=== PATIENT | female | born 1965 | race Caucasian/White ===

== ENCOUNTER 2022-03-29 17:57 | Emergency (ER) | payer OTHER, SELFPAY ==
[2022-03-29 18:10] VITALS: BP 112/76; PULSE 66; RESP 20; TEMP 35.8; O2SAT 100; BMI 22.4
--- NOTE | 2022-03-29 18:15 | ED.UPPEXIN ---
HPI - Extremity Injury (Upper) General Time Seen by Provider: 18:15 Date Seen: 03/29/22 Chief Complaint: Extremity Pain/Injury, Upper Stated Complaint: Broken L wrist Time Seen by Provider: 03/29/22 18:01 Source: patient, RN notes reviewed and old records reviewed Mode of arrival: ambulatory Limitations: no limitations History of Present Illness HPI narrative: Patient is a very pleasant 57-year-old female otherwise healthy who comes to the emergency room with injury to her left wrist. Patient was ice skating when she fell onto her wrist. Since that time she has had pain. She also sustained of laceration to the medial aspect of the wrist. Distally she states she can move her fingers. She denies any other injury. Movement increases her discomfort. She is currently in stabbed to with ice. Related Data Home Medications Medication Instructions Recorded Confirmed cetirizine 10 mg tablet 10 mg PO DAILY PRN 01/27/22 03/29/22 melatonin 3 mg capsule 6 mg PO .Bedtime as needed PRN 01/27/22 03/29/22 venlafaxine 37.5 mg 37.5 mg PO DAILY 01/27/22 03/29/22 capsule,extended release 24 hr Previous Rx's Medication Instructions Recorded levothyroxine 50 mcg tablet 50 mcg PO DAILY #90 tabs 03/16/22 Allergies Allergy/AdvReac Type Severity Reaction Status Date / Time penicillin V Allergy Mild Rash Verified 01/27/22 11:07 Review of Systems Status of ROS: Reports: 6 or more systems reviewed and unremarkable except as noted in History and below Const: Denies: fever Cardio: Denies: chest pain or shortness of breath with exertion Resp: Denies: shortness of breath GI: Denies: abdominal pain PFSH PFSH Surgical History History of hysterectomy with bilateral oophorectomy History of rotator cuff surgery History of shoulder surgery Family History Other Abdominal aortic aneurysm (AAA) Colonic polyp Coronary artery disease Thyroid disease Social History Smoking Status: Never smoker Do you use any of these nicotine containing products: None Second hand tobacco smoke exposure: No How often do you have a drink containing alcohol: 4 or more times a week How many standard drinks containing alcohol do you have on a typical day: 1 or 2 How often do you have six or more drinks on one occasion: Never AUDIT-C Alcohol total score: 4 Non-prescribed substance use: denies use Exam Narrative: Exam Narrative: Patient is alert and oriented. Eyes are clear. No acute distress. Left wrist shows deformity. Distally sensation and motor is intact. Patient still has her wedding rings on which we are attempting to remove. I suspect that the swelling is going to increase. Puncture wound jagged about 3.5 mm noted on the volar medial surface of the wrist. There is some subcutaneous fat extruding from this wound. I do not note a foreign body. There is no erythema. No other wounds in this area. Further exam shows no evidence of head trauma. Oral cavity with moist mucous membranes. Posterior oropharynx is clearly visualized. Heart is with regular rate and rhythm and lungs are clear in all lung bailey. Const: Vital Signs, click to edit/add: Vital Signs - 24 hr 03/29/22 18:10 03/29/22 19:30 Temperature 96.5 F L Pulse Rate [Pulse Oximeter] 66 71 Respiratory Rate 20 16 Blood Pressure [Ri ght Upper Arm] 112/76 143/87 H Pulse Oximetry 100 100 Oxygen Delivery Me thod Room Air Room Air Documenting provider has reviewed patient's vital signs: yes Course Vital Signs Vital signs: Initial Vital Signs Temperature 96.5 F L 03/29/22 18:10 Temperature Source Temporal Artery Scan 03/29/22 18:10 Pulse Rate 66 03/29/22 18:10 Respiratory Rate 20 03/29/22 18:10 Blood Pressure 112/76 03/29/22 18:10 Blood Pressure Mean 88 03/29/22 18:10 Blood Pressure Position Sitting 03/29/22 18:10 Pulse Oximetry 100 03/29/22 18:10 Oxygen Delivery Method 03/29/22 18:10 Vital Signs Temperature 96.5 F L 03/29/22 18:10 Pulse Rate 66 03/29/22 18:10 Respiratory Rate 20 03/29/22 18:10 Blood Pressure 112/76 03/29/22 18:10 Pulse Oximetry 100 03/29/22 18:10 Oxygen Delivery Method 03/29/22 18:10 Temperature 96.5 F L 12/26/22 18:10 Pulse Rate 71 03/29/22 19:30 Respiratory Rate 16 03/29/22 19:30 Blood Pressure 143/87 H 03/29/22 19:30 Pulse Oximetry 100 03/29/22 19:30 Oxygen Delivery Method 03/29/22 19:30 MDM - Extremity Injury (Upper) MDM Narrative Medical decision making narrative: 1. Left wrist fracture-comminuted left wrist fracture. Will be repaired tomorrow. I had the pleasure of speaking with CHASE Guzman from Orthopedics. He has asked me to do H&P on patient so that she may go to the OR tomorrow under the care of Dr. Juarez. COVID test is pending. Patient is placed in a splint. Distally sensation and motor continues to be intact. In the ED patient received Vicodin 08/3250 tablet and Zofran 4 mg p.o.. She appears to be feeling better at this time. Because of the small puncture wound we will be starting patient on Keflex 500 mg p.o. b.i.d. x7 days. Will also give her pain medication through [facility], [place] 5/325, 1-2 tabs p.o. q.4-6 hours p.r.n. pain, 20. With no refills. She may utilize ibuprofen 800 mg every 8 hours if she likes and then use [place] for breakthrough pain. Zofran 4 mg ODT 1 tab p.o. Q 8 hours p.r.n. nausea. 2. Planned surgical intervention-patient will remain NPO tonight but may take pain medications with small sips of water as needed. She is to await phone call from Orthopedics at approximately 0800 hours for further guidance. 3. Clearance for surgery-patient represents low risk for surgery. Exam is negative for any abnormalities. Diet has no personal or family history of DVT, problems with anesthesia with the exception of some nausea and vomiting post anesthesia. No history of malignant hyperthermia in the family. 2. Disposition-home at this time. Patient represents low risk for surgery. Medical Records Attestation: I reviewed the patient's medical records. Imaging Data Left wrist x-ray: Attestation: I have reviewed the pertinent imaging results. My impression: Comminuted fracture of the distal radius. Radiologist's impression: There is an impacted fracture of the distal radius with apex dorsal angulation. The joint spaces are grossly preserved. There is mild carpal soft tissue swelling. Impression: Impacted fracture of the distal radius with apex dorsal angulation and associated soft tissue swelling. Discharge Plan Discharge Clinical Impression: Fracture of left wrist Patient Disposition: Home, Self-Care Condition: Improved Additional Instructions: Start Keflex tonight as prophylaxis for infection. Expect phone call shortly after 0800 hours for surgical time. Please do not eat or drink after midnight.. You may take your pain medications with small sips of water if necessary however. If you do not hear from Orthopedics by 1000 hours call them at [phone]. For pain you may use ibuprofen as needed. For pain not relieved by ibuprofen you may use Vicodin which is a combination of hydrocodone and Tylenol. 1-2 tabs every 4-6 hours as needed. Zofran may be used if you have nausea. Return to the emergency room for worsening symptoms and as needed. Prescriptions: No Action venlafaxine 37.5 mg capsule,extended release 24hr 37.5 mg PO DAILY cetirizine 10 mg tablet 10 mg PO DAILY PRN melatonin 3 mg capsule 6 mg PO .Bedtime as needed PRN levothyroxine 50 mcg tablet 50 mcg PO DAILY Qty: 90 0RF Follow Up/Referrals: Jl Fields PA-C [Primary Care Provider] - Stand Alone Forms: [employer] Info Instructions
--- NOTE | 2022-03-29 18:20 | CRLHL7_ITS ---
For Patients: As a result of the Century Cures Act, medical imaging exams and procedure reports are released immediately into your electronic medical record. You may view this report before your referring provider. If you have questions, please contact your health care provider. Indication: Fall with deformity Comparison: None available. Technique: AP, lateral, and oblique views left wrist were obtained. Findings: There is an impacted fracture of the distal radius with apex dorsal angulation. The joint spaces are grossly preserved. There is mild carpal soft tissue swelling. Impression: Impacted fracture of the distal radius with apex dorsal angulation and associated soft tissue swelling. Dictated by Rosendo Solorio MD @ 03/29/2022 7:26:00 PM (Electronically Signed)
--- NOTE | 2022-03-29 18:36 | ED.NURSE ---
Rings removed and given to spouse.
[2022-03-29] MEDS: HYDROCODONE-ACETAMIN 5-325 MG 1 TAB PO (19:28)
[2022-03-29] MEDS: ONDANSETRON ODT 4 MG TAB PO (19:28)
[2022-03-29 19:30] VITALS: BP 143/87; PULSE 71; RESP 16; O2SAT 100
--- NOTE | 2022-03-29 19:35 | ED.NURSE ---
Puncture wound irrigated with 50ml NS.
[2022-03-29 20:27] LABS: SARS PCR* Negative SARS-CoV-2 (Negative)
== END 2022-03-29 20:21 | disposition home or self-care (01) ==
PROVIDERS: Emergency Provider Family Medicine; PCP Physician Assistant Medical
DX: S52.502A Unspecified fracture of the lower end of left radius, initial encounter for closed fracture (principal); V00.211A Fall from ice-skates, initial encounter
CPT/HCPCS: 29125; 73110; 87635; 99284; A9270

== ENCOUNTER 2022-03-30 06:00 | Day surgery (SDC) | payer OTHER, SELFPAY ==
[2022-03-30] VITALS (8 sets, daily range): BP systolic 96–120; BP diastolic 48–75; PULSE 60–72; RESP 16; TEMP 36.3–36.6; O2SAT 91–100; BMI 22.1
[2022-03-30] MEDS: LACTATED RINGERS 1000 ML 1,000 ML 100 ML IV (07:00)
[2022-03-30] MEDS: SODIUM CHLORIDE 0.9 % (FLUSH) 10 ML SYRINGE IVF (07:07)
[2022-03-30] MEDS: fentaNYL 100 MCG/2 ML inj IVP (07:10)
[2022-03-30] MEDS: MIDAZOLAM HCL 1 MG/ML inj IVP (07:10)
--- NOTE | 2022-03-30 07:15 | CRLHL7_ITS ---
For Patients: As a result of the Cures Act, medical imaging exams and procedure reports are released immediately into your electronic medical record. You may view this report before your referring provider. If you have questions, please contact your health care provider. Indication: LEFT WRIST ORIF Technique: Three fluoroscopic images of the left wrist. Fluoroscopic time 30.6 seconds. IMPRESSION: Fluoroscopic guidance for open reduction internal fixation of distal radial fracture. Dictated by Yemi Waggoner MD @ 03/30/2022 8:31:35 AM (Electronically Signed)
--- NOTE | 2022-03-30 07:20 | SUR.PREOP ---
TIME?OUT:?0708 PT/RN/MDA?VERIFICATION?OF?SURGICAL?SITE Left Wrist,?PROCEDURE Ax block,?AND?CONSENT OBTAINED?PRIOR?TO?INVASIVE?PROCEDURE.
[2022-03-30] MEDS: CEFAZOLIN 1 GM inj IVP (07:35)
--- NOTE | 2022-03-30 08:19 | PM.ORPRC ---
Procedure Note Date of procedure: 03/30/22 Procedure: SURGEON: Charles Juarez MD SCRAP PREPARATION SUPERVISOR: JORDIN Boss PREOPERATIVE DIAGNOSIS: Angulated 3+ part extra-articular left upper extremity distal radius fracture POSTOPERATIVE DIAGNOSIS: Angulated 3+ part extra-articular left upper extremity distal radius fracture NAME OF OPERATION: Open reduction internal fixation ANESTHESIA: Axillary block plus monitored anesthesia care ESTIMATED BLOOD LOSS: 0 mL COMPLICATIONS: None SPECIMENS: None DRAINS: None PREOPERATIVE ANTIBIOTICS: Ancef 1 grams INDICATIONS: The patient is a 57-year-old who fell landing on their upper extremity sustaining the above injury. Given the amount of angulation, reduction and plate fixation were recommended. The risks, benefits and expected outcomes were discussed in detail. These included but were not limited to: Infection, bleeding, injury to blood vessel or nerve, venous thromboembolism. All questions were answered to their satisfaction. Use of an press assistant and feeder was necessary throughout the case for patient positioning and safety, maintenance of the reduction, surgical site dressing and splint application. PROCEDURE: A supraclavicular block was placed by Anesthesia. The patient was placed supine on the operating room table. IV sedation was administered. The reduction was obtained with longitudinal traction and volar force on the distal fragment, held by the press assistant and feeder. The image intensifier was used to confirm an excellent reduction. The extremity was prepped and draped in the usual sterile fashion. The limb was exsanguinated with the Jeanmarie bandage. The pneumatic tourniquet was inflated to 250 mm of mercury. A longitudinal incision was made over the flexor carpi radialis. Subcutaneous dissection was taken sharply through the FCR sheath. The FCR was retracted radially. Sharp dissection was carried through the floor of the FCR sheath. The flexor pollicis longus was retracted ulnarly. Sharp dissection was carried through the radial border of the pronator quadratus which was elevated ulnarly, exposing the fracture site. The press assistant and feeder held retractors to expose the fracture. The volar cortex of the fracture is anatomically aligned. We placed a Synthes standard locking plate over the volar cortex. It was provisionally held with 2 K-wires, while the press assistant and feeder held the reduction. Its placement was confirmed with the image intensifier. We placed a cortical screw in the slot. We placed a locking screw in the shaft. We then filled the distal screw holes with smooth locking pegs using the image intensifier to confirm their extra-articular placement. Finally, a 2nd locking screw was placed in the shaft fragment. This construct was imaged in multiple views and was felt to be well placed with an anatomic reduction and well placed implants. The ulnar wound was explored and was felt to be an outside in puncture wound. This wound and the surgical wound were irrigated normal saline. Subcutaneous tissues were reapproximated a 2-0 Vicryl, skin with a running 3-0 Monocryl in a subcuticular fashion. Glue was used to seal the skin. A dry dressing and short-arm dorsal volar splint was applied. These steps were all completed by the press assistant and feeder. The tourniquet was released, sponge and needle counts were correct x2. The patient tolerated the procedure well, there were no apparent complications. They were taken to the postanesthesia care unit in satisfactory condition. PLAN: The patient will be discharged home. They will work on elevation of the hand and active range of motion of the fingers. They will follow up next week in the office for a wound check with a PA, oblique, lateral and fossa lateral view of the wrist out of the splint prior to being seen in preparation for early active motion with Orthoplast splint protection.
--- NOTE | 2022-03-30 08:24 | P.ORCN_ITS ---
History of Present Illness HPI Date Seen: 03/30/22 Requesting physician: Eva Lindsey Chief complaint: Surgery Narrative: Patient is a 57-year-old, [id number] woman who fell ice skating last evening. She landed on her outstretched left upper extremity. She was diagnosed with a distal radius fracture. Reduction and fixation were recommended. She has never injured this wrist or had surgery previously. She does not have diabetes, does not smoke cigarettes and is not on blood thinners. Review of Systems Narrative: The patient denies: Fever, night sweats, shaking chills, nausea, vomiting, diarrhea, chest pain, chest pressure, shortness of breath, no rash, no change in hearing or vision, no issues with bleeding or clotting PFSH PFSH Surgical History (Updated 03/30/22 @ 11:31 by Sandra Rodriguez) History of hysterectomy with bilateral oophorectomy S/P ORIF (open reduction internal fixation) fracture (03/30/22) Status post right rotator cuff repair (01/24/09) Family History Other Abdominal aortic aneurysm (AAA) Colonic polyp Coronary artery disease Thyroid disease Social History Smoking Status: Never smoker Do you use any of these nicotine containing products: None Second hand tobacco smoke exposure: No How often do you have a drink containing alcohol: 4 or more times a week Alc ohol type: beer, wine and hard liquor How many standard drinks containing alcohol do you have on a typical day: 1 or 2 How often do you have six or more drinks on one occasion: Never AUDIT-C Alcohol total score: 4 Non-prescribed substance use: denies use Caffeine: Yes (2 cups daily) Are you using contraception or practicing any form of control: No Meds Home Medications and Allergies Home Medications Medication Instructions Recorded Confirmed Type cetirizine 10 mg tablet 10 mg PO DAILY PRN 01/27/22 03/29/22 History melatonin 3 mg capsule 6 mg PO .Bedtime as needed PRN 01/27/22 03/29/22 History venlafaxine 37.5 mg 37.5 mg PO DAILY 01/27/22 03/29/22 History capsule,extended release 24 hr Allergies Allergy/AdvReac Type Severity Reaction Status Date / Time penicillin V Allergy Mild Rash Verified 01/27/22 11:07 Ortho Exam Narrative Exam Narrative: The patient is examined supine on the hospital cart in same-day surgery. The left upper extremity is in a short-arm dorsal volar splint. CMS to the fingers appears normal. Const Vital Signs, click to edit/add: Vital Signs - 24 hr 03/30/22 06:21 03/30/22 07:05 03/30/22 07:15 Temperature 97.7 F Pulse Rate 66 72 60 Respiratory Rate 16 16 16 Blood Pressure 104/48 L 120/75 98/70 Pulse Oximetry 97 100 100 Oxygen Delivery Method Room Air Nasal Cannula Nasal Cannula Oxygen Flow Rate 2 2 Results Diagnostic results Additional Comments: Three views of the left wrist show an extra-articular distal radius fracture with apex volar angulation. There is a significant amount of dorsal cortex c omminution. There is no gas in the soft tissues. Assessment and Plan Assessment and plan (1) Fracture of left wrist: Status: Resolved Assessment and Plan: per extremity distal radius fracture I told the patient and her that her injury is best treated with ORIF. We will plan to take her to the operating room now. Plan Angulated, comminuted left upper extremity distal radius fracture I told the patient and her that her injury is best treated with ORIF. We will plan to take her to the operating room now.
--- NOTE | 2022-03-30 08:45 | W.ANESCHARGE ---
Anesthesia Charges Start Date/Time Anesthesia Start Date: 03/30/22 Anesthesia Start Time: 07:27 Stop Date/Time Anesthesia Stop Date: 03/30/22 Anesthesia Stop Time: 08:45 Summary Emergency: No
--- NOTE | 2022-03-30 09:11 | SUR.PHASEII ---
Pt tolerated coffee, water, and pudding.
--- NOTE | 2022-03-30 09:15 | W.PM.NB ---
Nerve Block Nerve Block Time Seen by Provider: 07:00 Date Seen: 03/30/22 Type of block requested by surgeon for post-operative analgesia: axillary Side: left Time out performed: Yes Verification of patient name: Yes Verification of date of : Yes Site marking: site marked Name of person performing procedure: Jeramy Dupont Continuous monitoring Was continuous monitoring of O2 sat, B/P, satellite project site monitor, recorded every 15 minutes?: Yes Procedure Checklist: sterile prep, needles and gloves Ultrasound guided. Images saved: Yes Medications given in 5ml increments after negative aspiration: Ropivicaine %: 0.5 mL: 20 Needle gauge: 20 Decadron (mg): 10 Precedex (mcg): 25 Patient tolerated procedure well: Yes Additional comments: Injected in 5ml increments after negative aspiration Block Charges Block Charge (with Pro Fee): Axillary Nerve Use of Ultrasound Machine for Block: Yes- US Guidance/pain block
--- NOTE | 2022-03-30 09:48 | SUR.PHASEII ---
Pt verbalized readiness to be discharged. Pt and verbalized understanding of discharge instructions.
== END 2022-03-30 09:48 | disposition home or self-care (01) ==
PROVIDERS: PCP Physician Assistant Medical; Visit Provider Orthopaedic Surgery
PROC: (CPT 25575; principal; 2022-03-30 07:15)
DX: S52.552A Other extraarticular fracture of lower end of left radius, initial encounter for closed fracture (principal); W00.0XXA Fall on same level due to ice and snow, initial encounter; Y93.21 Activity, ice skating; Y92.330 Ice skating rink (indoor) (outdoor) as the place of occurrence of the external cause; Y99.8 Other external cause status
CPT/HCPCS: 25607; 01830; 64417; 73110; 76000; 76942; A4580; C1713; J0690; J1100; J2250; J2370; J2405; J2704; J2795; J3010; J7120

== ENCOUNTER 2022-04-07 13:48 | Outpatient (RCR) | payer OTHER, SELFPAY | END 2022-10-21 23:59 | disposition home or self-care (01) | PROVIDERS: PCP Physician Assistant Medical; Visit Provider Orthopaedic Surgery | DX: M25.532 Pain in left wrist (principal); Z51.89 Encounter for other specified aftercare | CPT/HCPCS: 97165; L3906 ==

== ENCOUNTER 2022-06-23 07:11 | Outpatient (CLI) | payer OTHER, SELFPAY | END 2022-06-23 07:12 | disposition home or self-care (01) | PROVIDERS: PCP Physician Assistant Medical; Visit Provider Physician Assistant Medical | DX: Z00.00 Encounter for general adult medical examination without abnormal findings (principal); E03.9 Hypothyroidism, unspecified; N95.9 Unspecified menopausal and perimenopausal disorder | CPT/HCPCS: 80053; 80061; 84443 ==

== ENCOUNTER 2022-10-13 08:52 | Day surgery (SDC) | payer OTHER, SELFPAY ==
[2022-10-13] MEDS: KETOROLAC OPHTH 0.5% 1 DROP EYE-RIGHT ×2 (09:15→09:20)
[2022-10-13] MEDS: TETRACAINE 0.5% OPHTH 1 DROP EYE-RIGHT ×2 (09:15→09:20)
[2022-10-13 09:17] VITALS: BMI 22.2
[2022-10-13] MEDS: SODIUM CHLORIDE 0.9 % (FLUSH) 10 ML SYRINGE IVF (09:20)
[2022-10-13 09:25] VITALS: BP 125/81; PULSE 72; RESP 16; TEMP 36.7; O2SAT 100
--- NOTE | 2022-10-13 09:38 | W.ANESCHARGE ---
Anesthesia Charges Start Date/Time Anesthesia Start Date: 10/13/22 Anesthesia Start Time: 09:58 Stop Date/Time Anesthesia Stop Date: 10/13/22 Anesthesia Stop Time: 10:33
--- NOTE | 2022-10-13 09:48 | SUR.PREOP ---
The eye drops brought by the patient (Ketorolac and Prednisolone) are examined and I have determined they are labeled by the patient's pharmacy for this patient as prescribed by the surgeon. The bottles are intact, recently obtained and appear to be correct.
[2022-10-13] MEDS: TETRACAINE 0.5% OPHTH 2 DROP EYE-RIGHT (10:02)
[2022-10-13] MEDS: BALANCED SALT IRRIG SOLN 15 ML EYE-RIGHT (10:08)
--- NOTE | 2022-10-13 10:08 | W.ANESCHARGE ---
Anesthesia Charges Start Date/Time Anesthesia Start Date: 10/13/22 Anesthesia Start Time: 09:58 Stop Date/Time Anesthesia Stop Date: 10/13/22 Anesthesia Stop Time: 10:33
--- NOTE | 2022-10-13 10:39 | W.PM.OPTPROC ---
Procedure Note Date of procedure: 10/13/22 Will [facility] bill your pro fee for this procedure?: Yes Procedure Description: SURGEON: Amy Juarez MD PREOPERATIVE DIAGNOSIS: Nuclear sclerotic cataract, right eye. POSTOPERATIVE DIAGNOSIS: Nuclear sclerotic cataract, right eye. NAME OF OPERATION: Phacoemulsification of cataract with posterior chamber intraocular lens implantation in the right eye. ANESTHESIA: Topical. ESTIMATED BLOOD LOSS: Less than 2 cc. COMPLICATIONS: None. PATHOLOGY SPECIMEN: None. INDICATIONS: See consult note for details. The risks, benefits and alternatives of the procedure were explained to the patient, who elected to proceed and signed informed consent to do so. PROCEDURE: The patient was brought to the pre-holding area where the right eye was identified as the operative eye. I placed my initials above this eye. The patient received eye drops consisting of 0.5% tetracaine, 1% tropicamide, 10% phenylephrine, and 0.5% ketorolac. The patient was then brought to the operating room where the right eye was again identified as the operative eye. The eye was prepped with Betadine and draped in the usual sterile ophthalmic fashion. A #15 super-sharp blade was used to create a paracentesis site. 1% non-preserved intracameral lidocaine was injected into the anterior chamber. Endocoat was injected into the anterior chamber. A 2.4 mm keratome was used to create a three-plane self-sealing incision 1 mm anterior to the temporal limbus. A cystotome was used to create an anterior capsular leaflet. The Utrata forceps were used to extend this to form a continuous curvilinear capsulorrhexis. Hydrodissection was performed. The cataract was removed with phacoemulsification using the [id number] technique. The irrigation and aspiration tip was used to remove the remaining cortex. Healon was injected into the capsular bag. An BENNIE ZCB00 intraocular lens of 22.0 diopters was injected into the capsular bag. The irrigation and aspiration tip was used to remove the remaining viscoelastic. Balanced salt solution on a cannula was used to hydrate the wound, and the wound was found to be watertight. The pupil was noted to be round. DISPOSITION: The patient was taken to the recovery room and discharged to home in stable condition. The patient was instructed to call me or go to the emergency department with any sudden change, including dramatic loss of vision, severe pain in the eye or eyebrow region, nausea, or vomiting. The patient will follow up in the clinic tomorrow morning.
[2022-10-13 10:43] VITALS: BP 124/78; PULSE 69; RESP 16; TEMP 36.6; O2SAT 96
== END 2022-10-13 10:50 | disposition home or self-care (01) ==
LOC: OR 08:52
PROVIDERS: PCP Physician Assistant Medical; Visit Provider Ophthalmology
PROC: (CPT 66984; principal; 2022-10-13 09:00)
DX: H25.11 Age-related nuclear cataract, right eye (principal)
CPT/HCPCS: 66984; 00142; A9270; J2250; J3010; V2632

== ENCOUNTER 2023-01-03 14:33 | Outpatient (CLI) | payer OTHER, SELFPAY ==
--- NOTE | 2023-01-03 15:00 | CRLHL7_ITS ---
For Patients: As a result of the Century Cures Act, medical imaging exams and procedure reports are released immediately into your electronic medical record. You may view this report before your referring provider. If you have questions, please contact your health care provider. BILATERAL SCREENING MAMMOGRAM WITH COMPUTER-AIDED DETECTION AND TOMOSYNTHESIS TECHNIQUE: CC and MLO views were obtained. These mammographic images have been obtained using full-field digital technique. These mammographic images were interpreted with the benefit of computer-aided detection. Breast Tomosynthesis was used in this interpretation. COMPARISON FILM: 10/27/20, 10/22/19, 09/06/18. FINDINGS: There are scattered areas of fibroglandular density IMPRESSION: There is no radiographic evidence for malignancy. ASSESSMENT: BI-RADS Category 1: Negative RECOMMENDATION: Routine screening mammogram in 1 year. A lay language report of this examination will be provided to the patient. Yemi Waggoner M.D. Diagnostic Radiologist [email or web address] WILLIE/Dictated by: Yemi Waggoner MD @ 01/04/2023 12:22:00 PM (Electronically Signed)
== END 2023-01-03 14:34 | disposition home or self-care (01) ==
LOC: MAMMO 14:34
PROVIDERS: PCP Physician Assistant Medical; Visit Provider Physician Assistant Medical
DX: Z12.31 Encounter for screening mammogram for malignant neoplasm of breast (principal)
CPT/HCPCS: 77063; 77067

== ENCOUNTER 2023-01-17 17:02 | Outpatient (CLI) | payer OTHER, SELFPAY ==
--- NOTE | 2023-01-17 16:30 | CRLHL7_ITS ---
For Patients: As a result of the Century Cures Act, medical imaging exams and procedure reports are released immediately into your electronic medical record. You may view this report before your referring provider. If you have questions, please contact your health care provider. INDICATION: Tremors. COMPARISON: None. TECHNIQUE: Multiplanar T1, T2, FLAIR and diffusion-weighted imaging. FINDINGS: Normal brain parenchymal morphology and signal intensity. No intracranial hemorrhage. No abnormal ventricular dilatation. Intracranial vascular flow voids preserved. No mass effect. No midline shift. No restricted diffusion to suggest acute ischemia. No susceptibility artifact of remote hemorrhage. Small developmental venous anomaly left basal ganglia Bilateral orbits are unremarkable. Normal appearing sella. Mild mucosal thickening of left maxillary sinus. Remaining visualized paranasal sinuses mastoid air cells are unremarkable. IMPRESSION: 1. No acute intracranial abnormality. 2. Normal brain parenchymal morphology and signal intensity. 3. No acute or chronic intracranial hemorrhage. Dictated by Audi Mendoza MD @ 01/17/2023 7:59:57 PM (Electronically Signed)
== END 2023-01-17 17:03 | disposition home or self-care (01) ==
LOC: MRI 17:02
PROVIDERS: PCP Physician Assistant Medical; Visit Provider Physician Assistant Medical
DX: R25.1 Tremor, unspecified (principal)
CPT/HCPCS: 70551

== ENCOUNTER 2023-01-19 07:48 | Outpatient (CLI) | payer OTHER, SELFPAY ==
--- NOTE | 2023-01-19 08:15 | CRLHL7_ITS ---
For Patients: As a result of the Century Cures Act, medical imaging exams and procedure reports are released immediately into your electronic medical record. You may view this report before your referring provider. If you have questions, please contact your health care provider. INDICATION: Vocal changes. Dysphagia. TECHNIQUE: Recorded video swallow performed in conjunction with speech therapy. FINDINGS: The patient tolerated all preparations of barium very well. No aspiration. No penetration. No significant holdup of barium. With a chin-tuck maneuver it was much easier for the patient to ingest barium. Please see detailed notes from speech therapy. 2 minutes 27 seconds fluoroscopy time utilized. IMPRESSION: Essentially normal recorded video swallow. A chin-tuck maneuver did aide in the passage of barium. Please see detail notes from speech therapy. Dictated by Magno Walker MD @ 01/19/2023 11:25:39 AM (Electronically Signed)
--- NOTE | 2023-01-19 16:47 | SLP.EVAL ---
Dr. Ivey Please review, sign and return. Dr. Donnie Mckenzie asked that I also send this to you for review. Thank you Crystal Zavala, JOB SPECIFICATION WRITER JOB SPECIFICATION WRITER Chet Rosenberg Start: 01/19/23 09:51 Freq: Status: Active Protocol: Document 01/19/23 09:52 HJS (Rec: 01/19/23 10:16 HJS [id number]) E-signed By Crystal Zavala, NAZ, JOB SPECIFICATION WRITER JOB SPECIFICATION WRITER System Review History & Reason For Referral Type of Speech Evaluation Modified Barium Swallow Evaluation Rehabilitation Order Evaluation Date of Order 01/11/23 Reason for Referral coughing/choking with liquids Medical Diagnosis vocal fold dysfunction Treatment Diagnosis dysphagia Hearing Information Hearing Status Within normal Vision Information Vision Status within normal Patient Orientation Orientation & Mental Status within normal JOB SPECIFICATION WRITER Initial Assessment/POC Subjective Information Subjective/Pain Comment Patient independently ambulated to the xray suite. Assessment & Impression Assessment/Impression Patient is a 57 year old female referred for a modified barium swallow study due to choking/coughing with thin liquid. She started to notice this after having pertussis a year and a half ago and bronchitis a few months ago both times with significant, hard coughing. She has noticed a change in her voice too - it is lower. Dr. Ivey diagnosed vocal fold dysfunction, specifically the folds are not fully adducting. She reports she was just recently evaluated by a neurologist for possible neurological disease such as ALS but this was negative. ORAL MOTOR FUNCTION AND DENTITION Adequate tongue and lip movement and adequate natural dentition. THIN LIQUID Patient took sips of thin liquid by cup. She swallowed and reported the swallow was a little effortful and needed to swallow a couple of times to clear. No penetration or aspiration occurred. MILDLY THICK LIQUID (NECTAR) Patient took sips of mildly thick liquid. No significant change to ease of swallow. No penetration or aspiration. THIN LIQUID WITH CHIN TUCKS Patient took sips of thin liquid and was viewed with a central chin tuck as well as a chin tuck and turn to the right and left. She reported that the central chin tuck was much easier going down. The turns to the right and left made no difference. Again, no penetration or aspiration occurred. PUREE Patient given a teaspoon of puree. She was able to manipulate and swallow without penetration or aspiration. Slightly more residual after the swallow but not significant. MUFFIN AND COOKIE WITH BARIUM PUREE Patient given separate trials of muffin and cookie each mixed with barium puree. She was able to chew and swallow without penetration or aspiration and no significant pharyngeal residue. IMPRESSIONS AND RECOMMENDATIONS Patient did not exhibit any penetration or aspiration however swallowing especially thin liquids did require a little effort. Trialed a central chin tuck and a chin tuck with head turn to the right and left. The central chin tuck patient reported was the easiest and most helpful. Recommended to patient that she use a chin tuck with thin liquids. Will give patient information for an JOB SPECIFICATION WRITER with vocal fold dysfunction experience for therapy if appropriate. The images were reviewed with the patient and questions answered. Therapist Signature & License # I Certify That Therapy Services Provided Therapist Signature & License Number Crystal Zavala, [facility]JOB SPECIFICATION WRITER, # [id number] Physician Signature Signature of Physician Indicates Medically Needed Services Physician Signature & Date Required Please Sign/Date Here Speech/Language Pathology Billing Units Billing Units Eval Swallow Motion Fluoro 1
== END 2023-01-19 07:49 | disposition home or self-care (01) ==
LOC: RAD 07:49
PROVIDERS: PCP Physician Assistant Medical; Visit Provider Otolaryngology
DX: R13.10 Dysphagia, unspecified (principal); T17.908A Unspecified foreign body in respiratory tract, part unspecified causing other injury, initial encounter
CPT/HCPCS: 74230; 92611

== ENCOUNTER 2023-01-26 09:46 | Outpatient (CLI) | payer OTHER, SELFPAY | END 2023-01-26 09:47 | disposition home or self-care (01) | PROVIDERS: PCP Physician Assistant Medical; Visit Provider Physician Assistant Medical | DX: R13.10 Dysphagia, unspecified (principal); R49.0 Dysphonia; R25.1 Tremor, unspecified; E03.9 Hypothyroidism, unspecified; N95.9 Unspecified menopausal and perimenopausal disorder; C54.1 Malignant neoplasm of endometrium; Z85.42 Personal history of malignant neoplasm of other parts of uterus | CPT/HCPCS: 82550 ==

== ENCOUNTER 2023-07-27 07:45 | Outpatient (CLI) | payer OTHER, MEDICARE, SELFPAY ==
--- OUTSIDE RECORDS SUMMARY | 2023-07-28 06:09 | XMS_ITS | Referral Summary ---
Author Name Unknown Organization [facility] Address [address] [place] [id number] Care Team Providers Care Exhibition Specialist Name Role Phone Unavailable Primary Care Provider Unavailabl e Source Comments Patient records contain information from all sites at [facility]. For routine questions regarding patient records, call [phone] during business hours, M-F 8:00 AM - 5:00 PM Central Time. Record requests for emergency care only can be directed to [phone] at any time.[facility] Allergies Active Allergy Reactions Criticality Noted Date Comments Penicillin V Rash Low 01/27/2022 Penicillins Rash High 06/18/2013 Medications Medication Sig Dispensed Refills Start Date End Date Status levothyroxine (SYNTHROID, LEVOTHROID) 50 mcg tablet Take 1 tablet by mouth daily. Active venlafaxine XR (EFFEXOR-XR) 37.5 mg 24 hr capsule Take 1 capsule by mouth daily. Active Active Problems No known active problems Social History Tobacco Use Types Packs/Day Years Used Date Smoking Tobacco: Never Smokeless Tobacco: Never Tobacco Cessation:Counseling Given: Not Answered Alcohol Use Standard Drinks/Week Comments Yes 6 (1 standard drink = 0.6 oz pur e alcohol) Nutrition Answer Date Recorded Nutrition: EVOO Fat Source Unknown 01/12 Nutrition: Servings of Fruits/Vegetables per Day Not on file 01/12/2023 Dental Answer Date Recorded Dental: Regular Dentist Unknown 01/13/20 Sex and Gender Information Value Date Recorded Sex Assigned at Not on file Gender Identity Not on file Sexual Orientation Not on file Last Filed Vital Signs Vital Sign Reading Time Taken Comments Blood Pressure 99/72 01/18/2023 12:54 PM CDT Pulse 80 01/18/2023 12:54 PM CDT Temperature 36.7 ??C (98.1 ??F) 01/18/2023 1 2:54 PM CDT Respiratory Rate 06/21/2013 5:27 PM CDT Value from [facility]. Oxygen Saturation 99% 01/18/2023 12: 54 PM CDT Inhaled Oxygen Concentration - - Weight 63.9 kg (140 lb 14 oz) 01/18/2023 12:54 PM CDT Height 168.1 cm (5' 6.18) 01/18/2023 1 2:54 PM CDT Body Mass Index 22.61 01/18/2023 12:54 PM CDT Plan of Treatment Not on file
--- OUTSIDE RECORDS SUMMARY | 2023-07-28 06:09 | XMS_ITS | Clinical Summary ---
Author Name Unknown Organization [facility] Address [address] [place] [id number] Care Team Providers Care Frickertron Checker Name Role Phone Unavailable Primary Care Provider Unavailabl e Source Comments Patient records contain information from all sites at [facility]. For routine questions regarding patient records, call [phone] during business hours, M-F 8:00 AM - 5:00 PM Central Time. Record requests for emergency care only can be directed to [phone] at any time.[facility] Allergies Active Allergy Reactions Criticality Noted Date [...] 01/18/2023 1 2:54 PM CDT Respiratory Rate 12 06/21/2013 5:27 PM CDT Value from [facility]. Oxygen Saturation 99% 01/18/2023 12: 54 PM CDT Inhaled Oxygen Concentration - - Weight 63.9 kg (140 lb 14 oz) 01/18/2023 12:54 PM CDT Height 168.1 cm (5' 6.18) 01/18/2023 1 2:54 PM CDT Body Mass Index 22.61 01/18/2023 12:54 PM CDT Plan of Treatment Health Maintenance Due Date Last Done Comments CT Colonography 1964 Cologuard 1964 Colonoscopy 1964 Colorectal Cancer Screening 1964 FIT 1964 Fasting Glucose for Diabetes Screening 1964 HIV Screening 1964 Hepatitis C Screening 1964 Lipid (Cholesterol) Screening 1964 Mammogram 1964 Thyroid Stimulating Hormone (TSH) test for thyroid function 1964 Hepatitis B Vaccines (1 of 3 - 19+ 3-dose series) 1983 Influenza Vaccine (#1) 2023 , 01/22/2020, 01/11/2019, Additional history exists Zoster Vaccines (2 of 2) 03/03/2023 01/06/2023 Depression Screening (Annual PHQ-2) 04/04/2023 DTaP,Tdap,and Td Vaccines (2 - Td or Tdap) 12/21/2027 12/20/2017 COVID-19 Vaccine Completed 03/03/2023, 01/2023, 02/08/2021, Additional history exists Pneumococcal vaccine (0-64 years) Aged Out No longer eligible based on patient's age to complete this topic
--- OUTSIDE RECORDS SUMMARY | 2023-07-28 06:09 | XMS_ITS ---
Author Name Unknown Organization [facility] Address [address] [place] [address] Care Team Providers Care Corner Cutter Machine Operator Name Role Phone Unavailable Unavailable Unavailable Surgery Details Not on file Complications Check Surgery Details section. Procedure Estimated Blood Loss Check Surgery Details section. Procedure Findings Check Surgery Details section. Procedure Specimens Taken Check Surgery Details section.
== END 2023-07-27 07:46 | disposition home or self-care (01) ==
LOC: NFLDREF 07-28 06:07
PROVIDERS: PCP Physician Assistant Medical; Referring Provider Physician Assistant Medical; Visit Provider Physician Assistant Medical
DX: E03.9 Hypothyroidism, unspecified (principal); Z12.11 Encounter for screening for malignant neoplasm of colon; Z00.00 Encounter for general adult medical examination without abnormal findings; N95.9 Unspecified menopausal and perimenopausal disorder; Z13.220 Encounter for screening for lipoid disorders
CPT/HCPCS: 80053; 80061; 84443

== ENCOUNTER 2023-10-19 15:01 | Outpatient (CLI) | payer MEDICARE, BC, SELFPAY ==
--- OUTSIDE RECORDS SUMMARY | 2023-10-19 15:05 | XMS_ITS ---
Author Organization [facility] Address [address] [place] [address] Care Team Providers Care Manager Delivery Name Role Phone Unavailable Unavailable Unavailable Surgery Details Not on file Complications Check Surgery Details section. Procedure Estimated Blood Loss Check Surgery Details section. Procedure Findings Check Surgery Details section. Procedure Specimens Taken Check Surgery Details section.
--- OUTSIDE RECORDS SUMMARY | 2023-10-19 15:05 | XMS_ITS | Encounter Summary ---
Author Organization [facility] Address [address] [place] [address] Care Team Providers Care Music Library Assistant Name Role Phone Unavailable Primary Care Provider Unavailabl e Reason for Referral * Outpatient (Routine) - Closed Specialty Diagnoses / Procedures Referred By Paolo llanos Referred To Contact Diagnoses Other Motor Neuron Disease (HCC) Procedures [facility] Tyson Carreon M.D. [address] [place] [address] [facility] Referral ID Status Reason Start Date Expiration Date Visits Re quested Visits Authorized [id number] Closed 10/17/2023 10/16/2024 1 1 Reason for Visit * Outpatient (Routine) - Closed Specialty Diagnoses / Procedures Referred By Paolo llanos Referred To Contact Diagnoses Other Motor Neuron Disease (HCC) Procedures [facility] Tyson Carreon M.D. [address] [place] [address] [facility] Referral ID Status Reason Start Date Expiration Date Visits Re quested Visits Authorized [id number] Closed 10/17/2023 10/16/2024 1 1 Encounter Details Date Type Department Care Team (Latest Contact Info) Description 10/19/2023 7:11 AM CDT Hospital Encounter Department of Neurology in [place], [place] [address] [place] [phone] Tyson Carreon M.D. [address] [place] [phone] Other Motor Neuron Disease (HCC) Social History Tobacco Use Types Packs/Day Years Used Date Smoking Tobacco: Never Smokeless Tobacco: Never Alcohol Use Standard Drinks/Week Comments Yes 5 (1 standard drink = 0.6 oz pur e alcohol) Dental Answer Date Recorded Dental: Regular Dentist Unknown 01/13/20 Sex and Gender Information Value Date Recorded Sex Assigned at Not on file Gender Identity Not on file Sexual Orientation Not on file documented as of this encounter Plan of Treatment Upcoming Encounters Date Type Department Care Team (Late st Contact Info) Description 10/25/2023 3:30 PM CDT Office Visit Department of Neurology in [address] [phone] Tyson Carreon M.D. [address] [place] [phone] Discharge Disposition: Home or Self Care 12/01/2023 8:15 PM CDT Appointment Department of Radiology, [facility] in [place], [place] [address] [place] [phone] Tyson Carreon M.D. [address] [place] [phone] 01/09/2024 1:00 PM CDT Appointment Department of Pulmonary Medicine in [address] [phone] Tyson Carreon M.D. [address] [place] [phone] Discharge Disposition: Home or Self Care Pending Results Name Type Priority Associated Diagnoses Date /Time EM[facility] Neurology Routine Other Motor Neuron Disease (HCC) 10/19/2023 7:11 AM CDT documented as of this encounter Procedures Procedure Name Priority Date/Time Associated Diagnosis Comments EMG Routine 10/19/2023 7:11 AM CDT Other Motor Neuron Disease (HCC) Procedure Note - Kylie Alcocer M.D. - 10/19/2023 7:11 AM CDTThis note is in progress. 19-Oct-2023 Electromyography Final Report Study Number: 1 EM[facility] Clinical Biostatistics Director: Kylie Alcocer. 127 or [phone] Referred by: TYSON CARREON (127 or [phone]) Referred for: Query bulbar onset ALS Referral Code: 057 RX: [id number] SUMMARY: Prior to starting the procedure, the patient's identity wasverified, pertinent available records were reviewed, the nature of theprocedure was explained, the appropriate sites of the exam were confirmeddirectly with the patient, and a pre-procedure pause was performed forfinal verification of all of the above. Nerve conduction studies of the right upper and lower limb were normal.Needle evaluation revealed fasciculation potentials in the cervical,thoracic, lumbosacral and cranial myotomes with rare fibrillationpotentials noted at the FDI and T6 paraspinals. There was reducedrecruitment of mildly long duration high amplitude motor unit potentialsnoted at the tibialis anterior, first dorsal interosseous and in thecranial myotome. There were occasional varying motor unit potentialsnoted in the cranial myotome. CLINICAL INTERPRETATION: Abnormal study. The electrodiagnostic findingsare in keeping with a mild/early chronic neurogenic process affectingmotor neurons or their axons primarily in the cranial myotome with milddistal changes in the lumbosacral and cervical myotomes. Alberto Alcocer (127 or [phone]) NERVE CONDUCTIONS Record Rep Normal Normal Distal Normal F-Wave F-Wave Temp Nerve Type Site Stim Side Amp Amp CV CV Lat Lat Lat Est (??C) Fibular Motor EDB R 3.8 (> 2.0) 48 (> 41) 4.6 (< 6.6) 50.6 50.4 29.6 Sural Sensory Ankle R 10 (> 6.0) 43 (> 40) 3.8 (< 4.5) 29.7 Ulnar Motor ADM R 7.5 (> 6.0) 64 (> 51) 2.9 (< 3.6) 24.2 22.6 31.6 Median Sensory Dig II R 32 (> 15.0) 58 (> 56) 3.4 (< 3.6) 31.3 NEEDLE EMG Ins Spont MUP Recruitment Duration Amplitude Phases Muscle Side Act Fib Fasc Normal Activ Reduced Rapid Long Short High Low %Turns First dorsal interosseous R INC +/- ++ ----- + + Deltoid R INC 0 + NL Triceps brachii R NL 0 0 NL T10 paraspinal R INC 0 +/- NL T6 paraspinal R INC + + ----- + Vastus medialis R NL 0 + NL Gastrocnemius (medial head) R INC 0 + NL Tibialis anterior R INC 0 + ----- + + Genioglossus R ----- + + 25% ++ Comment: varying Orbicularis marciano R NL 0 0 NL Comment: occ varying Sternocleidomastoid R INC 0 + ----- + ++ + 50% ++ Comment: varying This interpretation has been electronically signed: Kylie Alcocer M.D. at 10/19/2023 12:20:24 PM CDT documented in this encounter Visit Diagnoses Diagnosis Other Motor Neuron Disease (HCC) documented in this encounter
--- OUTSIDE RECORDS SUMMARY | 2023-10-19 15:05 | XMS_ITS | Clinical Summary ---
Author Organization [facility] Address [address] [place] [address] Care Team Providers Care Salesperson Handbags Name Role Phone Unavailable Primary Care Provider Unavailabl e Source Comments Patient records contain information from all sites at [facility]. For routine questions regarding patient records, call [phone] during business hours, M-F 8:00 AM - 5:00 PM Central Time. Record requests for emergency care only can be directed to [phone] at any time[address] Allergies Active Allergy Reactions Criticality Noted Date Comments Penicillin V Rash Low 01/27/2022 Penicillins Rash High 06/18/2013 Medications Medication Sig Dispensed Refills Start Date End Date Status levothyroxine (SYNTHROID, LEVOTHROID) 50 mcg tablet Take 1 tablet by mouth daily. Active venlafaxine XR (EFFEXOR-XR) 37.5 mg 24 hr capsule Take 1 capsule by mouth every other day. Active Active Problems No known active problems Encounters Date Type Department Care Team Description 10/19/2023 7:11 AM CDT Hospital Encounter Department of Neurology in [place], [place] [address] [place] [address] Tyson Carreon M.D. Other Motor Neuron Disease (HCC) 10/18/2023 Clinical Communication Department of Neurology in [address] [phone] Tyson Carreon M.D. Follow-up Orders (MRI in [place] ) 10/17/2023 2:11 PM CDT - 10/17/2023 11:59 PM CDT Hospital Encounter Department of Laboratory Medicine in [address] [phone] Tyson Carreon M.D. Other Motor Neuron Disease (HCC) Discharge Disposition: Home or Self Care 10/17/2023 1:00 PM CDT Office Visit Department of Neurology in [address] [phone] Tyson Carreon M.D. Other Motor Neuron Disease (HCC) (Primary Dx); Anterior Horn Cell Disease (HCC) Discharge Disposition: Home or Self Care 10/12/2023 Clinical Communication Department of Neurology in [address] [phone] Tyson Carreon M.D. Order Request (F/u clinical visit ) from Last 3 Months Social History Tobacco Use Types Packs/Day Years Used Date Smoking Tobacco: Never Smokeless Tobacco: Never Tobacco Cessation:Counseling Given: Not Answered Alcohol Use Standard Drinks/Week Comments Yes 5 (1 standard drink = 0.6 oz pur e alcohol) Dental Answer Date Recorded Dental: Regular Dentist Unknown 01/13/20 Sex and Gender Information Value Date Recorded Sex Assigned at Not on file Gender Identity Not on file Sexual Orientation Not on file Last Filed Vital Signs Vital Sign Reading Time Taken Comments Blood Pressure 118/83 10/17/2023 1:02 PM CDT Pulse 77 10/17/2023 1:02 PM CDT Temperature 36.7 ??C (98.1 ??F) 10/17/2023 1 :02 PM CDT Respiratory Rate 12 06/21/2013 5:27 PM CDT Value from [employer]. Oxygen Saturation 98% 10/17/2023 1:0 2 PM CDT Inhaled Oxygen Concentration - - Weight 61.3 kg (135 lb 2.3 oz) 10/17/2023 1:02 PM CDT Height 168.1 cm (5' 6.18) 10/17/2023 1 :02 PM CDT Body Mass Index 21.69 10/17/2023 1:02 PM CDT Plan of Treatment Upcoming Encounters Date Type Department Care Team (Late st Contact Info) Description 10/25/2023 3:30 PM CDT Office Visit Department of Neurology in [address] [phone] Tyson Carreon M.D. [address] [place] [phone] Discharge Disposition: Home or Self Care 12/01/2023 8:15 PM CDT Appointment Department of Radiology, [facility] [place] in [place], [place] [address] [place] [phone] Tyson Carreon M.D. [address] [place] [phone] 01/09/2024 1:00 PM CDT Appointment Department of Pulmonary Medicine in [address] [phone] Tyson Carreon M.D. [address] [place] [phone] Discharge Disposition: Home or Self Care Health Maintenance Due Date Last Done Comments CT Colonography 1964 Cologuard 1964 Colonoscopy 1965 Colorectal Cancer Screening 1964 FIT 1964 Fasting Glucose for Diabetes Screening 1964 HIV Screening 1964 Hepatitis C Screening 1964 Lipid (Cholesterol) Screening 1964 Mammogram 1964 Hepatitis B Vaccines (1 of 3 - 19+ 3-dose series) 1983 Depression Screening (Annual PHQ-2) 04/04/2023 Influenza Vaccine (#1) 2024 2, 01/22/2020, 01/11/2019, Additional history exists Thyroid Stimulating Hormone (TSH) test for thyroid function 10/16/2024 10/17/2023 DTaP,Tdap,and Td Vaccines (2 - Td or Tdap) 12/21/2027 12/20/2017 COVID-19 Vaccine Completed 03/03/2023, 01/2023, 02/08/2021, Additional history exists Zoster Vaccines Completed 08/01/2023, 01/06/2023 Pneumococcal vaccine (0-64 years) Aged Out No longer eligible based on patient's age to complete this topic Procedures Procedure Name Priority Date/Time Associated Diagnosis Comments EMG Routine 10/19/2023 7:11 AM CDT Other Motor Neuron Disease (HCC) Procedure Note - Kylie Alcocer M.D. - 10/19/2023 7:11 AM CDTThis note is in progress. 19-Oct-2023 Electromyography Final Report Study Number: 1 EMG Ballistic Technician: Kylie Alcocer. 127 or [phone] Referred by: TYSON CARREON (127 or [phone]) Referred for: Query bulbar onset ALS Referral [...] and cervical myotomes. Alberto Alcocer (127 or [phone]) NERVE CONDUCTIONS Record Rep Normal Normal Distal [...] Alcocer M.D. at 10/19/2023 12:20:24 PM CDT LYME AB MODIFIED 2-TIER W/REFLEX, S Routine 10/17/2023 11:00 PM CDT Other Motor Neuron Disease (HCC) MYELOPATHY, AUTOIMM/PARANEO, SERUM Routine 10/17/2023 2:46 PM CDT Other Motor Neuron Disease (HCC) NV T4 FREE Routine 10/17/2023 2:43 PM CDT THYROPEROXIDASE (TPO) ABS, S Routine 10/17/2023 2:43 PM CDT CRYOPRESERVATION FOR MOLEC STUDIES Routine 10/17/2023 2:43 PM CDT Other Motor Neuron Disease (HCC) THYROID FUNCTION CASCADE, S Routine 10/17/2023 2:43 PM CDT Other Motor Neuron Disease (HCC) PERNICIOUS ANEMIA CASCADE, S Routine 10/17/2023 2:43 PM CDT Other Motor Neuron Disease (HCC) CREATININE WITH EGFR, S/P Routine 10/17/2023 2:43 PM CDT Other Motor Neuron Disease (HCC) PHOSPHORUS (INORGANIC), S Routine 10/17/2023 2:43 PM CDT Other Motor Neuron Disease (HCC) CALCIUM, TOT, S/P Routine 10/17/2023 2:43 PM CDT Other Motor Neuron Disease (HCC) PARATHYROID HORMONE (PTH), S Routine 10/17/2023 2:43 PM CDT Other Motor Neuron Disease (HCC) QUANTITATIVE M-PROTEIN STUDY, S Routine 10/17/2023 2:43 PM CDT Other Motor Neuron Disease (HCC) ANTINUCLEAR AB CASCADE, S Routine 10/17/2023 2:43 PM CDT Other Motor Neuron Disease (HCC) COPPER, S Routine 10/17/2023 2:43 PM CDT Other Motor Neuron Disease (HCC) CREATINE KINASE (CK), S Routine 10/17/2023 2:43 PM CDT Other Motor Neuron Disease (HCC) VITAMIN E, S Routine 10/17/2023 2:39 PM CDT Other Motor Neuron Disease (HCC) from Last 3 Months Results * Lyme Ab Modified 2-Tier w/Reflex, Serum (10/17/2023 11:00 PM CDT) Lyme Ab Modified 2-Tier w/Reflex, S Negative Negative 10/18/2023 2:33 PM CDT [facility] Comment: Negative for antibodies to the Borrelia (Borreliella) species causing Lyme disease. ??Negative results may occur in recently infected (<=14 days) patients. If recent infection is suspected, repeat testing on a new sample collected in 7-14 days is recommended. Blood (Blood, Venous) 10/17/2023 11:00 PM CDT 10/17/2023 9:04 PM CDT Tyson Carreon M.D. LAB MICROBIOLOGY - B LOOD ORDERABLES [facility] [address] [place] [address], [facility] ECLR [facility] in [address] [address] * Quantitative M-protein Study (10/17/2023 2:43 PM CDT) Pathologist [facility] Immunoglobulin A (IgA), S 87 61 - 356 mg/dL 10/18/2023 8:16 AM CDT [facility] Immunoglobulin M (IgM), S 187 37 - 286 mg/dL 10/18/2023 8:15 AM CDT [facility] Immunoglobulin G (IgG), S 1220 767 - 1590 mg/dL 10/18/2023 8:15 AM CDT [facility] Therapeutic Antibody Administered? Unspecified 10/18/2023 7:09 AM CDT [facility] Flag, M-protein Isotype Negative Negative 10/19/2023 8:50 AM CDT [facility] QMPTS Interpretation No monoclonal protein detected. 10/19/2023 8:50 AM CDT [facility] Comment: ----ADDITIONAL INFORMATION---- The submitted sample was assayed by five separate immunopurifications for IgG, IgA, IgM, kappa and lambda. ??The result reflects the findings of either no monoclonal protein detected or those monoclonal immunoglobulins that were detected. This test was developed and its performance characteristics determined by [facility] in a manner consistent with CLIA requirements. This test has not been cleared or approved by the U.S. Food and Drug Administration. Blood (Blood, Venous) 10/17/2023 2:43 PM CDT 10/18/2023 6:28 AM CDT Narrative [facility] - 10/19/2023 8:50 AM CDT Specimen Information: Specimen ID: [id number] Specimen Type: Blood Specimen Collection Start Date: 10/17/2023 11:00 PM Specimen Received Date: 10/18/2023 ??6:28 AM Specimen ID: [id number] Specimen Type: Blood Specimen Collection Start Date: 10/17/2023 ??2:43 PM Specimen Received Date: 10/18/2023 ??7:09 AM Tyson Carreon M.D. LAB BLOOD ADD-ON [facility] [address] [place] [address] [facility] [address] [place] [address] [facility] [address] [place] [address] * T4 (Thyroxine), Free, Serum (10/17/2023 2:43 PM CDT) T4 (Thyroxine), Free, S 0.9 0.9 - 1.7 ng/dL 10/17/2023 3:57 PM CDT [facility] Blood 10/17/2023 2:43 PM CDT 10/17/2023 2:49 PM CDT Tyson Carreon M.D. LAB BLOOD ADD-ON [facility] [address] [facility] [place] [address], [facility] in [place] [address] [place] [address] [place] [phone] * Antinuclear Ab [place], S (10/17/2023 2:43 PM CDT) Antinuclear Ab Screen by IFA, S Negative Negative 10/19/2023 8:45 AM CDT [facility] Comment:No titer performed, COURT screen is negative. Blood (Blood, Venous) 10/17/2023 2:43 PM CDT 10/17/2023 9:02 PM CDT Tyson Carreon M.D. LAB BLOOD NON ADD-ON [facility] [address] [place] [address], [facility] ECLR [address] [phone] * (ABNORMAL) Thyroid Function [place] (10/17/2023 2:43 PM CDT) Pathologist [facility] TSH, Sensitive 10.3(H) 0.3 - 4.2 mIU/L 10/17/2023 3:35 PM CDT [facility] Blood (Blood, Venous) 10/17/2023 2:43 PM CDT 10/17/2023 2:49 PM CDT Tyson Carreon M.D. LAB BLOOD ADD-ON Performing Organization Address City/[facility]/ZIP Co de Phone Number [facility] [address] [place] [address], [facility] RDWG [facility] [place] [address] [place] [phone] * Pernicious Anemia [place] (10/17/2023 2:43 PM CDT) Pathologist [facility] Vitamin B12 Assay, S 248 180 - 914 ng/L 10/18/2023 11:55 AM CDT [facility] Comment:B-12 <400; MMA test was performed. Blood (Blood, Venous) 10/17/2023 2:43 PM CDT 10/18/2023 8:35 AM CDT Narrative [facility] - 10/18/2023 11:55 AM CDT Specimen Information: Specimen ID: [id number] Specimen Type: Blood Specimen Collection Start Date: 10/17/2023 ??2:43 PM Specimen Received Date: 10/18/2023 ??8:35 AM Specimen ID: [id number] Specimen Type: Blood Specimen Collection Start Date: 10/17/2023 ??2:43 PM Specimen Received Date: 10/18/2023 ??8:52 AM Tyson Carreon M.D. LAB BLOOD NON ADD-ON [facility] [address] [place] [address] [facility] [address] [place] [address] * Cryopreservation for Molecular Genetic Studies (10/17/2023 2:43 PM CDT) Comment A DNA specimen has been stored for future genomic studies. This specimen has been stored at the request of the ordering physician for anticipated future testing. In some instances, a portion of the specimen may remain available (by consent) for use by the individual and/or family. This is not a DNA banking service. If fci, guaranteed specimen storage is required, DNA banking should be considered. The Genomic Extraction Core extracted DNA. DNA Volume (microliters): ??500 Please review the following table to determine the possible number of tests that can be added for send out testing. DNA (ul) ? Possible Send Outs (~120 ul) <100 ? Recommend Redraw 100 ?1 250 ?2 500 ?4 10/19/2023 1:50 PM CDT DTL Specimen WB Whole Blood 10/19/2023 1:50 PM CDT DTL Released By REBEKA FROST 10/19/2023 1:50 PM CDT DTL Blood (Blood, Peripheral Draw) 10/17/2023 2:43 PM CDT 10/18/2023 8:06 AM CDT Tyson Carreon M.D. LAB GENETIC TESTING Performing Organization Address City/[facility]/ZIP Co de Phone Number [facility] [address] [place] [address], [facility] DTL [address] [place] [address] * (ABNORMAL) Thyroperoxidase (TPO) Antibodies (10/17/2023 2:43 PM CDT) Thyroperoxidase Ab, S 125.9(H) <34.0 IU/mL 10/18/2023 3:45 AM CDT [facility] Blood 10/17/2023 2:43 PM CDT 10/17/2023 9:04 PM CDT Tyson Carreon M.D. LAB BLOOD ADD-ON Performing Organization Address [facility] [place]/[facility] Co de Phone Number [facility] [address] [place] [address], [facility] ECLR [facility] in [address] [address] * Copper (10/17/2023 2:43 PM CDT) Pathologist [facility] Copper, S 115 77 - 206 mcg/dL 10/18/2023 10:42 AM CDT [facility] Comment: ----ADDITIONAL INFORMATION---- This test was developed and its performance characteristics determined by [facility] in a manner consistent with CLIA requirements. This test has not been cleared or approved by the U.S. Food and Drug Administration. Blood (Blood, Venous) 10/17/2023 2:43 PM CDT 10/17/2023 9:48 PM CDT Tyson Carreon M.D. LAB BLOOD NON ADD-ON [facility] [address] [place] [address] [facility] [address] [place] [address] * Phosphorus Inorganic (10/17/2023 2:43 PM CDT) Pathologist [facility] Phosphorus (Inorganic), P 3.0 2.5 - 4.5 mg/dL 10/17/2023 3:17 PM CDT [facility] Blood (Blood, Venous) 10/17/2023 2:43 PM CDT 10/17/2023 2:49 PM CDT Tyson Carreon M.D. LAB BLOOD ADD-ON Performing Organization Address City/[facility] Co de Phone Number [facility] [address] [place] [address], [facility] RDWG [facility] [place] [address] * (ABNORMAL) Parathyroid Hormone (PTH) (10/17/2023 2:43 PM CDT) Parathyroid Hormone (PTH), S 74(H) 15 - 65 pg/mL 10/17/2023 3:27 PM CDT [facility] Comment: Biotin has been identified by the metal sprayer machined parts as a potential interfering substance. Higher concentrations of biotin may be found in multivitamins, hair/nail supplements, and workout supplements. If the result does not match clinical observations, repeat testing after patient refrains from the use of supplements for at least 12 hours. Blood (Blood, Venous) 10/17/2023 2:43 PM CDT 10/17/2023 2:49 PM CDT Tyson Carreon M.D. LAB BLOOD ADD-ON Performing Organization Address [facility] [place]/[facility] Co de Phone Number [facility] [place] [address], [facility] RDWG [facility] [address] [place] [address] * Creatinine with Estimated GFR (10/17/2023 2:43 PM CDT) Creatinine 0.78 0.59 - 1.04 mg/dL 10/17/2023 3:17 PM CDT [facility] Estimated GFR (eGFR) 87 >=60 mL/min/BSA 10/17/2023 3:17 PM CDT [facility] Comment: Estimated GFR calculated using the 2020 CKD_EPI creatinine equation. Blood (Blood, Venous) 10/17/2023 2:43 PM CDT 10/17/2023 2:49 PM CDT Tyson Carreon M.D. LAB BLOOD ADD-ON [facility] [address] [place] [address], [facility] RDWG [facility] [place] [address] [address] * CK (Creatine Kinase) (10/17/2023 2:43 PM CDT) Creatine Kinase, P 163 26 - 192 U/L 10/17/2023 3:17 PM CDT [facility] Blood (Blood, Venous) 10/17/2023 2:43 PM CDT 10/17/2023 2:49 PM CDT Tyson Carreon M.D. LAB BLOOD ADD-ON Performing Organization Address City/[facility]/ZIP Co de Phone Number [facility] [address] [place] [address], [facility] RDWG [facility] [place] [address] [address] * Calcium, Total (10/17/2023 2:43 PM CDT) Calcium, Total, P 9.3 8.6 - 10.0 mg/dL 10/17/2023 3:17 PM CDT [facility] Blood (Blood, Venous) 10/17/2023 2:43 PM CDT 10/17/2023 2:49 PM CDT Tyson Carreon M.D. LAB BLOOD ADD-ON [facility] [address] [place] [address], [facility] [place] [address] * Vitamin E Level (10/17/2023 2:39 PM CDT) A-Tocopherol, Vitamin E 13.6 5.5 - 17.0 mg/L 10/19/2023 8:25 AM CDT [facility] Comment: ----ADDITIONAL INFORMATION---- This test was developed and its performance characteristics determined by [facility] in a manner consistent with CLIA requirements. This test has not been cleared or approved by the U.S. Food and Drug Administration. Blood (Blood, Venous) 10/17/2023 2:39 PM CDT 10/18/2023 11:23 AM CDT Tyson Carreon M.D. LAB BLOOD NON ADD-ON [facility] [address] [place] [address] [facility] [address] [place] [place] [address] from Last 3 Months
--- OUTSIDE RECORDS SUMMARY | 2023-10-19 15:05 | XMS_ITS | Encounter Summary ---
Author Organization [facility] Address [address] [place] [address] Care Team Providers Care Personnel Assistant Name Role Phone Unavailable Primary Care Provider Unavailabl e Reason for Referral * Outpatient (Routine) - Closed Specialty Diagnoses / Procedures Referred By Paolo t Referred To Contact Neurology Lizandro López M.D. [address] [place] [address] [facility] Region Referral ID Status Reason Start Date Expiration Date Visits Re quested Visits Authorized [id number] Closed 10/12/2023 04/12/2025 1 1 Reason for Visit * Reason Onset Date Comments Order Request 10/12/2023 F/u clinical vis it Encounter Details Date Type Department Care Team (Latest Contact Info) Description 10/12/2023 Clinical Communication Department of Neurology in [address] [phone] Lizandro López M.D. [address] [place] [phone] Order Request (F/u clinical visit ) Social History Tobacco Use Types Packs/Day Years Used Date Smoking Tobacco: Never Smokeless Tobacco: Never Alcohol Use Standard Drinks/Week Comments Yes 6 [...] CDT Office Visit Department of Neurology in [address] [phone] Lizandro López M.D. [address] [place] [phone] Discharge Disposition: Home or Self Care 12/01/2023 8:15 PM CDT Appointment Department of Radiology, [place] [address] [place] [phone] Lizandro López M.D. [address] [place] [phone] 01/09/2024 1:00 PM CDT Appointment Department of Pulmonary Medicine in [address] [phone] Lizandro López M.D. [address] [place] [phone] Discharge Disposition: Home or Self Care Scheduled Referrals Name Type Priority Associated Diagnoses Orde r Schedule Neurology office visit (clinic) Outpatient Referral Routine Expected: 10/12/2023, Expires: 01/11/2025 documented as of this encounter Visit Diagnoses Not on filedocumented in this encounter
--- OUTSIDE RECORDS SUMMARY | 2023-10-19 15:05 | XMS_ITS | Encounter Summary ---
Author Organization [facility] Address [address] [place] [address] Care Team Providers Care Wastewater Supervisor Name Role Phone Unavailable Primary Care Provider Unavailabl e Encounter Details Date Type Department Care Team (Latest Contact Info) Description 10/17/2023 2:11 PM CDT - 10/17/2023 11:59 PM CDT Hospital Encounter Department of Laboratory Medicine in [address] [phone] Lizandro López M.D. [address] [place] [phone] Other Motor Neuron Disease (HCC) Discharge Disposition: Home or Self Care Social History Tobacco Use Types Packs/Day Years [...] on file documented as of this encounter Medications at Time of Discharge Medication Sig Dispensed Refills Start Date End Date levothyroxine (SYNTHROID, LEVOTHROID) 50 mcg tablet Take 1 tablet by mouth daily. venlafaxine XR (EFFEXOR-XR) 37.5 mg 24 hr capsule Take 1 capsule by mouth every other day. documented as of this encounter Plan of Treatment Upcoming Encounters Date Type Department Care Team ( Contact Info) Description 10/25/2023 3:30 PM CDT Office Visit Department of Neurology in [address] [phone] Lizandro López M.D. [address] [place] [phone] Discharge Disposition: Home or Self Care 12/01/2023 8:15 PM CDT Appointment Department of Radiology, [facility] in [place], [place] [address] [place] [address] Lizandro López M.D. [address] [place] [phone] 01/09/2024 1:00 PM CDT Appointment Department of Pulmonary Medicine in [address] [phone] Lizandro López M.D. [address] [place] [phone] Discharge Disposition: Home or Self Care Pending Results Name Type Priority Associated Diagnoses Date /Time Neurofilament Light Chain (NfL) Lab Routine Other Motor Neuron Disease (HCC) 10/17/2023 2:49 PM CDT Myelopathy, Autoimmune/Paraneoplastic Evaluation Lab Routine Other Motor Neuron Disease (HCC) 10/17/2023 2:46 PM CDT Hexosaminidase A and Total Hexosaminidase, Leukocytes Lab Routine Other Motor Neuron Disease (HCC) 10/17/2023 2:43 PM CDT Ganglioside Antibody Panel Lab Routine Other Motor Neuron Disease (HCC) 10/17/2023 2:46 PM CDT Methylmalonic Acid (MMA), Quantitative, Serum Lab Routine 10/17/2023 2 :43 PM CDT Scheduled Orders Name Type Priority Associated Diagnoses Orde r Schedule Neurofilament Light Chain (NfL) Lab Routine Other Motor Neuron Disease (HCC) Once for 1 Occurrences starting 10/17/2023 until 10/17/2023 Hexosaminidase A and Total Hexosaminidase, Leukocytes Lab Routine Other Motor Neuron Disease (HCC) Once for 1 Occurrences starting 10/17/2023 until 10/17/2023 Ganglioside Antibody Panel Lab Routine Other Motor Neuron Disease (HCC) Once for 1 Occurrences starting 10/17/2023 until 10/17/2023 Methylmalonic Acid (MMA), Quantitative, Serum Lab Routine Routine lab collection (next collection) for 1 Occurrences starting 10/17/2023 until 10/17/2023 documented as of this encounter Procedures Procedure Name Priority Date/Time Associated Diagnosis Comments LYME AB MODIFIED 2-TIER W/REFLEX, S Routine 10/17/2023 11:00 PM CDT Other Motor Neuron Disease (HCC) MYELOPATHY, AUTOIMM/PARANEO, SERUM Routine 10/17/2023 2:46 PM CDT Other Motor Neuron Disease (HCC) QUANTITATIVE M-PROTEIN STUDY, S Routine 10/17/2023 2:43 PM CDT Other Motor Neuron Disease (HCC) MD T4 FREE Routine 10/17/2023 2:43 PM CDT ANTINUCLEAR AB CASCADE, S Routine 10/17/2023 2:43 PM CDT Other Motor Neuron Disease (HCC) THYROID FUNCTION CASCADE, S Routine 10/17/2023 2:43 PM CDT Other Motor Neuron Disease (HCC) PERNICIOUS ANEMIA CASCADE, S Routine 10/17/2023 2:43 PM CDT Other Motor Neuron Disease (HCC) CRYOPRESERVATION FOR MOLEC STUDIES Routine 10/17/2023 2:43 PM CDT Other Motor Neuron Disease (HCC) THYROPEROXIDASE (TPO) ABS, S Routine 10/17/2023 2:43 PM CDT COPPER, S Routine 10/17/2023 2:43 PM CDT Other Motor Neuron Disease (HCC) PHOSPHORUS (INORGANIC), S Routine 10/17/2023 2:43 PM CDT Other Motor Neuron Disease (HCC) PARATHYROID HORMONE (PTH), S Routine 10/17/2023 2:43 PM CDT Other Motor Neuron Disease (HCC) CREATININE WITH EGFR, S/P Routine 10/17/2023 2:43 PM CDT Other Motor Neuron Disease (HCC) CREATINE KINASE (CK), S Routine 10/17/19 2:43 PM CDT Other Motor Neuron Disease (HCC) CALCIUM, TOT, S/P Routine 10/17/2023 2:4 3 PM CDT Other Motor Neuron Disease (HCC) VITAMIN E, S Routine 10/17/2023 2:39 PM CDT Other Motor Neuron Disease (HCC) documented in this encounter Results * Lyme Ab Modified 2-Tier w/Reflex, [...] 11:00 PM CDT 10/17/2023 9:04 PM CDT Lizandro López M.D. LAB MICROBIOLOGY - B LOOD ORDERABLES [facility] [address] [place] [address], [facility] ECLR [facility] [place] in [address] [address] * T4 (Thyroxine), Free, Serum (10/17/2023 2:43 PM CDT) T4 (Thyroxine), Free, S 0.9 0.9 - 1.7 ng/dL 10/17/2023 3:57 PM CDT [facility] Blood 10/17/2023 2:43 PM CDT 10/17/2023 2:49 PM CDT Lizandro López M.D. LAB BLOOD ADD-ON Performing Organization Address City/[facility]/ZIP Co de Phone Number [facility] [address] [place] [address], [facility] RDWG [facility] [place] in [place] [address] [place] [address] * (ABNORMAL) Thyroperoxidase (TPO) Antibodies (10/17/2023 2:43 PM CDT) Thyroperoxidase Ab, S 125.9(H) <34.0 IU/mL 10/18/2023 3:45 AM CDT ECL[facility] Blood 10/17/2023 2:43 PM CDT 10/17/2023 9:04 PM CDT Lizandro López M.D. LAB BLOOD ADD-ON Performing Organization Address [facility] Co de Phone Number [facility] [address] [place] [address], [facility] ECLR [facility] [place] in [address] [address] * Cryopreservation for Molecular Genetic Studies (10/17/2023 [...] is not a DNA banking service. If long term care social worker, guaranteed specimen storage is required, DNA banking [...] 2:43 PM CDT 10/18/2023 8:06 AM CDT Lizandro López M.D. LAB GENETIC TESTING Performing Organization Address [facility] Co de Phone Number [facility] [address] [place] [address], [facility] DTL [address] [place] [address] * (ABNORMAL) Thyroid Function Dugger (10/17/2023 2:43 PM CDT) Pathologist [facility] TSH, Sensitive 10.3(H) 0.3 - 4.2 mIU/L 10/17/2023 3:35 PM CDT [facility] Blood (Blood, Venous) 10/17/2023 2:43 PM CDT 10/17/2023 2:49 PM CDT Lizandro López M.D. LAB BLOOD ADD-ON Performing Organization Address City/[facility]/ZIP Co de Phone Number [facility] [address] [place] [address], [facility] RDWG [facility] in [place] [address] [place] [address] * Pernicious Anemia Dugger (10/17/2023 2:43 PM CDT) Vitamin B12 Assay, S 248 180 - 914 ng/L 10/18/2023 11:55 AM CDT [facility] Comment:B-12 <400; MMA test was performed. Blood (Blood, Venous) 10/17/2023 2:43 PM CDT 10/18/2023 8:35 AM CDT Narrative [facility] - 10/18/2023 11:55 AM CDT Specimen Information: Specimen ID: [id number] Specimen Type: Blood Specimen Collection Start Date: 10/17/2023 ??2:43 PM Specimen Received Date: 10/18/2023 ??8:35 AM Specimen ID: [id number] Specimen Type: Blood Specimen Collection Start Date: 10/17/2023 ??2:43 PM Specimen Received Date: 10/18/2023 ??8:52 AM Lizandro López M.D. LAB BLOOD NON ADD-ON [facility] [address] [place] [address] [facility] [address] [place] [address] * Creatinine with Estimated GFR (10/17/2023 2:43 PM CDT) Creatinine 0.78 0.59 - 1.04 mg/dL 10/17/2023 3:17 PM CDT [facility] Estimated GFR (eGFR) 87 >=60 mL/min/BSA 10/17/2023 3:17 PM CDT [facility] Comment: Estimated GFR calculated using the 2020 CKD_EPI creatinine equation. Blood (Blood, Venous) 10/17/2023 2:43 PM CDT 10/17/2023 2:49 PM CDT Lizandro López M.D. LAB BLOOD ADD-ON [facility] [address] [address], [place] RDWG [facility] [place] [facility] [place] [address] [address] * Phosphorus Inorganic (10/17/2023 2:43 PM CDT) Phosphorus (Inorganic), P 3.0 2.5 - 4.5 mg/dL 10/17/2023 3:17 PM CDT [facility] Blood (Blood, Venous) 10/17/2023 2:43 PM CDT 10/17/2023 2:49 PM CDT Lizandro López M.D. LAB BLOOD ADD-ON Performing Organization Address City/[facility] Co de Phone Number [facility] [address] [place] [address], [place] [address], [facility] in [address] [address] * Calcium, Total (10/17/2023 2:43 PM CDT) Calcium, Total, P 9.3 8.6 - 10.0 mg/dL 10/17/2023 3:17 PM CDT [facility] Blood (Blood, Venous) 10/17/2023 2:43 PM CDT 10/17/2023 2:49 PM CDT Lizandro López M.D. LAB BLOOD ADD-ON Performing Organization Address [facility] Co de Phone Number [facility] [address] [place] [address], [facility] in [address] [address] * (ABNORMAL) Parathyroid Hormone (PTH) (10/17/2023 2:43 PM CDT) Parathyroid Hormone (PTH), S 74(H) 15 - 65 pg/mL 10/17/2023 3:27 PM CDT RDWG Comment: Biotin has been identified by the rn cardiac cath as a potential interfering substance. Higher concentrations of biotin may be found in multivitamins, hair/nail supplements, and workout supplements. If the result does not match clinical observations, repeat testing after patient refrains from the use of supplements for at least 12 hours. Blood (Blood, Venous) 10/17/2023 2:43 PM CDT 10/17/2023 2:49 PM CDT Lizandro López M.D. LAB BLOOD ADD-ON [facility] [address] [place] [address], [facility] RDWG [facility] [place] [facility] [place] [address] [place] [address] * Quantitative M-protein Study (10/17/2023 2:43 PM CDT) Immunoglobulin A (IgA), S 87 61 - [...] developed and its performance characteristics determined by [facility] in a manner consistent with CLIA requirements. This test has not been cleared or approved by the U.S. Food and Drug Administration. Blood (Blood, Venous) 10/17/2023 2:43 PM CDT 10/18/2023 6:28 AM CDT Narrative [facility] - 10/19/2023 8:50 AM CDT Specimen Information: Specimen ID: [id number] Specimen Type: Blood Specimen Collection Start Date: 10/17/2023 11:00 PM Specimen Received Date: 10/18/2023 ??6:28 AM Specimen ID: [id number] Specimen Type: Blood Specimen Collection Start Date: 10/17/2023 ??2:43 PM Specimen Received Date: 10/18/2023 ??7:09 AM Lizandro López M.D. LAB BLOOD ADD-ON Performing Organization Address City/[facility]/ZIP Co de Phone Number [facility] [address] [place] [address] [facility] [address] [place] [address] [facility] [address] [place] [address] * Antinuclear Ab Dugger, S (10/17/2023 2:43 PM CDT) Antinuclear Ab Screen by IFA, S Negative Negative 10/19/2023 8:45 AM CDT ECLR Comment:No titer performed, COURT screen is negative. Blood (Blood, Venous) 10/17/2023 2:43 PM CDT 10/17/2023 9:02 PM CDT Lizandro López M.D. LAB BLOOD NON ADD-ON Performing Organization Address City/[facility] Co de Phone Number [facility] [address] [place] [address], [facility] ECLR [address] [place] [phone] * Copper (10/17/2023 2:43 PM CDT) Copper, S 115 77 - 206 mcg/dL 10/18/2023 10:42 AM CDT [facility] Comment: ----ADDITIONAL INFORMATION---- This test was developed and its performance characteristics determined by [facility] in a manner consistent with CLIA requirements. This test has not been cleared or approved by the U.S. Food and Drug Administration. Blood (Blood, Venous) 10/17/2023 2:43 PM CDT 10/17/2023 9:48 PM CDT Lizandro López M.D. LAB BLOOD NON ADD-ON [facility] [address] [place] [address] [facility] [address] [place] [address] * CK (Creatine Kinase) (10/17/2023 2:43 PM CDT) Creatine Kinase, P 163 26 - 192 U/L 10/17/2023 3:17 PM CDT [facility] Blood (Blood, Venous) 10/17/2023 2:43 PM CDT 10/17/2023 2:49 PM CDT Lizandro López M.D. LAB BLOOD ADD-ON Performing Organization Address [facility] Co de Phone Number [facility] [address] [place] [address], [facility] RDWG [facility] [place] [facility] [place] [address] [place] [phone] * Vitamin E Level (10/17/2023 2:39 PM CDT) [facility] A-Tocopherol, Vitamin E 13.6 5.5 - 17.0 mg/L 10/19/2023 8:25 AM CDT [facility] Comment: ----ADDITIONAL INFORMATION---- This test was developed and its performance characteristics determined by [facility] in a manner consistent with CLIA requirements. This test has not been cleared or approved by the U.S. Food and Drug Administration. Blood (Blood, Venous) 10/17/2023 2:39 PM CDT 10/18/2023 11:23 AM CDT Lizandro López M.D. LAB BLOOD NON ADD-ON Performing Organization Address City/[facility]/ZIP Co de Phone Number [facility] [address] [place] [address] [facility] [address] [place] [address] documented in this encounter Visit Diagnoses Diagnosis Other Motor Neuron Disease (HCC) documented in this encounter
--- OUTSIDE RECORDS SUMMARY | 2023-10-19 15:05 | XMS_ITS | Referral Summary ---
Author Organization [facility] Address [address] [place] [address] Care Team Providers Care Embroidery Specialist Name Role Phone Unavailable Primary Care Provider Unavailabl e Source Comments Patient records contain information from all sites at [facility]. For routine questions regarding patient records, call [phone] during business hours, M-F 8:00 AM - 5:00 PM Central Time. Record requests for emergency care only can be directed to [phone] at any time.[facility] Encounters Date Type Department Care Team Description 10/19/2023 7:11 AM CDT Hospital Encounter Department of Neurology in [place], [place] [address] [place] [address] Tyson Carreon M.D. Other Motor Neuron Disease (HCC) 10/18/2023 Clinical Communication Department of Neurology in [address] [phone] Tyson Carreon M.D. Follow-up Orders (MRI in [place] ) 10/17/2023 2:11 PM CDT - 10/17/2023 11:59 PM CDT Hospital Encounter Department of Laboratory Medicine in [address] [phone] Tyson Carreon M.D. Other Motor Neuron Disease (HCC) Discharge Disposition: Home or Self Care 10/17/2023 1:00 PM CDT Office Visit Department of Neurology in [address] [phone] Tyson Carreon M.D. Other Motor Neuron Disease (HCC) (Primary Dx); Anterior Horn Cell Disease (HCC) Discharge Disposition: Home or Self Care 10/12/2023 Clinical Communication Department of Neurology in [place], [place] [address] [place] [address] [place] [phone] Tyson Carreon M.D. Order Request (F/u clinical visit ) from Last 3 Months Allergies Active Allergy Reactions Criticality Noted Date [...] CDT Office Visit Department of Neurology in [address] [phone] Tyson Carreon M.D. [address] [place] [phone] Discharge Disposition: Home or Self Care 12/01/2023 8:15 PM CDT Appointment Department of Radiology, [place], [place] [address] [place] [phone] Tyson Carreon M.D. [address] [place] [phone] 01/09/2024 1:00 PM CDT Appointment Department of Pulmonary Medicine in [address] [phone] Tyson Carreon M.D. [address] [place] [phone] Discharge Disposition: Home or Self Care Procedures Procedure Name Priority Date/Time Associated Diagnosis Comments EMG Routine 10/19/2023 7:11 AM CDT Other Motor Neuron Disease (HCC) Procedure Note - Kylie Alcocer M.D. - 10/19/2023 7:11 AM CDTThis note is in progress. 19-Oct-2023 Electromyography Final Report Study Number: 1 EMG Sock Folder: Kylie Alcocer 127 or [phone] Referred by: TYSON CARREON (127 or [phone]) Referred for: Query bulbar onset ALS Referral [...] and cervical myotomes. Alberto Alcocer (127 or [phone]) NERVE CONDUCTIONS Record Rep Normal Normal Distal [...] PM CDT Other Motor Neuron Disease (HCC) OR T4 FREE Routine 10/17/2023 2:43 PM CDT [...] M.D. LAB MICROBIOLOGY - B LOOD ORDERABLES [facility] [address] [place] [id number], [facility] ECLR [facility] in [address] [address] * Quantitative M-protein Study (10/17/2023 2:43 PM CDT) Immunoglobulin A (IgA), S 87 61 - 356 mg/dL 10/18/2023 8:16 AM CDT [facility] Immunoglobulin M (IgM), S 187 37 - 286 mg/dL 10/18/2023 8:15 AM CDT [facility] Immunoglobulin G (IgG), S 1220 767 - 1590 mg/dL 10/18/2023 8:15 AM CDT [facility] Therapeutic Antibody Administered? Unspecified 10/18/2023 7:09 AM CDT [facility] Flag, M-protein Isotype Negative Negative 10/19/2023 8:50 AM CDT [facility] QMPTS Interpretation No monoclonal protein detected. 10/19/2023 8:50 AM CDT [facility] Comment: ----ADDITIONAL INFORMATION---- The submitted sample was assayed by five separate immunopurifications for IgG, IgA, IgM, kappa and lambda. ??The result reflects the findings of either no monoclonal protein detected or those monoclonal immunoglobulins that were detected. This test was developed and its performance characteristics determined by [facility] in a manner consistent with CLIA requirements. This test has not been cleared or approved by the U.S. Food and Drug Administration. Blood (Blood, Venous) 10/17/2023 2:43 PM CDT 10/18/2023 6:28 AM CDT [facility] - 10/19/2023 8:50 AM CDT Specimen Information: Specimen ID: [id number] Specimen Type: Blood Specimen Collection Start Date: 10/17/2023 11:00 PM Specimen Received Date: 10/18/2023 ??6:28 AM Specimen ID: [id number] Specimen Type: Blood Specimen Collection Start Date: 10/17/2023 ??2:43 PM Specimen Received Date: 10/18/2023 ??7:09 AM Tyson Carreon M.D. LAB BLOOD ADD-ON [facility] [address] [place] [address] [facility] [address] [place] [address] [facility] [address] [facility] [place] [address] * T4 (Thyroxine), Free, Serum (10/17/2023 2:43 PM CDT) T4 (Thyroxine), Free, S 0.9 0.9 - 1.7 ng/dL 10/17/2023 3:57 PM CDT [facility] Blood 10/17/2023 2:43 PM CDT 10/17/2023 2:49 PM CDT Tyson Carreon M.D. LAB BLOOD ADD-ON [facility] [address] [place] [address], [facility] in [place] [address] [place] [phone] * Antinuclear Ab Grand, S (10/17/2023 2:43 PM CDT) Antinuclear Ab Screen by IFA, S Negative Negative 10/19/2023 8:45 AM CDT [facility] Comment:No titer performed, COURT screen is negative. Blood (Blood, Venous) 10/17/2023 2:43 PM CDT 10/17/2023 9:02 PM CDT Tyson Carreon M.D. LAB BLOOD NON ADD-ON Performing Organization Address [facility]/ZIP Co de Phone Number [facility] [address] [place] [phone], [facility] ECLR [address] [place] [phone] * (ABNORMAL) Thyroid Function Grand (10/17/2023 2:43 PM CDT) TSH, Sensitive 10.3(H) 0.3 - 4.2 mIU/L 10/17/2023 3:35 PM CDT [facility] Blood (Blood, Venous) 10/17/2023 2:43 PM CDT 10/17/2023 2:49 PM CDT Tyson Carreon M.D. LAB BLOOD ADD-ON [facility] [address] [place] [address], [facility] RDWG [facility] in [place] [address] [place] [address] * Pernicious Anemia Grand (10/17/2023 2:43 PM CDT) Pathologist [facility] Vitamin B12 Assay, S 248 180 - 914 ng/L 10/18/2023 11:55 AM CDT [facility] Comment:B-12 <400; MMA test was performed. Blood (Blood, Venous) 10/17/2023 2:43 PM CDT 10/18/2023 8:35 AM CDT Narrative [facility] - 10/18/2023 11:55 AM CDT Specimen Information: Specimen ID: [id number] Specimen Type: Blood Specimen Collection Start Date: 10/17/2023 ??2:43 PM Specimen Received Date: 10/18/2023 ??8:35 AM Specimen ID: [id number] Specimen Type: Blood Specimen Collection Start Date: 10/17/2023 ??2:43 PM Specimen Received Date: 10/18/2023 ??8:52 AM Tyson Carreon M.D. LAB BLOOD NON ADD-ON [facility] [address] [place] [address] [facility] [address] [place] [address] * Cryopreservation for Molecular Genetic Studies (10/17/2023 2:43 PM CDT) Pathologist [facility] Comment A DNA specimen has been stored for future genomic studies. This specimen has been stored at the request of the ordering physician for anticipated future testing. In some instances, a portion of the specimen may remain available (by consent) for use by the individual and/or family. This is not a DNA banking service. If [facility], guaranteed specimen storage is required, DNA banking [...] M.D. LAB GENETIC TESTING Performing Organization Address [facility] Co de Phone Number [facility] [address] [place] [address], [facility] DTL [address] [facility] [address] [place] [address] * (ABNORMAL) Thyroperoxidase (TPO) Antibodies (10/17/2023 2:43 PM CDT) Thyroperoxidase Ab, S 125.9(H) <34.0 IU/mL 10/18/2023 3:45 AM CDT [facility] Blood 10/17/2023 2:43 PM CDT 10/17/2023 9:04 PM CDT Tyson Carreon M.D. LAB BLOOD ADD-ON [facility] [address] [place] [address], [facility] ECLR [facility] in [address] [address] * Copper (10/17/2023 2:43 PM CDT) Copper, S 115 77 - 206 mcg/dL 10/18/2023 10:42 AM CDT [facility] Comment: ----ADDITIONAL INFORMATION---- This test was developed and its performance characteristics determined by [facility] in a manner consistent with CLIA requirements. This test has not been cleared or approved by the U.S. Food and Drug Administration. Blood (Blood, Venous) 10/17/2023 2:43 PM CDT 10/17/2023 9:48 PM CDT Tyson Carreon M.D. LAB BLOOD NON ADD-ON Performing Organization Address City/[facility]/ZIP Co de Phone Number [facility] [address] [place] [address] [facility] [address] [place] [address] * Phosphorus Inorganic (10/17/2023 2:43 PM CDT) Phosphorus (Inorganic), P 3.0 2.5 - 4.5 mg/dL 10/17/2023 3:17 PM CDT [facility] Blood (Blood, Venous) 10/17/2023 2:43 PM CDT 10/17/2023 2:49 PM CDT Tyson Carreon M.D. LAB BLOOD ADD-ON Performing Organization Address [facility] Co de Phone Number [facility] [address] [place] [phone], [facility] RDWG [facility] in [place] [address] [place] [phone] * (ABNORMAL) Parathyroid Hormone (PTH) (10/17/2023 2:43 PM CDT) Parathyroid Hormone (PTH), S 74(H) 15 - 65 pg/mL 10/17/2023 3:27 PM CDT [facility] Comment: Biotin has been identified by the fish cutter as a potential interfering substance. Higher concentrations of biotin may be found in multivitamins, hair/nail supplements, and workout supplements. If the result does not match clinical observations, repeat testing after patient refrains from the use of supplements for at least 12 hours. Blood (Blood, Venous) 10/17/2023 2:43 PM CDT 10/17/2023 2:49 PM CDT Tyson Carreon M.D. LAB BLOOD ADD-ON [facility] [address] [address], [facility] R[facility] [place] [address] * Creatinine with Estimated GFR (10/17/2023 2:43 PM CDT) Creatinine 0.78 0.59 - 1.04 mg/dL 10/17/2023 3:17 PM CDT [facility] Estimated GFR (eGFR) 87 >=60 mL/min/BSA 10/17/2023 3:17 PM CDT [facility] Comment: Estimated GFR calculated using the 2020 CKD_EPI creatinine equation. Blood (Blood, Venous) 10/17/2023 2:43 PM CDT 10/17/2023 2:49 PM CDT Tyson Carreon M.D. LAB BLOOD ADD-ON Performing Organization Address City/[facility]/ZIP Co de Phone Number [facility] [place] [address], [facility] RDWG [facility] [place] [address] * CK (Creatine Kinase) (10/17/2023 2:43 PM CDT) Creatine Kinase, P 163 26 - 192 U/L 10/17/2023 3:17 PM CDT [facility] Blood (Blood, Venous) 10/17/2023 2:43 PM CDT 10/17/2023 2:49 PM CDT Tyson Carreon M.D. LAB BLOOD ADD-ON [facility] [address] [address], [facility] in [address] [phone] * Calcium, Total (10/17/2023 2:43 PM CDT) Calcium, Total, P 9.3 8.6 - 10.0 mg/dL 10/17/2023 3:17 PM CDT [facility] Blood (Blood, Venous) 10/17/2023 2:43 PM CDT 10/17/2023 2:49 PM CDT Tyson Carreon M.D. LAB BLOOD ADD-ON [facility] [address] [place] [address], [facility] R[facility] in [address] [phone] * Vitamin E Level (10/17/2023 2:39 PM CDT) [facility] A-Tocopherol, Vitamin E 13.6 5.5 - 17.0 mg/L 10/19/2023 8:25 AM CDT [facility] Comment: ----ADDITIONAL INFORMATION---- This test was developed and its performance characteristics determined by [facility] in a manner consistent with CLIA requirements. This test has not been cleared or approved by the U.S. Food and Drug Administration. Blood (Blood, Venous) 10/17/2023 2:39 PM CDT 10/18/2023 11:23 AM CDT Tyson Carreon M.D. LAB BLOOD NON ADD-ON [facility] [address] [place] [address] [facility] [address] [place] [phone] from Last 3 Months
--- OUTSIDE RECORDS SUMMARY | 2023-10-19 15:05 | XMS_ITS | Encounter Summary ---
Author Organization [facility] Address [address] [place] [address] Care Team Providers Care Veneer Stacker Name Role Phone Unavailable Primary Care Provider Unavailabl e Reason for Visit * Reason Onset Date Comments Follow-up Orders 10/18/2023 MRI in [facility] Encounter Details Date Type Department Care Team (Latest Contact Info) Description 10/18/2023 Clinical Communication Department of Neurology in [address] [phone] Lizandro López M.D. 200 [place] [phone] Follow-up Orders (MRI in [place] ) Social History Tobacco Use Types Packs/Day [...] CDT Office Visit Department of Neurology in [address] [phone] Lizandro López M.D. 200 [place] [phone] Discharge Disposition: Home or Self Care 12/01/2023 8:15 PM CDT Appointment Department of Radiology, [facility] in [place], [place] [address] [place] [address] Lizandro López M.D. [address] [place] [address] 01/09/2024 1:00 PM CDT Appointment Department of Pulmonary Medicine in [address] [phone] Lizandro López M.D. [address] [place] [phone] Discharge Disposition: Home or Self Care documented as of this encounter Visit Diagnoses Not on filedocumented in this encounter
--- OUTSIDE RECORDS SUMMARY | 2023-10-19 15:05 | XMS_ITS | Encounter Summary ---
Author Organization [facility] Address [address] [place] [address] Care Team Providers Care Brand Strategy Manager Name Role Phone Unavailable Primary Care Provider Unavailabl e Reason for Referral * MRI/CAT/PET Scan (Routine) - Pending Review Specialty Diagnoses / Procedures Referred By Paolo llanos Referred To Contact Radiology Diagnoses Other Motor Neuron Disease (HCC) Procedures MR Cervical Spine without and with IV Contrast Tyson Carreon M.D. 200 [place] [address] [facility] Referral ID Status Reason Start Date Expiration Date V isits Requested Visits Authorized [id number] Pending Review 10/18/2023 10/17/2024 1 1 * MRI/CAT/PET Scan (Routine) - Pending Review Specialty Diagnoses / Procedures Referred By Paolo llanos Referred To Contact Radiology Diagnoses Anterior Horn Cell Disease (HCC) Procedures MR Brain without and with IV Contrast Tyson Carreon M.D. [address] [place] [phone] [facility] Referral ID Status Reason Start Date Expiration Date V isits Requested Visits Authorized [id number] Pending Review 10/18/2023 10/17/2024 1 1 * Outpatient (Routine) - Authorized Specialty Diagnoses / Procedures Referred By Contac t Referred To Contact Neurology Tyson Carreon M.D. [address] [place] [phone] [facility] Referral ID Status Reason Start Date Expiration Date V isits Requested Visits Authorized [id number] Authorized 10/17/2023 04/17/2025 1 1 * Speech Pathology (Routine) - Authorized Specialty Diagnoses / Procedures Referred By Contac t Referred To Contact Diagnoses Other Motor Neuron Disease (HCC) Procedures SHOPPING CENTRE MANAGER Speech language evaluate and treat Tyson [place] [address] [facility] Referral ID Status Reason Start Date Expiration Date V isits Requested Visits Authorized [id number] Authorized 10/17/2023 10/16/2024 1 1 * Outpatient (Routine) - Closed Specialty Diagnoses / Procedures Referred By Contac t Referred To Contact Diagnoses Other Motor Neuron Disease (HCC) Procedures EMG [place] [address] [facility] Referral ID Status Reason Start Date Expiration Date Visits Re quested Visits Authorized [id number] Closed 10/17/2023 10/16/2024 1 1 Reason for Visit * Reason Comments Dysphagia * Outpatient (Routine) - Closed Specialty Diagnoses / Procedures Referred By Contac t Referred To Contact Neurology Tyson Carreon M.D. [address] [place] [phone] [facility] Referral ID Status Reason Start Date Expiration Date Visits Re quested Visits Authorized [id number] Closed 10/12/2023 04/12/2025 1 1 Encounter Details Date Type Department Care Team ([facility] st Contact Info) Description 10/17/2023 1:00 PM CDT Office Visit Department of Neurology in [place], [place] [address] [place] [address] Tyson Carreon M.D. [address] [place] [address] Other Motor Neuron Disease (HCC) (Primary Dx); Anterior Horn Cell Disease (HCC) Discharge Disposition: Home or Self Care Social History Tobacco Use Types Packs/Day Years Used Date Smoking Tobacco: Never Smokeless Tobacco: Never Alcohol Use Standard Drinks/Week Comments Yes 5 (1 standard drink = 0.6 oz pur e alcohol) Dental Answer Date Recorded Dental: Regular Dentist Unknown 01/13/20 23 Sex and Gender Information Value Date Recorded Sex Assigned at Not on file Gender Identity Not on file Sexual Orientation Not on file documented as of this encounter Last Filed Vital Signs Vital Sign Reading Time Taken Comments Blood Pressure 118/83 10/17/2023 1:02 PM CDT Pulse 77 10/17/2023 1:02 PM CDT Temperature 36.7 ??C (98.1 ??F) 10/17/2023 1:02 PM CD T Respiratory Rate - - Oxygen Saturation 98% 10/17/2023 1:02 PM CDT Inhaled Oxygen Concentration - - Weight 61.3 kg (135 lb 2.3 oz) 10/17/2023 1:02 P M CDT Height 168.1 cm (5' 6.18) 10/17/2023 1:02 PM CD T Body Mass Index 21.69 10/17/2023 1:02 PM CDT documented in this encounter Consult Notes * Tyson Carreon M.D. - 10/17/2023 1:00 PM CDT SUBJECTIVE CHIEF COMPLAINT: progressive dysarthria HISTORY OF PRESENT ILLNESS Magaly Hinojosa is a very pleasant 58 y.o. female previously healthy who returns today for follow-up. I previously saw Magaly in January 2023 after she was found to have bilateral vocal cord adduction weakness on ENT examination when she was referred for evaluation for potential bulbar-onset ALS. Please see that note for additional details. Her examination was quite reassuring at that time. Her symptoms were limited to dysphagia and dysphonia. She had a normal swallowing study around that time. In the last 9 months since then, she has had continued progression of a now more evident dysarthriawhich is constant however worse in the assembly member and in the evenings as well. She has had further worsening of her dysphagia which previously was only involving liquids but now she is having moredifficulty manipulating solid food in her mouth. She does have now more dyspnea present when she has been exerting herself. She is unable to roll her tongue now which she previously was able to do. She has not noticed any focal weakness in the upper lower limbs in his not noticed any fasciculationsof the muscle. She has not lost any muscle bulk in the arms and legs. She has had 8 lb unintentional weight loss over the last 3 months. Although she has not noticed any focal weakness she does feel more diffusely fatigued. I have directly reviewed imaging studies for this visit. The following portions of the patient's history were reviewed and updated as appropriate: allergies, current medications, family history, medical history, social history, surgical history and problemlist. OBJECTIVE I have reviewed vital signs as recorded in the EPIC record. Neurologic exam: Neurology Scorecard Lower limb assessment Gait: Normal Associated conditions Speech/Language: Spastic and Flaccid (moderate spastic dysarthria with possible superimposed flaccid component) Cognition: Normal Tremor: Absent Scoring, muscle weakness (* NIS) The Neuropathy Impairment Scoring System (NIS) strength: 0=normal; 1=25% weak (MRC equivalent= 5-);2=50% weak (MRC equivalent 4+); 3=75% weak (MRC equivalent 4-); 3.25%=movement against gravity (MRCequivalent 3); 3.5=movement, gravity eliminated (MRC equivalent 2); 3.75; flicker of movement (MRC equivalent 1) 4=complete paralysis (MRC equivalent 0). Right Cranial Left Strength Strength 0 * 3rd nerve 0 0 4th nerve 0 0 * 6th nerve 0 * Facial weakness Temporal-Masseter 0 Forehead 0 0 Orbicularis Oculi 0 0 Orbicularis Johana 0 * Palate weakness Sternocleidomastoid Trapezius -1 * Tongue weakness -1 Muscle Size/Fasciculations Other: tongue fasciculations present Right Cervical Left Strength Strength 0 * Neck flexion 0 0 Neck extension 0 Infraspinatus Supraspinatus Pectoralis 0 * Deltoid 0 0 * Elbow flexion 0 * Brachioradialis 0 * Elbow extension 0 0 * Wrist extension 0 * Wrist flexion Supinator Pronator 0 Finger extension 0 * Finger flexion 0 * Thumb abduction 0 Thumb flexion 0 * Finger spread 0 0 Hypothenar 0 Abdominal muscles * Respiratory Muscle Size/Fasciculations Other: normal muscle bulk, no fasiculations Right Lumbosacral Left Strength Strength 0 * Hip flexion 0 * Hip extension Hip internal rotation Hip adduction Hip abduction 0 * Knee extension 0 0 * Knee flexion 0 0 * Ankle dorsiflexors 0 * Ankle plantar flexors 0 * Toe extensors 0 * Toe flexors 0 Extensor hallicus 0 0 Ankle evertors 0 0 Ankle invertors 0 Muscle Size/Fasciculations Other: normal muscle bulk, no fasiculations Scoring, reflexes (* NIS) NIS (Normal= 0 or above 0; Reduced= -1 to -3; Absent=-4) Right Reflexes Left +2 * Biceps brachii +2 +2 * Brachioradialis +2 +2 * Triceps brachii +2 +2 Megha 0 +3 * Quadriceps femoris +3 +2 * Gastroc. soleus +2 +1 Clonus +1 0 Plantar response 0 Other comments: Strongly positive jaw jerk present, absent glabellar tap sign. Bilateral crossed adduciton (R > L), significantly increased tone/spasticity in bilateral lower limbs SUMMED SCORES (0 is normal) Strength (Range) Reflex (Range) Sensation (Range) Total Score (Range) Total Scores 2 (0-376) 26 (0-64) 0 (0-96) 28 (0-536) ASSESSMENT / PLAN #1 Progressive dysarthria, dysphagia, and exertional dyspnea in association with new onset mild bulbar weakness and progressive upper motor neuron signs and tongue fasciculations #2 Impaired bilateral vocal cord adduction #3 Unintentional weight loss Unfortunately, there has been quite significant change in her neurologic examination since I last saw her about 9 months ago. At that time, I did not appreciate any significant dysarthria although she did have hoarseness of the voice in association with a recent upper respiratory infection but again no definite dysarthria and I did not appreciate any definite tongue fasciculations. She had impaired vocal cord adduction noted on ENT exam otherwise there was no definite clinical evidence of a neurogenic process involving motor neurons. However, in the 9 months since then, she has now developed a definite dysarthria which to my ear sounds mixed but predominantly spastic with perhaps some flaccid features as well and I do now appreciate occasional tongue fasciculations and she has mild tongueweakness. This is also in addition to diffusely pathologically increased reflexes which were not present on previous examination. Clinically she is had progression in her dysphagia and has now developed more clear dysarthria as well as exertional dyspnea. We discussed these new findings in detail and how the clinical changes quite alarming and concerning. We discussed potential differential diagnoses. Clinical suspicion for a bulbar onset motor neuron disease has now unfortunately increased, but we need to evaluate this further and exclude alternative pathologies. The significant predominance of upper motor neuron findings could be due to a upper motor neuron predominant process such as primary lateral sclerosis, however bulbar onset ALS muscle remains a possibility. We need to further excludeother bulbar pathology. She did have a normal brain MRI in January 21, 2023 however this was without contrast, and given the quite significant change clinically I think that we should repeat this andalso include contrast to evaluate for any potential brainstem process that could cause similar symptoms, and although I think less likely, given the diffusely increased reflexes I think we should also rule out a cervical myelopathy as well. We will perform additional evaluation for potential motor neuron disease mimickers as below. We will get an EMG and also refer her to speech language pathology to further characterize the pattern of her dysarthria. I would like her to get pulmonary function testing. I think it would be worth repeating her swallow study as well at some point. We will be in close contact and I will see her and her back after we obtain the EMG as well. PLAN: - Recommend brain and cervical spine MRI with and without contrast. She would prefer to do these locally which is reasonable and will be contacting her local primary care physician to arrange these. She will try to have these images uploaded here as well so that we can review them. - EMG with motor neuron disease protocol and to include bulbar needle examination at least including the tongue, staff to do -speech language pathology referral -pulmonary function testing -additional serum lab testing as below - return visit in next 2-3 weeks Orders Placed This Encounter Procedures Lyme Ab Modified 2-Tier w/Reflex, Serum Neurofilament Light Chain (NfL) CK (Creatine Kinase) Myelopathy, Autoimmune/Paraneoplastic Evaluation Copper Hexosaminidase A and Total Hexosaminidase, Leukocytes Antinuclear Ab Crane, S Quantitative M-protein Study Parathyroid Hormone (PTH) Calcium, Total Phosphorus Inorganic Creatinine with Estimated GFR Vitamin E Level Ganglioside Antibody Panel Pernicious Anemia Crane Thyroid Function Crane Cryopreservation for Molecular Genetic Studies Neurology office visit (clinic) SHOPPING CENTRE MANAGER Speech language evaluate and treat EMG Pulmonary Function Tests PATIENT EDUCATION Ready to learn, no apparent learning barriers were identified; learning preferences include listening. Explained diagnosis and treatment plan; patient expressed understanding of the content. documented in this encounter Miscellaneous Notes * Addendum Note - Tyson Carreon M.D. - 10/17/2023 1:00 PM CDTAddended by: TYSON CARREON on: 10/18/2023 02:13 PM Modules accepted: Orders documented in this encounter Plan of Treatment Upcoming Encounters Date Type Department Care Team (Late st Contact Info) Description 10/25/2023 3:30 PM CDT Office Visit Department of Neurology in [address] [phone] Tyson Carreon M.D. [address] [place] [phone] Discharge Disposition: Home or Self Care 12/01/2023 8:15 PM CDT Appointment Department of Radiology, [facility] in [place], [place] [address] [place] [address] Tyson Carreon M.D. [address] [place] [phone] 01/09/2024 1:00 PM CDT Appointment Department of Pulmonary Medicine in [address] [phone] Tyson Carreon M.D. [address] [place] [phone] Discharge Disposition: Home or Self Care Pending [...] Neuron Disease (HCC) 10/17/2023 2:46 PM CDT EMG Neurology Routine Other Motor Neuron Disease (HCC) 10/19/2023 7:11 AM CDT Scheduled Orders Name Type Priority Associated Diagnoses Order Schedule Pulmonary Function Tests PFT Routine Other Motor Neuron Disease (HCC) Expected: 10/17/2023, Expires: 01/16/2025 Neurofilament Light Chain (NfL) Lab Routine Other Motor Neuron Disease (HCC) Expected: 10/17/2023 (Approximate), Expires: 01/16/2025 Hexosaminidase A and Total Hexosaminidase, Leukocytes Lab Routine Other Motor Neuron Disease (HCC) Expected: 10/17/2023, Expires: 10/16/2024 Ganglioside Antibody Panel Lab Routine Other Motor Neuron Disease (HCC) Expected: 10/17/2023, Expires: 01/16/2025 MR Brain without and with IV Contrast Imaging RAD - Routine (most inpatients and all outpatients) Anterior Horn Cell Disease (HCC) Expected: 10/18/2023, Expires: 01/17/2025 MR Cervical Spine without and with IV Contrast Imaging RAD - Routine (most inpatients and all outpatients) Other Motor Neuron Disease (HCC) Expected: 10/18/2023, Expires: 01/17/2025 Scheduled Referrals Name Type Priority Associated Diagnoses Orde r Schedule Neurology office visit (clinic) Outpatient Referral Routine Expected: 10/31/2023, Expires: 01/16/2025 documented as of this encounter Results * Lyme Ab Modified [...] M.D. LAB MICROBIOLOGY - B LOOD ORDERABLES [facility] [address] [place] [address], [place] E[place] [facility] [place] [address] * Cryopreservation for Molecular Genetic Studies (10/17/2023 2:43 PM CDT) Pathologist [facility] Comment A DNA specimen has been stored for future genomic studies. This specimen has been stored at the request of the ordering physician for anticipated future testing. In some instances, a portion of the specimen may remain available (by consent) for use by the individual and/or family. This is not a DNA banking service. If manager long term care, guaranteed specimen storage is required, DNA banking [...] M.D. LAB GENETIC TESTING Performing Organization Address City/[facility]/ZIP Co de Phone Number [facility] [address] [place] [address], [place] DTL 200 [facility] [address] [place] [address] * (ABNORMAL) Thyroid Function Crane (10/17/2023 2:43 PM CDT) TSH, Sensitive 10.3(H) 0.3 - 4.2 mIU/L 10/17/2023 3:35 PM CDT [facility] Blood (Blood, Venous) 10/17/2023 2:43 PM CDT 10/17/2023 2:49 PM CDT Tyson Carreon M.D. LAB BLOOD ADD-ON Performing Organization Address City/[facility]/ZIP Co de Phone Number [facility] [address] [place] [address], [place] RDWG [facility] [place] [address] [place] [phone] * Pernicious Anemia Crane (10/17/2023 2:43 PM CDT) Vitamin B12 Assay, S 248 180 - 914 ng/L 10/18/2023 11:55 AM CDT [facility] Comment:B-12 <400; MMA test was performed. Blood (Blood, Venous) 10/17/2023 2:43 PM CDT 10/18/2023 8:35 AM CDT Narrative [facility] - 10/18/2023 11:55 AM CDT Specimen Information: Specimen ID: [id number] Specimen Type: Blood Specimen Collection Start Date: 10/17/2023 ??2:43 PM Specimen Received Date: 10/18/2023 ??8:35 AM Specimen ID: [id number] Specimen Type: Blood Specimen Collection Start Date: 10/17/2023 ??2:43 PM Specimen Received Date: 10/18/2023 ??8:52 AM Tyson Carreon M.D. LAB BLOOD NON ADD-ON Performing Organization Address City/[facility]/ZIP Co de Phone Number [facility] [address] [place] [address] [facility] [address] [place] [address] * Creatinine with Estimated GFR (10/17/2023 2:43 PM CDT) Creatinine 0.78 0.59 - 1.04 mg/dL 10/17/2023 3:17 PM CDT [facility] Estimated GFR (eGFR) 87 >=60 mL/min/BSA 10/17/2023 3:17 PM CDT [facility] Comment: Estimated GFR calculated using the 2020 CKD_EPI creatinine equation. Blood (Blood, Venous) 10/17/2023 2:43 PM CDT 10/17/2023 2:49 PM CDT Tyson Carreon M.D. LAB BLOOD ADD-ON Performing Organization Address [facility] Co de Phone Number [facility] [address] [place] [address], [place] RDW[place] [facility] [address] [place] [phone] * Phosphorus Inorganic (10/17/2023 2:43 PM CDT) Phosphorus (Inorganic), P 3.0 2.5 - 4.5 mg/dL 10/17/2023 3:17 PM CDT [facility] Blood (Blood, Venous) 10/17/2023 2:43 PM CDT 10/17/2023 2:49 PM CDT Tyson Carreon M.D. LAB BLOOD ADD-ON Performing Organization Address City/[facility] Co de Phone Number [facility] [address] [place] [address], [place] [facility] [place] [phone] * Calcium, Total (10/17/2023 2:43 PM CDT) Calcium, Total, P 9.3 8.6 - 10.0 mg/dL 10/17/2023 3:17 PM CDT [facility] Blood (Blood, Venous) 10/17/2023 2:43 PM CDT 10/17/2023 2:49 PM CDT Tyson Carreon M.D. LAB BLOOD ADD-ON Performing Organization Address [facility] Co de Phone Number [facility] [place] [address], [place] RDW[place] [facility] [place] [address] * (ABNORMAL) Parathyroid Hormone (PTH) (10/17/2023 2:43 PM CDT) Parathyroid Hormone (PTH), S 74(H) 15 - 65 pg/mL 10/17/2023 3:27 PM CDT [facility] Comment: Biotin has been identified by the property manager as a potential interfering substance. Higher concentrations of biotin may be found in multivitamins, hair/nail supplements, and workout supplements. If the result does not match clinical observations, repeat testing after patient refrains from the use of supplements for at least 12 hours. Blood (Blood, Venous) 10/17/2023 2:43 PM CDT 10/17/2023 2:49 PM CDT Tyson Carreon M.D. LAB BLOOD ADD-ON Performing Organization Address [facility]/ZIP Co de Phone Number [facility] [address] [address], [place] [facility] [place] [address] [place] [phone] * Quantitative M-protein Study (10/17/2023 2:43 PM [...] developed and its performance characteristics determined by [facility] in a manner consistent with CLIA requirements. This test has not been cleared or approved by the U.S. Food and Drug Administration. Blood (Blood, Venous) 10/17/2023 2:43 PM CDT 10/18/2023 6:28 AM CDT Narrative [facility] - 10/19/2023 8:50 AM CDT Specimen Information: Specimen ID: [id number] Specimen Type: Blood Specimen Collection Start Date: 10/17/2023 11:00 PM Specimen Received Date: 10/18/2023 ??6:28 AM Specimen ID: [id number] Specimen Type: Blood Specimen Collection Start Date: 10/17/2023 ??2:43 PM Specimen Received Date: 10/18/2023 ??7:09 AM Tyson Carreon M.D. LAB BLOOD ADD-ON [facility] [address] [place] [address] [facility] [address] [place] [address] [facility] [address] [place] [address] * Antinuclear Ab Crane, S (10/17/2023 2:43 PM CDT) [facility] Antinuclear Ab Screen by IFA, S Negative Negative 10/19/2023 8:45 AM CDT [facility] Comment:No titer performed, COURT screen is negative. Blood (Blood, Venous) 10/17/2023 2:43 PM CDT 10/17/2023 9:02 PM CDT Tyson Carreon M.D. LAB BLOOD NON ADD-ON Performing Organization Address City/[facility]/ZIP Co de Phone Number [facility] [address] [place] [id number] ECLR [address] [place] [phone] * Copper (10/17/2023 2:43 PM CDT) [facility] Copper, S 115 77 - 206 mcg/dL 10/18/2023 10:42 AM CDT [facility] Comment: ----ADDITIONAL INFORMATION---- This test was developed and its performance characteristics determined by [facility] in a manner consistent with CLIA requirements. This test has not been cleared or approved by the U.S. Food and Drug Administration. Blood (Blood, Venous) 10/17/2023 2:43 PM CDT 10/17/2023 9:48 PM CDT Tyson Carreon M.D. LAB BLOOD NON ADD-ON [facility] [address] [place] [address] [facility] [address] [place] [address] * CK (Creatine Kinase) (10/17/2023 2:43 PM CDT) Creatine Kinase, P 163 26 - 192 U/L 10/17/2023 3:17 PM CDT [facility] Blood (Blood, Venous) 10/17/2023 2:43 PM CDT 10/17/2023 2:49 PM CDT Tyson Carreon M.D. LAB BLOOD ADD-ON Performing Organization Address City/[facility]/ZIP Co de Phone Number [facility] [address] [place] [address], [place] [facility] [facility] [address] [place] [address] * Vitamin E Level (10/17/2023 2:39 PM CDT) A-Tocopherol, Vitamin E 13.6 5.5 - 17.0 mg/L 10/19/2023 8:25 AM CDT [facility] Comment: ----ADDITIONAL INFORMATION---- This test was developed and its performance characteristics determined by [facility] in a manner consistent with CLIA requirements. This test has not been cleared or approved by the U.S. Food and Drug Administration. Blood (Blood, Venous) 10/17/2023 2:39 PM CDT 10/18/2023 11:23 AM CDT Tyson Carreon M.D. LAB BLOOD NON ADD-ON [facility] [address] [place] [address] [facility] 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
--- NOTE | 2023-10-19 15:30 | MR_ITS ---
Patient: JOHNIE CHURCHILL Facility:?[facility] RIS Patient ID:?[id number] Site Patient ID:?[id number]. Site :?[id number] Study:?MRI-Spine Cervical W/WO 20 CC DOTAREM-10/19/2023 4:52:00 PM Ordering Physician:Niall Parikh Final Report: INDICATION: Dysphasia. TECHNIQUE: Cervical spine MRI with and without contrast. 20 cc Dotarem gadolinium based intravenous contrast. COMPARISON: : None. FINDINGS: : Slight cervical kyphosis. No recent compression fracture or marrow replacing process. Posterior fossa structures are normal. Cervical cord signal is normal. No intradural lesion. No abnormal enhancement within the cervical spinal cord, or the imaged spinal column and skull base. Partially visualized T2 hyperintense mass within the right thyroid lobe which measures up to 2.4 centimeters. Discs/endplates: Moderate disc height loss and disc desiccation C5-6 and C6-7. Mild disc degeneration elsewhere. Findings at individual levels as follows: Craniocervical junction: Alignment is maintained. C2-C3: No spinal canal or neural foraminal stenosis. C3-C4: 2 millimeters anterolisthesis. Right uncovertebral and facet arthrosis with mild right neural foraminal stenosis. No left neural foraminal stenosis or spinal canal stenosis. C4-C5: Shallow disc osteophyte complex flattens the thecal sac. No spinal canal stenosis. Bilateral uncovertebral arthrosis with minimal right and mild left neural foraminal stenosis. C5-C6: 2 millimeters anterolisthesis. Bilateral uncovertebral arthrosis with mild right and no left neural foraminal stenosis. No spinal canal stenosis. C6-C7: Disc osteophyte complex flattens the thecal sac. No spinal canal stenosis. Bilateral uncovertebral arthrosis with mild right and enaq-tz-mvguneef left neural foraminal stenosis. C7-T1: 2 millimeters anterolisthesis. Bilateral facet arthrosis. Mild left neural foraminal stenosis. No right neuroforaminal stenosis or spinal canal stenosis. T1-2: No spinal canal or neural foraminal stenosis. IMPRESSION: : 1. Scattered cervical spondylosis without high-grade spinal canal/neural foraminal stenosis or kalani impingement of neural structures. 2. Cervical cord signal is normal. No intradural pathology. 3. 2.4 millimeter mass right thyroid lobe. Consider ultrasound for further assessment. Dictated by Douglas Mo MD @ 10/20/2023 7:45:45 PM Signed by:?Douglas Mo MD @10/20/2023 7:45:45 PM (Electronic Signature)
--- NOTE | 2023-10-19 15:30 | MR_ITS ---
Patient: JOHNIE CHURCHILL Facility:?[facility] RIS Patient ID:?[id number] Site Patient ID:?[id number]. Site :?1965 Study:?MRI-Head W/ and W/O Cont 20 CC DOATERM-10/19/2023 4:51:28 PM Ordering Physician:Niall Parikh Final Report: INDICATION: Fasciculations. TECHNIQUE: Brain MRI with and without contrast. 20 cc gadolinium based contrast administered. COMPARISON: Brain MRI from 01/17/2023. FINDINGS: No evidence of acute ischemia. No evidence of acute or chronic intracranial blood products. 6 millimeter enhancing lesion within the left IAC extending to the fundus, compatible with a schwannoma. A small left subinsular developmental venous anomaly. A few small FLAIR hyperintense foci scattered within the supratentorial white matter, typical for chronic microvascular ischemic change. No hydrocephalus or extra-axial collections. The pituitary gland, parasellar structures and optic chiasm are normal. Posterior fossa is normal. All the major intracranial vascular structures demonstrate normal flow-related signal. The orbital contents are normal. No calvarial or skull base marrow signal abnormality. No obstructive sinus disease. No extracranial soft tissue findings. IMPRESSION: 1. No acute ischemia or other acute intracranial pathology. 2. A 6 millimeter presumed vestibular schwannoma within the left IAC. No enhancing lesions elsewhere within the brain. 3. Minimal chronic microvascular ischemic changes. Dictated by Douglas Mo MD @ 10/20/2023 7:04:54 PM Signed by:?Douglas Mo MD @10/20/2023 7:04:54 PM (Electronic Signature)
== END 2023-10-19 15:02 | disposition home or self-care (01) ==
PROVIDERS: PCP Physician Assistant Medical; Visit Provider Physician Assistant Medical
DX: R25.3 Fasciculation (principal); I67.82 Cerebral ischemia; R13.10 Dysphagia, unspecified; M47.892 Other spondylosis, cervical region; E04.1 Nontoxic single thyroid nodule; R47.1 Dysarthria and anarthria; J38.3 Other diseases of vocal cords
CPT/HCPCS: 70553; 72156; A9575

== ENCOUNTER 2023-11-07 12:34 | Outpatient (CLI) | payer MEDICARE, BC, SELFPAY ==
--- OUTSIDE RECORDS SUMMARY | 2023-11-07 12:36 | XMS_ITS | Encounter Summary ---
Author Organization [place] Address [address] [place] [address]. [place] [address] Care Team Providers Care Concrete Engineering Technician Name Role Phone Nicanor Thomas MD Primary Care Provider Encounter Details Date Type Department Care Team (Late Contact Info) Description 11/02/2023 1:00 PM CDT Office Visit [facility] Pulmonary Function Testing [address] [phone] Muscle weakness (generalized) Social History Tobacco Use Types Packs/Day Years Used Date Smoking Tobacco: Never Alcohol Use Standard Drinks/Week Comments Yes 0 (1 standard drink = 0.6 oz pur e alcohol) 3 drinks weekly Adolescent Education Answer Date Record ed Getting School Help Needed Not on file 11/01 Sex and Gender Information Value Date Recorded Sex Assigned at Not on file Gender Identity Not on file Sexual Orientation Not on file documented as of this encounter Progress Notes * Elyse Amor - 11/02/2023 1:00 PM CDT Spirometry and MIP/MEP done. documented in this encounter Plan of Treatment Upcoming Encounters Date Type Department Care Team (Late Contact Info) Description 11/10/2023 1:00 PM CDT Office Visit [facility] Neurology Clinic [address] [phone] Yemi Bacon MD [address] [place] [address] [id number] [place] [address] documented as of this encounter Procedures Procedure Name Priority Date/Time Associated Diagnosis Comments MS MIP/MEP Routine 11/02/2023 1:02 PM CDT Muscle weakness (generalized) MS RESPIRATORY FLOW VOLUME LOOP Routine 11/02/2023 1:02 PM CDT Muscle weakness (generalized) PFT GENERAL LAB TESTING Routine 11/02/2023 12:50 PM CDT Muscle weakness (generalized) documented in this encounter Results * Pulmonary Function Test (11/02/2023 12:50 PM CDT) FVC-Pred 3.14 L BREEZE PFT FVC-Pre 3.29 L BREEZE PFT FVC-%Pred-Pre 104 % BREEZE PFT FEV1-Pre 2.67 L BREEZE PFT FEV1-%Pred-Pre 107 % BREEZE PFT [id number] 80 % BREEZE PFT [id number] 81 % BREEZE PFT FEFMax-Pred 6.63 L/sec BREEZE PFT FEFMax-Pre 5.47 L/sec BREEZE PFT FEFMax-%Pred-Pr e 82 % BREEZE PFT [id number] 2.27 L/sec BREEZE PFT [id number] 2.74 L/sec BREEZE PFT [id number]-%Pred-P re 120 % BREEZE PFT ExpTime-Pre 5.71 sec BREEZE PFT FIFMax-Pre 2.04 L/sec BREEZE PFT MEP-Pre 70 cmH2O BREEZE PFT MIP-Pre -50 cmH2O BREEZE PFT [id number] 81 % BREEZE PFT [id number] 82 % BREEZE PFT 11/02/2023 12:5 0 PM CDT Narrative BREEZE PFT - 11/03/2023 6:37 PM CDT The FVC, FEV1, FEV1/FVC ratio and LNL40-36% are within normal limits. IMPRESSION: Normal Spirometry. MIP and MEP are reduced. ?This interpretation has been electronically signed: ??RIOS CHRISTIANSON 11/03/2023 ??06:09:20 PM? Yemi Bacon MD PFT ORDERABLES LEXIE PFT documented in this encounter Visit Diagnoses Diagnosis Muscle weakness (generalized) documented in this encounter Care Teams Concrete Engineering Technician Relationship Specialty Start Date End Date Nicanor Thomas MD [facility] [address] [place] [address] PCP - General 07/13/05 documented as of this encounter
--- OUTSIDE RECORDS SUMMARY | 2023-11-07 12:36 | XMS_ITS | Encounter Summary ---
Author Organization [place] Address [address] [place] [address]. [place] [address] Care Team Providers Care Patient Care Secretary Name Role Phone Nicanor Thomas MD Primary Care Provider Encounter Details Date Type Department Care Team (Latest Contact Info) Description 11/02/2023 Travel Social History Tobacco Use Types Packs/Day Years [...] Care Team (Late st Contact Info) Description 11/10/2023 1:00 PM CDT Office Visit [facility] Neurology Clinic [address] [place] [address] Yemi Bacon MD [address] [place] [address] [id number] [place] [address] documented as of this encounter Visit Diagnoses Not on filedocumented in this encounter Care Teams Patient Care Secretary Relationship Specialty Start Date End Date Nicanor Thomas MD [facility] [address] [place] [address] PCP - General 07/13/05 documented as of this encounter
--- OUTSIDE RECORDS SUMMARY | 2023-11-07 12:36 | XMS_ITS ---
Author Organization [facility] Address [address] [place] [address] Care Team Providers Care Manufacturing Mechanic Name Role Phone Unavailable Unavailable Unavailable Surgery Details Not on file Complications Check Surgery Details section. Procedure Estimated Blood Loss Check Surgery Details section. Procedure Findings Check Surgery Details section. Procedure Specimens Taken Check Surgery Details section.
--- OUTSIDE RECORDS SUMMARY | 2023-11-07 12:36 | XMS_ITS | Encounter Summary ---
Author Organization [place] Address [address] [place] [address]. [place] [address] Care Team Providers Care Technology Applications Engineer Name Role Phone Nicanor Thomas MD Primary Care Provider Reason for Visit * Reason Onset Date Comments Referral 10/28/2023 [facility] Encounter Details Date Type Department Care Team (Late st Contact Info) Description 10/28/2023 [facility] Neurology Clinic [address] [place] [address] None Referral (ALS Multidisciplinary Clinic/) Social History Tobacco Use Types Packs/Day Years Used Date Smoking Tobacco: Never Alcohol Use Standard Drinks/Week Comments Yes 0 (1 standard drink = 0.6 oz pur e alcohol) 3 drinks weekly Sex and Gender Information Value Date Recorded Sex Assigned at Not on file Gender Identity Not on file Sexual Orientation Not on file documented as of this encounter Miscellaneous Notes * Telephone Encounter - Hailey Multani - 10/28/2023 10:44 AM CDT [facility] Call Center Phone Message May a detailed message be left on voicemail: yes Reason for Call: Appointment Intake Referring Provider Name: Lizandro López affiliated with [facility]. Diagnosis and/or Symptoms: ALS Multidisciplinary Clinic Estimator Jewelry sending TE per protocols, please review and assist with scheduling Action Taken: Message routed to: [facility] neurology Travel Screening: Not Applicable Date of Service: documented in this encounter Plan of Treatment Upcoming Encounters Date Type Department Care Team (Late st Contact Info) Description 11/10/2023 1:00 PM CDT Office Visit [facility] Neurology Clinic [address] [place] [phone] Yemi Bacon MD [address] [place] [address] [id number] [place] [address] documented as of this encounter Visit Diagnoses Not on filedocumented in this encounter Care Teams Technology Applications Engineer Relationship Specialty Start Date End Date Nicanor Thomas MD [facility] [address] [address] PCP - General 07/13/05 documented as of this encounter
--- OUTSIDE RECORDS SUMMARY | 2023-11-07 12:36 | XMS_ITS | Encounter Summary ---
Author Organization [facility] Address [address] [place] [address] Care Team Providers Care Business Mail Entry Clerk Name Role Phone Unavailable Primary Care Provider Unavailabl e Reason for Visit * Reason Onset Date Comments Med Question 11/07/2023 Encounter Details Date Type Department Care Team (Latest Contact Info) Description 11/07/2023 Clinical Communication Department of Cardiovascular Diseases in [address] [phone] Lizandro López M.D. [address] [place] [phone] Med Question Social History Tobacco Use Types Packs/Day Years Used Date Smoking Tobacco: Never Smokeless Tobacco: Never Alcohol Use Standard Drinks/Week Comments Yes 5 (1 standard drink = 0.6 oz pur e alcohol) [facility] Utilities Answer Date Recorded In the past 12 months has paymio, gas, oil, or water [employer] threatened to shut off services in your home? No 10/22/2023 Exercise Vital Sign Answer Date Recorde d On average, how many days pe r week do you engage in moderate to strenuous exercise (like a brisk walk)? 7 days 10/22/2023 On average, how many minutes do you engage in exercise at this level? 120 min 10/22/2023 Hunger Vital Sign Answer Date Recorded Within the past 12 months, y ou worried that your food would run out before you got the money to buy more. Never true 10/22/19 24 Within the past 12 months, t he food you bought just didn't last and you didn't have money to get more. Never true 10/22/2023 PRAPARE - Transportation Answer Date Re corded In the past 12 months, has l ack of transportation kept you from medical appointments or from getting medications? No 10/03 In the past 12 months, has l ack of transportation kept you from meetings, work, or from getting things needed for daily living? No 10/22/2023 Nutrition Answer Date Recorded On average, how many serving s of fruits and vegetables do you eat per day (serving size is equal to 1 cup or approximately the size of a tennis ball)? 3-5 10/22/2023 Dental Answer Date Recorded Dental: Regular Dentist Yes 10/22/19 Employment Answer Date Recorded Employment status Retired 10/22/2023 Housing Stability Answer Date Recorded What is your living situation today? I have a [facility] place to live 10/22/2023 Sex and Gender Information Value Date Recorded Sex Assigned at Female 10/22/2023 5:48 PM CDT Gender Identity Female 10/22/2023 5:48 PM CDT Sexual Orientation Straight 10/22/2023 5: 48 PM CDT documented as of this encounter Plan of Treatment Not on file documented as of this encounter Visit Diagnoses Not on filedocumented in this encounter
--- OUTSIDE RECORDS SUMMARY | 2023-11-07 12:36 | XMS_ITS | Referral Summary ---
Author Organization [place] Address [address] [place] [address]. [place] [address] Care Team Providers Care Family Support Coordinator Name Role Phone Nicanor Thomas MD Primary Care Provider Encounters Date Type Department Care Team Description 11/02/2023 Travel 11/02/2023 1:30 PM CDT Office Visit [facility] Neurology Clinic [address] [phone] Yemi Bacon MD ALS (amyotrophic lateral sclerosis) (H) (Primary Dx); Acquired amyotrophic lateral sclerosis (H) 11/02/2023 1:00 PM CDT Office Visit [facility] Pulmonary Function Testing [address] [phone] Muscle weakness (generalized) 10/28/2023 Orders Only [facility] Neurology [facility] [address] [phone] Irma Batista LPN Muscle weakness (generalized) (Primary Dx) 10/28/2023 Telephone [facility]rology [facility] [address] [phone] None Referral (ALS Multidisciplinary Clinic/) 10/27/2023 Transcribe Orders GENERIC EXTERNAL DATA DEPARTMENT Provider, Generic External Data Acquired amyotrophic lateral sclerosis (H) (Primary Dx) from Last 3 Months Allergies Active Allergy Reactions Criticality Noted Date Comments Penicillins Rash High 06/18/2013 Medications Medication Sig Dispensed Refills Start Date End Date Status levothyroxine (SYNTHROID/LEVOTHROID) 50 MCG tablet Take 1 tablet by mouth daily Active cetirizine (ZYRTEC) 5 MG tablet Take 5 mg by mouth daily Unknown dosage otc Active venlafaxine (EFFEXOR XR) 37.5 MG 24 hr capsule Take 1 capsule by mouth daily Active ALPRAZolam (XANAX) 0.25 MG tablet Take 0.25 mg by mouth 3 times daily as needed for anxiety Unknown dosage Active riluzole (RILUTEK) 50 MG tablet Take 50 mg by mouth Twice daily 10/27/2023 Active Social History Tobacco Use Types Packs/Day Years [...] Sign Reading Time Taken Comments Blood Pressure 114/75 11/02/2023 2:01 PM CDT Pulse 83 11/02/2023 2:01 PM CDT Temperature - - Respiratory Rate 12 07/20/2005 10:45 AM CDT Oxygen Saturation 100% 11/02/2023 2:01 PM CDT Inhaled Oxygen Concentration - - Weight 60.5 kg (133 lb 4.8 oz) 11/02/2023 2:01 P M CDT Height 168.9 cm (5' 6.5) 11/02/2023 2:01 PM CDT Body Mass Index 21.19 11/02/2023 2:01 PM CDT Plan of Treatment Upcoming Encounters Date Type Department Care Team (Late st Contact Info) Description 11/10/2023 1:00 PM CDT Office Visit [facility] Neurology Clinic [address] [place] [address] Yemi Bacon MD [address] [place] [address] [id number] [place], [place] [id number] Procedures Procedure Name Priority Date/Time Associated Diagnosis Comments [place] RESPIRATORY FLOW VOLUME LOOP Routine 11/02/2023 1:02 PM CDT Muscle weakness (generalized) [place] MIP/MEP Routine 11/02/2023 1:02 PM CDT Muscle weakness (generalized) PFT GENERAL LAB TESTING Routine 11/02/2023 12:50 PM CDT Muscle weakness (generalized) HC MAMMOGRAM, SCREENING BILATERAL Routine 01/02/2007 3:39 PM CDT HCL GLUCOSE Routine 08/03/2005 9:11 AM CDT Screening-Diabetes Mellitus CL AFF A.M.A. LIPID PANEL Routine 08/03/2005 9:11 AM CDT Screening-Lipoid Disorders HCL TSH W/FREE T4 REFLEX Routine 07/20/2005 11:40 AM CDT Irregular Menstruation HCL PAP THIN LAYER SCREEN Routine 07/20/2005 12:00 AM CDT Routine Medical Exam from Last 3 Months or Most Recently Relevant to Health Maintenance Results * Pulmonary Function Test (11/02/2023 12:50 PM CDT) FVC-Pred 3.14 L BREEZE PFT FVC-Pre 3.29 L BREEZE PFT FVC-%Pred-Pre 104 % BREEZE PFT FEV1-Pre 2.67 L BREEZE PFT FEV1-%Pred-Pre 107 % BREEZE PFT [id number] 80 % BREEZE PFT [id number] 81 % BREEZE PFT FEFMax-Pred 6.63 L/sec BREEZE PFT FEFMax-Pre 5.47 L/sec BREEZE PFT FEFMax-%Pred-Pr e 82 % BREEZE PFT [id number] 2.27 L/sec BREEZE PFT [id number] 2.74 L/sec BREEZE PFT [id number]-%Pred-P re 120 % BREEZE PFT ExpTime-Pre 5.71 sec BREEZE PFT FIFMax-Pre 2.04 L/sec BREEZE PFT MEP-Pre 70 cmH2O BREEZE PFT MIP-Pre -50 cmH2O BREEZE PFT [id number] 81 % BREEZE PFT [id number] 82 % BREEZE PFT 11/02/2023 12:5 0 PM CDT Narrative BREEZE PFT - 11/03/2023 6:37 PM CDT The FVC, FEV1, FEV1/FVC ratio and SXU90-86% are within normal limits. IMPRESSION: Normal Spirometry. MIP and MEP are reduced. ?This interpretation has been electronically signed: ??RIOS CHRISTIANSON 11/03/2023 ??06:09:20 PM? Yemi Bacon MD PFT ORDERABLES Performing Organization Address [facility] [address]/[facility] Co de Phone Number [facility] PFT * MAMMOGRAM, SCREENING (01/02/2007 3:39 PM CDT) Anatomical Region Laterality Modality Other 01/02/2007 3:39 PM CDT Impressions 01/04/2007 3:42 PM CDT EXAM: BILATERAL SCREENING MAMMOGRAPHY HISTORY/COMPARISON: ??Routine,baseline Breast parenchyma: Heterogeneous. FINDINGS: Negative. IMPRESSION: Category 1. Negative. This exam was evaluated with the assistance of computer aided detection (CAD). Yemi Brown MD SPECIAL IMAGING VINAY DIES * GLUCOSE (08/03/2005 9:11 AM CDT) Glucose 88 60 - 110 mg/dL [facility] 08/03/2005 9:11 AM CDT 08/03/2005 9:13 AM CDT Nicanor Thomas MD LABORATORY Performing Organization Address [facility] [address]/[facility] Co de Phone Number [facility] * (ABNORMAL) A.M.A. LIPID PANEL (08/03/2005 9:11 AM CDT) Cholesterol 147 0 - 200 mg/dL [facility] Comment: LDL Cholesterol is the primary guide to therapy: LDL-cholesterol goal in high risk patients is <100 mg/dL and in very high risk patients is <70 mg/dL. The NCEP recommends further evaluation of: patients with cholesterol <200 mg/dL if additional risk factors are present, cholesterol >240 mg/dL, triglycerides >150 mg/dL, or HDL <40 mg/dL. Triglycerides 73 0 - 150 mg/dL [facility] HDL Cholesterol 45(L) 50 - 110 mg/dL [facility] LDL Cholesterol Calculated 87 0 - 129 mg/dL [facility] Comment: LDL Cholesterol is the primary guide to therapy: LDL-cholesterol goal in high risk patients is <100 mg/dL and in very high risk patients is <70 mg/dL. VLDL-Cholesterol 15 0 - 30 mg/dL [facility] Cholesterol/HDL Ratio 3.2 0.0 - 5.0 [facility] 08/03/2005 9:11 AM CDT 08/03/2005 9:13 AM CDT Nicanor Thomas MD LABORATORY Performing Organization Address City/[facility] [address]/ZIP Co de Phone Number [facility] * TSH W/FREE T4 REFLEX (07/20/2005 11:40 AM CDT) TSH 3.64 0.4 - 5.0 mU/L [facility] 07/20/2005 11:4 0 AM CDT 07/20/2005 11:42 AM CDT Nicanor Thomas MD LABORATORY [facility] * A THIN LAYER PAP SCREEN (07/20/2005 12:00 AM CDT) PAP VALENTINA Mosqueda Report Patient Name: JOHNIE HINOJOSA MR#: [id number] Specimen #: [id number] Collected: 07/20/2005 Received: 07/21/2005 Reported: 07/22/2005 08:34 Ordering Phy(s): NICANOR THOMAS SPECIMEN/STAIN PROCESS: Pap thin layer prep screening ([facility]) ? Pap-Cyto x 1, Reflex HPV x 1 SOURCE: Cervical, endocervical Pap thin layer prep screening ([facility]) SPECIMEN ADEQUACY: Satisfactory for evaluation. -Transformation zone component present. CYTOLOGIC INTERPRETATION: Negative for Intraepithelial Lesion or Malignancy Electronically signed out by: HUBER Finn (ASCP) Processed and screened at [facility] CLINICAL HISTORY: Irregular Bleeding Other: spotting, Previous normal pap Date of Last Pap: Other: history previous abnormal 8 years ago/colpo normal paps since that time), TESTING LAB LOCATION: [address] ??[phone] COLLECTION SITE: Client: ??[facility] Location: [facility] (R) COPATH 07/20/2005 07/21/2005 10: 18 AM CDT Nicanor Thomas MD LABORATORY COPATH from Last 3 Months or Most Recently Relevant to Health Maintenance Care Teams Family Support Coordinator Relationship Specialty Start Date End Date Nicanor Thomas MD [facility] [employer] [address] [place], [place] [id number] PCP - General 07/13/05
--- OUTSIDE RECORDS SUMMARY | 2023-11-07 12:36 | XMS_ITS | Encounter Summary ---
Author Organization [facility] Address [address] [place] [address] Care Team Providers Care Hotel Maid Name Role Phone Unavailable Primary Care Provider Unavailabl e Reason for Referral * Medication Prior Authorization - Closed Specialty Diagnoses / Procedures Referred By Paolo llanos Referred To Contact Lizandro López M.D. [address] [place] [address] Referral ID Status Reason Start Date Expiration Date Visits Re quested Visits Authorized [id number] Closed 1 1 Reason for Visit * Reason Onset Date Comments Rx Prior Authorization 10/26/2023 [facility] Encounter Details Date Type Department Care Team (Latest Contact Info) Description 10/26/2023 Clinical Communication Department of Neurology in [place], [place] [address] [place] [phone] Lizandro López M.D. [address] [place] [phone] Rx Prior Authorization ([facility] ) Social History Tobacco Use Types Packs/Day Years Used Date Smoking Tobacco: Never Smokeless Tobacco: Never Alcohol Use Standard Drinks/Week Comments Yes 5 (1 standard drink = 0.6 oz pur e alcohol) [facility] Utilities Answer Date Recorded In the past 12 months has e electric, gas, oil, or water company threatened to shut off services in your [...] money to buy more. Never true 10/22/19 Within the past 12 months, t he [...] your living situation today? I have a [facility] place to live 10/22/2023 Sex and Gender [...]
--- OUTSIDE RECORDS SUMMARY | 2023-11-07 12:36 | XMS_ITS | Clinical Summary ---
Author Organization [place] Address [address] [place] [address]. [place] [address] Care Team Providers Care Spa Therapist Name Role Phone Felipe Thomas MD Primary Care Provider Allergies Active Allergy Reactions Criticality Noted Date [...] mg by mouth Twice daily 10/27/2023 Active Encounters Date Type Department Care Team Description 11/02/2023 1:30 PM CDT Office Visit [facility] Neurology Clinic [address] [address] Yemi Bacon MD ALS (amyotrophic lateral sclerosis) (H) (Primary Dx); Acquired amyotrophic lateral sclerosis (H) 11/02/2023 1:00 PM CDT Office Visit [facility] Pulmonary Function Testing [address] [address] Muscle weakness (generalized) 11/02/2023 Travel 10/28/2023 Orders Only [facility] Neurology [facility] [address]rd [place] [address] Irma Batista LPN Muscle weakness (generalized) (Primary Dx) 10/28/2023 Telephone [facility] Neurology [facility] [address] [place] [address] None Referral (ALS Multidisciplinary Clinic/) 10/27/2023 Transcribe Orders GENERIC EXTERNAL DATA DEPARTMENT Provider, Generic External Data Acquired amyotrophic lateral sclerosis (H) (Primary Dx) from Last 3 Months Family History Medical History Relation Comments C.A.D. Father PINZON at 60 yrs old , had high cholestrol Lipids Father Neurologic Disorder Father Parkinson's Thyroid Disease Father Cancer Maternal Grandmother uterine (?) Alcohol/Drug Mother recovering C.A.D. Mother quintaple bypass surgery at 77yrs, diseased now Lipids Mother Thyroid Disease Mother Thyroid Disease Sister 4 Thyroid Disease Sister 5 Thyroid Disease Sister 6 Cancer Sister 7 vulvar - squamou s cell Relation Status Comments Brother 1 Alive Brother 2 Alive Brother 3 Alive Father (Age 83) Parkinson's Maternal Grandmother Mother Alive Sister 1 Alive Sister 2 Alive Sister 3 Alive Sister 4 Sister 5 Sister 6 Sister 7 Social History Tobacco Use Types Packs/Day Years [...] Description 11/10/2023 1:00 PM CDT Office Visit [facility] Neurology Clinic [address] [place] [address] Yemi Bacon MD [address] [place] [address] [id number] [place] [address] Health Maintenance Due Date Last Done Comments ADVANCE CARE PLANNING 1965 ANNUAL REVIEW OF HM ORDERS 1964 CT COLONOGRAPHY 1964 FIT 1964 FLEX SIG 1964 sDNA (Cologuard) 1964 COLONOSCOPY 1974 COLORECTAL CANCER SCREENING 1974 HIV SCREENING 1979 HEPATITIS C SCREENING 1982 HEPATITIS B IMMUNIZATION (1 of 3 - 19+ 3-dose series) 1983 TSH W/FREE T4 REFLEX 07/20/2006 07/20/2005 YEARLY PREVENTIVE VISIT 07/20/2006 07/20/2005 PAP 07/20/2008 07/20/2005 GLUCOSE 08/03/2008 08/03/2005 MAMMO SCREENING 01/02/2009 01/02/2007 LIPID 08/03/2010 08/03/2005 PHQ-2 (once per calendar year) 2023 INFLUENZA VACCINE (#1) 2023 2, 01/22/2020, 01/11/2019, Additional history exists DTAP/TDAP/TD IMMUNIZATION (2 - Td or Tdap) 12/21/2027 12/20/2017 COVID-19 Vaccine Completed 03/03/2023, 01/2023, 02/08/2021, Additional history exists ZOSTER IMMUNIZATION Completed 08/01/2023, 3 HPV IMMUNIZATION Aged Out No longer e ligible based on patient's age to complete this topic IPV IMMUNIZATION Aged Out No longer e ligible based on patient's age to complete this topic MENINGITIS IMMUNIZATION Aged Out No l onger eligible based on patient's age to complete this topic Pneumococcal Vaccine: Pediatrics (0 to 5 Years) and At-Risk Patients (6 to 64 Years) Aged Out No longer eligible based on patient's age to complete this topic RSV MONOCLONAL ANTIBODY Aged Out No l onger eligible based on patient's age to complete this topic Procedures Procedure Name Priority Date/Time Associated Diagnosis Comments NM RESPIRATORY FLOW VOLUME LOOP Routine 11/02/2023 1:02 PM CDT Muscle weakness (generalized) NM MIP/MEP Routine 11/02/2023 1:02 PM CDT Muscle [...] BREEZE PFT FEV1-%Pred-Pre 107 % BREEZE PFT [id number] 80 % BREEZE PFT [id number]-Hvq 81 % BREEZE PFT FEFMax-Pred 6.63 L/sec BREEZE PFT FEFMax-Pre 5.47 L/sec BREEZE PFT FEFMax-%Pred-Pr e 82 % BREEZE PFT [id number] 2.27 L/sec BREEZE PFT [id number] 2.74 L/sec BREEZE PFT UWW4267-%Pred-P re 120 % BREEZE PFT ExpTime-Pre 5.71 sec BREEZE PFT FIFMax-Pre 2.04 L/sec BREEZE PFT MEP-Pre 70 cmH2O BREEZE PFT MIP-Pre -50 cmH2O BREEZE PFT [id number]-Daek 81 % BREEZE PFT [id number]-Alg 82 % BREEZE PFT 11/02/2023 12:5 0 PM CDT Narrative BREEZE PFT - 11/03/2023 6:37 PM CDT The FVC, FEV1, FEV1/FVC ratio and WYY90-72% are within normal limits. IMPRESSION: Normal Spirometry. MIP and MEP are reduced. ?This interpretation has been electronically signed: ??SAMMYRIOS 11/03/2023 ??06:09:20 PM? Yemi Bacon MD PFT ORDERABLES Performing Organization Address [facility] de Phone Number [facility] PFT * MAMMOGRAM, SCREENING (01/02/2007 3:39 PM [...] CDT) Glucose 88 60 - 110 mg/dL [facility] 08/03/2005 9:11 AM CDT 08/03/2005 9:13 AM CDT Felipe Thomas MD LABORATORY Performing Organization Address [facility] Co de Phone Number [facility] * (ABNORMAL) A.M.A. LIPID PANEL (08/03/2005 9:11 AM CDT) Cholesterol 147 0 - 200 mg/dL [facility] Comment: LDL Cholesterol is the primary guide to therapy: LDL-cholesterol goal in high risk patients is <100 mg/dL and in very high risk patients is <70 mg/dL. The NCEP recommends further evaluation of: patients with cholesterol <200 mg/dL if additional risk factors are present, cholesterol >240 mg/dL, triglycerides >150 mg/dL, or HDL <40 mg/dL. Triglycerides 73 0 - 150 mg/dL [facility] HDL Cholesterol 45(L) 50 - 110 mg/dL [facility] LDL Cholesterol Calculated 87 0 - 129 mg/dL [facility] Comment: LDL Cholesterol is the primary guide to therapy: LDL-cholesterol goal in high risk patients is <100 mg/dL and in very high risk patients is <70 mg/dL. VLDL-Cholesterol 15 0 - 30 mg/dL [facility] Cholesterol/HDL Ratio 3.2 0.0 - 5.0 [facility] 08/03/2005 9:11 AM CDT 08/03/2005 9:13 AM CDT Felipe Thomas MD LABORATORY [facility] * TSH W/FREE T4 REFLEX (07/20/2005 11:40 AM CDT) TSH 3.64 0.4 - 5.0 mU/L [facility] 07/20/2005 11:4 0 AM CDT 07/20/2005 11:42 AM CDT Felipe Thomas MD LABORATORY [facility] * A THIN LAYER PAP SCREEN (07/20/2005 12:00 AM CDT) PAP VALENTINA Mosqueda Report Patient Name: MAGALY HINOJOSA MR#: [id number] Specimen #: [id number] Collected: 07/20/2005 Received: 07/21/2005 Reported: 07/22/2005 08:34 Ordering Phy(s): FELIPE THOMAS SPECIMEN/STAIN PROCESS: Pap thin layer prep screening (SurePath) ? Pap-Cyto x 1, Reflex HPV x 1 SOURCE: Cervical, endocervical Pap thin layer prep screening (SurePath) SPECIMEN ADEQUACY: Satisfactory for evaluation. -Transformation zone component present. CYTOLOGIC INTERPRETATION: Negative for Intraepithelial Lesion or Malignancy Electronically signed out by: HUBER Finn (ASCP) Processed and screened at [facility], [facility] CLINICAL HISTORY: Irregular Bleeding Other: spotting, Previous normal pap Date of Last Pap: 3 Other: history previous abnormal 8 years ago/colpo normal paps since that time), TESTING LAB LOCATION: [address] ??[id number] COLLECTION SITE: Client: ??[facility] Location: [facility] (R) COPATH 07/20/2005 07/21/2005 10: 18 AM CDT Felipe Thomas MD LABORATORY COPATH from Last 3 Months or Most Recently Relevant to Health Maintenance Care Teams Spa Therapist Relationship Specialty Start Date End Date Felipe Thomas MD [facility] [address] [place] [address] PCP - General 07/13/05
--- OUTSIDE RECORDS SUMMARY | 2023-11-07 12:36 | XMS_ITS | Encounter Summary ---
Author Organization [place] Address [address] [place] [address]. [place] [address] Care Team Providers Care Template Reproduction Technician Name Role Phone Nicanor Thomas MD Primary Care Provider Reason for Referral * Consultation (Routine: Next available opening) - Pending Review Specialty Diagnoses / Procedures Referred By Paolo t Referred To Contact Genetics, Clinical Diagnoses ALS (amyotrophic lateral sclerosis) (H) Yemi Bacon MD [address] [place] [address] [id number] [place] [address] Referral ID Status Reason Start Date Expiration Date V isits Requested Visits Authorized [id number] Pending Review 11/04/2023 11/03/2024 1 1 Question Answer Reason for Referral: Neuromuscular Scheduling Instructions: [facility] will call you to coordinate your care as prescribed by your provider. If you don't hear from a rental representative within 2 business days, please call [phone]. Additional Information: ALS panel - Lisset Quiros please Comments We will make every effort to schedule with your recommended provider. However, to minimize your waiting time for the appointment, we may offer an appointment with an alternative provider. Please be aware that coverage of these services is subject to the terms and limitations of your health insurance plan. Call member services at your health plan with any benefit or coverage questions. [facility] will call you to coordinate your care as prescribed by your provider. If you don't hear from a rental representative within 2 business days, please call [phone]. * Med Therapy Management (Routine: Next available opening) - Authorized Specialty Diagnoses / Procedures Referred By Paolo llanos Referred To Contact Pharmacist Diagnoses ALS (amyotrophic lateral sclerosis) (H) Yemi Bacon MD [address] [facility] [id number] [place] [address] Referral ID Status Reason Start Date Expiration Date V isits Requested Visits Authorized [id number] Authorized 11/04/2023 11/03/2024 1 1 Question Answer Type of MTM: Specialty Specialty: Neurology Course of Action: Other Reason for Referral: radicava and Nuedexta - Natacha Puchalla please Comments The [facility] Medication Therapy Management department will contact you to schedule an appointment. You may also schedule the appointment by calling or toll-free at . This service is designed to help you get the most from your medications. A specially trained Pharmacist will work closely with you and your providers to solve any questions, concerns, issues or problems related to your medications. Please bring all of your prescription and non-prescription medications (such as vitamins, cpbp-lbr-xkhivcb medications, and herbals) or a detailed medication list to your appointment. If you have a glucose meter or other home monitoring information, please also bring this to your appointment (i.e. blood glucose log, blood pressure log, pain log, etc.). Reason for Visit * Reason Comments Consult New ALS/MOTOR NEURON * Consultation (Routine) - Pending Review Specialty Diagnoses / Procedures Referred By Paolo llanos Referred To Contact Neurology Diagnoses Acquired amyotrophic lateral sclerosis (H) Lizandro López MD [address] [place] [address] Referral ID Status Reason Start Date Expiration Date V isits Requested Visits Authorized [id number] Pending Review 10/27/2023 10/26/2024 1 1 Encounter Details Date Type Department Care Team ([facility] st Contact Info) Description 11/02/2023 1:30 PM CDT Office Visit [facility] Neurology Clinic [place] [address] [facility] [address] [place] [phone] Yemi Bacon MD [address] [facility] [id number] [place] [address] ALS (amyotrophic lateral sclerosis) (H) (Primary Dx); Acquired amyotrophic lateral sclerosis (H) Social History Tobacco Use Types Packs/Day Years [...] PM CDT Temperature - - Respiratory Rate - - Oxygen Saturation 100% 11/02/2023 2:01 PM CDT Inhaled Oxygen Concentration - - Weight 60.5 kg (133 lb 4.8 oz) 11/02/2023 2:01 P M CDT Height 168.9 cm (5' 6.5) 11/02/2023 2:01 PM CDT Body Mass Index 21.19 11/02/2023 2:01 PM CDT documented in this encounter Patient Instructions * Patient Instructions* Yemi Bacon MD - 11/02/2023 1:30 PM CDT I agree with the diagnosis of ALS, or possibly a restricted form known as bulbar palsy. We discussed the diagnostic process, prognosis, and management. Recommendations are as follows: Our pharmacist will reach out to you to discuss Nuedexta and Radicava. Our genetic counselor will arrange a video visit, followed by genetic testing. We will arrange a return visit to our clinic. I agree with your seeing an fruit or nut grower. One more blood test; you can have [facility] at [facility] [place] [facility]. Please call Keli @ [phone] for questions or concerns during regular business hours. For a more efficient way to communicate, use [employer] and address the message to your physician. Remember, MyChart is only read during business hours. Do not leave urgent messages on [employer] or [employer]. If situation is urgent, contact the Neurology Clinic @ [phone] and ask to speak to a Triage Nurse or Call 911 or visit an Emergency Department. Please call your pharmacy if you need a medication refill. They will send us an electronic message. documented in this encounter Progress Notes * Yemi Bacon MD - 11/02/2023 1:30 PM CDT Magaly Hinojosa is a 58 year old woman who has observed dysphagia, initially for water, and a change in the quality of her speech. Symptoms were first observed in December 2022, though in her view herspeech has stabilized after declining initially and her dysphagia has resolved. She denies cognitive or behavioral symptoms. She denies significant muscle cramps, fasciculations, weakness, clumsiness, or impaired gait. She does endorse modest weight loss without loss of appetite. She does not smokeand drinks alcohol infrequently. She is not a . A three generation family history was reviewed today and is positive for Parkinson's disease but negative for other neurodegenerative or neuromuscular disorders. Today's vital signs: BP 114/75 Pulse 83 Ht 1.689 m (5' 6.5) Wt 60.5 kg (133 lb 4.8 oz) SpO2 100% BMI 21.19 kg/m?? Today's neuromuscular examination: General Neuro Exam Frontotemporal spectrum disorder: no Eye movements: Normal Sensation: Normal Cerebellar function: Normal NM Exam: Cranial Atrophy Fasciculations Upper face: Negative Negative Lower face: Negative Negative Tongue: Positive Positive Facial weakness: no facial weakness Tongue movements: normal Tongue weakness: mild Jaw jerk: hyperactive Speech: dysarthria Pseudobulbar affect: absent Comment: Moderate scalloping of tongue Modest fasciculations at rest Mild slowing of speech Mild spastic component NM Exam: Axial Neck flexion weakness: moderate Neck extension weakness: none Trunk LMN findings NM Exam: Upper Extremities Right Left Atrophy: Negative Negative Fasciculations: Negative Negative Muscle tone: normal normal Rapid alt. movements: normal normal Reflexes Right Left Biceps: increased increased Brachioradialis: increased increased Triceps: increased increased Allred: right Allred reflex present left Allred reflex present Strength Right Left * Indicates a recommended field Shoulder abduction*: 5 5 Elbow flexion: 5 5 Elbow extension*: 5 5 Wrist extension*: 5 5 Finger extension: 5 5 Finger flexion: 5 5 Abductor pollicis brevis: 4 4 First dorsal interosseous*: 4 4 Abductor digiti minimi: Comment: NM Exam: Lower Extremities Right Left Atrophy: Negative Fasciculations: Negative Muscle tone: normal normal Rapid alt. movements: normal slow Reflexes Right Left Patellar: increased increased Achilles: increased increased Plantar: normal normal Strength Right Left * Indicates a recommended field Hip flexion*: 5 5 Hip extension: 5 5 Hip adduction: 5 5 Hip abduction: 5 5 Knee extension*: 5 5 Knee flexion: 5 5 Ankle dorsiflexion*: 5 5 Ankle plantar flexion: 5 5 Ankle inversion: Ankle eversion: Toe extension: Toe flexion: Normal gait: yes Able to stand on heels: yes Able to stand on toes: yes Comment: Mild relative slowing of RRMs left foot Difficulty standing on heels Abdominal reflexes absent Able to stand from supine without difficulty Today's functional outcome measures and pulmonary function studies: ALSFRS-R Total Score 47 FVC Lab Results Component Value Date 311/02/2023 I personally reviewed her electrodiagnostic studies and imaging studies. 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 We discussed the diagnostic process, prognosis, and management at length today. Patient instructions, copied from patient instructions: Our pharmacist will reach out to you to discuss Nuedexta and Radicava. Our genetic counselor will arrange a video visit, followed by genetic testing. We will arrange a return visit to our clinic. I agree with your seeing an fruit or nut grower. One more blood test; you can have it done at any [facility] clinic. [MuSK Ab; MG is not explained by the EMG findings nor the strained quality of her speech, but tongue fasciculations can be seen in this condition]. Yemi Bacon M.D. 100 minutes spent on the date of the encounter on chart review, history and examination, documentation and further activities as noted above. The longitudinal plan of care for ALS as documented were addressed during this visit. Due to the added complexity in care, I will continue to support Magaly in the subsequent management and with ongoing continuity of care. documented in this encounter Procedure Notes * Yemi Bacon MD - 11/02/2023 1:30 PM CDT Images from the original note were not included. [facility] Electrodiagnostic Laboratory Department of Neurology Test Date: 11/02/2023 Patient: Shara Lucas : 05/16/1964 Physician: Yemi Bacon MD Sex: Female AGE: 59 year Ref Phys: Lucas Jeannette DO ID#: [id number] Manufacturing Engineering Intern: Gary Parrish History and Examination: Techniques: Motor conduction studies were done with surface recording electrodes. Sensory conduction studies were performed with surface electrodes, unless indicated otherwise by (n), designating the use of subdermal recording electrodes. Temperature was monitored and recorded throughout the study. Upper extremities were maintained at a temperature of 32 degrees Centigrade or higher. EMG was done with a concentric needle electrode. Results: All nerve conduction studies (as indicated in the following tables) were within normal limits. All F Wave latencies were within normal limits. All examined muscles (as indicated in the following table) showed no evidence of electrical instability. Interpretation: Comment: Yemi Bacon MD Board Certified in Clinical Neurophysiology and Neuromuscular Medicine Nerve Conduction Studies Motor Sites Latency Amplitude Neg. Amp Diff Segment Distance Velocity Neg. Dur Neg Area Diff Temperature Comment Site (ms) Norm (mV) Norm (%) cm m/s Norm (ms) (%) (??C) Left Fibular (EDB) Motor Ankle 4.3 < 6.0 3.8 - Ankle-EDB 8 6.3 31.6 Bel Fib Head 11.5 - 3.6 - -5 Bel Fib Head-Ankle 35 49 > 38 6.4 -4 31.5 Pop Fossa 13.4 - 3.5 - -3 Pop Fossa-Bel Fib Head 9.5 50 > 38 6.4 -2 31.4 Left Tibial (AHB) Motor Ankle 4.3 < 6.5 10.3 > 5.0 Ankle-AHB 8 7.2 31.9 Knee 13.6 - 7.8 - -24 Knee-Ankle 40 43 > 38 8.1 -14 31.6 F-Wave Sites Min F-Lat Max-Min F-Lat Mean F-Lat Site (ms) (ms) (ms) Left Tibial F-Wave Ankle 54.2 6.4 - Sensory Sites Onset Lat Peak Lat Neg Peak - Start Amp Amp (P-P) Segment Distance Velocity Temperature Comment Site ms (ms) (??V) Norm (??V) cm m/s Norm (??C) Left Superficial Fibular Sensory Lower Leg-Ankle 2.8 3.5 11 > 3 9 Lower Leg-Ankle 12.5 45 > 38 31.3 Left Sural Sensory Calf-Lat Mall 3.0 3.8 16 > 5 16 Calf-Lat Mall 14 47 > 38 31.3 Electromyography Side Muscle Ins Act Fibs/PSW Fasc HF Amp Dur Poly Recrt Int Pat Left Tib Anterior Nml None Nml 0 Nml Nml 0 Nml Nml Left Gastroc MH Nml None Nml 0 Nml Nml 0 Nml Nml Left Vastus Lat Nml None Nml 0 Nml Nml 0 Nml Nml Left Add Longus Nml None Nml 0 Nml Nml 0 Nml Nml Left Iliopsoas Nml None Nml 0 Nml Nml 0 Nml Nml Left Biceps Fem SH Nml None Nml 0 Nml Nml 0 Nml Nml Left Gluteus Med Nml None Nml 0 Nml Nml 0 Nml Nml Left L3 Parasp Nml None Nml 0 Left S1 Parasp Nml None Nml 0 NCS Waveforms: Motor Sensory F-Wave documented in this encounter Nursing Notes * Chirag Fernando CMA - 11/02/2023 1:30 PM CDT New ALS/MOTOR NEURON Chirag Fernando CMA documented in this encounter Plan of Treatment Upcoming Encounters Date Type Department Care Team (Late st Contact Info) Description 11/10/2023 1:00 PM CDT Office Visit [facility] Neurology Clinic [address]rd [place] [phone] Yemi Bacon MD [address] [place] [address] [id number] [place] [address] Scheduled Orders Name Type Priority Associated Diagnoses Orde r Schedule Muscle-Specific Kinase Antibody Screen with Reflex to Titer Lab Routine ALS (amyotrophic lateral sclerosis) (H) Expected: 11/04/2023 (Approximate), Expires: 11/03/2024 Scheduled Referrals Name Type Priority Associated Diagnoses Orde r Schedule Med Therapy Management Referral Referral Routine: Next available opening ALS (amyotrophic lateral sclerosis) (H) Ordered: 11/04/2023 Adult Genetics & Metabolism [facility] [facility] Referral Referral Routine: Next available opening ALS (amyotrophic lateral sclerosis) (H) Expected: 11/04/2023 (Approximate), Expires: 11/03/2024 documented as of this encounter Visit Diagnoses Diagnosis ALS (amyotrophic lateral sclerosis) (H)- Primary Amyotrophic lateral sclerosis Acquired amyotrophic lateral sclerosis (H) documented in this encounter Care Teams Template Reproduction Technician Relationship Specialty Start Date End Date Nicanor Thomas MD [facility] [address] [address] PCP - General 07/13/05 documented as of this encounter
--- OUTSIDE RECORDS SUMMARY | 2023-11-07 12:36 | XMS_ITS | Encounter Summary ---
Author Organization [facility] Address [address] [place] [address] Care Team Providers Care Raw Mill Operator Name Role Phone Unavailable Primary Care Provider Unavailabl e Encounter Details Date Type Department Care Team (Late st Contact Info) Description 10/28/2023 Orders Only Pharmacy Prior Auth [facility] [phone] Chel Snyder Social History Tobacco Use Types Packs/Day Years Used Date Smoking Tobacco: Never Smokeless Tobacco: Never Alcohol Use Standard Drinks/Week Comments Yes 5 (1 standard drink = 0.6 oz pur e alcohol) [facility] Utilities Answer Date Recorded In the past 12 months has th e electric, gas, oil, or water company [...] your living situation today? I have a [facility] place to live 10/22/2023 Sex and [...]
--- OUTSIDE RECORDS SUMMARY | 2023-11-07 12:36 | XMS_ITS | Encounter Summary ---
Author Organization [facility] Address [address] [place] [address]. [place] [address] Care Team Providers Care Pharmacy Director Name Role Phone Nicanor Thomas MD Primary Care Provider Encounter Details Date Type Department Care Team (Late Contact Info) Description 10/28/2023 Orders Only [facility] Neurology [address] [address] Irma Batista LPN Muscle weakness (generalized) (Primary Dx) Social History Tobacco Use Types Packs/Day Years [...] Description 11/10/2023 1:00 PM CDT Office Visit [facility] Neurology [address] [address] Yemi Bacon MD [address] [place] [address] [id number] [place], [place] [address] documented as of this encounter Results * Pulmonary Function Test (11/02/2023 12:50 PM CDT) FVC-Pred 3.14 L [facility] FVC-Pre 3.29 L [facility] FVC-%Pred-Pre 104 % [facility] FEV1-Pre 2.67 L [facility] FEV1-%Pred-Pre 107 % [facility] [id number] 80 % [facility] [id number] 81 % [facility] FEFMax-Pred 6.63 L/sec [facility] FEFMax-Pre 5.47 L/sec [facility] FEFMax-%Pred-Pr e 82 % [facility] [id number] 2.27 L/sec [facility] [id number] 2.74 L/sec [facility] [id number]-%Pred-P re 120 % [facility] ExpTime-Pre 5.71 sec [facility] FIFMax-Pre 2.04 L/sec [facility] MEP-Pre 70 cmH2O [facility] MIP-Pre -50 cmH2O [facility] [id number] 81 % [facility] [id number] 82 % [facility] 11/02/2023 12:5 0 PM CDT Narrative [facility] - 11/03/2023 6:37 PM CDT The FVC, FEV1, FEV1/FVC ratio and HHU31-98% are within normal limits. IMPRESSION: Normal Spirometry. MIP and MEP are reduced. ?This interpretation has been electronically signed: ??RIOS CHRISTIANSON 11/03/2023 ??06:09:20 PM? Yemi Bacon MD PFT ORDERABLES [facility] documented in this encounter Visit Diagnoses Diagnosis Muscle weakness (generalized)- Primary Muscle weakness (generalized) documented in this encounter Care Teams Pharmacy Director Relationship Specialty Start Date End Date Nicanor Thomas MD [facility] [address] [place] [address] PCP - General 07/13/05 documented as of this encounter
--- OUTSIDE RECORDS SUMMARY | 2023-11-07 12:36 | XMS_ITS | Referral Summary ---
Author Organization [facility] Address [address] [place] [address] Care Team Providers Care Care Management Coordinator Name Role Phone Unavailable Primary Care Provider Unavailabl e Source Comments Patient records contain information from all sites at [facility]. For routine questions regarding patient records, call [phone] during business hours, M-F 8:00 AM - 5:00 PM Central Time. Record requests for emergency care only can be directed to [phone] at any time.[facility] Encounters Date Type Department Care Team Description 11/07/2023 Clinical Communication Department of Cardiovascular Diseases in [address] [phone] Tyson Carreon M.D. Med Question 10/28/2023 Orders Only Pharmacy Prior Auth RO [phone] Chel Snyder 10/27/2023 Orders Only Pharmacy Prior Auth RO [phone] Margy Teran 10/26/2023 Clinical Communication Department of Neurology in [place], [place] [address] [place] [address] Tyson Carreon M.D. Rx Prior Authorization (Radicava ) 10/25/2023 3:30 PM CDT Office Visit Department of Neurology in [address] [phone] Tyson Carreon M.D. Sclerosis Lateral Amyotrophic (HCC) (Primary Dx) Discharge Disposition: Home or Self Care 10/19/2023 7:11 AM CDT - 10/19/2023 11:59 PM CDT Hospital Encounter Department of Neurology in [place], [place] [address] [place] [address] Tyson Carreon M.D. Other Motor Neuron Disease (HCC) Discharge Disposition: Home or Self Care 10/18/2023 Clinical Communication Department of Neurology in [address] [phone] Tyson Carreon M.D. Follow-up Orders (MRI in [place] ) 10/17/2023 2:11 PM CDT - 10/17/2023 11:59 PM CDT Hospital Encounter Department of Laboratory Medicine in [address] [phone] Tyson Carreon M.D. Other Motor Neuron Disease (HCC) Discharge Disposition: Home or Self Care 10/17/2023 1:00 PM CDT Office Visit Department of Neurology in [address] [phone] Tyson Carreon M.D. Sclerosis Lateral Amyotrophic (HCC) (Primary Dx); Other Motor Neuron Disease (HCC); Anterior Horn Cell Disease (HCC) Discharge Disposition: Home or Self Care 10/12/2023 Clinical Communication Department of Neurology in [address] [phone] Tyson Carreon M.D. Order Request (F/u clinical [...] capsule by mouth every other day. Active ALPRAZolam XR (Xanax XR) 0.5 mg 24 hr tablet Take 0.5 mg by mouth as needed for anxiety. Active ALPRAZolam (Xanax) 0.5 mg tablet Take 0.5 mg by mouth as needed for anxiety. Active edaravone (Radicava ORS Starter Kit Susp) 105 mg/5 mL suspension Take 5 mL (105 mg total) by mouth daily before morning meal. Take for 14 days followed by a 14-day drug free period. 70 mL 10/27/2023 Active riluzole (Rilutek) 50 mg tablet Take 1 tablet (50 mg total) by mouth 2 (two) times a day. Indication: ALS 60 tablet 11 10/27/2023 Active riluzole (Rilutek) 50 mg tablet Take 1 tablet (50 mg total) by mouth 2 (two) times a day. 60 tablet 11 10/25/2023 10/27/2023 Discontinued edaravone (Radicava ORS Starter Kit Susp) 105 mg/5 mL suspension Take 5 mL (105 mg total) by mouth daily before morning meal. Take for 14 days followed by a 14-day drug free period. 70 mL 10/25/2023 10/27/2023 Discontinued edaravone (Radicava ORS) 105 mg/5 mL suspension Take 5 mL (105 mg total) by mouth daily before morning meal. Take for 10 days out of a 14-day period followed by a 14-day drug free period. To be started after initial month. 50 mL 10/25/2023 10/27/2023 Discontinued riluzole (Rilutek) 50 mg tablet Take 1 tablet (50 mg total) by mouth 2 (two) times a day. Indication: ALS 60 tablet 10/27/2023 10/27/2023 Discontinued Active Problems No known active problems Social History Tobacco Use Types Packs/Day Years Used Date Smoking Tobacco: Never Smokeless Tobacco: Never Tobacco Cessation:Counseling Given: Not Answered Alcohol Use Standard Drinks/Week Comments Yes 5 (1 standard drink = 0.6 oz pur e alcohol) [facility] Utilities Answer Date Recorded In the past 12 months has [employer], [employer], oil, or water [employer] threatened to shut off services in your [...] your living situation today? I have a [facility] place to live 10/22/2023 Sex and Gender Information Value Date Recorded Sex Assigned at Female 10/22/2023 5:48 PM CDT Gender Identity Female 10/22/2023 5:48 PM CDT Sexual Orientation Straight 10/22/2023 5: 48 PM CDT Last Filed Vital Signs Vital Sign Reading [...] 10/17/2023 1:02 PM CDT Plan of Treatment Not on file Procedures Procedure Name Priority Date/Time Associated Diagnosis Comments OUTSIDE MR NEURO Routine 10/19/2023 3:35 PM CDT OUTSIDE MR NEURO Routine 10/19/2023 3:30 PM CDT EMG Routine 10/19/2023 7:11 AM CDT Other Motor Neuron Disease (HCC) LYME AB MODIFIED 2-TIER W/REFLEX, S Routine 10/17/2023 11:00 PM CDT Other Motor Neuron Disease (HCC) NEUROFILAMENT LIGHT CHAIN, P Routine 10/17/2023 2:49 PM CDT Other Motor Neuron Disease (HCC) GANGLIOSIDE AB PANEL, S Routine 10/17/19 24 2:46 PM CDT Other Motor Neuron Disease (HCC) MYELOPATHY, AUTOIMM/PARANEO, SERUM Routine 10/17/2023 2:46 PM CDT Other Motor Neuron Disease (HCC) NV ORGANIC ACID 1 QUANT 2 Routine 10/17/2023 2:43 PM CDT NV T4 FREE Routine 10/17/2023 2:43 PM [...] PM CDT Other Motor Neuron Disease (HCC) HEXOSAMINIDASE A AND TOTAL, WBC Routine 10/17/2023 2:43 PM CDT Other Motor Neuron Disease (HCC) COPPER, S Routine 10/17/2023 2:43 PM CDT Other Motor Neuron Disease (HCC) CREATINE KINASE (CK), S Routine 10/17/19 24 2:43 PM CDT Other Motor Neuron Disease (HCC) VITAMIN E, S Routine 10/17/2023 2:39 PM CDT Other Motor Neuron Disease (HCC) from Last 3 Months Results * MR head/brain wo/w con-Outside MR Neuro (10/19/2023 3:35 PM CDT) Only the most recent of2 resultswithin the time period is included. 10/19/2023 3:30 PM CDT Narrative IIMS - 10/19/2023 5:13 PM CDT This order has been created and auto-finalized to support the import of outside images. If available, original interpretation can be found on the Media Tab in Chart Review, in Document Viewer, as an image in QREADS or as an Addendum. If a re-interpretation or overread is required please follow defined workflow.?? Provider Not In System IMG MRI PROCEDURE S IIMS NA * EMG (10/19/2023 7:11 AM CDT) 10/19/2023 7:30 AM CDT Narrative [facility] EMG - 10/19/2023 3:21 PM CDT Table formatting from the original result was not included. 19-Oct-2023 ? Electromyography ? Final Report Study Number: 1 EMG Newborn Hearing Screener: Kylie Alcocer 127 or [phone] Referred by: TYSON CARREON (127 or [phone]) Referred for: Query bulbar onset ALS Referral Code: ?057 RX: 057 SUMMARY: Prior to starting the procedure, the patient's identity was verified, pertinent available records were reviewed, the nature of the procedure was explained, the appropriate sites of the exam were confirmed directly with the patient, and a pre-procedure pause was performed for final verification of all of the above. ?? Nerve conduction studies of the right upper and lower limb were normal. ??Needle evaluation revealed fasciculation potentials in the cervical, thoracic, lumbosacral and cranial myotomes with rare fibrillation potentials noted at the FDI and T6 paraspinals. ??There was reduced recruitment of mildly long duration high amplitude motor unit potentials noted at the tibialis anterior, first dorsal interosseous and in the cranial myotome. ??There were occasional varying motor unit potentials noted in the cranial myotome. CLINICAL INTERPRETATION: Abnormal study. ??The electrodiagnostic findings are in keeping with a mild/early chronic neurogenic process affecting motor neurons or their axons primarily in the cranial myotome with mild changes in the thoracic and distal lumbosacral and cervical myotomes. Alberto Alcocer (127 or [phone])/ACV NERVE CONDUCTIONS ??Record Rep ?? Normal ??Normal Distal Normal F-Wave F-Wave Temp Nerve Type Site Stim Side Amp Amp CV CV Lat Lat Lat Est (??C) Fibular Motor EDB ??R 3.8 (> 2.0) 48 (> 41) 4.6 (< 6.6) 50.6 50.4 29.6 Sural Sensory Ankle ??R 10 (> 6.0) 43 (> 40) 3.8 (< 4.5) ?? 29.7 Ulnar Motor ADM ??R 7.5 (> 6.0) 64 (> 51) 2.9 (< 3.6) 24.2 22.6 31.6 Median Sensory Dig II ??R 32 (> 15.0) 58 (> 56) 3.4 (< 3.6) ?? 31.3 NEEDLE EMG ??Ins Spont ??MUP ??Recruitment ??Duration ??Amplitude ??Phases ?? Muscle Side Act Fib Fasc Normal Activ Reduced Rapid Long Short High Low % Turns First dorsal interosseous R INC +/- ++ ----- ??+ ??+ ? Deltoid R INC 0 + NL ? Triceps brachii R NL 0 0 NL ? T10 paraspinal R INC 0 +/- NL ? T6 paraspinal R INC + + ----- ??+ ? Vastus medialis R NL 0 + NL ? Gastrocnemius (medial head) R INC 0 + NL ? Tibialis anterior R INC 0 + ----- ??+ ??+ ? Genioglossus R ?----- ??+ ??+ ?25% ++ Comment: varying Orbicularis marciano R NL 0 0 NL ? Comment: occ varying Sternocleidomastoid R INC 0 + ----- ??+ ??++ ??+ ??50% ++ Comment: varying This interpretation has been electronically signed: Kylie Alcocer M.D. at 10/19/2023 3:22:55 PM CDT Procedure Note Kylie Alcocer M.D. - 10/19/2023 19-Oct-2023 Electromyography Final Report Study Number: 1 EMG Newborn Hearing Screener: Kylie Alcocer 127 or [phone] Referred by: TYSON CARREON (127 or [phone]) Referred for: Query bulbar onset ALS Referral [...] axons primarily in the cranial myotome with mildchanges in the thoracic and distal lumbosacral and cervical myotomes. Alberto Alcocer (127 or [phone])/ACV NERVE CONDUCTIONS Record Rep Normal Normal Distal [...] electronically signed: Kylie Alcocer M.D. at 10/19/2023 3:22:55 PM CDT Tyson Carreon M.D. NEUROLOGY ORDERABLES Performing Organization Address City/[facility] Co de Phone Number EMG * Lyme Ab Modified 2-Tier w/Reflex, Serum (10/17/2023 11:00 PM CDT) [facility] Lyme Ab Modified 2-Tier w/Reflex, S Negative [...] M.D. LAB MICROBIOLOGY - B LOOD ORDERABLES Performing Organization Address City/[facility] Co de Phone Number [facility] [address] [place] [address], [facility] ECLR [facility] in [address] [address] * (ABNORMAL) Neurofilament Light Chain (NfL) (10/17/2023 2:49 PM CDT) Pathologist [facility] Neurofilament Light Chain, P 70.7(H) <=25.4 pg/mL 10/19/2023 3:29 PM CDT [facility] Comment: ----ADDITIONAL INFORMATION---- The testing method is a digital immunoassay for the quantitative determination of NfL in plasma manufactured by [employer] and performed on the Cellartis-X analyzer. Values obtained with different methods may be different and cannot be used interchangeably. This test was developed and its performance characteristics determined by [facility] in a manner consistent with CLIA requirements. This test has not been cleared or approved by the U.S. Food and Drug Administration. Blood (Blood, Venous) 10/17/2023 2:49 PM CDT 10/18/2023 8:38 AM CDT Tyson Carreon M.D. LAB BLOOD NON ADD-ON [facility] [address] [place] [address] [facility] [address] [place] [address] [place] [address] * Myelopathy, Autoimmune/Paraneoplastic Evaluation (10/17/2023 2:46 PM CDT) Pathologist [facility] Autoimmune Myelopathy Interp, S see below 10/24/2023 5:13 PM CDT DTL Comment: No informative autoantibodies were detected in this evaluation. However, a negative result does not exclude autoimmune myelopathy, idiopathic or paraneoplastic. Sensitivity and specificity of antibody testing are enhanced by testing both serum and CSF. IFA Notes None. 10/24/2023 5:13 PM CDT DTL Amphiphysin Ab, S Negative Negative 024 5:13 PM CDT DTL Comment: ----ADDITIONAL INFORMATION---- This test was developed and its performance characteristics determined by [facility] in a manner consistent with CLIA requirements. This test has not been cleared or approved by the U.S. Food and Drug Administration. AGNA-1, S Negative Negative 10/24/2023 5:13 PM CDT DTL Comment: ----ADDITIONAL INFORMATION---- This test was developed and its performance characteristics determined by [facility] in a manner consistent with CLIA requirements. This test has not been cleared or approved by the U.S. Food and Drug Administration. NAEEM-1, S Negative Negative 10/24/2023 5:13 PM CDT DTL Comment: ----ADDITIONAL INFORMATION---- This test was developed and its performance characteristics determined by [facility] in a manner consistent with CLIA requirements. This test has not been cleared or approved by the U.S. Food and Drug Administration. NAEEM-2, S Negative Negative 10/24/2023 5:13 PM CDT DTL Comment: ----ADDITIONAL INFORMATION---- This test was developed and its performance characteristics determined by [facility] in a manner consistent with CLIA requirements. This test has not been cleared or approved by the U.S. Food and Drug Administration. NAEEM-3, S Negative Negative 10/24/2023 5:13 PM CDT DTL Comment: ----ADDITIONAL INFORMATION---- This test was developed and its performance characteristics determined by [facility] in a manner consistent with CLIA requirements. This test has not been cleared or approved by the U.S. Food and Drug Administration. AP3B2 IFA, S Negative Negative 10/24/2023 5:13 PM CDT DTL Comment: ----ADDITIONAL INFORMATION---- This test was developed and its performance characteristics determined by [facility] in a manner consistent with CLIA requirements. This test has not been cleared or approved by the U.S. Food and Drug Administration. CRMP-5-IgG Western Blot, S Negative Negative 10/24/2023 5:13 PM CDT DTL Comment: ----ADDITIONAL INFORMATION---- This test was developed and its performance characteristics determined by [facility] in a manner consistent with CLIA requirements. This test has not been cleared or approved by the U.S. Food and Drug Administration. DPPX Ab CBA, S Negative Negative 10/24/2023 5:13 PM CDT DTL Comment: ----ADDITIONAL INFORMATION---- This test was developed and its performance characteristics determined by [facility] in a manner consistent with CLIA requirements. This test has not been cleared or approved by the U.S. Food and Drug Administration. JOSE-B-R Ab CBA, S Negative Negative 2023 5:13 PM CDT DTL Comment: ----ADDITIONAL INFORMATION---- This test was developed and its performance characteristics determined by [facility] in a manner consistent with CLIA requirements. This test has not been cleared or approved by the U.S. Food and Drug Administration. GAD65 Ab Assay, S 0.00 <=0.02 nmol/L 10/24/2023 5:13 PM CDT DTL Comment: ----ADDITIONAL INFORMATION---- This test was developed and its performance characteristics determined by [facility] in a manner consistent with CLIA requirements. This test has not been cleared or approved by the U.S. Food and Drug Administration. GFAP IFA, S Negative Negative 10/24/2023 5:13 PM CDT DTL Comment: ----ADDITIONAL INFORMATION---- This test was developed and its performance characteristics determined by [facility] in a manner consistent with CLIA requirements. This test has not been cleared or approved by the U.S. Food and Drug Administration. mGluR1 Ab IFA, S Negative Negative 10/24/19 24 5:13 PM CDT DTL Comment: ----ADDITIONAL INFORMATION---- This test was developed and its performance characteristics determined by [facility] in a manner consistent with CLIA requirements. This test has not been cleared or approved by the U.S. Food and Drug Administration. MOG FACS, S Negative Negative 10/24/2023 5:13 PM CDT DTL Comment: ----ADDITIONAL INFORMATION---- This test was developed and its performance characteristics determined by [facility] in a manner consistent with CLIA requirements. This test has not been cleared or approved by the U.S. Food and Drug Administration. NIF IFA, S Negative Negative 10/24/2023 5:13 PM CDT DTL Comment: ----ADDITIONAL INFORMATION---- This test was developed and its performance characteristics determined by [facility] in a manner consistent with CLIA requirements. This test has not been cleared or approved by the U.S. Food and Drug Administration. NMO/AQP4 FACS, S Negative Negative 10/24/19 24 5:13 PM CDT DTL Comment: ----ADDITIONAL INFORMATION---- This test was developed and its performance characteristics determined by [facility] in a manner consistent with CLIA requirements. This test has not been cleared or approved by the U.S. Food and Drug Administration. Neurochondrin IFA, S Negative Negative 10/24/2023 5:13 PM CDT DTL Comment: ----ADDITIONAL INFORMATION---- This test was developed and its performance characteristics determined by [facility] in a manner consistent with CLIA requirements. This test has not been cleared or approved by the U.S. Food and Drug Administration. WATER SUPPLY TECHNICIAN-1, S Negative Negative 10/24/2023 5:13 PM CDT DTL Comment: ----ADDITIONAL INFORMATION---- This test was developed and its performance characteristics determined by [facility] in a manner consistent with CLIA requirements. This test has not been cleared or approved by the U.S. Food and Drug Administration. WATER SUPPLY TECHNICIAN-2, S Negative Negative 10/24/2023 5:13 PM CDT DTL Comment: ----ADDITIONAL INFORMATION---- This test was developed and its performance characteristics determined by [facility] in a manner consistent with CLIA requirements. This test has not been cleared or approved by the U.S. Food and Drug Administration. Septin-7 IFA, S Negative Negative 4 5:13 PM CDT DTL Comment: ----ADDITIONAL INFORMATION---- This test was developed and its performance characteristics determined by [facility] in a manner consistent with CLIA requirements. This test has not been cleared or approved by the U.S. Food and Drug Administration. TRIM46 Ab IFA, S Negative Negative 10/24/19 24 5:13 PM CDT DTL Comment: ----ADDITIONAL INFORMATION---- This test was developed and its performance characteristics determined by [facility] in a manner consistent with CLIA requirements. This test has not been cleared or approved by the U.S. Food and Drug Administration. Blood (Blood, Venous) 10/17/2023 2:46 PM CDT 10/18/2023 10:15 AM CDT Tyson Carreon M.D. LAB BLOOD ADD-ON [facility] [address] [place] [address], [facility] DTL [address] [facility] [address] [place] [address] * Ganglioside Antibody Panel (10/17/2023 2:46 PM CDT) IgG Monos. GM1 Negative Negative 10/25/2023 2:11 PM CDT DTL Comment: ----ADDITIONAL INFORMATION---- This test was developed and its performance characteristics determined by [facility] in a manner consistent with CLIA requirements. This test has not been cleared or approved by the U.S. Food and Drug Administration. IgM Monos. GM1 Negative Negative 10/25/2023 2:11 PM CDT DTL Comment: ----ADDITIONAL INFORMATION---- This test was developed and its performance characteristics determined by [facility] in a manner consistent with CLIA requirements. This test has not been cleared or approved by the U.S. Food and Drug Administration. IgG Asialo. GM1 Negative Negative 4 2:11 PM CDT DTL Comment: ----ADDITIONAL INFORMATION---- This test was developed and its performance characteristics determined by [facility] in a manner consistent with CLIA requirements. This test has not been cleared or approved by the U.S. Food and Drug Administration. IgM Asialo. GM1 Negative Negative 4 2:11 PM CDT DTL Comment: ----ADDITIONAL INFORMATION---- This test was developed and its performance characteristics determined by [facility] in a manner consistent with CLIA requirements. This test has not been cleared or approved by the U.S. Food and Drug Administration. IgG Disialo. GD1b Negative Negative 024 2:11 PM CDT DTL Comment: ----ADDITIONAL INFORMATION---- This test was developed and its performance characteristics determined by [facility] in a manner consistent with CLIA requirements. This test has not been cleared or approved by the U.S. Food and Drug Administration. IgM Disialo. GD1b Negative Negative 024 2:11 PM CDT DTL Comment: ----ADDITIONAL INFORMATION---- This test was developed and its performance characteristics determined by [facility] in a manner consistent with CLIA requirements. This test has not been cleared or approved by the U.S. Food and Drug Administration. Blood (Blood, Venous) 10/17/2023 2:46 PM CDT 10/18/2023 10:15 AM CDT Tyson Carreon M.D. LAB BLOOD NON ADD-ON [facility] [address] [place] [address], [facility] DTL [address] [place] [address] * Quantitative M-protein Study (10/17/2023 2:43 PM [...] developed and its performance characteristics determined by [facility] in a manner consistent with CLIA requirements. This test has not been cleared or approved by the U.S. Food and Drug Administration. Blood (Blood, Venous) 10/17/2023 2:43 PM CDT 10/18/2023 6:28 AM CDT Narrative [facility] - 10/19/2023 8:50 AM CDT Specimen Information: Specimen ID: [id number] Specimen Type: Blood Specimen Collection Start Date: 10/17/2023 11:00 PM Specimen Received Date: 10/18/2023 ??6:28 AM Specimen ID: [id number] Specimen Type: Blood Specimen Collection Start Date: 10/17/2023 ??2:43 PM Specimen Received Date: 10/18/2023 ??7:09 AM Tyson Carreon M.D. LAB BLOOD ADD-ON [facility] [address] [place] [address] [facility] [address] [place] [address] [facility] [address] [place] [address] [place] [address] * T4 (Thyroxine), Free, Serum (10/17/2023 2:43 PM CDT) T4 (Thyroxine), Free, S 0.9 0.9 - 1.7 ng/dL 10/17/2023 3:57 PM CDT RDWG Blood 10/17/2023 2:43 PM CDT 10/17/2023 2:49 PM CDT Tyson Carreon M.D. LAB BLOOD ADD-ON Performing Organization Address [facility] Co de Phone Number [facility] [address] [place] [phone], [facility] RDWG [facility] in [place] [address] [place] [phone] * Methylmalonic Acid (MMA), Quantitative, Serum (10/17/2023 2:43 PM CDT) Methylmalonic Acid, QN, S 0.22 <=0.40 nmol/mL 10/20/2023 8:15 AM CDT DTL Comment: No cellular B-12 deficiency. ----ADDITIONAL INFORMATION---- This test was developed and its performance characteristics determined by [facility] in a manner consistent with CLIA requirements. This test has not been cleared or approved by the U.S. Food and Drug Administration. Blood 10/17/2023 2:43 PM CDT 10/18/2023 1:29 PM CDT Tyson Carreon M.D. LAB BLOOD NON ADD-ON [facility] [address] [place] [address], [facility] DTL [address] [facility] [address] [place] [address] * Antinuclear Ab [place]ano, S (10/17/2023 2:43 PM CDT) Antinuclear Ab Screen by IFA, S Negative Negative 10/19/2023 8:45 AM CDT ECLR Comment:No titer performed, COURT screen is negative. Blood (Blood, Venous) 10/17/2023 2:43 PM CDT 10/17/2023 9:02 PM CDT Tyson Carreon M.D. LAB BLOOD NON ADD-ON Performing Organization Address City/[facility]/ZIP Co de Phone Number [facility] [address] [place] [address], [facility] ECLR [address] [place] [phone] * (ABNORMAL) Thyroid Function [place] (10/17/2023 2:43 PM CDT) [facility] TSH, Sensitive 10.3(H) 0.3 - 4.2 mIU/L 10/17/2023 3:35 PM CDT R[facility] Blood (Blood, Venous) 10/17/2023 2:43 PM CDT 10/17/2023 2:49 PM CDT Tyson Carreon M.D. LAB BLOOD ADD-ON [facility] [address] [place] [address], [place] RDWG [facility] in [place] [address] [place] [address] * Pernicious Anemia [place] (10/17/2023 2:43 PM CDT) Pathologist [facility] Vitamin B12 Assay, S 248 180 - 914 ng/L 10/18/2023 11:55 AM CDT [facility] Comment:B-12 <400; MMA test was performed. Blood (Blood, Venous) 10/17/2023 2:43 PM CDT 10/18/2023 8:35 AM CDT Narrative [facility] - 10/18/2023 11:55 AM CDT Specimen Information: Specimen ID: [id number] Specimen Type: Blood Specimen Collection Start Date: 10/17/2023 ??2:43 PM Specimen Received Date: 10/18/2023 ??8:35 AM Specimen ID: [id number] Specimen Type: Blood Specimen Collection Start Date: 10/17/2023 ??2:43 PM Specimen Received Date: 10/18/2023 ??8:52 AM Tyson Carreon M.D. LAB BLOOD NON ADD-ON [facility] [address] [place] [address] [facility] [address] [place] [address] * Hexosaminidase A and Total Hexosaminidase, Leukocytes (10/17/2023 2:43 PM CDT) [facility] Hexosaminidase Total, WBC 23.9 16.4 - 36.2 nmol/min /mg 10/21/2023 2:17 PM CDT DTL Hexosaminidase Percent A, WBC 64 63 - 75 % 10/21/2023 2:17 PM CDT DTL Reviewed by Coreen Angel, PhD 10/21/2023 2:17 PM CDT DTL Interpretation *NEGATIVE* In this sample, total hexosaminidase activity and percent hexosaminidase A are normal. These results indicate this individual is NOT affected with or a carrier of Yao-Sachs disease or Sandhoff disease. Please note that a small percentage (<0.5%) of Yao-Sachs disease carriers may exhibit normal hexosaminidase A activity and will not be detected by this method. In addition, patients with or carriers of the B1 or AB variants of Yao-Sachs disease will not be detected. If this patient shows symptoms of late-onset Yao-Sachs disease (>= 2 years), consider ruling out the B1 variant (MCL test MUGS). Please contact the [employer] platform consultant or genetic counselor senior telecommunications consultant ( ) if you have any questions. 10/21/2023 2:17 PM CDT DTL Comment: ----ADDITIONAL INFORMATION---- Heat Inactivation, Fluorometric This test was developed and its performance characteristics determined by [facility] in a manner consistent with CLIA requirements. This test has not been cleared or approved by the U.S. Food and Drug Administration. Blood (Blood, Peripheral Draw) 10/17/2023 2:43 PM CDT 10/18/2023 7:40 AM CDT Tyson Carreon M.D. LAB GENETIC TESTING [facility] [address] [place] [address], [facility] DTL [address] [facility] [address] [place] [address] * Cryopreservation for Molecular Genetic Studies (10/17/2023 [...] is not a DNA banking service. If intermediate card tender, guaranteed specimen storage is required, DNA banking [...] M.D. LAB GENETIC TESTING Performing Organization Address City/[facility]/ZIP Co de Phone Number [facility] [address] [place] [address], [facility] DTL [address] [facility] [address] [place] [address] * (ABNORMAL) Thyroperoxidase (TPO) Antibodies (10/17/2023 2:43 PM CDT) Thyroperoxidase Ab, S 125.9(H) <34.0 IU/mL 10/18/2023 3:45 AM CDT ECLR Blood 10/17/2023 2:43 PM CDT 10/17/2023 9:04 PM CDT Tyson Carreon M.D. LAB BLOOD ADD-ON Performing Organization Address City/[facility]/ZIP Co de Phone Number [facility] [address] [place] [address], [facility] ECLR [place] [address] * Copper (10/17/2023 2:43 PM CDT) Copper, S 115 77 - 206 mcg/dL 10/18/2023 10:42 AM CDT [facility] Comment: ----ADDITIONAL INFORMATION---- This test was developed and its performance characteristics determined by [facility] in a manner consistent with CLIA requirements. This test has not been cleared or approved by the U.S. Food and Drug Administration. Blood (Blood, Venous) 10/17/2023 2:43 PM CDT 10/17/2023 9:48 PM CDT Tyson Carreon M.D. LAB BLOOD NON ADD-ON [facility] [address] [place] [address] [facility] [address] [place] [address] * Phosphorus Inorganic (10/17/2023 2:43 PM CDT) Phosphorus (Inorganic), P 3.0 2.5 - 4.5 mg/dL 10/17/2023 3:17 PM CDT [facility] Blood (Blood, Venous) 10/17/2023 2:43 PM CDT 10/17/2023 2:49 PM CDT Tyson Carreon M.D. LAB BLOOD ADD-ON Performing Organization Address [facility] Co de Phone Number [facility] [address] [place] [address], [facility] [place] [address] [place] [phone] * (ABNORMAL) Parathyroid Hormone (PTH) (10/17/2023 2:43 PM CDT) Parathyroid Hormone (PTH), S 74(H) 15 - 65 pg/mL 10/17/2023 3:27 PM CDT [facility] Comment: Biotin has been identified by the despatching and receiving clerk as a potential interfering substance. Higher concentrations of biotin may be found in multivitamins, hair/nail supplements, and workout supplements. If the result does not match clinical observations, repeat testing after patient refrains from the use of supplements for at least 12 hours. Blood (Blood, Venous) 10/17/2023 2:43 PM CDT 10/17/2023 2:49 PM CDT Tyson Carreon M.D. LAB BLOOD ADD-ON Performing Organization Address City/[facility]/ZIP Co de Phone Number [facility] [address] [facility] [place] [address], [facility] [place] [address] [place] [address] * Creatinine with Estimated GFR (10/17/2023 2:43 PM CDT) Creatinine 0.78 0.59 - 1.04 mg/dL 10/17/2023 3:17 PM CDT [facility] Estimated GFR (eGFR) 87 >=60 mL/min/BSA 10/17/2023 3:17 PM CDT [facility] Comment: Estimated GFR calculated using the 2020 CKD_EPI creatinine equation. Blood (Blood, Venous) 10/17/2023 2:43 PM CDT 10/17/2023 2:49 PM CDT Tyson Carreon M.D. LAB BLOOD ADD-ON [facility] [place] [address], [facility] [place] [address] [facility] [place] [address] * CK (Creatine Kinase) (10/17/2023 2:43 PM CDT) Creatine Kinase, P 163 26 - 192 U/L 10/17/2023 3:17 PM CDT [facility] Blood (Blood, Venous) 10/17/2023 2:43 PM CDT 10/17/2023 2:49 PM CDT Tyson Carreon M.D. LAB BLOOD ADD-ON [facility] [address] [place] [address], [facility] [place] [address] [place] [address] * Calcium, Total (10/17/2023 2:43 PM CDT) Calcium, Total, P 9.3 8.6 - 10.0 mg/dL 10/17/2023 3:17 PM CDT [facility] Blood (Blood, Venous) 10/17/2023 2:43 PM CDT 10/17/2023 2:49 PM CDT Tyson Carreon M.D. LAB BLOOD ADD-ON Performing Organization Address City/[facility]/ZIP Co de Phone Number [facility] [address] [place] [address], [facility] [place] [address] [place] [address] * Vitamin E Level (10/17/2023 2:39 PM CDT) A-Tocopherol, Vitamin E 13.6 5.5 - 17.0 mg/L 10/19/2023 8:25 AM CDT [facility] Comment: ----ADDITIONAL INFORMATION---- This test was developed and its performance characteristics determined by [facility] in a manner consistent with CLIA requirements. This test has not been cleared or approved by the U.S. Food and Drug Administration. Blood (Blood, Venous) 10/17/2023 2:39 PM CDT 10/18/2023 11:23 AM CDT Tyson Carreon M.D. LAB BLOOD NON ADD-ON Performing Organization Address City/[facility]/ZIP Co de Phone Number [facility] SUPPORT [place] [address] [place] [address] [facility] [address] [place] [address] from Last 3 Months
--- OUTSIDE RECORDS SUMMARY | 2023-11-07 12:36 | XMS_ITS | Clinical Summary ---
Author Organization [facility] Address [address] [place] [address] Care Team Providers Care Television Journalist Name Role Phone Unavailable Primary Care Provider Unavailabl e Source Comments Patient records contain information from all sites at [facility]. For routine questions regarding patient records, call [phone] during business hours, M-F 8:00 AM - 5:00 PM Central Time. Record requests for emergency care only can be directed to [phone] at any time.[facility] Allergies Active Allergy Reactions Criticality Noted [...] day. Indication: ALS 60 tablet 11 10/27/2023 10/27/2023 Discontinued Active Problems No known active problems Encounters Date Type Department Care Team Description 11/07/2023 Clinical Communication Department of Cardiovascular Diseases in [address] [phone] Tyson Carreon M.D. Med Question 10/28/2023 Orders Only Pharmacy Prior Auth RO [phone] Chel Snyder 10/27/2023 Orders Only Pharmacy Prior Auth RO [phone] Margy Teran 10/26/2023 Clinical Communication Department of Neurology in [place], [place] [address] [place] [address] Tyson Carreon M.D. Rx Prior Authorization (Radic[facility] ) 10/25/2023 3:30 PM CDT Office Visit Department of Neurology in [address] [phone] Tyson Carreon M.D. Sclerosis Lateral Amyotrophic (HCC) (Primary Dx) Discharge Disposition: Home or Self Care 10/19/2023 7:11 AM CDT - 10/19/2023 11:59 PM CDT Hospital Encounter Department of Neurology in [place], [place] [address] [place] [address] Tyson Carreon M.D. Other Motor Neuron Disease (HCC) Discharge Disposition: Home or Self Care 10/18/2023 Clinical Communication Department of Neurology in [address] [phone] Tyson Carreon M.D. Follow-up Orders (MRI in [place] ) 10/17/2023 2:11 PM CDT - 10/17/2023 11:59 PM CDT Hospital Encounter Department of Laboratory Medicine in [address] [phone] Tyson Carreon M.D. Other Motor Neuron Disease (HCC) Discharge Disposition: Home or Self Care 10/17/2023 1:00 PM CDT Office Visit Department of Neurology in [address] [phone] Tyson Carreon M.D. Sclerosis Lateral Amyotrophic (HCC) (Primary Dx); Other Motor Neuron Disease (HCC); Anterior Horn Cell Disease (HCC) Discharge Disposition: Home or Self Care 10/12/2023 Clinical Communication Department of Neurology in [address] [phone] Tyson Carreon M.D. Order Request (F/u clinical visit ) from Last 3 Months Social History Tobacco Use Types Packs/Day Years Used Date Smoking Tobacco: Never Smokeless Tobacco: Never Tobacco Cessation:Counseling Given: Not Answered Alcohol Use Standard Drinks/Week Comments Yes 5 (1 standard drink = 0.6 oz pur e alcohol) [facility] Utilities Answer Date Recorded In the past 12 months has [employer], gas, oil, or water [employer] threatened to shut off services in your [...] your living situation today? I have a [facility] place to live 10/22/2023 Sex [...] 10/17/2023 1:02 PM CDT Plan of Treatment Health Maintenance [...] (HCC) GANGLIOSIDE AB PANEL, S Routine 10/17/19 2:46 PM CDT Other Motor Neuron Disease (HCC) MYELOPATHY, AUTOIMM/PARANEO, SERUM Routine 10/17/2023 2:46 PM CDT Other Motor Neuron Disease (HCC) FL ORGANIC ACID 1 QUANT 2 Routine 10/17/2023 2:43 PM CDT FL T4 FREE Routine 10/17/2023 2:43 PM CDT [...] AM CDT) 10/19/2023 7:30 AM CDT Narrative EMG - 10/19/2023 3:21 PM CDT Table formatting from the original result was not included. 19-Oct-2023 ? Electromyography ? Final Report Study Number: 1 EMG Plate Washer: Kylie Alcocer 127 or [phone] Referred by: TYSON CARREON (127 or [phone]) Referred for: Query bulbar onset ALS Referral [...] and cervical myotomes. Alberto Alcocer (127 or [phone])/ACV NERVE CONDUCTIONS ??Record Rep ?? Normal ??Normal [...] Electromyography Final Report Study Number: 1 EMG Plate Washer: Kylie Alcocer 127 or [phone] Referred by: TYSON CARREON (127 or [phone]) Referred for: Query bulbar onset ALS Referral [...] and cervical myotomes. Alberto Alcocer (127 or [phone])/ACV NERVE CONDUCTIONS Record Rep Normal Normal Distal [...] PM CDT Tyson Carreon M.D. NEUROLOGY ORDERABLES [facility] * Lyme Ab Modified 2-Tier w/Reflex, [...] - B LOOD ORDERABLES Performing Organization Address City/[facility] Co de Phone Number [facility] [address] [place] [address] E[place] [address] * (ABNORMAL) Neurofilament Light Chain (NfL) (10/17/2023 2:49 PM CDT) Neurofilament Light Chain, P 70.7(H) <=25.4 pg/mL 10/19/2023 3:29 PM CDT [facility] Comment: ----ADDITIONAL INFORMATION---- The testing method is a digital immunoassay for the quantitative determination of NfL in plasma manufactured by [employer] and performed on the JagTag HD-X analyzer. Values obtained with different methods may be different and cannot be used interchangeably. This test was developed and its performance characteristics determined by [facility] in a manner consistent with CLIA requirements. This test has not been cleared or approved by the U.S. Food and Drug Administration. Blood (Blood, Venous) 10/17/2023 2:49 PM CDT 10/18/2023 8:38 AM CDT Tyson Carreon M.D. LAB BLOOD NON ADD-ON [facility] [address] [place] [address] [facility] [address] [place] [address] * Myelopathy, Autoimmune/Paraneoplastic Evaluation (10/17/2023 2:46 PM CDT) Autoimmune Myelopathy Interp, S see below 10/24/2023 [...] developed and its performance characteristics determined by [facility] in a manner consistent with CLIA requirements. This test has not been cleared or approved by the U.S. Food and Drug Administration. AGNA-1, S Negative Negative 10/24/2023 5:13 PM CDT DTL Comment: ----ADDITIONAL INFORMATION---- This test was developed and its performance characteristics determined by [facility] in a manner consistent with CLIA requirements. This test has not been cleared or approved by the U.S. Food and Drug Administration. NAEEM-1, S Negative Negative 10/24/2023 5:13 PM CDT DTL Comment: ----ADDITIONAL INFORMATION---- This test was developed and its performance characteristics determined by [facility] in a manner consistent with CLIA requirements. This test has not been cleared or approved by the U.S. Food and Drug Administration. NAEEM-2, S Negative Negative 10/24/2023 5:13 PM CDT DTL Comment: ----ADDITIONAL INFORMATION---- This test was developed and its performance characteristics determined by [facility] in a manner consistent with CLIA requirements. This test has not been cleared or approved by the U.S. Food and Drug Administration. NAEEM-3, S Negative Negative 10/24/2023 5:13 PM CDT DTL Comment: ----ADDITIONAL INFORMATION---- This test was developed and its performance characteristics determined by [facility] in a manner consistent with CLIA requirements. This test has not been cleared or approved by the U.S. Food and Drug Administration. AP3B2 IFA, S Negative Negative 10/24/2023 5:13 PM CDT DTL Comment: ----ADDITIONAL INFORMATION---- This test was developed and its performance characteristics determined by [facility] in a manner consistent with CLIA requirements. This test has not been cleared or approved by the U.S. Food and Drug Administration. CRMP-5-IgG Western Blot, S Negative Negative 10/24/2023 5:13 PM CDT DTL Comment: ----ADDITIONAL INFORMATION---- This test was developed and its performance characteristics determined by [facility] in a manner consistent with CLIA requirements. This test has not been cleared or approved by the U.S. Food and Drug Administration. DPPX Ab CBA, S Negative Negative 10/24/2023 5:13 PM CDT DTL Comment: ----ADDITIONAL INFORMATION---- This test was developed and its performance characteristics determined by [facility] in a manner consistent with CLIA requirements. This test has not been cleared or approved by the U.S. Food and Drug Administration. JOSE-B-R Ab CBA, S Negative Negative 2023 5:13 PM CDT DTL Comment: ----ADDITIONAL INFORMATION---- This test was developed and its performance characteristics determined by [facility] in a manner consistent with CLIA requirements. This test has not been cleared or approved by the U.S. Food and Drug Administration. GAD65 Ab Assay, S 0.00 <=0.02 nmol/L 10/24/2023 5:13 PM CDT DTL Comment: ----ADDITIONAL INFORMATION---- This test was developed and its performance characteristics determined by [facility] in a manner consistent with CLIA requirements. This test has not been cleared or approved by the U.S. Food and Drug Administration. GFAP IFA, S Negative Negative 10/24/2023 5:13 PM CDT DTL Comment: ----ADDITIONAL INFORMATION---- This test was developed and its performance characteristics determined by [facility] in a manner consistent with CLIA requirements. This test has not been cleared or approved by the U.S. Food and Drug Administration. mGluR1 Ab IFA, S Negative Negative 10/24/19 24 5:13 PM CDT DTL Comment: ----ADDITIONAL INFORMATION---- This test was developed and its performance characteristics determined by [facility] in a manner consistent with CLIA requirements. This test has not been cleared or approved by the U.S. Food and Drug Administration. MOG FACS, S Negative Negative 10/24/2023 5:13 PM CDT DTL Comment: ----ADDITIONAL INFORMATION---- This test was developed and its performance characteristics determined by [facility] in a manner consistent with CLIA requirements. This test has not been cleared or approved by the U.S. Food and Drug Administration. NIF IFA, S Negative Negative 10/24/2023 5:13 PM CDT DTL Comment: ----ADDITIONAL INFORMATION---- This test was developed and its performance characteristics determined by [facility] in a manner consistent with CLIA requirements. This test has not been cleared or approved by the U.S. Food and Drug Administration. NMO/AQP4 FACS, S Negative Negative 10/24/19 24 5:13 PM CDT DTL Comment: ----ADDITIONAL INFORMATION---- This test was developed and its performance characteristics determined by [facility] in a manner consistent with CLIA requirements. This test has not been cleared or approved by the U.S. Food and Drug Administration. Neurochondrin IFA, S Negative Negative 10/24/2023 5:13 PM CDT DTL Comment: ----ADDITIONAL INFORMATION---- This test was developed and its performance characteristics determined by [facility] in a manner consistent with CLIA requirements. This test has not been cleared or approved by the U.S. Food and Drug Administration. HAZARDOUS MATERIALS ANALYST-1, S Negative Negative 10/24/2023 5:13 PM CDT DTL Comment: ----ADDITIONAL INFORMATION---- This test was developed and its performance characteristics determined by [facility] in a manner consistent with CLIA requirements. This test has not been cleared or approved by the U.S. Food and Drug Administration. HAZARDOUS MATERIALS ANALYST-2, S Negative Negative 10/24/2023 5:13 PM CDT DTL Comment: ----ADDITIONAL INFORMATION---- This test was developed and its performance characteristics determined by [facility] in a manner consistent with CLIA requirements. This test has not been cleared or approved by the U.S. Food and Drug Administration. Septin-7 IFA, S Negative Negative 4 5:13 PM CDT DTL Comment: ----ADDITIONAL INFORMATION---- This test was developed and its performance characteristics determined by [facility] in a manner consistent with CLIA requirements. This test has not been cleared or approved by the U.S. Food and Drug Administration. TRIM46 Ab IFA, S Negative Negative 10/24/19 24 5:13 PM CDT DTL Comment: ----ADDITIONAL INFORMATION---- This test was developed and its performance characteristics determined by [facility] in a manner consistent with CLIA requirements. This test has not been cleared or approved by the U.S. Food and Drug Administration. Blood (Blood, Venous) 10/17/2023 2:46 PM CDT 10/18/2023 10:15 AM CDT Tyson Carreon M.D. LAB BLOOD ADD-ON [facility] [address] [place] [address], [facility] DT [address] [facility] [address] [place] [address] * Ganglioside Antibody Panel (10/17/2023 2:46 PM CDT) IgG Monos. GM1 Negative Negative 10/25/2023 2:11 PM CDT DTL Comment: ----ADDITIONAL INFORMATION---- This test was developed and its performance characteristics determined by [facility] in a manner consistent with CLIA requirements. This test has not been cleared or approved by the U.S. Food and Drug Administration. IgM Monos. GM1 Negative Negative 10/25/2023 2:11 PM CDT DTL Comment: ----ADDITIONAL INFORMATION---- This test was developed and its performance characteristics determined by [facility] in a manner consistent with CLIA requirements. This test has not been cleared or approved by the U.S. Food and Drug Administration. IgG Asialo. GM1 Negative Negative 4 2:11 PM CDT DTL Comment: ----ADDITIONAL INFORMATION---- This test was developed and its performance characteristics determined by [facility] in a manner consistent with CLIA requirements. This test has not been cleared or approved by the U.S. Food and Drug Administration. IgM Asialo. GM1 Negative Negative 4 2:11 PM CDT DTL Comment: ----ADDITIONAL INFORMATION---- This test was developed and its performance characteristics determined by [facility] in a manner consistent with CLIA requirements. This test has not been cleared or approved by the U.S. Food and Drug Administration. IgG Disialo. GD1b Negative Negative 024 2:11 PM CDT DTL Comment: ----ADDITIONAL INFORMATION---- This test was developed and its performance characteristics determined by [facility] in a manner consistent with CLIA requirements. This test has not been cleared or approved by the U.S. Food and Drug Administration. IgM Disialo. GD1b Negative Negative 024 2:11 PM CDT DTL Comment: ----ADDITIONAL INFORMATION---- This test was developed and its performance characteristics determined by [facility] in a manner consistent with CLIA requirements. This test has not been cleared or approved by the U.S. Food and Drug Administration. Blood (Blood, Venous) 10/17/2023 2:46 PM CDT 10/18/2023 10:15 AM CDT Tyson Carreon M.D. LAB BLOOD NON ADD-ON [facility] [address] [place] [address], [facility] DT [address] [facility] [address] [place] [address] * Quantitative M-protein Study (10/17/2023 2:43 PM CDT) Immunoglobulin A (IgA), S 87 61 - 356 mg/dL 10/18/2023 8:16 AM CDT [facility] Immunoglobulin M (IgM), S 187 37 - 286 mg/dL 10/18/2023 8:15 AM CDT [facility] Immunoglobulin G (IgG), S 1220 767 - 1590 mg/dL 10/18/2023 8:15 AM CDT [facility] Therapeutic Antibody Administered? Unspecified 10/18/2023 7:09 AM CDT [facility] Flag, M-protein Isotype Negative Negative 10/19/2023 8:50 AM CDT [facility] QMPTS Interpretation No monoclonal protein detected. 10/19/2023 8:50 AM CDT [facility] Comment: ----ADDITIONAL INFORMATION---- The submitted sample was assayed by five separate immunopurifications for IgG, IgA, IgM, kappa and lambda. ??The result reflects the findings of either no monoclonal protein detected or those monoclonal immunoglobulins that were detected. This test was developed and its performance characteristics determined by [facility] in a manner consistent with CLIA requirements. This test has not been cleared or approved by the U.S. Food and Drug Administration. Blood (Blood, Venous) 10/17/2023 2:43 PM CDT 10/18/2023 6:[address] [facility] - 10/19/2023 8:50 AM CDT Specimen Information: Specimen ID: [id number] Specimen Type: Blood Specimen Collection Start Date: 10/17/2023 11:00 PM Specimen Received Date: 10/18/2023 ??6:28 AM Specimen ID: [id number] Specimen Type: Blood Specimen Collection Start Date: 10/17/2023 ??2:43 PM Specimen Received Date: 10/18/2023 ??7:09 AM Tyson Carreon M.D. LAB BLOOD ADD-ON [facility] [address] [place] [address] Formerly [facility] [address] [place] [address] [facility] [address] [facility] [place] [address] * T4 (Thyroxine), Free, Serum (10/17/2023 2:43 PM CDT) T4 (Thyroxine), Free, S 0.9 0.9 - 1.7 ng/dL 10/17/2023 3:57 PM CDT [facility] Blood 10/17/2023 2:43 PM CDT 10/17/2023 2:49 PM CDT Tyson Carreon M.D. LAB BLOOD ADD-ON [facility] [address] [place] [address], [facility] [place] [address] [place] [address] * Methylmalonic Acid (MMA), Quantitative, Serum (10/17/2023 2:43 PM CDT) Methylmalonic Acid, QN, S 0.22 <=0.40 nmol/mL 10/20/2023 8:15 AM CDT DTL Comment: No cellular B-12 deficiency. ----ADDITIONAL INFORMATION---- This test was developed and its performance characteristics determined by [facility] in a manner consistent with CLIA requirements. This test has not been cleared or approved by the U.S. Food and Drug Administration. Blood 10/17/2023 2:43 PM CDT 10/18/2023 1:29 PM CDT Tyson Carreon M.D. LAB BLOOD NON ADD-ON Performing Organization Address [facility] Co de Phone Number [facility] [address] [place] [address], [facility] DTL [address] [place] [address] * Antinuclear Ab [place], S (10/17/2023 2:43 PM CDT) Antinuclear Ab Screen by IFA, S Negative Negative 10/19/2023 8:45 AM CDT ECLR Comment:No titer performed, COURT screen is negative. Blood (Blood, Venous) 10/17/2023 2:43 PM CDT 10/17/2023 9:02 PM CDT Tyson Carreon M.D. LAB BLOOD NON ADD-ON [facility] [address] [place] [address], [facility] ECLR [address] [facility] [address] [place] [phone] * (ABNORMAL) Thyroid Function [place] (10/17/2023 2:43 PM CDT) TSH, Sensitive 10.3(H) 0.3 - 4.2 mIU/L 10/17/2023 3:35 PM CDT [facility] Blood (Blood, Venous) 10/17/2023 2:43 PM CDT 10/17/2023 2:49 PM CDT Tyson Carreon M.D. LAB BLOOD ADD-ON [facility] [address] [place] [address], [facility] [place] [address] [place] [address] * Pernicious Anemia [place] (10/17/2023 2:43 PM CDT) Pathologist [facility] Vitamin B12 Assay, S 248 180 - 914 ng/L 10/18/2023 11:55 AM CDT [facility] Comment:B-12 <400; MMA test was performed. Blood (Blood, Venous) 10/17/2023 2:43 PM CDT 10/18/2023 8:35 AM CDT Narrative [facility] - 10/18/2023 11:55 AM CDT Specimen Information: Specimen ID: [id number] Specimen Type: Blood Specimen Collection Start Date: 10/17/2023 ??2:43 PM Specimen Received Date: 10/18/2023 ??8:35 AM Specimen ID: [id number] Specimen Type: Blood Specimen Collection Start Date: 10/17/2023 ??2:43 PM Specimen Received Date: 10/18/2023 ??8:52 AM Tyson Carreon M.D. LAB BLOOD NON ADD-ON Performing Organization Address [facility] Co de Phone Number [facility] [address] [place] [address] Formerly [facility] [address] [place] [address] * Hexosaminidase A and Total Hexosaminidase, Leukocytes (10/17/2023 2:43 PM CDT) [facility] Hexosaminidase Total, WBC 23.9 16.4 - [...] test MUGS). Please contact the [employer] building performance consultant or genetic counselor artificial stone setter ( ) if you have any questions. 10/21/2023 2:17 PM CDT DTL Comment: ----ADDITIONAL INFORMATION---- Heat Inactivation, Fluorometric This test was developed and its performance characteristics determined by [facility] in a manner consistent with CLIA requirements. This test has not been cleared or approved by the U.S. Food and Drug Administration. Blood (Blood, Peripheral Draw) 10/17/2023 2:43 PM CDT 10/18/2023 7:40 AM CDT Tyson Carreon M.D. LAB GENETIC TESTING [facility] [address] [place] [address], [facility] DTL 200 [facility] [address] [place] [address] * Cryopreservation for Molecular Genetic Studies (10/17/2023 [...] is not a DNA banking service. If exterminator, guaranteed specimen storage is required, DNA banking [...] M.D. LAB GENETIC TESTING Performing Organization Address City/[facility]/ZIP Co de Phone Number [facility] [address] [place] [address], [facility] DTL 200 [facility] 200 [place] [address] * (ABNORMAL) Thyroperoxidase (TPO) Antibodies (10/17/2023 2:43 PM CDT) Thyroperoxidase Ab, S 125.9(H) <34.0 IU/mL 10/18/2023 3:45 AM CDT E[facility] Blood 10/17/2023 2:43 PM CDT 10/17/2023 9:04 PM CDT Tyson Carreon M.D. LAB BLOOD ADD-ON Performing Organization Address City/[facility]/ZIP Co de Phone Number [facility] [address] [place] [address], [facility] ECLR [facility] [place] [address] [place] [address] * Copper (10/17/2023 2:43 PM CDT) Copper, S 115 77 - 206 mcg/dL 10/18/2023 10:42 AM CDT [facility] Comment: ----ADDITIONAL INFORMATION---- This test was developed and its performance characteristics determined by [facility] in a manner consistent with CLIA requirements. This test has not been cleared or approved by the U.S. Food and Drug Administration. Blood (Blood, Venous) 10/17/2023 2:43 PM CDT 10/17/2023 9:48 PM CDT Tyson Carreon M.D. LAB BLOOD NON ADD-ON Performing Organization Address [facility] Co de Phone Number [facility] [address] [place] [address] [facility] [address] [place] [address] * Phosphorus Inorganic (10/17/2023 2:43 PM CDT) Phosphorus (Inorganic), P 3.0 2.5 - 4.5 mg/dL 10/17/2023 3:17 PM CDT [facility] Blood (Blood, Venous) 10/17/2023 2:43 PM CDT 10/17/2023 2:49 PM CDT Tyson Carreon M.D. LAB BLOOD ADD-ON Performing Organization Address City/[facility]/ZIP Co de Phone Number [facility] [address] [place] [address], [facility]DW[facility] [place] [address] * (ABNORMAL) Parathyroid Hormone (PTH) (10/17/2023 2:43 PM CDT) Parathyroid Hormone (PTH), S 74(H) 15 - 65 pg/mL 10/17/2023 3:27 PM CDT [facility] Comment: Biotin has been identified by the art glass designer as a potential interfering substance. Higher concentrations of biotin may be found in multivitamins, hair/nail supplements, and workout supplements. If the result does not match clinical observations, repeat testing after patient refrains from the use of supplements for at least 12 hours. Blood (Blood, Venous) 10/17/2023 2:43 PM CDT 10/17/2023 2:49 PM CDT Tyson Carreon M.D. LAB BLOOD ADD-ON Performing Organization Address City/[facility]/ZIP Co de Phone Number [facility] [facility] [place] [address], [facility] [place] [address] * Creatinine with Estimated GFR (10/17/2023 2:43 PM CDT) Creatinine 0.78 0.59 - 1.04 mg/dL 10/17/2023 3:17 PM CDT [facility] Estimated GFR (eGFR) 87 >=60 mL/min/BSA 10/17/2023 3:17 PM CDT [facility] Comment: Estimated GFR calculated using the 2020 CKD_EPI creatinine equation. Blood (Blood, Venous) 10/17/2023 2:43 PM CDT 10/17/2023 2:49 PM CDT Tyson Carreon M.D. LAB BLOOD ADD-ON [facility] [address] [place] [address], [facility] [place] [address] [place] [address] * CK (Creatine Kinase) (10/17/2023 2:43 PM CDT) Pathologist [facility] Creatine Kinase, P 163 26 - 192 U/L 10/17/2023 3:17 PM CDT [facility] Blood (Blood, Venous) 10/17/2023 2:43 PM CDT 10/17/2023 2:49 PM CDT Tyson Carreon M.D. LAB BLOOD ADD-ON Performing Organization Address City/[facility]/ZIP Co de Phone Number [facility] [place] [address], [facility] [place] [address] * Calcium, Total (10/17/2023 2:43 PM CDT) [facility] Calcium, Total, P 9.3 8.6 - 10.0 mg/dL 10/17/2023 3:17 PM CDT [facility] Blood (Blood, Venous) 10/17/2023 2:43 PM CDT 10/17/2023 2:49 PM CDT Tyson Carreon M.D. LAB BLOOD ADD-ON [facility] [address] [place] [address], [facility] [place] [address] * Vitamin E Level (10/17/2023 2:39 PM CDT) Pathologist [facility] A-Tocopherol, Vitamin E 13.6 5.5 - 17.0 mg/L 10/19/2023 8:25 AM CDT [facility] Comment: ----ADDITIONAL INFORMATION---- This test was developed and its performance characteristics determined by [facility] in a manner consistent with CLIA requirements. This test has not been cleared or approved by the U.S. Food and Drug Administration. Blood (Blood, Venous) 10/17/2023 2:39 PM CDT 10/18/2023 11:23 AM CDT Tyson Carreon M.D. LAB BLOOD NON ADD-ON [facility] [address] [place] [address] [facility] [address] [place] [address] [place] [address] from Last 3 Months
--- OUTSIDE RECORDS SUMMARY | 2023-11-07 12:36 | XMS_ITS | Encounter Summary ---
Author Organization [facility] Address [address] [place] [address] Care Team Providers Care Ic Designer Custom Name Role Phone Unavailable Primary Care Provider Unavailabl e Encounter Details Date Type Department Care Team (Late st Contact Info) Description 10/27/2023 Orders Only Pharmacy Prior Auth [phone] Margy Teran Social History Tobacco Use Types Packs/Day Years Used Date Smoking Tobacco: Never Smokeless Tobacco: Never Alcohol Use Standard Drinks/Week Comments Yes 5 (1 standard drink = 0.6 oz pur e alcohol) [facility] Utilities Answer Date Recorded In the past 12 months has e electric, gas, oil, or water [employer] threatened to shut off services in your [...] your living situation today? I have a [facility] place to live 10/22/2023 Sex and [...]
--- OUTSIDE RECORDS SUMMARY | 2023-11-07 12:36 | XMS_ITS | Encounter Summary ---
Author Organization [facility] Address [address] [place] [address]. [place] [address] Care Team Providers Care W[facility] Consultant Name Role Phone Nicanor Thomas MD Primary Care Provider Reason for Referral * Consultation (Routine) - Pending Review Specialty Diagnoses / Procedures Referred By Paolo llanos Referred To Contact Neurology Diagnoses Acquired amyotrophic lateral sclerosis (H) Lizandro López MD [address] [place] [address] Referral ID Status Reason Start Date Expiration Date V isits Requested Visits Authorized [id number] Pending Review 10/27/2023 10/26/2024 1 1 Question Answer Reason for Referral: Other Scheduling Instructions: [facility] will call you to coordinate your care as prescribed by your provider. If you don't hear from a sales representative [employer] within 2 business days, please call . My Clinical Question Is: ALS Multidisciplinary Clinic Comments Referral Transcribed by external fax Provider: Lizandro López affiliated with [facility]. [facility]: No If yes was is the [facility] Authorization Number: Phone number: [phone] Fax number: [phone] Please be aware that coverage of these services is subject to the terms and limitations of your health insurance plan. Call member services at your health plan with any benefit or coverage questions. [facility] will call you to coordinate your care as prescribed by your provider. If you don't hear from a sales representative [employer] within 2 business days, please call . Encounter Details Date Type Department Care Team (Late st Contact Info) Description 10/27/2023 Transcribe Orders GENERIC EXTERNAL DATA DEPARTMENT Provider, Generic External Data Acquired amyotrophic lateral sclerosis (H) (Primary Dx) Social History Tobacco Use Types [...] Description 11/10/2023 1:00 PM CDT Office Visit [facility] [address] [place] [id number] Yemi Bacon MD [address] [place] [address] [id number] [place] [address] Scheduled Referrals Name Type Priority Associated Diagnoses Orde r Schedule Adult Neurology Piano Tuner Referral Referral Routine Acquired amyotrophic lateral sclerosis (H) Expected: 10/27/2023 (Approximate), Expires: 10/26/2024 documented as of this encounter Visit Diagnoses Diagnosis Acquired amyotrophic lateral sclerosis (H)- Primary documented in this encounter Care Teams Wound Care Center Consultant Relationship Specialty Start Date End Date Nicanor Thomas MD [facility] [address] [address] PCP - General 07/13/05 documented as of this encounter
--- OUTSIDE RECORDS SUMMARY | 2023-11-07 12:37 | XMS_ITS | Encounter Summary ---
Author Organization [facility] Address [address] [place] [address] Care Team Providers Care Materials Inspector Name Role Phone Unavailable Primary Care Provider Unavailabl e Encounter Details Date Type Department Care Team (Latest Contact Info) Description 10/17/2023 2:11 PM CDT - 10/17/2023 11:59 PM CDT Hospital Encounter Department of Laboratory Medicine in [address] [phone] Lizandro López M.D. [address] [place] [phone] Other Motor Neuron Disease (HCC) Discharge Disposition: [...] PM CDT documented as of this encounter Medications at Time of Discharge Medication Sig Dispensed Refills Start Date End Date levothyroxine (SYNTHROID, LEVOTHROID) 50 mcg tablet Take 1 tablet by mouth daily. venlafaxine XR (EFFEXOR-XR) 37.5 mg 24 hr capsule Take 1 capsule by mouth every other day. documented as of this encounter Plan of Treatment Not on file documented as of this encounter Procedures Procedure [...] PM CDT Other Motor Neuron Disease (HCC) NE T4 FREE Routine 10/17/2023 2:43 PM CDT NE ORGANIC ACID 1 QUANT 2 Routine 10/17/2023 2:43 PM CDT ANTINUCLEAR AB [...] M.D. LAB MICROBIOLOGY - B LOOD ORDERABLES [facility] [address] [place] [address], [facility] ECLR [facility] in [place] [address] [place] [phone] * (ABNORMAL) Neurofilament Light Chain (NfL) (10/17/2023 2:49 PM CDT) Neurofilament Light Chain, P 70.7(H) <=25.4 pg/mL 10/19/2023 3:29 PM CDT [facility] Comment: ----ADDITIONAL INFORMATION---- The testing method is a digital immunoassay for the quantitative determination of NfL in plasma manufactured by [email or web address] and performed on the Ornis-X analyzer. Values obtained with different methods may be different and cannot be used interchangeably. This test was developed and its performance characteristics determined by [facility] in a manner consistent with CLIA requirements. This test has not been cleared or approved by the U.S. Food and Drug Administration. Blood (Blood, Venous) 10/17/2023 2:49 PM CDT 10/18/2023 8:38 AM CDT Lizandro López M.D. LAB BLOOD NON ADD-ON [facility] [place] [address] [place] [address] [facility] [address] [place] [address] * Ganglioside Antibody Panel (10/17/2023 2:46 PM CDT) IgG Monos. GM1 Negative Negative 10/25/2023 2:11 PM CDT DTL Comment: ----ADDITIONAL INFORMATION---- This test was developed and its performance characteristics determined by [facility] in a manner consistent with CLIA requirements. This test has not been cleared or approved by the U.S. Food and Drug Administration. IgM Monos. GM1 Negative Negative 10/25/2023 2:11 PM CDT DTL Comment: ----ADDITIONAL INFORMATION---- This test was developed and its performance characteristics determined by [facility] in a manner consistent with CLIA requirements. This test has not been cleared or approved by the U.S. Food and Drug Administration. IgG Asialo. GM1 Negative Negative 4 2:11 PM CDT DTL Comment: ----ADDITIONAL INFORMATION---- This test was developed and its performance characteristics determined by [facility] in a manner consistent with CLIA requirements. This test has not been cleared or approved by the U.S. Food and Drug Administration. IgM Asialo. GM1 Negative Negative 4 2:11 PM CDT DTL Comment: ----ADDITIONAL INFORMATION---- This test was developed and its performance characteristics determined by [facility] in a manner consistent with CLIA requirements. This test has not been cleared or approved by the U.S. Food and Drug Administration. IgG Disialo. GD1b Negative Negative 024 2:11 PM CDT DTL Comment: ----ADDITIONAL INFORMATION---- This test was developed and its performance characteristics determined by [facility] in a manner consistent with CLIA requirements. This test has not been cleared or approved by the U.S. Food and Drug Administration. IgM Disialo. GD1b Negative Negative 024 2:11 PM CDT DTL Comment: ----ADDITIONAL INFORMATION---- This test was developed and its performance characteristics determined by [facility] in a manner consistent with CLIA requirements. This test has not been cleared or approved by the U.S. Food and Drug Administration. Blood (Blood, Venous) 10/17/2023 2:46 PM CDT 10/18/2023 10:15 AM CDT Lizandro López M.D. LAB BLOOD NON ADD-ON [facility] [address] [place] [address], [facility] DTL [address] [place] [address] * Myelopathy, Autoimmune/Paraneoplastic Evaluation (10/17/2023 2:46 PM [...] its performance characteristics determined by [facility] in a manner consistent with CLIA requirements. This test has not been cleared or approved by the U.S. Food and Drug Administration. AGNA-1, S Negative Negative 10/24/2023 5:13 PM CDT DTL Comment: ----ADDITIONAL INFORMATION---- This test was developed and its performance characteristics determined by [facility] in a manner consistent with CLIA requirements. This test has not been cleared or approved by the U.S. Food and Drug Administration. NAEEM-1, S Negative Negative 10/24/2023 5:13 PM CDT DTL Comment: ----ADDITIONAL INFORMATION---- This test was developed and its performance characteristics determined by [facility] in a manner consistent with CLIA requirements. This test has not been cleared or approved by the U.S. Food and Drug Administration. NAEEM-2, S Negative Negative 10/24/2023 5:13 PM CDT DTL Comment: ----ADDITIONAL INFORMATION---- This test was developed and its performance characteristics determined by [facility] in a manner consistent with CLIA requirements. This test has not been cleared or approved by the U.S. Food and Drug Administration. NAEEM-3, S Negative Negative 10/24/2023 5:13 PM CDT DTL Comment: ----ADDITIONAL INFORMATION---- This test was developed and its performance characteristics determined by [facility] in a manner consistent with CLIA requirements. This test has not been cleared or approved by the U.S. Food and Drug Administration. AP3B2 IFA, S Negative Negative 10/24/2023 5:13 PM CDT DTL Comment: ----ADDITIONAL INFORMATION---- This test was developed and its performance characteristics determined by [facility] in a manner consistent with CLIA requirements. This test has not been cleared or approved by the U.S. Food and Drug Administration. CRMP-5-IgG Western Blot, S Negative Negative 10/24/2023 5:13 PM CDT DTL Comment: ----ADDITIONAL INFORMATION---- This test was developed and its performance characteristics determined by [facility] in a manner consistent with CLIA requirements. This test has not been cleared or approved by the U.S. Food and Drug Administration. DPPX Ab CBA, S Negative Negative 10/24/2023 5:13 PM CDT DTL Comment: ----ADDITIONAL INFORMATION---- This test was developed and its performance characteristics determined by [facility] in a manner consistent with CLIA requirements. This test has not been cleared or approved by the U.S. Food and Drug Administration. JOSE-B-R Ab CBA, S Negative Negative 2023 5:13 PM CDT DTL Comment: ----ADDITIONAL INFORMATION---- This test was developed and its performance characteristics determined by [facility] in a manner consistent with CLIA requirements. This test has not been cleared or approved by the U.S. Food and Drug Administration. GAD65 Ab Assay, S 0.00 <=0.02 nmol/L 10/24/2023 5:13 PM CDT DTL Comment: ----ADDITIONAL INFORMATION---- This test was developed and its performance characteristics determined by [facility] in a manner consistent with CLIA requirements. This test has not been cleared or approved by the U.S. Food and Drug Administration. GFAP IFA, S Negative Negative 10/24/2023 5:13 PM CDT DTL Comment: ----ADDITIONAL INFORMATION---- This test was developed and its performance characteristics determined by [facility] in a manner consistent with CLIA requirements. This test has not been cleared or approved by the U.S. Food and Drug Administration. mGluR1 Ab IFA, S Negative Negative 10/24/19 24 5:13 PM CDT DTL Comment: ----ADDITIONAL INFORMATION---- This test was developed and its performance characteristics determined by [facility] in a manner consistent with CLIA requirements. This test has not been cleared or approved by the U.S. Food and Drug Administration. MOG FACS, S Negative Negative 10/24/2023 5:13 PM CDT DTL Comment: ----ADDITIONAL INFORMATION---- This test was developed and its performance characteristics determined by [facility] in a manner consistent with CLIA requirements. This test has not been cleared or approved by the U.S. Food and Drug Administration. NIF IFA, S Negative Negative 10/24/2023 5:13 PM CDT DTL Comment: ----ADDITIONAL INFORMATION---- This test was developed and its performance characteristics determined by [facility] in a manner consistent with CLIA requirements. This test has not been cleared or approved by the U.S. Food and Drug Administration. NMO/AQP4 FACS, S Negative Negative 10/24/19 24 5:13 PM CDT DTL Comment: ----ADDITIONAL INFORMATION---- This test was developed and its performance characteristics determined by [facility] in a manner consistent with CLIA requirements. This test has not been cleared or approved by the U.S. Food and Drug Administration. Neurochondrin IFA, S Negative Negative 10/24/2023 5:13 PM CDT DTL Comment: ----ADDITIONAL INFORMATION---- This test was developed and its performance characteristics determined by [facility] in a manner consistent with CLIA requirements. This test has not been cleared or approved by the U.S. Food and Drug Administration. OPTOELECTRONIC TECHNICIAN-1, S Negative Negative 10/24/2023 5:13 PM CDT DTL Comment: ----ADDITIONAL INFORMATION---- This test was developed and its performance characteristics determined by [facility] in a manner consistent with CLIA requirements. This test has not been cleared or approved by the U.S. Food and Drug Administration. OPTOELECTRONIC TECHNICIAN-2, S Negative Negative 10/24/2023 5:13 PM CDT DTL Comment: ----ADDITIONAL INFORMATION---- This test was developed and its performance characteristics determined by [facility] in a manner consistent with CLIA requirements. This test has not been cleared or approved by the U.S. Food and Drug Administration. Septin-7 IFA, S Negative Negative 4 5:13 PM CDT DTL Comment: ----ADDITIONAL INFORMATION---- This test was developed and its performance characteristics determined by [facility] in a manner consistent with CLIA requirements. This test has not been cleared or approved by the U.S. Food and Drug Administration. TRIM46 Ab IFA, S Negative Negative 10/24/19 24 5:13 PM CDT DTL Comment: ----ADDITIONAL INFORMATION---- This test was developed and its performance characteristics determined by [facility] in a manner consistent with CLIA requirements. This test has not been cleared or approved by the U.S. Food and Drug Administration. Blood (Blood, Venous) 10/17/2023 2:46 PM CDT 10/18/2023 10:15 AM CDT Lizandro López M.D. LAB BLOOD ADD-ON Performing Organization Address [facility] de Phone Number [facility] [address] DT [address] [place] [address] * Methylmalonic Acid (MMA), Quantitative, Serum (10/17/2023 2:43 PM CDT) Methylmalonic Acid, QN, S 0.22 <=0.40 nmol/mL 10/20/2023 8:15 AM CDT DT Comment: No cellular B-12 deficiency. ----ADDITIONAL INFORMATION---- This test was developed and its performance characteristics determined by [facility] in a manner consistent with CLIA requirements. This test has not been cleared or approved by the U.S. Food and Drug Administration. Blood 10/17/2023 2:43 PM CDT 10/18/2023 1:29 PM CDT Lizandro López M.D. LAB BLOOD NON ADD-ON Performing Organization Address [facility] de Phone Number [facility] [address] [place] [address], [facility] DT 200 [facility] 200 [place] [address] * T4 (Thyroxine), Free, Serum (10/17/2023 2:43 PM CDT) T4 (Thyroxine), Free, S 0.9 0.9 - 1.7 ng/dL 10/17/2023 3:57 PM CDT [facility] Blood 10/17/2023 2:43 PM CDT 10/17/2023 2:49 PM CDT Lizandro López M.D. LAB BLOOD ADD-ON [facility] [address] [place] [address], [facility] RDWG [facility] [address] [phone] * (ABNORMAL) Thyroperoxidase (TPO) Antibodies (10/17/2023 2:43 PM CDT) Thyroperoxidase Ab, S 125.9(H) <34.0 IU/mL 10/18/2023 3:45 AM CDT E[facility] Blood 10/17/2023 2:43 PM CDT 10/17/2023 9:04 PM CDT Lizandro López M.D. LAB BLOOD ADD-ON Performing Organization Address City/[facility]/ZIP Co de Phone Number [facility] [address] [place] [address], [facility] ECLR [place] [address] * Cryopreservation for Molecular Genetic Studies (10/17/2023 [...] is not a DNA banking service. If photographer helper, guaranteed specimen storage is required, DNA banking [...] M.D. LAB GENETIC TESTING Performing Organization Address City/[facility]/ZIP Co de Phone Number [facility] [address] [place] [address], [facility] DTL [address] [facility] [address] [place] [address] * (ABNORMAL) Thyroid Function Shafer (10/17/2023 2:43 PM CDT) TSH, Sensitive 10.3(H) 0.3 - 4.2 mIU/L 10/17/2023 3:35 PM CDT [facility] Blood (Blood, Venous) 10/17/2023 2:43 PM CDT 10/17/2023 2:49 PM CDT Lizandro López M.D. LAB BLOOD ADD-ON Performing Organization Address City/[facility]/ZIP Co de Phone Number [facility] [address] [place] [address], [facility] RDWG [facility] [address] [place] [phone] * Pernicious Anemia Shafer (10/17/2023 2:43 PM CDT) Vitamin B12 Assay, S 248 180 - 914 ng/L 10/18/2023 11:55 AM CDT [facility] Comment:B-12 <400; MMA test was performed. Blood (Blood, Venous) 10/17/2023 2:43 PM CDT 10/18/2023 8:35 AM CDT Narrative [facility] - 10/18/2023 11:55 AM CDT Specimen Information: Specimen ID: [id number] Specimen Type: Blood Specimen Collection Start Date: 10/17/2023 ??2:43 PM Specimen Received Date: 10/18/2023 ??8:35 AM Specimen ID: [id number] Specimen Type: Blood Specimen Collection Start Date: 10/17/2023 ??2:43 PM Specimen Received Date: 10/18/2023 ??8:52 AM Lizandro López M.D. LAB BLOOD NON ADD-ON Performing Organization Address City/[facility]/ZIP Co de Phone Number [facility] [address] [place] [address] [facility] [address] [place] [address] * Creatinine with Estimated GFR (10/17/2023 2:43 PM CDT) Creatinine 0.78 0.59 - 1.04 mg/dL 10/17/2023 3:17 PM CDT [facility] Estimated GFR (eGFR) 87 >=60 mL/min/BSA 10/17/2023 3:17 PM CDT [facility] Comment: Estimated GFR calculated using the 2020 CKD_EPI creatinine equation. Blood (Blood, Venous) 10/17/2023 2:43 PM CDT 10/17/2023 2:49 PM CDT Lizandro López M.D. LAB BLOOD ADD-ON [facility] [address] [place] [address], [facility] RDWG [facility] [address] [place] [address] * Phosphorus Inorganic (10/17/2023 2:43 PM CDT) Phosphorus (Inorganic), P 3.0 2.5 - 4.5 mg/dL 10/17/2023 3:17 PM CDT [facility] Blood (Blood, Venous) 10/17/2023 2:43 PM CDT 10/17/2023 2:49 PM CDT Lizandro López M.D. LAB BLOOD ADD-ON Performing Organization Address [facility] Co de Phone Number [facility] [address] [place] [place] [address], [facility] in [address] [place] [address] * Calcium, Total (10/17/2023 2:43 PM CDT) Calcium, Total, P 9.3 8.6 - 10.0 mg/dL 10/17/2023 3:17 PM CDT [facility] Blood (Blood, Venous) 10/17/2023 2:43 PM CDT 10/17/2023 2:49 PM CDT Lizandro López M.D. LAB BLOOD ADD-ON Performing Organization Address [facility] de Phone Number [facility] [address] [place] [address], [facility] in [address] [phone] * (ABNORMAL) Parathyroid Hormone (PTH) (10/17/2023 2:43 PM CDT) Parathyroid Hormone (PTH), S 74(H) 15 - 65 pg/mL 10/17/2023 3:27 PM CDT [facility] Comment: Biotin has been identified by the regional sales trainer as a potential interfering substance. Higher concentrations of biotin may be found in multivitamins, hair/nail supplements, and workout supplements. If the result does not match clinical observations, repeat testing after patient refrains from the use of supplements for at least 12 hours. Blood (Blood, Venous) 10/17/2023 2:43 PM CDT 10/17/2023 2:49 PM CDT Lizandro López M.D. LAB BLOOD ADD-ON [facility] [address] [address], [facility] RDWG [facility] [address], [place] [address] * Quantitative M-protein Study (10/17/2023 2:43 PM [...] its performance characteristics determined by [facility] in a manner consistent with CLIA requirements. This test has not been cleared or approved by the U.S. Food and Drug Administration. Blood (Blood, Venous) 10/17/2023 2:43 PM CDT 10/18/2023 6:28 AM CDT Narrative [facility] - 10/19/2023 8:50 AM CDT Specimen Information: Specimen ID: [id number] Specimen Type: Blood Specimen Collection Start Date: 10/17/2023 11:00 PM Specimen Received Date: 10/18/2023 ??6:28 AM Specimen ID: [id number] Specimen Type: Blood Specimen Collection Start Date: 10/17/2023 ??2:43 PM Specimen Received Date: 10/18/2023 ??7:09 AM Lizandro López M.D. LAB BLOOD ADD-ON [facility] [address] [place] [address] [facility] [address] [place] [address] [facility] [address] [place] [address] * Antinuclear Ab Shafer, S (10/17/2023 2:43 PM CDT) Pathologist [facility] Antinuclear Ab Screen by IFA, S Negative Negative 10/19/2023 8:45 AM CDT ECL[facility] Comment:No titer performed, COURT screen is negative. Blood (Blood, Venous) 10/17/2023 2:43 PM CDT 10/17/2023 9:02 PM CDT Lizandro López M.D. LAB BLOOD NON ADD-ON [facility] [address] [place] [address], [facility] ECLR [address] [place] [phone] * Hexosaminidase A and Total Hexosaminidase, Leukocytes (10/17/2023 2:43 PM CDT) Pathologist [facility] Hexosaminidase Total, WBC 23.9 16.4 - 36.2 [...] test MUGS). Please contact the [employer] sales and leasing consultant or genetic counselor financial services consultant ( ) if you have any questions. 10/21/2023 2:17 PM CDT DT Comment: ----ADDITIONAL INFORMATION---- Heat Inactivation, Fluorometric This test was developed and its performance characteristics determined by [facility] in a manner consistent with CLIA requirements. This test has not been cleared or approved by the U.S. Food and Drug Administration. Blood (Blood, Peripheral Draw) 10/17/2023 2:43 PM CDT 10/18/2023 7:40 AM CDT Lizandro López M.D. LAB GENETIC TESTING Performing Organization Address City/[facility]/ZIP Co de Phone Number [facility] [address] [place] [address], [facility] DTL 200 [facility] [address] [place] [address] * Copper (10/17/2023 2:43 PM CDT) [facility] Copper, S 115 77 - 206 mcg/dL 10/18/2023 10:42 AM CDT [facility] Comment: ----ADDITIONAL INFORMATION---- This test was developed and its performance characteristics determined by [facility] in a manner consistent with CLIA requirements. This test has not been cleared or approved by the U.S. Food and Drug Administration. Blood (Blood, Venous) 10/17/2023 2:43 PM CDT 10/17/2023 9:48 PM CDT Lizandro López M.D. LAB BLOOD NON ADD-ON Performing Organization Address City/[facility]/ZIP Co de Phone Number [facility] [address] [place] [address] [facility] [address] [place] [address] * CK (Creatine Kinase) (10/17/2023 2:43 PM CDT) Creatine Kinase, P 163 26 - 192 U/L 10/17/2023 3:17 PM CDT [facility] Blood (Blood, Venous) 10/17/2023 2:43 PM CDT 10/17/2023 2:49 PM CDT Lizandro López M.D. LAB BLOOD ADD-ON Performing Organization Address City/[facility]/ZIP Co de Phone Number [facility] [address] [place] [address], [facility] RDWG [facility] [address] [place] [phone] * Vitamin E Level (10/17/2023 2:39 PM CDT) Pathologist [facility] A-Tocopherol, Vitamin E 13.6 5.5 - 17.0 mg/L 10/19/2023 8:25 AM CDT [facility] Comment: ----ADDITIONAL INFORMATION---- This test was developed and its performance characteristics determined by [facility] in a manner consistent with CLIA requirements. This test has not been cleared or approved by the U.S. Food and Drug Administration. Blood (Blood, Venous) 10/17/2023 2:39 PM CDT 10/18/2023 11:23 AM CDT Lizandro López M.D. LAB BLOOD NON ADD-ON [facility] SU[facility] [place] [address] [place] [address] [facility] [address] [place] [address] documented in this encounter Visit Diagnoses Diagnosis Other Motor Neuron Disease (HCC) documented in this encounter
--- OUTSIDE RECORDS SUMMARY | 2023-11-07 12:37 | XMS_ITS | Encounter Summary ---
Author Organization [facility] Address [address] [place] [address] Care Team Providers Care Manager Interface Name Role Phone Unavailable Primary Care Provider Unavailabl e Reason for Referral * Outpatient (Routine) - Closed Specialty Diagnoses / Procedures Referred By Paolo llanos Referred To Contact Diagnoses Other Motor Neuron Disease (HCC) Procedures [place] [address] [facility] Referral ID Status Reason Start Date Expiration Date Visits Re quested Visits Authorized [id number] Closed 10/17/2023 10/16/2024 1 1 Reason for Visit * Outpatient (Routine) - Closed Specialty Diagnoses / Procedures Referred By Paolo llanos Referred To Contact Diagnoses Other Motor Neuron Disease (HCC) Procedures [place] [address] [facility] Referral ID Status Reason Start Date Expiration Date Visits Re quested Visits Authorized [id number] Closed 10/17/2023 10/16/2024 1 1 Encounter Details Date Type Department Care Team (Latest Contact Info) Description 10/19/2023 7:11 AM CDT - 10/19/2023 11:59 PM CDT Hospital Encounter Department of Neurology in [place], [place] [address] [place] [phone] Tyson Carreon M.D. [address] [place] [address] Other Motor Neuron Disease (HCC) Discharge Disposition: Home or Self Care Social History Tobacco Use Types Packs/Day Years Used Date Smoking Tobacco: Never Smokeless Tobacco: Never Alcohol Use Standard Drinks/Week Comments Yes 5 (1 standard drink = 0.6 oz pur e alcohol) [facility] Utilities Answer Date Recorded In the past 12 months has e [employer], gas, oil, or water [employer] threatened to shut off services in your [...] your living situation today? I have a [facility] place to live 10/22/2023 Sex and [...] AM CDT Other Motor Neuron Disease (HCC) documented in this encounter Results * EMG (10/19/2023 7:11 AM CDT) 10/19/2023 7:30 AM CDT Narrative EMG - 10/19/2023 3:21 PM CDT Table formatting from the original result was not included. 19-Oct-2023 ? Electromyography ? Final Report Study Number: 1 EMG Electrical Manufacturing Engineer: Kylie Alcocer 127 or [phone] Referred by: TYSON CARREON (127 or [phone]) Referred for: Query bulbar onset ALS Referral [...] and cervical myotomes. Alberto Alcocer (127 or [phone])/ACV NERVE CONDUCTIONS ??Record Rep ?? Normal ??Normal [...] Electromyography Final Report Study Number: 1 EMG Electrical Manufacturing Engineer: Kylie Alcocer 127 or [phone] Referred by: TYSON CARREON (127 or [phone]) Referred for: Query bulbar onset ALS Referral [...] and cervical myotomes. Alberto Alcocer (127 or [phone])/ACV NERVE CONDUCTIONS Record Rep Normal Normal Distal [...] Carreon M.D. NEUROLOGY ORDERABLES Performing Organization Address City/State/[facility] Co de Phone Number EMG documented in this encounter Visit Diagnoses Diagnosis Other Motor Neuron Disease (HCC) documented in this encounter
--- OUTSIDE RECORDS SUMMARY | 2023-11-07 12:37 | XMS_ITS | Encounter Summary ---
Author Organization [facility] Address [address] [place] [address] Care Team Providers Care Cut Off Saw Tender Metal Name Role Phone Unavailable Primary Care Provider Unavailabl e Reason for Referral * Outpatient (Routine) - Closed Specialty Diagnoses / Procedures Referred By Paolo t Referred To Contact Neurology Lizandro López M.D. [address] [place] [address] [facility] Region Referral ID Status Reason Start Date Expiration Date Visits Re quested Visits Authorized [id number] Closed 10/12/2023 04/12/2025 1 1 Reason for Visit * Reason Onset Date Comments Order Request 10/12/2023 F/u clinical vis it Encounter Details Date Type Department Care Team (Latest Contact Info) Description 10/12/2023 Clinical Communication Department of Neurology in [address] [phone] Lizandro López M.D. [address] [place] [phone] Order Request (F/u clinical visit ) Social [...] as of this encounter Plan of Treatment Scheduled Referrals Name Type Priority Associated Diagnoses Orde r Schedule Neurology office visit (clinic) Outpatient Referral Routine Expected: 10/12/2023, Expires: 01/11/2025 documented as of this encounter Visit Diagnoses Not on filedocumented in this encounter
--- OUTSIDE RECORDS SUMMARY | 2023-11-07 12:37 | XMS_ITS | Encounter Summary ---
Author Organization [facility] Address [address] [place] [address] Care Team Providers Care Outboard Motor Tester Name Role Phone Unavailable Primary Care Provider Unavailabl e Reason for Visit * Reason Onset Date Comments Follow-up Orders 10/18/2023 MRI in [facility] Encounter Details Date Type Department Care Team (Latest Contact Info) Description 10/18/2023 Clinical Communication Department of Neurology in [address] [phone] Lizandro López M.D. [address] [place] [phone] Follow-up Orders (MRI in [place] ) Social History Tobacco Use Types Packs/Day Years Used Date Smoking Tobacco: Never Smokeless Tobacco: Never Alcohol Use Standard Drinks/Week Comments Yes 5 (1 standard drink = 0.6 oz pur e alcohol) [facility] Utilities Answer Date Recorded In the past 12 months has [employer], gas, oil, or water [employer] threatened to shut off services in your [...] your living situation today? I have a [facility] to live 10/22/2023 Sex and Gender Information Value Date Recorded Sex Assigned at Female 10/22/2023 5:48 PM CDT Gender Identity Female 10/22/2023 5:48 PM CDT Sexual Orientation Straight 10/22/2023 5: 48 PM CDT documented as of this encounter Miscellaneous Notes * Telephone Encounter - Brunilda Ku - 10/25/2023 4:31 PM CDT ----- Message from Lizandro López M.D. sent at 10/25/2023 2:59 PM CDT ----- Regarding: MRIs Hello This patient's MRIs which are scheduled for November can be cancelled. She got them done elsewhere. Thanks. Rafael López documented in this encounter Plan of Treatment Not on file documented as of this encounter Visit Diagnoses Not on filedocumented in this encounter
--- OUTSIDE RECORDS SUMMARY | 2023-11-07 12:37 | XMS_ITS | Encounter Summary ---
Author Organization [facility] Address [address] [place] [address] Care Team Providers Care Manager Studio Name Role Phone Unavailable Primary Care Provider Unavailabl e Reason for Referral * Medication Prior Authorization - Closed Specialty Diagnoses / Procedures Referred By Paolo llanos Referred To Contact Lizandro Carreon M.D. [address] [place] [address] Referral ID Status Reason Start Date Expiration Date Visits Re quested Visits Authorized [id number] Closed 1 1 * Outpatient (Routine) - Authorized Specialty Diagnoses / Procedures Referred By Contac t Referred To Contact Neurology Diagnoses Sclerosis Lateral Amyotrophic (HCC) Lizandro Carreon M.D. [address] [place] [address] Referral ID Status Reason Start Date Expiration Date V isits Requested Visits Authorized [id number] Authorized 10/26/2023 04/26/2025 1 1 * Outpatient (Routine) - Authorized Specialty Diagnoses / Procedures Referred By Contac t Referred To Contact Speech Language Pathology Diagnoses Sclerosis Lateral Amyotrophic (HCC) Lizandro Carreon M.D. [address] [place] [address] Referral ID Status Reason Start Date Expiration Date Visits Requested Visits Authorized [id number] Authorized Patient Preference 10/26/2023 04/26/2025 1 1 * Outpatient (Routine) - Authorized Specialty Diagnoses / Procedures Referred By Paolo llanos Referred To Contact Respiratory Therapy Diagnoses Sclerosis Lateral Amyotrophic (HCC) Lizandro Carreon M.D. [address] [place] [address] Referral ID Status Reason Start Date Expiration Date V isits Requested Visits Authorized [id number] Authorized 10/26/2023 04/26/2025 1 1 Reason for Visit * Reason Comments motor neuron disease Follow up * Outpatient (Routine) - Closed Specialty Diagnoses / Procedures Referred By Paolo llanos Referred To Contact Neurology Lizandro Carreon M.D. [address] [place] [address] [facility] Region Referral ID Status Reason Start Date Expiration Date Visits Re quested Visits Authorized [id number] Closed 10/17/2023 04/17/2025 1 1 Encounter Details Date Type Department Care Team (Late st Contact Info) Description 10/25/2023 3:30 PM CDT Office Visit Department of Neurology in [address] [phone] Lizandro Carreon M.D. [address] [place] [address] Sclerosis Lateral Amyotrophic (HCC) (Primary Dx) Discharge Disposition: Home or Self Care Social History Tobacco Use Types Packs/Day Years Used Date Smoking Tobacco: Never Smokeless Tobacco: Never Alcohol Use Standard Drinks/Week Comments Yes 5 (1 standard drink = 0.6 oz pur e alcohol) [facility] Utilities Answer Date Recorded In the past 12 months has [employer], gas, oil, or water [employer] threatened to shut off services in your [...] your living situation today? I have a [facility] place to live 10/22/2023 Sex and Gender Information Value Date Recorded Sex Assigned at Female 10/22/2023 5:48 PM CDT Gender Identity Female 10/22/2023 5:48 PM CDT Sexual Orientation Straight 10/22/2023 5: 48 PM CDT documented as of this encounter Progress Notes * Lizandro Carreon M.D. - 10/25/2023 3:30 PM CDT Images from the original note were not included. SUBJECTIVE CHIEF COMPLAINT: follow-up results HISTORY OF PRESENT ILLNESS Magaly Hinojosa is a very pleasant 58 y.o. previously healthy female with a history of hypothyroidism who presented with chronic progressive dysphagia and dysarthria returning today to discuss results of recent testing. She is accompanied by her . Labs (serum): Neurofilament light chain - increased at 70.7 TSH 10.3, fT4 0.9. TPO abs 125.9 - consistent with Cheko's thyroiditis (known hypothyroidism) Ganglioside antibodies - negative Autoimmune myelopathy panel - negative Lyme ab panel - negative Hexosaminidase activity and percent A - normal CK - normal Vitamin E, copper, vitamin B12, MMA - normal Monoclonal protein - negative COURT - negative PTH - mildly elevated at 74; normal Calcium and phosphorous She underwent EMG in [place] which showed long duration polyphasic varying motor unit potentials of reduced recruitment in bulbar muscles examined, as well as reduced recruitment of mildly long duration motor unit potentials in distal right upper and lower limb muscles with fasciculation potentials present in most muscles examined as well as sparse fibrillation potentials in the right FDI and T6 paraspinal muscles. This was interpreted as in keeping with a mild/early chronic neurogenic process affecting motor neurons or their axons primarily in the cranial myotome. She has had updated MRI of the brain and cervical spinal cord with and without contrast done in [place] and I have reviewed these. Overall these appear normal without brainstem lesion or myelopathy to otherwise suggest an alternative etiology of her symptoms. There is an incidentally noted possible 6 mm left vestibular schwannoma. The following portions of the patient's history were reviewed and updated as appropriate: allergies, current medications, family history, medical history, social history, surgical history and problemlist. ASSESSMENT / PLAN #1 Bulbar-onset amyotrophic lateral sclerosis (ALS) Unfortunately, electrodiagnostic testing confirmed the presence of lower motor neuron changes in multiple segments predominately involving bulbar innervated muscles. Her serum NfL is quite elevated which supports a neurodegenerative disease. There have been significant changes in her neurologic exam now with dysarthria, tongue weakness, and diffusely increased reflexes. Extensive work-up evaluating for potential mimickers of motor neuron disease have been unrevealing. Unfortunately this is strongly consistent with a progressive motor neuron disease, specifically bulbar-onset ALS. She appears to be quite early, but did have very subtle findings approximately 9 months ago including dysphonia and mildly impair vocal cord adduction which were essentially isolated findings at that time. Understandably, Magaly was very upset with this diagnosis which is something she has feared. We briefly discussed the diagnosis. I told her that I would be here as long as needed to discuss the diagnosis, pathophysiology, treatment, prognosis, complications, etc. She asked about prognosis and following this she had to leave the room and was unable to stay longer due to her understandable emotionaldistress. I was able to briefly discuss the most important next steps with her , Jameson, including the gold standard of care being multidisciplinary ALS clinic which she needs to get established with and I could help with a referral. I also told him that it would be very reasonable for her to seek a second opinion from a neuromuscular specialist given the nature of the diagnosis, and place this referral on her behalf if she prefers. If she would like to see a neuromuscular subspecialist in [place], I could expedite this but there are concerns that this is not in their insurance network. I provided Jameson with printed resources regarding the diagnosis of ALS, ALS multidisciplinary clinic, and clinical trials. I recommended to her that she start riluzole and edaravone and will send a prescription to her pharmacy which likely will need to do a prior authorization. Liver enzymes and baseline blood counts should be checked prior to starting riluzole. I will write a letter to her insurance company to try get further coverage of the multiple lab tests we performed to exclude alternative diagnoses (which were out of network at [facility]), as these were medically necessary and also many of labs would have been send-out to [facility] or another tertiary referral center as many of these labs are only performed in select labs around the nation. I am available to Magaly and her , Jameson if they would like to further discuss the diagnosis and next steps, either in clinic or on the phone. I will reach out to Magaly and her again. I will be available for any questions or concerns if they wish. PATIENT EDUCATION The most likely diagnosis is ALS (amyotrophic lateral sclerosis) or Felicia Gehrig's disease. ALS is a disease that is rare with an incidence of 2-4:100,000 yearly. It is primarily a disorder of motor neurons which leads to progressive weakness involving voluntary muscles that control limb movements, speaking, swallowing, and respiration. In general, the life span for the disease is somewhere around t hree years from the onset of symptoms; though, 10% of people live longer than five years, and 5% ofpatients may live longer than ten years. Regarding pathophysiology - it is likely that this is a disorder that can be caused by many different things. One may inherit a predisposition to the disease. There has been some research and speculation of possible viral infections or other environmental toxins that could be related to the diseaseas well; though, to date, we do not have any clear link to one specific mechanism. In about 10-15% of cases, the disorder is genetic or familial. In these cases, there is typically a clear family history of first-degree relatives (parents, brothers, sisters, children) that are affected by the disease. There is an FDA- approved gene therapy, tofersen (Qalsody), which is administered monthly into the spinal fluid via lumbar puncture for those who have ALS due to an SOD1 mutation. Genetic testing and counseling is available. There are three other FDA-approved medications for slowing progression in all people living with ALS, riluzole (Rilutek), edaravone (Radicava), and sodium phenylbutyrate/taurursodiol (Relyvrio). Riluzole has been shown to produce on average 2-3 month survival benefit. It is given at 50 mg twice a day. Liver enzymes and blood counts need to be monitored every three months. Some mild elevations in these enzymes can occur. If this does happen, then the medication can be reduced or discontinued without any serious long-term effect. Other common side effects include tiredness, fatigue, and stomachupset. These are often made better by taking the medication with food. Edaravone has been shown to slow disease by ~30%. It is an oral medication that requires a daily treatment approximately two weeks per month. Sodium phenylbutyrate/taurursodiol is a daily oral solution has been shown to slow thedisease by 2.3 points on the ALS Functional Rating Scale over 6 months. It has a bitter taste and side effects of this medication are primarily related to GI distress. In terms of other types of treatments, most are investigational at this point. We discussed clinical research studies in ALS. [facility] complications - ALS is a disorder that we cannot cure, but we can certainly treat the complications that occur as the disease progresses. Physical therapy, occupational therapy, and evaluation by rehab physicians is crucial throughout the course of the disease as there are a number of modifications and devices that can be used to improve and maintain functionality. Evaluation by speech specialists and communication specialists is important as speech becomes more of a difficulty. Swallowing needs to be monitored closely as well. Most patients can maintain nutrition for some time. When nutrition becomes an issue and patients start losing weight, then we usually try to supplement with high- calorie foods and other supplements. Feeding tubes are also an option. These can be placed toallow patients to maintain their nutrition. In many instances, patients can still take some food bymouth as long as that is deemed safe. Uncontrolled laughing and crying, termed pseudobulbar affect,may occur in people with ALS. dextromethorphan/quinidine (Nuedexta) is FDA-approved for pseudobulbar affect. Regarding breathing, this is something that is monitored periodically. We often check overnight oximetry tests to detect any respiratory compromise from the disease. Things that can be done when breathing becomes a problem include a non-invasive mask called a BiPAP which can be used usually at night to help with breathing. This can also be used during the day. Some patients opt to have aventilator as more of a permanent solution. I would encourage her to be part of the ALSA (www.alsa.org) and the MDA (www.mdausa.org). * Lizandro Carreon M.D. - 10/25/2023 3:30 PM CDT ALSFRS-R scale score: 45 documented in this encounter Miscellaneous Notes * Addendum Note - Lizandro Carreon M.D. - 10/25/2023 3:30 PM CDTAddended by: LIZANDRO CARREON on: 10/26/2023 05:10 PM Modules accepted: Orders * Addendum Note - Lizandro Carreon M.D. - 10/25/2023 3:30 PM CDTAddended by: LIZANDRO CARREON on: 10/27/2023 12:51 PM Modules accepted: Orders documented in this encounter Plan of Treatment Scheduled Orders Name Type Priority Associated Diagnoses Orde r Schedule Hepatic Function Panel Lab Add-On Sclerosis Lateral Amyotrophic (HCC) Expected: 10/25/2023, Expires: 01/24/2025 CBC with Differential, Blood Lab Add-On Sclerosis Lateral Amyotrophic (HCC) Expected: 10/25/2023, Expires: 01/24/2025 documented as of this encounter Visit Diagnoses Diagnosis Sclerosis Lateral Amyotrophic (HCC)- Primary documented in this encounter
--- OUTSIDE RECORDS SUMMARY | 2023-11-07 12:37 | XMS_ITS | Encounter Summary ---
Author Organization [facility] Address [address] [place] [address] Care Team Providers Care Brush Head Maker Name Role Phone Unavailable Primary Care Provider Unavailabl e Reason for Referral * MRI/CAT/PET Scan (Routine) - Pending Review Specialty Diagnoses / Procedures Referred By Contac t Referred To Contact Radiology Diagnoses Other Motor Neuron Disease (HCC) Procedures MR Cervical Spine without and with IV Contrast Tyson Carreon M.D. [address] [place] [address] [facility] Referral ID Status Reason Start Date Expiration Date V isits Requested Visits Authorized [id number] Pending Review 10/18/2023 10/17/2024 1 1 * MRI/CAT/PET Scan (Routine) - Pending Review Specialty Diagnoses / Procedures Referred By Contac t Referred To Contact Radiology Diagnoses Anterior Horn Cell Disease (HCC) Procedures MR Brain without and with IV Contrast Tyson Carreon M.D. [address] [place] [address] [facility] Referral ID Status Reason Start Date Expiration Date V isits Requested Visits Authorized [id number] Pending Review 10/18/2023 10/17/2024 1 1 * Outpatient (Routine) - Closed Specialty Diagnoses / Procedures Referred By Contac t Referred To Contact Neurology Tyson Carreon M.D. [address] [place] [address] [facility] Referral ID Status Reason Start Date Expiration Date Visits Re quested Visits Authorized [id number] Closed 10/17/2023 04/17/2025 1 1 * Speech Pathology (Routine) - Authorized Specialty Diagnoses / Procedures Referred By Contac t Referred To Contact Diagnoses Other Motor Neuron Disease (HCC) Procedures MEDICAL SUPPORT ASSISTANT Speech language evaluate and treat Tyson Carreon M.D. [address] [place] [address] [facility] Referral ID Status Reason Start Date Expiration Date V isits Requested Visits Authorized [id number] Authorized 10/17/2023 10/16/2024 1 1 * Outpatient (Routine) - Closed Specialty Diagnoses / Procedures Referred By Contac t Referred To Contact Diagnoses Other Motor Neuron Disease (HCC) Procedures EMG Tyson Carreon M.D. [address] [place] [address] [facility] Referral ID Status Reason Start Date Expiration Date Visits Re quested Visits Authorized [id number] Closed 10/17/2023 10/16/2024 1 1 Reason for Visit * Reason Comments Dysphagia * Outpatient (Routine) - Closed Specialty Diagnoses / Procedures Referred By Contac t Referred To Contact Neurology Tyson Carreon M.D. [address] [place] [phone] [facility] Referral ID Status Reason Start Date Expiration Date Visits Re quested Visits Authorized [id number] Closed 10/12/2023 04/12/2025 1 1 Encounter Details Date Type Department Care Team ([facility] st Contact Info) Description 10/17/2023 1:00 PM CDT Office Visit Department of Neurology in [place], [place] [address] [place] [phone] Tyson Carreon M.D. [address] [place] [address] Sclerosis Lateral Amyotrophic (HCC) (Primary Dx); Other Motor Neuron Disease (HCC); Anterior Horn Cell Disease (HCC) Discharge Disposition: Home or Self Care Social History Tobacco Use Types Packs/Day Years Used Date Smoking Tobacco: Never Smokeless Tobacco: Never Alcohol Use Standard Drinks/Week Comments Yes 5 (1 standard drink = 0.6 oz pur e alcohol) [facility] Utilities Answer Date Recorded In the past [...] your living situation today? 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 She [...] A and Total Hexosaminidase, Leukocytes Antinuclear Ab [place], S Quantitative M-protein Study Parathyroid Hormone (PTH) Calcium, Total Phosphorus Inorganic Creatinine with Estimated GFR Vitamin E Level Ganglioside Antibody Panel Pernicious Anemia [place] Thyroid Function [place] Cryopreservation for Molecular Genetic Studies Neurology office visit (clinic) MEDICAL SUPPORT ASSISTANT Speech language evaluate and treat EMG Pulmonary [...] Type Priority Associated Diagnoses Orde r Schedule Pulmonary Function Tests PFT Routine Other [...] documented as of this encounter Results * EMG (10/19/2023 7:11 AM CDT) 10/19/2023 7:30 AM CDT Narrative EMG - 10/19/2023 3:21 PM CDT Table formatting from the original result was not included. 19-Oct-2023 ? Electromyography ? Final Report Study Number: 1 EMG Park Warden: Kylie Alcocer 127 or [phone] Referred by: TYSON CARREON (127 or [phone]) Referred for: Query bulbar onset ALS Referral [...] and cervical myotomes. Alberto Alcocer (127 or [phone])/ACV NERVE CONDUCTIONS ??Record Rep ?? Normal ??Normal [...] ??+ ??+ ?25% ++ Comment: varying Orbicularis johana R NL 0 0 NL ? Comment: occ varying Sternocleidomastoid R INC 0 + ----- ??+ ??++ ??+ ??50% ++ Comment: varying This interpretation has been electronically signed: Kylie Alcocer M.D. at 10/19/2023 3:22:55 PM CDT Procedure Note Kylie Alcocer M.D. - 10/19/2023 19-Oct-2023 Electromyography Final Report Study Number: 1 EMG Park Warden: Kylie Alcocer [phone] or [phone] Referred by: TYSON CARREON (127 or [phone]) Referred for: Query bulbar onset ALS Referral [...] and cervical myotomes. Alberto Alcocer (127 or [phone])/ACV NERVE CONDUCTIONS Record Rep Normal Normal Distal [...] + + 25% ++ Comment: varying Orbicularis johana R NL 0 0 NL Comment: occ varying Sternocleidomastoid R INC 0 + ----- + ++ + 50% ++ Comment: varying This interpretation has been electronically signed: Kylie Alcocer M.D. at 10/19/2023 3:22:55 PM CDT Tyson Carreon M.D. NEUROLOGY ORDERABLES EMG * Lyme Ab Modified 2-Tier w/Reflex, [...] - B LOOD ORDERABLES Performing Organization Address [facility] de Phone Number [facility] [address] [place] [address] ECLR [facility] [place] [address] * (ABNORMAL) Neurofilament Light Chain (NfL) (10/17/2023 2:49 PM CDT) Neurofilament Light Chain, P 70.7(H) <=25.4 pg/mL 10/19/2023 3:29 PM CDT [facility] Comment: ----ADDITIONAL INFORMATION---- The testing method is a digital immunoassay for the quantitative determination of NfL in plasma manufactured by [employer] and performed on the Glowforth HD-X analyzer. Values obtained with different methods may be different and cannot be used interchangeably. This test was developed and its performance characteristics determined by [facility] in a manner consistent with CLIA requirements. This test has not been cleared or approved by the U.S. Food and Drug Administration. Blood (Blood, Venous) 10/17/2023 2:49 PM CDT 10/18/2023 8:38 AM CDT Tyson Carreon M.D. LAB BLOOD NON ADD-ON [facility] [address] [facility] [address] [place] [address] [facility] [address] [place] [address] * Ganglioside Antibody Panel (10/17/2023 2:46 PM CDT) IgG Monos. GM1 Negative Negative 10/25/2023 2:11 PM CDT D[facility] Comment: ----ADDITIONAL INFORMATION---- This test was developed and its performance characteristics determined by [facility] in a manner consistent with CLIA requirements. This test has not been cleared or approved by the U.S. Food and Drug Administration. IgM Monos. GM1 Negative Negative 10/25/2023 2:11 PM CDT [facility] Comment: ----ADDITIONAL INFORMATION---- This test was developed and its performance characteristics determined by [facility] in a manner consistent with CLIA requirements. This test has not been cleared or approved by the U.S. Food and Drug Administration. IgG Asialo. GM1 Negative Negative 4 2:11 PM CDT [facility]TL Comment: ----ADDITIONAL INFORMATION---- This test was developed and its performance characteristics determined by [facility] in a manner consistent with CLIA requirements. This test has not been cleared or approved by the U.S. Food and Drug Administration. IgM Asialo. GM1 Negative Negative 4 2:11 PM CDT [facility]TL Comment: ----ADDITIONAL INFORMATION---- This test was developed and its performance characteristics determined by [facility] in a manner consistent with CLIA requirements. This test has not been cleared or approved by the U.S. Food and Drug Administration. IgG Disialo. GD1b Negative Negative 024 2:11 PM CDT DTL Comment: ----ADDITIONAL INFORMATION---- This test was developed and its performance characteristics determined by [facility] in a manner consistent with CLIA requirements. This test has not been cleared or approved by the U.S. Food and Drug Administration. IgM Disialo. GD1b Negative Negative 024 2:11 PM CDT DTL Comment: ----ADDITIONAL INFORMATION---- This test was developed and its performance characteristics determined by [facility] in a manner consistent with CLIA requirements. This test has not been cleared or approved by the U.S. Food and Drug Administration. Blood (Blood, Venous) 10/17/2023 2:46 PM CDT 10/18/2023 10:15 AM CDT Tyson Carreon M.D. LAB BLOOD NON ADD-ON [facility] [address] [place] [address], [facility] DTL 200 [facility] [address] [place] [address] * Myelopathy, Autoimmune/Paraneoplastic Evaluation (10/17/2023 2:46 PM [...] its performance characteristics determined by [facility] in a manner consistent with CLIA requirements. This test has not been cleared or approved by the U.S. Food and Drug Administration. AGNA-1, S Negative Negative 10/24/2023 5:13 PM CDT DTL Comment: ----ADDITIONAL INFORMATION---- This test was developed and its performance characteristics determined by [facility] in a manner consistent with CLIA requirements. This test has not been cleared or approved by the U.S. Food and Drug Administration. NAEEM-1, S Negative Negative 10/24/2023 5:13 PM CDT DTL Comment: ----ADDITIONAL INFORMATION---- This test was developed and its performance characteristics determined by [facility] in a manner consistent with CLIA requirements. This test has not been cleared or approved by the U.S. Food and Drug Administration. NAEEM-2, S Negative Negative 10/24/2023 5:13 PM CDT DTL Comment: ----ADDITIONAL INFORMATION---- This test was developed and its performance characteristics determined by [facility] in a manner consistent with CLIA requirements. This test has not been cleared or approved by the U.S. Food and Drug Administration. NAEEM-3, S Negative Negative 10/24/2023 5:13 PM CDT DTL Comment: ----ADDITIONAL INFORMATION---- This test was developed and its performance characteristics determined by [facility] in a manner consistent with CLIA requirements. This test has not been cleared or approved by the U.S. Food and Drug Administration. AP3B2 IFA, S Negative Negative 10/24/2023 5:13 PM CDT DTL Comment: ----ADDITIONAL INFORMATION---- This test was developed and its performance characteristics determined by [facility] in a manner consistent with CLIA requirements. This test has not been cleared or approved by the U.S. Food and Drug Administration. CRMP-5-IgG Western Blot, S Negative Negative 10/24/2023 5:13 PM CDT DTL Comment: ----ADDITIONAL INFORMATION---- This test was developed and its performance characteristics determined by [facility] in a manner consistent with CLIA requirements. This test has not been cleared or approved by the U.S. Food and Drug Administration. DPPX Ab CBA, S Negative Negative 10/24/2023 5:13 PM CDT DTL Comment: ----ADDITIONAL INFORMATION---- This test was developed and its performance characteristics determined by [facility] in a manner consistent with CLIA requirements. This test has not been cleared or approved by the U.S. Food and Drug Administration. JOSE-B-R Ab CBA, S Negative Negative 2023 5:13 PM CDT DTL Comment: ----ADDITIONAL INFORMATION---- This test was developed and its performance characteristics determined by [facility] in a manner consistent with CLIA requirements. This test has not been cleared or approved by the U.S. Food and Drug Administration. GAD65 Ab Assay, S 0.00 <=0.02 nmol/L 10/24/2023 5:13 PM CDT DTL Comment: ----ADDITIONAL INFORMATION---- This test was developed and its performance characteristics determined by [facility] in a manner consistent with CLIA requirements. This test has not been cleared or approved by the U.S. Food and Drug Administration. GFAP IFA, S Negative Negative 10/24/2023 5:13 PM CDT DTL Comment: ----ADDITIONAL INFORMATION---- This test was developed and its performance characteristics determined by [facility] in a manner consistent with CLIA requirements. This test has not been cleared or approved by the U.S. Food and Drug Administration. mGluR1 Ab IFA, S Negative Negative 10/24/19 5:13 PM CDT DTL Comment: ----ADDITIONAL INFORMATION---- This test was developed and its performance characteristics determined by [facility] in a manner consistent with CLIA requirements. This test has not been cleared or approved by the U.S. Food and Drug Administration. MOG FACS, S Negative Negative 10/24/2023 5:13 PM CDT DTL Comment: ----ADDITIONAL INFORMATION---- This test was developed and its performance characteristics determined by [facility] in a manner consistent with CLIA requirements. This test has not been cleared or approved by the U.S. Food and Drug Administration. NIF IFA, S Negative Negative 10/24/2023 5:13 PM CDT DTL Comment: ----ADDITIONAL INFORMATION---- This test was developed and its performance characteristics determined by [facility] in a manner consistent with CLIA requirements. This test has not been cleared or approved by the U.S. Food and Drug Administration. NMO/AQP4 FACS, S Negative Negative 10/24/19 5:13 PM CDT DTL Comment: ----ADDITIONAL INFORMATION---- This test was developed and its performance characteristics determined by [facility] in a manner consistent with CLIA requirements. This test has not been cleared or approved by the U.S. Food and Drug Administration. Neurochondrin IFA, S Negative Negative 10/24/2023 5:13 PM CDT DTL Comment: ----ADDITIONAL INFORMATION---- This test was developed and its performance characteristics determined by [facility] in a manner consistent with CLIA requirements. This test has not been cleared or approved by the U.S. Food and Drug Administration. STENOTYPE OPERATOR-1, S Negative Negative 10/24/2023 5:13 PM CDT DTL Comment: ----ADDITIONAL INFORMATION---- This test was developed and its performance characteristics determined by [facility] in a manner consistent with CLIA requirements. This test has not been cleared or approved by the U.S. Food and Drug Administration. STENOTYPE OPERATOR-2, S Negative Negative 10/24/2023 5:13 PM CDT DTL Comment: ----ADDITIONAL INFORMATION---- This test was developed and its performance characteristics determined by [facility] in a manner consistent with CLIA requirements. This test has not been cleared or approved by the U.S. Food and Drug Administration. Septin-7 IFA, S Negative Negative 4 5:13 PM CDT DTL Comment: ----ADDITIONAL INFORMATION---- This test was developed and its performance characteristics determined by [facility] in a manner consistent with CLIA requirements. This test has not been cleared or approved by the U.S. Food and Drug Administration. TRIM46 Ab IFA, S Negative Negative 10/24/19 24 5:13 PM CDT DTL Comment: ----ADDITIONAL INFORMATION---- This test was developed and its performance characteristics determined by [facility] in a manner consistent with CLIA requirements. This test has not been cleared or approved by the U.S. Food and Drug Administration. Blood (Blood, Venous) 10/17/2023 2:46 PM CDT 10/18/2023 10:15 AM CDT Tyson Carreon M.D. LAB BLOOD ADD-ON [facility] [address] [place], [place] [id number] [place] [address] 200 [facility] [address] [place] [address] * Cryopreservation for Molecular Genetic Studies (10/17/2023 [...] is not a DNA banking service. If senior pastor, guaranteed specimen storage is required, DNA banking [...] M.D. LAB GENETIC TESTING Performing Organization Address City/[facility]/ZIP Co de Phone Number [facility] [address] [place] [address], [facility] DTL [address] [place] [address] * (ABNORMAL) Thyroid Function [place] (10/17/2023 2:43 PM CDT) [facility] TSH, Sensitive 10.3(H) 0.3 - 4.2 mIU/L 10/17/2023 3:35 PM CDT [facility] Blood (Blood, Venous) 10/17/2023 2:43 PM CDT 10/17/2023 2:49 PM CDT Tyson Carreon M.D. LAB BLOOD ADD-ON [facility] [address] [place] [address], [place] [facility] [place] [address] [place] [address] * Pernicious Anemia [place] (10/17/2023 2:43 PM CDT) Vitamin B12 Assay, S 248 180 - 914 ng/L 10/18/2023 11:55 AM CDT [facility] Comment:B-12 <400; MMA test was performed. Blood (Blood, Venous) 10/17/2023 2:43 PM CDT 10/18/2023 8:35 AM CDT Narrative [facility] - 10/18/2023 11:55 AM CDT Specimen Information: Specimen ID: [id number] Specimen Type: Blood Specimen Collection Start Date: 10/17/2023 ??2:43 PM Specimen Received Date: 10/18/2023 ??8:35 AM Specimen ID: [id number] Specimen Type: Blood Specimen Collection Start Date: 10/17/2023 ??2:43 PM Specimen Received Date: 10/18/2023 ??8:52 AM Tyson Carreon M.D. LAB BLOOD NON ADD-ON [facility] [address] [place] [address] [facility] [address] [place] [address] * Creatinine with Estimated GFR (10/17/2023 2:43 PM CDT) Creatinine 0.78 0.59 - 1.04 mg/dL 10/17/2023 3:17 PM CDT [facility] Estimated GFR (eGFR) 87 >=60 mL/min/BSA 10/17/2023 3:17 PM CDT [facility] Comment: Estimated GFR calculated using the 2020 CKD_EPI creatinine equation. Blood (Blood, Venous) 10/17/2023 2:43 PM CDT 10/17/2023 2:49 PM CDT Tyson Carreon M.D. LAB BLOOD ADD-ON [facility] [address] [place] [address], [facility] RDWG [facility] [place] [address] [address] * Phosphorus Inorganic (10/17/2023 2:43 PM CDT) Phosphorus (Inorganic), P 3.0 2.5 - 4.5 mg/dL 10/17/2023 3:17 PM CDT [facility] Blood (Blood, Venous) 10/17/2023 2:43 PM CDT 10/17/2023 2:49 PM CDT Tyson Carreon M.D. LAB BLOOD ADD-ON [facility] [address] [place] [address], [place] [address], [facility] [address] [place] [address] * Calcium, Total (10/17/2023 2:43 PM CDT) Calcium, Total, P 9.3 8.6 - 10.0 mg/dL 10/17/2023 3:17 PM CDT [facility] Blood (Blood, Venous) 10/17/2023 2:43 PM CDT 10/17/2023 2:49 PM CDT Tyson Carreon M.D. LAB BLOOD ADD-ON [facility] [address] [place] [address], [place] [address], [address] [place] [address] * (ABNORMAL) Parathyroid Hormone (PTH) (10/17/2023 2:43 PM CDT) Parathyroid Hormone (PTH), S 74(H) 15 - 65 pg/mL 10/17/2023 3:27 PM CDT [facility] Comment: Biotin has been identified by the casing in line feeder as a potential interfering substance. Higher concentrations of biotin may be found in multivitamins, hair/nail supplements, and workout supplements. If the result does not match clinical observations, repeat testing after patient refrains from the use of supplements for at least 12 hours. Blood (Blood, Venous) 10/17/2023 2:43 PM CDT 10/17/2023 2:49 PM CDT Tyson Carreon M.D. LAB BLOOD ADD-ON [facility] [address] [place] [address], [facility] RDWG [facility] [place] [address] [place] [address] * Quantitative M-protein Study (10/17/2023 2:43 PM [...] its performance characteristics determined by [facility] in a manner consistent with CLIA requirements. This test has not been cleared or approved by the U.S. Food and Drug Administration. Blood (Blood, Venous) 10/17/2023 2:43 PM CDT 10/18/2023 6:28 AM CDT Narrative [facility] - 10/19/2023 8:50 AM CDT Specimen Information: Specimen ID: [id number] Specimen Type: Blood Specimen Collection Start Date: 10/17/2023 11:00 PM Specimen Received Date: 10/18/2023 ??6:28 AM Specimen ID: [id number] Specimen Type: Blood Specimen Collection Start Date: 10/17/2023 ??2:43 PM Specimen Received Date: 10/18/2023 ??7:09 AM Tyson Carreon M.D. LAB BLOOD ADD-ON [facility] [address] [place] [address] [facility] [address] [place] [address] [place] [address] [place] [address] * Antinuclear Ab [place], S (10/17/2023 2:43 PM CDT) Pathologist [facility] Antinuclear Ab Screen by IFA, S Negative Negative 10/19/2023 8:45 AM CDT [facility] Comment:No titer performed, COURT screen is negative. Blood (Blood, Venous) 10/17/2023 2:43 PM CDT 10/17/2023 9:02 PM CDT Tyson Carreon M.D. LAB BLOOD NON ADD-ON Performing Organization Address City/[facility]/ZIP Co de Phone Number [facility] [address] [place] [address], [facility] ECLR [address] [place] [phone] * Hexosaminidase A and Total Hexosaminidase, Leukocytes (10/17/2023 2:43 PM CDT) Pathologist [facility] Hexosaminidase Total, WBC 23.9 16.4 - 36.2 nmol/min /mg 10/21/2023 2:17 PM CDT DTL Hexosaminidase Percent A, WBC 64 63 - 75 % 10/21/2023 2:17 PM CDT DTL Reviewed by Coreen Angel PhD 10/21/2023 2:17 PM CDT DTL Interpretation [...] test MUGS). Please contact the Biochemical Genetics c consultant or genetic counselor aggregate conveyor operator ( ) if you have any questions. 10/21/2023 2:17 PM CDT DTL Comment: ----ADDITIONAL INFORMATION---- Heat Inactivation, Fluorometric This test was developed and its performance characteristics determined by [facility] in a manner consistent with CLIA requirements. This test has not been cleared or approved by the U.S. Food and Drug Administration. Blood (Blood, Peripheral Draw) 10/17/2023 2:43 PM CDT 10/18/2023 7:40 AM CDT Tyson Carreon M.D. LAB GENETIC TESTING [facility] [address] [place] [address], [facility] DT [address] [facility] [address] [place] [address] * Copper (10/17/2023 2:43 PM CDT) [facility] Copper, S 115 77 - 206 mcg/dL 10/18/2023 10:42 AM CDT [facility] Comment: ----ADDITIONAL INFORMATION---- This test was developed and its performance characteristics determined by [facility] in a manner consistent with CLIA requirements. This test has not been cleared or approved by the U.S. Food and Drug Administration. Blood (Blood, Venous) 10/17/2023 2:43 PM CDT 10/17/2023 9:48 PM CDT Tyson Carreon M.D. LAB BLOOD NON ADD-ON Performing Organization Address City/[facility]/ZIP Co de Phone Number [facility] [address] [place] [address] [facility] [address] [place] [address] * CK (Creatine Kinase) (10/17/2023 2:43 PM CDT) Creatine Kinase, P 163 26 - 192 U/L 10/17/2023 3:17 PM CDT [facility] Blood (Blood, Venous) 10/17/2023 2:43 PM CDT 10/17/2023 2:49 PM CDT Tyson Carreon M.D. LAB BLOOD ADD-ON Performing Organization Address [facility]UST Co de Phone Number [facility] [address] [place] [id number], [facility] RDWG [facility] [place] [address] [place] [phone] * Vitamin E Level (10/17/2023 2:39 PM CDT) [facility] A-Tocopherol, Vitamin E 13.6 5.5 - 17.0 mg/L 10/19/2023 8:25 AM CDT [facility] Comment: ----ADDITIONAL INFORMATION---- This test was developed and its performance characteristics determined by [facility] in a manner consistent with CLIA requirements. This test has not been cleared or approved by the U.S. Food and Drug Administration. Blood (Blood, Venous) 10/17/2023 2:39 PM CDT 10/18/2023 11:23 AM CDT Tyson Carreon M.D. LAB BLOOD NON ADD-ON Performing Organization Address City/[facility]/ZIP Co de Phone Number [facility] [address] [place] [address] [facility] [address] [place] [address] 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
--- NOTE | 2023-11-07 13:00 | CRLHL7_ITS ---
For Patients: As a result of the Century Cures Act, medical imaging exams and procedure reports are released immediately into your electronic medical record. You may view this report before your referring provider. If you have questions, please contact your health care provider. INDICATION: right thyroid mass on MRI COMPARISON: Cervical spine MRI 10/19/2023 TECHNIQUE: Mcguire scale and color Doppler images were acquired of the thyroid gland. FINDINGS: Thyroid echotexture is heterogeneous. Isthmus measures 2.9 millimeters. Almost completely solid nodule right thyroid lobe inferior pole measures 2.2 x 1.6 x 2.3 cm. The right lobe measures 4.4 x 1.8 x 1.9 cm and the left lobe measures 3.8 x 0.9 x 1.3 cm in size. Color doppler images demonstrate increased vascularity. There is no evidence of cervical lymphadenopathy or parathyroid mass. IMPRESSION: 2.3 cm TR 4 nodule lower pole right thyroid lobe. FNA recommended. Dictated by Yemi Waggoner MD @ 11/07/2023 4:01:05 PM (Electronically Signed)
== END 2023-11-07 12:35 | disposition home or self-care (01) ==
PROVIDERS: PCP Physician Assistant Medical; Visit Provider Physician Assistant Medical
DX: E07.9 Disorder of thyroid, unspecified (principal)
CPT/HCPCS: 76536

== ENCOUNTER 2023-11-17 08:52 | Outpatient (CLI) | payer MEDICARE, BC, SELFPAY ==
--- OUTSIDE RECORDS SUMMARY | 2023-11-17 08:57 | XMS_ITS | Encounter Summary ---
Author Organization [place] Address [address] [place] [address]. [place] [address] Care Team Providers Care Agriculture Laborer Name Role Phone Nicanor Thomas MD Primary Care Provider Natacha Meade [facility] Unavailable [phone] Encounter Details Date Type Department Care Team (Late st Contact Info) Description 11/11/2023 MyC Medical Advice [facility] Neurology [address] [phone] Yemi Bacon MD [address] [place] [address] Social History Tobacco Use Types Packs/Day Years Used Date Smoking Tobacco: Never Alcohol Use Standard Drinks/Week Comments Yes 0 (1 standard drink = 0.6 oz pur e alcohol) 3 drinks weekly PHQ-2 Answer Date Recorded PHQ-2 Score 2 11/10/2023 Adolescent Education Answer Date Record ed Getting School Help Needed Not on file 11/01 Sex and Gender Information Value Date Recorded Sex Assigned at Not on file Gender Identity Not on file Sexual Orientation Not on file documented as of this encounter Plan of Treatment Upcoming Encounters Date Type Department Care Team (Late st Contact Info) Description 01/12/2024 9:00 AM CDT Office Visit [facility] Neurology [address] [phone] Yemi Bacon MD [address] [place] [address] [place] [address] 02/14/2024 9:00 AM LIQUID CENTER ASSEMBLER Virtual Visit [facility] Multiple Sclerosis [address] [phone] Yemi Bacon MD [address] [place] [phone] Natacha Meade [address] [address] documented as of this encounter Visit Diagnoses Not on filedocumented in this encounter Care Teams Agriculture Laborer Relationship Specialty Start Date End Date Nicanor Thomas MD [facility] [address] [address] PCP - General 07/13/05 Natacha Meade [facility] [address] [place] [phone] Pharmacist Pharmacist 11/09/23 documented as of this encounter
--- OUTSIDE RECORDS SUMMARY | 2023-11-17 08:57 | XMS_ITS | Encounter Summary ---
Author Organization [facility] [place] Address [address] [place] [address]. [place] [address] Care Team Providers Care Professional Volleyball Player Name Role Phone Nicanor Thomas MD Primary Care Provider Natacha Meade [facility] Unavailable [phone] Reason for Visit * Reason Onset Date Comments Refill Request 11/10/2023 Encounter Details Date Type Department Care Team (Late st Contact Info) Description 11/09/2023 Refill [facility] Multiple Sclerosis Clinic [address] [phone] Natacha Meade, [address] [phone] Refill Request Social History Tobacco Use Types Packs/Day Years [...] encounter Miscellaneous Notes * Telephone Encounter - Natacha Meade Luis Angel - 11/10/2023 9:00 AM CDT Medication/Dose: Edaravone (Radicava ORS) 105mg/5ml Diagnosis and ICD code (if different than what is on RX): New/renewal/insurance change PA/secondary ins. PA: Previously Tried and Failed: Rationale: Insurance Primary: BCBS Insurance ID: [id number] (if applicable): Pharmacy Information (if different than what is on RX) Name: Phone: Fax: * Telephone Encounter - Natacha Meade RPH - 11/09/2023 11:40 AM CDT Patient was seen today for MTM visit to start Radicava ORS. Pending starter kit and maintenance dose prescriptions for Dr. Bacon to review and sign. Prescriptions will be sent to [facility] unless insurance requires alternate pharmacy. documented in this encounter Plan of Treatment Upcoming Encounters Date Type Department Care Team (Late st Contact Info) Description 01/12/2024 9:00 AM CDT Office Visit [facility] Neurology Clinic [address] 3rd [place] [phone] Yemi Bacon MD [address] [place] [address] 02/14/2024 9:00 AM ADVENTURE THERAPIST Virtual Visit [facility] Multiple Sclerosis Clinic [address] [phone] Yemi Bacon MD [address] [place] [address] Natacha Meade RPH [address] [place] [address] documented as of this encounter Visit Diagnoses Diagnosis ALS (amyotrophic lateral sclerosis) (H)- Primary Amyotrophic lateral sclerosis documented in this encounter Care Teams Professional Volleyball Player Relationship Specialty Start Date End Date Nicanor Thomas MD [facility] [address] [place] [address] PCP - General 07/13/05 Natacha Meade [facility] [address] [place] [address] Pharmacist Pharmacist 11/09/23 documented as of this encounter
--- OUTSIDE RECORDS SUMMARY | 2023-11-17 08:57 | XMS_ITS | Encounter Summary ---
Author Organization [facility] Address [address] [place] [address]. [place] [address] Care Team Providers Care Solar Energy Engineer Name Role Phone Nicanor Thomas MD Primary Care Provider Natacha Meade [facility] Unavailable [phone] Reason for Visit * Reason Comments RECHECK Encounter Details Date Type Department Care Team ([facility] st Contact Info) Description 11/10/2023 1:00 PM CDT Office Visit [facility] Neurology Clinic [address] [place] [address] Yemi Bacon MD [address] [place] [id number] [place], [place] [address] ALS (amyotrophic lateral sclerosis) (H) (Primary Dx) Social History Tobacco Use [...] Sign Reading Time Taken Comments Blood Pressure 138/90 11/10/2023 12:58 PM CDT Pulse 76 11/10/2023 12:58 PM CDT Temperature - - Respiratory Rate 16 11/10/2023 12:58 PM CDT Oxygen Saturation 99% 11/10/2023 12:58 PM CDT Inhaled Oxygen Concentration - - Weight 61.2 kg (135 lb) 11/10/2023 12:58 PM CDT Height - - Body Mass Index 21.46 11/02/2023 2:01 PM CDT documented in this encounter Patient Instructions * Patient Instructions* Yemi Bacon MD - 11/10/2023 1:00 PM CDT Send me the information about the trial you discussed. Give the Nuedexta up to a one month trial; let us know when I see you next if it helped. Hepatic panel blood test in 4-6 weeks. Lab visit today. Information about ALS is available at alsa.org, als.net, mdausa.org. Virtual visit in approximately 6 weeks; in-person visit in approximately 3 months. Let us know however in the interim whenever you have new questions or problems! Please call [facility] @ [phone] for questions or concerns during regular business hours. For a more efficient way to communicate, use [employer] and address the message to your physician. Remember, [employer]oyit is only read during business hours. Do not leave urgent messages on voice[employer] or [employer]. If situation is urgent, contact the Neurology Clinic @ [phone] and ask to speak to a Triage Nurse or Call 911 or visit an Emergency Department. Please call your pharmacy if you need a medication refill. They will send us an electronic message. documented in this encounter Progress Notes * Yemi Bacon MD - 11/10/2023 1:00 PM CDT I met with Magaly Pyle Ashish in follow-up today as part of a initial multidisciplinary care team visit. Magaly and I again discussed her diagnosis and the differential diagnosis as well as the typical and atypical aspects of her presentation. We discussed current clinical trials and ALS and her will send information about 1 study that he has read about. She has not yet started Nuedexta. She is on riluzole. She has completed a benefits investigation form along with our pharmacist today for Radicava. We also discussed some of her clinical findings noted on last week's note. She pointed out that herweight has been stable and in fact is up 3 pounds from her last visit. I repeated manual muscle testing of the distal upper extremities and again confirmed that there is mild weakness of the first distal dorsal interosseous bilaterally. Rapid repetitive movements of the feet today were normal. She does have mild difficulty walking on heels. These findings support the electrodiagnostic evidence ofmodest limb involvement. Magaly will meet with other members of our multidisciplinary care team today. I also recommended a trial of Nuedexta. Patient instructions: Send me the information about the trial you discussed. Give the Nuedexta up to a one month trial; let us know when I see you next if it helped. Hepatic panel blood test in 4-6 weeks. Lab visit today. Information about ALS is available at alsa.org, als.net, mdausa.org. Virtual visit in approximately 6 weeks; in-person visit in approximately 3 months. Let us know however in the interim whenever you have new questions or problems. [Altered to in-person visit in 2 months] Yemi Bacon M.D. 53 minutes spent on the date of the encounter on chart review, history and examination, documentation and further activities as noted above. The longitudinal plan of care for the diagnosis(es)/condition(s) as documented were addressed during this visit. Due to the added complexity in care, I will continue to support Magaly in the subsequent management and with ongoing continuity of care. documented in this encounter Nursing Notes * Gerry Mejia - 11/10/2023 1:00 PM CDT Chief Complaint Patient presents with RECHECK Gerry Mejia documented in this encounter Plan of Treatment Upcoming Encounters Date Type Department Care Team (Late st Contact Info) Description 01/12/2024 9:00 AM CDT Office Visit [facility] Neurology Clinic [address] [place] [phone] Yemi Bacon MD [address] [place] [address] [id number] [place], [place] [id number] 02/14/2024 9:00 AM SECTION LEADER Virtual Visit [facility] Multiple Sclerosis Clinic [address] [phone] Yemi Bacon MD [address] [place] [address] [id number] [place], [place] [phone] Natacha Meade[address] [phone] documented as of this encounter Results * Hepatic panel (11/10/2023 3:59 PM CDT) Pathologist [facility] Protein Total 7.2 6.4 - 8.3 g/dL 11/10/2023 4:26 PM CDT [facility] Albumin 4.4 3.5 - 5.2 g/dL 11/10/2023 4:26 PM CDT [facility] Bilirubin Total 0.3 <=1.2 mg/dL 11/10/2023 4:26 PM CDT [facility] Alkaline Phosphatase 70 40 - 150 U/L 11/10/2023 4:26 PM CDT [facility] AST 23 0 - 45 U/L 11/10/2023 4:26 PM CDT [facility] ALT 14 0 - 50 U/L 11/10/2023 4:26 PM CDT [facility] Bilirubin Direct <0.20 0.00 - 0.30 mg/dL 11/10/2023 4:26 PM CDT [facility] Blood STRUCTURE OF RIGHT UPPER LIMB / Unknown Venipuncture / Unknown 11/10/2023 3:59 PM CDT 11/10/2023 3:59 PM CDT Yemi Bacon MD LAB - BLOOD ORDERABL ES [facility] - [address] 1st [place] [address] documented in this encounter Visit Diagnoses Diagnosis ALS (amyotrophic lateral sclerosis) (H)- Primary Amyotrophic lateral sclerosis documented in this encounter Care Teams Solar Energy Engineer Relationship Specialty Start Date End Date Nicanor Thomas MD [facility] [address] [place] [address] PCP - General 07/13/05 Natacha Meade RPH [address] [place] [address] Pharmacist Pharmacist 11/09/23 documented as of this encounter
--- OUTSIDE RECORDS SUMMARY | 2023-11-17 08:57 | XMS_ITS | Referral Summary ---
Author Organization [place] Address [address] [place] [address]. [place] [address] Care Team Providers Care Plastic Tile Setter Name Role Phone Felipe Thomas MD Primary Care Provider Natacha Meade [facility] Unavailable [phone] Encounters Date Type Department Care Team Description 11/14/2023 Telephone [facility] [address] [phone] Yemi Bacon MD Prior Auth - Medication (dextromethorphan-quiNI Dine (NUEDEXTA) 20-10 MG capsule -EPA DENIED) 11/11/2023 MyC Medical Advice [facility] [address] [phone] Yemi Bacon MD 11/10/2023 MyC Medical Advice [facility] [address] [phone] Yemi Bacon MD 11/10/2023 Allied Health/Nurse Visit [facility] [address] [phone] Yemi Bacon MD ALS (amyotrophic lateral sclerosis) (H) (Primary Dx) 11/10/2023 3:45 PM CDT Lab [facility] [address] [phone] ALS (amyotrophic lateral sclerosis) (H) 11/10/2023 Travel 11/10/2023 2:15 PM CDT Therapy Visit [facility] [address] [phone] Katerina Cervantes, IMAGING AIDE ALS (amyotrophic lateral sclerosis) (H) (Primary Dx); Dysarthria; Oropharyngeal dysphagia 11/10/2023 Telephone [facility] [address] [phone] Yemi Bacon MD Prior Auth - Medication (Radicava ORS Starter Kit 105MG/5ML suspension (PA PENDING)) 11/10/2023 Telephone [facility] [address] [phone] Yemi Bacon MD Medication Request (Nuedexta) 11/10/2023 7:30 AM CDT Virtual Visit [facility] [address] [facility] 12th [facility] [phone] Lisset Quiros, Encounter for nonprocreative genetic counseling (Primary Dx); ALS (amyotrophic lateral sclerosis) (H) 11/10/2023 1:00 PM CDT Office Visit [facility] [address] [phone] Yemi Bacon MD ALS (amyotrophic lateral sclerosis) (H) (Primary Dx) 11/09/2023 Refill [facility] [address] [phone] Natacha Meade RPH Refill Request 11/09/2023 MyC Medical Advice [facility] [address] [phone] Natacha Meade RPH 11/09/2023 9:00 AM CDT Virtual Visit [facility] [address] [phone] Yemi Bacon MD [place], Sara, [facility] ALS (amyotrophic lateral sclerosis) (H) (Primary Dx); Anxiety; Hypothyroidism; Seasonal allergic rhinitis, unspecified trigger; Vasomotor symptoms due to menopause 11/08/2023 Orders Only [facility] [address] [phone] Irma Batista LPN ALS (amyotrophic lateral sclerosis) (H) (Primary Dx) 11/02/2023 Travel 11/02/2023 1:30 PM CDT Office Visit [facility] [address] [phone] Yemi Bacon MD ALS (amyotrophic lateral sclerosis) (H) (Primary Dx); Acquired amyotrophic lateral sclerosis (H) 11/02/2023 1:00 PM CDT Office Visit [facility] Pul[facility] Function Testing [address] [phone] Muscle weakness (generalized) 10/28/2023 Orders Only [facility] [address] [phone] Irma Batista LPN Muscle weakness (generalized) (Primary Dx) 10/28/2023 Telephone [facility] [address] [phone] None Referral (ALS Multidisciplinary Clinic/) 10/27/2023 Transcribe Orders GENERIC EXTERNAL DATA DEPARTMENT Provider, Generic External Data Acquired amyotrophic lateral sclerosis (H) (Primary Dx) from Last 3 Months Allergies Active Allergy Reactions Criticality Noted Date Comments Penicillins Rash High 06/18/2013 Medications Medication Sig Dispensed Refills Start Date End Date Status levothyroxine (SYNTHROID/LEVOTHRO ID) 50 MCG tablet Take 50 mcg by mouth daily Active cetirizine (ZYRTEC) 5 MG tablet Take 10 mg by mouth daily Active venlafaxine (EFFEXOR XR) 37.5 MG 24 hr capsule Take 37.5 mg by mouth daily Active ALPRAZolam (XANAX) 0.25 MG tablet Take 0.5 mg by mouth 3 times daily as needed for anxiety Active riluzole (RILUTEK) 50 MG tablet Take 50 mg by mouth Twice daily 10/27/2023 Active edaravone (RADICAVA ORS) 105 MG/5ML suspensionIndicatio ns:ALS (amyotrophic lateral sclerosis) (H) Take 5 mLs (105 mg) by mouth daily For 10 days out of 14 days in the morning on an empty stomach. Then do not take medication for 14 days. Shake well before each use. 50 mL 11 11/09/2023 Active edaravone (RADICAVA ORS STARTER KIT) 105 MG/5ML suspensionIndicatio ns:ALS (amyotrophic lateral sclerosis) (H) Take 5 mLs (105 mg) by mouth daily For 14 days in the morning on an empty stomach. Then do not take medication for 14 days. Shake well before each use. 70 mL 11/09/2023 Active dextromethorphan-qu iNIDine (NUEDEXTA) 20-10 MG capsuleIndications: ALS (amyotrophic lateral sclerosis) (H) Take 1 capsule by mouth once daily for 7 days and then increase to 1 capsule by mouth twice daily 60 capsule 2 11/10/2023 Active Immunizations Name Administration Dates Next Due COVID-19 MONOVALENT 12+ (Pfizer) 04/15/2020,03/05 [id number] Novel Flu 02/10/2009 Hepatitis A (ADULT 19+) 11/15/2022,03/22/2014 Influenza (intradermal) 01/30/2014 Influenza Vaccine 18-64 (Flublok) 01/26/2022,01/2019 Influenza Vaccine >6 months,quad, PF 12/2016,01/21/2016,01/08/2015,2008 Influenza, seasonal, injectable, PF 01/03,01/11/2018,01/02/2013,2011,01/12/2011,01/07/2010 TDAP (Adacel,Boostrix) 12/20/2017 Typhoid IM 11/15/2022,03/22/2014 Zoster recombinant adjuvante d (SHINGRIX) 08/01/2023,01/06/2023 Social History Tobacco Use Types Packs/Day Years [...] (135 lb) 11/10/2023 12:58 PM CDT Height 168.9 cm (5' 6.5) 11/02/2023 2:01 PM CDT Body Mass Index 21.46 11/02/2023 2:01 PM CDT Plan of Treatment Upcoming Encounters Date Type Department Care Team (Late st Contact Info) Description 01/12/2024 9:00 AM CDT Office Visit [facility] [address] 3rd [place] [phone] Yemi Bacon MD [address] [place] [address] 02/14/2024 9:00 AM FLOOR SUPERVISOR Virtual Visit [facility] [address] [phone] Yemi Bacon MD [address] [place] [address] [phone] [address] Procedures Procedure Name Priority Date/Time Associated Diagnosis Comments MUSCLE-SPECIFIC KINASE ANTIBODY SCREEN WITH REFLEX TO TITER Routine 11/10/2023 3:59 PM CDT ALS (amyotrophic lateral sclerosis) (H) LABORATORY MISCELLANEOUS ORDER Routine 11/10/2023 3:59 PM CDT ALS (amyotrophic lateral sclerosis) (H) HEPATIC FUNCTION PANEL Routine 11/10/2023 3:59 PM CDT ALS (amyotrophic lateral sclerosis) (H) IA RESPIRATORY FLOW VOLUME LOOP Routine 11/02/2023 1:02 PM CDT Muscle weakness (generalized) IA MIP/MEP Routine 11/02/2023 1:02 PM CDT Muscle [...] Recently Relevant to Health Maintenance Results * Other Laboratory; prevention genetics; sponsored ALS panel with [id number] and ATXN2 repeat analysis test code [id number] (Laboratory Miscellaneous Order) (11/10/2023 3:59 PM CDT) Specimen Status Specimen received. Reordered and sent to performing laboratory. Report to follow up on completion. [facility] 11/11/2023 1:24 PM CDT LABORATORY Performing Laboratory prevention genetics [facility] 11/11/2023 1:24 PM CDT [facility] - CORE LAB Test Name sponsored ALS panel with [id number] and ATXN2 repeat analysis test code [id number] [facility] 11/11/2023 1:24 PM CDT [facility] - CORE LAB Blood STRUCTURE OF RIGHT UPPER LIMB / Unknown Venipuncture / Unknown 11/10/2023 3:59 PM CDT 11/10/2023 3:59 PM CDT Yemi Bacon MD LAB - BLOOD ORDERABL ES U LABORATORY [facility] [address] [facility] [address] [facility], Room [address] [place] [phone] - CORE LAB [facility] [place] [address] [facility] 1st [place] [address] * Muscle-Specific Kinase Antibody Screen with Reflex to Titer (11/10/2023 3:59 PM CDT) [facility] Muscle-Specific Kinase Antibody Screen <1:10 <1:10 11/14/2023 10:59 PM CDT [facility] [employer] Comment: MuSK Antibody, IgG is not detected. No further testing will be performed. INTERPRETIVE INFORMATION: MuSK IgG Ab CBA, Serum, with Rflx Muscle-specific kinase (MuSK) antibody is found in a subset of patients with myasthenia gravis, primarily those seronegative for muscle acetylcholine receptor (AChR) antibody. Decreasing antibody levels may be associated with therapeutic response; therefore, clinical correlation must be strongly considered. A negative test result does not rule out a diagnosis of myasthenia gravis. This indirect fluorescent antibody cell-based assay (CBA) utilizes muscle-specific kinase (MuSK) transfected cells for the detection of the MuSK IgG antibody. This test was developed and its performance characteristics determined by [facility]. It has not been cleared or approved by the U.S. Food and Drug Administration. This test was performed in a CLIA-certified laboratory and is intended for clinical purposes. Performed By: [facility] [address] [place] [address] [employer]i [employer] Engineer: Fidel Cornell MD, PhD CLIA Number: [id number] Blood BLOOD SPECIMEN / Unknown Venipuncture / Unknown 11/10/2023 3:59 PM CDT 11/10/2023 3:59 PM CDT Yemi Bacon MD LAB - BLOOD ORDERABL ES [facility] [address] [place] [phone], [facility] [phone] * Hepatic panel (11/10/2023 3:59 PM CDT) Protein Total 7.2 6.4 - 8.3 g/dL 11/10/2023 4:26 PM CDT [facility] - CORE LAB Albumin 4.4 3.5 - 5.2 g/dL 11/10/2023 4:26 PM CDT [facility] - CORE LAB Bilirubin Total 0.3 <=1.2 mg/dL 11/10/2023 4:26 PM CDT [facility] - CORE LAB Alkaline Phosphatase 70 40 - 150 U/L 11/10/2023 4:26 PM CDT [facility] - CORE LAB AST 23 0 - 45 U/L 11/10/2023 4:26 PM CDT [facility] - CORE LAB ALT 14 0 - 50 U/L 11/10/2023 4:26 PM CDT [facility] - CORE LAB Bilirubin Direct <0.20 0.00 - 0.30 mg/dL 11/10/2023 4:26 PM CDT [facility] - CORE LAB Blood STRUCTURE OF RIGHT UPPER LIMB / Unknown Venipuncture / Unknown 11/10/2023 3:59 PM CDT 11/10/2023 3:59 PM CDT Yemi Bacon MD LAB - BLOOD ORDERABL ES Performing Organization Address City/[facility]/ZIP Co de Phone Number [facility] - CORE LAB [facility] Clinics and Surgery [address] 1st [place] [address] * Pulmonary Function Test (11/02/2023 12:50 PM CDT) FVC-Pred 3.14 L [facility] FVC-Pre 3.29 L [facility] FVC-%Pred-Pre 104 % [facility] FEV1-Pre 2.67 L [facility] FEV1-%Pred-Pre 107 % [facility] [id number] 80 % [facility]FT [id number] 81 % [facility] FEFMax-Pred 6.63 L/sec [facility]FT FEFMax-Pre 5.47 L/sec [facility] PFT FEFMax-%Pred-Pr e 82 % [facility]FT [id number] 2.27 L/sec [facility] [id number] 2.74 L/sec [facility]FT VGX3048-%Pred-P re 120 % [facility] ExpTime-Pre 5.71 sec [facility] PFT FIFMax-Pre 2.04 L/sec [facility] MEP-Pre 70 cmH2O [facility]FT MIP-Pre -50 cmH2O [facility]FT [id number]-Lwam 81 % [facility]FT [id number] 82 % [facility] 11/02/2023 12:5 0 PM CDT Narrative [facility] - 11/03/2023 6:37 PM CDT The FVC, FEV1, FEV1/FVC ratio and QTT28-14% are within normal limits. IMPRESSION: Normal Spirometry. MIP and MEP are reduced. ?This interpretation has been electronically signed: ??SAMMY RIOS 11/03/2023 ??06:09:20 PM? Yemi Bacon MD PFT ORDERABLES [facility] * MAMMOGRAM, SCREENING (01/02/2007 3:39 PM [...] CDT) Glucose 88 60 - 110 mg/dL [facility] 08/03/2005 9:11 AM CDT 08/03/2005 9:13 AM CDT Felipe Thomas MD LABORATORY [facility] * (ABNORMAL) A.M.A. LIPID PANEL (08/03/2005 9:11 AM CDT) Cholesterol 147 0 - 200 mg/dL [facility] Comment: LDL Cholesterol is the primary guide to therapy: LDL-cholesterol goal in high risk patients is <100 mg/dL and in very high risk patients is <70 mg/dL. The NCEP recommends further evaluation of: patients with cholesterol <200 mg/dL if additional risk factors are present, cholesterol >240 mg/dL, triglycerides >150 mg/dL, or HDL <40 mg/dL. Triglycerides 73 0 - 150 mg/dL [facility] HDL Cholesterol 45(L) 50 - 110 mg/dL [facility] LDL Cholesterol Calculated 87 0 - 129 mg/dL [facility] Comment: LDL Cholesterol is the primary guide to therapy: LDL-cholesterol goal in high risk patients is <100 mg/dL and in very high risk patients is <70 mg/dL. VLDL-Cholesterol 15 0 - 30 mg/dL [facility] Cholesterol/HDL Ratio 3.2 0.0 - 5.0 [facility] 08/03/2005 9:11 AM CDT 08/03/2005 9:13 AM CDT Felipe Thomas MD LABORATORY Performing Organization Address [facility]/ZIP Co de Phone Number [facility] * TSH W/FREE T4 REFLEX (07/20/2005 11:40 AM CDT) TSH 3.64 0.4 - 5.0 mU/L [facility] 07/20/2005 11:4 0 AM CDT 07/20/2005 11:42 AM CDT Felipe Thomas MD LABORATORY [facility] * A THIN LAYER PAP SCREEN (07/20/2005 12:00 AM CDT) PAP NIL COPATH Copath Report Patient Name: MAGALY HINOJOSA MR#: [id number] Specimen #: [id number] Collected: 07/20/2005 Received: 07/21/2005 Reported: 07/22/2005 08:34 [...] HUBER Finn (ASCP) Processed and screened at [facility], [facility] CLINICAL HISTORY: Irregular Bleeding Other: spotting, Previous normal pap Date of Last Pap: 3.2004 Other: history previous abnormal 8 years ago/colpo normal paps since that time), TESTING LAB LOCATION: [address] ??[phone] COLLECTION SITE: Client: ??[facility] Location: [facility] (R) COPATH 07/20/2005 07/21/2005 10: 18 AM CDT Felipe Thomas MD LABORATORY RAE from Last 3 Months or Most Recently Relevant to Health Maintenance Care Teams Plastic Tile Setter Relationship Specialty Start Date End Date Felipe Thomas MD [facility] [address] [place] [address] PCP - General 07/13/05 Natacha Meade [facility] [address] [place] [phone] Pharmacist Pharmacist 11/09/23
--- OUTSIDE RECORDS SUMMARY | 2023-11-17 08:57 | XMS_ITS | Encounter Summary ---
Author Organization [place] Address [address] [place] [address]. [place] [address] Care Team Providers Care Outsole Rounder Name Role Phone Nicanor Thomas MD Primary Care Provider Natacha Meade [facility] Unavailable [phone] Reason for Visit * Rehab Therapy Physical Therapy (Routine) - Referral NOT Required Specialty Diagnoses / Procedures Referred By Paolo llanos Referred To Contact Physical Therapy Procedures CLINIC-ADULT ALS [address] [address] Referral ID Status Reason Start Date Expiration Date V isits Requested Visits Authorized [id number] Referral NOT Required 11/10/2023 04/03/[phone] Encounter Details Date Type Department Care Team (Latest Contact Info) Description 11/10/2023 2:15 PM CDT Therapy Visit [address] 3rd [place] [phone] Katerina Cervantes, LONG TERM CARE ADMINISTRATOR [address] [place] [phone] ALS (amyotrophic lateral sclerosis) (H) (Primary Dx); Dysarthria; Oropharyngeal dysphagia Social History Tobacco Use Types Packs/Day Years [...] as of this encounter Progress Notes * Katerina Cervantes, LONG TERM CARE ADMINISTRATOR - 11/10/2023 2:15 PM CDT SPEECH LANGUAGE PATHOLOGY EVALUATION See electronic medical record for Abuse and Falls Screening details. Subjective Presenting condition or subjective complaint: ALS Date of onset: diagnosed 11/02/23 Relevant medical history: Refer to medical record Prior therapy history for the same diagnosis, illness or injury: patient will be followed in this ALS Multidisciplinary Clinic on average every 3 months, this is first visit to clinic. Others at Clinic Visit: spouse Jameson Patient goals for therapy/concerns: Increased speech deficits, Increased swallowing deficits Objective Cardio-Respiratory Status: Forced Vital Capacity 104% of predicted Height/Weight: 5'6 and 135 lbs Functional Rating Scale (ALS-FRS): 47/48 10 Meter Walk test: defer to PT Speaking Rate: 152wpm Oral Motor/Swallowing Current Diet/Method of Nutritional Intake: thin liquids (level 0), regular diet Level of assist required for feeding: no assistance needed Oral Motor Function: Anomalies present: Mandibular anomaly- none Labial anomaly- intact Lingual anomaly- ROM (mild), Strength (intact), and Rate (mild) Velar elevation- intact Buccal strength- adequate Volitional Cough: Functional Volitional Throat Clear: Functional Volitional Swallow: Present Oral Hygiene: Adequate Swallow Function: Thin Liquids: mildly reduced A-P propulsion of bolus and suspected premature spillage, reduced pharyngeal constriction, multiple audible swallows to pass bolus, but no overt s/s aspiration. Regular Solids: Increased mastication time, reduced A-P propulsion of bolus and reduced pharyngeal constriction but no overt s/s aspiration. Dysphagia Diagnosis: Mild dysphagia Diet Texture Recommendations: thin liquids (level 0), regular diet Recommended Feeding/Eating Techniques: see description below Medication Administration Recommendations: continue as current Instrumental Assessment Recommendations: instrumental evaluation not recommended at this time Dysphagia Intervention: LONG TERM CARE ADMINISTRATOR educated in swallowing anatomy and physiology including aspiration and possible respiratory compromise from aspiration. Trained safe swallow strategies to reduce aspiration risks (small bites/sips, slow rate of intake, chin tuck, mindful swallowing, use caution with straws, monitoring for fatigue with intake). Also trained diet modifications to ease intake (avoid hard dry foods with particles and choosing soft moist solids). Speech Intelligibility/Functional Communication Methods of communication: Verbal Speech Intelligibility: intact, 100% intelligible Respiration Observations: WNL Phonation: strained-strangled quality, slight monotone and monoloudness suggested but this may be baseline Resonance: WNL Articulation: imprecise articulation reported with fatigue but not appreciated during assessment Speaking Rate: 152 words per minute per [place] reading (norm is 150- 250wpm) but both patient and spouse report she is speaking slower than her baseline Motor speech level of impairment: mild to moderate impairment Speech Intelligibility/Communication: Communicates functionally Augmentative and Alternative Communication (AAC): Working with [employer]SA on Voice Preservation, educatedin AAC as below Communication Intervention: LONG TERM CARE ADMINISTRATOR provided education regarding lingual and labial impact on speech and articulation. LONG TERM CARE ADMINISTRATOR trained use of speech strategies to improve intelligibility and reduce fatigue with speaking (reducing background noise, facing the conversation partner, speaking slowly, exaggerating each sound, repeating words or rewording message, using as few words as possible, planning aheadto reduce impact of fatigue). LONG TERM CARE ADMINISTRATOR also trained conversational partners present today regarding listener strategies (giving speaker full attention, letting the speaker know if message not understood, repeating the part of the message that was understood so speaker only needs to repeat the part that was missed, asking yes/no questions when able). LONG TERM CARE ADMINISTRATOR introduced concept of Augmentative-Alternative Communication and demonstrated use of Lineagen Board and iPad with AAC nora (Brake Engineer) both for communication and to demonstrate voice banking vs message banking. She has worked with [employer] and is signed up for Voice Banking but admits she hasn't wanted to do it because she is still in denial of diagnosis. Assessment & Plan Clinical Impressions Medical Diagnosis: ALS Treatment Diagnosis: Dysarthria, Dysphagia Impression/Assessment: Pt is a 58 year old female with ALS. The following significant findings havebeen identified: impaired speech intelligibility and impaired swallowing, characterized by mild dysphagia and mild-moderate spastic dysarthria. Identified deficits interfere with their ability to communicate within the home or community as compared to previous level of function. Plan of Care Treatment Interventions: Swallowing dysfunction and/or oral function for feeding, Speech Prognosis to achieve stated therapy goals is good Rehab potential is impacted by: comorbidities Senior Care Goals: Based on today's evaluation session patient and/or caregiver will have understanding of current communication and/or swallowing status and recommendations for management. Frequency of Treatment: one time only eval and treat within ALS Interdisciplinary Clinic Duration of Treatment: one time only eval and treat within ALS Interdisciplinary Clinic Recommended Referrals to Other Professionals: None Risks and benefits of evaluation/treatment have been explained. Patient/Family/caregiver agrees with Plan of Care. Recommendations: Oral diet of soft/moist solids and thin liquids Use of safe swallow strategies listed above Use of speech strategies listed above Complete Voice Preservation with support of ALSA Education provided/response: Speech Swallowing AAC Diet Verbalized understanding Treatment provided this date: Swallow intervention, 17 minutes (see above for details) Communication intervention, 5 minutes (see above for details) Response to recommendations/treatment: verbalized understanding, asked appropriate questions, agreed to recommendations Goal attainment: All goals met Total Evaluation Time (minutes): 20 Timed Code Treatment (minutes): 0 minutes Total Treatment Time (sum of timed and untimed services): 22 Threader Operator Present: Not applicable Signing Clinician: ABDULLAHI Marc documented in this encounter Plan of Treatment Upcoming Encounters Date Type Department Care Team (Late st Contact Info) Description 01/12/2024 9:00 AM CDT Office Visit [facility] Neurology Clinic [address] 3rd [place] [phone] Yemi Bacon MD [address] [place] [address] 02/14/2024 9:00 AM AMERICAN SIGN LANGUAGE INTERPRETER Virtual Visit [facility] Multiple Sclerosis [address] [phone] Yemi Bacon MD [address] [place] [address] Natacha Meade, [address] [address] documented as of this encounter Visit Diagnoses Diagnosis ALS (amyotrophic lateral sclerosis) (H)- Primary Amyotrophic lateral sclerosis Dysarthria Oropharyngeal dysphagia Dysphagia, oropharyngeal phase documented in this encounter Care Teams Outsole Rounder Relationship Specialty Start Date End Date Nicanor Thomas MD [facility] [address] [place] [address] PCP - General 07/13/05 Natacha Meade [facility] [address] [place] [address] Pharmacist Pharmacist 11/09/23 documented as of this encounter
--- OUTSIDE RECORDS SUMMARY | 2023-11-17 08:57 | XMS_ITS | Encounter Summary ---
Author Organization [place] Address [address] [place] [address]. [place] [address] Care Team Providers Care Provider Relations Manager Name Role Phone Nicanor Thomas MD Primary Care Provider Natacha Meade [facility] Unavailable [phone] Encounter Details Date Type Department Care Team (Late st Contact Info) Description 11/10/2023 MyC Medical Advice [facility] Neurology [address] [phone] Yemi Bacon MD [address] [place] [address] Social History Tobacco Use Types Packs/Day [...] Description 01/12/2024 9:00 AM CDT Office Visit [facility] [address] [phone] Yemi Bacon MD [address] [place] [address] [place] [address] 02/14/2024 9:00 AM MEDICAL ASSISTANT SUPERVISOR Virtual Visit [facility] Multiple Sclerosis [address] [phone] Yemi Bacon MD [address] [place] [address] Natacha Meade [address] [address] documented as of this encounter Visit Diagnoses Not on filedocumented in this encounter Care Teams Provider Relations Manager Relationship Specialty Start Date End Date Nicanor Thomas MD [facility] [address] [address] PCP - General 07/13/05 Natacha Meade [facility] [address] [place] [address] [phone] Pharmacist Pharmacist 11/09/23 documented as of this encounter
--- OUTSIDE RECORDS SUMMARY | 2023-11-17 08:57 | XMS_ITS | Encounter Summary ---
Author Organization [place] Address [address] [place] [address]. [place] [address] Care Team Providers Care Self Propelled Mining Machine Operator Name Role Phone Nicanor Thomas MD Primary Care Provider Natacha Meade [facility] Unavailable [phone] Reason for Visit * Reason Onset Date Comments Prior Auth - Medication 11/10/2023 Radicava ORS Starter Kit 105MG/5ML suspension ([place] PENDING) Encounter Details Date Type Department Care Team (Late st Contact Info) Description 11/10/2023 Telephone [facility] [address] 3rd [place] [address] Yemi Bacon MD [address] [place] [address] [id number] [place] [address] Prior Auth - Medication (Radicava ORS Starter Kit 105MG/5ML suspension ([place] PENDING)) Social History Tobacco Use Types Packs/Day Years [...] encounter Miscellaneous Notes * Telephone Encounter - Jessica Ariza - 11/10/2023 10:42 AM CDT Images from the original note were not included. PA Initiation Medication: RADICAVA ORS STARTER KIT 105 MG/5ML PO SUSP Insurance Company: [employer] [place] - Pharmacy Filling the Rx: [facility] - [place], [place] - [address] Filling Pharmacy Phone: Filling Pharmacy Fax: Start Date: 11/10/2023 Thank you, Jessica Ariza [facility] Liaison - Cardiology Neurology Multiple Sclerosis [facility] [address] [address] [email or web address] documented in this encounter Plan of Treatment Upcoming Encounters Date Type Department Care Team (Late st Contact Info) Description 01/12/2024 9:00 AM CDT Office Visit [facility] Neurology [address] [phone] Yemi Bacon MD [address] [place] [address] [phone] 02/14/2024 9:00 AM MAINTENANCE PLANNER Virtual Visit [facility] Multiple Sclerosis [address] [phone] Yemi Bacon MD [address] [place] [phone] [phone] documented as of this encounter Visit Diagnoses Not on filedocumented in this encounter Care Teams Self Propelled Mining Machine Operator Relationship Specialty Start Date End Date Nicanor Thomas MD [facility] [address] [place] [address] PCP - General 07/13/05 Natacha Meade [facility] [address] [place] [address] Pharmacist Pharmacist 11/09/23 documented as of this encounter
--- OUTSIDE RECORDS SUMMARY | 2023-11-17 08:57 | XMS_ITS | Encounter Summary ---
Author Organization [place] Address [address] [place] [address]. [place] [address] Care Team Providers Care Airplane Gastank Liner Assembler Name Role Phone Nicanor Thomas MD Primary Care Provider Natacha Meade [facility] Unavailable [phone] Reason for Visit * Reason Onset Date Comments Prior Auth - Medication 11/14/2023 dextrome thorphan-quiNIDine (NUEDEXTA) 20-10 MG capsule -EPA DENIED Encounter Details Date Type Department Care Team (Late st Contact Info) Description 11/14/[address] [facility] [address] [place] [address] Yemi Bacon MD [address] [place] [address] [id number] [place] [address] Prior Auth - Medication (dextromethorphan-quiNI Dine (NUEDEXTA) 20-10 MG capsule -EPA DENIED) Social History Tobacco Use Types Packs/Day Years [...] encounter Miscellaneous Notes * Telephone Encounter - Gracia Doherty - 11/16/2023 10:39 AM CDT Images from the original note were not included. PRIOR AUTHORIZATION DENIED Medication: NUEDEXTA 20-10 MG PO CAPS Insurance Company: [employer] [place] - Denial Date: 11/12/2023 Denial Reason(s): Needs to try/fail Tricyclic Antidepressants Appeal Information: Patient Notified: No documented in this encounter Plan of Treatment Upcoming Encounters Date Type Department Care Team (Late st Contact Info) Description 01/12/2024 9:00 AM CDT Office Visit [facility] Neurology Clinic [address] [phone] Yemi Bacon MD [address] [place] [address] [phone] 02/14/2024 9:00 AM DIGITAL SOLUTIONS ARCHITECT Virtual Visit [facility] Multiple Sclerosis Clinic [address] [phone] Yemi Bacon MD [address] [place] [address] Natacha Meade RPH [address] [place] [address] documented as of this encounter Visit Diagnoses Not on filedocumented in this encounter Care Teams Airplane Gastank Liner Assembler Relationship Specialty Start Date End Date Nicanor Thomas MD [facility] [address] [place] [address] PCP - General 07/13/05 Natacha Meade RPH [address] [place] [address] Pharmacist Pharmacist 11/09/23 documented as of this encounter
--- OUTSIDE RECORDS SUMMARY | 2023-11-17 08:57 | XMS_ITS | Encounter Summary ---
Author Organization [place] Address [address] [place] [address]. [place] [address] Care Team Providers Care Structural Ironworker Name Role Phone Nicanor Thomas MD Primary Care Provider Natacha Meade [facility] Unavailable [phone] Encounter Details Date Type Department Care Team (Late st Contact Info) Description 11/10/2023 Allied Health/Nurse Visit [facility] Neurology Clinic [address] 3rd [place] [address] Yemi Bacon MD [address] [place] [address] [id number] [place] [address] ALS (amyotrophic lateral sclerosis) (H) (Primary Dx) [...] on file documented as of this encounter Nursing Notes * Karla Albarran - 11/10/2023 2:10 PM CDT Registry/Observational Study Patient was offered participation in the Multi-Site Natural History of ALS and other motor neuron disorders registry. The consent and HIPAA form was discussed and and explained to the patient. It was discussed that involvement with the study is voluntary and refusal to participate would not involve penalty or decrease benefits at which the patient is entitled,and the subject may discontinue his/her involvement at any time without penalty or loss in benefits. The patient was given time to review and ask any questions about the consent. Patient verbalized understanding of the study. A copy of the signed consent was given to the patient for their records. Subject Informed Consent and Authorization Form: SIGNED ON 11/10/2023 Multi-Site Natural History of ALS and other motor neuron disorders PI: Yemi Bacon MD Hand Candy Dipper: Karla Albarran [email or web address] documented in this encounter Plan of Treatment Upcoming Encounters Date Type Department Care Team (Late st Contact Info) Description 01/12/2024 9:00 AM CDT Office Visit [facility] Neurology Clinic [address] [place] [phone] Yemi Bacon MD [address] [place] [address] 02/14/2024 9:00 AM VALET ATTENDANT Virtual Visit [facility] Multiple Sclerosis [address] [phone] Yemi Bacon MD [address] [place] [address] [address] [address] documented as of this encounter Visit Diagnoses Diagnosis ALS (amyotrophic lateral sclerosis) (H)- Primary Amyotrophic lateral sclerosis documented in this encounter Care Teams Structural Ironworker Relationship Specialty Start Date End Date Nicanor Thomas MD [facility] [address] [address] PCP - General 07/13/05 Natacha Meade [facility] [address] [place] [address] Pharmacist Pharmacist 11/09/23 documented as of this encounter
--- OUTSIDE RECORDS SUMMARY | 2023-11-17 08:57 | XMS_ITS | Encounter Summary ---
Author Organization [place] Address [address] [place] [address]. [place] [address] Care Team Providers Care Salesperson Used Cars Name Role Phone Nicanor Thomas MD Primary Care Provider Baironparvez Natacha [facility] Unavailable [phone] Encounter Details Date Type Department Care Team (Latest Contact Info) Description 11/10/2023 Travel Social History Tobacco Use Types Packs/Day [...] Description 01/12/2024 9:00 AM CDT Office Visit [facility] Neurology Clinic [address] 3rd [place] [phone] Yemi Bacon MD [address] [place] [address] [id number] [place], [place] 0[address] 02/14/2024 9:00 AM PATTERNMAKER ALL AROUND Virtual Visit [facility] Multiple Sclerosis Clinic [address] [phone] Yemi Bacon MD [address] [facility] [id number] [place], [place] [address] Natacha Meade RPH [address] [place], [place] [phone] documented as of this encounter Visit Diagnoses Not on filedocumented in this encounter Care Teams Salesperson Used Cars Relationship Specialty Start Date End Date Nicanor Thomas MD [facility] [address] [place] [address] PCP - General 07/13/05 Natacha Meade Luis [facility] [address] [place] [address]69115 Pharmacist Pharmacist 11/09/23 documented as of this encounter
--- OUTSIDE RECORDS SUMMARY | 2023-11-17 08:57 | XMS_ITS | Encounter Summary ---
Author Organization [place] Address [address] [place] [address]. [place] [address] Care Team Providers Care Worm Sorter Name Role Phone Nicanor Thomas MD Primary Care Provider Natacha Meade [facility] Unavailable [phone] Reason for Visit * Consultation (Routine: Next available opening) - Pending Review Specialty Diagnoses / Procedures Referred By Paolo llanos Referred To Contact Genetics, Clinical Diagnoses ALS (amyotrophic lateral sclerosis) (H) Yemi Bacon MD [address] [facility] [id number] [place] [address] Referral ID Status Reason Start Date Expiration Date V isits Requested Visits Authorized [id number] Pending Review 11/04/2023 11/03/2024 1 1 Encounter Details Date Type Department Care Team (Late st Contact Info) Description 11/10/2023 7:30 AM CDT Virtual Visit [facility] [address] [place] [address] Clinic [address] Fl[address],[place] [address] Lisset Quiros, GC [address] [place] [address] Encounter for nonprocreative genetic counseling (Primary Dx); ALS (amyotrophic lateral sclerosis) (H) Social History Tobacco Use Types Packs/Day [...] as of this encounter Progress Notes * Lisset Quiros, GC - 11/10/2023 7:30 AM CDT Magaly Hinojosa was seen for a genetic counseling appointment at the request of Dr. Bacon today given her diagnosis of ALS. She was accompanied by her Jameson. Pertinent Medical History: Magaly is a 58 year old female with a history of bulbar onset ALS. See Dr. Bacon's note for additional details. Family History: A three generation pedigree was obtained today and scanned into the EMR. This family history is by patient report only and has not been verified with medical records except where noted. The following information is significant: Children- Son (age 39) who is alive and well. He has one son with down syndrome, one son who is alive and well and two daughters who are alive and well. Son (age 37) who is alive and well. He does not have children. Siblings- Sister (age 65) has Cheko's disease. She has two daughters and one son who are in their 30s-40sand are alive and well. Her grandchildren are alive and well. Maternal half brother (age 75) has a history of cancer. He has one daughter who previously had breast cancer and two other daughters who are alive and well. Paternal half sister (age 81) with Parkinson's disease. She has two sons who are alive and well. Paternal half brother (age 83) with Parkinson's disease. He has one son and one daughter who are alive and well. He has one son who at age 60 due to a heart attack. Paternal half brother with unspecified problems with the diaphragm that has lead to respiratory problems. This has been ongoing for about one year and the cause is unknown. He has two adopted daughters. Paternal half sister with a history of thyroid cancer. Parents- Father at age 85 due to parkinson's disease. Mother at age 87 due to heart disease Maternal Relatives- Mother was adopted. No information regarding maternal relatives is available Paternal Relatives- Father was adopted. No information regarding paternal relatives is available Family history is otherwise largely non-contributory. Ancestry and consanguinity is unknown. Discussion: Amyotrophic lateral sclerosis (ALS) is a condition that affects the motor neurons. Motor neurons are responsible for sending the necessary signals to the muscles, to allow for movement and speech. In ALS, these motor neurons break down and eventually lead to loss of speech and paralysis. Some individuals with ALS may also experience neuropsychological symptoms such as cognitive and/orbehavioral dysfunction or frontotemporal dementia (FTD) in severe cases. The progression of this condition is approximately three to five years, although it can vary with age of onset and between andwithin families. Historically, ALS has been categorized into familial ALS when an individual has two or more close relatives with ALS and sporadic ALS when an individual with ALS has no family history of the condition. ALS is not generally thought of as a genetic or inherited condition; howeverrecently several genetic factors have been found to be either causative or contributory. When a family history of ALS is identified then we have a strong suspicion that there is a causative genetic factor or genetic change (mutation) that predisposes members of the family to ALS. However, as more research and genetic testing has become available, individuals with seemingly sporadic ALS can have agene mutation identified. This may be due to a new (de kane) mutation in that individual or reducedpenetrance. Therefore, a negative family history cannot rule out a possible genetic form of ALS. About 10-15% of individuals with ALS are thought to have genetic ALS meaning a causative gene mutation has been identified. There are several genes that have been found to be associated with ALS and/or FTD. The most common genetic cause of ALS is a hexanucleotide repeat expansion (GGGGCC) in the C1lbf51 gene. The number of hexanucleotide repeats in the O5thq54 gene ranges from 2 to >4000. The precise cutoff of between normal and pathogenic (disease causing) is complicated by multiple factors, but generally <25 is considered normal and >60 is considered pathogenic. Repeat expansions in the I9bds98 gene account for approximately 39-45% of familial cases of ALS and about 3-7% of sporadic ALS. Other genes known to cause ALS include: SOD1, FUS, TARDBP, ANG, OPTN, FIG4, VAPB, UBQLN2, SETX, NEK1, VCP, ALS2, TDP43 (CHCHD10, DCTN1, MATR3, PFN1, TUBA4A, UNC13A, ATXN2). Genetic forms of ALS are typically inherited in an autosomal dominant pattern, meaning a change on one copy of the gene is sufficient to predispose an individual to the condition. Someone who possesses an ALS gene mutation would have a 1 in 2 (50%) chance of passing the gene mutation associated with ALS on to their children. It is import to know that not all people who inherit an ALS gene mutation will develop ALS. This is called reduced penetrance. For example, the penetrance or percent of individuals who develop ALS who have a mutation in SOD1 ranges from 50% to 90% by age 70, depending on the specific genetic mutation. It is assumed that other genes will also show reduced penetrance. We d iscussed that if the gene associated with ALS is NOT passed on; that child is NOT at an increased risk to develop symptoms because of this genetic change and CANNOT pass it on to their children. The only way to know if the genetic change is passed on is by genetic testing. We discussed the availability of genetic testing for ALS. The gold standard of ALS genetic testing is to begin testing the K3cmq47 gene to determine if an individual has a normal number of hexanucleotide repeats (<25) or an expanded number of hexanucleotide repeats (>60). If that testing identifies normal repeats on both copies of I7amf14, then testing can be expanded to a multi-gene panel to include the other genes associated with ALS. We went on to discuss the details, limitations, and possible outcomes of these multi-gene panels. In particular, we discussed that there are three possible results: Negative: meaning normal or no mutations are identified in the genes that were tested/sequenced Positive: meaning a mutation that is known to be associated with a particular set of symptoms is identified Variant of uncertain significance (VUS): meaning a change in the DNA sequence of a particular gene was seen but there is not enough information or data yet to know if it explains the symptoms. If a VUS is identified, testing of other relatives may be helpful to provide clarification. In most cases,identification of a VUS does not confirm a diagnosis and does not result in any clinically actionable recommendations. Even with the growing numbers of genes that have been identified, current clinically available genetic testing identifies a causative mutation in less than 40% families affected with familial ALS. Therefore, most of the time we cannot identify the genetic cause in individuals with ALS. If the results of genetic testing are negative, this cannot rule out the possibility that there may be an underlying genetic cause or component to an individual's ALS, as it is likely that the genetic cause of all forms of ALS have yet to be discovered. DNA banking is the process in which we can store an individual's DNA almost indefinitely to test at a later time when new genetic tests are available. Additionally, the DNA could be used in research with the participant's consent. This can be done for any genetic condition. It can also be done for conditions which are not thought to be genetic or where there isn't a known family history. Saving the sample may allow for testing as advances are made in diagnosis and treatment. DNA banking is available through many laboratories. Pre-symptomatic testing is an option ONLY if a familial mutation is identified in and affected individual. Pre-symptomatic testing is an individual choice. Some people prefer to know so they can be aware of any symptoms and seek appropriate medical care and for family planning. Other people find itdifficult to live in anticipation of the condition and prefer not to know. Future insurability is often a question for individuals undergoing pre-symptomatic testing. While there are federal and state laws that protect people from health insurance discrimination, there is not as much regulation on life and disability insurance. There are many things to consider when contemplating pre-symptomatic testing genetic counseling as well taking to a psychologist can help in the decision making process.As treatments for ALS are developed pre-symptomatic testing may be an avenue to detect those individuals at risk to develop ALS and provide preventative treatment. We reviewed the option to complete this testing via a sponsored research program or through insurance. Risks, benefits and limitations of these options were reviewed. Magaly expressed an excellent understanding of this information and decided to pursue this testing via the sponsored program. Plan: 1. Sponsored ALS panel with I8oyw54 and ATXN2 repeat analysis at [facility]. 2. Return pending results of above testing 3. Contact information was provided should any questions arise in the future. Lisset Quiros [facility] Genetic Counselor Division of Genetics and Metabolism (p) [phone] (f) [phone] Total time spent in consultation with the family was approximately 28 minutes Cc: No Letter documented in this encounter Plan of Treatment Upcoming Encounters Date Type Department Care Team (Late st Contact Info) Description 01/12/2024 9:00 AM CDT Office Visit [facility] Neurology Clinic [address] 3rd [place] [phone] Yemi Bacon MD [address] [place] [address] [phone] 02/14/2024 9:00 AM PROM BURN OFF OPERATOR Virtual Visit [facility] Multiple Sclerosis Clinic [address] [phone] Yemi Bacon MD [address] [place] [address] [id number] [address] [phone] documented as of this encounter Results * Other Laboratory; prevention genetics; sponsored ALS panel with X2hew22 and ATXN2 repeat analysis test code [id number] (Laboratory Miscellaneous Order) (11/10/2023 3:59 PM CDT) Specimen Status Specimen received. Reordered and sent to performing laboratory. Report to follow up on completion. [facility] 11/11/2023 1:24 PM CDT LABORATORY Performing Laboratory prevention genetics [facility] 11/11/2023 1:24 PM CDT [facility] - CORE LAB Test Name sponsored ALS panel with E1pis66 and ATXN2 repeat analysis test code [id number] [facility] 11/11/2023 1:24 PM CDT [facility] - CORE LAB Blood STRUCTURE OF RIGHT UPPER LIMB / Unknown Venipuncture / Unknown 11/10/2023 3:59 PM CDT 11/10/2023 3:59 PM CDT Yemi Bacon MD LAB - BLOOD ORDERABL ES LABORATORY [facility] Core Lab [address] [facility] [address], Room [address] [place] [address], [facility] CORE LAB [facility] [place] [address] [place] [address] 1st [place] [address] documented in this encounter Visit Diagnoses Diagnosis Encounter for nonprocreative genetic counseling- Primary ALS (amyotrophic lateral sclerosis) (H) Amyotrophic lateral sclerosis documented in this encounter Care Teams Worm Sorter Relationship Specialty Start Date End Date Nicanor Thomas MD [facility] [address] [place] [address] PCP - General 07/13/05 Natacha Meade RPH [address] [place] [address] Pharmacist Pharmacist 11/09/23 documented as of this encounter
--- OUTSIDE RECORDS SUMMARY | 2023-11-17 08:57 | XMS_ITS | Encounter Summary ---
Author Organization [place] Address [address] [place] [address]. [place] [address] Care Team Providers Care Bowling Ball Finisher Name Role Phone Nicanor Thomas MD Primary Care Provider Natacha Meade [facility] Unavailable [phone] Encounter Details Date Type Department Care Team (Late Contact Info) Description 11/10/2023 3:[address] [facility] [address] 1st [place] [phone] ALS (amyotrophic lateral sclerosis) (H) Social History [...] 01/12/2024 9:00 AM CDT Office Visit [facility] Neurology Clinic [address] 3rd [place] [phone] Yemi Bacon MD [address] [place] [address] [id number] [place] [address] 02/14/2024 9:00 AM WWE WRESTLER Virtual Visit [facility] Multiple Sclerosis Clinic [address] [phone] Yemi Bacon MD [address] [place] [address] [id number] [place], [place] [phone] Natacha Meade, [address] [address] Pending Results Name Type Priority Associated Diagnoses Date /Time Laboratory Miscellaneous Result Lab Routine ALS (amyotrophic lateral sclerosis) (H) 11/10/2023 3:59 PM CDT documented as of this encounter Procedures Procedure Name Priority Date/Time Associated Diagnosis Comments LABORATORY MISCELLANEOUS ORDER Routine 11/10/2023 3:59 PM CDT ALS (amyotrophic lateral sclerosis) (H) MUSCLE-SPECIFIC KINASE ANTIBODY SCREEN WITH REFLEX TO TITER Routine 11/10/2023 3:59 PM CDT ALS (amyotrophic lateral sclerosis) (H) HEPATIC FUNCTION PANEL Routine 3:59 PM CDT ALS (amyotrophic lateral sclerosis) (H) documented in this encounter Results * Muscle-Specific Kinase Antibody Screen with Reflex to Titer (11/10/2023 3:59 PM CDT) Muscle-Specific Kinase Antibody Screen <1:10 <1:10 11/14/2023 10:59 PM CDT [facility] Comment: MuSK Antibody, IgG is not detected. [...] developed and its performance characteristics determined by [facility]. It has not been cleared or approved by the U.S. Food and Drug Administration. This test was performed in a CLIA-certified laboratory and is intended for clinical purposes. Performed By: [facility] [address] [place] [address] Anodic Treater: Fidel Cornell MD, PhD CLIA Number: [id number] Blood BLOOD SPECIMEN / Unknown Venipuncture / Unknown 11/10/2023 3:59 PM CDT 11/10/2023 3:59 PM CDT Yemi Bacon MD LAB - BLOOD ORDERABL ES Performing Organization Address [facility]/ZIP Co de Phone Number [facility] [address] [place] [address], [place] [phone] * Other Laboratory; prevention genetics; sponsored ALS panel with [id number] and ATXN2 repeat analysis test code 98256 (Laboratory Miscellaneous Order) (11/10/2023 3:59 PM CDT) Specimen Status Specimen received. Reordered and sent to performing laboratory. Report to follow up on completion. [facility] 11/11/2023 1:24 PM CDT LABORATORY Performing Laboratory prevention genetics [facility] 11/11/2023 1:24 PM CDT [facility] Test Name sponsored ALS panel with [id number] and ATXN2 repeat analysis test code 60151 [facility] 11/11/2023 1:24 PM CDT [facility] Blood STRUCTURE OF RIGHT UPPER LIMB / Unknown Venipuncture / Unknown 11/10/2023 3:59 PM CDT 11/10/2023 3:59 PM CDT Yemi Bacon MD LAB - BLOOD ORDERABL ES LABORATORY [facility] [address] [facility] [address] Building, Room 3-580 [place] [address], [place] [facility] Clin[facility] [place] - [address] 1st [place] [address] * Hepatic panel (11/10/2023 3:59 PM CDT) Protein Total 7.2 6.4 - 8.3 g/dL 11/10/2023 4:26 PM CDT [facility] Albumin 4.4 3.5 - 5.2 g/dL 11/10/2023 4:26 PM CDT [facility] Bilirubin Total 0.3 <=1.2 mg/dL 11/10/2023 4:26 PM CDT [facility] Alkaline Phosphatase 70 40 - 150 U/L 11/10/2023 4:26 PM CDT [facility] AST 23 0 - 45 U/L 11/10/2023 4:26 PM CDT [facility] ALT 14 0 - 50 U/L 11/10/2023 4:26 PM CDT [facility] Bilirubin Direct <0.20 0.00 - 0.30 mg/dL 11/10/2023 4:26 PM CDT [facility] Blood STRUCTURE OF RIGHT UPPER LIMB / Unknown Venipuncture / Unknown 11/10/2023 3:59 PM CDT 11/10/2023 3:59 PM CDT Yemi Bacon MD LAB - BLOOD ORDERABL ES [facility] - [address] [place] [address] documented in this encounter Visit Diagnoses Diagnosis ALS (amyotrophic lateral sclerosis) (H) Amyotrophic lateral sclerosis documented in this encounter Care Teams Bowling Ball Finisher Relationship Specialty Start Date End Date Nicanor Thomas MD [facility] [address] [place] [address] PCP - General 07/13/05 Natacha Meade RPH [address] [place] [address] Pharmacist Pharmacist 11/09/23 documented as of this encounter
--- OUTSIDE RECORDS SUMMARY | 2023-11-17 08:57 | XMS_ITS | Clinical Summary ---
Author Organization [place] Address [address] [place] [address]. [place] [address] Care Team Providers Care Hunting Guide Name Role Phone Felipe Thomas MD Primary Care Provider Natacha Meade [facility] Unavailable [phone] Allergies Active Allergy Reactions Criticality Noted Date [...] twice daily 60 capsule 2 11/10/2023 Active Encounters Date Type Department Care Team Description 11/14/2023 Telephone [facility] Neurology [address] [phone] Yemi Bacon MD Prior Auth - Medication (dextromethorphan-quiNI Dine (NUEDEXTA) 20-10 MG capsule -EPA DENIED) 11/11/2023 MyC Medical Advice [facility] Neurology [address] [phone] Yemi Bacon MD 11/10/2023 3:45 PM CDT Lab [facility] Lab [address] [phone] ALS (amyotrophic lateral sclerosis) (H) 11/10/2023 2:15 PM CDT Therapy Visit [facility] Rehabilitation Services [address] [phone] Katerina Cervantes, ICING COATER ALS (amyotrophic lateral sclerosis) (H) (Primary Dx); Dysarthria; Oropharyngeal dysphagia 11/10/2023 1:00 PM CDT Office Visit [facility] Neurology [address] [phone] Yemi Bacon MD ALS (amyotrophic lateral sclerosis) (H) (Primary Dx) 11/10/2023 7:30 AM CDT Virtual Visit [facility] [address] [facility] [address],[place] [phone] Lisset Quiros, GC Encounter for nonprocreative genetic counseling (Primary Dx); ALS (amyotrophic lateral sclerosis) (H) 11/10/2023 MyC Medical Advice [facility] Neurology [address] [phone] Yemi Bacon MD 11/10/2023 Allied Health/Nurse Visit [facility] Neurology [address] [phone] Yemi Bacon MD ALS (amyotrophic lateral sclerosis) (H) (Primary Dx) 11/10/2023 Travel 11/10/2023 Telephone [facility] Neurology [address] [phone] Yemi Bacon MD Prior Auth - Medication (Radicava ORS Starter Kit 105MG/5ML suspension (PA PENDING)) 11/10/2023 Telephone [facility] Neurology [address] [phone] Yemi Bacon MD Medication Request (Nuedexta) 11/09/2023 9:00 AM CDT Virtual Visit [facility] Multiple Sclerosis [address] [phone] Yemi Bacon MD Puchalla, Sara, RPH ALS (amyotrophic lateral sclerosis) (H) (Primary Dx); Anxiety; Hypothyroidism; Seasonal allergic rhinitis, unspecified trigger; Vasomotor symptoms due to menopause 11/09/2023 Refill [facility] Multiple Sclerosis [address] [phone] Natacha Meade RPH Refill Request 11/09/2023 MyC Medical Advice [facility] Multiple Sclerosis [address] [phone] Natacha Meade RPH 11/08/2023 Orders Only [facility] Neurology [address] [phone] Irma Batista LPN ALS (amyotrophic lateral sclerosis) (H) (Primary Dx) 11/02/2023 1:30 PM CDT Office Visit [facility] Neurology Clinic [address] [phone] Yemi Bacon MD ALS (amyotrophic lateral sclerosis) (H) (Primary Dx); Acquired amyotrophic lateral sclerosis (H) 11/02/2023 1:00 PM CDT Office Visit [facility] Pulmonary Function Testing [address] [phone] Muscle weakness (generalized) 11/02/2023 Travel 10/28/2023 Orders Only [facility] Neurology Clinic [address] [phone] Irma Batista LPN Muscle weakness (generalized) (Primary Dx) 10/28/2023 Telephone [facility] Neurology [address] [phone] None Referral (ALS Multidisciplinary Clinic/) 10/27/2023 Transcribe Orders GENERIC EXTERNAL DATA DEPARTMENT Provider, Generic External Data Acquired amyotrophic lateral sclerosis (H) (Primary Dx) from Last 3 Months Immunizations Name Administration Dates Next Due COVID-19 MONOVALENT 12+ (Pfizer) 04/15/2020,03/05 D6h4-52 Novel Flu 02/10/2009 Hepatitis A (ADULT 19+) 11/15/2022,03/22/2014 Influenza (intradermal) 01/30/2014 Influenza Vaccine 18-64 (Flublok) 01/26/2022,01/2019 Influenza Vaccine >6 months,quad, PF 12/2016,01/21/2016,01/08/2015,2008 Influenza, seasonal, injectable, PF 01/03,01/11/2018,01/02/2013,2011,01/12/2011,01/07/2010 TDAP (Adacel,Boostrix) 12/20/2017 Typhoid IM 11/15/2022,03/22/2014 Zoster recombinant adjuvante d (SHINGRIX) 08/01/2023,01/06/2023 Family History Medical History Relation Comments Clarissa. Father PINZON at 60 yrs old , [...] Description 01/12/2024 9:00 AM CDT Office Visit [facility] Neurology Clinic [address] 3rd [place] [phone] Yemi Bacon MD [address] [place] [address] [id number] [place] [address] 02/14/2024 9:00 AM SHOTBLAST EQUIPMENT OPERATOR Virtual Visit [facility] Multiple Sclerosis Clinic [address] [phone] Yemi Bacon MD [address] [facility] [id number] [place], [place] [address] Baironparvez Natacha, [facility] [address] [place], [place] [phone] Health Maintenance Due Date Last Done Comments [...] MAMMO SCREENING 01/02/2009 01/02/2007 LIPID 08/03/2010 08/03/2005 INFLUENZA VACCINE (#1) 2023 2, 01/22/2020, 01/11/2019, Additional history exists DTAP/TDAP/TD IMMUNIZATION (2 - Td or Tdap) 12/21/2027 12/20/2017 COVID-19 Vaccine Completed 03/03/2023, 01/2023, 02/08/2021, Additional history exists ZOSTER IMMUNIZATION Completed 08/01/2023, 3 PHQ-2 (once per calendar year) Completed 11/10/2023 HPV IMMUNIZATION Aged Out No longer e [...] PM CDT ALS (amyotrophic lateral sclerosis) (H) [place] RESPIRATORY FLOW VOLUME LOOP Routine 11/02/2023 1:02 PM CDT Muscle weakness (generalized) [place] MIP/MEP Routine 11/02/2023 1:02 PM CDT Muscle [...] Laboratory; prevention genetics; sponsored ALS panel with [id number] and ATXN2 repeat analysis test code 02304 (Laboratory Miscellaneous Order) (11/10/2023 3:59 PM CDT) Specimen Status Specimen received. Reordered and sent to performing laboratory. Report to follow up on completion. [facility] 11/11/2023 1:24 PM CDT [facility] Performing Laboratory prevention genetics [facility] 11/11/2023 1:24 PM CDT [facility] - CORE LAB Test Name sponsored ALS panel with B7ejx27 and ATXN2 repeat analysis test code 87259 [facility] 11/11/2023 1:24 PM CDT [facility] - CORE LAB Blood STRUCTURE OF RIGHT UPPER LIMB / Unknown Venipuncture / Unknown 11/10/2023 3:59 PM CDT 11/10/2023 3:59 PM CDT Yemi Bacon MD LAB - BLOOD ORDERABL ES LABORATORY [facility] Core Lab [address] [facility] Building, Room 3-580 [place] [address] - CORE LAB [facility] Clin[facility] [place] [facility] [address] [facility] 1st [place] [address] * Muscle-Specific Kinase Antibody Screen with Reflex to Titer (11/10/2023 3:59 PM CDT) [facility] Muscle-Specific Kinase Antibody Screen <1:10 <1:10 11/14/2023 10:59 PM CDT [facility] [employer] Comment: MuSK Antibody, IgG is not detected. [...] developed and its performance characteristics determined by [facility]. It has not been cleared or approved by the U.S. Food and Drug Administration. This test was performed in a CLIA-certified laboratory and is intended for clinical purposes. Performed By: [facility] [address] [place] [address] Informatics Physician: Fidel Cornell MD, PhD CLIA Number: [id number] Blood BLOOD SPECIMEN / Unknown Venipuncture / Unknown 11/10/2023 3:59 PM CDT 11/10/2023 3:59 PM CDT Yemi Bacon MD LAB - BLOOD ORDERABL ES [place] [address] [place] [phone], [facility] [phone] * Hepatic panel (11/10/2023 3:59 PM CDT) Protein Total 7.2 6.4 - 8.3 g/dL 11/10/2023 4:26 PM CDT [facility] - CORE LAB Albumin 4.4 3.5 - 5.2 g/dL 11/10/2023 4:26 PM CDT [facility] - CORE LAB Bilirubin Total 0.3 <=1.2 mg/dL 11/10/2023 4:26 PM CDT [facility] - CORE LAB Alkaline Phosphatase 70 40 - 150 U/L 11/10/2023 4:26 PM CDT [facility] - CORE LAB AST 23 0 - 45 U/L 11/10/2023 4:26 PM CDT [facility] - CORE LAB ALT 14 0 - 50 U/L 11/10/2023 4:26 PM CDT [facility] - CORE LAB Bilirubin Direct <0.20 0.00 - 0.30 mg/dL 11/10/2023 4:26 PM CDT [facility] - CORE LAB Blood STRUCTURE OF RIGHT UPPER LIMB / Unknown Venipuncture / Unknown 11/10/2023 3:59 PM CDT 11/10/2023 3:59 PM CDT Yemi Bacon MD LAB - BLOOD ORDERABL ES [facility] - CORE LAB [facility] Clinics and Surgery [address] 1st [place] [address] * Pulmonary Function Test (11/02/2023 12:50 PM CDT) FVC-Pred 3.14 L [facility]FT FVC-Pre 3.29 L [facility] PFT FVC-%Pred-Pre 104 % [facility] FEV1-Pre 2.67 L [facility] PFT FEV1-%Pred-Pre 107 % [facility]FT [id number] 80 % [facility] PFT [id number]-Maq 81 % [facility] FEFMax-Pred 6.63 L/sec [facility] PFT FEFMax-Pre 5.47 L/sec [facility] PFT FEFMax-%Pred-Pr e 82 % [facility] PFT [id number] 2.27 L/sec [facility] PFT [id number] 2.74 L/sec [facility] PFT RBQ2388-%Pred-P re 120 % [facility] PFT ExpTime-Pre 5.71 sec [facility]REEZE PFT FIFMax-Pre 2.04 L/sec [facility] MEP-Pre 70 cmH2O [facility] PFT MIP-Pre -50 cmH2O [facility]REE[facility] PFT [id number] 81 % [facility] PFT [id number]-Pyu 82 % [facility] 11/02/2023 12:5 0 PM CDT Narrative [facility] - 11/03/2023 6:37 PM CDT The FVC, FEV1, FEV1/FVC ratio and KWF23-45% are within normal limits. IMPRESSION: Normal Spirometry. [...] CDT) Glucose 88 60 - 110 mg/dL [facility] 08/03/2005 9:11 AM CDT 08/03/2005 9:13 AM CDT Felipe Thomas MD LABORATORY [facility] * (ABNORMAL) A.M.A. LIPID PANEL (08/03/2005 9:11 AM CDT) Cholesterol 147 0 - 200 mg/dL [facility] Comment: LDL Cholesterol is the primary guide to therapy: LDL-cholesterol goal in high risk patients is <100 mg/dL and in very high risk patients is <70 mg/dL. The NCEP recommends further evaluation of: patients with cholesterol <200 mg/dL if additional risk factors are present, cholesterol >240 mg/dL, triglycerides >150 mg/dL, or HDL <40 mg/dL. Triglycerides 73 0 - 150 mg/dL [facility] HDL Cholesterol 45(L) 50 - 110 mg/dL [facility] LDL Cholesterol Calculated 87 0 - 129 mg/dL [facility] Comment: LDL Cholesterol is the primary guide to therapy: LDL-cholesterol goal in high risk patients is <100 mg/dL and in very high risk patients is <70 mg/dL. VLDL-Cholesterol 15 0 - 30 mg/dL [facility] Cholesterol/HDL Ratio 3.2 0.0 - 5.0 [facility] 08/03/2005 9:11 AM CDT 08/03/2005 9:13 AM CDT Felipe Thomas MD LABORATORY [facility] * TSH W/FREE T4 REFLEX (07/20/2005 11:40 AM CDT) TSH 3.64 0.4 - 5.0 mU/L [facility] 07/20/2005 11:4 0 AM CDT 07/20/2005 11:42 AM CDT Felipe Thomas MD LABORATORY [facility] * A THIN LAYER PAP SCREEN (07/20/2005 12:00 AM CDT) PAP NIL COPATH Copath Report Patient Name: MAGALY HINOJOSA MR#: [id number] Specimen #: [id number] Collected: 07/20/2005 Received: 07/21/2005 Reported: 07/22/2005 08:34 [...] HUBER Finn (ASCP) Processed and screened at [facility], [facility] CLINICAL HISTORY: Irregular Bleeding Other: spotting, Previous normal pap Date of Last Pap: 3 Other: history previous abnormal 8 years ago/colpo normal paps since that time), TESTING LAB LOCATION: [address] ??[phone] COLLECTION SITE: Client: ??[facility] Location: [facility] (R) COPATH 07/20/2005 07/21/2005 10: 18 AM CDT Felipe Thomas MD LABORATORY COPATH from Last 3 Months or Most Recently Relevant to Health Maintenance Care Teams Hunting Guide Relationship Specialty Start Date End Date Felipe Thomas MD COUNTS INCLUDE [facility] [address] [place] [address] PCP - General 07/13/05 Natacha Meade [facility] [address] [place] [address] Pharmacist Pharmacist 11/09/23
--- OUTSIDE RECORDS SUMMARY | 2023-11-17 08:57 | XMS_ITS | Encounter Summary ---
Author Organization [place] Address [address] [place] [address]. [place] [address] Care Team Providers Care Health Information Director Name Role Phone Nicanor Thomas MD Primary Care Provider Natacha Meade [facility] Unavailable [phone] Reason for Referral * Medication Prior Authorization - Denied Specialty Diagnoses / Procedures Referred By Paolo llanos Referred To Contact Diagnoses ALS (amyotrophic lateral sclerosis) (H) Yemi Bacon MD [address] [place] [address] Referral ID Status Reason Start Date Expiration Date Visits Re quested Visits Authorized [id number] Denied 11/10/2023 11/09/2024 1 1 Reason for Visit * Reason Onset Date Comments Medication Request 11/10/2023 Nuedexta Encounter Details Date Type Department Care Team ([facility] st Contact Info) Description 11/10/[address] [facility] Neurology Clinic [address] 3rd [place] [address] Yemi Bacon MD [address] [place] [phone] Medication Request (Nuedexta) Social History Tobacco Use Types Packs/Day Years [...] Notes * Telephone Encounter - Natacha Meade RPH - 11/10/2023 9:09 AM CDT Sending Nuedexta per verbal order from Dr. Bacon. Natacha Meade, PharmD, BCACP Medication Therapy Management Pharmacist [facility] documented in this encounter Plan of Treatment Upcoming Encounters Date Type Department Care Team (Late st Contact Info) Description 01/12/2024 9:00 AM CDT Office Visit [facility]rology Clinic [address] [phone] Yemi Bacon MD [address] [place] [phone] 02/14/2024 9:00 AM WIRE BORDER ASSEMBLER Virtual Visit [facility] Multiple Sclerosis Clinic [address] [phone] Yemi Bacon MD [address] [place] [phone] Natacha Meade RPH [address] [place] [phone] documented as of this encounter Visit Diagnoses Diagnosis ALS (amyotrophic lateral sclerosis) (H)- Primary Amyotrophic lateral sclerosis documented in this encounter Care Teams Health Information Director Relationship Specialty Start Date End Date Nicanor Thomas MD [facility] [address] [place] [address] PCP - General 07/13/05 Natacha Meade [facility] [address] [place] [phone] Pharmacist Pharmacist 11/09/23 documented as of this encounter
--- OUTSIDE RECORDS SUMMARY | 2023-11-17 08:58 | XMS_ITS | Encounter Summary ---
Author Organization [facility] Address [address] [place] [address] Care Team Providers Care Property Inspector Name Role Phone Unavailable Primary Care Provider Unavailabl e Encounter Details Date Type Department Care Team (Late st Contact Info) Description 10/28/2023 Orders Only Pharmacy Prior Auth [facility] [phone] Chel Snyder Social History Tobacco Use Types Packs/Day Years Used Date Smoking Tobacco: Never Smokeless Tobacco: Never Alcohol Use Standard Drinks/Week Comments Yes 5 (1 standard drink = 0.6 oz pur e alcohol) [facility] Utilities Answer Date Recorded In the [...] your living situation today? I have a [facility] place to live 10/22/2023 Sex and [...]
--- OUTSIDE RECORDS SUMMARY | 2023-11-17 08:58 | XMS_ITS | Encounter Summary ---
Author Organization [facility] Address [address] [place] [address]. [place] [address] Care Team Providers Care Fur Cleaner Name Role Phone Nicanor Thomas MD Primary Care Provider Natacha Meade [facility] Unavailable [phone] Reason for Visit * Reason Comments Medication Therapy Management * Med Therapy Management (Routine: Next available opening) - Closed Specialty Diagnoses / Procedures Referred By Contac t Referred To Contact Pharmacist Diagnoses ALS (amyotrophic lateral sclerosis) (H) Yemi Bacon MD [address] [place] [id number] Referral ID Status Reason Start Date Expiration Date Visits Re quested Visits Authorized [id number] Closed 11/04/2023 11/03/2024 1 1 Encounter Details Date Type Department Care Team (Late st Contact Info) Description 11/09/2023 9:00 AM CDT Virtual Visit [facility] Multiple Sclerosis [address] [address] Yemi Bacon MD [address] [place] [id number] Natacha Meade, [address] [id number] ALS (amyotrophic lateral sclerosis) (H) (Primary Dx); Anxiety; Hypothyroidism; Seasonal allergic rhinitis, unspecified trigger; Vasomotor symptoms due to menopause Social History Tobacco Use Types Packs/Day Years [...] on file documented as of this encounter Patient Instructions * Patient Instructions* Natacha Meade, [facility] - 11/09/2023 9:00 AM CDT Recommendations from today's MTM visit: Today we reviewed what your medicines are for, how to know if they are working, that your medicinesare safe and how to make your medicine regimen as easy as possible. Continue riluzole 50mg twice daily. You will be due for liver enzyme lab monitoring after taking the medication for about a month. Usually we have patients complete these labs monthly for the first 3months of treatment. If orders have not already been sent to [facility], we will get these faxed over. Today we discussed starting Radicava ORS to help slow the progression of ALS: Directions: Take 5 mL in the morning upon waking after fasting at least 8 hours and at least 1 hourbefore your first meal of the day. You may take Radicava at the same time as riluzole and Nuedexta. For month 1, you will take Radicava once daily for 14 days, then will NOT take the medication for 14 days For subsequent months, you will take Radicava once daily for 10 days, then will NOT take the medication for 18 days It can be helpful to parag on a calendar the days you take the medication Side effects of Radicava can include: bruising, abnormal gait, and headache. Shake medication well prior to each use (about 30 seconds) and the medication can be stored at roomtemperature Additional information about how to take Radicava can be found here: [email or web address] Radicava will be filled at [facility] (unless your insurance requires a different pharmacy). Once the prior authorization is approved, they will call you to set up the first order and then they will mail the prescription to your home. Today we discussed starting Nuedexta (dextromethorphan 20mg/quinidine 10mg) to attempt to help withspeech and swallowing. Directions: Take one capsule once daily for a week and then increase to one capsule twice daily Possible side effects- diarrhea I will help enroll you in Nuedexta's copay card program to help lower the patel and help you fill out the Radicava Journey [facility] program paperwork tomorrow in clinic. Follow-up: 02/14/2024 at 9AM via phone call It was great speaking with you today. I value your experience and would be very thankful for your time in providing feedback in our clinic survey. In the next few days, you may receive an email or text message from [facility] with a link to a survey related to your ???clinical pharmacist. To schedule another MTM appointment, please call the clinic directly or you may call the MTM scheduling line at [phone] or toll-free at . My Clinical Pharmacist's contact information: Please feel free to contact me with any questions or concerns you have. Natacha Meade, PharmD, [facility] Medication Therapy Management Pharmacist [facility] Neurology documented in this encounter Progress Notes * Natacha Meade RPH - 11/09/2023 9:00 AM CDT Medication Therapy Management (MTM) Encounter ASSESSMENT: Medication Adherence/Access: No issues identified ALS: Patient may benefit from starting Radicava to slow progression of ALS. Educated patient on possibleside effects, dosing schedule and how to properly administer the medication. Will have prior authorization for Radicava started and send prescription to [facility] unless insurance requires different pharmacy. Patient is tolerating riluzole and will plan to continue. She will be for LFT monitoring labs monthly for the first 3 months of treatment. She prefers to have these completed close to home and will have these orders faxed if not already done so. Reviewed Nuedexta indication, side effects, and administration. Will send to preferred pharmacy and get patient signed up for copay card to reduce medication patel. Patient is understanding of above and questions were answered. Mental Health Anxiety Controlled, continue with as needed alprazolam. Hypothyroidism Symptoms are stable. Recommend continue current levothyroxine dose and to continue to follow up with primary care provider for lab monitoring and dose adjustments. Allergies Controlled, continue current medication regimen. Vasomotor symptoms Well controlled, continue with current medication regimen. PLAN: Continue riluzole 50mg twice daily. You will be due for liver enzyme lab monitoring after taking the medication for about a month. Usually we have patients complete these labs monthly for the first 3months of treatment. If orders have not already been sent to [facility], we will get these faxed over. Today we discussed starting Radicava ORS to help slow the progression of ALS: Directions: Take 5 mL in the morning upon waking after fasting at least 8 hours and at least 1 hourbefore your first meal of the day. You may take Radicava at the same time as riluzole and Nuedexta. For month 1, you will take Radicava once daily for 14 days, then will NOT take the medication for 14 days For subsequent months, you will take Radicava once daily for 10 days, then will NOT take the medication for 18 days It can be helpful to parag on a calendar the days you take the medication Side effects of Radicava can include: bruising, abnormal gait, and headache. Shake medication well prior to each use (about 30 seconds) and the medication can be stored at roomtemperature Additional information about how to take Radicava can be found here: [email or web address] Radicava will be filled at [facility] (unless your insurance requires a different pharmacy). Once the prior authorization is approved, they will call you to set up the first order and then they will mail the prescription to your home. Today we discussed starting Nuedexta (dextromethorphan 20mg/quinidine 10mg) to attempt to help withspeech and swallowing. Directions: Take one capsule once daily for a week and then increase to one capsule twice daily Possible side effects- diarrhea I will help enroll you in Nuedexta's copay card program to help lower the patel and help you fill out the Radicava Journey Mate program paperwork tomorrow in clinic. Follow-up: 02/14/2024 at 9AM via phone call SUBJECTIVE/OBJECTIVE: Magaly Hinojosa is a 58 year old female seen for an initial visit. She was referred to me from Dr. Bacon. Patient was accompanied by her Jameson. Reason for visit: Initial MTM to start Radicava. Allergies/ADRs: Reviewed in chart Past Medical History: Reviewed in chart Tobacco: She reports that she has never smoked. She does not have any smokeless tobacco history on file. Alcohol: 5 drinks per week Medication Adherence/Access: no issues reported ALS: -Riluzole 50mg twice daily. Recently started about a few weeks ago Patient reports no current medication side effects Will be due for LFT's and requests to have these completed at [facility] her home. She will be starting Nuedexta and Radicava. Patient has questions on efficacy, adverse reactions, cost, and mechanism of action. Mental Health Anxiety -Alprazolam 0.5mg once three times daily as needed. Does not take but keeps on hand Patient reports no current medication side effects. Patient reports symptoms are stable. Hypothyroidism -Levothyroxine 50 mcg daily. Patient is having the following symptoms: none. Managed by per primary care provider Allergies -Cetirizine 10mg once daily Patient reports allergies are controlled Vasomotor symptoms -Venlafaxine 37.5mg once daily Symptoms well controlled with current medication. Today's Vitals: There were no vitals taken for this visit. I spent 41 minutes with this patient today. I offer these suggestions for consideration by Dr. Bacon. A copy of the visit note was provided to the patient's provider(s). A summary of these recommendations was sent via [employer]. Natacha Meade, PharmD, BCACP Medication Therapy Management Pharmacist [facility] Telemedicine Visit Details Type of service: Telephone visit Start Time: 9:00 AM End Time: 9:41 AM Medication Therapy Recommendations No medication therapy recommendations to display documented in this encounter Plan of Treatment Upcoming Encounters Date Type Department Care Team (Late st Contact Info) Description 01/12/2024 9:00 AM CDT Office Visit [facility] [address] [place] [address] Yemi Bacon MD [address] [place] [phone] 02/14/2024 9:00 AM PODIATRIST ASSISTANT Virtual Visit [facility] [address] [address] Yemi Bacon MD [address] [place] [address] Natacha Meade RPH [address] [place] [phone] Scheduled Referrals Name Type Priority Associated Diagnoses Orde r Schedule Med Therapy Management Referral Referral Routine: Next available opening ALS (amyotrophic lateral sclerosis) (H) Ordered: 11/04/2023 documented as of this encounter Visit Diagnoses Diagnosis ALS (amyotrophic lateral sclerosis) (H)- Primary Amyotrophic lateral sclerosis Anxiety Anxiety state, unspecified Hypothyroidism Unspecified hypothyroidism Seasonal allergic rhinitis, unspecified trigger Vasomotor symptoms due to menopause documented in this encounter Care Teams Fur Cleaner Relationship Specialty Start Date End Date Nicanor Thomas MD [facility] [address] [address] PCP - General 07/13/05 Natacha Meade RPH [address] [place] [phone] Pharmacist Pharmacist 11/09/23 documented as of this encounter
--- OUTSIDE RECORDS SUMMARY | 2023-11-17 08:58 | XMS_ITS | Encounter Summary ---
Author Organization [facility] Address [address] [place] [address]. [place] [address] Care Team Providers Care Ventilated Rib Fitter Name Role Phone Nicanor Thomas MD Primary Care Provider Encounter Details Date Type Department Care Team (Late Contact Info) Description 10/28/2023 Orders Only [facility] Neurology [address] [address] Irma Batista LPN Muscle weakness [...] Description 01/12/2024 9:00 AM CDT Office Visit [facility] Neurology [address] [address] Yemi Bacon MD [address] [place] [address] [id number] [place] [address] 02/14/2024 9:00 AM DECKHAND Virtual Visit [facility] Multiple Sclerosis [address] [phone] Yemi Bacon MD [address] [place] [address] [id number] [place], [place] [phone] Halina Natacha, [address] [id number] documented as of this encounter Results * Pulmonary Function Test (11/02/2023 12:50 PM CDT) [facility] Signature FVC-Pred 3.14 L [facility] FVC-Pre 3.29 L [facility] FVC-%Pred-Pre 104 % [facility] FEV1-Pre 2.67 L [facility] FEV1-%Pred-Pre 107 % [facility] [id number] 80 % [facility] [id number] 81 % [facility] FEFMax-Pred 6.63 L/sec [facility] FEFMax-Pre 5.47 L/sec [facility] FEFMax-%Pred-Pr e 82 % [facility] [id number] 2.27 L/sec [facility] [id number] 2.74 L/sec [facility] [id number]-%Pred-P re 120 % [facility] ExpTime-Pre 5.71 sec [facility] FIFMax-Pre 2.04 L/sec [facility] MEP-Pre 70 cmH2O [facility] MIP-Pre -50 cmH2O [facility] [id number] 81 % [facility] [id number] 82 % [facility] 11/02/2023 12:5 0 PM CDT Narrative [facility] - 11/03/2023 6:37 PM CDT The FVC, FEV1, FEV1/FVC ratio and IOT30-49% are within normal limits. IMPRESSION: Normal Spirometry. MIP and MEP are reduced. ?This interpretation has been electronically signed: ??RIOS CHRISTIANSON 11/03/2023 ??06:09:20 PM? Yemi Bacon MD PFT ORDERABLES [facility] documented in this encounter Visit Diagnoses Diagnosis Muscle weakness (generalized)- Primary Muscle weakness (generalized) documented in this encounter Care Teams Ventilated Rib Fitter Relationship Specialty Start Date End Date Nicanor Thomas MD [facility] [address] [facility] [address] [place] [address] PCP - General 07/13/05 documented as of this encounter
--- OUTSIDE RECORDS SUMMARY | 2023-11-17 08:58 | XMS_ITS | Clinical Summary ---
Author Organization [facility] Address [address] [place] [address] Care Team Providers Care Corporate Relations Director Name Role Phone Unavailable Primary Care Provider Unavailabl e Source Comments Patient records contain information from all sites at [facility]. For routine questions regarding patient records, call [phone] during business hours, M-F 8:00 AM - 5:00 PM Central Time. Record requests for emergency care only can be directed to [phone] at any time.[facility] Allergies Active Allergy Reactions Criticality Noted [...] Encounters Date Type Department Care Team Description 11/15/2023 Clinical Communication Department of Neurology in [address] [phone] Tyson Carreon M.D. Letter to support Out of Network ([facility]) 11/08/2023 Clinical Communication Department of Neurology in [address] [phone] Tyson Carreon M.D. Communication 11/07/2023 Clinical Communication Department of Cardiovascular Diseases in [address] [phone] Tyson Carreon M.D. Med Question 10/28/2023 Orders Only Pharmacy Prior Auth RO [phone] Chel Snyder 10/27/2023 Orders Only Pharmacy Prior Auth RO [phone] Margy Teran 10/26/2023 Clinical Communication Department of Neurology in [place], [place] [address] [place] [address] Tyson Carreon M.D. Rx Prior Authorization ([facility] ) 10/25/2023 3:30 PM CDT Office Visit Department of Neurology in [address] [phone] Tyson Carreon M.D. Sclerosis Lateral Amyotrophic (HCC) (Primary Dx) Discharge Disposition: Home or Self Care 10/19/2023 7:11 AM CDT - 10/19/2023 11:59 PM CDT Hospital Encounter Department of Neurology in [address] [phone] Tyson Carreon M.D. Other Motor Neuron Disease (HCC) Discharge Disposition: Home or Self Care 10/18/2023 Clinical Communication Department of Neurology in [address] [phone] Tyson Carreon M.D. Follow-up Orders (MRI in [place] ) 10/17/2023 2:11 PM CDT - 10/17/2023 11:59 PM CDT Hospital Encounter Department of Laboratory Medicine in [address] [phone] Tyson Carreon M.D. Other Motor Neuron Disease (HCC) Discharge Disposition: Home or Self Care 10/17/2023 1:00 PM CDT Office Visit Department of Neurology in [address] [phone] Tyson Carreon M.D. Sclerosis Lateral Amyotrophic (HCC) (Primary Dx); Other Motor Neuron Disease (HCC); Anterior Horn Cell Disease (HCC) Discharge Disposition: Home or Self Care 10/12/2023 Clinical Communication Department of Neurology in [address] [phone] Tyson Carreon M.D. Order Request (F/u clinical visit ) from Last 3 Months Social History Tobacco Use Types Packs/Day Years Used Date Smoking Tobacco: Never Smokeless Tobacco: Never Tobacco Cessation:Counseling Given: Not Answered Alcohol Use Standard Drinks/Week Comments Yes 5 (1 standard drink = 0.6 oz pur e alcohol) [facility] Utilities Answer Date Recorded In the past [...] your living situation today? I have a [facility] place to live 10/22/2023 Sex and [...] (Annual PHQ-2) 04/04/2023 Influenza Vaccine (#1) 2024 , 01/22/2020, 01/11/2019, Additional history exists Thyroid Stimulating [...] PM CDT Other Motor Neuron Disease (HCC) [place] ORGANIC ACID 1 QUANT 2 Routine 10/17/2023 2:43 PM CDT [place] T4 FREE Routine 10/17/2023 2:43 PM CDT [...] ? Final Report Study Number: 1 EMG Baker Second: Kylie Alcocer 127 or [phone] Referred by: TYSON CARREON (127 or [phone]) Referred for: Query bulbar onset ALS Referral [...] and cervical myotomes. Alberto Alcocer (127 or [phone])/ACV NERVE CONDUCTIONS ??Record Rep ?? Normal ??Normal [...] Electromyography Final Report Study Number: 1 EMG Baker Second: Kylie Alcocer 127 or [phone] Referred by: TYSON CARREON (127 or [phone]) Referred for: Query bulbar onset ALS Referral [...] and cervical myotomes. Alberto Alcocer (127 or [phone])/ACV NERVE CONDUCTIONS Record Rep Normal Normal Distal [...] ORDERABLES Performing Organization Address City/[facility] Co de Phone Number EMG * Lyme [...] - B LOOD ORDERABLES Performing Organization Address [facility] de Phone Number [facility] [address] [place] [address] ECLR [facility] [place] [address] * (ABNORMAL) Neurofilament Light Chain (NfL) (10/17/2023 2:49 PM CDT) Neurofilament Light Chain, P 70.7(H) <=25.4 pg/mL 10/19/2023 3:29 PM CDT [facility] Comment: ----ADDITIONAL INFORMATION---- The testing method is a digital immunoassay for the quantitative determination of NfL in plasma manufactured by [employer] and performed on the [employer] analyzer. Values obtained with different methods may be different and cannot be used interchangeably. This test was developed and its performance characteristics determined by [facility] in a manner consistent with CLIA requirements. This test has not been cleared or approved by the U.S. Food and Drug Administration. Blood (Blood, Venous) 10/17/2023 2:49 PM CDT 10/18/2023 8:38 AM CDT Tyson Carreon M.D. LAB BLOOD NON ADD-ON [facility] [address] [place] [address] [facility] [address] [place] [address] [place] [address] * Myelopathy, Autoimmune/Paraneoplastic Evaluation (10/17/2023 2:46 PM [...] its performance characteristics determined by [facility] in a manner consistent with CLIA requirements. This test has not been cleared or approved by the U.S. Food and Drug Administration. AGNA-1, S Negative Negative 10/24/2023 5:13 PM CDT DTL Comment: ----ADDITIONAL INFORMATION---- This test was developed and its performance characteristics determined by [facility] in a manner consistent with CLIA requirements. This test has not been cleared or approved by the U.S. Food and Drug Administration. NAEEM-1, S Negative Negative 10/24/2023 5:13 PM CDT DTL Comment: ----ADDITIONAL INFORMATION---- This test was developed and its performance characteristics determined by [facility] in a manner consistent with CLIA requirements. This test has not been cleared or approved by the U.S. Food and Drug Administration. NAEEM-2, S Negative Negative 10/24/2023 5:13 PM CDT DTL Comment: ----ADDITIONAL INFORMATION---- This test was developed and its performance characteristics determined by [facility] in a manner consistent with CLIA requirements. This test has not been cleared or approved by the U.S. Food and Drug Administration. NAEEM-3, S Negative Negative 10/24/2023 5:13 PM CDT DTL Comment: ----ADDITIONAL INFORMATION---- This test was developed and its performance characteristics determined by [facility] in a manner consistent with CLIA requirements. This test has not been cleared or approved by the U.S. Food and Drug Administration. AP3B2 IFA, S Negative Negative 10/24/2023 5:13 PM CDT DTL Comment: ----ADDITIONAL INFORMATION---- This test was developed and its performance characteristics determined by [facility] in a manner consistent with CLIA requirements. This test has not been cleared or approved by the U.S. Food and Drug Administration. CRMP-5-IgG Western Blot, S Negative Negative 10/24/2023 5:13 PM CDT DTL Comment: ----ADDITIONAL INFORMATION---- This test was developed and its performance characteristics determined by [facility] in a manner consistent with CLIA requirements. This test has not been cleared or approved by the U.S. Food and Drug Administration. DPPX Ab CBA, S Negative Negative 10/24/2023 5:13 PM CDT DTL Comment: ----ADDITIONAL INFORMATION---- This test was developed and its performance characteristics determined by [facility] in a manner consistent with CLIA requirements. This test has not been cleared or approved by the U.S. Food and Drug Administration. JOSE-B-R Ab CBA, S Negative Negative 2023 5:13 PM CDT DTL Comment: ----ADDITIONAL INFORMATION---- This test was developed and its performance characteristics determined by [facility] in a manner consistent with CLIA requirements. This test has not been cleared or approved by the U.S. Food and Drug Administration. GAD65 Ab Assay, S 0.00 <=0.02 nmol/L 10/24/2023 5:13 PM CDT DTL Comment: ----ADDITIONAL INFORMATION---- This test was developed and its performance characteristics determined by [facility] in a manner consistent with CLIA requirements. This test has not been cleared or approved by the U.S. Food and Drug Administration. GFAP IFA, S Negative Negative 10/24/2023 5:13 PM CDT DTL Comment: ----ADDITIONAL INFORMATION---- This test was developed and its performance characteristics determined by [facility] in a manner consistent with CLIA requirements. This test has not been cleared or approved by the U.S. Food and Drug Administration. mGluR1 Ab IFA, S Negative Negative 10/24/19 5:13 PM CDT DTL Comment: ----ADDITIONAL INFORMATION---- This test was developed and its performance characteristics determined by [facility] in a manner consistent with CLIA requirements. This test has not been cleared or approved by the U.S. Food and Drug Administration. MOG FACS, S Negative Negative 10/24/2023 5:13 PM CDT DTL Comment: ----ADDITIONAL INFORMATION---- This test was developed and its performance characteristics determined by [facility] in a manner consistent with CLIA requirements. This test has not been cleared or approved by the U.S. Food and Drug Administration. NIF IFA, S Negative Negative 10/24/2023 5:13 PM CDT DTL Comment: ----ADDITIONAL INFORMATION---- This test was developed and its performance characteristics determined by [facility] in a manner consistent with CLIA requirements. This test has not been cleared or approved by the U.S. Food and Drug Administration. NMO/AQP4 FACS, S Negative Negative 10/24/19 5:13 PM CDT DTL Comment: ----ADDITIONAL INFORMATION---- This test was developed and its performance characteristics determined by [facility] in a manner consistent with CLIA requirements. This test has not been cleared or approved by the U.S. Food and Drug Administration. Neurochondrin IFA, S Negative Negative 10/24/2023 5:13 PM CDT DTL Comment: ----ADDITIONAL INFORMATION---- This test was developed and its performance characteristics determined by [facility] in a manner consistent with CLIA requirements. This test has not been cleared or approved by the U.S. Food and Drug Administration. TAVERN CAR ATTENDANT-1, S Negative Negative 10/24/2023 5:13 PM CDT DTL Comment: ----ADDITIONAL INFORMATION---- This test was developed and its performance characteristics determined by [facility] in a manner consistent with CLIA requirements. This test has not been cleared or approved by the U.S. Food and Drug Administration. TAVERN CAR ATTENDANT-2, S Negative Negative 10/24/2023 5:13 PM CDT DTL Comment: ----ADDITIONAL INFORMATION---- This test was developed and its performance characteristics determined by [facility] in a manner consistent with CLIA requirements. This test has not been cleared or approved by the U.S. Food and Drug Administration. Septin-7 IFA, S Negative Negative 5:13 PM CDT DTL Comment: ----ADDITIONAL INFORMATION---- This test was developed and its performance characteristics determined by [facility] in a manner consistent with CLIA requirements. This test has not been cleared or approved by the U.S. Food and Drug Administration. TRIM46 Ab IFA, S Negative Negative 10/24/19 24 5:13 PM CDT DTL Comment: ----ADDITIONAL INFORMATION---- This test was developed and its performance characteristics determined by [facility] in a manner consistent with CLIA requirements. This test has not been cleared or approved by the U.S. Food and Drug Administration. Blood (Blood, Venous) 10/17/2023 2:46 PM CDT 10/18/2023 10:15 AM CDT Tyson Carreon M.D. LAB BLOOD ADD-ON [facility] [address] [place] [address], [facility] DT [address] [place] [address] * Ganglioside Antibody Panel (10/17/2023 2:46 PM CDT) IgG Monos. GM1 Negative Negative 10/25/2023 2:11 PM CDT DTL Comment: ----ADDITIONAL INFORMATION---- This test was developed and its performance characteristics determined by [facility] in a manner consistent with CLIA requirements. This test has not been cleared or approved by the U.S. Food and Drug Administration. IgM Monos. GM1 Negative Negative 10/25/2023 2:11 PM CDT DTL Comment: ----ADDITIONAL INFORMATION---- This test was developed and its performance characteristics determined by [facility] in a manner consistent with CLIA requirements. This test has not been cleared or approved by the U.S. Food and Drug Administration. IgG Asialo. GM1 Negative Negative 4 2:11 PM CDT DTL Comment: ----ADDITIONAL INFORMATION---- This test was developed and its performance characteristics determined by [facility] in a manner consistent with CLIA requirements. This test has not been cleared or approved by the U.S. Food and Drug Administration. IgM Asialo. GM1 Negative Negative 4 2:11 PM CDT DTL Comment: ----ADDITIONAL INFORMATION---- This test was developed and its performance characteristics determined by [facility] in a manner consistent with CLIA requirements. This test has not been cleared or approved by the U.S. Food and Drug Administration. IgG Disialo. GD1b Negative Negative 024 2:11 PM CDT DTL Comment: ----ADDITIONAL INFORMATION---- This test was developed and its performance characteristics determined by [facility] in a manner consistent with CLIA requirements. This test has not been cleared or approved by the U.S. Food and Drug Administration. IgM Disialo. GD1b Negative Negative 024 2:11 PM CDT DTL Comment: ----ADDITIONAL INFORMATION---- This test was developed and its performance characteristics determined by [facility] in a manner consistent with CLIA requirements. This test has not been cleared or approved by the U.S. Food and Drug Administration. Blood (Blood, Venous) 10/17/2023 2:46 PM CDT 10/18/2023 10:15 AM CDT Tyson Carreon M.D. LAB BLOOD NON ADD-ON [facility] [address] [place] [address], [facility] DTL [address] [place] [address] * Quantitative M-protein Study (10/17/2023 2:43 PM [...] its performance characteristics determined by [facility] in a manner consistent with CLIA requirements. This test has not been cleared or approved by the U.S. Food and Drug Administration. Blood (Blood, Venous) 10/17/2023 2:43 PM CDT 10/18/2023 6:28 AM CDT Narrative [facility] - 10/19/2023 8:50 AM CDT Specimen Information: Specimen ID: [id number] Specimen Type: Blood Specimen Collection Start Date: 10/17/2023 11:00 PM Specimen Received Date: 10/18/2023 ??6:28 AM Specimen ID: [id number] Specimen Type: Blood Specimen Collection Start Date: 10/17/2023 ??2:43 PM Specimen Received Date: 10/18/2023 ??7:09 AM Tyson Carreon M.D. LAB BLOOD ADD-ON [facility] [address] [place] [address] [facility] [address] [place] [address] [facility] [address] [place] [address] [place] [address] * T4 (Thyroxine), Free, Serum (10/17/2023 2:43 PM CDT) T4 (Thyroxine), Free, S 0.9 0.9 - 1.7 ng/dL 10/17/2023 3:57 PM CDT R[facility] Blood 10/17/2023 2:43 PM CDT 10/17/2023 2:49 PM CDT Tyson Carreon M.D. LAB BLOOD ADD-ON [facility] [address] [place] [address], [facility] RDWG [facility] in [address] [phone] * Methylmalonic Acid (MMA), Quantitative, Serum (10/17/2023 2:43 PM CDT) Pathologist [facility] Methylmalonic Acid, QN, S 0.22 <=0.40 nmol/mL 10/20/2023 8:15 AM CDT DTL Comment: No cellular B-12 deficiency. ----ADDITIONAL INFORMATION---- This test was developed and its performance characteristics determined by [facility] in a manner consistent with CLIA requirements. This test has not been cleared or approved by the U.S. Food and Drug Administration. Blood 10/17/2023 2:43 PM CDT 10/18/2023 1:29 PM CDT Tyson Carreon M.D. LAB BLOOD NON ADD-ON [facility] [address] [place] [address], [place] DTL [address] [place] [address] * Antinuclear Ab [place], S (10/17/2023 2:43 PM CDT) Pathologist [facility] Antinuclear Ab Screen by IFA, S Negative Negative 10/19/2023 8:45 AM CDT ECLR Comment:No titer performed, COURT screen is negative. Blood (Blood, Venous) 10/17/2023 2:43 PM CDT 10/17/2023 9:02 PM CDT Tyson Carreon M.D. LAB BLOOD NON ADD-ON Performing Organization Address City/[facility]/ZIP Co de Phone Number [facility] [address] [place] [address], [facility] ECLR [address] [place] [phone] * (ABNORMAL) Thyroid Function [place] (10/17/2023 2:43 PM CDT) TSH, Sensitive 10.3(H) 0.3 - 4.2 mIU/L 10/17/2023 3:35 PM CDT [facility] Blood (Blood, Venous) 10/17/2023 2:43 PM CDT 10/17/2023 2:49 PM CDT Tyson Carreon M.D. LAB BLOOD ADD-ON Performing Organization Address [facility] Co de Phone Number [facility] [address] [place] [address], [facility] RDWG [facility] [place] [address] [place] [phone] * Pernicious Anemia [place] (10/17/2023 2:43 PM CDT) Vitamin B12 Assay, S 248 180 - 914 ng/L 10/18/2023 11:55 AM CDT [facility] Comment:B-12 <400; MMA test was performed. Blood (Blood, Venous) 10/17/2023 2:43 PM CDT 10/18/2023 8:35 AM CDT Narrative [facility] - 10/18/2023 11:55 AM CDT Specimen Information: Specimen ID: [id number] Specimen Type: Blood Specimen Collection Start Date: 10/17/2023 ??2:43 PM Specimen Received Date: 10/18/2023 ??8:35 AM Specimen ID: [id number] Specimen Type: Blood Specimen Collection Start Date: 10/17/2023 ??2:43 PM Specimen Received Date: 10/18/2023 ??8:52 AM Tyson Carreon M.D. LAB BLOOD NON ADD-ON [facility] [address] [place] [address] [facility] [address] [place] [address] * Hexosaminidase A and Total Hexosaminidase, Leukocytes (10/17/2023 2:43 PM CDT) [facility] Hexosaminidase Total, WBC 23.9 16.4 - 36.2 [...] test MUGS). Please contact the [employer] lead sales consultant or genetic counselor sectional belt mold assembler ( ) if you have any questions. 10/21/2023 2:17 PM CDT DTL Comment: ----ADDITIONAL INFORMATION---- Heat Inactivation, Fluorometric This test was developed and its performance characteristics determined by [facility] in a manner consistent with CLIA requirements. This test has not been cleared or approved by the U.S. Food and Drug Administration. Blood (Blood, Peripheral Draw) 10/17/2023 2:43 PM CDT 10/18/2023 7:40 AM CDT Tyson Carreon M.D. LAB GENETIC TESTING [facility] [address] [place] [address], [facility] DTL [address] [place] [address] * Cryopreservation for Molecular Genetic Studies (10/17/2023 [...] is not a DNA banking service. If half-way, guaranteed specimen storage is required, DNA banking [...] TESTING Performing Organization Address City/[facility]/ZIP Co de Phone Number [facility] [address] [place] [address], [facility] DTL [address] [facility] [address] [place] [address] * (ABNORMAL) Thyroperoxidase (TPO) Antibodies (10/17/2023 2:43 PM CDT) Thyroperoxidase Ab, S 125.9(H) <34.0 IU/mL 10/18/2023 3:45 AM CDT ECLR Blood 10/17/2023 2:43 PM CDT 10/17/2023 9:04 PM CDT Tyson Carreon M.D. LAB BLOOD ADD-ON Performing Organization Address [facility] Co de Phone Number [facility] [address] [place] [address], [facility] ECLR [facility] [place] [address] * Copper (10/17/2023 2:43 PM CDT) Copper, S 115 77 - 206 mcg/dL 10/18/2023 10:42 AM CDT [facility] Comment: ----ADDITIONAL INFORMATION---- This test was developed and its performance characteristics determined by [facility] in a manner consistent with CLIA requirements. This test has not been cleared or approved by the U.S. Food and Drug Administration. Blood (Blood, Venous) 10/17/2023 2:43 PM CDT 10/17/2023 9:48 PM CDT Tyson Carreon M.D. LAB BLOOD NON ADD-ON Performing Organization Address City/[facility]/ZIP Co de Phone Number [facility] [address] [place] [address] [facility] [address] [place] [address] [place] [address] * Phosphorus Inorganic (10/17/2023 2:43 PM CDT) Phosphorus (Inorganic), P 3.0 2.5 - 4.5 mg/dL 10/17/2023 3:17 PM CDT R[facility] Blood (Blood, Venous) 10/17/2023 2:43 PM CDT 10/17/2023 2:49 PM CDT Tyson Carreon M.D. LAB BLOOD ADD-ON Performing Organization Address [facility] Co de Phone Number [facility] [address] [place] [address], [facility] RDWG [facility] [place] [address] [place] [phone] * (ABNORMAL) Parathyroid Hormone (PTH) (10/17/2023 2:43 PM CDT) Parathyroid Hormone (PTH), S 74(H) 15 - 65 pg/mL 10/17/2023 3:27 PM CDT R[facility] Comment: Biotin has been identified by the undercollar maker as a potential interfering substance. Higher concentrations of biotin may be found in multivitamins, hair/nail supplements, and workout supplements. If the result does not match clinical observations, repeat testing after patient refrains from the use of supplements for at least 12 hours. Blood (Blood, Venous) 10/17/2023 2:43 PM CDT 10/17/2023 2:49 PM CDT Tyson Carreon M.D. LAB BLOOD ADD-ON Performing Organization Address [facility] Co de Phone Number [facility] [address] [place] [address], [facility] RDWG [facility] in [place] [address] [place] [address], [place] [phone] * Creatinine with Estimated GFR (10/17/2023 2:43 PM CDT) Creatinine 0.78 0.59 - 1.04 mg/dL 10/17/2023 3:17 PM CDT RDW[facility] Estimated GFR (eGFR) 87 >=60 mL/min/BSA 10/17/2023 3:17 PM CDT [facility] Comment: Estimated GFR calculated using the 2020 CKD_EPI creatinine equation. Blood (Blood, Venous) 10/17/2023 2:43 PM CDT 10/17/2023 2:49 PM CDT Tyson Carreon M.D. LAB BLOOD ADD-ON [facility] [place] [address] [place] [address], [facility] RDWG [facility] [place] [address] [place] [address] * CK (Creatine Kinase) (10/17/2023 2:43 PM CDT) Creatine Kinase, P 163 26 - 192 U/L 10/17/2023 3:17 PM CDT [facility] Blood (Blood, Venous) 10/17/2023 2:43 PM CDT 10/17/2023 2:49 PM CDT Tyson Carreon M.D. LAB BLOOD ADD-ON Performing Organization Address City/[facility]/ZIP Co de Phone Number [facility] [place] [address], [facility] RDW[facility] [place] [address] * Calcium, Total (10/17/2023 2:43 PM CDT) Calcium, Total, P 9.3 8.6 - 10.0 mg/dL 10/17/2023 3:17 PM CDT [facility] Blood (Blood, Venous) 10/17/2023 2:43 PM CDT 10/17/2023 2:49 PM CDT Tyson Carreon M.D. LAB BLOOD ADD-ON [facility] [place] [address], [facility] R[facility] [place] [address] [place] [address] * Vitamin E Level (10/17/2023 2:39 PM CDT) A-Tocopherol, Vitamin E 13.6 5.5 - 17.0 mg/L 10/19/2023 8:25 AM CDT [facility] Comment: ----ADDITIONAL INFORMATION---- This test was developed and its performance characteristics determined by [facility] in a manner consistent with CLIA requirements. This test has not been cleared or approved by the U.S. Food and Drug Administration. Blood (Blood, Venous) 10/17/2023 2:39 PM CDT 10/18/2023 11:23 AM CDT Tyson Carreon M.D. LAB BLOOD NON ADD-ON [facility] [place] [address] [place] [address] [facility] [address] [place] [address] [place] [address] from Last 3 Months
--- OUTSIDE RECORDS SUMMARY | 2023-11-17 08:58 | XMS_ITS | Encounter Summary ---
Author Organization [place] Address [address] [place] [address]. [place] [address] Care Team Providers Care Community Relations Specialist Name Role Phone Nicanor Thomas MD Primary Care Provider Natacha Meade [facility] Unavailable [phone] Reason for Referral * Therapeutic Services (Routine: Next available opening) - Pending Review Specialty Diagnoses / Procedures Referred By Paolo llanos Referred To Contact Diagnoses ALS (amyotrophic lateral sclerosis) (H) Yemi Bacon MD [address] [place] [address] Referral ID Status Reason Start Date Expiration Date V isits Requested Visits Authorized [id number] Pending Review 11/08/2023 11/07/2024 1 1 Question Answer Course of Action: Evaluation and Treatment Speech Treatment Diagnosis: Dysphagia Specialty Services: Per Associated Diagnosis Scheduling Instructions: als clinic Comments als clinic * Occupational Therapy (Routine: Next available opening) - Pending Review Specialty Diagnoses / Procedures Referred By Paolo llanos Referred To Contact Diagnoses ALS (amyotrophic lateral sclerosis) (H) Yemi Bacon MD [address] [place] [address] Referral ID Status Reason Start Date Expiration Date V isits Requested Visits Authorized [id number] Pending Review 11/08/2023 11/07/2024 1 1 Question Answer Course of Action: Evaluation and Treatment Specialty Services: Per Associated Diagnosis Scheduling Instructions: als clinic Comments Please be aware that coverage of these services is subject to the terms and limitations of your health insurance plan. Call member services at your health plan with any benefit or coverage questions. als clinic * Rehab Therapy Physical Therapy (Routine: Next available opening) - Pending Review Specialty Diagnoses / Procedures Referred By Paolo llanos Referred To Contact Diagnoses ALS (amyotrophic lateral sclerosis) (H) Yemi Bacon MD [address] [place] [address] [id number] [place] [address] Referral ID Status Reason Start Date Expiration Date V isits Requested Visits Authorized [id number] Pending Review 11/08/2023 11/07/2024 1 1 Question Answer Course of Action: Evaluation and Treatment Specialty Services: Per Associated Diagnosis Scheduling Instructions: als clinic Comments Please be aware that coverage of these services is subject to the terms and limitations of your health insurance plan. Call member services at your health plan with any benefit or coverage questions. als clinic Encounter Details Date Type Department Care Team (Late Contact Info) Description 11/08/2023 [facility] Neurology [facility] [address]rd [place] [address] Irma Batista LPN ALS (amyotrophic lateral sclerosis) [...] Description 01/12/2024 9:00 AM CDT Office Visit [facility] [address]rd [place] [phone] Yemi Bacon MD [address] [place] [address] [id number] 02/14/2024 9:00 AM CREW TRUCK DRIVER Virtual Visit [facility] [address] [address] Yemi Bacon MD [address] [place] [address] Natacha Meade [address] [phone] Scheduled Referrals Name Type Priority Associated Diagnoses Order Schedule Physical Therapy Chro Referral Referral Routine: Next available opening ALS (amyotrophic lateral sclerosis) (H) Expected: 11/08/2023 (Approximate), Expires: 11/07/2024 Occupational Therapy Chro Referral Referral Routine: Next available opening ALS (amyotrophic lateral sclerosis) (H) Expected: 11/08/2023 (Approximate), Expires: 11/07/2024 Speech Therapy Chro Referral Referral Routine: Next available opening ALS (amyotrophic lateral sclerosis) (H) Expected: 11/08/2023 (Approximate), Expires: 11/07/2024 documented as of this encounter Visit Diagnoses Diagnosis ALS (amyotrophic lateral sclerosis) (H)- Primary Amyotrophic lateral sclerosis documented in this encounter Care Teams Community Relations Specialist Relationship Specialty Start Date End Date Nicanor Thomas MD [facility] [address] [place] [address] PCP - General 07/13/05 Natacha Meade [facility] [address] [place] [address] Pharmacist Pharmacist 11/09/23 documented as of this encounter
--- OUTSIDE RECORDS SUMMARY | 2023-11-17 08:58 | XMS_ITS | Encounter Summary ---
Author Organization [facility] Address [address] [place] [address] Care Team Providers Care Machines Technician Name Role Phone Unavailable Primary Care Provider Unavailabl e Encounter Details Date Type Department Care Team (Late st Contact Info) Description 10/27/2023 Orders Only Pharmacy Prior Auth [phone] Margy Teran Social History Tobacco Use Types Packs/Day Years Used Date Smoking Tobacco: Never Smokeless Tobacco: Never Alcohol Use Standard Drinks/Week Comments Yes 5 (1 standard drink = 0.6 oz pur e alcohol) [facility] Utilities Answer Date Recorded In the past 12 months has e electric, gas, oil, or water [employer] threatened to shut off services in your [...] your living situation today? I have a [facility] place to live 10/22/2023 Sex and [...]
--- OUTSIDE RECORDS SUMMARY | 2023-11-17 08:58 | XMS_ITS | Encounter Summary ---
Author Organization [place] Address [address] [place] [address]. [place] [address] Care Team Providers Care Geodetic Technician Name Role Phone Nicanor Thomas MD Primary Care Provider Natacha Meade [facility] Unavailable [phone] Encounter Details Date Type Department Care Team (Late st Contact Info) Description 11/09/2023 MyC Medical Advice [facility] Multiple [facility]clerosis [facility] [address] [address] [address] Social History Tobacco Use Types Packs/Day [...] Description 01/12/2024 9:00 AM CDT Office Visit [facility] Neurology Clinic [address] 3rd [place] [address] Yemi Bacon MD [address] [address] 02/14/2024 9:00 AM COUNSELOR MANAGER Virtual Visit [facility] Multiple Sclerosis [address] [phone] Yemi Bacon MD [address] [place] [address] Natacha Meade [address] [address] documented as of this encounter Visit Diagnoses Not on filedocumented in this encounter Care Teams Geodetic Technician Relationship Specialty Start Date End Date Nicanor Thomas MD [facility] [address] [address] PCP - General 07/13/05 Natacha Meade [facility] [address] [place] [address] [phone] Pharmacist Pharmacist 11/09/23 documented as of this encounter
--- OUTSIDE RECORDS SUMMARY | 2023-11-17 08:58 | XMS_ITS | Encounter Summary ---
Author Organization [facility] Address [address] [place] [address] Care Team Providers Care Carpenters Name Role Phone Unavailable Primary Care Provider Unavailabl e Reason for Visit * Reason Onset Date Comments Med Question 11/07/2023 Encounter Details Date Type Department Care Team (Latest Contact Info) Description 11/07/2023 Clinical Communication Department of Cardiovascular Diseases in [address] [phone] Lizandro López M.D. [address] [place] [phone] Med Question Social History Tobacco Use Types Packs/Day Years Used Date Smoking Tobacco: Never Smokeless Tobacco: Never Alcohol Use Standard Drinks/Week Comments Yes 5 (1 standard drink = 0.6 oz pur e alcohol) [facility] Utilities Answer Date Recorded In the past 12 months has [employer], gas, oil, or water [employer] threatened to shut off services in your [...] your living situation today? I have a [facility] place to live 10/22/2023 Sex [...]
--- OUTSIDE RECORDS SUMMARY | 2023-11-17 08:58 | XMS_ITS | Encounter Summary ---
Author Organization [place] Address [address] [place] [address]. [place] [address] Care Team Providers Care Sleep Medicine Physician Name Role Phone Nicanor Thomas MD Primary Care Provider Reason for Visit * Reason Onset Date Comments Referral 10/28/2023 ALS Multidiscipl inary Clinic Encounter Details Date Type Department Care Team (Late st Contact Info) Description 10/28/2023 [facility] Neurology Clinic [address] 3rd [place] [address] None Referral (ALS Multidisciplinary Clinic/) [...] Hailey Multani - 10/28/2023 10:44 AM CDT [facility] Call Center Phone Message May a detailed message be left on voicemail: yes Reason for Call: Appointment Intake Referring Provider Name: Lizandro López affiliated with [facility]. Diagnosis and/or Symptoms: ALS Multidisciplinary Clinic Gymnastic Coach sending TE per protocols, please review and assist with scheduling Action Taken: Message routed to: [facility] neurology Travel Screening: Not Applicable Date of Service: documented in this encounter Plan of Treatment Upcoming Encounters Date Type Department Care Team (Late st Contact Info) Description 01/12/2024 9:00 AM CDT Office Visit [facility] Neurology Clinic [address] 3rd [place] [phone] Yemi Bacon MD [address] [place] [phone] 02/14/2024 9:00 AM CARBON ELECTRODES SUPERVISOR Virtual Visit [facility] Multiple Sclerosis [address] [phone] Yemi Bacon MD [address] [place] [phone] [address] [phone] documented as of this encounter Visit Diagnoses Not on filedocumented in this encounter Care Teams Sleep Medicine Physician Relationship Specialty Start Date End Date Nicanor Thomas MD [facility] [address] [address] PCP - General 07/13/05 documented as of this encounter
--- OUTSIDE RECORDS SUMMARY | 2023-11-17 08:58 | XMS_ITS | Encounter Summary ---
Author Organization [facility] Address [address] [place] [address] Care Team Providers Care Route Driver Name Role Phone Unavailable Primary Care Provider Unavailabl e Reason for Referral * Medication Prior Authorization - Closed Specialty Diagnoses / Procedures Referred By Paolo llanos Referred To Contact Lizandro López M.D. [address] [place] [address] Referral ID Status Reason Start Date Expiration Date Visits Re quested Visits Authorized [id number] Closed 1 1 Reason for Visit * Reason Onset Date Comments Rx Prior Authorization 10/26/2023 Radicava Encounter Details Date Type Department Care Team (Latest Contact Info) Description 10/26/2023 Clinical Communication Department of Neurology in [place], [place] [address] [place] [phone] Lizandro López M.D. [address] [place] [phone] Rx Prior Authorization (Radicava ) Social History Tobacco Use Types Packs/Day Years Used Date Smoking Tobacco: Never Smokeless Tobacco: Never Alcohol Use Standard Drinks/Week Comments Yes 5 (1 standard drink = 0.6 oz pur e alcohol) [facility] Utilities Answer Date Recorded In the past [...] your living situation today? I have a [facility] place to live 10/22/2023 Sex [...]
--- OUTSIDE RECORDS SUMMARY | 2023-11-17 08:58 | XMS_ITS | Encounter Summary ---
Author Organization [facility] Address [address] [place] [address] Care Team Providers Care Coding Educator Name Role Phone Unavailable Primary Care Provider Unavailabl e Reason for Visit * Reason Onset Date Comments Communication 11/08/2023 Encounter Details Date Type Department Care Team (Late st Contact Info) Description 11/08/2023 Clinical Communication Department of Neurology in [address] [phone] Lizandro López M.D. [address] [place] [phone] Communication Social History Tobacco Use Types Packs/Day Years Used Date Smoking Tobacco: Never Smokeless Tobacco: Never Alcohol Use Standard Drinks/Week Comments Yes 5 (1 standard drink = 0.6 oz pur e alcohol) [facility] Utilities Answer Date Recorded In the past 12 months has [facility] [employer], gas, oil, or water [employer] threatened to shut off services in your [...] your living situation today? I have a [facility] place to live 10/22/2023 Sex and [...]
--- OUTSIDE RECORDS SUMMARY | 2023-11-17 08:58 | XMS_ITS | Encounter Summary ---
Author Organization [place] Address [address] [place] [address]. [place] [address] Care Team Providers Care Grey Percher Name Role Phone Nicanor Thomas MD Primary Care Provider Halina Natacha [facility] Unavailable [phone] Reason for Referral * Consultation (Routine: Next available opening) - Pending Review Specialty Diagnoses / Procedures Referred By Paolo llanos Referred To Contact Genetics, Clinical Diagnoses ALS (amyotrophic lateral sclerosis) (H) Yemi Bacon MD [address] [facility] [id number] [place] [address] Referral ID Status Reason Start Date Expiration Date V isits Requested Visits Authorized [id number] Pending Review 11/04/2023 11/03/2024 1 1 Question Answer Reason for Referral: Neuromuscular Scheduling Instructions: [facility] will call you to coordinate your care as prescribed by your provider. If you don't hear from a wine sales representative within 2 business days, please call [phone]. Additional Information: ALS panel - Lisset Quiros [...] plan with any benefit or coverage questions. [facility] will call you to coordinate your care as prescribed by your provider. If you don't hear from a wine sales representative within 2 business days, please call [phone]. * Med Therapy Management (Routine: Next available opening) - Closed Specialty Diagnoses / Procedures Referred By Paolo llanos Referred To Contact Pharmacist Diagnoses ALS (amyotrophic lateral sclerosis) (H) Yemi Bacon MD [address] [facility] [id number] [place] [address] Referral ID Status Reason Start Date Expiration Date Visits Re quested Visits Authorized [id number] Closed 11/04/2023 11/03/2024 1 1 Question Answer Type of MTM: Specialty Specialty: Neurology Course of Action: Other Reason for Referral: radicava and Ermaedextimo - Natacha Meade please Comments [facility] Medication Therapy Management department will contact you [...] prescription and non-prescription medications (such as vitamins, vuur-mrf-ohozaun medications, and herbals) or a detailed medication [...] (H) Lizandro López MD [address] [place] [address] Referral ID Status Reason Start Date Expiration Date V isits Requested Visits Authorized [id number] Pending Review 10/27/2023 10/26/2024 1 1 Encounter Details Date Type Department Care Team ([facility] st Contact Info) Description 11/02/2023 1:30 PM CDT Office Visit [facility] Neurology Clinic [address] 3rd [place] [phone] Yemi Bacon MD [address] [place] [address] [id number] [place] [address] ALS (amyotrophic lateral sclerosis) (H) (Primary Dx); [...] clinic. I agree with your seeing an bottle washer. One more blood test; [facility] Please call Keli @ [phone] for questions or concerns during regular business hours. For a more efficient way to communicate, use UUCUNt and address the message to your physician. Remember, MyChart is only read during business hours. Do not leave urgent messages on voicemail or MyChart. If situation is urgent, contact the Neurology Clinic @ [phone] and ask to speak to a Triage [...] observed dysphagia, initially for water, and a subsequent change in the quality of her speech. Symptoms were first observed in December 2022, though in her view her speech has stabilized after declining initially and her dysphagia has resolved. She feels her speech was hoarse until 3 months ago, then improved. She denies cognitive or behavioral symptoms. She denies significant muscle cramps, fasciculations, weakness, clumsiness, or impaired gait. She does endorse modest weight loss without loss of appetite. She does not smoke and drinks alcohol infrequently. She is not a . A three generation family history was reviewed today and is positive for Parkinson's disease but negative for other neurodegenerative or neuromuscular disorders. She has one full sister, one half-brother on her mother's side, and two half-brothers and two half-sisters on her father's side. Her father had PD and at age 85. One of her half-brothers andone of her half-sisters on her father's side have PD. Her past medical history is also notable for endometrial cancer, treated surgically 10 years ago, without radiation or chemotherapy, and without recurrence. Today's vital signs: BP 114/75 Pulse 83 [...] 47 FVC Lab Results Component Value Date 06.3011/02/2023 I personally reviewed her electrodiagnostic studies and [...] clinic. I agree with your seeing an bottle washer. One more blood test; you can have it [facility] at [facility]. [MuSK Ab; MG is not explained [...] Description 01/12/2024 9:00 AM CDT Office Visit [facility] Neurology Clinic [address] 3rd [place] [phone] Yemi Bacon MD [address] [place] [address] 02/14/2024 9:00 AM COIN BOX COLLECTOR Virtual Visit [facility] Multiple Sclerosis [address] [phone] Yemi Bacon MD [address] [place] [address] Natacha Meade, [address] [address] (work) Scheduled Referrals Name Type Priority Associated Diagnoses Orde r Schedule Med Therapy Management Referral Referral Routine: Next available opening ALS (amyotrophic lateral sclerosis) (H) Ordered: 11/04/2023 Adult Genetics & Metabolism Asphalt Distributor Tender Referral Referral Routine: Next available opening ALS (amyotrophic lateral sclerosis) (H) Expected: 11/04/2023 (Approximate), Expires: 11/03/2024 documented as of this encounter Results * Muscle-Specific Kinase Antibody Screen with Reflex to Titer (11/10/2023 3:59 PM CDT) Muscle-Specific Kinase Antibody Screen <1:10 <1:10 11/14/2023 10:59 PM CDT [employer] Comment: MuSK Antibody, IgG is not [...] developed and its performance characteristics determined by [facility]. It has not been cleared or approved by the U.S. Food and Drug Administration. This test was performed in a CLIA-certified laboratory and is intended for clinical purposes. Performed By: [facility] [address] [place] [id number] Self Pay Representative: Fidel Cornell MD, PhD CLIA Number: [id number] Blood BLOOD SPECIMEN / Unknown Venipuncture / Unknown 11/10/2023 3:59 PM CDT 11/10/2023 3:59 PM CDT Yemi Bacon MD LAB - BLOOD ORDERABL ES [facility] [[email or web address]] [employer] [address] [place] [phone], [facility] [phone] documented in this encounter Visit Diagnoses Diagnosis ALS (amyotrophic lateral sclerosis) (H)- Primary Amyotrophic lateral sclerosis Acquired amyotrophic lateral sclerosis (H) documented in this encounter Care Teams Grey Percher Relationship Specialty Start Date End Date Nicanor Thomas MD [facility] [address] [place] [address] [place] [address] PCP - General 07/13/05 Natacha Meade RPH [address] [place] [address] Pharmacist Pharmacist 11/09/23 documented as of this encounter
--- OUTSIDE RECORDS SUMMARY | 2023-11-17 08:58 | XMS_ITS | Encounter Summary ---
Author Organization [facility] Address [address] [place] [address] Care Team Providers Care Web Site Admin Name Role Phone Unavailable Primary Care Provider Unavailabl e Reason for Visit * Reason Onset Date Comments Letter to support Out of Network 11/15/2023 Encounter Details Date Type Department Care Team (Latest Contact Info) Description 11/15/2023 Clinical Communication Department of Neurology in [address] [phone] Lizandro López M.D. 200 [place] [phone] Letter to support Out of Network () Social History Tobacco Use Types Packs/Day Years Used Date Smoking Tobacco: Never Smokeless Tobacco: Never Alcohol Use Standard Drinks/Week Comments Yes 5 (1 standard drink = 0.6 oz pur e alcohol) [facility] Utilities Answer Date Recorded In the past 12 months has [employer], gas, oil, or water [employer] threatened to shut off services in your [...] your living situation today? I have a [facility] place to live 10/22/2023 Sex and Gender Information Value Date Recorded Sex Assigned at Female 10/22/2023 5:48 PM CDT Gender Identity Female 10/22/2023 5:48 PM CDT Sexual Orientation Straight 10/22/2023 5: 48 PM CDT documented as of this encounter Miscellaneous Notes * Telephone Encounter - Santos De La Vega - 11/15/2023 8:54 AM CDT Provider created a letter to support the out of network visits with clinical notes. Faxed to [facility]. Fax- [phone] documented in this encounter Plan of Treatment Not on file documented as of this encounter Visit Diagnoses Not on filedocumented in this encounter
--- OUTSIDE RECORDS SUMMARY | 2023-11-17 08:58 | XMS_ITS | Encounter Summary ---
Author Organization [place] Address [address] [place] [address]. [place] [address] Care Team Providers Care Thermal Cutting Machine Operator Name Role Phone Nicanor Thomas MD Primary Care Provider Reason for Referral * Consultation (Routine) - Pending Review Specialty Diagnoses / Procedures Referred By Paolo llanos Referred To Contact Neurology Diagnoses Acquired amyotrophic lateral sclerosis (H) Lizandro López MD [address] [place] [address] Referral ID Status Reason Start Date Expiration Date V isits Requested Visits Authorized [id number] Pending Review 10/27/2023 10/26/2024 1 1 Question Answer Reason for Referral: Other Scheduling Instructions: [facility] will call you to coordinate your care as prescribed by your provider. If you don't hear from a retention representative within 2 business days, please call . My Clinical Question Is: ALS Multidisciplinary Clinic Comments Referral Transcribed by external fax Provider: Lizandro López affiliated with [facility]. VA: No If yes was is the VA Authorization Number: Phone number: [phone] Fax number: [phone] Please be aware that coverage of these services is subject to the terms and limitations of your health insurance plan. Call member services at your health plan with any benefit or coverage questions. [facility] will call you to coordinate your care as prescribed by your provider. If you don't hear from a retention representative within 2 business days, please call . [...] Description 01/12/2024 9:00 AM CDT Office Visit [facility] Neurology Clinic [address]rd [place] [phone] Yemi Bacon MD [address] [place] [address] 02/14/2024 9:00 AM PLASTIC AND RECONSTRUCTIVE SURGEON Virtual Visit [facility] Multiple Sclerosis [address] [phone] Yemi Bacon MD [address] [place] [phone] [address] [address] Scheduled Referrals Name Type Priority Associated Diagnoses Orde r Schedule Adult Neurology Chaser Apprentice Referral Referral Routine Acquired amyotrophic lateral sclerosis (H) Expected: 10/27/2023 (Approximate), Expires: 10/26/2024 documented as of this encounter Visit Diagnoses Diagnosis Acquired amyotrophic lateral sclerosis (H)- Primary documented in this encounter Care Teams Thermal Cutting Machine Operator Relationship Specialty Start Date End Date Nicanor Thomas MD [facility] [address] [place] [address] PCP - General 07/13/05 documented as of this encounter
--- OUTSIDE RECORDS SUMMARY | 2023-11-17 08:58 | XMS_ITS | Encounter Summary ---
Author Organization [place] Address [address] [place] [address]. [place] [address] Care Team Providers Care Donor Center Technician Name Role Phone Nicanor Thomas MD Primary Care Provider Encounter Details Date Type Department Care Team (Late Contact Info) Description 11/02/2023 1:00 PM CDT Office Visit [facility] Pulmonary Function Testing [address] [phone] Muscle weakness (generalized) Social History [...] Department Care Team (Late Contact Info) Description 01/12/2024 9:00 AM CDT Office Visit [facility] Neurology Clinic [address] [phone] Yemi Bacon MD [address] [place] [address] [id number] [place] [address] 02/14/2024 9:00 AM SOLUTION LEAD Virtual Visit [facility] Multiple Sclerosis [address] [phone] Yemi Bacon MD [address] [place] [address] Natacha Meade, [address] [address] documented as of this encounter Procedures Procedure Name Priority Date/Time Associated Diagnosis Comments MT MIP/MEP Routine 11/02/2023 1:02 PM CDT Muscle weakness (generalized) MT RESPIRATORY FLOW VOLUME LOOP Routine 11/02/2023 1:02 PM CDT Muscle weakness (generalized) PFT GENERAL LAB TESTING Routine 11/02/2023 12:50 PM CDT Muscle weakness (generalized) documented in this encounter Results * Pulmonary Function Test (11/02/2023 12:50 PM CDT) FVC-Pred 3.14 L [facility] PFT FVC-Pre 3.29 L [facility] PFT FVC-%Pred-Pre 104 % [facility]FT FEV1-Pre 2.67 L [facility] PFT FEV1-%Pred-Pre 107 % [facility] PFT [id number] 80 % [facility] PFT [id number] 81 % [facility] PFT FEFMax-Pred 6.63 L/sec [facility] PFT FEFMax-Pre 5.47 L/sec [facility] PFT FEFMax-%Pred-Pr e 82 % [facility] PFT [id number] 2.27 L/sec [facility] PFT [id number] 2.74 L/sec [facility] PFT [id number]-P re 120 % [facility] PFT ExpTime-Pre 5.71 sec [facility] PFT FIFMax-Pre 2.04 L/sec [facility] PFT MEP-Pre 70 cmH2O [facility] PFT MIP-Pre -50 cmH2O [facility] PFT [id number] 81 % [facility] PFT [id number] 82 % [facility] PFT 11/02/2023 12:5 0 PM CDT Narrative [facility] PFT - 11/03/2023 6:37 PM CDT The FVC, FEV1, FEV1/FVC ratio and TLR30-27% are within normal limits. IMPRESSION: Normal Spirometry. MIP and MEP are reduced. ?This interpretation has been electronically signed: ??RIOS CHRISTIANSON 11/03/2023 ??06:09:20 PM? Yemi Bacon MD PFT ORDERABLES [facility] PFT documented in this encounter Visit Diagnoses Diagnosis Muscle weakness (generalized) documented in this encounter Care Teams Donor Center Technician Relationship Specialty Start Date End Date Nicanor Thomas MD [facility] [place] [address] PCP - General 07/13/05 documented as of this encounter
--- OUTSIDE RECORDS SUMMARY | 2023-11-17 08:58 | XMS_ITS | Encounter Summary ---
Author Organization [place] Address [address] [place] [address]. [place] [address] Care Team Providers Care Banbury Mixer Operator Name Role Phone Nicanor Thomas MD [...] Description 01/12/2024 9:00 AM CDT Office Visit [facility] Neu[facility] [address] [place] [phone] Yemi Bacon MD [address] [place] [address] 02/14/2024 9:00 AM WAREHOUSE FREIGHT HANDLER Virtual Visit [facility] Multiple Sclerosis Clinic [address] [phone] Yemi Bacon MD [address] [place] [address] Natacha Meade, [facility] [address] [place] [address] documented as of this encounter Visit Diagnoses Not on filedocumented in this encounter Care Teams Banbury Mixer Operator Relationship Specialty Start Date End Date Nicanor Thomas MD [facility] [address] [facility] [address] [place] [address] PCP - General 07/13/05 documented as of this encounter
--- OUTSIDE RECORDS SUMMARY | 2023-11-17 08:58 | XMS_ITS ---
Author Organization [facility] Address [address] [place] [address] Care Team Providers Care Cork Wirer Name Role Phone Unavailable Unavailable Unavailable Surgery Details Not on file Complications Check Surgery Details section. Procedure Estimated Blood Loss Check Surgery Details section. Procedure Findings Check Surgery Details section. Procedure Specimens Taken Check Surgery Details section.
--- OUTSIDE RECORDS SUMMARY | 2023-11-17 08:58 | XMS_ITS | Referral Summary ---
Author Organization [facility] Address [address] [place] [address] Care Team Providers Care Safety And Security Officer Name Role Phone Unavailable Primary Care Provider Unavailabl e Source Comments Patient records contain information from all sites at [facility]. For routine questions regarding patient records, call [phone] during business hours, M-F 8:00 AM - 5:00 PM Central Time. Record requests for emergency care only can be directed to [phone] at any time.[facility] Encounters Date Type Department Care Team Description 11/15/2023 Clinical Communication Department of Neurology in [address] [phone] Tyson Carreon M.D. Letter to support Out of Network ([facility]) 11/08/2023 Clinical Communication Department of Neurology in [address] [phone] Tyson Carreon M.D. Communication 11/07/2023 Clinical Communication Department of Cardiovascular Diseases in [address] [phone] Tyson Carreon M.D. Med Question 10/28/2023 Orders Only Pharmacy Prior Auth RO [phone] Chel Snyder 10/27/2023 Orders Only Pharmacy Prior Auth RO [phone] Margy Teran 10/26/2023 Clinical Communication Department of Neurology in [place], [place] [address] [place] [address] Tyson Carreon M.D. Rx Prior Authorization (Radicava ) 10/25/2023 3:30 PM CDT Office Visit Department of Neurology in [address] [phone] Tyson Carreon M.D. Sclerosis Lateral Amyotrophic (HCC) (Primary Dx) Discharge Disposition: Home or Self Care 10/19/2023 7:11 AM CDT - 10/19/2023 11:59 PM CDT Hospital Encounter Department of Neurology in [place], [place] [address] [place] [address] Tyson Carreon M.D. Other Motor Neuron Disease (HCC) Discharge Disposition: Home or Self Care 10/18/2023 Clinical Communication Department of Neurology in [address] [phone] Tyson Carreon M.D. Follow-up Orders (MRI in [place] ) 10/17/2023 2:11 PM CDT - 10/17/2023 11:59 PM CDT Hospital Encounter Department of Laboratory Medicine in [address] [phone] Tyson Carreon M.D. Other Motor Neuron Disease (HCC) Discharge Disposition: Home or Self Care 10/17/2023 1:00 PM CDT Office Visit Department of Neurology in [address] [phone] Tyson Carreon M.D. Sclerosis Lateral Amyotrophic (HCC) (Primary Dx); Other Motor Neuron Disease (HCC); Anterior Horn Cell Disease (HCC) Discharge Disposition: Home or Self Care 10/12/2023 Clinical Communication Department of Neurology in [address] [phone] Tyson Carreon M.D. Order Request (F/u clinical [...] a day. Indication: ALS 60 tablet 10/27/2023 Active riluzole (Rilutek) 50 mg tablet Take 1 tablet (50 mg total) by mouth 2 (two) times a day. 60 tablet 10/25/2023 10/27/2023 Discontinued edaravone (Radicava ORS Starter [...] drink = 0.6 oz pur e alcohol) [facility] Utilities Answer Date Recorded In the [...] your living situation today? I have a [facility] place to live 10/22/2023 Sex and Gender [...] PM CDT Other Motor Neuron Disease (HCC) SD ORGANIC ACID 1 QUANT 2 Routine 10/17/2023 2:43 PM CDT SD T4 FREE Routine 10/17/2023 2:43 PM CDT [...] ? Final Report Study Number: 1 EMG Bag Repairer: Kylie Alcocer 127 or [phone] Referred by: TYSON CARREON (127 or [phone]) Referred for: Query bulbar onset ALS Referral [...] and cervical myotomes. Alberto Alcocer (127 or [phone])/ACV NERVE CONDUCTIONS ??Record Rep ?? Normal ??Normal [...] Electromyography Final Report Study Number: 1 EMG Bag Repairer: Kylie Alcocer 127 or [phone] Referred by: TYSON CARREON (127 or [phone]) Referred for: Query bulbar onset ALS Referral [...] and cervical myotomes. Alberto Alcocer (127 or [phone])/ACV NERVE CONDUCTIONS Record Rep Normal Normal Distal [...] + + 25% ++ Comment: varying Orbicularis mraciano R NL 0 0 NL Comment: occ [...] - B LOOD ORDERABLES Performing Organization Address City/[facility]/ZIP Co de Phone Number [facility] [address] [place] [address], [facility] ECLR [facility] [place] [address] [place] [address] * (ABNORMAL) Neurofilament Light Chain (NfL) (10/17/2023 2:49 PM CDT) Pathologist [facility] [place] Neurofilament Light Chain, P 70.7(H) <=25.4 pg/mL 10/19/2023 3:29 PM CDT [facility] Comment: ----ADDITIONAL INFORMATION---- The testing method is a digital immunoassay for the quantitative determination of NfL in plasma manufactured by [employer] and performed on the ThinkSmart-X analyzer. Values obtained with different methods may be different and cannot be used interchangeably. This test was developed and its performance characteristics determined by [facility] in a manner consistent with CLIA requirements. This test has not been cleared or approved by the U.S. Food and Drug Administration. Blood (Blood, Venous) 10/17/2023 2:49 PM CDT 10/18/2023 8:38 AM CDT Tyson Carreon M.D. LAB BLOOD NON ADD-ON Performing Organization Address City/[facility] Co de Phone Number [facility] [address] [place] [address] [facility] [address] [place] [address] * Myelopathy, Autoimmune/Paraneoplastic Evaluation (10/17/2023 2:46 PM CDT) Pathologist [facility] [place] Autoimmune Myelopathy Interp, S see below 10/24/2023 [...] developed and its performance characteristics determined by [facility] in a manner consistent with CLIA requirements. This test has not been cleared or approved by the U.S. Food and Drug Administration. AGNA-1, S Negative Negative 10/24/2023 5:13 PM CDT DTL Comment: ----ADDITIONAL INFORMATION---- This test was developed and its performance characteristics determined by [facility] in a manner consistent with CLIA requirements. This test has not been cleared or approved by the U.S. Food and Drug Administration. NAEEM-1, S Negative Negative 10/24/2023 5:13 PM CDT [facility] Comment: ----ADDITIONAL INFORMATION---- This test was developed and its performance characteristics determined by [facility] in a manner consistent with CLIA requirements. This test has not been cleared or approved by the U.S. Food and Drug Administration. NAEEM-2, S Negative Negative 10/24/2023 5:13 PM CDT DTL Comment: ----ADDITIONAL INFORMATION---- This test was developed and its performance characteristics determined by [facility] in a manner consistent with CLIA requirements. This test has not been cleared or approved by the U.S. Food and Drug Administration. NAEEM-3, S Negative Negative 10/24/2023 5:13 PM CDT DTL Comment: ----ADDITIONAL INFORMATION---- This test was developed and its performance characteristics determined by [facility] in a manner consistent with CLIA requirements. This test has not been cleared or approved by the U.S. Food and Drug Administration. AP3B2 IFA, S Negative Negative 10/24/2023 5:13 PM CDT DTL Comment: ----ADDITIONAL INFORMATION---- This test was developed and its performance characteristics determined by [facility] in a manner consistent with CLIA requirements. This test has not been cleared or approved by the U.S. Food and Drug Administration. CRMP-5-IgG Western Blot, S Negative Negative 10/24/2023 5:13 PM CDT DTL Comment: ----ADDITIONAL INFORMATION---- This test was developed and its performance characteristics determined by [facility] in a manner consistent with CLIA requirements. This test has not been cleared or approved by the U.S. Food and Drug Administration. DPPX Ab CBA, S Negative Negative 10/24/2023 5:13 PM CDT DTL Comment: ----ADDITIONAL INFORMATION---- This test was developed and its performance characteristics determined by [facility] in a manner consistent with CLIA requirements. This test has not been cleared or approved by the U.S. Food and Drug Administration. JOSE-B-R Ab CBA, S Negative Negative 2023 5:13 PM CDT DTL Comment: ----ADDITIONAL INFORMATION---- This test was developed and its performance characteristics determined by [facility] in a manner consistent with CLIA requirements. This test has not been cleared or approved by the U.S. Food and Drug Administration. GAD65 Ab Assay, S 0.00 <=0.02 nmol/L 10/24/2023 5:13 PM CDT DTL Comment: ----ADDITIONAL INFORMATION---- This test was developed and its performance characteristics determined by [facility] in a manner consistent with CLIA requirements. This test has not been cleared or approved by the U.S. Food and Drug Administration. GFAP IFA, S Negative Negative 10/24/2023 5:13 PM CDT DTL Comment: ----ADDITIONAL INFORMATION---- This test was developed and its performance characteristics determined by [facility] in a manner consistent with CLIA requirements. This test has not been cleared or approved by the U.S. Food and Drug Administration. mGluR1 Ab IFA, S Negative Negative 10/24/19 24 5:13 PM CDT DTL Comment: ----ADDITIONAL INFORMATION---- This test was developed and its performance characteristics determined by [facility] in a manner consistent with CLIA requirements. This test has not been cleared or approved by the U.S. Food and Drug Administration. MOG FACS, S Negative Negative 10/24/2023 5:13 PM CDT DTL Comment: ----ADDITIONAL INFORMATION---- This test was developed and its performance characteristics determined by [facility] in a manner consistent with CLIA requirements. This test has not been cleared or approved by the U.S. Food and Drug Administration. NIF IFA, S Negative Negative 10/24/2023 5:13 PM CDT DTL Comment: ----ADDITIONAL INFORMATION---- This test was developed and its performance characteristics determined by [facility] in a manner consistent with CLIA requirements. This test has not been cleared or approved by the U.S. Food and Drug Administration. NMO/AQP4 FACS, S Negative Negative 10/24/19 24 5:13 PM CDT DTL Comment: ----ADDITIONAL INFORMATION---- This test was developed and its performance characteristics determined by [facility] in a manner consistent with CLIA requirements. This test has not been cleared or approved by the U.S. Food and Drug Administration. Neurochondrin IFA, S Negative Negative 10/24/2023 5:13 PM CDT DTL Comment: ----ADDITIONAL INFORMATION---- This test was developed and its performance characteristics determined by [facility] in a manner consistent with CLIA requirements. This test has not been cleared or approved by the U.S. Food and Drug Administration. GRAINER MACHINE-1, S Negative Negative 10/24/2023 5:13 PM CDT DTL Comment: ----ADDITIONAL INFORMATION---- This test was developed and its performance characteristics determined by [facility] in a manner consistent with CLIA requirements. This test has not been cleared or approved by the U.S. Food and Drug Administration. GRAINER MACHINE-2, S Negative Negative 10/24/2023 5:13 PM CDT DTL Comment: ----ADDITIONAL INFORMATION---- This test was developed and its performance characteristics determined by [facility] in a manner consistent with CLIA requirements. This test has not been cleared or approved by the U.S. Food and Drug Administration. Septin-7 IFA, S Negative Negative 4 5:13 PM CDT DTL Comment: ----ADDITIONAL INFORMATION---- This test was developed and its performance characteristics determined by [facility] in a manner consistent with CLIA requirements. This test has not been cleared or approved by the U.S. Food and Drug Administration. TRIM46 Ab IFA, S Negative Negative 10/24/19 5:13 PM CDT DTL Comment: ----ADDITIONAL INFORMATION---- This test was developed and its performance characteristics determined by [facility] in a manner consistent with CLIA requirements. This test has not been cleared or approved by the U.S. Food and Drug Administration. Blood (Blood, Venous) 10/17/2023 2:46 PM CDT 10/18/2023 10:15 AM CDT Tyson Carreon M.D. LAB BLOOD ADD-ON [facility] [address] [place] [address], [facility] DTL 200 [facility] [address] [place] [address] * Ganglioside Antibody Panel (10/17/2023 2:46 PM CDT) IgG Monos. GM1 Negative Negative 10/25/2023 2:11 PM CDT DTL Comment: ----ADDITIONAL INFORMATION---- This test was developed and its performance characteristics determined by [facility] in a manner consistent with CLIA requirements. This test has not been cleared or approved by the U.S. Food and Drug Administration. IgM Monos. GM1 Negative Negative 10/25/2023 2:11 PM CDT DTL Comment: ----ADDITIONAL INFORMATION---- This test was developed and its performance characteristics determined by [facility] in a manner consistent with CLIA requirements. This test has not been cleared or approved by the U.S. Food and Drug Administration. IgG Asialo. GM1 Negative Negative 4 2:11 PM CDT DTL Comment: ----ADDITIONAL INFORMATION---- This test was developed and its performance characteristics determined by [facility] in a manner consistent with CLIA requirements. This test has not been cleared or approved by the U.S. Food and Drug Administration. IgM Asialo. GM1 Negative Negative 4 2:11 PM CDT DTL Comment: ----ADDITIONAL INFORMATION---- This test was developed and its performance characteristics determined by [facility] in a manner consistent with CLIA requirements. This test has not been cleared or approved by the U.S. Food and Drug Administration. IgG Disialo. GD1b Negative Negative 024 2:11 PM CDT DTL Comment: ----ADDITIONAL INFORMATION---- This test was developed and its performance characteristics determined by [facility] in a manner consistent with CLIA requirements. This test has not been cleared or approved by the U.S. Food and Drug Administration. IgM Disialo. GD1b Negative Negative 024 2:11 PM CDT DTL Comment: ----ADDITIONAL INFORMATION---- This test was developed and its performance characteristics determined by [facility] in a manner consistent with CLIA requirements. This test has not been cleared or approved by the U.S. Food and Drug Administration. Blood (Blood, Venous) 10/17/2023 2:46 PM CDT 10/18/2023 10:15 AM CDT Tyson Carreon M.D. LAB BLOOD NON ADD-ON [facility] [address] [place] [address], [facility] DTL [address] [place] [address] * Quantitative M-protein Study (10/17/2023 2:43 PM CDT) Pathologist [facility] [place] Immunoglobulin A (IgA), S 87 61 - [...] developed and its performance characteristics determined by [facility] in a manner consistent with CLIA requirements. This test has not been cleared or approved by the U.S. Food and Drug Administration. Blood (Blood, Venous) 10/17/2023 2:43 PM CDT 10/18/2023 6:28 AM CDT Narrative [facility] - 10/19/2023 8:50 AM CDT Specimen Information: Specimen ID: [id number] Specimen Type: Blood Specimen Collection Start Date: 10/17/2023 11:00 PM Specimen Received Date: 10/18/2023 ??6:28 AM Specimen ID: [id number] Specimen Type: Blood Specimen Collection Start Date: 10/17/2023 ??2:43 PM Specimen Received Date: 10/18/2023 ??7:09 AM Tyson Carreon M.D. LAB BLOOD ADD-ON [facility] [address] [place] [address] [facility] [address] [place] [address] [facility] [place] [address] * T4 (Thyroxine), Free, Serum (10/17/2023 2:43 PM CDT) T4 (Thyroxine), Free, S 0.9 0.9 - 1.7 ng/dL 10/17/2023 3:57 PM CDT [facility] Blood 10/17/2023 2:43 PM CDT 10/17/2023 2:49 PM CDT Tyson Carreon M.D. LAB BLOOD ADD-ON [facility] [address] [place] [address], [facility] RDWG [facility] [place] [address] [place] [phone] * Methylmalonic Acid (MMA), Quantitative, Serum (10/17/2023 2:43 PM CDT) Methylmalonic Acid, QN, S 0.22 <=0.40 nmol/mL 10/20/2023 8:15 AM CDT DTL Comment: No cellular B-12 deficiency. ----ADDITIONAL INFORMATION---- This test was developed and its performance characteristics determined by [facility] in a manner consistent with CLIA requirements. This test has not been cleared or approved by the U.S. Food and Drug Administration. Blood 10/17/2023 2:43 PM CDT 10/18/2023 1:29 PM CDT Tyson Carreon M.D. LAB BLOOD NON ADD-ON Performing Organization Address City/[facility]/ZIP Co de Phone Number [facility] [address] [place] [address], [facility] DTL 200 [facility] [address] [place] [address] * Antinuclear Ab Bryant, S (10/17/2023 2:43 PM CDT) Antinuclear Ab Screen by IFA, S Negative Negative 10/19/2023 8:45 AM CDT ECLR Comment:No titer performed, COURT screen is negative. Blood (Blood, Venous) 10/17/2023 2:43 PM CDT 10/17/2023 9:02 PM CDT Tyson Carreon M.D. LAB BLOOD NON ADD-ON Performing Organization Address City/[facility]/ZIP Co de Phone Number [facility] [address] [place] [address], [facility] ECLR [address] [place] [phone] * (ABNORMAL) Thyroid Function Bryant (10/17/2023 2:43 PM CDT) TSH, Sensitive 10.3(H) 0.3 - 4.2 mIU/L 10/17/2023 3:35 PM CDT [facility] Blood (Blood, Venous) 10/17/2023 2:43 PM CDT 10/17/2023 2:49 PM CDT Tyson Carreon M.D. LAB BLOOD ADD-ON [facility] [address], [place] [address], [facility] RDWG [facility] [place] [address], [place] [address] * Pernicious Anemia Bryant (10/17/2023 2:43 PM CDT) Pathologist [facility] [place] Vitamin B12 Assay, S 248 180 - 914 ng/L 10/18/2023 11:55 AM CDT [facility] Comment:B-12 <400; MMA test was performed. Blood (Blood, Venous) 10/17/2023 2:43 PM CDT 10/18/2023 8:35 AM CDT Narrative [facility] - 10/18/2023 11:55 AM CDT Specimen Information: Specimen ID: [id number] Specimen Type: Blood Specimen Collection Start Date: 10/17/2023 ??2:43 PM Specimen Received Date: 10/18/2023 ??8:35 AM Specimen ID: [id number] Specimen Type: Blood Specimen Collection Start Date: 10/17/2023 ??2:43 PM Specimen Received Date: 10/18/2023 ??8:52 AM Tyson Carreon M.D. LAB BLOOD NON ADD-ON [facility] [address] [place] [address] [place] [id number] [place] [address] * Hexosaminidase A and Total Hexosaminidase, Leukocytes (10/17/2023 2:43 PM CDT) Pathologist [facility] [place] Hexosaminidase Total, WBC 23.9 16.4 - 36.2 [...] sales and leasing consultant or genetic counselor documentation nurse ( ) if you have any questions. 10/21/2023 2:17 PM CDT DTL Comment: ----ADDITIONAL INFORMATION---- Heat Inactivation, Fluorometric This test was developed and its performance characteristics determined by [facility] in a manner consistent with CLIA requirements. This test has not been cleared or approved by the U.S. Food and Drug Administration. Blood (Blood, Peripheral Draw) 10/17/2023 2:43 PM CDT 10/18/2023 7:40 AM CDT Tyson Carreon M.D. LAB GENETIC TESTING [facility] [address] [place] [address], [facility] DT [address] [facility] [address] [place] [address] * Cryopreservation for Molecular Genetic Studies (10/17/2023 [...] is not a DNA banking service. If alf, guaranteed specimen storage is required, DNA banking [...] M.D. LAB GENETIC TESTING Performing Organization Address City/[facility]/ZIP Co de Phone Number [facility] [address] [place] [address], [facility] DTL [address] [place] [address] * (ABNORMAL) Thyroperoxidase (TPO) Antibodies (10/17/2023 2:43 PM CDT) Thyroperoxidase Ab, S 125.9(H) <34.0 IU/mL 10/18/2023 3:45 AM CDT E[facility] Blood 10/17/2023 2:43 PM CDT 10/17/2023 9:04 PM CDT Tyson Carreon M.D. LAB BLOOD ADD-ON [facility] [address] [place] [address], [facility] ECLR [facility] [place] [address] [place] [address] * Copper (10/17/2023 2:43 PM CDT) Copper, S 115 77 - 206 mcg/dL 10/18/2023 10:42 AM CDT [facility] Comment: ----ADDITIONAL INFORMATION---- This test was developed and its performance characteristics determined by [facility] in a manner consistent with CLIA requirements. This test has not been cleared or approved by the U.S. Food and Drug Administration. Blood (Blood, Venous) 10/17/2023 2:43 PM CDT 10/17/2023 9:48 PM CDT Tyson Carreon M.D. LAB BLOOD NON ADD-ON [facility] [address] [place] [address] [facility] [address] [place] [address] * Phosphorus Inorganic (10/17/2023 2:43 PM CDT) Pathologist [facility] Phosphorus (Inorganic), P 3.0 2.5 - 4.5 mg/dL 10/17/2023 3:17 PM CDT [facility] Blood (Blood, Venous) 10/17/2023 2:43 PM CDT 10/17/2023 2:49 PM CDT Tyson Carreon M.D. LAB BLOOD ADD-ON Performing Organization Address City/[facility]/ZIP Co de Phone Number [facility] [address] [place] [address], [facility] RDWG [facility] [place] [address] [place] [address] * (ABNORMAL) Parathyroid Hormone (PTH) (10/17/2023 2:43 PM CDT) Parathyroid Hormone (PTH), S 74(H) 15 - 65 pg/mL 10/17/2023 3:27 PM CDT [facility] Comment: Biotin has been identified by the freelance court reporter as a potential interfering substance. Higher concentrations of biotin may be found in multivitamins, hair/nail supplements, and workout supplements. If the result does not match clinical observations, repeat testing after patient refrains from the use of supplements for at least 12 hours. Blood (Blood, Venous) 10/17/2023 2:43 PM CDT 10/17/2023 2:49 PM CDT Tyson Carreon M.D. LAB BLOOD ADD-ON Performing Organization Address City/[facility] Co de Phone Number [facility] [address] [place] [address], [facility] RDWG [facility] [place] [address] * Creatinine with Estimated GFR (10/17/2023 2:43 PM CDT) Creatinine 0.78 0.59 - 1.04 mg/dL 10/17/2023 3:17 PM CDT [facility] Estimated GFR (eGFR) 87 >=60 mL/min/BSA 10/17/2023 3:17 PM CDT [facility] Comment: Estimated GFR calculated using the 2020 CKD_EPI creatinine equation. Blood (Blood, Venous) 10/17/2023 2:43 PM CDT 10/17/2023 2:49 PM CDT Tyson Carreon M.D. LAB BLOOD ADD-ON Performing Organization Address [facility] Co de Phone Number [facility] [address] [address], [facility] RDWG [facility] [place] [address] [place] [phone] * CK (Creatine Kinase) (10/17/2023 2:43 PM CDT) Creatine Kinase, P 163 26 - 192 U/L 10/17/2023 3:17 PM CDT [facility] Blood (Blood, Venous) 10/17/2023 2:43 PM CDT 10/17/2023 2:49 PM CDT Tyson Carreon M.D. LAB BLOOD ADD-ON Performing Organization Address City/[facility] Co de Phone Number [facility] [address] [place] [address], [facility] [address] [address] * Calcium, Total (10/17/2023 2:43 PM CDT) Calcium, Total, P 9.3 8.6 - 10.0 mg/dL 10/17/2023 3:17 PM CDT [facility] Blood (Blood, Venous) 10/17/2023 2:43 PM CDT 10/17/2023 2:49 PM CDT Tyson Carreon M.D. LAB BLOOD ADD-ON Performing Organization Address [facility] de Phone Number [facility] [place] [address], [facility] in [address] [address] * Vitamin E Level (10/17/2023 2:39 PM CDT) A-Tocopherol, Vitamin E 13.6 5.5 - 17.0 mg/L 10/19/2023 8:25 AM CDT [facility] Comment: ----ADDITIONAL INFORMATION---- This test was developed and its performance characteristics determined by [facility] in a manner consistent with CLIA requirements. This test has not been cleared or approved by the U.[place]. Food and Drug Administration. Blood (Blood, Venous) 10/17/2023 2:39 PM CDT 10/18/2023 11:23 AM CDT Tyson Carreon M.D. LAB BLOOD NON ADD-ON Performing Organization Address City/[facility]/ZIP Co de Phone Number [facility] [place] [address] [place] [address] [facility] [address] [place] [id number] from Last 3 [place] [address]
--- OUTSIDE RECORDS SUMMARY | 2023-11-17 08:59 | XMS_ITS | Encounter Summary ---
Author Organization [facility] Address [address] [place] [address] Care Team Providers Care Child Watch Attendant Name Role Phone Unavailable Primary Care Provider Unavailabl e Reason for Referral * MRI/CAT/PET Scan (Routine) - Pending Review Specialty Diagnoses / Procedures Referred By Contac t Referred To Contact Radiology Diagnoses Other Motor Neuron Disease (HCC) Procedures MR Cervical Spine without and with IV Contrast Tyson Carreon M.D. [address] [place] [address] [facility] Referral ID Status Reason Start Date Expiration Date V isits Requested Visits Authorized [id number] Pending Review 10/18/2023 10/17/2024 1 1 * MRI/CAT/PET Scan (Routine) - Pending Review Specialty Diagnoses / Procedures Referred By Contac t Referred To Contact Radiology Diagnoses Anterior Horn Cell Disease (HCC) Procedures MR Brain without and with IV Contrast Tyson Carreon M.D. [address] [place] [address] [facility] Referral ID Status Reason Start Date Expiration Date V isits Requested Visits Authorized [id number] Pending Review 10/18/2023 10/17/2024 1 1 * Outpatient (Routine) - Closed Specialty Diagnoses / Procedures Referred By Contac t Referred To Contact Neurology Tyson Carreon M.D. [address] [place] [address] [facility] Referral ID Status Reason Start Date Expiration Date Visits Re quested Visits Authorized [id number] Closed 10/17/2023 04/17/2025 1 1 * Speech Pathology (Routine) - Authorized Specialty Diagnoses / Procedures Referred By Contac t Referred To Contact Diagnoses Other Motor Neuron Disease (HCC) Procedures CARDIOVASCULAR RADIOLOGIC TECHNOLOGIST Speech language evaluate and treat Tyson Carreon M.D. [address] [place] [address] [facility] Referral ID Status Reason Start Date Expiration Date V isits Requested Visits Authorized [id number] Authorized 10/17/2023 10/16/2024 1 1 * Outpatient (Routine) - Closed Specialty Diagnoses / Procedures Referred By Contac t Referred To Contact Diagnoses Other Motor Neuron Disease (HCC) Procedures EMG Tyson Carreon M.D. [address] [place] [address] [facility] Referral ID Status Reason Start Date Expiration Date Visits Re quested Visits Authorized [id number] Closed 10/17/2023 10/16/2024 1 1 Reason for Visit * Reason Comments Dysphagia * Outpatient (Routine) - Closed Specialty Diagnoses / Procedures Referred By Contac t Referred To Contact Neurology Tyson Carreon M.D. [address] [place] [phone] [facility] Referral ID Status Reason Start Date Expiration Date Visits Re quested Visits Authorized [id number] Closed 10/12/2023 04/12/2025 1 1 Encounter Details Date Type Department Care Team ([facility] st Contact Info) Description 10/17/2023 1:00 PM CDT Office Visit Department of Neurology in [place], [place] [address] [place] [phone] Tyson Carreon M.D. [address] [place] [address] Sclerosis Lateral Amyotrophic (HCC) (Primary Dx); Other Motor Neuron Disease (HCC); Anterior Horn Cell Disease (HCC) Discharge Disposition: Home or Self Care Social History Tobacco Use Types Packs/Day Years Used Date Smoking Tobacco: Never Smokeless Tobacco: Never Alcohol Use Standard Drinks/Week Comments Yes 5 (1 standard drink = 0.6 oz pur e alcohol) [facility] Utilities Answer Date Recorded In [...] dysarthriawhich is constant however worse in the paste mixer and in the evenings as well. She [...] A and Total Hexosaminidase, Leukocytes Antinuclear Ab [place], S Quantitative M-protein Study Parathyroid Hormone (PTH) Calcium, Total Phosphorus Inorganic Creatinine with Estimated GFR Vitamin E Level Ganglioside Antibody Panel Pernicious Anemia [place] Thyroid Function [place] Cryopreservation for Molecular Genetic Studies Neurology office visit (clinic) CARDIOVASCULAR RADIOLOGIC TECHNOLOGIST Speech language evaluate and treat EMG Pulmonary Function Tests PATIENT EDUCATION Ready to learn, no apparent learning barriers were identified; learning preferences include listening. Explained diagnosis and treatment plan; patient expressed understanding of the content. documented in this encounter Miscellaneous Notes * Addendum Note - Tyson Carreon M.D. - 10/17/2023 1:00 PM CDTAddended by: YTSON CARREON on: 10/18/2023 02:13 PM Modules accepted: [...] ? Final Report Study Number: 1 EMG Parquetry Layer: Kylie Alcocer 127 or [phone] Referred by: TYSON CARREON (127 or [phone]) Referred for: Query bulbar onset ALS Referral [...] and cervical myotomes. Alberto Alcocer (127 or [phone])/ACV NERVE CONDUCTIONS ??Record Rep ?? Normal ??Normal [...] Electromyography Final Report Study Number: 1 EMG Parquetry Layer: Kylie Alcocer 127 or [phone] Referred by: TYSON CARREON (127 or [phone]) Referred for: Query bulbar onset ALS Referral [...] and cervical myotomes. Alberto Alcocer (127 or [phone])/ACV NERVE CONDUCTIONS Record Rep Normal Normal Distal [...] - B LOOD ORDERABLES Performing Organization Address [facility] de Phone Number [facility] [address] [place] [address] ECLR [facility] [place] [address] * (ABNORMAL) Neurofilament Light Chain (NfL) (10/17/2023 2:49 PM CDT) Neurofilament Light Chain, P 70.7(H) <=25.4 pg/mL 10/19/2023 3:29 PM CDT [facility] Comment: ----ADDITIONAL INFORMATION---- The testing method is a digital immunoassay for the quantitative determination of NfL in plasma manufactured by [employer] and performed on the [employer] HD-X analyzer. Values obtained with different methods may be different and cannot be used interchangeably. This test was developed and its performance characteristics determined by [facility] in a manner consistent with CLIA requirements. This test has not been cleared or approved by the U.S. Food and Drug Administration. Blood (Blood, Venous) 10/17/2023 2:49 PM CDT 10/18/2023 8:38 AM CDT Tyson Carreon M.D. LAB BLOOD NON ADD-ON [facility] [facility] [address] [place] [address] [facility] [address] [place] [address] * Ganglioside Antibody Panel (10/17/2023 2:46 PM CDT) IgG Monos. GM1 Negative Negative 10/25/2023 2:11 PM CDT [facility] Comment: ----ADDITIONAL INFORMATION---- This test was developed and its performance characteristics determined by [facility] in a manner consistent with CLIA requirements. This test has not been cleared or approved by the U.S. Food and Drug Administration. IgM Monos. GM1 Negative Negative 10/25/2023 2:11 PM CDT [facility] Comment: ----ADDITIONAL INFORMATION---- This test was developed and its performance characteristics determined by [facility] in a manner consistent with CLIA requirements. This test has not been cleared or approved by the U.S. Food and Drug Administration. IgG Asialo. GM1 Negative Negative 4 2:11 PM CDT [facility] Comment: ----ADDITIONAL INFORMATION---- This test was developed and its performance characteristics determined by [facility] in a manner consistent with CLIA requirements. This test has not been cleared or approved by the U.S. Food and Drug Administration. IgM Asialo. GM1 Negative Negative 4 2:11 PM CDT [facility] Comment: ----ADDITIONAL INFORMATION---- This test was developed and its performance characteristics determined by [facility] in a manner consistent with CLIA requirements. This test has not been cleared or approved by the U.S. Food and Drug Administration. IgG Disialo. GD1b Negative Negative 024 2:11 PM CDT [facility] Comment: ----ADDITIONAL INFORMATION---- This test was developed and its performance characteristics determined by [facility] in a manner consistent with CLIA requirements. This test has not been cleared or approved by the U.S. Food and Drug Administration. IgM Disialo. GD1b Negative Negative 024 2:11 PM CDT [facility] Comment: ----ADDITIONAL INFORMATION---- This test was developed and its performance characteristics determined by [facility] in a manner consistent with CLIA requirements. This test has not been cleared or approved by the U.S. Food and Drug Administration. Blood (Blood, Venous) 10/17/2023 2:46 PM CDT 10/18/2023 10:15 AM CDT Tyson Carreon M.D. LAB BLOOD NON ADD-ON [facility] [address] [place] [address], [facility] DTL 200 [facility] [address] [place] [address] * Myelopathy, Autoimmune/Paraneoplastic Evaluation (10/17/2023 2:46 PM [...] developed and its performance characteristics determined by [facility] in a manner consistent with CLIA requirements. This test has not been cleared or approved by the U.S. Food and Drug Administration. AGNA-1, S Negative Negative 10/24/2023 5:13 PM CDT [facility] Comment: ----ADDITIONAL INFORMATION---- This test was developed and its performance characteristics determined by [facility] in a manner consistent with CLIA requirements. This test has not been cleared or approved by the U.S. Food and Drug Administration. NAEEM-1, S Negative Negative 10/24/2023 5:13 PM CDT [facility] Comment: ----ADDITIONAL INFORMATION---- This test was developed and its performance characteristics determined by [facility] in a manner consistent with CLIA requirements. This test has not been cleared or approved by the U.S. Food and Drug Administration. NAEEM-2, S Negative Negative 10/24/2023 5:13 PM CDT [facility] Comment: ----ADDITIONAL INFORMATION---- This test was developed and its performance characteristics determined by [facility] in a manner consistent with CLIA requirements. This test has not been cleared or approved by the U.S. Food and Drug Administration. NAEEM-3, S Negative Negative 10/24/2023 5:13 PM CDT [facility] Comment: ----ADDITIONAL INFORMATION---- This test was developed and its performance characteristics determined by [facility] in a manner consistent with CLIA requirements. This test has not been cleared or approved by the U.S. Food and Drug Administration. AP3B2 IFA, S Negative Negative 10/24/2023 5:13 PM CDT [facility] Comment: ----ADDITIONAL INFORMATION---- This test was developed and its performance characteristics determined by [facility] in a manner consistent with CLIA requirements. This test has not been cleared or approved by the U.S. Food and Drug Administration. CRMP-5-IgG Western Blot, S Negative Negative 10/24/2023 5:13 PM CDT [facility] Comment: ----ADDITIONAL INFORMATION---- This test was developed and its performance characteristics determined by [facility] in a manner consistent with CLIA requirements. This test has not been cleared or approved by the U.S. Food and Drug Administration. DPPX Ab CBA, S Negative Negative 10/24/2023 5:13 PM CDT [facility] Comment: ----ADDITIONAL INFORMATION---- This test was developed and its performance characteristics determined by [facility] in a manner consistent with CLIA requirements. This test has not been cleared or approved by the U.S. Food and Drug Administration. JOSE-B-R Ab CBA, S Negative Negative 2023 5:13 PM CDT [facility] Comment: ----ADDITIONAL INFORMATION---- This test was developed and its performance characteristics determined by [facility] in a manner consistent with CLIA requirements. This test has not been cleared or approved by the U.S. Food and Drug Administration. GAD65 Ab Assay, S 0.00 <=0.02 nmol/L 10/24/2023 5:13 PM CDT [facility] Comment: ----ADDITIONAL INFORMATION---- This test was developed and its performance characteristics determined by [facility] in a manner consistent with CLIA requirements. This test has not been cleared or approved by the U.S. Food and Drug Administration. GFAP IFA, S Negative Negative 10/24/2023 5:13 PM CDT [facility] Comment: ----ADDITIONAL INFORMATION---- This test was developed and its performance characteristics determined by [facility] in a manner consistent with CLIA requirements. This test has not been cleared or approved by the U.S. Food and Drug Administration. mGluR1 Ab IFA, S Negative Negative 10/24/19 5:13 PM CDT [facility] Comment: ----ADDITIONAL INFORMATION---- This test was developed and its performance characteristics determined by [facility] in a manner consistent with CLIA requirements. This test has not been cleared or approved by the U.S. Food and Drug Administration. MOG FACS, S Negative Negative 10/24/2023 5:13 PM CDT [facility] Comment: ----ADDITIONAL INFORMATION---- This test was developed and its performance characteristics determined by [facility] in a manner consistent with CLIA requirements. This test has not been cleared or approved by the U.S. Food and Drug Administration. NIF IFA, S Negative Negative 10/24/2023 5:13 PM CDT [facility] Comment: ----ADDITIONAL INFORMATION---- This test was developed and its performance characteristics determined by [facility] in a manner consistent with CLIA requirements. This test has not been cleared or approved by the U.S. Food and Drug Administration. NMO/AQP4 FACS, S Negative Negative 10/24/19 5:13 PM CDT [facility] Comment: ----ADDITIONAL INFORMATION---- This test was developed and its performance characteristics determined by [facility] in a manner consistent with CLIA requirements. This test has not been cleared or approved by the U.S. Food and Drug Administration. Neurochondrin IFA, S Negative Negative 10/24/2023 5:13 PM CDT [facility] Comment: ----ADDITIONAL INFORMATION---- This test was developed and its performance characteristics determined by [facility] in a manner consistent with CLIA requirements. This test has not been cleared or approved by the U.S. Food and Drug Administration. TALENT PARTNER-1, S Negative Negative 10/24/2023 5:13 PM CDT [facility] Comment: ----ADDITIONAL INFORMATION---- This test was developed and its performance characteristics determined by [facility] in a manner consistent with CLIA requirements. This test has not been cleared or approved by the U.S. Food and Drug Administration. TALENT PARTNER-2, S Negative Negative 10/24/2023 5:13 PM CDT [facility] Comment: ----ADDITIONAL INFORMATION---- This test was developed and its performance characteristics determined by [facility] in a manner consistent with CLIA requirements. This test has not been cleared or approved by the U.S. Food and Drug Administration. Septin-7 IFA, S Negative Negative 4 5:13 PM CDT [facility] Comment: ----ADDITIONAL INFORMATION---- This test was developed and its performance characteristics determined by [facility] in a manner consistent with CLIA requirements. This test has not been cleared or approved by the U.S. Food and Drug Administration. TRIM46 Ab IFA, S Negative Negative 10/24/19 24 5:13 PM CDT [facility] Comment: ----ADDITIONAL INFORMATION---- This test was developed and its performance characteristics determined by [facility] in a manner consistent with CLIA requirements. This test has not been cleared or approved by the U.S. Food and Drug Administration. Blood (Blood, Venous) 10/17/2023 2:46 PM CDT 10/18/2023 10:15 AM CDT Tyson Carreon M.D. LAB BLOOD ADD-ON [facility] [address] [place], [place] [id number] [place] [address] 200 [facility] [address] [place] [address] * Cryopreservation for Molecular Genetic Studies (10/17/2023 [...] LAB GENETIC TESTING Performing Organization Address City/[facility]/ZIP Co de Phone Number [facility] [address] [place] [address], [facility] DTL [address] [place] [address] * (ABNORMAL) Thyroid Function [place] (10/17/2023 2:43 PM CDT) [facility] TSH, Sensitive 10.3(H) 0.3 - 4.2 mIU/L 10/17/2023 3:35 PM CDT [facility] Blood (Blood, Venous) 10/17/2023 2:43 PM CDT 10/17/2023 2:49 PM CDT Tyson Carreon M.D. LAB BLOOD ADD-ON [facility] [address] [place] [address], [place] RDW[facility] [address] [place] [address] * Pernicious Anemia [place] (10/17/2023 2:43 PM CDT) Vitamin B12 Assay, S 248 180 - 914 ng/L 10/18/2023 11:55 AM CDT [facility] Comment:B-12 <400; MMA test was performed. Blood (Blood, Venous) 10/17/2023 2:43 PM CDT 10/18/2023 8:35 AM CDT Narrative [facility] - 10/18/2023 11:55 AM CDT Specimen Information: Specimen ID: [id number] Specimen Type: Blood Specimen Collection Start Date: 10/17/2023 ??2:43 PM Specimen Received Date: 10/18/2023 ??8:35 AM Specimen ID: [id number] Specimen Type: Blood Specimen Collection Start Date: 10/17/2023 ??2:43 PM Specimen Received Date: 10/18/2023 ??8:52 AM Tyson Carreon M.D. LAB BLOOD NON ADD-ON [facility] [address] [place] [address] [facility] [address] [place] [address] * Creatinine with Estimated GFR (10/17/2023 2:43 PM CDT) Creatinine 0.78 0.59 - 1.04 mg/dL 10/17/2023 3:17 PM CDT [facility] Estimated GFR (eGFR) 87 >=60 mL/min/BSA 10/17/2023 3:17 PM CDT [facility] Comment: Estimated GFR calculated using the 2020 CKD_EPI creatinine equation. Blood (Blood, Venous) 10/17/2023 2:43 PM CDT 10/17/2023 2:49 PM CDT Tyson Carreon M.D. LAB BLOOD ADD-ON [facility] [address] [place] [address], [facility] RDWG [facility] [address] [address] * Phosphorus Inorganic (10/17/2023 2:43 PM CDT) Phosphorus (Inorganic), P 3.0 2.5 - 4.5 mg/dL 10/17/2023 3:17 PM CDT [facility] Blood (Blood, Venous) 10/17/2023 2:43 PM CDT 10/17/2023 2:49 PM CDT Tyson Carreon M.D. LAB BLOOD ADD-ON [facility] [address] [place] [address], [place] [address], [facility] [address] [place] [address] * Calcium, Total (10/17/2023 2:43 PM CDT) Calcium, Total, P 9.3 8.6 - 10.0 mg/dL 10/17/2023 3:17 PM CDT [facility] Blood (Blood, Venous) 10/17/2023 2:43 PM CDT 10/17/2023 2:49 PM CDT Tyson Carreon M.D. LAB BLOOD ADD-ON [facility] [address] [place] [address], [place] [address], [address] [place] [address] * (ABNORMAL) Parathyroid Hormone (PTH) (10/17/2023 2:43 PM CDT) Parathyroid Hormone (PTH), S 74(H) 15 - 65 pg/mL 10/17/2023 3:27 PM CDT [facility] Comment: Biotin has been identified by the farm mechanic apprentice as a potential interfering substance. Higher concentrations of biotin may be found in multivitamins, hair/nail supplements, and workout supplements. If the result does not match clinical observations, repeat testing after patient refrains from the use of supplements for at least 12 hours. Blood (Blood, Venous) 10/17/2023 2:43 PM CDT 10/17/2023 2:49 PM CDT Tyson Carreon M.D. LAB BLOOD ADD-ON [facility] [address] [place] [address], [facility] RDWG [facility] [address] [place] [address] * Quantitative M-protein Study (10/17/2023 2:43 PM [...] developed and its performance characteristics determined by [facility] in a manner consistent with CLIA requirements. This test has not been cleared or approved by the U.S. Food and Drug Administration. Blood (Blood, Venous) 10/17/2023 2:43 PM CDT 10/18/2023 6:28 AM CDT Narrative [facility] - 10/19/2023 8:50 AM CDT Specimen Information: Specimen ID: [id number] Specimen Type: Blood Specimen Collection Start Date: 10/17/2023 11:00 PM Specimen Received Date: 10/18/2023 ??6:28 AM Specimen ID: [id number] Specimen Type: Blood Specimen Collection Start Date: 10/17/2023 ??2:43 PM Specimen Received Date: 10/18/2023 ??7:09 AM Tyson Carreon M.D. LAB BLOOD ADD-ON [facility] [address] [place] [address] [facility] [address] [place] [address] [place] [id number] [place] [address] * Antinuclear Ab [place], S (10/17/2023 2:43 PM CDT) Pathologist [facility] Antinuclear Ab Screen by IFA, S Negative Negative 10/19/2023 8:45 AM CDT [facility] Comment:No titer performed, COURT screen is negative. Blood (Blood, Venous) 10/17/2023 2:43 PM CDT 10/17/2023 9:02 PM CDT Tyson Carreon M.D. LAB BLOOD NON ADD-ON Performing Organization Address City/[facility]/ZIP Co de Phone Number [facility] [address] [place] [address], [facility] ECLR [address] [place] [phone] * Hexosaminidase A and Total Hexosaminidase, Leukocytes [...] test MUGS). Please contact the [employer] advanced manufacturing consultant or genetic counselor corrosion control fitter ( ) if you have any questions. 10/21/2023 2:17 PM CDT [facility] Comment: ----ADDITIONAL INFORMATION---- Heat Inactivation, Fluorometric This test was developed and its performance characteristics determined by [facility] in a manner consistent with CLIA requirements. This test has not been cleared or approved by the U.S. Food and Drug Administration. Blood (Blood, Peripheral Draw) 10/17/2023 2:43 PM CDT 10/18/2023 7:40 AM CDT Tyson Carreon M.D. LAB GENETIC TESTING [facility] [address] [place] [address], [facility] DT [address] [facility] [address] [place] [address] * Copper (10/17/2023 2:43 PM CDT) [facility] Copper, S 115 77 - 206 mcg/dL 10/18/2023 10:42 AM CDT [facility] Comment: ----ADDITIONAL INFORMATION---- This test was developed and its performance characteristics determined by [facility] in a manner consistent with CLIA requirements. This test has not been cleared or approved by the U.S. Food and Drug Administration. Blood (Blood, Venous) 10/17/2023 2:43 PM CDT 10/17/2023 9:48 PM CDT Tyson Carreon M.D. LAB BLOOD NON ADD-ON Performing Organization Address City/[facility]/ZIP Co de Phone Number [facility] [address] [place] [address] [facility] [address] [place] [address] * CK (Creatine Kinase) (10/17/2023 2:43 PM CDT) Creatine Kinase, P 163 26 - 192 U/L 10/17/2023 3:17 PM CDT [facility] Blood (Blood, Venous) 10/17/2023 2:43 PM CDT 10/17/2023 2:49 PM CDT Tyson Carreon M.D. LAB BLOOD ADD-ON Performing Organization Address [facility] Co de Phone Number [facility] [address] [place] [address], [facility] RDWG [facility] [address] [place] [address] * Vitamin E Level (10/17/2023 2:39 PM CDT) [facility] A-Tocopherol, Vitamin E 13.6 5.5 - 17.0 mg/L 10/19/2023 8:25 AM CDT [facility] Comment: ----ADDITIONAL INFORMATION---- This test was developed and its performance characteristics determined by [facility] in a manner consistent with CLIA requirements. This test has not been cleared or approved by the U.S. Food and Drug Administration. Blood (Blood, Venous) 10/17/2023 2:39 PM CDT 10/18/2023 11:23 AM CDT Tyson Carreon M.D. LAB BLOOD NON ADD-ON Performing Organization Address City/[facility]/ZIP Co de Phone Number [facility] [address] [place] [address] [facility] [address] 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
--- OUTSIDE RECORDS SUMMARY | 2023-11-17 08:59 | XMS_ITS | Encounter Summary ---
Author Organization [facility] Address [address] [place] [address] Care Team Providers Care Broomcorn Grader Name Role Phone Unavailable Primary Care Provider Unavailabl e Reason for Referral * Medication Prior Authorization - Closed Specialty Diagnoses / Procedures Referred By Paolo llanos Referred To Contact Lizandro Carreon M.D. [address] [place] [address] Referral ID Status Reason Start Date Expiration Date Visits Re quested Visits Authorized [id number] Closed 1 1 * Outpatient (Routine) - Authorized Specialty Diagnoses / Procedures Referred By Contac t Referred To Contact Neurology Diagnoses Sclerosis Lateral Amyotrophic (HCC) Lizandro Carreon M.D. [address] [place] [address] Referral ID Status Reason Start Date Expiration Date V isits Requested Visits Authorized [id number] Authorized 10/26/2023 04/26/2025 1 1 * Outpatient (Routine) - Authorized Specialty Diagnoses / Procedures Referred By Contac t Referred To Contact Speech Language Pathology Diagnoses Sclerosis Lateral Amyotrophic (HCC) Lizandro Carreon M.D. [address] [place] [address] Referral ID Status Reason Start Date Expiration Date Visits Requested Visits Authorized [id number] Authorized Patient Preference 10/26/2023 04/26/2025 1 1 * Outpatient (Routine) - Authorized Specialty Diagnoses / Procedures Referred By Paolo llanos Referred To Contact Respiratory Therapy Diagnoses Sclerosis Lateral Amyotrophic (HCC) Lizandro Carreon M.D. [address] [place] [address] Referral ID Status Reason Start Date Expiration Date V isits Requested Visits Authorized [id number] Authorized 10/26/2023 04/26/2025 1 1 Reason for Visit * Reason Comments motor neuron disease Follow up * Outpatient (Routine) - Closed Specialty Diagnoses / Procedures Referred By Paolo llanos Referred To Contact Neurology Lizandro Carreon M.D. [address] [place] [address] [facility] Region Referral ID Status Reason Start Date Expiration Date Visits Re quested Visits Authorized [id number] Closed 10/17/2023 04/17/2025 1 1 Encounter Details Date Type Department Care Team (Late st Contact Info) Description 10/25/2023 3:30 PM CDT Office Visit Department of Neurology in [address] [phone] Lizandro Carreon M.D. [address] [place] [address] Sclerosis Lateral Amyotrophic (HCC) (Primary Dx) Discharge Disposition: Home or Self Care Social History Tobacco Use Types Packs/Day Years Used Date Smoking Tobacco: Never Smokeless Tobacco: Never Alcohol Use Standard Drinks/Week Comments Yes 5 (1 standard drink = 0.6 oz pur e alcohol) [facility] Utilities Answer Date Recorded In the past 12 months has [employer], gas, oil, or water [employer] threatened to shut off services in your [...] your living situation today? 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 Overall these [...] like to see a neuromuscular subspecialist in [place], I could expedite this but there are [...] diagnoses (which were out of network at [facility]), as these were medically necessary and also many of labs would have been send-out to [facility] or another tertiary referral center as many [...] We discussed clinical research studies in ALS. [facility] complications - ALS is a disorder that [...]
--- OUTSIDE RECORDS SUMMARY | 2023-11-17 08:59 | XMS_ITS | Encounter Summary ---
Author Organization [facility] Address [address] [place] [address] Care Team Providers Care Postdoctoral Research Fellow Name Role Phone Unavailable Primary Care Provider Unavailabl e Reason for Referral * Outpatient (Routine) - Closed Specialty Diagnoses / Procedures Referred By Paolo llanos Referred To Contact Diagnoses Other Motor Neuron Disease (HCC) Procedures [place] [address] [facility] Referral ID Status Reason Start Date Expiration Date Visits Re quested Visits Authorized [id number] Closed 10/17/2023 10/16/2024 1 1 Reason for Visit * Outpatient (Routine) - Closed Specialty Diagnoses / Procedures Referred By Paolo llanos Referred To Contact Diagnoses Other Motor Neuron Disease (HCC) Procedures [place] [address] [facility] Referral ID Status Reason Start Date Expiration Date Visits Re quested Visits Authorized [id number] Closed 10/17/2023 10/16/2024 1 1 Encounter Details Date Type Department Care Team (Latest Contact Info) Description 10/19/2023 7:11 AM CDT - 10/19/2023 11:59 PM CDT Hospital Encounter Department of Neurology in [place], [place] [address] [place] [phone] Tyson Carreon M.D. [address] [place] [address] Other Motor Neuron Disease (HCC) Discharge Disposition: Home or Self Care Social History Tobacco Use Types Packs/Day Years Used Date Smoking Tobacco: Never Smokeless Tobacco: Never Alcohol Use Standard Drinks/Week Comments Yes 5 (1 standard drink = 0.6 oz pur e alcohol) [facility] Utilities Answer Date Recorded In the past 12 months has e [employer], gas, oil, or water [employer] threatened to shut off services in your [...] your living situation today? I have a [facility] place to live 10/22/2023 Sex and [...] ? Final Report Study Number: 1 EMG [employer] Laborer: Kylie Alcocer 127 or [phone] Referred by: TYSON CARREON (127 or [phone]) Referred for: Query bulbar onset ALS Referral [...] and cervical myotomes. Alberto Alcocer (127 or [phone])/ACV NERVE CONDUCTIONS ??Record Rep ?? Normal ??Normal [...] Electromyography Final Report Study Number: 1 EM[facility] [employer]: Kylie Alcocer [phone] or [phone] Referred by: TYSON CARREON (127 or [phone]) Referred for: Query bulbar onset ALS Referral [...] and cervical myotomes. Alberto Alcocer (127 or [phone])/ACV NERVE CONDUCTIONS Record Rep Normal Normal Distal [...] Carreon M.D. NEUROLOGY ORDERABLES Performing Organization Address City/State/[facility] Co de Phone Number EMG documented in this encounter Visit Diagnoses Diagnosis Other Motor Neuron Disease (HCC) documented in this encounter
--- OUTSIDE RECORDS SUMMARY | 2023-11-17 08:59 | XMS_ITS | Encounter Summary ---
Author Organization [facility] Address [address] [place] [address] Care Team Providers Care Net Application Support Specialist Name Role Phone Unavailable Primary Care Provider Unavailabl e Encounter Details Date Type Department Care Team (Latest Contact Info) Description 10/17/2023 2:11 PM CDT - 10/17/2023 11:59 PM CDT Hospital Encounter Department of Laboratory Medicine in [address] [phone] Lizandro López M.D. [address] [place] [phone] Other Motor Neuron Disease (HCC) Discharge Disposition: [...] PM CDT Other Motor Neuron Disease (HCC) RI T4 FREE Routine 10/17/2023 2:43 PM CDT RI ORGANIC ACID 1 QUANT 2 Routine 10/17/2023 [...] LAB MICROBIOLOGY - B LOOD ORDERABLES [facility] [address] [place] [address], [facility] ECLR [facility] in [place] [address] [place] [address] * (ABNORMAL) Neurofilament Light Chain (NfL) (10/17/2023 2:49 PM CDT) Neurofilament Light Chain, P 70.7(H) <=25.4 pg/mL 10/19/2023 3:29 PM CDT [facility] Comment: ----ADDITIONAL INFORMATION---- The testing method is a digital immunoassay for the quantitative determination of NfL in plasma manufactured by [employer] and performed on the Cycle Money-X analyzer. Values obtained with different methods may be different and cannot be used interchangeably. This test was developed and its performance characteristics determined by [facility] in a manner consistent with CLIA requirements. This test has not been cleared or approved by the U.S. Food and Drug Administration. Blood (Blood, Venous) 10/17/2023 2:49 PM CDT 10/18/2023 8:38 AM CDT Lizandro López M.D. LAB BLOOD NON ADD-ON [facility] [place] [address] [place] [address] [facility] [address] [place] [address] * Ganglioside Antibody Panel (10/17/2023 2:46 PM CDT) IgG Monos. GM1 Negative Negative 10/25/2023 2:11 PM CDT DTL Comment: ----ADDITIONAL INFORMATION---- This test was developed and its performance characteristics determined by [facility] in a manner consistent with CLIA requirements. This test has not been cleared or approved by the U.S. Food and Drug Administration. IgM Monos. GM1 Negative Negative 10/25/2023 2:11 PM CDT DTL Comment: ----ADDITIONAL INFORMATION---- This test was developed and its performance characteristics determined by [facility] in a manner consistent with CLIA requirements. This test has not been cleared or approved by the U.S. Food and Drug Administration. IgG Asialo. GM1 Negative Negative 4 2:11 PM CDT DTL Comment: ----ADDITIONAL INFORMATION---- This test was developed and its performance characteristics determined by [facility] in a manner consistent with CLIA requirements. This test has not been cleared or approved by the U.S. Food and Drug Administration. IgM Asialo. GM1 Negative Negative 4 2:11 PM CDT DTL Comment: ----ADDITIONAL INFORMATION---- This test was developed and its performance characteristics determined by [facility] in a manner consistent with CLIA requirements. This test has not been cleared or approved by the U.S. Food and Drug Administration. IgG Disialo. GD1b Negative Negative 024 2:11 PM CDT DTL Comment: ----ADDITIONAL INFORMATION---- This test was developed and its performance characteristics determined by [facility] in a manner consistent with CLIA requirements. This test has not been cleared or approved by the U.S. Food and Drug Administration. IgM Disialo. GD1b Negative Negative 024 2:11 PM CDT DTL Comment: ----ADDITIONAL INFORMATION---- This test was developed and its performance characteristics determined by [facility] in a manner consistent with CLIA requirements. This test has not been cleared or approved by the U.S. Food and Drug Administration. Blood (Blood, Venous) 10/17/2023 2:46 PM CDT 10/18/2023 10:15 AM CDT Lizandro López M.D. LAB BLOOD NON ADD-ON [facility] [address] [place] [address], [facility] DTL [address] [place] [address] * Myelopathy, Autoimmune/Paraneoplastic Evaluation (10/17/2023 2:46 PM [...] developed and its performance characteristics determined by [facility] in a manner consistent with CLIA requirements. This test has not been cleared or approved by the U.S. Food and Drug Administration. AGNA-1, S Negative Negative 10/24/2023 5:13 PM CDT DTL Comment: ----ADDITIONAL INFORMATION---- This test was developed and its performance characteristics determined by [facility] in a manner consistent with CLIA requirements. This test has not been cleared or approved by the U.S. Food and Drug Administration. NAEEM-1, S Negative Negative 10/24/2023 5:13 PM CDT DTL Comment: ----ADDITIONAL INFORMATION---- This test was developed and its performance characteristics determined by [facility] in a manner consistent with CLIA requirements. This test has not been cleared or approved by the U.S. Food and Drug Administration. NAEEM-2, S Negative Negative 10/24/2023 5:13 PM CDT DTL Comment: ----ADDITIONAL INFORMATION---- This test was developed and its performance characteristics determined by [facility] in a manner consistent with CLIA requirements. This test has not been cleared or approved by the U.S. Food and Drug Administration. NAEEM-3, S Negative Negative 10/24/2023 5:13 PM CDT DTL Comment: ----ADDITIONAL INFORMATION---- This test was developed and its performance characteristics determined by [facility] in a manner consistent with CLIA requirements. This test has not been cleared or approved by the U.S. Food and Drug Administration. AP3B2 IFA, S Negative Negative 10/24/2023 5:13 PM CDT DTL Comment: ----ADDITIONAL INFORMATION---- This test was developed and its performance characteristics determined by [facility] in a manner consistent with CLIA requirements. This test has not been cleared or approved by the U.S. Food and Drug Administration. CRMP-5-IgG Western Blot, S Negative Negative 10/24/2023 5:13 PM CDT DTL Comment: ----ADDITIONAL INFORMATION---- This test was developed and its performance characteristics determined by [facility] in a manner consistent with CLIA requirements. This test has not been cleared or approved by the U.S. Food and Drug Administration. DPPX Ab CBA, S Negative Negative 10/24/2023 5:13 PM CDT DTL Comment: ----ADDITIONAL INFORMATION---- This test was developed and its performance characteristics determined by [facility] in a manner consistent with CLIA requirements. This test has not been cleared or approved by the U.S. Food and Drug Administration. JOSE-B-R Ab CBA, S Negative Negative 2023 5:13 PM CDT DTL Comment: ----ADDITIONAL INFORMATION---- This test was developed and its performance characteristics determined by [facility] in a manner consistent with CLIA requirements. This test has not been cleared or approved by the U.S. Food and Drug Administration. GAD65 Ab Assay, S 0.00 <=0.02 nmol/L 10/24/2023 5:13 PM CDT DTL Comment: ----ADDITIONAL INFORMATION---- This test was developed and its performance characteristics determined by [facility] in a manner consistent with CLIA requirements. This test has not been cleared or approved by the U.S. Food and Drug Administration. GFAP IFA, S Negative Negative 10/24/2023 5:13 PM CDT DTL Comment: ----ADDITIONAL INFORMATION---- This test was developed and its performance characteristics determined by [facility] in a manner consistent with CLIA requirements. This test has not been cleared or approved by the U.S. Food and Drug Administration. mGluR1 Ab IFA, S Negative Negative 10/24/19 24 5:13 PM CDT DTL Comment: ----ADDITIONAL INFORMATION---- This test was developed and its performance characteristics determined by [facility] in a manner consistent with CLIA requirements. This test has not been cleared or approved by the U.S. Food and Drug Administration. MOG FACS, S Negative Negative 10/24/2023 5:13 PM CDT DTL Comment: ----ADDITIONAL INFORMATION---- This test was developed and its performance characteristics determined by [facility] in a manner consistent with CLIA requirements. This test has not been cleared or approved by the U.S. Food and Drug Administration. NIF IFA, S Negative Negative 10/24/2023 5:13 PM CDT DTL Comment: ----ADDITIONAL INFORMATION---- This test was developed and its performance characteristics determined by [facility] in a manner consistent with CLIA requirements. This test has not been cleared or approved by the U.S. Food and Drug Administration. NMO/AQP4 FACS, S Negative Negative 10/24/19 24 5:13 PM CDT DTL Comment: ----ADDITIONAL INFORMATION---- This test was developed and its performance characteristics determined by [facility] in a manner consistent with CLIA requirements. This test has not been cleared or approved by the U.S. Food and Drug Administration. Neurochondrin IFA, S Negative Negative 10/24/2023 5:13 PM CDT DTL Comment: ----ADDITIONAL INFORMATION---- This test was developed and its performance characteristics determined by [facility] in a manner consistent with CLIA requirements. This test has not been cleared or approved by the U.S. Food and Drug Administration. REED CLEANER-1, S Negative Negative 10/24/2023 5:13 PM CDT DTL Comment: ----ADDITIONAL INFORMATION---- This test was developed and its performance characteristics determined by [facility] in a manner consistent with CLIA requirements. This test has not been cleared or approved by the U.S. Food and Drug Administration. REED CLEANER-2, S Negative Negative 10/24/2023 5:13 PM CDT DTL Comment: ----ADDITIONAL INFORMATION---- This test was developed and its performance characteristics determined by [facility] in a manner consistent with CLIA requirements. This test has not been cleared or approved by the U.S. Food and Drug Administration. Septin-7 IFA, S Negative Negative 4 5:13 PM CDT DTL Comment: ----ADDITIONAL INFORMATION---- This test was developed and its performance characteristics determined by [facility] in a manner consistent with CLIA requirements. This test has not been cleared or approved by the U.S. Food and Drug Administration. TRIM46 Ab IFA, S Negative Negative 10/24/19 24 5:13 PM CDT DTL Comment: ----ADDITIONAL INFORMATION---- This test was developed and its performance characteristics determined by [facility] in a manner consistent with CLIA requirements. This test has not been cleared or approved by the U.S. Food and Drug Administration. Blood (Blood, Venous) 10/17/2023 2:46 PM CDT 10/18/2023 10:15 AM CDT Lizandro López M.D. LAB BLOOD ADD-ON Performing Organization Address [facility] de Phone Number [facility] [address] DT [address] [place] [address] * Methylmalonic Acid (MMA), Quantitative, Serum (10/17/2023 2:43 PM CDT) Methylmalonic Acid, QN, S 0.22 <=0.40 nmol/mL 10/20/2023 8:15 AM CDT DT Comment: No cellular B-12 deficiency. ----ADDITIONAL INFORMATION---- This test was developed and its performance characteristics determined by [facility] in a manner consistent with CLIA requirements. This test has not been cleared or approved by the U.S. Food and Drug Administration. Blood 10/17/2023 2:43 PM CDT 10/18/2023 1:29 PM CDT Lizandro López M.D. LAB BLOOD NON ADD-ON Performing Organization Address [facility] de Phone Number [facility] [address] [place] [address], [facility] DT 200 [facility] 200 [place] [address] * T4 (Thyroxine), Free, Serum (10/17/2023 2:43 PM CDT) T4 (Thyroxine), Free, S 0.9 0.9 - 1.7 ng/dL 10/17/2023 3:57 PM CDT [facility] Blood 10/17/2023 2:43 PM CDT 10/17/2023 2:49 PM CDT Lizandro López M.D. LAB BLOOD ADD-ON [facility] [address] [place] [address], [facility] RDWG [facility] [place] [address] [phone] * (ABNORMAL) Thyroperoxidase (TPO) Antibodies (10/17/2023 2:43 PM CDT) Thyroperoxidase Ab, S 125.9(H) <34.0 IU/mL 10/18/2023 3:45 AM CDT ECL[facility] Blood 10/17/2023 2:43 PM CDT 10/17/2023 9:04 PM CDT Lizandro López M.D. LAB BLOOD ADD-ON Performing Organization Address City/[facility]/ZIP Co de Phone Number [facility] [address] [place] [address], [facility] ECLR [facility] [place] [address] * Cryopreservation for Molecular Genetic Studies (10/17/2023 [...] TESTING Performing Organization Address City/[facility]/ZIP Co de Phone Number [facility] [address] [place] [address], [facility] DTL [address] [facility] [address] [place] [address] * (ABNORMAL) Thyroid Function [place] (10/17/2023 2:43 PM CDT) TSH, Sensitive 10.3(H) 0.3 - 4.2 mIU/L 10/17/2023 3:35 PM CDT [facility] Blood (Blood, Venous) 10/17/2023 2:43 PM CDT 10/17/2023 2:49 PM CDT Lizandro López M.D. LAB BLOOD ADD-ON Performing Organization Address City/[facility]/ZIP Co de Phone Number [facility] [address] [place] [address], [facility] RDWG [facility] [place] [address] [place] [phone] * Pernicious Anemia [place] (10/17/2023 2:43 PM CDT) Vitamin B12 Assay, S 248 180 - 914 ng/L 10/18/2023 11:55 AM CDT [facility] Comment:B-12 <400; MMA test was performed. Blood (Blood, Venous) 10/17/2023 2:43 PM CDT 10/18/2023 8:35 AM CDT Narrative [facility] - 10/18/2023 11:55 AM CDT Specimen Information: Specimen ID: [id number] Specimen Type: Blood Specimen Collection Start Date: 10/17/2023 ??2:43 PM Specimen Received Date: 10/18/2023 ??8:35 AM Specimen ID: [id number] Specimen Type: Blood Specimen Collection Start Date: 10/17/2023 ??2:43 PM Specimen Received Date: 10/18/2023 ??8:52 AM Lizandro López M.D. LAB BLOOD NON ADD-ON Performing Organization Address City/[facility]/ZIP Co de Phone Number [facility] [address] [place] [address] [facility] [address] [place] [address] * Creatinine with Estimated GFR (10/17/2023 2:43 PM CDT) Creatinine 0.78 0.59 - 1.04 mg/dL 10/17/2023 3:17 PM CDT [facility] Estimated GFR (eGFR) 87 >=60 mL/min/BSA 10/17/2023 3:17 PM CDT [facility] Comment: Estimated GFR calculated using the 2020 CKD_EPI creatinine equation. Blood (Blood, Venous) 10/17/2023 2:43 PM CDT 10/17/2023 2:49 PM CDT Lizandro López M.D. LAB BLOOD ADD-ON [facility] [address] [place] [address], [facility] RDWG [facility] [place] [address] [place] [address] * Phosphorus Inorganic (10/17/2023 2:43 PM CDT) Phosphorus (Inorganic), P 3.0 2.5 - 4.5 mg/dL 10/17/2023 3:17 PM CDT [facility] Blood (Blood, Venous) 10/17/2023 2:43 PM CDT 10/17/2023 2:49 PM CDT Lizandro López M.D. LAB BLOOD ADD-ON Performing Organization Address [facility] Co de Phone Number [facility] [address] [place] [address], [facility] in [address] [place] [address] * Calcium, Total (10/17/2023 2:43 PM CDT) Calcium, Total, P 9.3 8.6 - 10.0 mg/dL 10/17/2023 3:17 PM CDT [facility] Blood (Blood, Venous) 10/17/2023 2:43 PM CDT 10/17/2023 2:49 PM CDT Lizandro López M.D. LAB BLOOD ADD-ON Performing Organization Address [facility] de Phone Number [facility] [address] [place] [address], [facility] in [address] [address] * (ABNORMAL) Parathyroid Hormone (PTH) (10/17/2023 2:43 PM CDT) Parathyroid Hormone (PTH), S 74(H) 15 - 65 pg/mL 10/17/2023 3:27 PM CDT [facility] Comment: Biotin has been identified by the survey manager as a potential interfering substance. Higher concentrations of biotin may be found in multivitamins, hair/nail supplements, and workout supplements. If the result does not match clinical observations, repeat testing after patient refrains from the use of supplements for at least 12 hours. Blood (Blood, Venous) 10/17/2023 2:43 PM CDT 10/17/2023 2:49 PM CDT Lizandro López M.D. LAB BLOOD ADD-ON [facility] [address], [place] [address], [facility] RDWG [facility] [place] [address], [place] [address] * Quantitative M-protein Study (10/17/2023 2:43 PM [...] developed and its performance characteristics determined by [facility] in a manner consistent with CLIA requirements. This test has not been cleared or approved by the U.S. Food and Drug Administration. Blood (Blood, Venous) 10/17/2023 2:43 PM CDT 10/18/2023 6:28 AM CDT Narrative [facility] - 10/19/2023 8:50 AM CDT Specimen Information: Specimen ID: [id number] Specimen Type: Blood Specimen Collection Start Date: 10/17/2023 11:00 PM Specimen Received Date: 10/18/2023 ??6:28 AM Specimen ID: [id number] Specimen Type: Blood Specimen Collection Start Date: 10/17/2023 ??2:43 PM Specimen Received Date: 10/18/2023 ??7:09 AM Lizandro López M.D. LAB BLOOD ADD-ON [facility] [address] [place] [address] [facility] [address] [place] [address] [facility] [address] [place] [address] * Antinuclear Ab [place], S (10/17/2023 2:43 PM CDT) Pathologist [facility] Antinuclear Ab Screen by IFA, S Negative Negative 10/19/2023 8:45 AM CDT ECLR Comment:No titer performed, COURT screen is negative. Blood (Blood, Venous) 10/17/2023 2:43 PM CDT 10/17/2023 9:02 PM CDT Lizandro López M.D. LAB BLOOD NON ADD-ON [facility] [address] [place] [address], [facility] ECLR [address] [place] [phone] * Hexosaminidase A and Total Hexosaminidase, Leukocytes (10/17/2023 2:43 PM CDT) Pathologist [facility] Hexosaminidase Total, WBC 23.9 16.4 - 36.2 [...] test MUGS). Please contact the [employer] oracle hyperion consultant or genetic counselor family health nurse practitioner ( ) if you have any questions. 10/21/2023 2:17 PM CDT DT Comment: ----ADDITIONAL INFORMATION---- Heat Inactivation, Fluorometric This test was developed and its performance characteristics determined by [facility] in a manner consistent with CLIA requirements. This test has not been cleared or approved by the U.S. Food and Drug Administration. Blood (Blood, Peripheral Draw) 10/17/2023 2:43 PM CDT 10/18/2023 7:40 AM CDT Lizandro López M.D. LAB GENETIC TESTING Performing Organization Address City/[facility]/ZIP Co de Phone Number [facility] [address] [place] [address], [facility] DTL [address] [facility] [address] [place] [address] * Copper (10/17/2023 2:43 PM CDT) [facility] Copper, S 115 77 - 206 mcg/dL 10/18/2023 10:42 AM CDT [facility] Comment: ----ADDITIONAL INFORMATION---- This test was developed and its performance characteristics determined by [facility] in a manner consistent with CLIA requirements. This test has not been cleared or approved by the U.S. Food and Drug Administration. Blood (Blood, Venous) 10/17/2023 2:43 PM CDT 10/17/2023 9:48 PM CDT Lizandro López M.D. LAB BLOOD NON ADD-ON Performing Organization Address City/[facility]/ZIP Co de Phone Number [facility] [address] [place] [address] [facility] [address] [place] [address] * CK (Creatine Kinase) (10/17/2023 2:43 PM CDT) Creatine Kinase, P 163 26 - 192 U/L 10/17/2023 3:17 PM CDT [facility] Blood (Blood, Venous) 10/17/2023 2:43 PM CDT 10/17/2023 2:49 PM CDT Lizandro López M.D. LAB BLOOD ADD-ON Performing Organization Address City/[facility]/ZIP Co de Phone Number [facility] [address] [place] [address], [facility] RDWG [facility] [place] [address] [place] [phone] * Vitamin E Level (10/17/2023 2:39 PM CDT) Pathologist [facility] A-Tocopherol, Vitamin E 13.6 5.5 - 17.0 mg/L 10/19/2023 8:25 AM CDT [facility] Comment: ----ADDITIONAL INFORMATION---- This test was developed and its performance characteristics determined by [facility] in a manner consistent with CLIA requirements. This test has not been cleared or approved by the U.S. Food and Drug Administration. Blood (Blood, Venous) 10/17/2023 2:39 PM CDT 10/18/2023 11:23 AM CDT Lizandro López M.D. LAB BLOOD NON ADD-ON [facility] [place] [address] [place] [address] [facility] [address] [place] [address] documented in this encounter Visit Diagnoses Diagnosis Other Motor Neuron Disease (HCC) documented in this encounter
--- OUTSIDE RECORDS SUMMARY | 2023-11-17 08:59 | XMS_ITS | Encounter Summary ---
Author Organization [facility] Address [address] [place] [address] Care Team Providers Care Nail Making Machine Tender Name Role Phone Unavailable Primary Care Provider Unavailabl e Reason for Visit * Reason Onset Date Comments Follow-up Orders 10/18/2023 MRI in [facility] Encounter Details Date Type Department Care Team (Latest Contact Info) Description 10/18/2023 Clinical Communication Department of Neurology in [address] [phone] Lizandro López M.D. 200 [place] [phone] Follow-up Orders (MRI in [place] ) Social History Tobacco Use Types Packs/Day Years Used Date Smoking Tobacco: Never Smokeless Tobacco: Never Alcohol Use Standard Drinks/Week Comments Yes 5 (1 standard drink = 0.6 oz pur e alcohol) [facility] Utilities Answer Date Recorded In the past 12 months has [employer], gas, oil, or water [employer] threatened to shut off services in [...] your living situation today? I have a [employer] [facility] to live 10/22/2023 Sex and Gender [...]
--- OUTSIDE RECORDS SUMMARY | 2023-11-17 08:59 | XMS_ITS | Encounter Summary ---
Author Organization [facility] Address [address] [place] [address] Care Team Providers Care Information Manager Name Role Phone Unavailable Primary Care Provider Unavailabl e Reason for Referral * Outpatient (Routine) - Closed Specialty Diagnoses / Procedures Referred By Paolo t Referred To Contact Neurology Lizandro López M.D. [address] [place] [address] [facility] Region Referral ID Status Reason Start Date Expiration Date Visits Re quested Visits Authorized [id number] Closed 10/12/2023 04/12/2025 1 1 Reason for Visit * Reason Onset Date Comments Order Request 10/12/2023 F/u clinical vis it Encounter Details Date Type Department Care Team (Latest Contact Info) Description 10/12/2023 Clinical Communication Department of Neurology in [address] [phone] Lizandro López M.D. [address] [place] [phone] Order Request (F/u clinical visit ) Social [...]
--- NOTE | 2023-11-17 09:15 | CRLHL7_ITS ---
For Patients: As a result of the Century Cures Act, medical imaging exams and procedure reports are released immediately into your electronic medical record. You may view this report before your referring provider. If you have questions, please contact your health care provider. INDICATION : Right thyroid nodule. TECHNIQUE : Ultrasound-guided fine needle aspiration of thyroid nodule. Comparison : 11/07/2023 FINDINGS : PROCEDURE: After the informed consent and time-out, multiple fine needle aspirations were obtained from the thyroid nodule. Fine needle performed. 25 gauge needles were used. Lidocaine was used for local anesthesia. The preliminary cytology was adequate for interpretation. Real-time imaging was used for guidance and needle placement. Post imaging ultrasound demonstrates no immediate complication. IMPRESSION : Successful fine needle aspiration of right thyroid nodule. Dictated by Yemi Waggoner MD @ 11/18/2023 12:12:40 PM (Electronically Signed)
== END 2023-11-17 08:53 | disposition home or self-care (01) ==
LOC: US 08:53
PROVIDERS: PCP Physician Assistant Medical; Visit Provider Physician Assistant Medical
DX: E04.1 Nontoxic single thyroid nodule (principal); E07.9 Disorder of thyroid, unspecified
CPT/HCPCS: 10005; 88173

== ENCOUNTER 2023-11-24 13:30 | Outpatient (REF) | payer MEDICARE, BC, SELFPAY ==
--- OUTSIDE RECORDS SUMMARY | 2023-11-24 13:34 | XMS_ITS | Encounter Summary ---
Author Organization [place] Address [address] [place] [address]. [place] [address] Care Team Providers Care Cinder Pit Worker Name Role Phone Nicanor Thomas MD Primary Care Provider Natacha Meade [facility] Unavailable [phone] Encounter Details Date Type Department Care Team (Late st Contact Info) Description 11/23/2023 MyC Medical Advice [facility] Neurology [address] [phone] Yemi Bacon MD [address] [place] [address] Social History Tobacco Use Types Packs/Day [...] Description 01/12/2024 9:00 AM CDT Office Visit [facility] Neurology [address] [phone] Yemi Bacon MD [address] [place] [address] [place] [address] 02/14/2024 9:00 AM CRIPPLE CUTTER Virtual Visit [facility] Multiple Sclerosis [address] [phone] Yemi Bacon MD [address] [place] [address] [phone] Natacha Meade [address] [address] documented as of this encounter Visit Diagnoses Not on filedocumented in this encounter Care Teams Cinder Pit Worker Relationship Specialty Start Date End Date Nicanor Thomas MD [facility] [address] [address] PCP - General 07/13/05 Natacha Meade [facility] [address] [place] [address] [phone] Pharmacist Pharmacist 11/09/23 documented as of this encounter
--- OUTSIDE RECORDS SUMMARY | 2023-11-24 13:34 | XMS_ITS | Encounter Summary ---
Author Organization [place] Address [address] [place] [address]. [place] [address] Care Team Providers Care Physicist Light And Optics Name Role Phone Nicanor Thomas MD Primary Care Provider Natacha Meade [facility] Unavailable [phone] Encounter Details Date Type Department Care Team (Late st Contact Info) Description 11/17/[address] [facility] Neurology [address] [phone] Yemi Bacon MD [address] [place] [address] Social History Tobacco Use Types Packs/Day [...] CDT Office Visit [facility] Neurology [address] [phone] Yemi Bacon MD [address] [place] [address] [place] [address] 02/14/2024 9:00 AM NETWORK ENGINEERING ADVISOR Virtual Visit [facility] Multiple Sclerosis [address] [phone] Yemi Bacon MD [address] [place] [address] [phone] Natacha Meade [address] [address] documented as of this encounter Visit Diagnoses Not on filedocumented in this encounter Care Teams Physicist Light And Optics Relationship Specialty Start Date End Date Nicanor Thomas MD [facility] [address] [address] PCP - General 07/13/05 Natacha Meade [facility] [address] [place] [address] [phone] Pharmacist Pharmacist 11/09/23 documented as of this encounter
--- OUTSIDE RECORDS SUMMARY | 2023-11-24 13:34 | XMS_ITS | Encounter Summary ---
Author Organization [facility] Address [address] [place] [address]. [place] [address] Care Team Providers Care Channel Cementer Name Role Phone Nicanor Thomas MD Primary Care Provider Natacha Meade [facility] Unavailable [phone] Encounter Details Date Type Department Care Team (Late Contact Info) Description 11/10/2023 3:45 PM CDT Lab [facility] Lab [address] 1st [place] [phone] ALS (amyotrophic lateral sclerosis) (H) Social History [...] Description 01/12/2024 9:00 AM CDT Office Visit [facility] Neurology Clinic [address] 3rd [place] [phone] Yemi Bacon MD [address] [place] [address] [id number] [place] [address] 02/14/2024 9:00 AM LINE PRODUCER Virtual Visit [facility] Multiple Sclerosis Clinic [address] [phone] Yemi Bacon MD [address] [place] [address] [id number] [place] [address] Natacha Meade, [address] [address] Pending Results Name Type Priority Associated Diagnoses Date /Time Laboratory Miscellaneous Result Lab Routine ALS (amyotrophic lateral sclerosis) (H) 11/10/2023 3:59 PM CDT documented as of this encounter Procedures Procedure Name Priority Date/Time Associated Diagnosis Comments LABORATORY MISCELLANEOUS RESULT Routine 11/10/2023 3:59 PM CDT ALS (amyotrophic [...] Screen <1:10 <1:10 11/14/2023 10:59 PM CDT [facility] Comment: MuSK Antibody, IgG is not [...] developed and its performance characteristics determined by [facility]. It has not been cleared or approved by the U.S. Food and Drug Administration. This test was performed in a CLIA-certified laboratory and is intended for clinical purposes. Performed By: [facility] [address] [place] [address] Platen Press Operator: Fidel Cornell MD, PhD CLIA Number: [id number] Blood BLOOD SPECIMEN / Unknown Venipuncture / Unknown 11/10/2023 3:59 PM CDT 11/10/2023 3:59 PM CDT Yemi Bacon MD LAB - BLOOD ORDERABL ES [facility] [address] [place] [id number] [phone] * Other Laboratory; prevention genetics; sponsored ALS panel with [id number] and ATXN2 repeat analysis test code 51573 (Laboratory Miscellaneous Order) (11/10/2023 3:59 PM CDT) Specimen Status Specimen received. Reordered and sent to performing laboratory. Report to follow up on completion. [facility] 11/11/2023 1:24 PM CDT LABORATORY Performing Laboratory prevention genetics [facility] 11/11/2023 1:24 PM CDT [facility] - CORE LAB Test Name sponsored ALS panel with Q7irx29 and ATXN2 repeat analysis test code 85625 [facility] 11/11/2023 1:24 PM CDT [facility] - CORE LAB Blood STRUCTURE OF RIGHT UPPER LIMB / Unknown Venipuncture / Unknown 11/10/2023 3:59 PM CDT 11/10/2023 3:59 PM CDT Yemi Bacon MD LAB - BLOOD ORDERABL ES LABORATORY [facility] [place] Core Lab [address] [facility], Room [address] [place] [address], [facility]ORAT[facility] - CORE LAB [facility] [place] - [address] [place] [address] * Hepatic panel (11/10/2023 3:59 PM CDT) Protein Total 7.2 6.4 - 8.3 g/dL 11/10/2023 4:26 PM CDT [facility] - CORE LAB Albumin 4.4 3.5 - 5.2 g/dL 11/10/2023 4:26 PM CDT [facility] - CORE LAB Bilirubin Total 0.3 <=1.2 mg/dL 11/10/2023 4:26 PM CDT [facility] - CORE LAB Alkaline Phosphatase 70 40 - 150 U/L 11/10/2023 4:26 PM CDT [facility] - CORE LAB AST 23 0 - 45 U/L 11/10/2023 4:26 PM CDT [facility] - CORE LAB ALT 14 0 - 50 U/L 11/10/2023 4:26 PM CDT [facility] - CORE LAB Bilirubin Direct <0.20 0.00 - 0.30 mg/dL 11/10/2023 4:26 PM CDT [facility] - CORE LAB Blood STRUCTURE OF RIGHT UPPER LIMB / Unknown Venipuncture / Unknown 11/10/2023 3:59 PM CDT 11/10/2023 3:59 PM CDT Yemi Bacon MD LAB - BLOOD ORDERABL ES [facility] - CORE LAB [facility] - [address] [place] [address] documented in this encounter Visit Diagnoses Diagnosis ALS (amyotrophic lateral sclerosis) (H) Amyotrophic lateral sclerosis documented in this encounter Care Teams Channel Cementer Relationship Specialty Start Date End Date Nicanor Thomas MD [facility] [address] [place] [address] PCP - General 07/13/05 Natacha Meade RPH [address] [place] [address] Pharmacist Pharmacist 11/09/23 documented as of this encounter
--- OUTSIDE RECORDS SUMMARY | 2023-11-24 13:34 | XMS_ITS | Encounter Summary ---
Author Organization [facility] Address [address] [place] [address]. [place] [address] Care Team Providers Care Middleware Architect Name Role Phone Nicanor Thomas MD Primary Care Provider Natacha Meade [facility] Unavailable [phone] Encounter Details Date Type Department Care Team (Late st Contact Info) Description 11/23/2023 MyC Medical Advice [facility] Neurology [address] [phone] Yemi Bacon MD [address] [place] [address] Social History Tobacco Use Types Packs/Day [...] Description 01/12/2024 9:00 AM CDT Office Visit [facility] Neurology [address] [phone] Yemi Bacon MD [address] [place] [address] [place] [address] 02/14/2024 9:00 AM CANVAS WORKER Virtual Visit [facility] Multiple Sclerosis [address] [phone] Yemi Bacon MD [address] [place] [address] [phone] Natacha Meade [address] [address] documented as of this encounter Visit Diagnoses Not on filedocumented in this encounter Care Teams Middleware Architect Relationship Specialty Start Date End Date Nicanor Thomas MD [facility] [address] [address] PCP - General 07/13/05 Natacha Meade [facility] [address] [place] [address] [phone] Pharmacist Pharmacist 11/09/23 documented as of this encounter
--- OUTSIDE RECORDS SUMMARY | 2023-11-24 13:34 | XMS_ITS | Referral Summary ---
Author Organization [place] Address [address] [place] [address]. [address] Care Team Providers Care High School Social Science Teacher Name Role Phone Felipe Thomas MD Primary Care Provider Natacha Meade [facility] Unavailable [phone] Encounters Date Type Department Care Team Description 11/23/2023 MyC Medical Advice [facility] Neurology [address] [phone] Yemi Bacon MD 11/23/2023 MyC Medical Advice [facility] Neurology [address] [phone] Yemi Bacon MD 11/23/2023 MyC Medical Advice [facility] Neurology [address] [phone] Yemi Bacon MD 11/23/2023 MyC Medical Advice [facility] Neurology [address] [phone] Yemi Bacon MD 11/17/2023 MyC Medical Advice [facility] Neurology [address] [phone] Irma Batista LPN 11/17/2023 MyC Medical Advice [facility] Neurology [address] [phone] Yemi Bacon MD 11/14/2023 Telephone [facility] Neurology [address] [phone] Yemi Bacon MD Prior Auth - Medication (dextromethorphan-quiNI Dine (NUEDEXTA) 20-10 MG capsule -EPA DENIED) 11/11/2023 [facility] Medical Advice [facility] Neurology [address] [phone] Yemi Bacon MD 11/10/2023 [facility] Medical Advice [facility] Neurology [address] [phone] Yemi Bacon MD 11/10/2023 Allied Health/Nurse Visit [facility] Neurology [address] [phone] Yemi Bacon MD ALS (amyotrophic lateral sclerosis) (H) (Primary Dx) 11/10/2023 3:45 PM CDT Lab [facility] Lab [address] [phone] ALS (amyotrophic lateral sclerosis) (H) 11/10/2023 Travel 11/10/2023 2:15 PM CDT Therapy Visit [facility] Rehabilitation Services [address] [phone] Katerina Cervantes, MAIL EXAMINER ALS (amyotrophic lateral sclerosis) (H) (Primary Dx); Dysarthria; Oropharyngeal dysphagia 11/10/2023 Telephone [facility] Neurology [address] [phone] Yemi Bacon MD Prior Auth - Medication (Radicava ORS Starter Kit 105MG/5ML suspension (PA PENDING)) 11/10/2023 Telephone [facility] Neurology [address] [phone] Yemi Bacon MD Medication Request (Nuedexta) 11/10/2023 7:30 AM CDT Virtual Visit [facility] [address] [facility] [address],[place] [phone] Lisset Quiros, Encounter for nonprocreative genetic counseling (Primary Dx); ALS (amyotrophic lateral sclerosis) (H) 11/10/2023 1:00 PM CDT Office Visit [facility] Neurology Clinic [address] [phone] Yemi Bacon MD ALS (amyotrophic lateral sclerosis) (H) (Primary Dx) 11/09/2023 Refill [facility] Multiple Sclerosis [address] [phone] Natacha Meade [facility] Refill Request 11/09/2023 MyC Medical Advice [facility] Multiple Sclerosis [address] [phone] Natacha Meaed RPH 11/09/2023 9:00 AM CDT Virtual Visit [facility] Multiple Sclerosis [address] [phone] Yemi Bacon MD [place], Sara Luis Angel ALS (amyotrophic lateral sclerosis) (H) (Primary Dx); Anxiety; Hypothyroidism; Seasonal allergic rhinitis, unspecified trigger; Vasomotor symptoms due to menopause 11/08/2023 Orders Only [facility] Neurology [address] [phone] Irma Batista LPN ALS (amyotrophic lateral sclerosis) (H) (Primary Dx) 11/02/2023 Travel 11/02/2023 1:30 PM CDT Office Visit [facility] Neurology [address] [phone] Yemi Bacon MD ALS (amyotrophic lateral sclerosis) (H) (Primary Dx); Acquired amyotrophic lateral sclerosis (H) 11/02/2023 1:00 PM CDT Office Visit [facility] Pulmonary Function Testing [address] [phone] Muscle weakness (generalized) 10/28/2023 Orders Only [facility] Neurology Clinic [address] [phone] Irma Batista LPN Muscle weakness (generalized) (Primary Dx) 10/28/2023 Telephone [facility] Neurology Clinic [address] [phone] None Referral (ALS Multidisciplinary Clinic/) [...] Next Due COVID-19 MONOVALENT 12+ (Pfizer) 04/15/2020,03/05 [id number] Novel Flu 02/10/2009 Hepatitis A (ADULT 19+) [...] Visit [facility] Neurology Clinic [address] 3rd Floor [phone] Yemi Bacon MD [address] [place] [address] [phone] 02/14/2024 9:00 AM CLINICAL DOCUMENT IMPROVEMENT EDUCATOR Virtual Visit [facility] Multiple Sclerosis Clinic [address] [phone] Yemi Bacon MD [address] [place] [address] Natacha Meade, [address] [phone] Procedures Procedure Name Priority Date/Time Associated Diagnosis [...] PM CDT ALS (amyotrophic lateral sclerosis) (H) CO RESPIRATORY FLOW VOLUME LOOP Routine 11/02/2023 1:02 PM CDT Muscle weakness (generalized) CO MIP/MEP Routine 11/02/2023 1:02 PM CDT Muscle [...] Laboratory; prevention genetics; sponsored ALS panel with [id number] and ATXN2 repeat analysis test code 55931 (Laboratory Miscellaneous Order) (11/10/2023 3:59 PM CDT) Specimen Status Specimen received. Reordered and sent to performing laboratory. Report to follow up on completion. [facility] 11/11/2023 1:24 PM CDT LABORATORY Performing Laboratory prevention genetics [facility] 11/11/2023 1:24 PM CDT [facility] - [facility]ORE LAB Test Name sponsored ALS panel with P2mkp11 and ATXN2 repeat analysis test code 04167 [facility] 11/11/2023 1:24 PM CDT [facility] - CORE LAB Blood STRUCTURE OF RIGHT UPPER LIMB / Unknown Venipuncture / Unknown 11/10/2023 3:59 PM CDT 11/10/2023 3:59 PM CDT Yemi Bacon MD LAB - BLOOD ORDERABL ES LABORATORY [facility] [place] Core Lab [address] [facility] J Building, Room 3-580 [phone] - CORE LAB [facility] [place] [address] [facility] 1st Floor Lab Core Lab [address] * Muscle-Specific Kinase Antibody Screen with Reflex to Titer (11/10/2023 3:59 PM CDT) Muscle-Specific Kinase Antibody Screen <1:10 <1:10 11/14/2023 10:59 PM CDT [facility] Comment: MuSK Antibody, IgG is not detected. [...] developed and its performance characteristics determined by [facility]. It has not been cleared or approved by the U.S. Food and Drug Administration. This test was performed in a CLIA-certified laboratory and is intended for clinical purposes. Performed By: [facility] [address] [place] [address] Tag And Label Cutter: Fidel Cornell MD, PhD CLIA Number: [id number] Blood BLOOD SPECIMEN / Unknown Venipuncture / Unknown 11/10/2023 3:59 PM CDT 11/10/2023 3:59 PM CDT Yemi Bacon MD LAB - BLOOD ORDERABL ES [address] [address], [facility] [phone] * Hepatic panel (11/10/2023 3:59 PM CDT) Protein Total 7.2 6.4 - 8.3 g/dL 11/10/2023 4:26 PM CDT [facility] - [facility]ORE LAB Albumin 4.4 3.5 - 5.2 g/dL 11/10/2023 4:26 PM CDT [facility] - CORE LAB Bilirubin Total 0.3 <=1.2 mg/dL 11/10/2023 4:26 PM CDT [facility] - CORE LAB Alkaline Phosphatase 70 40 - 150 U/L 11/10/2023 4:26 PM CDT [facility] - CORE LAB AST 23 0 - 45 U/L 11/10/2023 4:26 PM CDT [facility] - CORE LAB ALT 14 0 - 50 U/L 11/10/2023 4:26 PM CDT [facility] - CORE LAB Bilirubin Direct <0.20 0.00 - 0.30 mg/dL 11/10/2023 4:26 PM CDT [facility] - CORE LAB Blood STRUCTURE OF RIGHT UPPER LIMB / Unknown Venipuncture / Unknown 11/10/2023 3:59 PM CDT 11/10/2023 3:59 PM CDT Yemi Bacon MD LAB - BLOOD ORDERABL ES [facility] - CORE LAB [facility] - [address] Floor Lab Core Lab [address] * Pulmonary Function Test (11/02/2023 12:50 PM CDT) FVC-Pred 3.14 L [facility] PFT FVC-Pre 3.29 L [facility]REE[facility] PFT FVC-%Pred-Pre 104 % [facility] FEV1-Pre 2.67 L [facility]REEZE PFT FEV1-%Pred-Pre 107 % [facility]ZE PFT [id number] 80 % [facility]REEZE PFT [id number] 81 % BREEZE PFT FEFMax-Pred 6.63 L/sec BREEZE PFT FEFMax-Pre 5.47 L/sec BREEZE PFT FEFMax-%Pred-Pr e 82 % BREEZE PFT [id number] 2.27 L/sec BREEZE PFT [id number] 2.74 L/sec BREEZE PFT [id number]-%Pred-P re 120 % [facility]REEZE PFT ExpTime-Pre 5.71 sec BREEZE PFT FIFMax-Pre 2.04 L/sec [facility]REEZE PFT MEP-Pre 70 cmH2O BREEZE PFT MIP-Pre -50 cmH2O BREEZE PFT [id number] 81 % BREEZE PFT [id number]-Gmg 82 % [facility] 11/02/2023 12:5 0 PM CDT Narrative [facility] - 11/03/2023 6:37 PM CDT The FVC, FEV1, FEV1/FVC ratio and KIY94-90% are within normal limits. IMPRESSION: Normal Spirometry. MIP and MEP are reduced. ?This interpretation has been electronically signed: ??RIOS CHRISTIANSON 11/03/2023 ??06:09:20 PM? Yemi Bacon MD PFT ORDERABLES Performing Organization Address [facility] de Phone Number [facility] * MAMMOGRAM, SCREENING (01/02/2007 3:39 PM [...] CDT) Glucose 88 60 - 110 mg/dL [facility] 08/03/2005 9:11 AM CDT 08/03/2005 9:13 AM CDT Felipe Thomas MD LABORATORY Performing Organization Address [facility] de Phone Number [facility] * (ABNORMAL) A.M.A. LIPID PANEL (08/03/2005 9:11 AM CDT) Cholesterol 147 0 - 200 mg/dL [facility] Comment: LDL Cholesterol is the primary guide to therapy: LDL-cholesterol goal in high risk patients is <100 mg/dL and in very high risk patients is <70 mg/dL. The NCEP recommends further evaluation of: patients with cholesterol <200 mg/dL if additional risk factors are present, cholesterol >240 mg/dL, triglycerides >150 mg/dL, or HDL <40 mg/dL. Triglycerides 73 0 - 150 mg/dL [facility] HDL Cholesterol 45(L) 50 - 110 mg/dL [facility] LDL Cholesterol Calculated 87 0 - 129 mg/dL [facility] Comment: LDL Cholesterol is the primary guide to therapy: LDL-cholesterol goal in high risk patients is <100 mg/dL and in very high risk patients is <70 mg/dL. VLDL-Cholesterol 15 0 - 30 mg/dL [facility] Cholesterol/HDL Ratio 3.2 0.0 - 5.0 [facility] 08/03/2005 9:11 AM CDT 08/03/2005 9:13 AM CDT Felipe Thomas MD LABORATORY Performing Organization Address [facility] Co de Phone Number [facility] * TSH W/FREE T4 REFLEX (07/20/2005 11:40 AM CDT) TSH 3.64 0.4 - 5.0 mU/L [facility] 07/20/2005 11:4 0 AM CDT 07/20/2005 11:42 AM CDT Felipe Thomas MD LABORATORY Performing Organization Address [facility] de Phone Number [facility] * A THIN LAYER PAP SCREEN (07/20/2005 12:00 AM CDT) PAP VALENTINA Mosqueda Report Patient Name: MAGALY HINOJOSA MR#: [id number] Specimen #: [id number] Collected: 07/20/2005 Received: 07/21/2005 Reported: 07/22/2005 08:34 [...] HUBER Finn (ASCP) Processed and screened at [facility], [facility] CLINICAL HISTORY: Irregular Bleeding Other: spotting, Previous normal pap Date of Last Pap: Other: history previous abnormal 8 years ago/colpo normal paps since that time), TESTING LAB LOCATION: [facility] [address] [place] ??[address] COLLECTION SITE: Client: ??[facility] Location: [facility] (R) COPATH 07/20/2005 07/21/2005 10: 18 AM CDT Felipe Thomas MD LABORATORY Performing Organization Address City/State/[facility] Co de Phone Number COPATH from Last 3 Months or Most Recently Relevant to Health Maintenance Care Teams High School Social Science Teacher Relationship Specialty Start Date End Date Felipe Thomas MD [facility] [address] [place] [address] PCP - General 07/13/05 Natacha Meade RPH [address] [place] [address] Pharmacist Pharmacist 11/09/23
--- OUTSIDE RECORDS SUMMARY | 2023-11-24 13:34 | XMS_ITS | Encounter Summary ---
Author Organization [place] Address [address] [place] [address]. [place] [address] Care Team Providers Care Reinforcing Rod Layer Name Role Phone Nicanor Thomas MD Primary Care Provider Natacha Meade [facility] Unavailable [phone] Encounter Details Date Type Department Care Team (Late st Contact Info) Description 11/11/2023 MyC Medical Advice [facility] Neurology [address] [phone] Yemi Bacon MD [address] [place] [address] Social History Tobacco Use Types Packs/Day [...] Description 01/12/2024 9:00 AM CDT Office Visit [facility] Neurology [address] [phone] Yemi Bacon MD [address] [place] [address] [place] [address] 02/14/2024 9:00 AM LOCKSTITCH COLLAR SETTER Virtual Visit [facility] Multiple Sclerosis [address] [phone] Yemi Bacon MD [address] [place] [address] 835855 Natacha Meade [address] [address] documented as of this encounter Visit Diagnoses Not on filedocumented in this encounter Care Teams Reinforcing Rod Layer Relationship Specialty Start Date End Date Nicanor Thomas MD [facility] [address] [address] PCP - General 07/13/05 Natacha Meade [facility] [address] [place] [address] [phone] Pharmacist Pharmacist 11/09/23 documented as of this encounter
--- OUTSIDE RECORDS SUMMARY | 2023-11-24 13:34 | XMS_ITS | Encounter Summary ---
Author Organization [place] Address [address] [place] [address]. [place] [address] Care Team Providers Care Receiving Barn Custodian Name Role Phone Nicanor Thomas MD Primary Care Provider Natacha Meade [facility] Unavailable [phone] Reason for Visit * Reason Onset Date Comments Prior Auth - Medication 11/14/2023 dextrome thorphan-quiNIDine (NUEDEXTA) 20-10 MG capsule -EPA DENIED Encounter Details Date Type Department Care Team (Late st Contact Info) Description 11/14/2023 Telephone [facility] Clinic [address] [place] [address] Yemi Bacon MD [address] [place] [address] [id number] [place] [address] Prior Auth - Medication (dextromethorphan-quiNI [...] encounter Miscellaneous Notes * Telephone Encounter - Gabby Gutierrez - 11/24/2023 12:28 PM CDT Images from the original note were not included. Re-initiated authorization with chart notes * Telephone Encounter - Hailey Multani - 11/17/2023 10:17 AM CDT [facility] Phone Message May a detailed message be left on voicemail: yes Reason for Call: Irma is returning a missed call from Keli, Action Taken: Message routed to: [facility] neurology Travel Screening: Not Applicable Date of Service: * Telephone Encounter - Gracia Doherty - 11/16/2023 10:39 AM CDT Images from the original note were not included. PRIOR AUTHORIZATION DENIED Medication: NUEDEXTA 20-10 MG PO CAPS Insurance Company: [employer] [place] - Denial Date: 11/12/2023 Denial Reason(s): Needs to try/fail Tricyclic Antidepressants Appeal Information: Patient Notified: No documented in this encounter Plan of Treatment Upcoming Encounters Date Type Department Care Team (Late st Contact Info) Description 01/12/2024 9:00 AM CDT Office Visit [facility] [address] 3rd [place] [address] Yemi Bacon MD [address] [place] [address] [phone] 02/14/2024 9:00 AM LOG HANDLER Virtual Visit [facility] Multiple Sclerosis [address] [phone] Yemi Bacon MD [address] [place] [address] [phone] Natacha Meade RPH [address] [place] [address] documented as of this encounter Visit Diagnoses Not on filedocumented in this encounter Care Teams Receiving Barn Custodian Relationship Specialty Start Date End Date Nicanor Thomas MD [facility] [address] [address] PCP - General 07/13/05 Natacha Meade RPH [address] [place] [address] [phone] Pharmacist Pharmacist 11/09/23 documented as of this encounter
--- OUTSIDE RECORDS SUMMARY | 2023-11-24 13:34 | XMS_ITS | Encounter Summary ---
Author Organization [place] Address [address] [place] [address]. [place] [address] Care Team Providers Care Store Detective Name Role Phone Nicanor Thomas MD Primary Care Provider Natacha Meade [facility] Unavailable [phone] Encounter Details Date Type Department Care Team (Late st Contact Info) Description 11/10/2023 Allied Health/Nurse Visit [facility] Neurology Clinic [address] 3rd [place] [address] Yemi aBcon MD [address] [place] [address] [id number] [place] [address] ALS (amyotrophic lateral sclerosis) (H) [...] motor neuron disorders PI: Yemi Bacon MD Damaged Freight Inspector: [email or web address] [email or web address] documented in this encounter Plan of Treatment Upcoming Encounters Date Type Department Care Team (Late st Contact Info) Description 01/12/2024 9:00 AM CDT Office Visit [facility] [address] [place] [phone] Yemi Bacon MD [address] [place] [address] 02/14/2024 9:00 AM DYE WEIGHER HELPER Virtual Visit [facility] Multiple Sclerosis [address] [phone] Yemi Bacon MD [address] [place] [address] [address] [address] documented as of this encounter Visit Diagnoses Diagnosis ALS (amyotrophic lateral sclerosis) (H)- Primary Amyotrophic lateral sclerosis documented in this encounter Care Teams Store Detective Relationship Specialty Start Date End Date Nicanor Thomas MD [facility] 8080 [facility] [address] [address] PCP - General 07/13/05 Natacha Meade [facility] [address] [place] [address] Pharmacist Pharmacist 11/09/23 documented as of this encounter
--- OUTSIDE RECORDS SUMMARY | 2023-11-24 13:34 | XMS_ITS | Encounter Summary ---
Author Organization [place] Address [address] [place] [address]. [place] [address] Care Team Providers Care Security Officer Supervisor Name Role Phone Nicanor Thomas MD Primary Care Provider Natacha Meade [facility] Unavailable [phone] Encounter Details Date Type Department Care Team (Late st Contact Info) Description 11/10/2023 MyC Medical Advice [facility] Neurology [address] [phone] Yemi Bacon MD [address] [place] [address] Social History Tobacco Use Types Packs/Day [...] Description 01/12/2024 9:00 AM CDT Office Visit [facility] Neurology [address] [phone] Yemi Bacon MD [address] [place] [address] [place] [address] 02/14/2024 9:00 AM CUSTODIAN ATHLETIC EQUIPMENT Virtual Visit [facility] Multiple Sclerosis [address] [phone] Yemi Bacon MD [address] [place] [phone] Natacha Meade [address] [address] documented as of this encounter Visit Diagnoses Not on filedocumented in this encounter Care Teams Security Officer Supervisor Relationship Specialty Start Date End Date Nicanor Thomas MD [facility] [address] [address] PCP - General 07/13/05 Natacha Meade [facility] [address] [place] [address] [phone] Pharmacist Pharmacist 11/09/23 documented as of this encounter
--- OUTSIDE RECORDS SUMMARY | 2023-11-24 13:34 | XMS_ITS | Clinical Summary ---
Author Organization [place] Address [address] [place] [address]. [place] [address] Care Team Providers Care Auto Transmission Mechanic Name Role Phone Felipe Thomas MD Primary Care Provider Natacha Meade [facility] Unavailable [phone] Allergies Active Allergy Reactions Criticality Noted [...] Care Team Description 11/23/[address] [facility] Neurology [address] [phone] Yemi Bacon MD 11/23/[address] [facility] Neurology [address] [phone] Yemi Bacon MD 11/23/[address] [facility] Neurology [address] [phone] Yemi Bacon MD 11/23/[address] [facility] Neurology [address] [phone] Yemi Bacon MD 11/17/[address] [facility] Neurology [address] [phone] Irma Batista LPN 11/17/[address] [facility] Neurology [address] [phone] Yemi Bacon MD 11/14/[address] [facility] Neurology [address] [phone] Yemi Bacon MD Prior Auth - Medication (dextromethorphan-quiNI Dine (NUEDEXTA) 20-10 MG capsule -EPA DENIED) 11/11/[address] [facility] Neurology [address] [phone] Yemi Bacon MD 11/10/2023 3:[address] [facility] Lab [address] [phone] ALS (amyotrophic lateral sclerosis) (H) 11/10/2023 2:15 PM CDT Therapy Visit [facility] Rehabilitation Services [address] [phone] Katerina Cervantes, SAP ARCHITECT ALS (amyotrophic lateral sclerosis) (H) (Primary Dx); Dysarthria; Oropharyngeal dysphagia 11/10/2023 1:00 PM CDT Office Visit [facility] Neurology [address] [phone] Yemi Bacon MD ALS (amyotrophic lateral sclerosis) (H) (Primary Dx) 11/10/2023 7:30 AM CDT Virtual Visit [facility] 12th [facility] [phone] Lisset Quiros, Encounter for nonprocreative genetic counseling (Primary Dx); ALS (amyotrophic lateral sclerosis) (H) 11/10/[address] [facility] Neurology [address] [phone] Yemi Bacon MD 11/10/2023 Allied Health/Nurse Visit [facility] Neurology [address] [phone] Yemi Bacon MD ALS (amyotrophic lateral sclerosis) (H) (Primary Dx) 11/10/2023 Travel 11/10/[address] [facility] Neurology [address] [phone] Yemi Bacon MD Prior Auth - Medication (Radicava ORS Starter Kit 105MG/5ML suspension (PA PENDING)) 11/10/[address] [facility] Neurology [address] [phone] Yemi Bacon MD Medication Request (Nuedexta) 11/09/2023 9:00 AM CDT Virtual Visit [facility] Multiple Sclerosis [address] [phone] Yemi Bacon MD Puchalla, Sara, RPH ALS (amyotrophic lateral sclerosis) (H) (Primary Dx); Anxiety; Hypothyroidism; Seasonal allergic rhinitis, unspecified trigger; Vasomotor symptoms due to menopause 11/09/[address] [facility] Multiple Sclerosis [address] [phone] Natacha Meade RPH Refill Request 11/09/[address] [facility] Multiple Sclerosis [address] [phone] Natacha Meade RPH 11/08/[address] [facility] Neurology [address] [phone] Irma Batista LPN ALS (amyotrophic lateral sclerosis) (H) (Primary Dx) 11/02/2023 1:30 PM CDT Office Visit [facility] Neurology [address] [phone] Yemi Bacon MD ALS (amyotrophic lateral sclerosis) (H) (Primary Dx); Acquired amyotrophic lateral sclerosis (H) 11/02/2023 1:00 PM CDT Office Visit [facility] Pulmonary Function Testing [address] [phone] Muscle weakness (generalized) 11/02/2023 Travel 10/28/[address] [facility] Neurology [address] [phone] Irma Batista LPN Muscle weakness (generalized) (Primary Dx) 10/28/[address] [facility] Neurology [address] [phone] None Referral (ALS Multidisciplinary Clinic/) 10/27/2023 Transcribe Orders GENERIC EXTERNAL DATA DEPARTMENT Provider, Generic External Data Acquired amyotrophic lateral sclerosis (H) (Primary Dx) from Last 3 Months Immunizations Name Administration Dates Next Due COVID-19 MONOVALENT 12+ (Pfizer) 04/15/2020,03/05 [id number] Novel Flu 02/10/2009 Hepatitis A (ADULT 19+) 11/15/2022,03/22/2014 Influenza (intradermal) 01/30/2014 Influenza Vaccine 18-64 (Flublok) 01/26/2022,01/2019 Influenza Vaccine >6 months,quad, PF 12/2016,01/21/2016,01/08/2015,2008 Influenza, seasonal, injectable, PF 01/03,01/11/2018,01/02/2013,2011,01/12/2011,01/07/2010 TDAP (Adacel,Boostrix) 12/20/2017 Typhoid IM 11/15/2022,03/22/2014 Zoster recombinant adjuvante d (SHINGRIX) 08/01/2023,01/06/2023 Family History Medical History Relation Comments C.A.D. [...] 01/12/2024 9:00 AM CDT Office Visit [facility] Neurology Clinic [address] 3rd [place] [phone] Yemi Bacon MD [address] [place] [address] [phone] 02/14/2024 9:00 AM SECURITIES SUPERVISOR Virtual Visit [facility] Multiple Sclerosis Clinic [address] [phone] Yemi Bacon MD [address] [place] [address] [phone] [address] [address] Health Maintenance Due Date Last Done Comments [...] PM CDT ALS (amyotrophic lateral sclerosis) (H) NE RESPIRATORY FLOW VOLUME LOOP Routine 11/02/2023 1:02 PM CDT Muscle weakness (generalized) NE MIP/MEP Routine 11/02/2023 1:02 PM CDT Muscle [...] Laboratory; prevention genetics; sponsored ALS panel with F2tje29 and ATXN2 repeat analysis test code 60110 (Laboratory Miscellaneous Order) (11/10/2023 3:59 PM CDT) Specimen Status Specimen received. Reordered and sent to performing laboratory. Report to follow up on completion. [facility] 11/11/2023 1:24 PM CDT LABORATORY Performing Laboratory prevention genetics [facility] 11/11/2023 1:24 PM CDT [facility] LABORATORY - CORE LAB Test Name sponsored ALS panel with [id number] and ATXN2 repeat analysis test code 81448 [facility] 11/11/2023 1:24 PM CDT [facility] LABORATORY - CORE LAB Blood STRUCTURE OF RIGHT UPPER LIMB / Unknown Venipuncture / Unknown 11/10/2023 3:59 PM CDT 11/10/2023 3:59 PM CDT Yemi Bacon MD LAB - BLOOD ORDERABL ES LABORATORY [facility] Core Lab [address] [facility] [address], Room 3-[address] [place] [address], [facility] LABORATORY - CORE LAB [facility] [place] [facility] [place] [address] [facility] 1st [place] [address] * Muscle-Specific Kinase Antibody Screen with Reflex to Titer (11/10/2023 3:59 PM CDT) Pathologist [facility] Muscle-Specific Kinase Antibody Screen <1:10 <1:10 11/14/2023 10:59 PM CDT [facility] Comment: MuSK Antibody, IgG is not detected. [...] developed and its performance characteristics determined by [facility]. It has not been cleared or approved by the U.S. Food and Drug Administration. This test was performed in a CLIA-certified laboratory and is intended for clinical purposes. Performed By: [facility] [address] [place] [address] Chief Architect: Fidel Cornell MD, PhD CLIA Number: [id number] Blood BLOOD SPECIMEN / Unknown Venipuncture / Unknown 11/10/2023 3:59 PM CDT 11/10/2023 3:59 PM CDT Yemi Bacon MD LAB - BLOOD ORDERABL ES [facility] [address] [place] [phone], [facility] [phone] * Hepatic panel (11/10/2023 3:59 PM CDT) [facility] [address] Protein Total 7.2 6.4 - 8.3 g/dL 11/10/2023 4:26 PM CDT [facility] LABORAT[facility] - CORE LAB Albumin 4.4 3.5 - 5.2 g/dL 11/10/2023 4:26 PM CDT [facility] - CORE LAB Bilirubin Total 0.3 <=1.2 mg/dL 11/10/2023 4:26 PM CDT [facility] - CORE LAB Alkaline Phosphatase 70 40 - 150 U/L 11/10/2023 4:26 PM CDT [facility] - CORE LAB AST 23 0 - 45 U/L 11/10/2023 4:26 PM CDT [facility] - CORE LAB ALT 14 0 - 50 U/L 11/10/2023 4:26 PM CDT [facility] - CORE LAB Bilirubin Direct <0.20 0.00 - 0.30 mg/dL 11/10/2023 4:26 PM CDT [facility]OR[facility] - CORE LAB Blood STRUCTURE OF RIGHT UPPER LIMB / Unknown Venipuncture / Unknown 11/10/2023 3:59 PM CDT 11/10/2023 3:59 PM CDT Yemi Bacon MD LAB - BLOOD ORDERABL ES [facility] LABORAT[facility] - CORE LAB [facility] - [address] 1st [place] [address] * Pulmonary Function Test (11/02/2023 12:50 PM CDT) FVC-Pred 3.14 L [facility] PFT FVC-Pre 3.29 L [facility] PFT FVC-%Pred-Pre 104 % [facility] PFT FEV1-Pre 2.67 L [facility] PFT FEV1-%Pred-Pre 107 % [facility] PFT [id number] 80 % [facility] PFT [id number]-Pad 81 % [facility] PFT FEFMax-Pred 6.63 L/sec [facility] PFT FEFMax-Pre 5.47 L/sec [facility]ZE PFT FEFMax-%Pred-Pr e 82 % [facility] PFT [id number] 2.27 L/sec [facility] PFT [id number] 2.74 L/sec [facility]REE[facility] PFT [id number]-%Pred-P re 120 % [facility] PFT ExpTime-Pre 5.71 sec [facility]REEZE PFT FIFMax-Pre 2.04 L/sec [facility] PFT MEP-Pre 70 cmH2O [facility] PFT MIP-Pre -50 cmH2O [facility] PFT [id number] 81 % [facility] PFT [id number]-Omo 82 % [facility] PFT 11/02/2023 12:5 0 PM CDT Narrative [facility] PFT - 11/03/2023 6:37 PM CDT The FVC, FEV1, FEV1/FVC ratio and WEN56-89% are within normal limits. IMPRESSION: Normal Spirometry. MIP and MEP are reduced. ?This interpretation has been electronically signed: ??RIOS CHRISTIANSON 11/03/2023 ??06:09:20 PM? Yemi Bacon MD PFT ORDERABLES Performing Organization Address [facility] Co de Phone Number [facility] PFT * MAMMOGRAM, SCREENING (01/02/2007 3:39 PM [...] CDT) Glucose 88 60 - 110 mg/dL [facility] 08/03/2005 9:11 AM CDT 08/03/2005 9:13 AM CDT Felipe Thomas MD LABORATORY Performing Organization Address [facility]/ZIP Co de Phone Number [facility] * (ABNORMAL) A.M.A. LIPID PANEL (08/03/2005 9:11 AM CDT) Cholesterol 147 0 - 200 mg/dL [facility] Comment: LDL Cholesterol is the primary guide to therapy: LDL-cholesterol goal in high risk patients is <100 mg/dL and in very high risk patients is <70 mg/dL. The NCEP recommends further evaluation of: patients with cholesterol <200 mg/dL if additional risk factors are present, cholesterol >240 mg/dL, triglycerides >150 mg/dL, or HDL <40 mg/dL. Triglycerides 73 0 - 150 mg/dL [facility] HDL Cholesterol 45(L) 50 - 110 mg/dL [facility] LDL Cholesterol Calculated 87 0 - 129 mg/dL [facility] Comment: LDL Cholesterol is the primary guide to therapy: LDL-cholesterol goal in high risk patients is <100 mg/dL and in very high risk patients is <70 mg/dL. VLDL-Cholesterol 15 0 - 30 mg/dL [facility] Cholesterol/HDL Ratio 3.2 0.0 - 5.0 [facility] 08/03/2005 9:11 AM CDT 08/03/2005 9:13 AM CDT Felipe Thomas MD LABORATORY Performing Organization Address City/[facility]/ZIP Co de Phone Number [facility] * TSH W/FREE T4 REFLEX (07/20/2005 11:40 AM CDT) TSH 3.64 0.4 - 5.0 mU/L [facility] 07/20/2005 11:4 0 AM CDT 07/20/2005 11:42 AM CDT Felipe Thomas MD LABORATORY Performing Organization Address City/[facility]/ZIP Co de Phone Number [facility] * A THIN LAYER PAP SCREEN (07/20/2005 12:00 AM CDT) PAP VALENTINA Mosqueda Report Patient Name: MAGALY HINOJOSA MR#: [id number] Specimen #: [id number] Collected: 07/20/2005 Received: 07/21/2005 Reported: 07/22/2005 08:34 [...] HUBER Finn (ASCP) Processed and screened at [facility] CLINICAL HISTORY: Irregular Bleeding Other: spotting, Previous normal pap Date of Last Pap: Other: history previous abnormal 8 years ago/colpo normal paps since that time), TESTING LAB LOCATION: [address] ??[phone] COLLECTION SITE: Client: ??[facility] Location: [facility] (R) COPATH 07/20/2005 07/21/2005 10: 18 AM CDT Felipe Thomas MD LABORATORY COPATH from Last 3 Months or Most Recently Relevant to Health Maintenance Care Teams Auto Transmission Mechanic Relationship Specialty Start Date End Date Felipe Thomas MD [facility] [address] [facility] [address] [place] [address] PCP - General 07/13/05 Natcaha Meade RPH [address] [place] [address] Pharmacist Pharmacist 11/09/23
--- OUTSIDE RECORDS SUMMARY | 2023-11-24 13:34 | XMS_ITS | Encounter Summary ---
Author Organization [facility] Address [address] [place] [address]. [place] [address] Care Team Providers Care It Security Consultant Name Role Phone Nicanor Thomas MD Primary Care Provider Natacha Meade [facility] Unavailable [phone] Encounter Details Date Type Department Care Team (Late st Contact Info) Description 11/23/2023 MyC Medical Advice [facility] Neurology [address] [phone] Yemi Bacon MD [address] [place] [address] Social History Tobacco Use Types Packs/Day [...] Description 01/12/2024 9:00 AM CDT Office Visit [facility] Neurology [address] [phone] Yemi Bacon MD [address] [place] [address] [place] [address] 02/14/2024 9:00 AM BIRTHING NURSE Virtual Visit [facility] Multiple Sclerosis [address] [phone] Yemi Bacon MD [address] [place] [address] Natacha Meade [address] [address] documented as of this encounter Visit Diagnoses Not on filedocumented in this encounter Care Teams It Security Consultant Relationship Specialty Start Date End Date Nicanor Thomas MD [facility] [address] [address] PCP - General 07/13/05 Natacha Meade [facility] [address] [place] [address] [phone] Pharmacist Pharmacist 11/09/23 documented as of this encounter
--- OUTSIDE RECORDS SUMMARY | 2023-11-24 13:34 | XMS_ITS | Encounter Summary ---
Author Organization [facility] Address [address] [place] [address]. [place] [address] Care Team Providers Care Sheet Heater Name Role Phone Nicanor Thomas MD Primary Care Provider Natacha Meade [facility] Unavailable [phone] Encounter Details Date Type Department Care Team (Late Contact Info) Description 11/17/2023 MyC Medical Advice [facility] Neurology [address] [phone] Irma Batista LPN Social History Tobacco Use Types Packs/Day Years [...] Description 01/12/2024 9:00 AM CDT Office Visit [facility] Neurology [address] [place] [address] Yemi Bacon MD [address] [place] [address] [id number] [place] [address] 02/14/2024 9:00 AM DIRECTOR OF NURSES REGISTRY Virtual Visit [facility] Multiple Sclerosis [address] [address] Yemi Bacon MD [address] [place] [address] [id number] [place], [place] [phone] Natacha Meade [address] [id number] documented as of this encounter Visit Diagnoses Not on filedocumented in this encounter Care Teams Sheet Heater Relationship Specialty Start Date End Date Nicanor Thomas MD [facility] [address] [address] PCP - General 07/13/05 Natacha Meade [facility] [address] [place] [phone] Pharmacist Pharmacist 11/09/23 documented as of this encounter
--- OUTSIDE RECORDS SUMMARY | 2023-11-24 13:34 | XMS_ITS | Encounter Summary ---
Author Organization [facility] Address [address] [place] [address]. [place] [address] Care Team Providers Care Pedorthist Name Role Phone Nicanor Thomas MD Primary Care Provider Natacha Meade [facility] Unavailable [phone] Encounter Details Date Type Department Care Team (Late st Contact Info) Description 11/23/2023 MyC Medical Advice [facility] Neurology [address] [phone] Yemi Bacon MD [address] [place] [id number] Social History Tobacco Use Types Packs/Day [...] Description 01/12/2024 9:00 AM CDT Office Visit [facility] Neurology [address] [phone] Yemi Bacon MD [address] [place] [address] [place] [address] 02/14/2024 9:00 AM SAFETY ENGINEER [employer] VESSELS Virtual Visit [facility] Multiple Sclerosis [address] [phone] Yemi Bacon MD [address] [place] [phone] Natacha Meade [address] [address] documented as of this encounter Visit Diagnoses Not on filedocumented in this encounter Care Teams Pedorthist Relationship Specialty Start Date End Date Nicanor Thomas MD [facility] [address] [address] PCP - General 07/13/05 Natacha Meade [facility] [address] [place] [address] [phone] Pharmacist Pharmacist 11/09/23 documented as of this encounter
--- OUTSIDE RECORDS SUMMARY | 2023-11-24 13:35 | XMS_ITS | Encounter Summary ---
Author Organization [facility] Address [address] [place] [address]. [place] [address] Care Team Providers Care Automotive Service Cashier Name Role Phone Nicanor Thomas MD Primary Care Provider Baironparvez Natacha [facility] Unavailable [phone] Encounter Details Date Type Department Care Team [...] Office Visit [facility] Neu[facility] [address] 3[address] [place] [phone] Yemi Bacon MD [address] [place] [address] [id number] [place], [place] [id number] 02/14/2024 9:00 AM BROOMCORN GRADER Virtual Visit [facility] [address] [phone] Yemi Bacon MD [address] [facility] [id number] [place], [place] [phone] Natacha Meade RPH [address] [place], [place] [address] documented as of this encounter Visit Diagnoses Not on filedocumented in this encounter Care Teams Automotive Service Cashier Relationship Specialty Start Date End Date Nicanor Thomas MD [facility] [address] [place] [address] PCP - General 07/13/05 Natacha Meade [facility] [address] [place] [address] [phone] Pharmacist Pharmacist 11/09/23 documented as of this encounter
--- OUTSIDE RECORDS SUMMARY | 2023-11-24 13:35 | XMS_ITS | Clinical Summary ---
Author Organization [facility] Address [address] [place] [address] Care Team Providers Care Associate Agent Insurance Sales Name Role Phone Unavailable Primary Care Provider Unavailabl e Source Comments Patient records contain information from all sites at [facility]. For routine questions regarding patient records, call [phone] during business hours, M-F 8:00 AM - 5:00 PM Central Time. Record requests for emergency care only can be directed to [phone] at any time.[facility] Allergies Active Allergy Reactions Criticality Noted Date [...] 11/15/2023 Clinical Communication Department of Neurology in [address] [phone] Tyson Carreon M.D. Letter to support Out of Network ([facility]) 11/08/2023 Clinical Communication Department of Neurology in [address] [phone] Tyson Carreon M.D. Communication 11/07/2023 Clinical Communication Department of Cardiovascular Diseases in [address] [phone] Tyson Carreon M.D. Med Question 10/28/2023 Orders Only Pharmacy Prior Auth RO [phone] Chel Snyder 10/27/2023 Orders Only Pharmacy Prior Auth RO [phone] Margy Teran 10/26/2023 Clinical Communication Department of Neurology in [place], [place] [address] [place] [address] Tyson Carreon M.D. Rx Prior Authorization ([facility] ) 10/25/2023 3:30 PM CDT Office Visit Department of Neurology in [address] [phone] Tyson Carreon M.D. Sclerosis Lateral Amyotrophic (HCC) (Primary Dx) Discharge Disposition: Home or Self Care 10/19/2023 7:11 AM CDT - 10/19/2023 11:59 PM CDT Hospital Encounter Department of Neurology in [address] [phone] Tyson Carreon M.D. Other Motor Neuron Disease (HCC) Discharge Disposition: Home or Self Care 10/18/2023 Clinical Communication Department of Neurology in [address] [phone] Tyson Carreon M.D. Follow-up Orders (MRI in [place] ) 10/17/2023 2:11 PM CDT - 10/17/2023 11:59 PM CDT Hospital Encounter Department of Laboratory Medicine in [address] [phone] Tyson Carreon M.D. Other Motor Neuron Disease (HCC) Discharge Disposition: Home or Self Care 10/17/2023 1:00 PM CDT Office Visit Department of Neurology in [address] [phone] Tyson Carreon M.D. Sclerosis Lateral Amyotrophic (HCC) (Primary Dx); Other Motor Neuron Disease (HCC); Anterior Horn Cell Disease (HCC) Discharge Disposition: Home or Self Care 10/12/2023 Clinical Communication Department of Neurology in [address] [phone] Tyson Carreon M.D. Order Request (F/u clinical [...] your living situation today? I have a [facility] place to live 10/22/2023 Sex and [...] PM CDT Other Motor Neuron Disease (HCC) DE ORGANIC ACID 1 QUANT 2 Routine 10/17/2023 2:43 PM CDT DE T4 FREE Routine 10/17/2023 2:43 PM CDT [...] ? Final Report Study Number: 1 EMG Filter Filler: Kylie Alcocer 127 or [phone] Referred by: TYSON CARREON (127 or [phone]) Referred for: Query bulbar onset ALS Referral [...] and cervical myotomes. Alberto Alcocer (127 or [phone])/ACV NERVE CONDUCTIONS ??Record Rep ?? Normal ??Normal [...] Electromyography Final Report Study Number: 1 EMG Filter Filler: Kylie Alcocer 127 or [phone] Referred by: TYSON CARREON (127 or [phone]) Referred for: Query bulbar onset ALS Referral [...] and cervical myotomes. Alberto Alcocer (127 or [phone])/ACV NERVE CONDUCTIONS Record Rep Normal Normal Distal [...] Carreon M.D. NEUROLOGY ORDERABLES Performing Organization Address City/[facility] [[email or web address]] Co de Phone Number EMG * Lyme [...] - B LOOD ORDERABLES Performing Organization Address [facility] de Phone Number [facility] [address] [place] [address] ECLR [facility] [place] [address] * (ABNORMAL) Neurofilament Light Chain (NfL) (10/17/2023 2:49 PM CDT) Neurofilament Light Chain, P 70.7(H) <=25.4 pg/mL 10/19/2023 3:29 PM CDT [facility] Comment: ----ADDITIONAL INFORMATION---- The testing method is a digital immunoassay for the quantitative determination of NfL in plasma manufactured by [employer] and performed on the BioMedomics-X analyzer. Values obtained with different methods may be different and cannot be used interchangeably. This test was developed and its performance characteristics determined by [facility] in a manner consistent with CLIA requirements. This test has not been cleared or approved by the U.S. Food and Drug Administration. Blood (Blood, Venous) 10/17/2023 2:49 PM CDT 10/18/2023 8:38 AM CDT Tyson Carreon M.D. LAB BLOOD NON ADD-ON [facility] [address] [place] [address] [facility] [address] [place] [address] * Myelopathy, Autoimmune/Paraneoplastic Evaluation (10/17/2023 2:46 PM CDT) Pathologist [facility] Autoimmune Myelopathy Interp, S see below 10/24/2023 [...] and its performance characteristics determined by [facility] in a manner consistent with CLIA requirements. This test has not been cleared or approved by the U.S. Food and Drug Administration. AGNA-1, S Negative Negative 10/24/2023 5:13 PM CDT DTL Comment: ----ADDITIONAL INFORMATION---- This test was developed and its performance characteristics determined by [facility] in a manner consistent with CLIA requirements. This test has not been cleared or approved by the U.S. Food and Drug Administration. NAEEM-1, S Negative Negative 10/24/2023 5:13 PM CDT D[facility] Comment: ----ADDITIONAL INFORMATION---- This test was developed and its performance characteristics determined by [facility] in a manner consistent with CLIA requirements. This test has not been cleared or approved by the U.S. Food and Drug Administration. NAEEM-2, S Negative Negative 10/24/2023 5:13 PM CDT DTL Comment: ----ADDITIONAL INFORMATION---- This test was developed and its performance characteristics determined by [facility] in a manner consistent with CLIA requirements. This test has not been cleared or approved by the U.S. Food and Drug Administration. NAEEM-3, S Negative Negative 10/24/2023 5:13 PM CDT DTL Comment: ----ADDITIONAL INFORMATION---- This test was developed and its performance characteristics determined by [facility] in a manner consistent with CLIA requirements. This test has not been cleared or approved by the U.S. Food and Drug Administration. AP3B2 IFA, S Negative Negative 10/24/2023 5:13 PM CDT DTL Comment: ----ADDITIONAL INFORMATION---- This test was developed and its performance characteristics determined by [facility] in a manner consistent with CLIA requirements. This test has not been cleared or approved by the U.S. Food and Drug Administration. CRMP-5-IgG Western Blot, S Negative Negative 10/24/2023 5:13 PM CDT DTL Comment: ----ADDITIONAL INFORMATION---- This test was developed and its performance characteristics determined by [facility] in a manner consistent with CLIA requirements. This test has not been cleared or approved by the U.S. Food and Drug Administration. DPPX Ab CBA, S Negative Negative 10/24/2023 5:13 PM CDT DTL Comment: ----ADDITIONAL INFORMATION---- This test was developed and its performance characteristics determined by [facility] in a manner consistent with CLIA requirements. This test has not been cleared or approved by the U.S. Food and Drug Administration. JOSE-B-R Ab CBA, S Negative Negative 2023 5:13 PM CDT DTL Comment: ----ADDITIONAL INFORMATION---- This test was developed and its performance characteristics determined by [facility] in a manner consistent with CLIA requirements. This test has not been cleared or approved by the U.S. Food and Drug Administration. GAD65 Ab Assay, S 0.00 <=0.02 nmol/L 10/24/2023 5:13 PM CDT DTL Comment: ----ADDITIONAL INFORMATION---- This test was developed and its performance characteristics determined by [facility] in a manner consistent with CLIA requirements. This test has not been cleared or approved by the U.S. Food and Drug Administration. GFAP IFA, S Negative Negative 10/24/2023 5:13 PM CDT DTL Comment: ----ADDITIONAL INFORMATION---- This test was developed and its performance characteristics determined by [facility] in a manner consistent with CLIA requirements. This test has not been cleared or approved by the U.S. Food and Drug Administration. mGluR1 Ab IFA, S Negative Negative 10/24/19 5:13 PM CDT DTL Comment: ----ADDITIONAL INFORMATION---- This test was developed and its performance characteristics determined by [facility] in a manner consistent with CLIA requirements. This test has not been cleared or approved by the U.S. Food and Drug Administration. MOG FACS, S Negative Negative 10/24/2023 5:13 PM CDT DTL Comment: ----ADDITIONAL INFORMATION---- This test was developed and its performance characteristics determined by [facility] in a manner consistent with CLIA requirements. This test has not been cleared or approved by the U.S. Food and Drug Administration. NIF IFA, S Negative Negative 10/24/2023 5:13 PM CDT DTL Comment: ----ADDITIONAL INFORMATION---- This test was developed and its performance characteristics determined by [facility] in a manner consistent with CLIA requirements. This test has not been cleared or approved by the U.S. Food and Drug Administration. NMO/AQP4 FACS, S Negative Negative 10/24/19 5:13 PM CDT DTL Comment: ----ADDITIONAL INFORMATION---- This test was developed and its performance characteristics determined by [facility] in a manner consistent with CLIA requirements. This test has not been cleared or approved by the U.S. Food and Drug Administration. Neurochondrin IFA, S Negative Negative 10/24/2023 5:13 PM CDT DTL Comment: ----ADDITIONAL INFORMATION---- This test was developed and its performance characteristics determined by [facility] in a manner consistent with CLIA requirements. This test has not been cleared or approved by the U.S. Food and Drug Administration. OPERATIONS PROFESSIONAL-1, S Negative Negative 10/24/2023 5:13 PM CDT DTL Comment: ----ADDITIONAL INFORMATION---- This test was developed and its performance characteristics determined by [facility] in a manner consistent with CLIA requirements. This test has not been cleared or approved by the U.S. Food and Drug Administration. OPERATIONS PROFESSIONAL-2, S Negative Negative 10/24/2023 5:13 PM CDT DTL Comment: ----ADDITIONAL INFORMATION---- This test was developed and its performance characteristics determined by [facility] in a manner consistent with CLIA requirements. This test has not been cleared or approved by the U.S. Food and Drug Administration. Septin-7 IFA, S Negative Negative 5:13 PM CDT DTL Comment: ----ADDITIONAL INFORMATION---- This test was developed and its performance characteristics determined by [facility] in a manner consistent with CLIA requirements. This test has not been cleared or approved by the U.S. Food and Drug Administration. TRIM46 Ab IFA, S Negative Negative 10/24/19 24 5:13 PM CDT DTL Comment: ----ADDITIONAL INFORMATION---- This test was developed and its performance characteristics determined by [facility] in a manner consistent with CLIA requirements. This test has not been cleared or approved by the U.S. Food and Drug Administration. Blood (Blood, Venous) 10/17/2023 2:46 PM CDT 10/18/2023 10:15 AM CDT Tyson Carreon M.D. LAB BLOOD ADD-ON [facility] [address] [place] [address], [facility] DT [address] [place] [address] * Ganglioside Antibody Panel (10/17/2023 2:46 PM CDT) IgG Monos. GM1 Negative Negative 10/25/2023 2:11 PM CDT DTL Comment: ----ADDITIONAL INFORMATION---- This test was developed and its performance characteristics determined by [facility] in a manner consistent with CLIA requirements. This test has not been cleared or approved by the U.S. Food and Drug Administration. IgM Monos. GM1 Negative Negative 10/25/2023 2:11 PM CDT DTL Comment: ----ADDITIONAL INFORMATION---- This test was developed and its performance characteristics determined by [facility] in a manner consistent with CLIA requirements. This test has not been cleared or approved by the U.S. Food and Drug Administration. IgG Asialo. GM1 Negative Negative 4 2:11 PM CDT DTL Comment: ----ADDITIONAL INFORMATION---- This test was developed and its performance characteristics determined by [facility] in a manner consistent with CLIA requirements. This test has not been cleared or approved by the U.S. Food and Drug Administration. IgM Asialo. GM1 Negative Negative 4 2:11 PM CDT DTL Comment: ----ADDITIONAL INFORMATION---- This test was developed and its performance characteristics determined by [facility] in a manner consistent with CLIA requirements. This test has not been cleared or approved by the U.S. Food and Drug Administration. IgG Disialo. GD1b Negative Negative 024 2:11 PM CDT DTL Comment: ----ADDITIONAL INFORMATION---- This test was developed and its performance characteristics determined by [facility] in a manner consistent with CLIA requirements. This test has not been cleared or approved by the U.S. Food and Drug Administration. IgM Disialo. GD1b Negative Negative 024 2:11 PM CDT DTL Comment: ----ADDITIONAL INFORMATION---- This test was developed and its performance characteristics determined by [facility] in a manner consistent with CLIA requirements. This test has not been cleared or approved by the U.S. Food and Drug Administration. Blood (Blood, Venous) 10/17/2023 2:46 PM CDT 10/18/2023 10:15 AM CDT Tyson Carreon M.D. LAB BLOOD NON ADD-ON [facility] [address] [place] [address], [facility] DTL [address] [place] [address] * Quantitative M-protein Study (10/17/2023 2:43 PM [...] and its performance characteristics determined by [facility] in a manner consistent with CLIA requirements. This test has not been cleared or approved by the U.S. Food and Drug Administration. Blood (Blood, Venous) 10/17/2023 2:43 PM CDT 10/18/2023 6:28 AM CDT Narrative [facility] - 10/19/2023 8:50 AM CDT Specimen Information: Specimen ID: [id number] Specimen Type: Blood Specimen Collection Start Date: 10/17/2023 11:00 PM Specimen Received Date: 10/18/2023 ??6:28 AM Specimen ID: [id number] Specimen Type: Blood Specimen Collection Start Date: 10/17/2023 ??2:43 PM Specimen Received Date: 10/18/2023 ??7:09 AM Tyson Carreon M.D. LAB BLOOD ADD-ON [facility] [address] [place] [address] [facility] [address] [place] [address] [facility] [address] [place] [address] [place] [address] * T4 (Thyroxine), Free, Serum (10/17/2023 2:43 PM CDT) T4 (Thyroxine), Free, S 0.9 0.9 - 1.7 ng/dL 10/17/2023 3:57 PM CDT [facility] Blood 10/17/2023 2:43 PM CDT 10/17/2023 2:49 PM CDT Tyson Carreon M.D. LAB BLOOD ADD-ON [facility] [address] [place] [address], [facility] RDWG [facility] in [address] [phone] * Methylmalonic Acid (MMA), Quantitative, Serum (10/17/2023 2:43 PM CDT) Pathologist [facility] Methylmalonic Acid, QN, S 0.22 <=0.40 nmol/mL 10/20/2023 8:15 AM CDT DTL Comment: No cellular B-12 deficiency. ----ADDITIONAL INFORMATION---- This test was developed and its performance characteristics determined by [facility] in a manner consistent with CLIA requirements. This test has not been cleared or approved by the U.S. Food and Drug Administration. Blood 10/17/2023 2:43 PM CDT 10/18/2023 1:29 PM CDT Tyson Carreon M.D. LAB BLOOD NON ADD-ON [facility] [address] [place] [address], [place] DTL [address] [place] [address] * Antinuclear Ab [place], S (10/17/2023 2:43 PM CDT) Pathologist [facility] Antinuclear Ab Screen by IFA, S Negative Negative 10/19/2023 8:45 AM CDT ECLR Comment:No titer performed, COURT screen is negative. Blood (Blood, Venous) 10/17/2023 2:43 PM CDT 10/17/2023 9:02 PM CDT Tyson Carreon M.D. LAB BLOOD NON ADD-ON Performing Organization Address City/[facility]/ZIP Co de Phone Number [facility] [address] [place] [address], [facility] ECLR [address] [place] [phone] * (ABNORMAL) Thyroid Function [place] (10/17/2023 2:43 PM CDT) TSH, Sensitive 10.3(H) 0.3 - 4.2 mIU/L 10/17/2023 3:35 PM CDT [facility] Blood (Blood, Venous) 10/17/2023 2:43 PM CDT 10/17/2023 2:49 PM CDT Tyson Carreon M.D. LAB BLOOD ADD-ON Performing Organization Address [facility] [[email or web address]] Co de Phone Number [facility] [address] [place] [address], [facility] RDWG [facility] in [place] [address] [place] [phone] * Pernicious Anemia [place] (10/17/2023 2:43 PM CDT) Vitamin B12 Assay, S 248 180 - 914 ng/L 10/18/2023 11:55 AM CDT [facility] Comment:B-12 <400; MMA test was performed. Blood (Blood, Venous) 10/17/2023 2:43 PM CDT 10/18/2023 8:35 AM CDT Narrative [facility] - 10/18/2023 11:55 AM CDT Specimen Information: Specimen ID: [id number] Specimen Type: Blood Specimen Collection Start Date: 10/17/2023 ??2:43 PM Specimen Received Date: 10/18/2023 ??8:35 AM Specimen ID: [id number] Specimen Type: Blood Specimen Collection Start Date: 10/17/2023 ??2:43 PM Specimen Received Date: 10/18/2023 ??8:52 AM Tyson Carreon M.D. LAB BLOOD NON ADD-ON [facility] [address] [place] [address] [facility] [address] [place] [address] * Hexosaminidase A and Total Hexosaminidase, Leukocytes (10/17/2023 2:43 PM CDT) [facility] Hexosaminidase Total, WBC 23.9 16.4 - [...] test MUGS). Please contact the [employer] strategic sourcing consultant or genetic counselor fire protection engineering technician ( ) if you have any questions. 10/21/2023 2:17 PM CDT DTL Comment: ----ADDITIONAL INFORMATION---- Heat Inactivation, Fluorometric This test was developed and its performance characteristics determined by [facility] in a manner consistent with CLIA requirements. This test has not been cleared or approved by the U.S. Food and Drug Administration. Blood (Blood, Peripheral Draw) 10/17/2023 2:43 PM CDT 10/18/2023 7:40 AM CDT Tyson Carreon M.D. LAB GENETIC TESTING [facility] [address] [place] [address], [facility] DTL [address] [place] [address] * Cryopreservation for Molecular Genetic Studies (10/17/2023 [...] is not a DNA banking service. If chcf, guaranteed specimen storage is required, DNA banking [...] M.D. LAB GENETIC TESTING Performing Organization Address City/[facility]/ZIP Co de Phone Number [facility] [address] [place] [address], [facility] DTL [address] [facility] [address] [place] [address] * (ABNORMAL) Thyroperoxidase (TPO) Antibodies (10/17/2023 2:43 PM CDT) Thyroperoxidase Ab, S 125.9(H) <34.0 IU/mL 10/18/2023 3:45 AM CDT E[facility] Blood 10/17/2023 2:43 PM CDT 10/17/2023 9:04 PM CDT Tyson Carreon M.D. LAB BLOOD ADD-ON Performing Organization Address [facility] [[email or web address]] Co de Phone Number [facility] [address] [place] [address], [facility] ECLR [facility] [place] [address] * Copper (10/17/2023 2:43 PM CDT) Copper, S 115 77 - 206 mcg/dL 10/18/2023 10:42 AM CDT [facility] Comment: ----ADDITIONAL INFORMATION---- This test was developed and its performance characteristics determined by [facility] in a manner consistent with CLIA requirements. This test has not been cleared or approved by the U.S. Food and Drug Administration. Blood (Blood, Venous) 10/17/2023 2:43 PM CDT 10/17/2023 9:48 PM CDT Tyson Carreon M.D. LAB BLOOD NON ADD-ON Performing Organization Address City/[facility]/ZIP Co de Phone Number [facility] [address] [place] [address] [facility] [address] [place] [address] [place] [address] * Phosphorus Inorganic (10/17/2023 2:43 PM CDT) Phosphorus (Inorganic), P 3.0 2.5 - 4.5 mg/dL 10/17/2023 3:17 PM CDT [facility] Blood (Blood, Venous) 10/17/2023 2:43 PM CDT 10/17/2023 2:49 PM CDT Tyson Carreon M.D. LAB BLOOD ADD-ON Performing Organization Address [facility] [[email or web address]] Co de Phone Number [facility] [address] [place] [address], [facility] RDWG [facility] in [place] [address] [place] [phone] * (ABNORMAL) Parathyroid Hormone (PTH) (10/17/2023 2:43 PM CDT) Parathyroid Hormone (PTH), S 74(H) 15 - 65 pg/mL 10/17/2023 3:27 PM CDT [facility] Comment: Biotin has been identified by the telephone worker as a potential interfering substance. Higher concentrations of biotin may be found in multivitamins, hair/nail supplements, and workout supplements. If the result does not match clinical observations, repeat testing after patient refrains from the use of supplements for at least 12 hours. Blood (Blood, Venous) 10/17/2023 2:43 PM CDT 10/17/2023 2:49 PM CDT Tyson Carreon M.D. LAB BLOOD ADD-ON Performing Organization Address [facility] [[email or web address]] Co de Phone Number [facility] [address] [place] [address], [facility] RDWG [facility] in [place] [address] [place] [address], [place] [phone] * Creatinine with Estimated GFR (10/17/2023 2:43 PM CDT) Creatinine 0.78 0.59 - 1.04 mg/dL 10/17/2023 3:17 PM CDT [facility] Estimated GFR (eGFR) 87 >=60 mL/min/BSA 10/17/2023 3:17 PM CDT [facility] Comment: Estimated GFR calculated using the 2020 CKD_EPI creatinine equation. Blood (Blood, Venous) 10/17/2023 2:43 PM CDT 10/17/2023 2:49 PM CDT Tyson Carreon M.D. LAB BLOOD ADD-ON [facility] [address] [address], [facility] RDWG [facility] [place] [address] [place] [address] * CK (Creatine Kinase) (10/17/2023 2:43 PM CDT) Creatine Kinase, P 163 26 - 192 U/L 10/17/2023 3:17 PM CDT [facility] Blood (Blood, Venous) 10/17/2023 2:43 PM CDT 10/17/2023 2:49 PM CDT Tyson Carreon M.D. LAB BLOOD ADD-ON Performing Organization Address City/[facility]/ZIP Co de Phone Number [facility] [place] [address], [facility] RDW[facility] [place] [address] * Calcium, Total (10/17/2023 2:43 PM CDT) Calcium, Total, P 9.3 8.6 - 10.0 mg/dL 10/17/2023 3:17 PM CDT [facility] Blood (Blood, Venous) 10/17/2023 2:43 PM CDT 10/17/2023 2:49 PM CDT Tyson Carreon M.D. LAB BLOOD ADD-ON [facility] [place] [address], [facility] RDW[facility] [place] [address] [place] [id number] * Vitamin E Level (10/17/2023 2:39 PM CDT) A-Tocopherol, Vitamin E 13.6 5.5 - 17.0 mg/L 10/19/2023 8:25 AM CDT [facility] Comment: ----ADDITIONAL INFORMATION---- This test was developed and its performance characteristics determined by [facility] in a manner consistent with CLIA requirements. This test has not been cleared or approved by the U.S. Food and Drug Administration. Blood (Blood, Venous) 10/17/2023 2:39 PM CDT 10/18/2023 11:23 AM CDT Tyson Carreon M.D. LAB BLOOD NON ADD-ON [facility] [place] [address] [place] [address] [facility] [address] [place] [address] [place] [address] from Last 3 Months
--- OUTSIDE RECORDS SUMMARY | 2023-11-24 13:35 | XMS_ITS | Encounter Summary ---
Author Organization [place] Address [address] [place] [address]. [place] [address] Care Team Providers Care Log Cooker Name Role Phone Nicanor Thomas MD Primary Care Provider Natacha Meade [facility] Unavailable [phone] Reason for Visit * Reason Comments RECHECK Encounter Details Date Type Department Care Team ([facility] st Contact Info) Description 11/10/2023 1:00 PM CDT Office Visit [facility] [address] 3rd [place] [address] Yemi Bacon MD [address] [place], [place] [id number] [place], [place] [id number] ALS (amyotrophic lateral sclerosis) (H) (Primary Dx) [...] questions or problems! Please call Keli @ [phone] for questions or concerns during regular business hours. For a more efficient way to communicate, use [employer] and address the message to your physician. Remember, [employer]Not[employer] is only read during business hours. Do not leave urgent messages on voiceKalturail or [employer]. If situation is urgent, contact the Neurology Clinic @ [phone] and ask to speak to a Triage [...] AM CDT Office Visit [facility] [address] 3rd [place] [phone] Yemi Bacon MD [address] [place] [address] [id number] [place], [place] [address] 02/14/2024 9:00 AM BACK TENDER PAPER MACHINE Virtual Visit [facility] [address] [address] Yemi Bacon MD [address] [place] [address] [id number] [place], [place] [id number] Natacha Meade[address] [address] documented as of this encounter Results * Hepatic panel (11/10/2023 3:59 PM CDT) Pathologist [facility] Protein Total 7.2 6.4 - 8.3 g/dL 11/10/2023 4:26 PM CDT [facility] Albumin 4.4 3.5 - 5.2 g/dL 11/10/2023 4:26 PM CDT [facility] Bilirubin Total 0.3 <=1.2 mg/dL 11/10/2023 4:26 PM CDT [facility] Alkaline Phosphatase 70 40 - 150 U/L 11/10/2023 4:26 PM CDT [facility] AST 23 0 - 45 U/L 11/10/2023 4:26 PM CDT [facility] ALT 14 0 - 50 U/L 11/10/2023 4:26 PM CDT [facility] Bilirubin Direct <0.20 0.00 - 0.30 mg/dL 11/10/2023 4:26 PM CDT [facility] Blood STRUCTURE OF RIGHT UPPER LIMB / Unknown Venipuncture / Unknown 11/10/2023 3:59 PM CDT 11/10/2023 3:59 PM CDT Yemi Bacon MD LAB - BLOOD ORDERABL ES [facility]ORE LAB [facility] - [address] 1st [place] [address] documented in this encounter Visit Diagnoses Diagnosis ALS (amyotrophic lateral sclerosis) (H)- Primary Amyotrophic lateral sclerosis documented in this encounter Care Teams Log Cooker Relationship Specialty Start Date End Date Nicanor Thomas MD [facility] [address] [place] [address] PCP - General 07/13/05 Natacha Meade RPH [address] [place] [address] Pharmacist Pharmacist 11/09/23 documented as of this encounter
--- OUTSIDE RECORDS SUMMARY | 2023-11-24 13:35 | XMS_ITS | Encounter Summary ---
Author Organization [place] Address [address] [place] [address]. [place] [address] Care Team Providers Care Logging Specialist Name Role Phone Nicanor Thomas MD Primary Care Provider Encounter Details Date Type Department Care Team (Late Contact Info) Description 10/28/2023 Orders Only [facility] Neurology [address] [address] Irma Batista LPN Muscle weakness [...] Description 01/12/2024 9:00 AM CDT Office Visit [facility] Neurology [address] [address] Yemi Bacon MD [address] [place] [address] [id number] [place] [address] 02/14/2024 9:00 AM INTRAVENOUS THERAPY NURSE Virtual Visit [facility] Multiple Sclerosis [address] [phone] Yemi Bacon MD [address] [place] [address] [id number] [place], [place] 5[address] Halina Natacha, [address] [id number] documented as of this encounter Results * Pulmonary Function Test (11/02/2023 12:50 PM CDT) [facility] Signature FVC-Pred 3.14 L BREEZE PFT FVC-Pre 3.29 L BREEZE PFT FVC-%Pred-Pre 104 % BREEZE PFT FEV1-Pre 2.67 L BREEZE PFT FEV1-%Pred-Pre 107 % BREEZE PFT [id number] 80 % BREEZE PFT [id number] 81 % BREEZE PFT FEFMax-Pred 6.63 L/sec BREEZE PFT FEFMax-Pre 5.47 L/sec BREEZE PFT FEFMax-%Pred-Pr e 82 % BREEZE PFT [id number] 2.27 L/sec BREEZE PFT [id number] 2.74 L/sec BREEZE PFT LRT3340-%Pred-P re 120 % BREEZE PFT ExpTime-Pre 5.71 sec BREEZE PFT FIFMax-Pre 2.04 L/sec BREEZE PFT MEP-Pre 70 cmH2O BREEZE PFT MIP-Pre -50 cmH2O BREEZE PFT [id number] 81 % BREEZE PFT [id number] 82 % BREEZE PFT 11/02/2023 12:5 0 PM CDT Narrative BREEZE PFT - 11/03/2023 6:37 PM CDT The FVC, FEV1, FEV1/FVC ratio and GWO28-64% are within normal limits. IMPRESSION: Normal Spirometry. MIP and MEP are reduced. ?This interpretation has been electronically signed: ??RIOS CHRISTIANSON 11/03/2023 ??06:09:20 PM? Yemi Bacon MD PFT ORDERABLES HIRAMEZE PFT documented in this encounter Visit Diagnoses Diagnosis Muscle weakness (generalized)- Primary Muscle weakness (generalized) documented in this encounter Care Teams Logging Specialist Relationship Specialty Start Date End Date Nicanor Thomas MD [facility] [address] [facility] [address] [place] [address] PCP - General 07/13/05 documented as of this encounter
--- OUTSIDE RECORDS SUMMARY | 2023-11-24 13:35 | XMS_ITS | Encounter Summary ---
Author Organization [place] Address [address] [place] [address]. [place] [address] Care Team Providers Care Roaster Operator Name Role Phone Nicanor Thomas MD Primary Care Provider Natacha Meade [facility] Unavailable [phone] Reason for Visit * Rehab Therapy Physical Therapy (Routine) - Referral NOT Required Specialty Diagnoses / Procedures Referred By Paolo llanos Referred To Contact Physical Therapy Procedures [facility]INIC[facility] ALS [address] [address] Referral ID Status Reason Start Date Expiration Date V isits Requested Visits Authorized [id number] Referral NOT Required 11/10/2023 04/03/2024 365 365 Encounter Details Date Type Department Care Team (Latest Contact Info) Description 11/10/2023 2:15 PM CDT Therapy Visit [address] 3rd [place] [address] Katerina Cervantes, LOOPING MACHINE OPERATOR [address] [place] [phone] ALS (amyotrophic lateral sclerosis) (H) (Primary Dx); [...] this encounter Progress Notes * Katerina Cervantes, LOOPING MACHINE OPERATOR - 11/10/2023 2:15 PM CDT SPEECH LANGUAGE [...] not recommended at this time Dysphagia Intervention: LOOPING MACHINE OPERATOR educated in swallowing anatomy and physiology including [...] Preservation, educatedin AAC as below Communication Intervention: LOOPING MACHINE OPERATOR provided education regarding lingual and labial impact on speech and articulation. LOOPING MACHINE OPERATOR trained use of speech strategies to improve intelligibility and reduce fatigue with speaking (reducing background noise, facing the conversation partner, speaking slowly, exaggerating each sound, repeating words or rewording message, using as few words as possible, planning aheadto reduce impact of fatigue). LOOPING MACHINE OPERATOR also trained conversational partners present today regarding listener strategies (giving speaker full attention, letting the speaker know if message not understood, repeating the part of the message that was understood so speaker only needs to repeat the part that was missed, asking yes/no questions when able). LOOPING MACHINE OPERATOR introduced concept of Augmentative-Alternative Communication and demonstrated use of SecurActive Board and iPad with AAC nora (Astrobiologist) both for communication and to demonstrate voice [...] good Rehab potential is impacted by: comorbidities Fci Goals: Based on today's evaluation session patient [...] (sum of timed and untimed services): 22 Skill Training Program Coordinator Present: Not applicable Signing Clinician: ABDULLAHI Marc documented in this encounter Plan of Treatment Upcoming Encounters Date Type Department Care Team (Late st Contact Info) Description 01/12/2024 9:00 AM CDT Office Visit [facility] Neurology Clinic [address] 3rd [place] [phone] Yemi Bacon MD [address] [place] [address] 02/14/2024 9:00 AM GRADUATE RESEARCH ASSISTANT Virtual Visit [facility] Multiple Sclerosis [address] [phone] Yemi Bacon MD [address] [place] [address] Natacha Meade, [address] [address] documented as of this encounter Visit Diagnoses Diagnosis ALS (amyotrophic lateral sclerosis) (H)- Primary Amyotrophic lateral sclerosis Dysarthria Oropharyngeal dysphagia Dysphagia, oropharyngeal phase documented in this encounter Care Teams Roaster Operator Relationship Specialty Start Date End Date Nicanor Thomas MD [facility] [address] [place] [address] PCP - General 07/13/05 Natacha Meade [facility] [address] [place] [address] Pharmacist Pharmacist 11/09/23 documented as of this encounter
--- OUTSIDE RECORDS SUMMARY | 2023-11-24 13:35 | XMS_ITS | Encounter Summary ---
Author Organization [place] Address [address] [place] [address]. [place] [address] Care Team Providers Care Equipment Service Lead Name Role Phone Nicanor Thomas MD Primary Care Provider Natacha Meade [facility] Unavailable [phone] Reason for Referral * Medication Prior Authorization - Denied Specialty Diagnoses / Procedures Referred By Paolo llanos Referred To Contact Diagnoses ALS (amyotrophic lateral sclerosis) (H) Yemi Bacon MD [address] [place] [address] Referral ID Status Reason Start Date Expiration Date Visits Re quested Visits Authorized [id number] Denied 11/10/2023 11/09/2024 1 1 Reason for Visit * Reason Onset Date Comments Medication Request 11/10/2023 Nuedexta Encounter Details Date Type Department Care Team ([facility] st Contact Info) Description 11/10/2023 Telephone [facility] Neurology Clinic [address] 3rd [place] [address] Yemi Bacon MD [address] [place] [address] Medication Request (Nuedexta) Social History Tobacco Use [...] Meade, PharmD, BCACP Medication Therapy Management Pharmacist [facility] Neurology documented in this encounter Plan of Treatment Upcoming Encounters Date Type Department Care Team (Late st Contact Info) Description 01/12/2024 9:00 AM CDT Office Visit [facility] Neurology Clinic [address] [phone] Yemi Bacon MD [address] [place] [id number] 02/14/2024 9:00 AM CONCRETE WALL GRINDER OPERATOR Virtual Visit [facility] Multiple Sclerosis Clinic [address] [phone] Yemi Bacon MD [address] [place] [phone] Natacha Meade RPH [address] [place] [address] documented as of this encounter Visit Diagnoses Diagnosis ALS (amyotrophic lateral sclerosis) (H)- Primary Amyotrophic lateral sclerosis documented in this encounter Care Teams Equipment Service Lead Relationship Specialty Start Date End Date Nicanor Thomas MD [facility] [address] [place] [address] PCP - General 07/13/[address] [facility] [address] [place] [address] Pharmacist Pharmacist 11/09/23 documented as of this encounter
--- OUTSIDE RECORDS SUMMARY | 2023-11-24 13:35 | XMS_ITS | Encounter Summary ---
Author Organization [place] Address [address] [place] [address]. [place] [address] Care Team Providers Care Dielectric Tester Name Role Phone Nicanor Thomas MD Primary [...] Description 01/12/2024 9:00 AM CDT Office Visit [facility] Neurology Clinic [address] 3rd [place] [phone] Yemi Bacon MD [address] [place] [address] 02/14/2024 9:00 AM ASSAULT AMPHIBIOUS VEHICLE OFFICER Virtual Visit [facility] Multiple Sclerosis Clinic [address] [phone] Yemi Bacon MD [address] [place] [address] Natacha Meade, [facility] [address] [place] [address] documented as of this encounter Visit Diagnoses Not on filedocumented in this encounter Care Teams Dielectric Tester Relationship Specialty Start Date End Date Nicanor Thomas MD [facility] [address] [facility] 200 [place] [address] PCP - General 07/13/05 documented as of this encounter
--- OUTSIDE RECORDS SUMMARY | 2023-11-24 13:35 | XMS_ITS | Encounter Summary ---
Author Organization [place] Address [address] [place] [address]. [place] [address] Care Team Providers Care Electrical Machine Builder Name Role Phone Nicanor Thomas MD Primary Care Provider Natacha Meade [facility] Unavailable [phone] Reason for Visit * Consultation (Routine: Next available opening) - Pending Review Specialty Diagnoses / Procedures Referred By Paolo llanos Referred To Contact Genetics, Clinical Diagnoses ALS (amyotrophic lateral sclerosis) (H) Yemi Bacon MD [address] [facility] [id number] [place] [address] Referral ID Status Reason Start Date Expiration Date V isits Requested Visits Authorized [id number] Pending Review 11/04/2023 11/03/2024 1 1 Encounter Details Date Type Department Care Team (Late st Contact Info) Description 11/10/2023 7:30 AM CDT Virtual Visit [facility] [address] [place] [address] Clinic 12th Flr,[place] [address] Lisset Quiros, GC [address] [place] [address] Encounter for nonprocreative genetic counseling (Primary [...] a hexanucleotide repeat expansion (GGGGCC) in the B3jmq11 gene. The number of hexanucleotide repeats in the V0ejk32 gene ranges from 2 to >4000. The precise cutoff of between normal and pathogenic (disease causing) is complicated by multiple factors, but generally <25 is considered normal and >60 is considered pathogenic. Repeat expansions in the H7ecx59 gene account for approximately 39-45% of familial [...] genetic testing is to begin testing the N0cuy33 gene to determine if an individual has a normal number of hexanucleotide repeats (<25) or an expanded number of hexanucleotide repeats (>60). If that testing identifies normal repeats on both copies of M0vzj09, then testing can be expanded to a [...] program. Plan: 1. Sponsored ALS panel with A8bhb86 and ATXN2 repeat analysis at [employer] [facility]. 2. Return pending results of above testing 3. Contact information was provided should any questions arise in the future. Lisset Quiros [facility] Genetic Counselor Division of Genetics and Metabolism (p) [phone] (f) [phone] Total time spent in consultation with the family was approximately 28 minutes Cc: No Letter documented in this encounter Plan of Treatment Upcoming Encounters Date Type Department Care Team (Late st Contact Info) Description 01/12/2024 9:00 AM CDT Office Visit [facility] Neurology Clinic [address] 3rd [place] [phone] Yemi Bacon MD [address] [place] [phone] 02/14/2024 9:00 AM MARBLE MASON Virtual Visit [facility] Multiple Sclerosis Clinic [address] [address] Yemi Bacon MD [address] [place] [phone] [address] [id number] documented as of this encounter Results * Other Laboratory; prevention genetics; sponsored ALS panel with [id number] and ATXN2 repeat analysis test code [id number] (Laboratory Miscellaneous Order) (11/10/2023 3:59 PM CDT) Specimen Status Specimen received. Reordered and sent to performing laboratory. Report to follow up on completion. [facility] 11/11/2023 1:24 PM CDT LABORATORY Performing Laboratory prevention genetics [place] 11/11/2023 1:24 PM CDT [facility] Test Name sponsored ALS panel with I3qob73 and ATXN2 repeat analysis test code [id number] [facility] 11/11/2023 1:24 PM CDT [facility] Blood STRUCTURE OF RIGHT UPPER LIMB / Unknown Venipuncture / Unknown 11/10/2023 3:59 PM CDT 11/10/2023 3:59 PM CDT Yemi Bacon MD LAB - BLOOD ORDERABL ES LAB[facility]ATORY [facility] Core Lab [address] [facility] [address] Building, Room [address]-580 [place] [address], [facility] - CORE LAB [facility] [place] [address] [place] [address] 1st [place] [address] documented in this encounter Visit Diagnoses Diagnosis Encounter for nonprocreative genetic counseling- Primary ALS (amyotrophic lateral sclerosis) (H) Amyotrophic lateral sclerosis documented in this encounter Care Teams Electrical Machine Builder Relationship Specialty Start Date End Date Nicanor Thomas MD [facility] [address] [place] [address] PCP - General 07/13/05 Natacha Meade RPH [address] [place] [address] Pharmacist Pharmacist 11/09/23 documented as of this encounter
--- OUTSIDE RECORDS SUMMARY | 2023-11-24 13:35 | XMS_ITS | Encounter Summary ---
Author Organization [place] Address [address] [place] [address]. [place] [address] Care Team Providers Care Porcelain Waxer Name Role Phone Nicanor Thomas MD Primary Care Provider Halina Natacha [facility] Unavailable [phone] Reason for Referral * Consultation (Routine: Next available opening) - Pending Review Specialty Diagnoses / Procedures Referred By Paolo llanos Referred To Contact Genetics, Clinical Diagnoses ALS (amyotrophic lateral sclerosis) (H) Yemi Bacon MD [address] [facility] [id number] [place] [address] Referral ID Status Reason Start Date Expiration Date V isits Requested Visits Authorized [id number] Pending Review 11/04/2023 11/03/2024 1 1 Question Answer Reason for Referral: Neuromuscular Scheduling Instructions: [facility] will call you to coordinate your care as prescribed by your provider. If you don't hear from a public utilities sales representative within 2 business days, please call [phone]. Additional Information: ALS panel - Lisset Quiros [...] plan with any benefit or coverage questions. [facility] will call you to coordinate your care as prescribed by your provider. If you don't hear from a public utilities sales representative within 2 business days, please call [phone]. * Med Therapy Management (Routine: Next available opening) - Closed Specialty Diagnoses / Procedures Referred By Paolo llanos Referred To Contact Pharmacist Diagnoses ALS (amyotrophic lateral sclerosis) (H) Yemi Bacon MD [address] [facility] [id number] [place] [address] Referral ID Status Reason Start Date Expiration Date Visits Re quested Visits Authorized [id number] Closed 11/04/2023 11/03/2024 1 1 Question Answer Type of MTM: Specialty Specialty: Neurology Course of Action: Other Reason for Referral: radicava and Ermaedextimo - Natacha Meade please Comments [facility] Medication Therapy Management department will contact you [...] prescription and non-prescription medications (such as vitamins, xvwh-fka-qoaqpbs medications, and herbals) or a detailed medication [...] (H) Lizandro López MD [address] [place] [address] Referral ID Status Reason Start Date Expiration Date V isits Requested Visits Authorized [id number] Pending Review 10/27/2023 10/26/2024 1 1 Encounter Details Date Type Department Care Team ([facility] st Contact Info) Description 11/02/2023 1:30 PM CDT Office Visit [facility] Neurology Clinic [address] 3rd [place] [phone] Yemi Bacon MD [address] [place] [address] [id number] [place] [address] ALS (amyotrophic lateral sclerosis) (H) (Primary Dx); [...] clinic. I agree with your seeing an inverted block operator. One more blood test; you can have it done at any [facility] clinic. Please call Keli @ [phone] for questions or concerns during regular business hours. For a more efficient way to communicate, use [employer] and address the message to your physician. Remember, MyChart is only read during business hours. Do not leave urgent messages on voicemail or MyChart. If situation is urgent, contact the Neurology Clinic @ [phone] and ask to speak to a Triage [...] clinic. I agree with your seeing an inverted block operator. One more blood test; you can have it done at any [facility] clinic. [MuSK Ab; MG is [...] Description 01/12/2024 9:00 AM CDT Office Visit [facility] Neurology Clinic [address] 3rd [place] [phone] Yemi Bacon MD [address] [place] [address] 02/14/2024 9:00 AM SALES SUPPORT MANAGER Virtual Visit [facility] Multiple Sclerosis [address] [phone] Yemi Bacon MD [address] [place] [address] Natacha Meade, [address] [address] (work) Scheduled Referrals Name Type Priority Associated Diagnoses Orde r Schedule Med Therapy Management Referral Referral Routine: Next available opening ALS (amyotrophic lateral sclerosis) (H) Ordered: 11/04/2023 Adult Genetics & Metabolism Nuts And Bolts Assembler Referral Referral Routine: Next available opening ALS (amyotrophic lateral sclerosis) (H) Expected: 11/04/2023 (Approximate), Expires: 11/03/2024 documented as of this encounter Results * Muscle-Specific Kinase Antibody Screen with Reflex to Titer (11/10/2023 3:59 PM CDT) Muscle-Specific Kinase Antibody Screen <1:10 <1:10 11/14/2023 10:59 PM CDT Service Route [facility] Comment: MuSK Antibody, IgG is not detected. [...] developed and its performance characteristics determined by [facility]. It has not been cleared or approved by the U.S. Food and Drug Administration. This test was performed in a CLIA-certified laboratory and is intended for clinical purposes. Performed By: [facility] [address] [place] [address] Spanish Interpreter: Fidel Cornell MD, PhD CLIA Number: [id number] Blood BLOOD SPECIMEN / Unknown Venipuncture / Unknown 11/10/2023 3:59 PM CDT 11/10/2023 3:59 PM CDT Yemi Bacon MD LAB - BLOOD ORDERABL ES [facility] [employer] [address] [place] [id number], [facility] [phone] documented in this encounter Visit Diagnoses Diagnosis ALS (amyotrophic lateral sclerosis) (H)- Primary Amyotrophic lateral sclerosis Acquired amyotrophic lateral sclerosis (H) documented in this encounter Care Teams Porcelain Waxer Relationship Specialty Start Date End Date Nicanor Thomas MD [facility] [address] [place] [address] PCP - General 07/13/05 Natacha Meade RPH [address] [place] [address] Pharmacist Pharmacist 11/09/23 documented as of this encounter
--- OUTSIDE RECORDS SUMMARY | 2023-11-24 13:35 | XMS_ITS | Encounter Summary ---
Author Organization [place] Address [address] [place] [address]. [place] [address] Care Team Providers Care Cotton Farmer Name Role Phone Nicanor Thomas MD Primary Care Provider Natacha Meade [facility] Unavailable [phone] Reason for Referral * Therapeutic Services (Routine: Next available opening) - Pending Review Specialty Diagnoses / Procedures Referred By Paolo llanos Referred To Contact Diagnoses ALS (amyotrophic lateral sclerosis) (H) Yemi Bacon MD [address] [place] [address] Referral ID Status Reason Start Date Expiration Date V isits Requested Visits Authorized [id number] Pending Review 11/08/2023 11/07/2024 1 1 Question Answer Course of Action: Evaluation and Treatment Speech Treatment Diagnosis: Dysphagia Specialty Services: Per Associated Diagnosis Scheduling Instructions: als clinic Comments als clinic * Occupational Therapy (Routine: Next available opening) - Pending Review Specialty Diagnoses / Procedures Referred By Paolo llanos Referred To Contact Diagnoses ALS (amyotrophic lateral sclerosis) (H) Yemi Bacon MD [address] [place] [address] Referral ID Status Reason Start Date Expiration Date V isits Requested Visits Authorized [id number] Pending Review 11/08/2023 11/07/2024 1 1 Question [...] (amyotrophic lateral sclerosis) (H) Yemi Bacon MD [address] [place] [address] [id number] [place] [address] Referral ID Status Reason Start Date Expiration Date V isits Requested Visits Authorized [id number] Pending Review 11/08/2023 11/07/2024 1 1 Question [...] Care Team (Late Contact Info) Description 11/08/2023 [facility] Neurology Clinic [address] 3rd [place] [address] Irma Batista LPN ALS (amyotrophic lateral sclerosis) [...] 01/12/2024 9:00 AM CDT Office Visit [facility] Neurology Clinic [address] 3rd [place] [phone] Yemi Bacon MD [address] [place] [address] 635325 02/14/2024 9:00 AM WAXED BAG MACHINE OPERATOR Virtual Visit [facility] Multiple Sclerosis Clinic [address] [phone] Yemi Bacon MD [address] [place] [address] Natacha Meade [address] [id number] Scheduled Referrals Name Type Priority Associated Diagnoses Order Schedule Physical Therapy Government Relations Director Referral Referral Routine: Next available opening ALS (amyotrophic lateral sclerosis) (H) Expected: 11/08/2023 (Approximate), Expires: 11/07/2024 Occupational Therapy Government Relations Director Referral Referral Routine: Next available opening ALS (amyotrophic lateral sclerosis) (H) Expected: 11/08/2023 (Approximate), Expires: 11/07/2024 Speech Therapy Government Relations Director Referral Referral Routine: Next available opening ALS (amyotrophic lateral sclerosis) (H) Expected: 11/08/2023 (Approximate), Expires: 11/07/2024 documented as of this encounter Visit Diagnoses Diagnosis ALS (amyotrophic lateral sclerosis) (H)- Primary Amyotrophic lateral sclerosis documented in this encounter Care Teams Cotton Farmer Relationship Specialty Start Date End Date Nicanor Thomas MD [facility] [address] [place] [address] PCP - General 07/13/05 Natacha Meade [facility] [address] [place] [address] Pharmacist Pharmacist 11/09/23 documented as of this encounter
--- OUTSIDE RECORDS SUMMARY | 2023-11-24 13:35 | XMS_ITS | Encounter Summary ---
Author Organization [place] Address [address] [place] [address]. [place] [address] Care Team Providers Care Bi Architect Name Role Phone iNcanor Thomas MD Primary Care Provider Natacha Meade [facility] Unavailable [phone] Reason for Visit * Reason Onset Date Comments Prior Auth - Medication 11/10/2023 Radicava ORS Starter Kit 105MG/5ML suspension ([place] PENDING) Encounter Details Date Type Department Care Team (Late st Contact Info) Description 11/10/2023 Telephone [facility] Neurology Clinic [address]rd [place] [address] Yemi Bacon MD [address] [place] [address] [id number] [place] [address] Prior Auth - Medication (Radicava [...] KIT 105 MG/5ML PO SUSP Insurance Company: [employer] [place] - Pharmacy Filling the Rx: [facility] - [place], [place] - [address] Filling Pharmacy Phone: Filling Pharmacy Fax: Start Date: 11/10/2023 Thank you, Jessica Ariza [facility]-T [facility] Liaison - Cardiology Neurology Multiple Sclerosis [facility] [address] [address] [email or web address] documented in this encounter Plan of Treatment Upcoming Encounters Date Type Department Care Team (Late st Contact Info) Description 01/12/2024 9:00 AM CDT Office Visit [facility] Neurology [address] [phone] Yemi Bacon MD [address] [place] [address] [phone] 02/14/2024 9:00 AM TELECOM ANALYST Virtual Visit [facility] Multiple Sclerosis [address] [phone] Yemi Bacon MD [address] [place] [address] [phone] Nat[address] Meade[address] [phone] documented as of this encounter Visit Diagnoses Not on filedocumented in this encounter Care Teams Bi Architect Relationship Specialty Start Date End Date Nicanor Thomas MD [facility] [address] [place] [address] PCP - General 07/13/05 Natacha Meade RPH [address] [place] [address] Pharmacist Pharmacist 11/09/23 documented as of this encounter
--- OUTSIDE RECORDS SUMMARY | 2023-11-24 13:35 | XMS_ITS | Encounter Summary ---
Author Organization [place] Address [address] [place] [address]. [place] [address] Care Team Providers Care Metal Tile Setter Name Role Phone Nicanor Thomas MD Primary Care Provider Reason for Visit * Reason Onset Date Comments Referral 10/28/2023 ALS Multidiscipl inary Clinic Encounter Details Date Type Department Care Team (Late st Contact Info) Description 10/28/2023 [facility] Neurology Clinic [address] 3rd [place] [address] None Referral (ALS Multidisciplinary Clinic/) [...] Hailey Multani - 10/28/2023 10:44 AM CDT [facility] Call Center Phone Message May a detailed message be left on voicemail: yes Reason for Call: Appointment Intake Referring Provider Name: Lizandro López affiliated with [facility]. Diagnosis and/or Symptoms: ALS Multidisciplinary Clinic Customs Appraiser sending TE per protocols, please review and assist with scheduling Action Taken: Message routed to: [facility] neurology Travel Screening: Not Applicable Date of Service: documented in this encounter Plan of Treatment Upcoming Encounters Date Type Department Care Team (Late st Contact Info) Description 01/12/2024 9:00 AM CDT Office Visit [facility] Neurology Clinic [address] 3rd [place] [phone] Yemi Bacon MD [address] [place] [address] 092165 02/14/2024 9:00 AM BOOTH USHER Virtual Visit [facility] Multiple Sclerosis [address] [phone] Yemi Bacon MD [address] [place] [address] [phone] [address] [phone] documented as of this encounter Visit Diagnoses Not on filedocumented in this encounter Care Teams Metal Tile Setter Relationship Specialty Start Date End Date Nicanor Thomas MD [facility] [address] [address] PCP - General 07/13/05 documented as of this encounter
--- OUTSIDE RECORDS SUMMARY | 2023-11-24 13:35 | XMS_ITS | Encounter Summary ---
Author Organization [place] Address [address] [place] [address]. [place] [address] Care Team Providers Care Weaver Hand Loom Name Role Phone Nicanor Thomas MD Primary Care Provider Reason for Referral * Consultation (Routine) - Pending Review Specialty Diagnoses / Procedures Referred By Paolo llanos Referred To Contact Neurology Diagnoses Acquired amyotrophic lateral sclerosis (H) Lizandro López MD [address] [place] [address] Referral ID Status Reason Start Date Expiration Date V isits Requested Visits Authorized [id number] Pending Review 10/27/2023 10/26/2024 1 1 Question Answer Reason for Referral: Other Scheduling Instructions: [facility] will call you to coordinate your care as prescribed by your provider. If you don't hear from a herbicide service sales representative within 2 business days, please call . My Clinical Question Is: ALS Multidisciplinary Clinic Comments Referral Transcribed by external fax Provider: Lizandro López affiliated with [facility]. VA: No If yes was is the VA Authorization Number: Phone number: [phone] Fax number: [phone] Please be aware that coverage of these services is subject to the terms and limitations of your health insurance plan. Call member services at your health plan with any benefit or coverage questions. [facility] will call you to coordinate your care as prescribed by your provider. If you don't hear from a herbicide service sales representative within 2 business days, please [...] Description 01/12/2024 9:00 AM CDT Office Visit [facility] Neurology Clinic [address]rd [place] [phone] Yemi Bacon MD [address] [place] [address] 02/14/2024 9:00 AM WAREHOUSE TEAM LEADER Virtual Visit [facility] Multiple Sclerosis [address] [phone] Yemi Bacon MD [address] [place] [address] 069395 [address] [address] Scheduled Referrals Name Type Priority Associated Diagnoses Orde r Schedule Adult Neurology First Coat Operator Referral Referral Routine Acquired amyotrophic lateral sclerosis (H) Expected: 10/27/2023 (Approximate), Expires: 10/26/2024 documented as of this encounter Visit Diagnoses Diagnosis Acquired amyotrophic lateral sclerosis (H)- Primary documented in this encounter Care Teams Weaver Hand Loom Relationship Specialty Start Date End Date Nicanor Thomas MD [facility] [address] [place] [address] PCP - General 07/13/05 documented as of this encounter
--- OUTSIDE RECORDS SUMMARY | 2023-11-24 13:35 | XMS_ITS | Encounter Summary ---
Author Organization [place] Address [address] [place] [address]. [place] [address] Care Team Providers Care Estimator Name Role Phone Nicanor Thomas MD Primary Care Provider Natacha Meade [facility] Unavailable [phone] Encounter Details Date Type Department Care Team (Late st Contact Info) Description 11/09/2023 MyC Medical Advice [facility] Multiple Sclerosis Clinic [address] [phone] [address] Social History Tobacco Use Types [...] Description 01/12/2024 9:00 AM CDT Office Visit [facility] Neurology Clinic [address]rd [place] [address] Yemi Bacon MD [address] [address] 02/14/2024 9:00 AM DOCK ATTENDANT Virtual Visit [facility] Multiple Sclerosis [address] [phone] Yemi Bacon MD [address] [place] [address] Natacha Meade [address] [address] documented as of this encounter Visit Diagnoses Not on filedocumented in this encounter Care Teams Estimator Relationship Specialty Start Date End Date Nicanor Thomas MD [facility] [address] [address] PCP - General 07/13/05 Natacha Meade [facility] [address] [place] [address] [phone] Pharmacist Pharmacist 11/09/23 documented as of this encounter
--- OUTSIDE RECORDS SUMMARY | 2023-11-24 13:35 | XMS_ITS | Encounter Summary ---
Author Organization [place] Address [address] [place] [address]. [place] [address] Care Team Providers Care Wharf Worker Name Role Phone Nicanor Thomas MD Primary Care Provider Encounter Details Date Type Department Care Team (Late Contact Info) Description 11/02/2023 1:00 PM CDT Office Visit [facility] Pulmonary Function Testing [address] [phone] Muscle weakness (generalized) Social History [...] CDT Office Visit [facility] Neurology Clinic [address] [phone] Yemi Bacon MD [address] [place] [address] [id number] [place] [address] 02/14/2024 9:00 AM WEB MARKETING MANAGER Virtual Visit [facility] Multiple Sclerosis [address] [phone] Yemi Bacon MD [address] [place] [address] Natacha Meade, [address] [address] documented as of this encounter Procedures Procedure Name Priority Date/Time Associated Diagnosis Comments CO MIP/MEP Routine 11/02/2023 1:02 PM CDT Muscle weakness (generalized) CO RESPIRATORY FLOW VOLUME LOOP Routine 11/02/2023 1:02 PM CDT Muscle weakness (generalized) PFT GENERAL LAB TESTING Routine 11/02/2023 12:50 PM CDT Muscle weakness (generalized) documented in this encounter Results * Pulmonary Function Test (11/02/2023 12:50 PM CDT) FVC-Pred 3.14 L [facility]ZE PFT FVC-Pre 3.29 L [facility]REEZE PFT FVC-%Pred-Pre 104 % [facility]ZE PFT FEV1-Pre 2.67 L [facility]ZE PFT FEV1-%Pred-Pre 107 % [facility]ZE PFT [id number] 80 % [facility]ZE PFT [id number] 81 % BREEZE PFT FEFMax-Pred 6.63 L/sec BREEZE PFT FEFMax-Pre 5.47 L/sec BREEZE PFT FEFMax-%Pred-Pr e 82 % BREEZE PFT [id number] 2.27 L/sec BREEZE PFT [id number] 2.74 L/sec BREEZE PFT FIC3358-%Pred-P re 120 % BREEZE PFT ExpTime-Pre 5.71 sec BREEZE PFT FIFMax-Pre 2.04 L/sec BREEZE PFT MEP-Pre 70 cmH2O BREEZE PFT MIP-Pre -50 cmH2O BREEZE PFT [id number] 81 % BREEZE PFT [id number] 82 % BREEZE PFT 11/02/2023 12:5 0 PM CDT Narrative BREEZE PFT - 11/03/2023 6:37 PM CDT The FVC, FEV1, FEV1/FVC ratio and EXO16-38% are within normal limits. IMPRESSION: Normal Spirometry. MIP and MEP are reduced. ?This interpretation has been electronically signed: ??RIOS CHRISTIANSON 11/03/2023 ??06:09:20 PM? Yemi Bacon MD PFT ORDERABLES BREEZE PFT documented in this encounter Visit Diagnoses Diagnosis Muscle weakness (generalized) documented in this encounter Care Teams Wharf Worker Relationship Specialty Start Date End Date Nicanor Thomas MD [facility] [address] [place] [address] PCP - General 07/13/05 documented as of this encounter
--- OUTSIDE RECORDS SUMMARY | 2023-11-24 13:35 | XMS_ITS | Encounter Summary ---
Author Organization [place] Address [address] [place] [address]. [place] [address] Care Team Providers Care Clinic Clerk Name Role Phone Nicanor Thomas MD Primary Care Provider Natacha Meade [facility] Unavailable [phone] Reason for Visit * Reason Comments Medication Therapy Management * Med Therapy Management (Routine: Next available opening) - Closed Specialty Diagnoses / Procedures Referred By Contac t Referred To Contact Pharmacist Diagnoses ALS (amyotrophic lateral sclerosis) (H) Yemi Bacon MD [address] [place] [id number] Referral ID Status Reason Start Date Expiration Date Visits Re quested Visits Authorized [id number] Closed 11/04/2023 11/03/2024 1 1 Encounter Details Date Type Department Care Team (Late st Contact Info) Description 11/09/2023 9:00 AM CDT Virtual Visit [facility] Multiple Sclerosis [address] [phone] Yemi Bacon MD [address] [place] [address] Natacha Meade, [address] [phone] ALS (amyotrophic lateral sclerosis) (H) (Primary Dx); [...] Patient Instructions * Patient Instructions* Natacha Meade, [facility] - 11/09/2023 9:00 AM CDT Recommendations from [...] orders have not already been sent to [facility] and [facility], we will get these faxed over. Today [...] to take Radicava can be found here: [email or web address] Radicava will be filled at [place] [facility] (unless your insurance requires a [...] receive an email or text message from [employer] with a link to a survey related to your ???clinical pharmacist. To schedule another MTM appointment, please call the clinic directly or you may call the MTM scheduling line at [phone] or toll-free at . My Clinical Pharmacist's contact information: Please feel free to contact me with any questions or concerns you have. Natacha Meade, PharmD, [facility] Medication Therapy Management Pharmacist [facility] Neurology documented in this encounter [...] for Radicava started and send prescription to [place] [facility] unless insurance requires different pharmacy. [...] orders have not already been sent to [facility] and [facility], we will get these faxed over. Today [...] to take Radicava can be found here: [email or web address] Radicava will be filled at [place] [facility] (unless your insurance requires a [...] and requests to have these completed at [facility] near her home. She will [...] summary of these recommendations was sent via [employer]. Natacha Meade, PharmD, BCACP Medication Therapy Management Pharmacist [facility] Telemedicine Visit Details Type of service: Telephone visit Start Time: 9:00 AM End Time: 9:41 AM Medication Therapy Recommendations No medication therapy recommendations to display documented in this encounter Plan of Treatment Upcoming Encounters Date Type Department Care Team (Late st Contact Info) Description 01/12/2024 9:00 AM CDT Office Visit [facility] [address] [place] [address] Yemi Bacon MD [address] [place] [phone] 02/14/2024 9:00 AM HYPERION DEVELOPER Virtual Visit [facility] [address] [address] Yemi Bacon MD [address] [place] [address] Natacha Meade RPH [address] [place] [address] [phone] Scheduled Referrals Name Type Priority Associated Diagnoses [...] menopause documented in this encounter Care Teams Clinic Clerk Relationship Specialty Start Date End Date Nicanor Thomas MD [facility] [address] [address] PCP - General 07/13/05 Natacha Meade RPH [address] [place] [address] [phone] Pharmacist Pharmacist 11/09/23 documented as of this encounter
--- OUTSIDE RECORDS SUMMARY | 2023-11-24 13:35 | XMS_ITS | Encounter Summary ---
Author Organization [facility] Address [address] [place] [address]. [place] [address] Care Team Providers Care General Intern Name Role Phone Nicanor Thomas MD Primary Care Provider Natacha Meade [facility] Unavailable [phone] Reason for Visit * Reason Onset Date Comments Refill Request 11/10/2023 Encounter Details Date Type Department Care Team (Late st Contact Info) Description 11/09/2023 Refill [facility] [address] [address] Natacha Meade, [address] [phone] Refill Request Social History Tobacco Use Types [...] and sign. Prescriptions will be sent to [facility] unless insurance requires alternate pharmacy. documented in this encounter Plan of Treatment Upcoming Encounters Date Type Department Care Team (Late st Contact Info) Description 01/12/2024 9:00 AM CDT Office Visit [facility] Neu[facility] [address] [place] [phone] Yemi Bacon MD [address] [place] [phone] 02/14/2024 9:00 AM DRILLER PORTABLE Virtual Visit [facility] Multiple Sclerosis [facility] [address] [phone] Yemi Bacon MD [address] [place] [address] Natacha Meade RPH [address] [place] [phone] documented as of this encounter Visit Diagnoses Diagnosis ALS (amyotrophic lateral sclerosis) (H)- Primary Amyotrophic lateral sclerosis documented in this encounter Care Teams General Intern Relationship Specialty Start Date End Date Nicanor Thomas MD [facility] [address] [place] [address] PCP - General 07/13/[address] [facility] [address] [place] [phone] Pharmacist Pharmacist 11/09/23 documented as of this encounter
--- OUTSIDE RECORDS SUMMARY | 2023-11-24 13:36 | XMS_ITS | Encounter Summary ---
Author Organization [facility] Address [address] [place] [address] Care Team Providers Care Client Services Assistant Name Role Phone Unavailable Primary Care Provider Unavailabl e Reason for Visit * Reason Onset Date Comments Med Question 11/07/2023 Encounter Details Date Type Department Care Team (Latest Contact Info) Description 11/07/2023 Clinical Communication Department of Cardiovascular Diseases in [address] [phone] Lizandro López M.D. [address] [place] [phone] Med Question Social History Tobacco Use Types Packs/Day Years Used Date Smoking Tobacco: Never Smokeless Tobacco: Never Alcohol Use Standard Drinks/Week Comments Yes 5 (1 standard drink = 0.6 oz pur e alcohol) [facility] Utilities Answer Date Recorded In the past 12 months has [email or web address], gas, oil, or water [employer] threatened to shut off services in your [...]
--- OUTSIDE RECORDS SUMMARY | 2023-11-24 13:36 | XMS_ITS | Encounter Summary ---
Author Organization [facility] Address [address] [place] [address] Care Team Providers Care Woods Boss Name Role Phone Unavailable Primary Care Provider Unavailabl e Reason for Visit * Reason Onset Date Comments Follow-up Orders 10/18/2023 MRI in [facility] Encounter Details Date Type Department Care Team (Latest Contact Info) Description 10/18/2023 Clinical Communication Department of Neurology in [address] [phone] Lizandro López M.D. [address] [place] [phone] Follow-up Orders (MRI in [place] ) Social History Tobacco Use Types Packs/Day Years Used Date Smoking Tobacco: Never Smokeless Tobacco: Never Alcohol Use Standard Drinks/Week Comments Yes 5 (1 standard drink = 0.6 oz pur e alcohol) [facility] Utilities Answer Date Recorded In the past 12 months has [employer], gas, oil, or water [employer] threatened to shut off services in your [...] living situation today? I have a [facility] place to live 10/22/2023 Sex and Gender [...]
--- OUTSIDE RECORDS SUMMARY | 2023-11-24 13:36 | XMS_ITS | Referral Summary ---
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 For routine questions regarding patient records, call [phone] during business hours, M-F 8:00 AM - 5:00 PM Central Time. Record requests for emergency care only can be directed to [phone] at any time.[facility] Encounters Date Type Department Care Team Description 11/15/2023 Clinical Communication Department of Neurology in [address] [phone] Tyson Carreon M.D. Letter to support Out of Network ([facility]) 11/08/2023 Clinical Communication Department of Neurology in [address] [phone] Tyson Carreon M.D. Communication 11/07/2023 Clinical Communication Department of Cardiovascular Diseases in [address] [phone] Tyson Carreon M.D. Med Question 10/28/2023 Orders Only Pharmacy Prior Auth RO [phone] Chel Snyder 10/27/2023 Orders Only Pharmacy Prior Auth RO [phone] Margy Teran 10/26/2023 Clinical Communication Department of Neurology in [place], [place] [address] [place] [address] Tyson Carreon M.D. Rx Prior Authorization ([facility] ) 10/25/2023 3:30 PM CDT Office Visit Department of Neurology in [address] [phone] Tyson Carreon M.D. Sclerosis Lateral Amyotrophic (HCC) (Primary Dx) Discharge Disposition: Home or Self Care 10/19/2023 7:11 AM CDT - 10/19/2023 11:59 PM CDT Hospital Encounter Department of Neurology in [place], [place] [address] [place] [address] Tyson Carreon M.D. Other Motor Neuron Disease (HCC) Discharge Disposition: Home or Self Care 10/18/2023 Clinical Communication Department of Neurology in [address] [phone] Tyson Carreon M.D. Follow-up Orders (MRI in [place] ) 10/17/2023 2:11 PM CDT - 10/17/2023 11:59 PM CDT Hospital Encounter Department of Laboratory Medicine in [address] [phone] Tyson Carreon M.D. Other Motor Neuron Disease (HCC) Discharge Disposition: Home or Self Care 10/17/2023 1:00 PM CDT Office Visit Department of Neurology in [address] [phone] Tyson Carreon M.D. Sclerosis Lateral Amyotrophic (HCC) (Primary Dx); Other Motor Neuron Disease (HCC); Anterior Horn Cell Disease (HCC) Discharge Disposition: Home or Self Care 10/12/2023 Clinical Communication Department of Neurology in [address] [phone] Tyson Carreon M.D. Order Request (F/u clinical [...] drink = 0.6 oz pur e alcohol) [facility] Utilities Answer Date Recorded [...] your living situation today? I have a [facility] place to live 10/22/2023 Sex and [...] ? Final Report Study Number: 1 EMG Java J2Ee Application Developer: Kylie Alcocer 127 or [phone] Referred by: TYSON CARREON (127 or [phone]) Referred for: Query bulbar onset ALS Referral [...] and cervical myotomes. Alberto Alcocer (127 or [phone])/ACV NERVE CONDUCTIONS ??Record Rep ?? Normal ??Normal [...] Electromyography Final Report Study Number: 1 EMG Java J2E[employer] Application Developer: Kylie Alcocer 127 or [phone] Referred by: TYSON CARREON (127 or [phone]) Referred for: Query bulbar onset ALS Referral [...] and cervical myotomes. Alberto Alcocer (127 or [phone])/ACV NERVE CONDUCTIONS Record Rep Normal Normal Distal [...] - B LOOD ORDERABLES Performing Organization Address City/[facility]/ZIP Co de Phone Number [facility] [address] [place] [address], [facility] E[facility] [place] [address] [place] [address] * (ABNORMAL) Neurofilament Light Chain (NfL) (10/17/2023 2:49 PM CDT) Pathologist [facility] Neurofilament Light Chain, P 70.7(H) <=25.4 pg/mL 10/19/2023 3:29 PM CDT [facility] Comment: ----ADDITIONAL INFORMATION---- The testing method is a digital immunoassay for the quantitative determination of NfL in plasma manufactured by [employer] and performed on the AisleBuyer-X analyzer. Values obtained with different methods may be different and cannot be used interchangeably. This test was developed and its performance characteristics determined by [facility] in a manner consistent with CLIA requirements. This test has not been cleared or approved by the U.S. Food and Drug Administration. Blood (Blood, Venous) 10/17/2023 2:49 PM CDT 10/18/2023 8:38 AM CDT Tyson Carreon M.D. LAB BLOOD NON ADD-ON Performing Organization Address City/[facility] Co de Phone Number [facility] [address] [place] [address] [facility] [address] [place] [address] [place] [address] * Myelopathy, Autoimmune/Paraneoplastic Evaluation (10/17/2023 2:46 PM CDT) Pathologist [facility] Autoimmune Myelopathy Interp, S see below 10/24/2023 [...] developed and its performance characteristics determined by [facility] in a manner consistent with CLIA requirements. This test has not been cleared or approved by the U.S. Food and Drug Administration. AGNA-1, S Negative Negative 10/24/2023 5:13 PM CDT DTL Comment: ----ADDITIONAL INFORMATION---- This test was developed and its performance characteristics determined by [facility] in a manner consistent with CLIA requirements. This test has not been cleared or approved by the U.S. Food and Drug Administration. NAEEM-1, S Negative Negative 10/24/2023 5:13 PM CDT DTL Comment: ----ADDITIONAL INFORMATION---- This test was developed and its performance characteristics determined by [facility] in a manner consistent with CLIA requirements. This test has not been cleared or approved by the U.S. Food and Drug Administration. NAEEM-2, S Negative Negative 10/24/2023 5:13 PM CDT DTL Comment: ----ADDITIONAL INFORMATION---- This test was developed and its performance characteristics determined by [facility] in a manner consistent with CLIA requirements. This test has not been cleared or approved by the U.S. Food and Drug Administration. NAEEM-3, S Negative Negative 10/24/2023 5:13 PM CDT DTL Comment: ----ADDITIONAL INFORMATION---- This test was developed and its performance characteristics determined by [facility] in a manner consistent with CLIA requirements. This test has not been cleared or approved by the U.S. Food and Drug Administration. AP3B2 IFA, S Negative Negative 10/24/2023 5:13 PM CDT DTL Comment: ----ADDITIONAL INFORMATION---- This test was developed and its performance characteristics determined by [facility] in a manner consistent with CLIA requirements. This test has not been cleared or approved by the U.S. Food and Drug Administration. CRMP-5-IgG Western Blot, S Negative Negative 10/24/2023 5:13 PM CDT DTL Comment: ----ADDITIONAL INFORMATION---- This test was developed and its performance characteristics determined by [facility] in a manner consistent with CLIA requirements. This test has not been cleared or approved by the U.S. Food and Drug Administration. DPPX Ab CBA, S Negative Negative 10/24/2023 5:13 PM CDT DTL Comment: ----ADDITIONAL INFORMATION---- This test was developed and its performance characteristics determined by [facility] in a manner consistent with CLIA requirements. This test has not been cleared or approved by the U.S. Food and Drug Administration. JOSE-B-R Ab CBA, S Negative Negative 2023 5:13 PM CDT DTL Comment: ----ADDITIONAL INFORMATION---- This test was developed and its performance characteristics determined by [facility] in a manner consistent with CLIA requirements. This test has not been cleared or approved by the U.S. Food and Drug Administration. GAD65 Ab Assay, S 0.00 <=0.02 nmol/L 10/24/2023 5:13 PM CDT DTL Comment: ----ADDITIONAL INFORMATION---- This test was developed and its performance characteristics determined by [facility] in a manner consistent with CLIA requirements. This test has not been cleared or approved by the U.S. Food and Drug Administration. GFAP IFA, S Negative Negative 10/24/2023 5:13 PM CDT DTL Comment: ----ADDITIONAL INFORMATION---- This test was developed and its performance characteristics determined by [facility] in a manner consistent with CLIA requirements. This test has not been cleared or approved by the U.S. Food and Drug Administration. mGluR1 Ab IFA, S Negative Negative 10/24/19 24 5:13 PM CDT DTL Comment: ----ADDITIONAL INFORMATION---- This test was developed and its performance characteristics determined by [facility] in a manner consistent with CLIA requirements. This test has not been cleared or approved by the U.S. Food and Drug Administration. MOG FACS, S Negative Negative 10/24/2023 5:13 PM CDT DTL Comment: ----ADDITIONAL INFORMATION---- This test was developed and its performance characteristics determined by [facility] in a manner consistent with CLIA requirements. This test has not been cleared or approved by the U.S. Food and Drug Administration. NIF IFA, S Negative Negative 10/24/2023 5:13 PM CDT DTL Comment: ----ADDITIONAL INFORMATION---- This test was developed and its performance characteristics determined by [facility] in a manner consistent with CLIA requirements. This test has not been cleared or approved by the U.S. Food and Drug Administration. NMO/AQP4 FACS, S Negative Negative 10/24/19 24 5:13 PM CDT DTL Comment: ----ADDITIONAL INFORMATION---- This test was developed and its performance characteristics determined by [facility] in a manner consistent with CLIA requirements. This test has not been cleared or approved by the U.S. Food and Drug Administration. Neurochondrin IFA, S Negative Negative 10/24/2023 5:13 PM CDT DTL Comment: ----ADDITIONAL INFORMATION---- This test was developed and its performance characteristics determined by [facility] in a manner consistent with CLIA requirements. This test has not been cleared or approved by the U.S. Food and Drug Administration. ASPHALT SPREADER-1, S Negative Negative 10/24/2023 5:13 PM CDT DTL Comment: ----ADDITIONAL INFORMATION---- This test was developed and its performance characteristics determined by [facility] in a manner consistent with CLIA requirements. This test has not been cleared or approved by the U.S. Food and Drug Administration. ASPHALT SPREADER-2, S Negative Negative 10/24/2023 5:13 PM CDT DTL Comment: ----ADDITIONAL INFORMATION---- This test was developed and its performance characteristics determined by [facility] in a manner consistent with CLIA requirements. This test has not been cleared or approved by the U.S. Food and Drug Administration. Septin-7 IFA, S Negative Negative 4 5:13 PM CDT DTL Comment: ----ADDITIONAL INFORMATION---- This test was developed and its performance characteristics determined by [facility] in a manner consistent with CLIA requirements. This test has not been cleared or approved by the U.S. Food and Drug Administration. TRIM46 Ab IFA, S Negative Negative 10/24/19 5:13 PM CDT DTL Comment: ----ADDITIONAL INFORMATION---- This test was developed and its performance characteristics determined by [facility] in a manner consistent with CLIA requirements. This test has not been cleared or approved by the U.S. Food and Drug Administration. Blood (Blood, Venous) 10/17/2023 2:46 PM CDT 10/18/2023 10:15 AM CDT Tyson Carreon M.D. LAB BLOOD ADD-ON [facility] [address] [place] [address], [facility] DTL 200 [facility] [address] [place] [address] * Ganglioside Antibody Panel (10/17/2023 2:46 PM CDT) IgG Monos. GM1 Negative Negative 10/25/2023 2:11 PM CDT DTL Comment: ----ADDITIONAL INFORMATION---- This test was developed and its performance characteristics determined by [facility] in a manner consistent with CLIA requirements. This test has not been cleared or approved by the U.S. Food and Drug Administration. IgM Monos. GM1 Negative Negative 10/25/2023 2:11 PM CDT DTL Comment: ----ADDITIONAL INFORMATION---- This test was developed and its performance characteristics determined by [facility] in a manner consistent with CLIA requirements. This test has not been cleared or approved by the U.S. Food and Drug Administration. IgG Asialo. GM1 Negative Negative 4 2:11 PM CDT DTL Comment: ----ADDITIONAL INFORMATION---- This test was developed and its performance characteristics determined by [facility] in a manner consistent with CLIA requirements. This test has not been cleared or approved by the U.S. Food and Drug Administration. IgM Asialo. GM1 Negative Negative 4 2:11 PM CDT DTL Comment: ----ADDITIONAL INFORMATION---- This test was developed and its performance characteristics determined by [facility] in a manner consistent with CLIA requirements. This test has not been cleared or approved by the U.S. Food and Drug Administration. IgG Disialo. GD1b Negative Negative 024 2:11 PM CDT DTL Comment: ----ADDITIONAL INFORMATION---- This test was developed and its performance characteristics determined by [facility] in a manner consistent with CLIA requirements. This test has not been cleared or approved by the U.S. Food and Drug Administration. IgM Disialo. GD1b Negative Negative 024 2:11 PM CDT DTL Comment: ----ADDITIONAL INFORMATION---- This test was developed and its performance characteristics determined by [facility] in a manner consistent with CLIA requirements. This test has not been cleared or approved by the U.S. Food and Drug Administration. Blood (Blood, Venous) 10/17/2023 2:46 PM CDT 10/18/2023 10:15 AM CDT Tyson Carreon M.D. LAB BLOOD NON ADD-ON [facility] [address] [place] [address], [facility] DTL [address] [place] [address] * Quantitative M-protein Study (10/17/2023 2:43 PM CDT) Pathologist [facility] Immunoglobulin A (IgA), S 87 61 - [...] developed and its performance characteristics determined by [facility] in a manner consistent with CLIA requirements. This test has not been cleared or approved by the U.S. Food and Drug Administration. Blood (Blood, Venous) 10/17/2023 2:43 PM CDT 10/18/2023 6:28 AM CDT Narrative [facility] - 10/19/2023 8:50 AM CDT Specimen Information: Specimen ID: [id number] Specimen Type: Blood Specimen Collection Start Date: 10/17/2023 11:00 PM Specimen Received Date: 10/18/2023 ??6:28 AM Specimen ID: [id number] Specimen Type: Blood Specimen Collection Start Date: 10/17/2023 ??2:43 PM Specimen Received Date: 10/18/2023 ??7:09 AM Tyson Carreon M.D. LAB BLOOD ADD-ON [facility] [address] [place] [address] [facility] [address] [place] [address] [facility] [place] [address] * T4 (Thyroxine), Free, Serum (10/17/2023 2:43 PM CDT) T4 (Thyroxine), Free, S 0.9 0.9 - 1.7 ng/dL 10/17/2023 3:57 PM CDT [facility] Blood 10/17/2023 2:43 PM CDT 10/17/2023 2:49 PM CDT Tyson Carreon M.D. LAB BLOOD ADD-ON [facility] [address] [place] [address], [facility] [place] [address] [place] [phone] * Methylmalonic Acid (MMA), Quantitative, Serum (10/17/2023 2:43 PM CDT) Methylmalonic Acid, QN, S 0.22 <=0.40 nmol/mL 10/20/2023 8:15 AM CDT DTL Comment: No cellular B-12 deficiency. ----ADDITIONAL INFORMATION---- This test was developed and its performance characteristics determined by [facility] in a manner consistent with CLIA requirements. This test has not been cleared or approved by the U.S. Food and Drug Administration. Blood 10/17/2023 2:43 PM CDT 10/18/2023 1:29 PM CDT Tyson Carreon M.D. LAB BLOOD NON ADD-ON Performing Organization Address City/[facility]/ZIP Co de Phone Number [facility] [address] [place] [address], [facility] DTL [address] [facility] [address] [place] [address] * Antinuclear Ab [place], S (10/17/2023 2:43 PM CDT) Antinuclear Ab Screen by IFA, S Negative Negative 10/19/2023 8:45 AM CDT ECLR Comment:No titer performed, COURT screen is negative. Blood (Blood, Venous) 10/17/2023 2:43 PM CDT 10/17/2023 9:02 PM CDT Tyson Carreon M.D. LAB BLOOD NON ADD-ON Performing Organization Address City/[facility]/ZIP Co de Phone Number [facility] [address] [place] [address], [facility] ECLR [address] [place] [phone] * (ABNORMAL) Thyroid Function [place] (10/17/2023 2:43 PM CDT) TSH, Sensitive 10.3(H) 0.3 - 4.2 mIU/L 10/17/2023 3:35 PM CDT [facility] Blood (Blood, Venous) 10/17/2023 2:43 PM CDT 10/17/2023 2:49 PM CDT Tyson Carreon M.D. LAB BLOOD ADD-ON [facility] [address], [place] [address], [facility] [place] [address], [place] [address] * Pernicious Anemia [place] (10/17/2023 2:43 PM CDT) Pathologist [facility] Vitamin B12 Assay, S 248 180 - 914 ng/L 10/18/2023 11:55 AM CDT [facility] Comment:B-12 <400; MMA test was performed. Blood (Blood, Venous) 10/17/2023 2:43 PM CDT 10/18/2023 8:35 AM CDT Narrative [facility] - 10/18/2023 11:55 AM CDT Specimen Information: Specimen ID: [id number] Specimen Type: Blood Specimen Collection Start Date: 10/17/2023 ??2:43 PM Specimen Received Date: 10/18/2023 ??8:35 AM Specimen ID: [id number] Specimen Type: Blood Specimen Collection Start Date: 10/17/2023 ??2:43 PM Specimen Received Date: 10/18/2023 ??8:52 AM Tyson Carreon M.D. LAB BLOOD NON ADD-ON [facility] [address] [place] [address] [place] [address] [place] [address] * Hexosaminidase A and Total Hexosaminidase, Leukocytes (10/17/2023 2:43 PM CDT) Pathologist [facility] Hexosaminidase Total, WBC 23.9 16.4 - 36.2 [...] test MUGS). Please contact the [employer] store consultant or genetic counselor medication assistant ( ) if you have any questions. 10/21/2023 2:17 PM CDT DTL Comment: ----ADDITIONAL INFORMATION---- Heat Inactivation, Fluorometric This test was developed and its performance characteristics determined by [facility] in a manner consistent with CLIA requirements. This test has not been cleared or approved by the U.S. Food and Drug Administration. Blood (Blood, Peripheral Draw) 10/17/2023 2:43 PM CDT 10/18/2023 7:40 AM CDT Tyson Carreon M.D. LAB GENETIC TESTING [facility] [address] [place] [address], [facility] DT [address] [facility] [address] [place] [address] * Cryopreservation for Molecular Genetic Studies (10/17/2023 [...] is not a DNA banking service. If mcc, guaranteed specimen storage is required, DNA banking [...] M.D. LAB GENETIC TESTING Performing Organization Address City/[facility]/ZIP Co de Phone Number [facility] [address] [place] [address], [facility] DTL [address] [place] [address] * (ABNORMAL) Thyroperoxidase (TPO) Antibodies (10/17/2023 2:43 PM CDT) Thyroperoxidase Ab, S 125.9(H) <34.0 IU/mL 10/18/2023 3:45 AM CDT ECLR Blood 10/17/2023 2:43 PM CDT 10/17/2023 9:04 PM CDT Tyson Carreon M.D. LAB BLOOD ADD-ON [facility] [address] [place] [address], [facility] E[facility] [place] [address] [place] [address] * Copper (10/17/2023 2:43 PM CDT) Copper, S 115 77 - 206 mcg/dL 10/18/2023 10:42 AM CDT [facility] Comment: ----ADDITIONAL INFORMATION---- This test was developed and its performance characteristics determined by [facility] in a manner consistent with CLIA requirements. This test has not been cleared or approved by the U.S. Food and Drug Administration. Blood (Blood, Venous) 10/17/2023 2:43 PM CDT 10/17/2023 9:48 PM CDT Tyson Carreon M.D. LAB BLOOD NON ADD-ON [facility] [address] [place] [address] [facility] [address] [place] [address] * Phosphorus Inorganic (10/17/2023 2:43 PM CDT) Pathologist [facility] Phosphorus (Inorganic), P 3.0 2.5 - 4.5 mg/dL 10/17/2023 3:17 PM CDT [facility] Blood (Blood, Venous) 10/17/2023 2:43 PM CDT 10/17/2023 2:49 PM CDT Tyson Carreon M.D. LAB BLOOD ADD-ON Performing Organization Address City/[facility]/ZIP Co de Phone Number [facility] [address] [place] [address], [facility] [place] [address] [place] [address] * (ABNORMAL) Parathyroid Hormone (PTH) (10/17/2023 2:43 PM CDT) Parathyroid Hormone (PTH), S 74(H) 15 - 65 pg/mL 10/17/2023 3:27 PM CDT [facility] Comment: Biotin has been identified by the user experience designer as a potential interfering substance. Higher concentrations of biotin may be found in multivitamins, hair/nail supplements, and workout supplements. If the result does not match clinical observations, repeat testing after patient refrains from the use of supplements for at least 12 hours. Blood (Blood, Venous) 10/17/2023 2:43 PM CDT 10/17/2023 2:49 PM CDT Tyson Carreon M.D. LAB BLOOD ADD-ON Performing Organization Address City/[facility] Co de Phone Number [facility] [address] [place] [address], [facility] [place] [address] * Creatinine with Estimated GFR (10/17/2023 2:43 PM CDT) Creatinine 0.78 0.59 - 1.04 mg/dL 10/17/2023 3:17 PM CDT [facility] Estimated GFR (eGFR) 87 >=60 mL/min/BSA 10/17/2023 3:17 PM CDT [facility] Comment: Estimated GFR calculated using the 2020 CKD_EPI creatinine equation. Blood (Blood, Venous) 10/17/2023 2:43 PM CDT 10/17/2023 2:49 PM CDT Tyson Carreon M.D. LAB BLOOD ADD-ON Performing Organization Address [facility] Co de Phone Number [facility] [address] [address], [facility] [place] [address] [place] [phone] * CK (Creatine Kinase) (10/17/2023 2:43 PM CDT) Creatine Kinase, P 163 26 - 192 U/L 10/17/2023 3:17 PM CDT [facility] Blood (Blood, Venous) 10/17/2023 2:43 PM CDT 10/17/2023 2:49 PM CDT Tyson Carreon M.D. LAB BLOOD ADD-ON Performing Organization Address City/[facility] Co de Phone Number [facility] [address] [place] [address], [facility] in [address] [address] * Calcium, Total (10/17/2023 2:43 PM CDT) Calcium, Total, P 9.3 8.6 - 10.0 mg/dL 10/17/2023 3:17 PM CDT [facility] Blood (Blood, Venous) 10/17/2023 2:43 PM CDT 10/17/2023 2:49 PM CDT Tyson Carreon M.D. LAB BLOOD ADD-ON Performing Organization Address [facility] de Phone Number [facility] [place] [address], [facility] in [address] [id number] * Vitamin E Level (10/17/2023 2:39 PM CDT) A-Tocopherol, Vitamin E 13.6 5.5 - 17.0 mg/L 10/19/2023 8:25 AM CDT [facility] Comment: ----ADDITIONAL INFORMATION---- This test was developed and its performance characteristics determined by [facility] in a manner consistent with CLIA requirements. This test has not been cleared or approved by the U.S. Food and Drug Administration. Blood (Blood, Venous) 10/17/2023 2:39 PM CDT 10/18/2023 11:23 AM CDT Tyson Carreon M.D. LAB BLOOD NON ADD-ON Performing Organization Address City/[facility]/ZIP Co de Phone Number [facility] [place] [address] [place] [id number] [facility] [address] [place] [phone] from Last 3 [place] [address]
--- OUTSIDE RECORDS SUMMARY | 2023-11-24 13:36 | XMS_ITS | Encounter Summary ---
Author Organization [facility] Address [address] [place] [address] Care Team Providers Care Numberer And Wirer Name Role Phone Unavailable Primary Care Provider Unavailabl e Reason for Referral * MRI/CAT/PET Scan (Routine) - Pending Review Specialty Diagnoses / Procedures Referred By Contac t Referred To Contact Radiology Diagnoses Other Motor Neuron Disease (HCC) Procedures MR Cervical Spine without and with IV Contrast Tyson Carreon M.D. [address] [place] [address] [facility] Referral ID Status Reason Start Date Expiration Date V isits Requested Visits Authorized [id number] Pending Review 10/18/2023 10/17/2024 1 1 * MRI/CAT/PET Scan (Routine) - Pending Review Specialty Diagnoses / Procedures Referred By Contac t Referred To Contact Radiology Diagnoses Anterior Horn Cell Disease (HCC) Procedures MR Brain without and with IV Contrast Tyson Carreon M.D. [address] [place] [address] [facility] Referral ID Status Reason Start Date Expiration Date V isits Requested Visits Authorized [id number] Pending Review 10/18/2023 10/17/2024 1 1 * Outpatient (Routine) - Closed Specialty Diagnoses / Procedures Referred By Contac t Referred To Contact Neurology Tyson Carreon M.D. [address] [place] [address] [facility] Referral ID Status Reason Start Date Expiration Date Visits Re quested Visits Authorized [id number] Closed 10/17/2023 04/17/2025 1 1 * Speech Pathology (Routine) - Authorized Specialty Diagnoses / Procedures Referred By Contac t Referred To Contact Diagnoses Other Motor Neuron Disease (HCC) Procedures FIRE OBSERVER Speech language evaluate and treat Tyson Carreon M.D. [address] [place] [address] [facility] Referral ID Status Reason Start Date Expiration Date V isits Requested Visits Authorized [id number] Authorized 10/17/2023 10/16/2024 1 1 * Outpatient (Routine) - Closed Specialty Diagnoses / Procedures Referred By Contac t Referred To Contact Diagnoses Other Motor Neuron Disease (HCC) Procedures EMG Tyson Carreon M.D. [address] [place] [address] [facility] Referral ID Status Reason Start Date Expiration Date Visits Re quested Visits Authorized [id number] Closed 10/17/2023 10/16/2024 1 1 Reason for Visit * Reason Comments Dysphagia * Outpatient (Routine) - Closed Specialty Diagnoses / Procedures Referred By Contac t Referred To Contact Neurology Tyson Carreon M.D. [address] [place] [phone] [facility] Referral ID Status Reason Start Date Expiration Date Visits Re quested Visits Authorized [id number] Closed 10/12/2023 04/12/2025 1 1 Encounter Details Date Type Department Care Team ([facility] st Contact Info) Description 10/17/2023 1:00 PM CDT Office Visit Department of Neurology in [place], [place] [address] [place] [phone] Tyson Carreon M.D. [address] [place] [address] Sclerosis Lateral Amyotrophic (HCC) (Primary Dx); Other Motor Neuron Disease (HCC); Anterior Horn Cell Disease (HCC) Discharge Disposition: Home or Self Care Social History Tobacco Use Types Packs/Day Years Used Date Smoking Tobacco: Never Smokeless Tobacco: Never Alcohol Use Standard Drinks/Week Comments Yes 5 (1 standard drink = 0.6 oz pur e alcohol) [facility] Utilities Answer Date Recorded In the past [...] your living situation today? 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 She [...] A and Total Hexosaminidase, Leukocytes Antinuclear Ab Wildrose, S Quantitative M-protein Study Parathyroid Hormone (PTH) Calcium, Total Phosphorus Inorganic Creatinine with Estimated GFR Vitamin E Level Ganglioside Antibody Panel Pernicious Anemia Wildrose Thyroid Function Wildrose Cryopreservation for Molecular Genetic Studies Neurology office visit (clinic) FIRE OBSERVER Speech language evaluate and treat EMG Pulmonary [...] ? Final Report Study Number: 1 EMG Reclamation Kettle Tender: Kylie Alcocer 127 or [phone] Referred by: TYSON CARREON (127 or [phone]) Referred for: Query bulbar onset ALS Referral [...] and cervical myotomes. Alberto Alcocer (127 or [phone])/ACV NERVE CONDUCTIONS ??Record Rep ?? Normal ??Normal [...] Electromyography Final Report Study Number: 1 EMG Reclamation Kettle Tender: Kylie Alcocer 127 or [phone] Referred by: TYSON CARREON (127 or [phone]) Referred for: Query bulbar onset ALS Referral [...] and cervical myotomes. Alberto Alcocer (127 or [phone])/ACV NERVE CONDUCTIONS Record Rep Normal Normal Distal [...] - B LOOD ORDERABLES Performing Organization Address [facility] de Phone Number [facility] [address] [place] [address] ECLR [facility] [place] [address] * (ABNORMAL) Neurofilament Light Chain (NfL) (10/17/2023 2:49 PM CDT) Neurofilament Light Chain, P 70.7(H) <=25.4 pg/mL 10/19/2023 3:29 PM CDT [facility] Comment: ----ADDITIONAL INFORMATION---- The testing method is a digital immunoassay for the quantitative determination of NfL in plasma manufactured by [employer] and performed on the [employer] HD-X analyzer. Values obtained with different methods may be different and cannot be used interchangeably. This test was developed and its performance characteristics determined by [facility] in a manner consistent with CLIA requirements. This test has not been cleared or approved by the U.S. Food and Drug Administration. Blood (Blood, Venous) 10/17/2023 2:49 PM CDT 10/18/2023 8:38 AM CDT Tyson Carreon M.D. LAB BLOOD NON ADD-ON [facility] [address] [place] [address] [facility] [address] [place] [address] * Ganglioside Antibody Panel (10/17/2023 2:46 PM CDT) IgG Monos. GM1 Negative Negative 10/25/2023 2:11 PM CDT [facility] Comment: ----ADDITIONAL INFORMATION---- This test was developed and its performance characteristics determined by [facility] in a manner consistent with CLIA requirements. This test has not been cleared or approved by the U.S. Food and Drug Administration. IgM Monos. GM1 Negative Negative 10/25/2023 2:11 PM CDT [facility] Comment: ----ADDITIONAL INFORMATION---- This test was developed and its performance characteristics determined by [facility] in a manner consistent with CLIA requirements. This test has not been cleared or approved by the U.S. Food and Drug Administration. IgG Asialo. GM1 Negative Negative 4 2:11 PM CDT [facility] Comment: ----ADDITIONAL INFORMATION---- This test was developed and its performance characteristics determined by [facility] in a manner consistent with CLIA requirements. This test has not been cleared or approved by the U.S. Food and Drug Administration. IgM Asialo. GM1 Negative Negative 4 2:11 PM CDT [facility] Comment: ----ADDITIONAL INFORMATION---- This test was developed and its performance characteristics determined by [facility] in a manner consistent with CLIA requirements. This test has not been cleared or approved by the U.S. Food and Drug Administration. IgG Disialo. GD1b Negative Negative 024 2:11 PM CDT [facility]TL Comment: ----ADDITIONAL INFORMATION---- This test was developed and its performance characteristics determined by [facility] in a manner consistent with CLIA requirements. This test has not been cleared or approved by the U.S. Food and Drug Administration. IgM Disialo. GD1b Negative Negative 024 2:11 PM CDT [facility] Comment: ----ADDITIONAL INFORMATION---- This test was developed and its performance characteristics determined by [facility] in a manner consistent with CLIA requirements. This test has not been cleared or approved by the U.S. Food and Drug Administration. Blood (Blood, Venous) 10/17/2023 2:46 PM CDT 10/18/2023 10:15 AM CDT Tyson Carreon M.D. LAB BLOOD NON ADD-ON [facility] [address] [place] [address], [facility] DTL [address] [facility] [address] [place] [address] * Myelopathy, Autoimmune/Paraneoplastic Evaluation (10/17/2023 2:46 PM [...] its performance characteristics determined by [facility] in a manner consistent with CLIA requirements. This test has not been cleared or approved by the U.S. Food and Drug Administration. AGNA-1, S Negative Negative 10/24/2023 5:13 PM CDT [facility] Comment: ----ADDITIONAL INFORMATION---- This test was developed and its performance characteristics determined by [facility] in a manner consistent with CLIA requirements. This test has not been cleared or approved by the U.S. Food and Drug Administration. NAEEM-1, S Negative Negative 10/24/2023 5:13 PM CDT [facility] Comment: ----ADDITIONAL INFORMATION---- This test was developed and its performance characteristics determined by [facility] in a manner consistent with CLIA requirements. This test has not been cleared or approved by the U.S. Food and Drug Administration. NAEEM-2, S Negative Negative 10/24/2023 5:13 PM CDT D[facility] Comment: ----ADDITIONAL INFORMATION---- This test was developed and its performance characteristics determined by [facility] in a manner consistent with CLIA requirements. This test has not been cleared or approved by the U.S. Food and Drug Administration. NAEEM-3, S Negative Negative 10/24/2023 5:13 PM CDT DTL Comment: ----ADDITIONAL INFORMATION---- This test was developed and its performance characteristics determined by [facility] in a manner consistent with CLIA requirements. This test has not been cleared or approved by the U.S. Food and Drug Administration. AP3B2 IFA, S Negative Negative 10/24/2023 5:13 PM CDT [facility]TL Comment: ----ADDITIONAL INFORMATION---- This test was developed and its performance characteristics determined by [facility] in a manner consistent with CLIA requirements. This test has not been cleared or approved by the U.S. Food and Drug Administration. CRMP-5-IgG Western Blot, S Negative Negative 10/24/2023 5:13 PM CDT DTL Comment: ----ADDITIONAL INFORMATION---- This test was developed and its performance characteristics determined by [facility] in a manner consistent with CLIA requirements. This test has not been cleared or approved by the U.S. Food and Drug Administration. DPPX Ab CBA, S Negative Negative 10/24/2023 5:13 PM CDT DTL Comment: ----ADDITIONAL INFORMATION---- This test was developed and its performance characteristics determined by [facility] in a manner consistent with CLIA requirements. This test has not been cleared or approved by the U.S. Food and Drug Administration. JOSE-B-R Ab CBA, S Negative Negative 2023 5:13 PM CDT DTL Comment: ----ADDITIONAL INFORMATION---- This test was developed and its performance characteristics determined by [facility] in a manner consistent with CLIA requirements. This test has not been cleared or approved by the U.S. Food and Drug Administration. GAD65 Ab Assay, S 0.00 <=0.02 nmol/L 10/24/2023 5:13 PM CDT [facility]TL Comment: ----ADDITIONAL INFORMATION---- This test was developed and its performance characteristics determined by [facility] in a manner consistent with CLIA requirements. This test has not been cleared or approved by the U.S. Food and Drug Administration. GFAP IFA, S Negative Negative 10/24/2023 5:13 PM CDT DTL Comment: ----ADDITIONAL INFORMATION---- This test was developed and its performance characteristics determined by [facility] in a manner consistent with CLIA requirements. This test has not been cleared or approved by the U.S. Food and Drug Administration. mGluR1 Ab IFA, S Negative Negative 10/24/19 5:13 PM CDT DTL Comment: ----ADDITIONAL INFORMATION---- This test was developed and its performance characteristics determined by [facility] in a manner consistent with CLIA requirements. This test has not been cleared or approved by the U.S. Food and Drug Administration. MOG FACS, S Negative Negative 10/24/2023 5:13 PM CDT DTL Comment: ----ADDITIONAL INFORMATION---- This test was developed and its performance characteristics determined by [facility] in a manner consistent with CLIA requirements. This test has not been cleared or approved by the U.S. Food and Drug Administration. NIF IFA, S Negative Negative 10/24/2023 5:13 PM CDT DTL Comment: ----ADDITIONAL INFORMATION---- This test was developed and its performance characteristics determined by [facility] in a manner consistent with CLIA requirements. This test has not been cleared or approved by the U.S. Food and Drug Administration. NMO/AQP4 FACS, S Negative Negative 10/24/19 5:13 PM CDT DTL Comment: ----ADDITIONAL INFORMATION---- This test was developed and its performance characteristics determined by [facility] in a manner consistent with CLIA requirements. This test has not been cleared or approved by the U.S. Food and Drug Administration. Neurochondrin IFA, S Negative Negative 10/24/2023 5:13 PM CDT DTL Comment: ----ADDITIONAL INFORMATION---- This test was developed and its performance characteristics determined by [facility] in a manner consistent with CLIA requirements. This test has not been cleared or approved by the U.S. Food and Drug Administration. MACHINE DEICER ELEMENT WINDER-1, S Negative Negative 10/24/2023 5:13 PM CDT DTL Comment: ----ADDITIONAL INFORMATION---- This test was developed and its performance characteristics determined by [facility] in a manner consistent with CLIA requirements. This test has not been cleared or approved by the U.S. Food and Drug Administration. MACHINE DEICER ELEMENT WINDER-2, S Negative Negative 10/24/2023 5:13 PM CDT DTL Comment: ----ADDITIONAL INFORMATION---- This test was developed and its performance characteristics determined by [facility] in a manner consistent with CLIA requirements. This test has not been cleared or approved by the U.S. Food and Drug Administration. Septin-7 IFA, S Negative Negative 4 5:13 PM CDT DTL Comment: ----ADDITIONAL INFORMATION---- This test was developed and its performance characteristics determined by [facility] in a manner consistent with CLIA requirements. This test has not been cleared or approved by the U.S. Food and Drug Administration. TRIM46 Ab IFA, S Negative Negative 10/24/19 24 5:13 PM CDT DTL Comment: ----ADDITIONAL INFORMATION---- This test was developed and its performance characteristics determined by [facility] in a manner consistent with CLIA requirements. This test has not been cleared or approved by the U.S. Food and Drug Administration. Blood (Blood, Venous) 10/17/2023 2:46 PM CDT 10/18/2023 10:15 AM CDT Tyson Carreon M.D. LAB BLOOD ADD-ON [facility] [address] [place], [place] [id number] [place] [address] [address] [facility] 200 [place] [address] * Cryopreservation for Molecular Genetic Studies (10/17/2023 [...] is not a DNA banking service. If halfway, guaranteed specimen storage is required, DNA banking [...] City/[facility]/ZIP Co de Phone Number [facility] [address] [place] [address], [facility] DTL [address] [place] [address] * (ABNORMAL) Thyroid Function Wildrose (10/17/2023 2:43 PM CDT) [facility] TSH, Sensitive 10.3(H) 0.3 - 4.2 mIU/L 10/17/2023 3:35 PM CDT [facility] Blood (Blood, Venous) 10/17/2023 2:43 PM CDT 10/17/2023 2:49 PM CDT Tyson Carreon M.D. LAB BLOOD ADD-ON [facility] [address] [address], [place] [facility] [place] [address] [place] [address] * Pernicious Anemia Wildrose (10/17/2023 2:43 PM CDT) Vitamin B12 Assay, S 248 180 - 914 ng/L 10/18/2023 11:55 AM CDT [facility] Comment:B-12 <400; MMA test was performed. Blood (Blood, Venous) 10/17/2023 2:43 PM CDT 10/18/2023 8:35 AM CDT Narrative [facility] - 10/18/2023 11:55 AM CDT Specimen Information: Specimen ID: [id number] Specimen Type: Blood Specimen Collection Start Date: 10/17/2023 ??2:43 PM Specimen Received Date: 10/18/2023 ??8:35 AM Specimen ID: [id number] Specimen Type: Blood Specimen Collection Start Date: 10/17/2023 ??2:43 PM Specimen Received Date: 10/18/2023 ??8:52 AM Tyson Carreon M.D. LAB BLOOD NON ADD-ON [facility] [address] [place] [address] [facility] [address] [place] [address] * Creatinine with Estimated GFR (10/17/2023 2:43 PM CDT) Creatinine 0.78 0.59 - 1.04 mg/dL 10/17/2023 3:17 PM CDT [facility] Estimated GFR (eGFR) 87 >=60 mL/min/BSA 10/17/2023 3:17 PM CDT [facility] Comment: Estimated GFR calculated using the 2020 CKD_EPI creatinine equation. Blood (Blood, Venous) 10/17/2023 2:43 PM CDT 10/17/2023 2:49 PM CDT Tyson Carreon M.D. LAB BLOOD ADD-ON [facility] [address] [place] [address], [facility] R[facility] [place] [address] [address] * Phosphorus Inorganic (10/17/2023 2:43 PM CDT) Phosphorus (Inorganic), P 3.0 2.5 - 4.5 mg/dL 10/17/2023 3:17 PM CDT [facility] Blood (Blood, Venous) 10/17/2023 2:43 PM CDT 10/17/2023 2:49 PM CDT Tyson Carreon M.D. LAB BLOOD ADD-ON [facility] [address] [place] [address], [place] [address], [facility] [address] [place] [address] * Calcium, Total (10/17/2023 2:43 PM CDT) Calcium, Total, P 9.3 8.6 - 10.0 mg/dL 10/17/2023 3:17 PM CDT [facility] Blood (Blood, Venous) 10/17/2023 2:43 PM CDT 10/17/2023 2:49 PM CDT Tyson Carreon M.D. LAB BLOOD ADD-ON [facility] [address] [place] [address], [place] [address], [address] [place] [address] * (ABNORMAL) Parathyroid Hormone (PTH) (10/17/2023 2:43 PM CDT) Parathyroid Hormone (PTH), S 74(H) 15 - 65 pg/mL 10/17/2023 3:27 PM CDT [facility] Comment: Biotin has been identified by the laser cutter as a potential interfering substance. Higher concentrations of biotin may be found in multivitamins, hair/nail supplements, and workout supplements. If the result does not match clinical observations, repeat testing after patient refrains from the use of supplements for at least 12 hours. Blood (Blood, Venous) 10/17/2023 2:43 PM CDT 10/17/2023 2:49 PM CDT Tyson Carreon M.D. LAB BLOOD ADD-ON [facility] [address] [place] [address], [facility] R[facility] [place] [address] [place] [address] * Quantitative M-protein Study (10/17/2023 2:43 PM [...] its performance characteristics determined by [facility] in a manner consistent with CLIA requirements. This test has not been cleared or approved by the U.S. Food and Drug Administration. Blood (Blood, Venous) 10/17/2023 2:43 PM CDT 10/18/2023 6:28 AM CDT Narrative [facility] - 10/19/2023 8:50 AM CDT Specimen Information: Specimen ID: [id number] Specimen Type: Blood Specimen Collection Start Date: 10/17/2023 11:00 PM Specimen Received Date: 10/18/2023 ??6:28 AM Specimen ID: [id number] Specimen Type: Blood Specimen Collection Start Date: 10/17/2023 ??2:43 PM Specimen Received Date: 10/18/2023 ??7:09 AM Tyson Carreon M.D. LAB BLOOD ADD-ON [facility] [address] [place] [address] [facility] [address] [place] [address] [place] [id number] [place] [address] * Antinuclear Ab Wildrose, S (10/17/2023 2:43 PM CDT) Pathologist [facility] Antinuclear Ab Screen by IFA, S Negative Negative 10/19/2023 8:45 AM CDT [facility] Comment:No titer performed, COURT screen is negative. Blood (Blood, Venous) 10/17/2023 2:43 PM CDT 10/17/2023 9:02 PM CDT Tyson Carreon M.D. LAB BLOOD NON ADD-ON Performing Organization Address City/[facility]/ZIP Co de Phone Number [facility] [address] [place] [address], [facility] ECLR [address] [place] [phone] * Hexosaminidase A and Total Hexosaminidase, Leukocytes (10/17/2023 2:43 PM CDT) Pathologist [facility] Hexosaminidase Total, WBC 23.9 16.4 - 36.2 [...] test MUGS). Please contact the Biochemical Genetics consultant luxury and auto. vice president jaguar brand (ex ) or genetic counselor airport control operator ( ) if you have any questions. 10/21/2023 2:17 PM CDT [facility] Comment: ----ADDITIONAL INFORMATION---- Heat Inactivation, Fluorometric This test was developed and its performance characteristics determined by [facility] in a manner consistent with CLIA requirements. This test has not been cleared or approved by the U.S. Food and Drug Administration. Blood (Blood, Peripheral Draw) 10/17/2023 2:43 PM CDT 10/18/2023 7:40 AM CDT Tyson Carreon M.D. LAB GENETIC TESTING [facility] [address] [place] [address], [facility] DT 200 [facility] [address] [place] [address] * Copper (10/17/2023 2:43 PM CDT) [facility] Copper, S 115 77 - 206 mcg/dL 10/18/2023 10:42 AM CDT [facility] Comment: ----ADDITIONAL INFORMATION---- This test was developed and its performance characteristics determined by [facility] in a manner consistent with CLIA requirements. This test has not been cleared or approved by the U.S. Food and Drug Administration. Blood (Blood, Venous) 10/17/2023 2:43 PM CDT 10/17/2023 9:48 PM CDT Tyson Carreon M.D. LAB BLOOD NON ADD-ON Performing Organization Address City/[facility]/ZIP Co de Phone Number [facility] [address] [place] [address] [facility] [address] [place] [address] * CK (Creatine Kinase) (10/17/2023 2:43 PM CDT) Creatine Kinase, P 163 26 - 192 U/L 10/17/2023 3:17 PM CDT [facility] Blood (Blood, Venous) 10/17/2023 2:43 PM CDT 10/17/2023 2:49 PM CDT Tyson Carreon M.D. LAB BLOOD ADD-ON Performing Organization Address [facility] Co de Phone Number [facility] [address] [place] [address], [facility] RDW[facility] [place] [address] [place] [address] * Vitamin E Level (10/17/2023 2:39 PM CDT) [facility] A-Tocopherol, Vitamin E 13.6 5.5 - 17.0 mg/L 10/19/2023 8:25 AM CDT [facility] Comment: ----ADDITIONAL INFORMATION---- This test was developed and its performance characteristics determined by [facility] in a manner consistent with CLIA requirements. This test has not been cleared or approved by the U.S. Food and Drug Administration. Blood (Blood, Venous) 10/17/2023 2:39 PM CDT 10/18/2023 11:23 AM CDT Tyson Carreon M.D. LAB BLOOD NON ADD-ON Performing Organization Address City/[facility]/ZIP Co de Phone Number [facility] [address] [place] [address] [facility] [address] 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
--- OUTSIDE RECORDS SUMMARY | 2023-11-24 13:36 | XMS_ITS | Encounter Summary ---
Author Organization [facility] Address [address] [place] [address] Care Team Providers Care Mortgage Assistant Name Role Phone Unavailable Primary Care Provider Unavailabl e Encounter Details Date Type Department Care Team (Late st Contact Info) Description 10/27/2023 Orders Only Pharmacy Prior Auth [phone] Margy Teran Social History Tobacco Use Types Packs/Day Years Used Date Smoking Tobacco: Never Smokeless Tobacco: Never Alcohol Use Standard Drinks/Week Comments Yes 5 (1 standard drink = 0.6 oz pur e alcohol) [facility] Utilities Answer Date Recorded In the past 12 months has e electric, gas, oil, or water [employer] threatened to shut off services in your [...] your living situation today? I have a [facility] place to live 10/22/2023 Sex and [...]
--- OUTSIDE RECORDS SUMMARY | 2023-11-24 13:36 | XMS_ITS ---
Author Organization [facility] Address [address] [place] [address] Care Team Providers Care Screw Cutter Name Role Phone Unavailable Unavailable Unavailable Surgery Details Not on file Complications Check Surgery Details section. Procedure Estimated Blood Loss Check Surgery Details section. Procedure Findings Check Surgery Details section. Procedure Specimens Taken Check Surgery Details section.
--- OUTSIDE RECORDS SUMMARY | 2023-11-24 13:36 | XMS_ITS | Encounter Summary ---
Author Organization [facility] Address [address] [place] [address] Care Team Providers Care Production Recovery Operator Name Role Phone Unavailable Primary Care Provider Unavailabl e Reason for Referral * Outpatient (Routine) - Closed Specialty Diagnoses / Procedures Referred By Paolo llanos Referred To Contact Diagnoses Other Motor Neuron Disease (HCC) Procedures [facility] [place] [address] [facility] Referral ID Status Reason Start Date Expiration Date Visits Re quested Visits Authorized [id number] Closed 10/17/2023 10/16/2024 1 1 Reason for Visit * Outpatient (Routine) - Closed Specialty Diagnoses / Procedures Referred By Paolo llanos Referred To Contact Diagnoses Other Motor Neuron Disease (HCC) Procedures [facility] [place] [address] [facility] Referral ID Status Reason Start Date Expiration Date Visits Re quested Visits Authorized [id number] Closed 10/17/2023 10/16/2024 1 1 Encounter Details Date Type Department Care Team (Latest Contact Info) Description 10/19/2023 7:11 AM CDT - 10/19/2023 11:59 PM CDT Hospital Encounter Department of Neurology in [place], [place] [address] [place] [phone] Tyson Carreon M.D. [address] [place] [address] Other Motor Neuron Disease (HCC) Discharge Disposition: Home or Self Care Social History Tobacco Use Types Packs/Day Years Used Date Smoking Tobacco: Never Smokeless Tobacco: Never Alcohol Use Standard Drinks/Week Comments Yes 5 (1 standard drink = 0.6 oz pur e alcohol) [facility] Utilities Answer Date Recorded In the past 12 months has e [employer], gas, oil, or water [employer] threatened to shut off services in your [...] your living situation today? I have a [facility] place to live 10/22/2023 Sex [...] ? Final Report Study Number: 1 EMG Animal Assisted Therapist: Kylie Alcocer [phone] or [phone] Referred by: TYSON CARREON (127 or [phone]) Referred for: Query bulbar onset ALS Referral [...] and cervical myotomes. Alberto Alcocer (127 or [phone])/ACV NERVE CONDUCTIONS ??Record Rep ?? Normal ??Normal [...] Electromyography Final Report Study Number: 1 [facility] Animal Assisted Therapist: Kylie Alcocer [phone] or [phone] Referred by: TYSON CARREON (127 or [phone]) Referred for: Query bulbar onset ALS Referral [...] and cervical myotomes. Alberto Alcocer (127 or [phone])/ACV NERVE CONDUCTIONS Record Rep Normal Normal Distal [...] Carreon M.D. NEUROLOGY ORDERABLES Performing Organization Address City/State/[facility] Co de Phone Number EMG documented in this encounter Visit Diagnoses Diagnosis Other Motor Neuron Disease (HCC) documented in this encounter
--- OUTSIDE RECORDS SUMMARY | 2023-11-24 13:36 | XMS_ITS | Encounter Summary ---
Author Organization [facility] Address [address] [place] [address] Care Team Providers Care Comfort Filler Name Role Phone Unavailable Primary Care Provider Unavailabl e Encounter Details Date Type Department Care Team (Latest Contact Info) Description 10/17/2023 2:11 PM CDT - 10/17/2023 11:59 PM CDT Hospital Encounter Department of Laboratory Medicine in [address] [phone] Lizandro López M.D. 200 [place] [phone] Other Motor Neuron Disease (HCC) Discharge Disposition: [...] PM CDT Other Motor Neuron Disease (HCC) ME T4 FREE Routine 10/17/2023 2:43 PM CDT ME ORGANIC ACID 1 QUANT 2 Routine 10/17/2023 [...] M.D. LAB MICROBIOLOGY - B LOOD ORDERABLES [facility] [address] [place] [address], [facility] ECLR [facility] in [place] [address] [place] [address] * (ABNORMAL) Neurofilament Light Chain (NfL) (10/17/2023 2:49 PM CDT) Neurofilament Light Chain, P 70.7(H) <=25.4 pg/mL 10/19/2023 3:29 PM CDT [facility] Comment: ----ADDITIONAL INFORMATION---- The testing method is a digital immunoassay for the quantitative determination of NfL in plasma manufactured by [employer] and performed on the [employer]-X analyzer. Values obtained with different methods may be different and cannot be used interchangeably. This test was developed and its performance characteristics determined by [facility] in a manner consistent with CLIA requirements. This test has not been cleared or approved by the U.S. Food and Drug Administration. Blood (Blood, Venous) 10/17/2023 2:49 PM CDT 10/18/2023 8:38 AM CDT Lizandro López M.D. LAB BLOOD NON ADD-ON [facility] [place] [address] [place] [address] [facility] [address] [place] [address] * Ganglioside Antibody Panel (10/17/2023 2:46 PM CDT) IgG Monos. GM1 Negative Negative 10/25/2023 2:11 PM CDT DTL Comment: ----ADDITIONAL INFORMATION---- This test was developed and its performance characteristics determined by [facility] in a manner consistent with CLIA requirements. This test has not been cleared or approved by the U.S. Food and Drug Administration. IgM Monos. GM1 Negative Negative 10/25/2023 2:11 PM CDT DTL Comment: ----ADDITIONAL INFORMATION---- This test was developed and its performance characteristics determined by [facility] in a manner consistent with CLIA requirements. This test has not been cleared or approved by the U.S. Food and Drug Administration. IgG Asialo. GM1 Negative Negative 4 2:11 PM CDT DTL Comment: ----ADDITIONAL INFORMATION---- This test was developed and its performance characteristics determined by [facility] in a manner consistent with CLIA requirements. This test has not been cleared or approved by the U.S. Food and Drug Administration. IgM Asialo. GM1 Negative Negative 4 2:11 PM CDT DTL Comment: ----ADDITIONAL INFORMATION---- This test was developed and its performance characteristics determined by [facility] in a manner consistent with CLIA requirements. This test has not been cleared or approved by the U.S. Food and Drug Administration. IgG Disialo. GD1b Negative Negative 024 2:11 PM CDT DTL Comment: ----ADDITIONAL INFORMATION---- This test was developed and its performance characteristics determined by [facility] in a manner consistent with CLIA requirements. This test has not been cleared or approved by the U.S. Food and Drug Administration. IgM Disialo. GD1b Negative Negative 024 2:11 PM CDT DTL Comment: ----ADDITIONAL INFORMATION---- This test was developed and its performance characteristics determined by [facility] in a manner consistent with CLIA requirements. This test has not been cleared or approved by the U.S. Food and Drug Administration. Blood (Blood, Venous) 10/17/2023 2:46 PM CDT 10/18/2023 10:15 AM CDT Lizandro López M.D. LAB BLOOD NON ADD-ON [facility] [address] [place] [address], [facility] DTL [address] [place] [address] * Myelopathy, Autoimmune/Paraneoplastic Evaluation (10/17/2023 2:46 PM [...] developed and its performance characteristics determined by [facility] in a manner consistent with CLIA requirements. This test has not been cleared or approved by the U.S. Food and Drug Administration. AGNA-1, S Negative Negative 10/24/2023 5:13 PM CDT DTL Comment: ----ADDITIONAL INFORMATION---- This test was developed and its performance characteristics determined by [facility] in a manner consistent with CLIA requirements. This test has not been cleared or approved by the U.S. Food and Drug Administration. NAEEM-1, S Negative Negative 10/24/2023 5:13 PM CDT DTL Comment: ----ADDITIONAL INFORMATION---- This test was developed and its performance characteristics determined by [facility] in a manner consistent with CLIA requirements. This test has not been cleared or approved by the U.S. Food and Drug Administration. NAEEM-2, S Negative Negative 10/24/2023 5:13 PM CDT DTL Comment: ----ADDITIONAL INFORMATION---- This test was developed and its performance characteristics determined by [facility] in a manner consistent with CLIA requirements. This test has not been cleared or approved by the U.S. Food and Drug Administration. NAEEM-3, S Negative Negative 10/24/2023 5:13 PM CDT DTL Comment: ----ADDITIONAL INFORMATION---- This test was developed and its performance characteristics determined by [facility] in a manner consistent with CLIA requirements. This test has not been cleared or approved by the U.S. Food and Drug Administration. AP3B2 IFA, S Negative Negative 10/24/2023 5:13 PM CDT DTL Comment: ----ADDITIONAL INFORMATION---- This test was developed and its performance characteristics determined by [facility] in a manner consistent with CLIA requirements. This test has not been cleared or approved by the U.S. Food and Drug Administration. CRMP-5-IgG Western Blot, S Negative Negative 10/24/2023 5:13 PM CDT DTL Comment: ----ADDITIONAL INFORMATION---- This test was developed and its performance characteristics determined by [facility] in a manner consistent with CLIA requirements. This test has not been cleared or approved by the U.S. Food and Drug Administration. DPPX Ab CBA, S Negative Negative 10/24/2023 5:13 PM CDT DTL Comment: ----ADDITIONAL INFORMATION---- This test was developed and its performance characteristics determined by [facility] in a manner consistent with CLIA requirements. This test has not been cleared or approved by the U.S. Food and Drug Administration. JOSE-B-R Ab CBA, S Negative Negative 2023 5:13 PM CDT DTL Comment: ----ADDITIONAL INFORMATION---- This test was developed and its performance characteristics determined by [facility] in a manner consistent with CLIA requirements. This test has not been cleared or approved by the U.S. Food and Drug Administration. GAD65 Ab Assay, S 0.00 <=0.02 nmol/L 10/24/2023 5:13 PM CDT DTL Comment: ----ADDITIONAL INFORMATION---- This test was developed and its performance characteristics determined by [facility] in a manner consistent with CLIA requirements. This test has not been cleared or approved by the U.S. Food and Drug Administration. GFAP IFA, S Negative Negative 10/24/2023 5:13 PM CDT DTL Comment: ----ADDITIONAL INFORMATION---- This test was developed and its performance characteristics determined by [facility] in a manner consistent with CLIA requirements. This test has not been cleared or approved by the U.S. Food and Drug Administration. mGluR1 Ab IFA, S Negative Negative 10/24/19 24 5:13 PM CDT DTL Comment: ----ADDITIONAL INFORMATION---- This test was developed and its performance characteristics determined by [facility] in a manner consistent with CLIA requirements. This test has not been cleared or approved by the U.S. Food and Drug Administration. MOG FACS, S Negative Negative 10/24/2023 5:13 PM CDT DTL Comment: ----ADDITIONAL INFORMATION---- This test was developed and its performance characteristics determined by [facility] in a manner consistent with CLIA requirements. This test has not been cleared or approved by the U.S. Food and Drug Administration. NIF IFA, S Negative Negative 10/24/2023 5:13 PM CDT DTL Comment: ----ADDITIONAL INFORMATION---- This test was developed and its performance characteristics determined by [facility] in a manner consistent with CLIA requirements. This test has not been cleared or approved by the U.S. Food and Drug Administration. NMO/AQP4 FACS, S Negative Negative 10/24/19 24 5:13 PM CDT DTL Comment: ----ADDITIONAL INFORMATION---- This test was developed and its performance characteristics determined by [facility] in a manner consistent with CLIA requirements. This test has not been cleared or approved by the U.S. Food and Drug Administration. Neurochondrin IFA, S Negative Negative 10/24/2023 5:13 PM CDT DTL Comment: ----ADDITIONAL INFORMATION---- This test was developed and its performance characteristics determined by [facility] in a manner consistent with CLIA requirements. This test has not been cleared or approved by the U.S. Food and Drug Administration. MIXED CROP FARMER-1, S Negative Negative 10/24/2023 5:13 PM CDT DTL Comment: ----ADDITIONAL INFORMATION---- This test was developed and its performance characteristics determined by [facility] in a manner consistent with CLIA requirements. This test has not been cleared or approved by the U.S. Food and Drug Administration. MIXED CROP FARMER-2, S Negative Negative 10/24/2023 5:13 PM CDT DTL Comment: ----ADDITIONAL INFORMATION---- This test was developed and its performance characteristics determined by [facility] in a manner consistent with CLIA requirements. This test has not been cleared or approved by the U.S. Food and Drug Administration. Septin-7 IFA, S Negative Negative 4 5:13 PM CDT DTL Comment: ----ADDITIONAL INFORMATION---- This test was developed and its performance characteristics determined by [facility] in a manner consistent with CLIA requirements. This test has not been cleared or approved by the U.S. Food and Drug Administration. TRIM46 Ab IFA, S Negative Negative 10/24/19 24 5:13 PM CDT DTL Comment: ----ADDITIONAL INFORMATION---- This test was developed and its performance characteristics determined by [facility] in a manner consistent with CLIA requirements. This test has not been cleared or approved by the U.S. Food and Drug Administration. Blood (Blood, Venous) 10/17/2023 2:46 PM CDT 10/18/2023 10:15 AM CDT Lizandro López M.D. LAB BLOOD ADD-ON Performing Organization Address [facility] de Phone Number [facility] [address] [place] 200 [place] [address] * Methylmalonic Acid (MMA), Quantitative, Serum (10/17/2023 2:43 PM CDT) Methylmalonic Acid, QN, S 0.22 <=0.40 nmol/mL 10/20/2023 8:15 AM CDT DT Comment: No cellular B-12 deficiency. ----ADDITIONAL INFORMATION---- This test was developed and its performance characteristics determined by [facility] in a manner consistent with CLIA requirements. This test has not been cleared or approved by the U.S. Food and Drug Administration. Blood 10/17/2023 2:43 PM CDT 10/18/2023 1:29 PM CDT Lizandro López M.D. LAB BLOOD NON ADD-ON Performing Organization Address [facility] de Phone Number [facility] 200 [place] [address], [facility] DT [address] [facility] 200 [place] [address] * T4 (Thyroxine), Free, Serum (10/17/2023 2:43 PM CDT) T4 (Thyroxine), Free, S 0.9 0.9 - 1.7 ng/dL 10/17/2023 3:57 PM CDT [facility] Blood 10/17/2023 2:43 PM CDT 10/17/2023 2:49 PM CDT Lizandro López M.D. LAB BLOOD ADD-ON [facility] [address] [place] [address], [facility] RDWG [facility] in [place] [address] [address] * (ABNORMAL) Thyroperoxidase (TPO) Antibodies (10/17/2023 2:43 PM CDT) Thyroperoxidase Ab, S 125.9(H) <34.0 IU/mL 10/18/2023 3:45 AM CDT ECLR Blood 10/17/2023 2:43 PM CDT 10/17/2023 9:04 PM CDT Lizandro López M.D. LAB BLOOD ADD-ON Performing Organization Address City/[facility]/ZIP Co de Phone Number [facility] [address] [place] [address], [facility] ECLR [facility] [place] [address] * Cryopreservation for Molecular Genetic Studies (10/17/2023 [...] is not a DNA banking service. If prison, guaranteed specimen storage is required, DNA banking [...] M.D. LAB GENETIC TESTING Performing Organization Address City/[facility]/ZIP Co de Phone Number [facility] [address] [place] [address], [facility] DTL [address] [facility] [address] [place] [address] * (ABNORMAL) Thyroid Function Daggett (10/17/2023 2:43 PM CDT) TSH, Sensitive 10.3(H) 0.3 - 4.2 mIU/L 10/17/2023 3:35 PM CDT [facility] Blood (Blood, Venous) 10/17/2023 2:43 PM CDT 10/17/2023 2:49 PM CDT Lizandro López M.D. LAB BLOOD ADD-ON Performing Organization Address City/[facility]/ZIP Co de Phone Number [facility] [address] [place] [address], [facility] RDWG [facility] in [place] [address] [place] [phone] * Pernicious Anemia Daggett (10/17/2023 2:43 PM CDT) Vitamin B12 Assay, S 248 180 - 914 ng/L 10/18/2023 11:55 AM CDT [facility] Comment:B-12 <400; MMA test was performed. Blood (Blood, Venous) 10/17/2023 2:43 PM CDT 10/18/2023 8:35 AM CDT Narrative [facility] - 10/18/2023 11:55 AM CDT Specimen Information: Specimen ID: [id number] Specimen Type: Blood Specimen Collection Start Date: 10/17/2023 ??2:43 PM Specimen Received Date: 10/18/2023 ??8:35 AM Specimen ID: [id number] Specimen Type: Blood Specimen Collection Start Date: 10/17/2023 ??2:43 PM Specimen Received Date: 10/18/2023 ??8:52 AM Lizandro López M.D. LAB BLOOD NON ADD-ON Performing Organization Address City/[facility]/ZIP Co de Phone Number [facility] [address] [place] [address] [facility] [address] [place] [address] * Creatinine with Estimated GFR (10/17/2023 2:43 PM CDT) Creatinine 0.78 0.59 - 1.04 mg/dL 10/17/2023 3:17 PM CDT [facility] Estimated GFR (eGFR) 87 >=60 mL/min/BSA 10/17/2023 3:17 PM CDT [facility] Comment: Estimated GFR calculated using the 2020 CKD_EPI creatinine equation. Blood (Blood, Venous) 10/17/2023 2:43 PM CDT 10/17/2023 2:49 PM CDT Lizandro López M.D. LAB BLOOD ADD-ON [facility] [address] [place] [address], [facility] RDWG [facility] in [place] [address] [place] [address] * Phosphorus Inorganic (10/17/2023 2:43 PM CDT) Phosphorus (Inorganic), P 3.0 2.5 - 4.5 mg/dL 10/17/2023 3:17 PM CDT [facility] Blood (Blood, Venous) 10/17/2023 2:43 PM CDT 10/17/2023 2:49 PM CDT Lizandro López M.D. LAB BLOOD ADD-ON Performing Organization Address [facility] Co de Phone Number [facility] [address] [place] [address], [facility] in [address] [place] [address] * Calcium, Total (10/17/2023 2:43 PM CDT) Calcium, Total, P 9.3 8.6 - 10.0 mg/dL 10/17/2023 3:17 PM CDT [facility] Blood (Blood, Venous) 10/17/2023 2:43 PM CDT 10/17/2023 2:49 PM CDT Lizandro López M.D. LAB BLOOD ADD-ON Performing Organization Address [facility] de Phone Number [facility] [address] [place] [address], [facility] in [address] [phone] * (ABNORMAL) Parathyroid Hormone (PTH) (10/17/2023 2:43 PM CDT) Parathyroid Hormone (PTH), S 74(H) 15 - 65 pg/mL 10/17/2023 3:27 PM CDT [facility] Comment: Biotin has been identified by the program clinician as a potential interfering substance. Higher concentrations of biotin may be found in multivitamins, hair/nail supplements, and workout supplements. If the result does not match clinical observations, repeat testing after patient refrains from the use of supplements for at least 12 hours. Blood (Blood, Venous) 10/17/2023 2:43 PM CDT 10/17/2023 2:49 PM CDT Lizandro López M.D. LAB BLOOD ADD-ON [facility] [address], [place] [address], [facility] RDWG [facility] in [place] [address], [place] [address] * Quantitative M-protein Study (10/17/2023 2:43 PM [...] developed and its performance characteristics determined by [facility] in a manner consistent with CLIA requirements. This test has not been cleared or approved by the U.S. Food and Drug Administration. Blood (Blood, Venous) 10/17/2023 2:43 PM CDT 10/18/2023 6:28 AM CDT Narrative [facility] - 10/19/2023 8:50 AM CDT Specimen Information: Specimen ID: [id number] Specimen Type: Blood Specimen Collection Start Date: 10/17/2023 11:00 PM Specimen Received Date: 10/18/2023 ??6:28 AM Specimen ID: [id number] Specimen Type: Blood Specimen Collection Start Date: 10/17/2023 ??2:43 PM Specimen Received Date: 10/18/2023 ??7:09 AM Lizandro López M.D. LAB BLOOD ADD-ON [facility] [address] [place] [address] [facility] [address] [place] [address] [facility] [address] [place] [address] * Antinuclear Ab Daggett, S (10/17/2023 2:43 PM CDT) Pathologist [facility] Antinuclear Ab Screen by IFA, S Negative Negative 10/19/2023 8:45 AM CDT ECLR Comment:No titer performed, COURT screen is negative. Blood (Blood, Venous) 10/17/2023 2:43 PM CDT 10/17/2023 9:02 PM CDT Lizandro López M.D. LAB BLOOD NON ADD-ON [facility] [address] [place] [address], [facility] ECLR [address] [place] [phone] * Hexosaminidase A and Total Hexosaminidase, Leukocytes (10/17/2023 2:43 PM CDT) Pathologist [facility] Hexosaminidase Total, WBC 23.9 16.4 - 36.2 nmol/min /mg 10/21/2023 2:17 PM CDT DTL Hexosaminidase Percent A, WBC 64 63 - 75 % 10/21/2023 2:17 PM CDT DTL Reviewed by Coreen Anegl, PhD 10/21/2023 2:17 PM CDT DTL Interpretation [...] MUGS). Please contact the [employer] building consultant or genetic counselor parts counterperson ( ) if you have any questions. 10/21/2023 2:17 PM CDT DT Comment: ----ADDITIONAL INFORMATION---- Heat Inactivation, Fluorometric This test was developed and its performance characteristics determined by [facility] in a manner consistent with CLIA requirements. This test has not been cleared or approved by the U.S. Food and Drug Administration. Blood (Blood, Peripheral Draw) 10/17/2023 2:43 PM CDT 10/18/2023 7:40 AM CDT Lizandro López M.D. LAB GENETIC TESTING Performing Organization Address City/[facility]/ZIP Co de Phone Number [facility] [address] [place] [address], [facility] DTL [address] [facility] [address] [place] [address] * Copper (10/17/2023 2:43 PM CDT) [facility] Copper, S 115 77 - 206 mcg/dL 10/18/2023 10:42 AM CDT [facility] Comment: ----ADDITIONAL INFORMATION---- This test was developed and its performance characteristics determined by [facility] in a manner consistent with CLIA requirements. This test has not been cleared or approved by the U.S. Food and Drug Administration. Blood (Blood, Venous) 10/17/2023 2:43 PM CDT 10/17/2023 9:48 PM CDT Lizandro López M.D. LAB BLOOD NON ADD-ON Performing Organization Address City/[facility]/ZIP Co de Phone Number [facility] [address] [place] [address] [facility] [address] [place] [address] * CK (Creatine Kinase) (10/17/2023 2:43 PM CDT) Creatine Kinase, P 163 26 - 192 U/L 10/17/2023 3:17 PM CDT [facility] Blood (Blood, Venous) 10/17/2023 2:43 PM CDT 10/17/2023 2:49 PM CDT Lizandro López M.D. LAB BLOOD ADD-ON Performing Organization Address City/[facility]/ZIP Co de Phone Number [facility] [address] [place] [address], [facility] RDWG [facility] in [place] [address] [place] [phone] * Vitamin E Level (10/17/2023 2:39 PM CDT) Pathologist [facility] A-Tocopherol, Vitamin E 13.6 5.5 - 17.0 mg/L 10/19/2023 8:25 AM CDT [facility] Comment: ----ADDITIONAL INFORMATION---- This test was developed and its performance characteristics determined by [facility] in a manner consistent with CLIA requirements. This test has not been cleared or approved by the U.S. Food and Drug Administration. Blood (Blood, Venous) 10/17/2023 2:39 PM CDT 10/18/2023 11:23 AM CDT Lizandro López M.D. LAB BLOOD NON ADD-ON [facility] [place] [address] [place] [address] [facility] [address] [place] [address] documented in this encounter Visit Diagnoses Diagnosis Other Motor Neuron Disease (HCC) documented in this encounter
--- OUTSIDE RECORDS SUMMARY | 2023-11-24 13:36 | XMS_ITS | Encounter Summary ---
Author Organization [facility] Address [address] [place] [address] Care Team Providers Care Choir Leader Name Role Phone Unavailable Primary Care Provider Unavailabl e Reason for Visit * Reason Onset Date Comments Communication 11/08/2023 Encounter Details Date Type Department Care Team (Late st Contact Info) Description 11/08/2023 Clinical Communication Department of Neurology in [address] [phone] Lizandro López M.D. [address] [place] [phone] Communication Social History Tobacco Use Types Packs/Day Years Used Date Smoking Tobacco: Never Smokeless Tobacco: Never Alcohol Use Standard Drinks/Week Comments Yes 5 (1 standard drink = 0.6 oz pur e alcohol) [facility] Utilities Answer Date Recorded In the past 12 months has [facility] [employer], gas, oil, or water [employer] threatened to shut off services in your [...] your living situation today? I have a [facility] place to live 10/22/2023 Sex and [...]
--- OUTSIDE RECORDS SUMMARY | 2023-11-24 13:36 | XMS_ITS | Encounter Summary ---
Author Organization [facility] Address [address] [place] [address] Care Team Providers Care Tmd Teacher Name Role Phone Unavailable Primary Care Provider Unavailabl e Reason for Visit * Reason Onset Date Comments Letter to support Out of Network 11/15/[address] [facility] Encounter Details Date Type Department Care Team (Latest Contact Info) Description 11/15/2023 Clinical Communication Department of Neurology in [address] [phone] Lizandro López M.D. [address] [place] [phone] Letter to support Out of Network ([facility]) Social History Tobacco Use Types Packs/Day Years Used Date Smoking Tobacco: Never Smokeless Tobacco: Never Alcohol Use Standard Drinks/Week Comments Yes 5 (1 standard drink = 0.6 oz pur e alcohol) [facility] Utilities Answer Date Recorded In the past 12 months has [employer], gas, oil, or water [employer] threatened to shut off services in your [...] your living situation today? I have a [facility] place to live 10/22/2023 Sex and Gender Information Value Date Recorded Sex Assigned at Female 10/22/2023 5:48 PM CDT Gender Identity Female 10/22/2023 5:48 PM CDT Sexual Orientation Straight 10/22/2023 5: 48 PM CDT documented as of this encounter Miscellaneous Notes * Telephone Encounter - Kristen Dash - 11/18/2023 2:57 PM CDT [facility] faxed in prior auth approval for out of network exception for Dr. López. Documents scanned into chart. * Telephone Encounter - Santos De La Vega - 11/15/2023 8:54 AM CDT Provider created a letter to support the out of network visits with clinical notes. Faxed to [facility] [place]. Fax- [phone] documented in this encounter Plan of Treatment Not on file documented as of this encounter Visit Diagnoses Not on filedocumented in this encounter
--- OUTSIDE RECORDS SUMMARY | 2023-11-24 13:36 | XMS_ITS | Encounter Summary ---
Author Organization [facility] Address [address] [place] [address] Care Team Providers Care Safety Spec Name Role Phone Unavailable Primary Care Provider Unavailabl e Reason for Referral * Medication Prior Authorization - Closed Specialty Diagnoses / Procedures Referred By Paolo llanos Referred To Contact Lizandro Carreon M.D. [address] [place] [address] Referral ID Status Reason Start Date Expiration Date Visits Re quested Visits Authorized [id number] Closed 1 1 * Outpatient (Routine) - Authorized Specialty Diagnoses / Procedures Referred By Contac t Referred To Contact Neurology Diagnoses Sclerosis Lateral Amyotrophic (HCC) Lizandro Carreon M.D. [address] [place] [address] Referral ID Status Reason Start Date Expiration Date V isits Requested Visits Authorized [id number] Authorized 10/26/2023 04/26/2025 1 1 * Outpatient (Routine) - Authorized Specialty Diagnoses / Procedures Referred By Contac t Referred To Contact Speech Language Pathology Diagnoses Sclerosis Lateral Amyotrophic (HCC) Lizandro Carreon M.D. [address] [place] [address] Referral ID Status Reason Start Date Expiration Date Visits Requested Visits Authorized [id number] Authorized Patient Preference 10/26/2023 04/26/2025 1 1 * Outpatient (Routine) - Authorized Specialty Diagnoses / Procedures Referred By Paolo llanos Referred To Contact Respiratory Therapy Diagnoses Sclerosis Lateral Amyotrophic (HCC) Lizandro Carreon M.D. [address] [place] [address] Referral ID Status Reason Start Date Expiration Date V isits Requested Visits Authorized [id number] Authorized 10/26/2023 04/26/2025 1 1 Reason for Visit * Reason Comments motor neuron disease Follow up * Outpatient (Routine) - Closed Specialty Diagnoses / Procedures Referred By Paolo llanos Referred To Contact Neurology Lizandro Carreon M.D. [address] [place] [address] [facility] Region Referral ID Status Reason Start Date Expiration Date Visits Re quested Visits Authorized [id number] Closed 10/17/2023 04/17/2025 1 1 Encounter Details Date Type Department Care Team (Late st Contact Info) Description 10/25/2023 3:30 PM CDT Office Visit Department of Neurology in [address] [phone] Lizandro Carreon M.D. [address] [place] [address] Sclerosis Lateral Amyotrophic (HCC) (Primary Dx) Discharge Disposition: Home or Self Care Social History Tobacco Use Types Packs/Day Years Used Date Smoking Tobacco: Never Smokeless Tobacco: Never Alcohol Use Standard Drinks/Week Comments Yes 5 (1 standard drink = 0.6 oz pur e alcohol) [facility] Utilities Answer Date Recorded In the past 12 months has [employer], gas, oil, or water [employer] threatened to shut off services in your [...] your living situation today? 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 Overall these [...] like to see a neuromuscular subspecialist in [place], I could expedite this but there are [...] diagnoses (which were out of network at [facility]), as these were medically necessary and also many of labs would have been send-out to [facility] or another tertiary referral center as many [...]
--- OUTSIDE RECORDS SUMMARY | 2023-11-24 13:36 | XMS_ITS | Encounter Summary ---
Author Organization [facility] Address [address] [place] [address] Care Team Providers Care Fios Line Installer Name Role Phone Unavailable Primary Care Provider Unavailabl e Reason for Referral * Medication Prior Authorization - Closed Specialty Diagnoses / Procedures Referred By Paolo llanos Referred To Contact Lizandro López M.D. [address] [place] [address] Referral ID Status Reason Start Date Expiration Date Visits Re quested Visits Authorized [id number] Closed 1 1 Reason for Visit * Reason Onset Date Comments Rx Prior Authorization 10/26/2023 [facility] Encounter Details Date Type Department Care Team (Latest Contact Info) Description 10/26/2023 Clinical Communication Department of Neurology in [place], [place] [address] [place] [phone] Lizandro López M.D. [address] [place] [phone] Rx Prior Authorization ([facility] ) Social History Tobacco Use Types Packs/Day Years Used Date Smoking Tobacco: Never Smokeless Tobacco: Never Alcohol Use Standard Drinks/Week Comments Yes 5 (1 standard drink = 0.6 oz pur e alcohol) [facility] Utilities Answer Date Recorded In [...] your living situation today? I have a [facility] place to live 10/22/2023 Sex and [...]
--- OUTSIDE RECORDS SUMMARY | 2023-11-24 13:36 | XMS_ITS | Encounter Summary ---
Author Organization [facility] Address [address] [place] [address] Care Team Providers Care Olive Picker Name Role Phone Unavailable Primary Care Provider Unavailabl e Encounter Details Date Type Department Care Team (Late st Contact Info) Description 10/28/2023 Orders Only Pharmacy Prior Auth [facility] [phone] Chel Snyder Social History Tobacco Use Types Packs/Day Years Used Date Smoking Tobacco: Never Smokeless Tobacco: Never Alcohol Use Standard Drinks/Week Comments Yes 5 (1 standard drink = 0.6 oz pur e alcohol) [facility] Utilities Answer Date Recorded In the [...] your living situation today? I have a [facility] place to live 10/22/2023 [...]
--- OUTSIDE RECORDS SUMMARY | 2023-11-24 13:36 | XMS_ITS | Encounter Summary ---
Author Organization [facility] Address [address] [place] [address] Care Team Providers Care Library Consultant Name Role Phone Unavailable Primary Care Provider Unavailabl e Reason for Referral * Outpatient (Routine) - Closed Specialty Diagnoses / Procedures Referred By Paolo t Referred To Contact Neurology Lizandro López M.D. [address] [place] [address] [facility] Region Referral ID Status Reason Start Date Expiration Date Visits Re quested Visits Authorized [id number] Closed 10/12/2023 04/12/2025 1 1 Reason for Visit * Reason Onset Date Comments Order Request 10/12/2023 F/u clinical vis it Encounter Details Date Type Department Care Team (Latest Contact Info) Description 10/12/2023 Clinical Communication Department of Neurology in [address] [phone] Lizandro López M.D. [address] [place] [phone] Order Request (F/u clinical visit ) Social [...]
[2023-11-24 17:00] LABS: Basophils Absolute Auto 0.04 K/uL (0.00-0.30); Basophils Percent Auto 0.7 % (0.0-3.0); Eosinophils Absolute Auto 0.27 K/uL (0.00-0.50); Eosinophils Percent Auto 4.9 % (0.0-7.0); Hematocrit 45.9 % (33.0-51.0); Hemoglobin* 14.2 gm/dL (12.0-16.0); Lymphocytes Absolute Auto 1.24 K/uL (0.90-2.90); Lymphocytes Percent Auto 22.7 % (20-44); Mean Corpuscular HGB Conc 31 gm/dL (32-36); Mean Corpuscular Hemoglobin 28 pg (26-34); Mean Corpuscular Volume 91 fL (80-100); Monocytes Percent Auto 9.1 % (0.0-11.0); Neutrophils Absolute Auto 3.42 K/uL (1.7-7.0); Neutrophils Percent Auto 62.6 % (42.0-72.0); Platelet Count* 366 K/uL (140-440); RDW Coefficient of Variation % 12.9 % (11.5-15.5); Red Blood Count 5.04 m/uL (4.00-5.20); White Blood Count* 5.47 K/uL (4.50-11.00)
[2023-11-24 17:02] LABS: Slide Review Reflex No
[2023-11-24 17:08] LABS: Chloride* 103 mmol/L (96-114)
[2023-11-24 17:09] LABS: Albumin* 4.6 g/dL (3.3-5.0); Sodium* 139 mmol/L (135-149)
[2023-11-24 17:10] LABS: Potassium* 4.2 mmol/L (3.6-5.1)
[2023-11-24 17:12] LABS: Alanine Aminotransferase* 20 U/L (4-35); Alkaline Phosphatase* 73 U/L (40-150); Anion Gap 7 mEq/L (7-15); Aspartate Amino Transferase* 33 U/L (12-35); Bilirubin Total* 0.5 mg/dL (0.1-1.5); Blood Urea Nitrogen* 18 mg/dL (7-30); Carbon Dioxide* 29 mmol/L (20-32); Creatinine* 0.9 mg/dL (0.5-1.5); Estimated Glomerular Filt Rate 74 ml/min; Gamma Glutamyl Transpeptidase* 15 U/L (8-55); Glucose* 76 mg/dL (60-115); Total Protein* 7.4 g/dL (6.0-8.3)
[2023-11-24 17:13] LABS: Calcium* 10.1 mg/dL (8.4-10.6); Uric Acid* 4.4 mg/dL (2.2-8.4)
[2023-11-24 17:48] LABS: Ferritin* 10.1 ng/mL (11.1-264.0)
[2023-11-24 18:01] LABS: Vitamin D 25 Hydroxy* 37 ng/mL (30-80)
[2023-11-24 23:32] LABS: Free T4 Free Thyroxine* 1.41 ng/dL (0.70-1.85)
[2023-11-26 19:21] LABS: TPO Antibody 188.9 IU/mL (0.0-9.0); Thyroglobulin Antibody 2.8 IU/mL (0.0-4.0)
[2023-11-26 21:52] LABS: Ceruloplasmin 26 mg/dL (16-45)
[2023-11-26 22:13] LABS: DHEAS 90 ug/dL (19-205)
[2023-11-26 23:14] LABS: Insulin, Random 25 uIU/mL
[2023-11-26 23:40] LABS: EBV Antibody-Early (D)Ag IgG 48.8 U/mL (0.0-10.9)
[2023-11-27 01:20] LABS: Anti-Nuclear Ab(ANA)IgG ELISA Detected (None Detected)
[2023-11-27 03:58] LABS: CRP, High Sensitivity 1.1 mg/L (<=3.0)
[2023-11-27 04:07] LABS: Free T3 3.2 pg/mL (2.5-4.3)
[2023-11-27 04:30] LABS: Cortisol, Serum 12.3 ug/dL
[2023-11-27 04:37] LABS: Homocysteine, Total 15 umol/L (0-15)
[2023-11-28 00:19] LABS: Copper, Serum/Plasma 98.5 ug/dL (80.0-155.0); Zinc, Serum/Plasma 82.6 ug/dL (60.0-120.0)
[2023-11-28 06:32] LABS: Antinuclear AntibodyHEp-2 <1:80 (<1:80)
[2023-11-28 16:50] LABS: T3 Reverse - LC-MS/MS 10.5 ng/dL (9.0-27.0); T3, Total - LC-MS/MS 105 ng/dL (80-200)
[2023-11-29 10:36] LABS: Vitamin A (Retinol) 0.68 mg/L (0.30-1.20)
== END 2023-11-24 13:31 | disposition home or self-care (01) ==
LOC: NPINS 13:30
PROVIDERS: PCP Physician Assistant Medical; Visit Provider Family Medicine
DX: E03.9 Hypothyroidism, unspecified (principal); R13.10 Dysphagia, unspecified; N95.1 Menopausal and female climacteric states; K59.00 Constipation, unspecified; R06.00 Dyspnea, unspecified; M25.50 Pain in unspecified joint; R47.81 Slurred speech; L20.9 Atopic dermatitis, unspecified; Z63.79 Other stressful life events affecting family and household; Z13.21 Encounter for screening for nutritional disorder; R49.0 Dysphonia; R47.1 Dysarthria and anarthria; R53.1 Weakness
CPT/HCPCS: 80053; 81003; 82306; 82390; 82525; 82533; 82627; 82728; 82977; 83090; 83525; 84439; 84443; 84480; 84481; 84482; 84550; 84590; 84630; 85025; 86039; 86141; 86376; 86663; 86800

== ENCOUNTER 2024-01-06 21:49 | Outpatient (REF) | payer MEDICARE, BC, SELFPAY ==
--- OUTSIDE RECORDS SUMMARY | 2024-01-06 21:56 | XMS_ITS | Referral Summary ---
Author Organization [facility] Address [address] [place] [address]. [place] [address] Care Team Providers Care Fruit Sprayer Name Role Phone Felipe Thomas MD Primary Care Provider Natacha Meade [facility] Unavailable [phone] Natacha Meade [facility] Unavailable [phone] Yemi Bacon MD Unavailable Encounters Date Type Department Care Team Description 01/06/2024 Telephone [facility] [address] [phone] Yemi Bacon MD 01/05/2024 Telephone [facility] [address] [phone] Yemi Bacon MD 12/30/2023 MyC Medical Advice [facility] [address] [phone] Yemi Bacon MD 12/29/2023 MyC Medical Advice [facility] [address] [phone] Yemi Bacon MD 12/26/2023 MyC Medical Advice [facility] [address] [phone] Yemi Bacon MD 12/23/2023 Telephone [facility] [address] [phone] Yemi Bacon MD 12/21/2023 Telephone [facility] [address] [phone] Yemi Bacon MD OTHER (dextromethorphan-quiNI Dine (NUEDEXTA) 20-10 MG capsule Appeal ) 12/13/2023 Telephone [facility] [address] [facility] [address],[place] [phone] Lisset Quiros, GC Results 12/13/2023 MyC Medical Advice [facility] [address] [phone] Katerina Cervantes, APPRAISAL SPECIALIST 12/07/2023 Telephone [facility] [address] [phone] Yemi Bacon MD Patient/info Update (Regarding PA for dextromethorphan-quiNID ine (NUEDEXTA) 20-10 MG capsule) 12/06/2023 MyC Medical Advice [facility] Neu[facility] [address] [phone] Yemi Bacon MD 11/25/2023 MyC Medical Advice [facility] Multiple Sclerosis [address] [phone] [facility] 11/23/2023 MyC Medical Advice [facility] Neu[facility] [address] [phone] Yemi Bacon MD 11/23/2023 MyC Medical Advice [facility] [address] [phone] Yemi Bacon MD 11/23/2023 MyC Medical Advice [facility] [address] [phone] Yemi Bacon MD 11/23/2023 MyC Medical Advice [facility] [address] [phone] Yemi Bacon MD 11/17/2023 MyC Medical Advice [facility] [address] [phone] Irma Batista LPN 11/17/2023 MyC Medical Advice [facility] [address] [phone] Yemi Bacon MD 11/14/2023 Telephone [facility] [address] [phone] Yemi Bacon MD Prior Auth - Medication (dextromethorphan-quiNI Dine (NUEDEXTA) 20-10 MG capsule -EPA DENIED) 11/11/2023 MyC Medical Advice [facility] [address] [phone] Yemi Bacon MD 11/10/2023 MyC Medical Advice [facility] [address] [phone] Yemi Bacon MD 11/10/2023 Allied Health/Nurse Visit [facility] [address] [phone] Yemi Bacon MD ALS (amyotrophic lateral sclerosis) (H) (Primary Dx) 11/10/2023 3:45 PM CDT Lab [facility] [address] [phone] ALS (amyotrophic lateral sclerosis) (H) 11/10/2023 Travel 11/10/2023 2:15 PM CDT Therapy Visit [facility] [address] [phone] Katerina Cervantes, APPRAISAL SPECIALIST ALS (amyotrophic lateral sclerosis) (H) (Primary Dx); Dysarthria; Oropharyngeal dysphagia 11/10/2023 Telephone [facility] [address] [phone] Yemi Bacon MD Prior Auth - Medication (Radicava ORS Starter Kit 105MG/5ML suspension (PA APPROVED)) 11/10/2023 Telephone [facility] [address] [phone] Yemi Bacon MD Medication Request (Nuedexta) 11/10/2023 7:30 AM CDT Virtual Visit [facility] [address] [facility] [address],[place] [phone] Lisset Quiros, Encounter for nonprocreative genetic counseling (Primary Dx); ALS (amyotrophic lateral sclerosis) (H) 11/10/2023 1:00 PM CDT Office Visit [address] [phone] Yemi Bacon MD ALS (amyotrophic lateral sclerosis) (H) (Primary Dx) 11/09/2023 Refill [facility] Multiple Sclerosis [address] [phone] Natacha Meade RPH Refill Request 11/09/2023 MyC Medical Advice [facility] Multiple Sclerosis [address] [phone] Natacha Meade RPH 11/09/2023 9:00 AM CDT Virtual Visit [facility] Multiple Sclerosis [address] [phone] Yemi Bacon MD Puchalla, Sara, RPH ALS (amyotrophic lateral sclerosis) (H) (Primary Dx); Anxiety; Hypothyroidism; Seasonal allergic rhinitis, unspecified trigger; Vasomotor symptoms due to menopause 11/08/2023 Orders Only [facility] [address] [phone] Irma Batista LPN ALS (amyotrophic lateral sclerosis) (H) (Primary Dx) 11/02/2023 Travel 11/02/2023 1:30 PM CDT Office Visit [facility] [address] [phone] Yemi Bacon MD ALS (amyotrophic lateral sclerosis) (H) (Primary Dx); Acquired amyotrophic lateral sclerosis (H) 11/02/2023 1:00 PM CDT Office Visit [facility] Pulmonary Function Testing [address] [phone] Muscle weakness (generalized) 10/28/2023 Orders Only [facility] [address] [phone] Irma Batista LPN Muscle weakness (generalized) (Primary Dx) 10/28/2023 Telephone [facility] [address] [phone] None Referral (ALS Multidisciplinary Clinic/) [...] Next Due COVID-19 MONOVALENT 12+ (Pfizer) 04/15/2020,03/05 [id number] Novel Flu 02/10/2009 Hepatitis A (ADULT 19+) [...] Care Team (Late st Contact Info) Description 02/14/2024 9:00 AM SQUADRON WORKER Virtual Visit [facility] [address] [facility] 2nd [place] [phone] Yemi Bacon MD [address] [place] [address] [id number] [place], [place] [address] Natacha Meade, [facility] [address] [place], [place] [address] Procedures Procedure Name Priority Date/Time Associated Diagnosis [...] PM CDT ALS (amyotrophic lateral sclerosis) (H) PA RESPIRATORY FLOW VOLUME LOOP Routine 11/02/2023 1:02 PM CDT Muscle weakness (generalized) PA MIP/MEP Routine 11/02/2023 1:02 PM CDT Muscle [...] Recently Relevant to Health Maintenance Results * Laboratory Miscellaneous Result (11/10/2023 3:59 PM CDT) Test Name [facility] 12/16/2023 9:50 AM CDT MISCELLANEOUS TESTING See Scanned Result LABORATORY MISCELLANEOUS RESULT-Scanned 12/16/2023 9:50 AM CDT MISCELLANEOUS TESTING Blood STRUCTURE OF RIGHT UPPER LIMB / Unknown Venipuncture / Unknown 11/10/2023 3:59 PM CDT 11/10/2023 3:59 PM CDT Yemi Bacon MD LAB - BLOOD ORDERABL ES MISCELLANEOUS TESTING * Other Laboratory; prevention genetics; sponsored ALS panel with [id number] and ATXN2 repeat analysis test code 17721 (Laboratory Miscellaneous Order) (11/10/2023 3:59 PM CDT) Specimen Status Specimen received. Reordered and sent to performing laboratory. Report to follow up on completion. [facility] 11/11/2023 1:24 PM CDT LABORATORY Performing Laboratory prevention genetics [facility] 11/11/2023 1:24 PM CDT [facility]ORATORY - CORE LAB Test Name sponsored ALS panel with [id number] and ATXN2 repeat analysis test code [address]30 [facility] 11/11/2023 1:24 PM CDT [facility] LABORATORY - CORE LAB Blood STRUCTURE OF RIGHT UPPER LIMB / Unknown Venipuncture / Unknown 11/10/2023 3:59 PM CDT 11/10/2023 3:59 PM CDT Yemi Bacon MD LAB - BLOOD ORDERABL ES U LABORATORY [facility] [place] Core Lab [address] [facility], [address] [place] [address] LABORATORY - CORE LAB [facility] [place] [address] [facility] 1st [place] [address] * Muscle-Specific Kinase Antibody Screen with Reflex to Titer (11/10/2023 3:59 PM CDT) Pathologist [facility] Muscle-Specific Kinase Antibody Screen <1:10 <1:10 11/14/2023 10:59 PM CDT [employer] Comment: MuSK Antibody, IgG is not detected. [...] developed and its performance characteristics determined by [employer]. It has not been cleared or approved by the U.S. Food and Drug Administration. This test was performed in a CLIA-certified laboratory and is intended for clinical purposes. Performed By: [employer] [address] [place] [address] Profiling Machine Setup Operator: Fidel Cornell MD, PhD CLIA Number: [id number] Blood BLOOD SPECIMEN / Unknown Venipuncture / Unknown 11/10/2023 3:59 PM CDT 11/10/2023 3:59 PM CDT Yemi Bacon MD LAB - BLOOD ORDERABL ES [employer] [address] [id number], [facility] [phone] * Hepatic panel (11/10/2023 3:59 PM CDT) Protein Total 7.2 6.4 - 8.3 g/dL 11/10/2023 4:26 PM CDT [facility]AT[facility] - CORE LAB Albumin 4.4 3.5 - 5.2 g/dL 11/10/2023 4:26 PM CDT [facility] - CORE LAB Bilirubin Total 0.3 <=1.2 mg/dL 11/10/2023 4:26 PM CDT [facility] - CORE LAB Alkaline Phosphatase 70 40 - 150 U/L 11/10/2023 4:26 PM CDT [facility] - CORE LAB AST 23 0 - 45 U/L 11/10/2023 4:26 PM CDT [facility] LAB[facility]AT[facility] - CORE LAB ALT 14 0 - 50 U/L 11/10/2023 4:26 PM CDT [facility] - CORE LAB Bilirubin Direct <0.20 0.00 - 0.30 mg/dL 11/10/2023 4:26 PM CDT [facility] - CORE LAB Blood STRUCTURE OF RIGHT UPPER LIMB / Unknown Venipuncture / Unknown 11/10/2023 3:59 PM CDT 11/10/2023 3:59 PM CDT Yemi Bacon MD LAB - BLOOD ORDERABL ES [facility] LAB[facility]AT[facility] - CORE LAB [facility] [address] 1st [place] [address] * Pulmonary Function Test (11/02/2023 12:50 PM CDT) FVC-Pred 3.14 L [facility] PFT FVC-Pre 3.29 L [facility]REEZE PFT FVC-%Pred-Pre 104 % [facility] FEV1-Pre 2.67 L [facility]ZE PFT FEV1-%Pred-Pre 107 % [facility] PFT [id number] 80 % [facility] PFT [id number]-Dgh 81 % [facility]FT FEFMax-Pred 6.63 L/sec [facility]ZE PFT FEFMax-Pre 5.47 L/sec [facility]REEZE PFT FEFMax-%Pred-Pr e 82 % [facility]ZE PFT [id number] 2.27 L/sec [facility] PFT [id number]-Daq 2.74 L/sec [facility]REEZE PFT EMB1830-%Pred-P re 120 % [facility] PFT ExpTime-Pre 5.71 sec [facility]REEZE PFT FIFMax-Pre 2.04 L/sec [facility]ZE PFT MEP-Pre 70 cmH2O [facility]ZE PFT MIP-Pre -50 cmH2O [facility]REEZE PFT [id number] 81 % [facility] PFT [id number]-Hpt 82 % [facility]FT 11/02/2023 12:5 0 PM CDT Narrative [facility] PFT - 11/03/2023 6:37 PM CDT The FVC, FEV1, FEV1/FVC ratio and JGW54-14% are within normal limits. IMPRESSION: Normal Spirometry. [...] CDT) Glucose 88 60 - 110 mg/dL [facility] 08/03/2005 9:11 AM CDT 08/03/2005 9:13 AM CDT Felipe Thomas MD LABORATORY Performing Organization Address City/[facility]/ZIP Co de Phone Number [facility] * (ABNORMAL) A.M.A. LIPID PANEL (08/03/2005 9:11 AM CDT) Cholesterol 147 0 - 200 mg/dL [facility] Comment: LDL Cholesterol is the primary guide to therapy: LDL-cholesterol goal in high risk patients is <100 mg/dL and in very high risk patients is <70 mg/dL. The NCEP recommends further evaluation of: patients with cholesterol <200 mg/dL if additional risk factors are present, cholesterol >240 mg/dL, triglycerides >150 mg/dL, or HDL <40 mg/dL. Triglycerides 73 0 - 150 mg/dL [facility] HDL Cholesterol 45(L) 50 - 110 mg/dL [facility] LDL Cholesterol Calculated 87 0 - 129 mg/dL [facility] Comment: LDL Cholesterol is the primary guide to therapy: LDL-cholesterol goal in high risk patients is <100 mg/dL and in very high risk patients is <70 mg/dL. VLDL-Cholesterol 15 0 - 30 mg/dL [facility] Cholesterol/HDL Ratio 3.2 0.0 - 5.0 [facility] 08/03/2005 9:11 AM CDT 08/03/2005 9:13 AM CDT Felipe Thomas MD LABORATORY Performing Organization Address City/[facility]/ZIP Co de Phone Number [facility] * TSH W/FREE T4 REFLEX (07/20/2005 11:40 AM CDT) TSH 3.64 0.4 - 5.0 mU/L [facility] 07/20/2005 11:4 0 AM CDT 07/20/2005 11:42 AM CDT Felipe Thomas MD LABORATORY [facility] * A THIN LAYER PAP SCREEN (07/20/2005 12:00 AM CDT) PAP NIL COPATH Copath Report Patient Name: MAGALY HINOJOSA MR#: [id number] Specimen #: [id number] Collected: 07/20/2005 Received: 07/21/2005 Reported: 07/22/2005 08:34 [...] HUBER Finn (ASCP) Processed and screened at [facility] CLINICAL HISTORY: Irregular Bleeding Other: spotting, Previous normal pap Date of Last Pap: 3 Other: history previous abnormal 8 years ago/colpo normal paps since that time), TESTING LAB LOCATION: [address] ??[phone] COLLECTION SITE: Client: ??[facility] Location: [facility] (R) COPATH 07/20/2005 07/21/2005 10: 18 AM CDT Felipe Thomas MD LABORATORY COPATH from Last 3 Months or Most Recently Relevant to Health Maintenance Care Teams Fruit Sprayer Relationship Specialty Start Date End Date Felipe Thomas MD [facility] [address] [place] [address] PCP - General 07/13/05 Natacha Meade RPH [address] [place] [address] Pharmacist Pharmacist 11/09/23 Natacha Meade RPH [address] [place] [address] Assigned MTM Pharmacist 11/25/23 Yemi Bacon MD [address] [place] [address] [id number] [place], [place] [phone] Assigned Neuroscience Provider 11/25/23
--- OUTSIDE RECORDS SUMMARY | 2024-01-06 21:56 | XMS_ITS | Clinical Summary ---
Author Organization [place] Address [address] [place] [address]. [place] [address] Care Team Providers Care Wrecking Supervisor Name Role Phone Felipe Thomas MD Primary Care Provider Natacha Meade [facility] Unavailable [phone] Natacha Meade [facility] Unavailable [phone] Yemi Bacon MD Unavailable Allergies Active Allergy Reactions Criticality Noted Date [...] Date Type Department Care Team Description 01/06/2024 [facility] Neurology [address] [phone] Yemi Bacon MD 01/05/2024 [facility] Neurology [address] [address] Yemi Bacon MD 12/30/2023 MyC Medical Advice [facility] [address] [phone] Yemi Bacon MD 12/29/2023 MyC Medical Advice [facility] [address] [phone] Yemi Bacon MD 12/26/2023 MyC Medical Advice [facility] Neu[facility] [address] [phone] Yemi Bacon MD 12/23/2023 [facility] Neurology [address] [phone] Yemi Bacon MD 12/21/2023 [facility] Neurology [address] [phone] Yemi Bacon MD OTHER (dextromethorphan-quiNI Dine (NUEDEXTA) 20-10 MG capsule Appeal ) 12/13/2023 [facility] [address],[place] [phone] Lisset Quiros, GC Results 12/13/2023 MyC Medical Advice [facility] [address] [place] [phone] Katerina Cervantes, ROUND CORNER CUTTER OPERATOR 12/07/2023 Telephone [facility] [address] [phone] Yemi Bacon MD Patient/info Update (Regarding PA for dextromethorphan-quiNID ine (NUEDEXTA) 20-10 MG capsule) 12/06/2023 MyC Medical Advice [facility] Neu[facility] [address] [phone] Yemi Bacon MD 11/25/2023 MyC Medical Advice [facility] Multiple Sclerosis [address] [phone] Natacha Meade, [facility] 11/23/2023 MyC Medical Advice [facility] [address] [phone] Yemi Bacon MD 11/23/2023 MyC Medical Advice [facility] [address] [phone] Yemi Bacon MD 11/23/2023 MyC Medical Advice [facility] [address] [phone] Yemi Bacon MD 11/23/2023 MyC Medical Advice [facility] [address] [phone] Yemi Bacon MD 11/17/2023 MyC Medical Advice [facility] [address] [phone] Irma Batista, PEBBLES 11/17/2023 MyC Medical Advice [facility] [address] [address] Yemi Bacon MD 11/14/2023 Telephone [facility] [address] [address] Yemi Bacon MD Prior Auth - Medication (dextromethorphan-quiNI Dine (NUEDEXTA) 20-10 MG capsule -EPA DENIED) 11/11/2023 MyC Medical Advice [facility] [address] [address] Yemi Bacon MD 11/10/2023 3:45 PM CDT Lab [facility] [address] [phone] ALS (amyotrophic lateral sclerosis) (H) 11/10/2023 2:15 PM CDT Therapy Visit [facility] [address] [phone] Katerina Cervantes, ROUND CORNER CUTTER OPERATOR ALS (amyotrophic lateral sclerosis) (H) (Primary Dx); Dysarthria; Oropharyngeal dysphagia 11/10/2023 1:00 PM CDT Office Visit [facility] [address] [phone] Yemi Bacon MD ALS (amyotrophic lateral sclerosis) (H) (Primary Dx) 11/10/2023 7:30 AM CDT Virtual Visit [facility] [address] [facility] [address],[place] [phone] Lisset Quiros, Encounter for nonprocreative genetic counseling (Primary Dx); ALS (amyotrophic lateral sclerosis) (H) 11/10/2023 MyC Medical Advice [facility] [address] [phone] Yemi Bacon MD 11/10/2023 Allied Health/Nurse Visit [facility] [address] [phone] Yemi Bacon MD ALS (amyotrophic lateral sclerosis) (H) (Primary Dx) 11/10/2023 Travel 11/10/2023 Telephone [facility] [address] [phone] Yemi Bacon MD Prior Auth - Medication (Radicava ORS Starter Kit 105MG/5ML suspension ([place] APPROVED)) 11/10/2023 Telephone [facility] [address] [phone] Yemi Bacon MD Medication Request (Nuedexta) 11/09/2023 9:00 AM CDT Virtual Visit [facility] Multiple Sclerosis [address] [phone] Yemi Bacon MD [place], Sara [facility] ALS (amyotrophic lateral sclerosis) (H) (Primary Dx); Anxiety; Hypothyroidism; Seasonal allergic rhinitis, unspecified trigger; Vasomotor symptoms due to menopause 11/09/2023 Refill [facility] [address] [phone] Natacha Meade [facility] Refill Request 11/09/2023 MyC Medical Advice [facility] Sclerosis [address] [phone] Natacha Meade RPH 11/08/2023 Orders Only [facility] [address] [phone] Irma Batista LPN ALS (amyotrophic lateral sclerosis) (H) (Primary Dx) 11/02/2023 1:30 PM CDT Office Visit [facility] [address] [phone] Yemi Bacon MD ALS (amyotrophic lateral sclerosis) (H) (Primary Dx); Acquired amyotrophic lateral sclerosis (H) 11/02/2023 1:00 PM CDT Office Visit [facility] Pul[facility] Function Testing [address] [place] [address] Muscle weakness (generalized) 11/02/2023 Travel 10/28/2023 Orders Only [facility] [address] [phone] Irma Batista LPN Muscle weakness (generalized) (Primary Dx) 10/28/2023 Telephone [facility] [address] [phone] None Referral (ALS Multidisciplinary Clinic/) 10/27/2023 Transcribe Orders GENERIC EXTERNAL DATA DEPARTMENT Provider, Generic External Data Acquired amyotrophic lateral sclerosis (H) (Primary Dx) from Last 3 Months Immunizations Name Administration Dates Next Due COVID-19 MONOVALENT 12+ (Pfizer) 04/15/2020,03/05 [id number] Novel Flu 02/10/2009 Hepatitis A (ADULT 19+) [...] st Contact Info) Description 02/14/2024 9:00 AM GRAB DRIVER Virtual Visit [facility] 2nd [place] [address] Yemi Bacon MD [address] [place] [address] [id number] [place], [place] [phone] Natacha Meade, [address] [phone] Health Maintenance Due Date Last Done Comments [...] MAMMO SCREENING 01/02/2009 01/02/2007 LIPID 08/03/2010 08/03/2005 COVID-19 Vaccine ( season) 2023 03/03/2023, 05/14/2022, 02/08/2021, Additional history exists INFLUENZA VACCINE (#1) 2023 2, 01/22/2020, 01/11/2019, Additional history exists DTAP/TDAP/TD IMMUNIZATION (2 - Td or Tdap) 12/21/2027 12/20/2017 RSV VACCINE (1 - 1-dose 75+ series) 2039 ZOSTER IMMUNIZATION Completed 08/01/2023, 3 PHQ-2 (once [...] PM CDT ALS (amyotrophic lateral sclerosis) (H) CT RESPIRATORY FLOW VOLUME LOOP Routine 11/02/2023 1:02 PM CDT Muscle weakness (generalized) CT MIP/MEP Routine 11/02/2023 1:02 PM CDT Muscle [...] Result (11/10/2023 3:59 PM CDT) Test Name [facility] 12/16/2023 9:50 AM CDT MISCELLANEOUS TESTING See Scanned Result LABORATORY MISCELLANEOUS RESULT-Scanned 12/16/2023 9:50 AM CDT MISCELLANEOUS TESTING Blood STRUCTURE OF RIGHT UPPER LIMB / Unknown Venipuncture / Unknown 11/10/2023 3:59 PM CDT 11/10/2023 3:59 PM CDT Yemi Bacon MD LAB - BLOOD ORDERABL ES MISCELLANEOUS TESTING * Other Laboratory; prevention genetics; sponsored ALS panel with [id number] and ATXN2 repeat analysis test code 27562 (Laboratory Miscellaneous Order) (11/10/2023 3:59 PM CDT) Specimen Status Specimen received. Reordered and sent to performing laboratory. Report to follow up on completion. [facility] 11/11/2023 1:24 PM CDT LABORATORY Performing Laboratory prevention genetics [facility] 11/11/2023 1:24 PM CDT [facility] Test Name sponsored ALS panel with [id number] and ATXN2 repeat analysis test code 27829 [facility] 11/11/2023 1:24 PM CDT [facility] Blood STRUCTURE OF RIGHT UPPER LIMB / Unknown Venipuncture / Unknown 11/10/2023 3:59 PM CDT 11/10/2023 3:59 PM CDT Yemi Bacon MD LAB - BLOOD ORDERABL ES LABORATORY [facility] Core Lab [address] [facility], [address] [place] [address] LABORATORY - CORE LAB [facility] Clinics and Surgery [facility] [address] [facility] 1st [place] [address] * Muscle-Specific Kinase Antibody Screen with Reflex to Titer (11/10/2023 3:59 PM CDT) Muscle-Specific Kinase Antibody Screen <1:10 <1:10 11/14/2023 10:59 PM CDT [facility] Comment: MuSK Antibody, IgG is not [...] developed and its performance characteristics determined by [facility]. It has not been cleared or approved by the U.S. Food and Drug Administration. This test was performed in a CLIA-certified laboratory and is intended for clinical purposes. Performed By: [facility] [address] [place] [address] Communications Strategist: Fidel Cornell MD, PhD CLIA Number: [id number] Blood BLOOD SPECIMEN / Unknown Venipuncture / Unknown 11/10/2023 3:59 PM CDT 11/10/2023 3:59 PM CDT Yemi Bacon MD LAB - BLOOD ORDERABL ES [facility] [address] [place] [phone], [facility] [phone] * Hepatic panel (11/10/2023 3:59 PM CDT) Pathologist [facility] Protein Total 7.2 6.4 - 8.3 g/dL 11/10/2023 4:26 PM CDT [facility] Albumin 4.4 3.5 - 5.2 g/dL 11/10/2023 4:26 PM CDT [facility] Bilirubin Total 0.3 <=1.2 mg/dL 11/10/2023 4:26 PM CDT [facility] Alkaline Phosphatase 70 40 - 150 U/L 11/10/2023 4:26 PM CDT [facility] AST 23 0 - 45 U/L 11/10/2023 4:26 PM CDT [facility] ALT 14 0 - 50 U/L 11/10/2023 4:26 PM CDT [facility] Bilirubin Direct <0.20 0.00 - 0.30 mg/dL 11/10/2023 4:26 PM CDT [facility] Blood STRUCTURE OF RIGHT UPPER LIMB / Unknown Venipuncture / Unknown 11/10/2023 3:59 PM CDT 11/10/2023 3:59 PM CDT Yemi Bacon MD LAB - BLOOD ORDERABL ES [facility] Clinics and Surgery [address] 1st [place] [address] * Pulmonary Function Test (11/02/2023 12:50 PM CDT) FVC-Pred 3.14 L [facility] FVC-Pre 3.29 L [facility]FT FVC-%Pred-Pre 104 % [facility] FEV1-Pre 2.67 L [facility] PFT FEV1-%Pred-Pre 107 % [facility] [id number] 80 % [facility]FT [id number] 81 % [facility]FT FEFMax-Pred 6.63 L/sec [facility] PFT FEFMax-Pre 5.47 L/sec [facility] PFT FEFMax-%Pred-Pr e 82 % [facility]FT [id number] 2.27 L/sec [facility] PFT [id number] 2.74 L/sec [facility]FT GTB2125-%Pred-P re 120 % [facility]FT ExpTime-Pre 5.71 sec [facility] PFT FIFMax-Pre 2.04 L/sec [facility]FT MEP-Pre 70 cmH2O [facility] PFT MIP-Pre -50 cmH2O [facility] PFT [id number] 81 % [facility]FT [id number]-Okm 82 % [facility] 11/02/2023 12:5 0 PM CDT Narrative [facility] - 11/03/2023 6:37 PM CDT The FVC, FEV1, FEV1/FVC ratio and PWU90-98% are within normal limits. IMPRESSION: Normal Spirometry. [...] CDT) Glucose 88 60 - 110 mg/dL [facility] 08/03/2005 9:11 AM CDT 08/03/2005 9:13 AM CDT Felipe Thomas MD LABORATORY Performing Organization Address City/[facility] Co de Phone Number [facility] * (ABNORMAL) A.M.A. LIPID PANEL (08/03/2005 9:11 AM CDT) Cholesterol 147 0 - 200 mg/dL [facility] Comment: LDL Cholesterol is the primary guide to therapy: LDL-cholesterol goal in high risk patients is <100 mg/dL and in very high risk patients is <70 mg/dL. The NCEP recommends further evaluation of: patients with cholesterol <200 mg/dL if additional risk factors are present, cholesterol >240 mg/dL, triglycerides >150 mg/dL, or HDL <40 mg/dL. Triglycerides 73 0 - 150 mg/dL [facility] HDL Cholesterol 45(L) 50 - 110 mg/dL [facility] LDL Cholesterol Calculated 87 0 - 129 mg/dL [facility] Comment: LDL Cholesterol is the primary guide to therapy: LDL-cholesterol goal in high risk patients is <100 mg/dL and in very high risk patients is <70 mg/dL. VLDL-Cholesterol 15 0 - 30 mg/dL [facility] Cholesterol/HDL Ratio 3.2 0.0 - 5.0 [facility] 08/03/2005 9:11 AM CDT 08/03/2005 9:13 AM CDT Felipe Thomas MD LABORATORY [facility] * TSH W/FREE T4 REFLEX (07/20/2005 11:40 AM CDT) TSH 3.64 0.4 - 5.0 mU/L [facility] 07/20/2005 11:4 0 AM CDT 07/20/2005 11:42 AM CDT Felipe Thomas MD LABORATORY [facility] * A THIN LAYER PAP SCREEN (07/20/2005 12:00 AM CDT) PAP VALENTINA Mosqueda Report Patient Name: MAGALY HINOJOSA MR#: [id number] Specimen #: [id number] Collected: 07/20/2005 Received: 07/21/2005 Reported: 07/22/2005 08:34 [...] HUBER Finn (ASCP) Processed and screened at [facility], [facility] CLINICAL HISTORY: Irregular Bleeding Other: spotting, Previous normal pap Date of Last Pap: 3 Other: history previous abnormal 8 years ago/colpo normal paps since that time), TESTING LAB LOCATION: [address] ??[address] COLLECTION SITE: Client: ??[facility] Location: [facility]FP (R) COPATH 07/20/2005 07/21/2005 10: 18 AM CDT Felipe Thomas MD LABORATORY COPATH from Last 3 Months or Most Recently Relevant to Health Maintenance Care Teams Wrecking Supervisor Relationship Specialty Start Date End Date Felipe Thomas MD [facility] [address] [place] [address] PCP - General 07/13/05 Natacha Meade Luis Angel [address] [place] [address] Pharmacist Pharmacist 11/09/23 Natacha Meade RPH [address] [place] [address] Assigned MTM Pharmacist 11/25/23 Yemi Bacon MD [address] [place] [address] [id number] [place] [address] Assigned Neuroscience Provider 11/25/23
--- OUTSIDE RECORDS SUMMARY | 2024-01-06 21:56 | XMS_ITS | Encounter Summary ---
Author Organization [place] Address [address] [place] [address]. [place] [address] Care Team Providers Care Painter Helper Name Role Phone Nicanor Thomas MD Primary Care Provider Natacha Meade [facility] Unavailable [phone] Natacha Meade [facility] Unavailable [phone] Yemi Bacon MD Unavailable Reason for Visit * Reason Onset Date Comments OTHER 12/21/2023 dextromethorphan -quiNIDine (NUEDEXTA) 20-10 MG capsule Appeal Encounter Details Date Type Department Care Team (Late st Contact Info) Description 12/21/2023 Telephone [facility] [address] [place] [address] Yemi Bacon MD [address] [place] [address] [id number] [place] [address] OTHER (dextromethorphan-quiNI Dine (NUEDEXTA) 20-10 MG capsule Appeal ) Social History Tobacco Use Types Packs/Day [...] Telephone Encounter - Natacha Meade RPH - 12/22/2023 9:25 AM CDT Nuedexta would need to be appealed through insurance. Patient and were trying to obtain medication through drug company but have not heard yet heard the outcome. International Project Manager called patient and left message requesting a call back. International Project Manager called patient's who states the drug company has denied their request. They would like to proceed with the appeal or have Dr. Bacon contact them to discuss further. Natacha [place]ade, PharmD, BCACP Medication Therapy Management Pharmacist [facility] Neurology * Telephone Encounter - Yarelis Maravilla - 12/21/2023 8:29 AM CDT [facility] Phone Message May a detailed message be left on voicemail: yes Reason for Call: Medication Question or concern regarding medication Prescription Clarification Name of Medication: dextromethorphan-quiNIDine (NUEDEXTA) 20-10 MG capsule Prescribing Provider: Dr. Bacon Pharmacy: N/A What on the order needs clarification? Pt's insurance [employer] called and stated that the medication listed above needs to be appealed through them as they states the medication has been denied twice. [employer] stated the appeal can be submitted electronically. Please contact them via phone with additional questions at [phone] Action Taken: Message routed to: [facility] Neurology Travel Screening: Not Applicable documented in this encounter Plan of Treatment Upcoming Encounters Date Type Department Care Team (Late st Contact Info) Description 02/14/2024 9:00 AM DRAW OPERATOR Virtual Visit [facility] Neurology [facility] [address] [facility] 2nd [place] [phone] Yemi Bacon MD [address] [place] [address] [id number] [place] [address] Natacha Meade [address] [phone] documented as of this encounter Visit Diagnoses Not on filedocumented in this encounter Care Teams Painter Helper Relationship Specialty Start Date End Date Nicanor Thomas MD [facility] [address] [place] [address] PCP - General 07/13/05 Natacha Meade RPH [address] [place] [address] [phone] Pharmacist Pharmacist 11/09/23 Natacha Meade [facility] [address] [place] [address] [id number] Assigned MTM Pharmacist 11/25/23 Yemi Bacon MD [address] [place] [address] [id number] [place] [address] Assigned Neuroscience Provider 11/25/23 documented as of this encounter
--- OUTSIDE RECORDS SUMMARY | 2024-01-06 21:56 | XMS_ITS | Encounter Summary ---
Author Organization [place] Address [address] [place] [address]. [place] [address] Care Team Providers Care Design Project Manager Name Role Phone Nicanor Thomas MD Primary Care Provider Natacha Meade [facility] Unavailable [phone] Natacha Meade [facility] Unavailable [phone] Yemi Bacon MD Unavailable Encounter Details Date Type Department Care Team (Late st Contact Info) Description 01/06/2024 Telephone [facility] Clinic [address] 3rd [place] [address] Yemi Bacon MD [address] [place] [address] [id number] [place] [address] Social History Tobacco Use Types Packs/Day [...] encounter Miscellaneous Notes * Telephone Encounter - Miguel Story - 01/06/2024 9:38 AM CDT Spoke with Olivia on 01/06/24. She has already cancelled her 01/[address] Bacon, and isscheduled elsewhere. I wished her the very best. Jameson Story documented in this encounter Plan of Treatment Upcoming Encounters Date Type Department Care Team (Late st Contact Info) Description 02/14/2024 9:00 AM MFT Virtual Visit [facility] Neurology [address]nd [place] [phone] Yemi Bacon MD [address] [place] [address] [id number] Natacha Meade [address] [address] documented as of this encounter Visit Diagnoses Not on filedocumented in this encounter Care Teams Design Project Manager Relationship Specialty Start Date End Date Nicanor Thomas MD [facility] [address] [place] [address] PCP - General 07/13/05 Natacha Meade [facility] [address] [place] [phone] Pharmacist Pharmacist 11/09/23 [facility] [address] [place] [address] Assigned [place] Pharmacist 11/25/23 Yemi Bacon MD [address] [place] [address] Assigned Neuroscience Provider 11/25/23 documented as of this encounter
--- OUTSIDE RECORDS SUMMARY | 2024-01-06 21:56 | XMS_ITS | Encounter Summary ---
Author Organization [place] Address [address] [place] [address]. [place] [address] Care Team Providers Care Plant Operations Coordinator Name Role Phone Nicanor Thomas MD Primary Care Provider Natacha Meade [facility] Unavailable [phone] Natacha Meade [facility] Unavailable [phone] Yemi Bacon MD Unavailable Encounter Details Date Type Department Care Team (Late st Contact Info) Description 12/26/2023 MyC Medical Advice [facility] Neurology Clinic [address] [address] Yemi Bacon MD [address] [place] [address] [id number] [place] [address] Social History Tobacco Use Types [...] st Contact Info) Description 02/14/2024 9:00 AM SALES SUPPORT REPRESENTATIVE Virtual Visit [facility] Neurology [address]nd [place] [phone] Yemi Bacon MD [address] [place], [place] [id number], [place] [phone] Natacha Meade [address] [phone] documented as of this encounter Visit Diagnoses Not on filedocumented in this encounter Care Teams Plant Operations Coordinator Relationship Specialty Start Date End Date Nicanor Thomas MD [facility] [address] [address] PCP - General 07/13/05 Natacha Meade [facility] [address] [place] [address] [phone] Pharmacist Pharmacist 11/09/23 Natacha Meade [facility] [address] [place] [address] [phone] Assigned MTM Pharmacist 11/25/23 Yemi Bacon MD [address] [place], [place] [id number], [place] [address] Assigned Neuroscience Provider 11/25/23 documented as of this encounter
--- OUTSIDE RECORDS SUMMARY | 2024-01-06 21:56 | XMS_ITS | Encounter Summary ---
Author Organization [place] Address [address] [place] [address]. [place] [address] Care Team Providers Care Product Marketing Director Name Role Phone Nicanor Thomas MD Primary Care Provider Natacha Meade [facility] Unavailable [phone] Natacha Meade [facility] Unavailable [phone] Yemi Bacon MD Unavailable Encounter Details Date Type Department Care Team (Late st Contact Info) Description 12/23/[address] [facility] Neurology Clinic [address] 3rd [place] [address] Yemi Bacon MD [address] [place] [address] [id number] [place] [address] Social History Tobacco Use Types [...] encounter Miscellaneous Notes * Telephone Encounter - Yemi Bacon MD - 12/23/2023 5:09 PM CDT I called Ms Hinojosa today and discussed the following: SQSTM1 VUS: I will speak with colleagues for further input about the potential pathogenicity for ALS and the potential for interventions to the extent that SQSTM1 pathogenic variants may involve a GOF mechanism. I suggested a bone scan to test for Paget's disease of the bone. She prefers not to pursue this butis open to my informally or formally requesting endocrinology input on this as well as her mildly elevated PTH. Of note, alkaline phosphatase is normal. I explained that the rationale for Nuedexta in her case is for its potential to help with speech. 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 She has a strong interest in clinical trials and was not aware that we are recruiting for the COMBAT trial. She provided consent for me to share her information with the coordinator for that study. We discussed her upcoming appointment on January 11. I would like her to undergo PFT at that appointment and to see our ROAD PATCHER to re-evaluate swallowing. She does not feel the need to see our other therapists. We had a general discussion of the rationale for follow up visits in ALS multidisciplinary clinics,to identify needs to maximize safety and function. Yemi Bacon M.D. documented in this encounter Plan of Treatment Upcoming Encounters Date Type Department Care Team (Late st Contact Info) Description 02/14/2024 9:00 AM TAKE OUT WAITER Virtual Visit [facility] Neurology [address] 2nd [place] [address] Yemi Bacon MD [address] [place] [address] [id number] [place], [place] 765[address] Natacha Meade, [address] 035135 documented as of this encounter Visit Diagnoses Not on filedocumented in this encounter Care Teams Product Marketing Director Relationship Specialty Start Date End Date Nicanor Thomas MD [facility] [address] [facility] [facility] [address] [address] [place] [address] PCP - General 07/13/05 Natacha Meade RPH [address] [place] [address] Pharmacist Pharmacist 11/09/23 Natacha Meade RPH [address] [place] [address] Assigned MTM Pharmacist 11/25/23 Yemi Bacon MD [address] [place] [address] [id number] [place] [address] Assigned Neuroscience Provider 11/25/23 documented as of this encounter
--- OUTSIDE RECORDS SUMMARY | 2024-01-06 21:56 | XMS_ITS | Encounter Summary ---
Author Organization [place] Address [address] [place] [address]. [place] [address] Care Team Providers Care Guard Driver Name Role Phone Nicanor Thomas MD Primary Care Provider Natacha Meade [facility] Unavailable [phone] Natacha Meade [facility] Unavailable [phone] Yemi Bacon MD Unavailable Encounter Details Date Type Department Care Team (Late st Contact Info) Description 01/05/2024 [facility] Neurology Clinic [address]rd [place] [address] Yemi Bacon MD [address] [place] [address] [id number] [place] [address] Social History Tobacco Use Types [...] encounter Miscellaneous Notes * Telephone Encounter - Cresencio Hailey - 01/05/2024 9:12 AM CDT [facility] Call Center Phone Message May a detailed message be left on voicemail: yes Reason for Call: [place] of [facility] Insurance requesting appeal form signed and faxed to: [facility] fax [phone] For medicaton Nuedexta Action Taken: Other: [facility] Travel Screening: Not Applicable Date of Service: documented in this encounter Plan of Treatment Upcoming Encounters Date Type Department Care Team (Late st Contact Info) Description 02/14/2024 9:00 AM SHOE FITTER Virtual Visit [facility] Neurology [address] 2nd [place] [phone] Yemi Bacon MD [address] [place] [address] Natacha Meade [address] [address] documented as of this encounter Visit Diagnoses Not on filedocumented in this encounter Care Teams Guard Driver Relationship Specialty Start Date End Date Nicanor Thomas MD COUNT INCLUDES THE [facility] [address] [address] PCP - General 07/13/05 Natacha Meade RPH [address] [place] [place] [address] Pharmacist Pharmacist 11/09/23 Natacha Meade RPH [address] [place] [place] [address] [facility] Pharmacist 11/25/23 Yemi Bacon MD [address] [place] [address] Assigned Neuroscience Provider 11/25/23 documented as of this encounter
--- OUTSIDE RECORDS SUMMARY | 2024-01-06 21:56 | XMS_ITS | Encounter Summary ---
Author Organization [place] Address [address] [place] [address]. [place] [address] Care Team Providers Care Isobutylene Operator Chief Name Role Phone Nicanor Thomas MD Primary Care Provider Natacha Meade [facility] Unavailable [phone] Natacha Meade [facility] Unavailable [phone] Yemi Bacon MD Unavailable Encounter Details Date Type Department Care Team (Late st Contact Info) Description 12/30/2023 MyC Medical Advice [facility] Neurology Clinic [address] [address] Yemi Bacon MD [address] [place] [address] [id number] [place] [address] Social History Tobacco Use Types [...] st Contact Info) Description 02/14/2024 9:00 AM YOKER Virtual Visit [facility] Neurology [address] 2nd [place] [phone] Yemi Bacon MD [address] [place], [place] [id number] [place], [place] [address] Natacha Meade [address] [id number] documented as of this encounter Visit Diagnoses Not on filedocumented in this encounter Care Teams Isobutylene Operator Chief Relationship Specialty Start Date End Date Nicanor Thomas MD [facility] [address] [place] [address] PCP - General 07/13/05 Natacha Meade [facility] [address] [place] [address] [phone] Pharmacist Pharmacist 11/09/23 Natacha Meade [facility] [address] [place] [address] [phone] Assigned MTM Pharmacist 11/25/23 Yemi Bacon MD [address] [place], [place] [id number] [place], [place] [address] Assigned Neuroscience Provider 11/25/23 documented as of this encounter
--- OUTSIDE RECORDS SUMMARY | 2024-01-06 21:56 | XMS_ITS | Encounter Summary ---
Author Organization [facility] Address [address] [place] [address]. [place] [address] Care Team Providers Care High Speed Warper Tender Name Role Phone Nicanor Thomas MD Primary Care Provider Natacha Meade [facility] Unavailable [phone] Natacha Meade [facility] Unavailable [phone] Yemi Bacon MD Unavailable Encounter Details Date Type Department Care Team (Late st Contact Info) Description 12/29/2023 MyC Medical Advice [facility] Neurology Clinic [address] [address] Yemi Bacon MD [address] [place] [address] [id number] [place] [address] Social History Tobacco Use Types [...] st Contact Info) Description 02/14/2024 9:00 AM AGENCY SALES DIRECTOR Virtual Visit [facility] Neurology [address] [place] [address] Yemi Bacon MD [address] [place], [place] [id number], [place] [address] Natacha Meade [address] 2912[address] documented as of this encounter Visit Diagnoses Not on filedocumented in this encounter Care Teams High Speed Warper Tender Relationship Specialty Start Date End Date Nicanor Thomas MD [facility] [address] [place] [address] PCP - General 07/13/05 Natacha Meade [facility] [address] [place] [address] [phone] Pharmacist Pharmacist 11/09/23 Natacha Meade [facility] [address] [place] [address] [phone] Assigned MTM Pharmacist 11/25/23 Yemi Bacon MD [address] [place], [place] [id number], [place] 8[address] Assigned Neuroscience Provider 11/25/23 documented as of this encounter
--- OUTSIDE RECORDS SUMMARY | 2024-01-06 21:57 | XMS_ITS | Encounter Summary ---
Author Organization [facility] Address [address] [place] [address]. [place] [address] Care Team Providers Care Photo Technologist Name Role Phone Nicanor Thomas MD Primary Care Provider Natacha Meade [facility] Unavailable [phone] Natacha Meade [facility] Unavailable [phone] Yemi Bacon MD Unavailable Reason for Visit * Reason Onset Date Comments Prior Auth - Medication 11/14/2023 dextrome thorphan-quiNIDine (NUEDEXTA) 20-10 MG capsule -EPA DENIED Encounter Details Date Type Department Care Team (Late st Contact Info) Description 11/14/2023 Telephone [facility] Neurology Clinic [address] [address] Yemi Bacon MD [address] [place], [place] [id number], [place] [address] Prior Auth - Medication (dextromethorphan-quiNI Dine (NUEDEXTA) [...] encounter Miscellaneous Notes * Telephone Encounter - Krista Chandler - 12/12/2023 11:47 AM CDT [employer] was transferred to [place] team- Asked for tried/failed medications be faxed. Received fax request, sent back information as requested. * Telephone Encounter - Gabby Gutierrez - 11/24/2023 5:30 PM CDT Images from the original note were not included. * Telephone Encounter - Gabby Gutierrez - 11/24/2023 12:28 PM CDT Images from the original note were not included. Re-initiated authorization with chart notes * Telephone Encounter - Hailey Multani - 11/17/2023 10:17 AM CDT Health Call Center Phone Message May a detailed [...] NUEDEXTA 20-10 MG PO CAPS Insurance Company: [employer] [place] - Denial Date: 11/12/2023 Denial Reason(s): Needs to try/fail Tricyclic Antidepressants Appeal Information: Patient Notified: No documented in this encounter Plan of Treatment Upcoming Encounters Date Type Department Care Team (Late st Contact Info) Description 02/14/2024 9:00 AM CHIP MUCKER Virtual Visit [facility] Neurology [place] [address] [facility] 2nd [place] [address] Yemi Bacon MD [address] [place], [place] [id number] [place], [place] [address] Natacha Meade [address] 0656[address] documented as of this encounter Visit Diagnoses Not on filedocumented in this encounter Care Teams Photo Technologist Relationship Specialty Start Date End Date Nicanor Thomas MD [facility] [address] [place] [address] PCP - General 07/13/05 Natacha Meade [facility] [address] [place] [address] Pharmacist Pharmacist 11/09/23 Natacha Meade [facility] [address] [place] [address] Assigned [place] Pharmacist 11/25/23 Yemi Bacon MD [address] [place] [address] [address] Assigned Neuroscience Provider 11/25/23 documented as of this encounter
--- OUTSIDE RECORDS SUMMARY | 2024-01-06 21:57 | XMS_ITS | Encounter Summary ---
Author Organization [place] Address [address] [place] [address]. [place] [address] Care Team Providers Care Tap Builder Name Role Phone Nicanor Thomas MD Primary Care Provider Natacha Meade [facility] Unavailable [phone] Natacha Meade [facility] Unavailable [phone] Yemi Bacon MD Unavailable Encounter Details Date Type Department Care Team (Late st Contact Info) Description 11/23/[address] [facility] Neurology Clinic [address] [address] Yemi Bacon MD [address] [place] [address] [id number] [place] [address] Social History Tobacco Use Types [...] st Contact Info) Description 02/14/2024 9:00 AM IDENTIFICATION CLERK Virtual Visit [facility] Neurology [address] 2nd [place] [phone] Yemi Bacon MD [address] [place], [place] [id number], [place] [address] Natacha Meade [address] [address] documented as of this encounter Visit Diagnoses Not on filedocumented in this encounter Care Teams Tap Builder Relationship Specialty Start Date End Date Nicanor Thomas MD [facility] [address] [address] PCP - General 07/13/05 Natacha Meade [facility] [address] [place] [address] [phone] Pharmacist Pharmacist 11/09/23 Natacha Meade [facility] [address] [place] [address] [phone] Assigned MTM Pharmacist 11/25/23 Yemi Bacon MD [address] [place], [place] [address]J [place], [place] [address] Assigned Neuroscience Provider 11/25/23 documented as of this encounter
--- OUTSIDE RECORDS SUMMARY | 2024-01-06 21:57 | XMS_ITS | Encounter Summary ---
Author Organization [place] Address [address] [place] [address]. [place] [address] Care Team Providers Care Stick Roller Name Role Phone Nicanor Thomas MD Primary Care Provider Natacha Meade [facility] Unavailable [phone] Natacha Meade [facility] Unavailable [phone] Yemi Bacon MD Unavailable Reason for Visit * Reason Onset Date Comments Patient/info Update 12/07/2023 Regarding PA for dextromethorphan-quiNIDine (NUEDEXTA) 20-10 MG capsule Encounter Details Date Type Department Care Team (Late st Contact Info) Description 12/07/2023 Telephone [facility] Neurology Clinic [address] [place] [address] Yemi Bacon MD [address] [place], [place] [id number], [place] [address] Patient/info Update (Regarding PA for dextromethorphan-quiNID ine (NUEDEXTA) 20-10 MG capsule) Social History Tobacco Use Types Packs/Day Years [...] encounter Miscellaneous Notes * Telephone Encounter - Radha Tony - 12/07/2023 11:10 AM CDT [facility] Call Center Phone Message May a detailed message be left on voicemail: yes Reason for Call: Other: Keli from [facility] [place] calling to provide the information that would help tomove things faster for Mag[facility]'s prior authorization . 1. Send a reconsideration request to [facility] [employer] at fax number [phone]. Mikey in bold, urgent reconsideration request, please evaluate for diagnosis of ALS (G12.21). 2. List medications tried and failed related to diagnosis of or any symptoms of ALS and length of time taken. 3. Signs/symptoms of the aspect of condition she is taking the drug for. 4. Indication of why step therapy would not be appropriate in her situation (having taken a TCA and/or SSRI). Certification number: [id number] Keli also stated that Magaly has been approved for the rare disease mandate by [facility]. Action Taken: Message routed to: [facility] Travel Screening: Not Applicable Date of Service: documented in this encounter Plan of Treatment Upcoming Encounters Date Type Department Care Team (Late st Contact Info) Description 02/14/2024 9:00 AM FISH HATCHERY LABORER Virtual Visit [facility] Neurology [facility] [address] [facility] 2nd [place] [address] Yemi Bacon MD [address] [place] [address] [id number] [place], [place] [phone] Natacha Meade [facility] [place], [place] 8[address] documented as of this encounter Visit Diagnoses Not on filedocumented in this encounter Care Teams Stick Roller Relationship Specialty Start Date End Date Nicanor Thomas MD [facility] [address] [place] [address] PCP - General 07/13/05 Natacha Meade RPH [address] [place] [address] [phone] Pharmacist Pharmacist 11/09/23 Natacha Meade [facility] [address] [place] [address] Assigned MTM Pharmacist 11/25/23 Yemi Bacon MD [address] [place] [address] [id number] [place] [address] Assigned Neuroscience Provider 11/25/23 documented as of this encounter
--- OUTSIDE RECORDS SUMMARY | 2024-01-06 21:57 | XMS_ITS | Encounter Summary ---
Author Organization [place] Address [address] [place] [address]. [place] [address] Care Team Providers Care Filer Metal Patterns Name Role Phone Nicanor Thomas MD Primary Care Provider Natacha Meade [facility] Unavailable [phone] Reason for Visit * Consultation (Routine: Next available opening) - Pending Review Specialty Diagnoses / Procedures Referred By Paolo llanos Referred To Contact Genetics, Clinical Diagnoses ALS (amyotrophic lateral sclerosis) (H) Yemi Bacon MD [address] [facility] [id number] [place] [address] Referral ID Status Reason Start Date Expiration Date V isits Requested Visits Authorized [id number] Pending Review 11/04/2023 11/03/2024 1 1 Encounter Details Date Type Department Care Team (Late st Contact Info) Description 11/10/2023 7:30 AM CDT Virtual Visit [facility] [address] [place] [address] Clinic 12th Fl[address],[place] [address] Lisset Quiros, GC [address] [place] [address] Encounter for nonprocreative genetic counseling (Primary [...] a hexanucleotide repeat expansion (GGGGCC) in the Y6ecs13 gene. The number of hexanucleotide repeats in the Q3jsp49 gene ranges from 2 to >4000. The precise cutoff of between normal and pathogenic (disease causing) is complicated by multiple factors, but generally <25 is considered normal and >60 is considered pathogenic. Repeat expansions in the W6lqk95 gene account for approximately 39-45% of familial [...] genetic testing is to begin testing the N8aqb63 gene to determine if an individual has a normal number of hexanucleotide repeats (<25) or an expanded number of hexanucleotide repeats (>60). If that testing identifies normal repeats on both copies of L2zym45, then testing can be expanded to a [...] program. Plan: 1. Sponsored ALS panel with B7jqv22 and ATXN2 repeat analysis at [employer]. 2. Return pending results of above testing 3. Contact information was provided should any questions arise in the future. Lisset Quiros [facility] Genetic Counselor Division of Genetics and Metabolism (p) [phone] (f) [phone] Total time spent in consultation with the family was approximately 28 minutes Cc: No Letter documented in this encounter Plan of Treatment Upcoming Encounters Date Type Department Care Team (Late st Contact Info) Description 02/14/2024 9:00 AM TOBACCO SPRAYER Virtual Visit [facility] Neurology [facility] [facility] 2nd [place] [address] Yemi Bacon MD [address] [place] [address] [id number] [place], [place] 7899[address] Natacha Meade, [facility] [address] [place], [place] 129[address] documented as of this encounter Results * Other Laboratory; prevention genetics; sponsored ALS panel with [id number] and ATXN2 repeat analysis test code [id number] (Laboratory Miscellaneous Order) (11/10/2023 3:59 PM CDT) Specimen Status Specimen received. Reordered and sent to performing laboratory. Report to follow up on completion. [facility] 11/11/2023 1:24 PM CDT LABORATORY Performing Laboratory prevention genetics [facility] 11/11/2023 1:24 PM CDT [facility] Test Name sponsored ALS panel with N4iuk42 and ATXN2 repeat analysis test code [id number] [facility] 11/11/2023 1:24 PM CDT [facility] Blood STRUCTURE OF RIGHT UPPER LIMB / Unknown Venipuncture / Unknown 11/10/2023 3:59 PM CDT 11/10/2023 3:59 PM CDT Yemi Bacon MD LAB - BLOOD ORDERABL ES LABORATORY [facility] [place] Core Lab [address] [facility] [address] Building, Room 3-580 [place] [address], [facility]ORAT[facility] - CORE LAB [facility] - [address] 1st [place] [address] documented in this encounter Visit Diagnoses Diagnosis Encounter for nonprocreative genetic counseling- Primary ALS (amyotrophic lateral sclerosis) (H) Amyotrophic lateral sclerosis documented in this encounter Care Teams Filer Metal Patterns Relationship Specialty Start Date End Date Nicanor Thomas MD [facility] [address] [email or web address] 200 [place] [address] PCP - General 07/13/05 Natacha Meade RPH [address] [place] [address] Pharmacist Pharmacist 11/09/23 documented as of this encounter
--- OUTSIDE RECORDS SUMMARY | 2024-01-06 21:57 | XMS_ITS | Encounter Summary ---
Author Organization [place] Address [address] [place] [address]. [place] [address] Care Team Providers Care Heavy Repairer Name Role Phone Nicanor Thomas MD Primary Care Provider Natacha Meade [facility] Unavailable [phone] Reason for Visit * Rehab Therapy Physical Therapy (Routine) - Referral NOT Required Specialty Diagnoses / Procedures Referred By Paolo llanos Referred To Contact Physical Therapy Procedures CLINIC-ADULT ALS [address] [address] Referral ID Status Reason Start Date Expiration Date V isits Requested Visits Authorized [id number] Referral NOT Required 11/10/2023 04/03/[phone] Encounter Details Date Type Department Care Team (Latest Contact Info) Description 11/10/2023 2:15 PM CDT Therapy Visit [address] 3rd [place] [address] Katerina Cervantes, ENVIRONMENTAL PROFESSIONAL [address] [place] [address] [phone] ALS (amyotrophic lateral sclerosis) (H) (Primary Dx); [...] this encounter Progress Notes * Katerina Cervantes, ENVIRONMENTAL PROFESSIONAL - 11/10/2023 2:15 PM CDT SPEECH LANGUAGE [...] not recommended at this time Dysphagia Intervention: ENVIRONMENTAL PROFESSIONAL educated in swallowing anatomy and physiology including [...] Preservation, educatedin AAC as below Communication Intervention: ENVIRONMENTAL PROFESSIONAL provided education regarding lingual and labial impact on speech and articulation. ENVIRONMENTAL PROFESSIONAL trained use of speech strategies to improve intelligibility and reduce fatigue with speaking (reducing background noise, facing the conversation partner, speaking slowly, exaggerating each sound, repeating words or rewording message, using as few words as possible, planning aheadto reduce impact of fatigue). ENVIRONMENTAL PROFESSIONAL also trained conversational partners present today regarding listener strategies (giving speaker full attention, letting the speaker know if message not understood, repeating the part of the message that was understood so speaker only needs to repeat the part that was missed, asking yes/no questions when able). ENVIRONMENTAL PROFESSIONAL introduced concept of Augmentative-Alternative Communication and demonstrated use of voxapp Board and iPad with AAC nora (Editorial Clerk) both for communication and to demonstrate voice [...] good Rehab potential is impacted by: comorbidities Mcc Goals: Based on today's evaluation session patient [...] (sum of timed and untimed services): 22 Community Development Technician Present: Not applicable Signing Clinician: ABDULLAHI Marc documented in this encounter Plan of Treatment Upcoming Encounters Date Type Department Care Team (Late st Contact Info) Description 02/14/2024 9:00 AM HEARING AID SPECIALIST Virtual Visit [facility] Neurology [facility] [address] [place] [address] Yemi Bacon MD [address] [place] [address] [id number] [place], [place] 238[address] Natacha Meade[address] [address] documented as of this encounter Visit Diagnoses Diagnosis ALS (amyotrophic lateral sclerosis) (H)- Primary Amyotrophic lateral sclerosis Dysarthria Oropharyngeal dysphagia Dysphagia, oropharyngeal phase documented in this encounter Care Teams Heavy Repairer Relationship Specialty Start Date End Date Nicanor Thomas MD [facility] [address] [facility] [address] [place] [address] PCP - General 07/13/05 Natacha Meade [facility] [address] [place] [address] [phone] Pharmacist Pharmacist 11/09/23 documented as of this encounter
--- OUTSIDE RECORDS SUMMARY | 2024-01-06 21:57 | XMS_ITS | Encounter Summary ---
Author Organization [place] Address [address] [place] [address]. [place] [address] Care Team Providers Care Quality Coordinator Name Role Phone Nicanor Thomas MD Primary Care Provider Natacha Meade [facility] Unavailable [phone] Reason for Visit * Reason Onset Date Comments Refill Request 11/10/2023 Encounter Details Date Type Department Care Team (Late st Contact Info) Description 11/09/2023 Refill [facility] [address] [address] Natacha Meade, [address] [address] Refill Request Social History Tobacco Use Types [...] AM CDT Patient was seen today for [place] visit to start Radicava ORS. Pending starter kit and maintenance dose prescriptions for Dr. Bacon to review and sign. Prescriptions will be sent to [facility] unless insurance requires alternate pharmacy. documented in this encounter Plan of Treatment Upcoming Encounters Date Type Department Care Team (Late st Contact Info) Description 02/14/2024 9:00 AM RECREATIONAL THERAPY TECHNICIAN Virtual Visit [facility] [place] [address] [facility] 2nd [place] [address] Yemi Bacon MD [address] [place] [id number] [place], [place] [address] Natacha Meade RPH [address] [place] [address] documented as of this encounter Visit Diagnoses Diagnosis ALS (amyotrophic lateral sclerosis) (H)- Primary Amyotrophic lateral sclerosis documented in this encounter Care Teams Quality Coordinator Relationship Specialty Start Date End Date Nicanor Thomas MD [facility] [address] [address] PCP - General 07/13/05 Natacha Meade RPH [address] [place] [address] Pharmacist Pharmacist 11/09/23 documented as of this encounter
--- OUTSIDE RECORDS SUMMARY | 2024-01-06 21:57 | XMS_ITS | Encounter Summary ---
Author Organization [place] Address [address] [place] [address]. [place] [address] Care Team Providers Care Barrel Filler Head Name Role Phone Nicanor Thomas MD Primary Care Provider Natacha Meade [facility] Unavailable [phone] Natacha Meade [facility] Unavailable [phone] Yemi Bacon MD Unavailable Encounter Details Date Type Department Care Team (Late st Contact Info) Description 11/23/2023 MyC Medical Advice [facility] Clinic [address] [address] Yemi Bacon MD [address] [place] [address] [id number] [place] [address] Social History Tobacco Use Types [...] st Contact Info) Description 02/14/2024 9:00 AM POWER WASHER Virtual Visit [facility] Neurology [address]nd [place] [address] Yemi Bacon MD [address] [place], [place] [id number] [place], [place] [address] Natacha Meade [address] [address] documented as of this encounter Visit Diagnoses Not on filedocumented in this encounter Care Teams Barrel Filler Head Relationship Specialty Start Date End Date Nicanor Thomas MD [facility] [address] [address] PCP - General 07/13/05 Natacha Meade [facility] [address] [place] [address] [phone] Pharmacist Pharmacist 11/09/23 Natacha Meade [facility] [address] [place] [address] [phone] Assigned MTM Pharmacist 11/25/23 Yemi Bacon MD [address] [place], [place] [id number] [place], [place] 38[address] Assigned Neuroscience Provider 11/25/23 documented as of this encounter
--- OUTSIDE RECORDS SUMMARY | 2024-01-06 21:57 | XMS_ITS | Encounter Summary ---
Author Organization [place] Address [address] [place] [address]. [place] [address] Care Team Providers Care Curer Foam Rubber Name Role Phone Nicanor Thomas MD Primary Care Provider Natacha Meade [facility] Unavailable [phone] Natacha Meade [facility] Unavailable [phone] Yemi Bacon MD Unavailable Reason for Visit * Reason Onset Date Comments Prior Auth - Medication 11/10/2023 Radicava ORS Starter Kit 105MG/5ML suspension ([place] APPROVED) Encounter Details Date Type Department Care Team (Late st Contact Info) Description 11/10/2023 Telephone [facility]rology Clinic [address] [place] [address] Yemi Bacon MD [address] [place] [address] [id number] [place] [address] Prior Auth - Medication (Radicava ORS Starter Kit 105MG/5ML suspension ([place] APPR[place])) Social History Tobacco Use Types Packs/Day Years [...] * Telephone Encounter - Jessica Ariza - 12/07/2023 12:34 PM CDT Images from the original note were not included. Enrolled patient in a copay card: Thank you, Jessica Ariza [facility] Clinic Liaison - Cardiology Neurology [address] [address] * Telephone Encounter - Jessica Ariza - 12/07/2023 12:17 PM CDT Images from the original note were not included. Prior Authorization Approval Medication: RADICAVA ORS STARTER KIT 105 MG/5ML PO SUSP Authorization Effective Date: 11/06/2023 Authorization Expiration Date: 06/04/2024 Approved Dose/Quantity: 28 days/70mL Reference #: Insurance Company: [facility] - Expected CoPay: $410.89 CoPay Card Available: Financial Assistance Needed: Yes Which Pharmacy is filling the prescription: [facility] [place], [place] - [address] [place] [address] Pharmacy Notified: Yes Patient Notified: Yes Thank you, Jessica Ariza [facility] Clinic Liaison - Cardiology Neurology [address] [address] * Telephone Encounter - Jessica Ariaz - 12/06/2023 2:42 PM CDT Images from the original note were not included. Resubmitted PA with additional information: Thank you, Jessica Ariza [facility] Clinic Liaison - Cardiology Neurology Multiple Sclerosis [address] [address] [email or web address] * Telephone Encounter - Jessica Ariza - 11/10/2023 10:42 AM CDT Images from the original note were not included. PA Initiation Medication: RADICAVA ORS STARTER KIT 105 MG/5ML PO SUSP Insurance Company: [employer] [place] - Pharmacy Filling the Rx: [facility] [place], [place] - [address] Filling Pharmacy Phone: Filling Pharmacy Fax: Start Date: 11/10/2023 Thank you, Jessica Ariza [facility] Clinic Liaison - Cardiology Neurology Multiple Sclerosis [address] [address] [email or web address] documented in this encounter Plan of Treatment Upcoming Encounters Date Type Department Care Team (Late st Contact Info) Description 02/14/2024 9:00 AM TATTOO ARTIST Virtual Visit [facility] Neurology [facility] 2nd [place] [address] Yemi Bacon MD [address] [place] [address] [id number] [place], [place] [phone] Natacha Meade [address] [phone] documented as of this encounter Visit Diagnoses Not on filedocumented in this encounter Care Teams Curer Foam Rubber Relationship Specialty Start Date End Date Nicanor Thomas MD [facility] [address] [place] [address] [place] [address] PCP - General 07/13/05 Natacha Meade RPH [address] [place] [address] [phone] Pharmacist Pharmacist 11/09/23 Natacha Meade [facility] [address] [place] [address] Assigned MTM Pharmacist 11/25/23 Yemi Bacon MD [address] [place] [address] [id number] [place] [address] Assigned Neuroscience Provider 11/25/23 documented as of this encounter
--- OUTSIDE RECORDS SUMMARY | 2024-01-06 21:57 | XMS_ITS | Encounter Summary ---
Author Organization [place] Address [address] [place] [address]. [place] [address] Care Team Providers Care Laborer Hide House Name Role Phone Nicanor Thomas MD Primary Care Provider Natacha Meade [facility] Unavailable [phone] Natacha Meade [facility] Unavailable [phone] Yemi Bacon MD Unavailable Encounter Details Date Type Department Care Team (Late st Contact Info) Description 11/25/2023 MyC Medical Advice [facility] Sclerosis Clinic [address] [address] Natacha Meade, [address] [address] Social History Tobacco Use Types [...] st Contact Info) Description 02/14/2024 9:00 AM TANK COOPER Virtual Visit [facility] Neurology [address] [place] [phone] Yemi Bacon MD [address] [place], [place] [id number] [place], [place] [address] Natacha Meade [address] [address] documented as of this encounter Visit Diagnoses Not on filedocumented in this encounter Care Teams Laborer Hide House Relationship Specialty Start Date End Date Nicanor Thomas MD [facility] [address] [address] PCP - General 07/13/05 Natacha Meade [facility] [address] [place] [address] [phone] Pharmacist Pharmacist 11/09/23 Natacha Meade [facility] [address] [place] [address] [phone] Assigned MTM Pharmacist 11/25/23 Yemi Bacon MD [address] [place], [place] [address]CJ [place], [place] [address] Assigned Neuroscience Provider 11/25/23 documented as of this encounter
--- OUTSIDE RECORDS SUMMARY | 2024-01-06 21:57 | XMS_ITS | Encounter Summary ---
Author Organization [place] Address [address] [place] [address]. [place] [address] Care Team Providers Care Call Center Representative Name Role Phone Nicanor Thomas MD Primary Care Provider Natacha Meade [facility] Unavailable [phone] Natacha Meade [facility] Unavailable [phone] Yemi Bacon MD Unavailable Encounter Details Date Type Department Care Team (Late st Contact Info) Description 11/17/2023 MyC Medical Advice [facility] [address] 3rd [place] [address] Irma Batista LPN Social History Tobacco [...] st Contact Info) Description 02/14/2024 9:00 AM BELT CONVEYOR DRIER Virtual Visit [facility] Neurology [address] 2nd [place] [address] Yemi Bacon MD [address] [facility]2121CJ [place], [place] 605745 Natacha Meade [facility] 909 [place], [place] 998715 documented as of this encounter Visit Diagnoses Not on filedocumented in this encounter Care Teams Call Center Representative Relationship Specialty Start Date End Date Nicanor Thomas MD [facility] [address] [place] [address] PCP - General 07/13/05 Natacha Meade [facility] [address] [place] [address] Pharmacist Pharmacist 11/09/23 Natacha Meade [facility] [address] [place] [address] [phone] Assigned MTM Pharmacist 11/25/23 Yemi Bacon MD [address] [place], [place] [id number] [place], [place] 4[address]35 Assigned Neuroscience Provider 11/25/23 documented as of this encounter
--- OUTSIDE RECORDS SUMMARY | 2024-01-06 21:57 | XMS_ITS | Encounter Summary ---
Author Organization [place] Address [address] [place] [address]. [place] [address] Care Team Providers Care Mailing Section Clerk Name Role Phone Nicanor Thomas MD [...] st Contact Info) Description 02/14/2024 9:00 AM PRODUCTION UTILITY WORKER Virtual Visit [facility] Neurology [facility] [address] [facility] 2nd [place] [address] Yemi Bacon MD [address] [place] [address] [id number] [place], [place] [address] Natacha Meade[address] [phone] documented as of this encounter Visit Diagnoses Not on filedocumented in this encounter Care Teams Mailing Section Clerk Relationship Specialty Start Date End Date Nicanor Thomas MD [facility] [address] [place] [address] PCP - General 07/13/05 documented as of this encounter
--- OUTSIDE RECORDS SUMMARY | 2024-01-06 21:57 | XMS_ITS | Encounter Summary ---
Author Organization [place] Address [address] [place] [address]. [place] [address] Care Team Providers Care Inspector Welded Parts Name Role Phone Nicanor Thomas MD Primary Care Provider Natacha Meade [facility] Unavailable [phone] Natacha Meade [facility] Unavailable [phone] Yemi Bacon MD Unavailable Encounter Details Date Type Department Care Team (Late st Contact Info) Description 11/11/2023 MyC Medical Advice [facility] Neurology Clinic [address] [address] Yemi Bacon MD [address] [place] [address] [id number] [place] [address] Social History Tobacco Use Types [...] st Contact Info) Description 02/14/2024 9:00 AM MANAGER STERILE Virtual Visit [facility] Neurology [address]nd [place] [address] Yemi Bacon MD [address] [place], [place] [id number] [place], [place] [address] Natacha Meade [address] [phone] documented as of this encounter Visit Diagnoses Not on filedocumented in this encounter Care Teams Inspector Welded Parts Relationship Specialty Start Date End Date Nicanor Thomas MD [facility] [address] [address] PCP - General 07/13/05 Natacha Meade [facility] [address] [place] [address] [phone] Pharmacist Pharmacist 11/09/23 Natacha Meade [facility] [address] [place] [address] [phone] Assigned MTM Pharmacist 11/25/23 Yemi Bacon MD [address] [place], [place] [address]CJ [place], [place] [address] Assigned Neuroscience Provider 11/25/23 documented as of this encounter
--- OUTSIDE RECORDS SUMMARY | 2024-01-06 21:57 | XMS_ITS | Encounter Summary ---
Author Organization [place] Address [address] [place] [address]. [place] [address] Care Team Providers Care Highway Worker Name Role Phone Nicanor Thomas MD Primary Care Provider Natacha Meade [facility] Unavailable [phone] Natacha Meade [facility] Unavailable [phone] Yemi Bacon MD Unavailable Encounter Details Date Type Department Care Team (Late st Contact Info) Description 11/23/2023 MyC Medical Advice [facility] Neurology Clinic [address] [address] Yemi Bacon MD [address] [place] [address] [id number] [place] [address] Social History Tobacco Use Types [...] st Contact Info) Description 02/14/2024 9:00 AM CHEESEMAKER Virtual Visit [facility] Neurology [address]nd [place] [address] Yemi Bacon MD [address] [place], [place] [id number] [place], [place] [address] Natacha Meade [address] [address] documented as of this encounter Visit Diagnoses Not on filedocumented in this encounter Care Teams Highway Worker Relationship Specialty Start Date End Date Nicanor Thomas MD [facility] [address] [address] PCP - General 07/13/05 Natacha Meade [facility] [address] [place] [address] [phone] Pharmacist Pharmacist 11/09/23 Natacha Meade [facility] [address] [place] [address] [phone] Assigned MTM Pharmacist 11/25/23 Yemi Bacon MD [address] [place], [place] [id number] [place], [place] 986765 Assigned Neuroscience Provider 11/25/23 documented as of this encounter
--- OUTSIDE RECORDS SUMMARY | 2024-01-06 21:57 | XMS_ITS | Encounter Summary ---
Author Organization [place] Address [address] [place] [address]. [place] [address] Care Team Providers Care Job Placement Officer Name Role Phone Nicanor Thomas MD Primary Care Provider Natacha Meade [facility] Unavailable [phone] Reason for Referral * Medication Prior Authorization - Denied Specialty Diagnoses / Procedures Referred By Paolo llanos Referred To Contact Diagnoses ALS (amyotrophic lateral sclerosis) (H) Yemi Bacon MD [address] [place] [address] Referral ID Status Reason Start Date Expiration Date Visits Re quested Visits Authorized [id number] Denied 11/10/2023 11/09/2024 1 1 Reason for Visit * Reason Onset Date Comments Medication Request 11/10/2023 Nuedexta Encounter Details Date Type Department Care Team ([facility] st Contact Info) Description 11/10/2023 Telephone [facility] Neurology Clinic [address] 3rd [place] [address] Yemi Bacon MD [address] [place] [address] Medication Request (Nuedexta) Social History Tobacco Use [...] Meade, PharmD, BCACP Medication Therapy Management Pharmacist [facility] Neurology documented in this encounter Plan of Treatment Upcoming Encounters Date Type Department Care Team (Late st Contact Info) Description 02/14/2024 9:00 AM BIOCHEMISTRY TECHNICIAN Virtual Visit [facility] Neurology [address]nd [place] [address] Yemi Bacon MD [address] [place] [address] [id number] [place], [place] 851425 Natacha Meade RPH [address] [place] [address] [phone] documented as of this encounter Visit Diagnoses Diagnosis ALS (amyotrophic lateral sclerosis) (H)- Primary Amyotrophic lateral sclerosis documented in this encounter Care Teams Job Placement Officer Relationship Specialty Start Date End Date Nicanor Thomas MD [facility] [address] [address] PCP - General 07/13/05 Natacha Meade RPH [address] [place] [address] [phone] Pharmacist Pharmacist 11/09/23 documented as of this encounter
--- OUTSIDE RECORDS SUMMARY | 2024-01-06 21:57 | XMS_ITS | Encounter Summary ---
Author Organization [place] Address [address] [place] [address]. [place] [address] Care Team Providers Care Lead Loader Name Role Phone Nicanor Thomas MD Primary Care Provider Natacha Meade [facility] Unavailable [phone] Reason for Visit * Reason Comments RECHECK Encounter Details Date Type Department Care Team ([facility] st Contact Info) Description 11/10/2023 1:00 PM CDT Office Visit [facility]rology [facility] [address] 3rd [place] [address] Yemi Bacon MD [address] [place], [place] [id number], [place] [address] ALS (amyotrophic lateral sclerosis) (H) (Primary Dx) [...] questions or problems! Please call Keli @ [phone] for questions or concerns during regular business hours. For a more efficient way to communicate, use [employer] and address the message to your physician. Remember, LYCEEMt is only read during business hours. Do not leave urgent messages on [employer] or [employer]. If situation is urgent, contact the Neurology Clinic @ [phone] and ask to speak to a Triage [...] st Contact Info) Description 02/14/2024 9:00 AM GEOTECHNICIAL PROPERTIES TECHNICIAN Virtual Visit [facility] Neurology [facility] [address] [facility] 2nd [place] [phone] Yemi Bacon MD [address] [place] [address] [id number] [place] [address] Natacha Meade, [address] [id number] documented as of this encounter Results * Hepatic panel (11/10/2023 3:59 PM CDT) Pathologist [facility] Protein Total 7.2 6.4 - 8.3 g/dL 11/10/2023 4:26 PM CDT [facility] - [facility]ORE LAB Albumin 4.4 3.5 - 5.2 g/dL 11/10/2023 4:26 PM CDT [facility] - [facility]ORE LAB Bilirubin Total 0.3 <=1.2 mg/dL 11/10/2023 4:26 PM CDT [facility] - [facility]ORE LAB Alkaline Phosphatase 70 40 - 150 U/L 11/10/2023 4:26 PM CDT [facility] - CORE LAB AST 23 0 - 45 U/L 11/10/2023 4:26 PM CDT [facility] - [facility]ORE LAB ALT 14 0 - 50 U/L 11/10/2023 4:26 PM CDT [facility] - [facility]ORE LAB Bilirubin Direct <0.20 0.00 - 0.30 mg/dL 11/10/2023 4:26 PM CDT [facility] - [facility]ORE LAB Blood STRUCTURE OF RIGHT UPPER LIMB / Unknown Venipuncture / Unknown 11/10/2023 3:59 PM CDT 11/10/2023 3:59 PM CDT Yemi Bacon MD LAB - BLOOD ORDERABL ES [facility] - CORE LAB [facility] - [address] 1st [place] [address] documented in this encounter Visit Diagnoses Diagnosis ALS (amyotrophic lateral sclerosis) (H)- Primary Amyotrophic lateral sclerosis documented in this encounter Care Teams Lead Loader Relationship Specialty Start Date End Date Nicanor Thomas MD [facility] [address] [place] [address] PCP - General 07/13/05 Natacha Meade [facility] [address] [place] [phone] Pharmacist Pharmacist 11/09/23 documented as of this encounter
--- OUTSIDE RECORDS SUMMARY | 2024-01-06 21:57 | XMS_ITS | Encounter Summary ---
Author Organization [place] Address [address] [place] [address]. [place] [address] Care Team Providers Care Arbitrator Name Role Phone Nicanor Thomas MD Primary Care Provider Natacha Meade [facility] Unavailable [phone] Natacha Meade [facility] Unavailable [phone] Yemi Bacon MD Unavailable Reason for Visit * Reason Onset Date Comments Results 12/13/2023 Encounter Details Date Type Department Care Team (Late st Contact Info) Description 12/13/2023 Telephone [facility] [address] [place] [address] Clinic 12th Fl[address],[place] [phone] Lisset Quiros GC [address] [place] [address] [phone] Results Social History Tobacco Use Types Packs/Day Years [...] encounter Miscellaneous Notes * Telephone Encounter - Lisset Quiros GC - 12/13/2023 2:51 PM CDT Spoke with Magaly and reviewed the following information: Dear Magaly Thank you for allowing me to be a part of your healthcare at the [facility]. At your visit on 12/13/23 your genetic test results were discussed. As we discussed, your genetic test results did not find any disease causing or pathogenic variants. 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 This letter is a brief summary of our discussion and these genetic test results. I have also included a copy of the lab report for your records. Our genes are sequences of letters that provide instructions that help our body grow, develop and function. We all have changes or variations in our genes that make us unique. Some variations cause the body to be unable to read the instructions. These variations are called pathogenic and can resultin a genetic condition. Your genetic testing looked at many of your genes related to ALS to determine if any variants or changes were present. 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 This variant is technically called c.352C>T. Variants of uncertain significance are changes in our genes that may or may not cause disease. Currently we have limited information regarding whether or not this variant is impacting your health. Individuals with one disease causing variant in their SQSTM1 gene are at an increased risk to develop Paget disease of the bone, ALS, distal myopathy and/or a type of dementia called frontotemporal dementia. Your genetic testing does not confirm a diagnosis of these conditions. The following information is provided for informational purposes only. SQSTM1 Paget disease of the bone is a condition that affects the body's process of recycling bone material. Individuals with this condition breakdown and rebuild bone too quickly leading to bones that are larger and softer that normal and that may be misshapen. Individuals with this condition may experience a variety of symptoms depending on which bones are affected. Commonly, this condition causes boneand joint pain and increased number of fractures. In severe cases, this increased bone recycling can put stress on the heart and kidneys leading to problems with the function of these organs. Amyotrophic lateral sclerosis (ALS) is a condition that affects the motor neurons. Motor neurons are responsible for sending the necessary signals to the muscles, to allow for movement and speech. InALS, these motor neurons break down and eventually lead to loss of speech and muscle control. This is a progressive disorder, meaning that the symptoms of this condition worsen over time. However, the rate of progression and muscles groups that are impacted the most is different for different individuals. For example, the first symptom that some people may experience is weakness in their throat muscles while others may experience weakness in an arm or a leg at the onset of symptoms. Distal myopathy is a general term for diseases that affect the muscles that connect to your bones (skeletal muscles). Individuals with SQSTM1-related distal myopathy often develop weakness in the facial muscles, the shoulder blades and the muscles that are farthest away from the center of the body.In these individuals, very specific changes can be seen on muscle biopsy and EMG studies. Individuals with this type of myopathy often do not experience symptoms until they are adults. Frontotemporal dementia (FTD) is a condition that affects the frontal and temporal lobes of the brain.These areas of the brain are located on the front and sides of your brain and are generally associated with personality, behavior and language. FTD causes these portions of the brain to shrink which can lead to a wide variety of symptoms including changes in personality, behavior, judgement, empathy, ability to understand the meaning of words, ability to give a name to people or objects and ability to pronounce certain words. People with FTD may also have slow or slurred speech and have difficulties putting sentences together. Disease causing changes in the SQSTM1 gene present differently in different people. Individuals with a variant in this gene may experience all, some or none of the conditions described above. Next Steps At this time, we are unable to determine if the variant of uncertain significance identified is disease causing or not. In the future, we may learn more about this variant and find out that it does explain your symptoms. Alternatively, we may also determine that it is not the cause of your symptoms. It is important that you continue to follow with your neurology team for medical care recommendations based on your symptoms. Thank you again for allowing us to be a part of your care. Please do not hesitate to contact me with additional questions or concerns. Sincerely, Lisset Quiros [facility] Genetic Counselor Division of Genetics and Metabolism (p) [phone] documented in this encounter Plan of Treatment Upcoming Encounters Date Type Department Care Team (Late st Contact Info) Description 02/14/2024 9:00 AM SLACK COOPER Virtual Visit [facility] Neurology [facility] 2nd [place] [phone] Yemi Bacon MD [address] [place] [address] Natacha Meade [address] [address] documented as of this encounter Visit Diagnoses Not on filedocumented in this encounter Care Teams Arbitrator Relationship Specialty Start Date End Date Nicanor Thomas MD [facility] [address] [place] [address] PCP - General 07/13/05 Natacha Meade [facility] [address] [place] [address] Pharmacist Pharmacist 11/09/23 Natacha Meade [facility] [address] [place] [address] Assigned [place] Pharmacist 11/25/23 Yemi Bacon MD [address] [place] [address] Assigned Neuroscience Provider 11/25/23 documented as of this encounter
--- OUTSIDE RECORDS SUMMARY | 2024-01-06 21:57 | XMS_ITS | Encounter Summary ---
Author Organization [place] Address [address] [place] [address]. [place] [address] Care Team Providers Care Brand Analyst Name Role Phone Nicanor Thomas MD Primary Care Provider Natacha Meade [facility] Unavailable [phone] Natacha Meade [facility] Unavailable [phone] Yemi Bacon MD Unavailable Encounter Details Date Type Department Care Team (Late st Contact Info) Description 12/06/2023 MyC Medical Advice [facility] Neurology Clinic [address] [address] Yemi Bacon MD [address] [place] [address] [id number] [place] [address] Social History Tobacco Use Types [...] st Contact Info) Description 02/14/2024 9:00 AM GENERATION MANAGER Virtual Visit [facility] Neurology [address] 2nd [place] [phone] Yemi Bacon MD [address] [place], [place] [id number], [place] [address] Natacha Meade [address] [address] documented as of this encounter Visit Diagnoses Not on filedocumented in this encounter Care Teams Brand Analyst Relationship Specialty Start Date End Date Nicanor Thomas MD [facility] [address] [address] PCP - General 07/13/05 Natacha Meade [facility] [address] [place] [address] [phone] Pharmacist Pharmacist 11/09/23 Natacha Meade [facility] [address] [place] [address] [phone] Assigned MTM Pharmacist 11/25/23 Yemi Bacon MD [address] [place], [place] [id number], [place] 57[address] Assigned Neuroscience Provider 11/25/23 documented as of this encounter
--- OUTSIDE RECORDS SUMMARY | 2024-01-06 21:57 | XMS_ITS | Encounter Summary ---
Author Organization [place] Address [address] [place] [address]. [place] [address] Care Team Providers Care Enrollment Coordinator Name Role Phone Nicanor Thomas MD Primary Care Provider Natacha Meade [facility] Unavailable [phone] Encounter Details Date Type Department Care Team [...] st Contact Info) Description 02/14/2024 9:00 AM CARTON WRAPPER Virtual Visit [facility] Neurology [facility] [address] [facility] 2nd [place] [address] Yemi Bacon MD [address] [place] [address] [id number] [place], [place] [address] Natacha Meade, [address] [address] documented as of this encounter Visit Diagnoses Not on filedocumented in this encounter Care Teams Enrollment Coordinator Relationship Specialty Start Date End Date Nicanor Thomas MD [facility] [address] [facility] [address] [place] [address] PCP - General 07/13/05 Natacha Meade [facility] [address] [place] [phone] Pharmacist Pharmacist 11/09/23 documented as of this encounter
--- OUTSIDE RECORDS SUMMARY | 2024-01-06 21:57 | XMS_ITS | Encounter Summary ---
Author Organization [place] Address [address] [place] [address]. [place] [address] Care Team Providers Care Sewing Machine Operator Zipper Name Role Phone Nicanor Thomas MD Primary Care Provider Natacha Meade [facility] Unavailable [phone] Encounter Details Date Type Department Care Team (Late Contact Info) Description 11/10/2023 3:45 PM CDT Lab [facility] Lab [address] 1st [place] [phone] ALS (amyotrophic lateral sclerosis) (H) Social History [...] Department Care Team (Late Contact Info) Description 02/14/2024 9:00 AM EMISSION TECHNICIAN Virtual Visit [facility] Neurology [facility] [address] [facility] 2nd [place] [address] Yemi Bacon MD [address] [place] [address] [id number] [place], [place] [address] Natacha Meade [facility] [address]09 [place] [address] documented as of this encounter Procedures Procedure [...] (H) documented in this encounter Results * Laboratory Miscellaneous Result (11/10/2023 3:59 PM CDT) Test Name [facility]LL 12/16/2023 9:50 AM CDT MISCELLANEOUS TESTING See Scanned Result LABORATORY MISCELLANEOUS RESULT-Scanned 12/16/2023 9:50 AM CDT MISCELLANEOUS TESTING Blood STRUCTURE OF RIGHT UPPER LIMB / Unknown Venipuncture / Unknown 11/10/2023 3:59 PM CDT 11/10/2023 3:59 PM CDT Yemi Bacon MD LAB - BLOOD ORDERABL ES MISCELLANEOUS TESTING * Muscle-Specific Kinase Antibody Screen with Reflex [...] developed and its performance characteristics determined by [facility] [employer]. It has not been cleared or approved by the U.S. Food and Drug Administration. This test was performed in a CLIA-certified laboratory and is intended for clinical purposes. Performed By: [facility] [employer] [address] [place] [address] Utility Teller: Fidel Cornell MD, PhD CLIA Number: [id number] Blood BLOOD SPECIMEN / Unknown Venipuncture / Unknown 11/10/2023 3:59 PM CDT 11/10/2023 3:59 PM CDT Yemi Bacon MD LAB - BLOOD ORDERABL ES [facility] M2M Solution [facility] [employer] [address] [place] [phone], [facility] [phone] * Other Laboratory; prevention genetics; sponsored ALS panel with [id number] and ATXN2 repeat analysis test code [id number] (Laboratory Miscellaneous Order) (11/10/2023 3:59 PM CDT) Specimen Status Specimen received. Reordered and sent to performing laboratory. Report to follow up on completion. [facility] 11/11/2023 1:24 PM CDT LABORATORY Performing Laboratory prevention genetics [facility] 11/11/2023 1:24 PM CDT [facility] Test Name sponsored ALS panel with [id number] and ATXN2 repeat analysis test code [id number] [facility] 11/11/2023 1:24 PM CDT [facility] Blood STRUCTURE OF RIGHT UPPER LIMB / Unknown Venipuncture / Unknown 11/10/2023 3:59 PM CDT 11/10/2023 3:59 PM CDT Yemi Bacon MD LAB - BLOOD ORDERABL ES Performing Organization Address [facility]/ZIP Co de Phone Number U LABORATORY [facility] [place] [facility] Lab [address] [facility] Building, Room 3-[address] [place] [address], [facility] - CORE [facility] Surgery [place] - [address] 1st [place] [address] * Hepatic panel (11/10/2023 3:59 PM CDT) Pathologist [facility] Protein Total 7.2 6.4 - 8.3 g/dL 11/10/2023 4:26 PM CDT [facility] Albumin 4.4 3.5 - 5.2 g/dL 11/10/2023 4:26 PM CDT [facility] Bilirubin Total 0.3 <=1.2 mg/dL 11/10/2023 4:26 PM CDT [facility] LAB Alkaline Phosphatase 70 40 - 150 U/L 11/10/2023 4:26 PM CDT [facility] AST 23 0 - 45 U/L 11/10/2023 4:26 PM CDT [facility] ALT 14 0 - 50 U/L 11/10/2023 4:26 PM CDT [facility] Bilirubin Direct <0.20 0.00 - 0.30 mg/dL 11/10/2023 4:26 PM CDT [facility] Blood STRUCTURE OF RIGHT UPPER LIMB / Unknown Venipuncture / Unknown 11/10/2023 3:59 PM CDT 11/10/2023 3:59 PM CDT Yemi Bacon MD LAB - BLOOD ORDERABL ES [facility] LAB [facility] Surgery [place] - [address] 1st [place] [address] documented in this encounter Visit Diagnoses Diagnosis ALS (amyotrophic lateral sclerosis) (H) Amyotrophic lateral sclerosis documented in this encounter Care Teams Sewing Machine Operator Zipper Relationship Specialty Start Date End Date Nicanor Thomas MD [facility] [address] [address] PCP - General 07/13/05 Natacha Meade [facility] 9 [place], [place] [address] Pharmacist Pharmacist 11/09/23 documented as of this encounter
--- OUTSIDE RECORDS SUMMARY | 2024-01-06 21:57 | XMS_ITS | Encounter Summary ---
Author Organization [place] Address [address] [place] [address]. [place] [address] Care Team Providers Care Frame Aligner Name Role Phone Nicanor Thomas MD Primary Care Provider Natacha Meade [facility] Unavailable [phone] Natacha Meade [facility] Unavailable [phone] Yemi Bacon MD Unavailable Encounter Details Date Type Department Care Team (Late st Contact Info) Description 12/13/2023 MyC Medical Advice [facility] Rehabilitation Services [address]rd [place] [address] Katerina Cervantes, PRODUCTION TRAINER [address] [place] [address] Social History Tobacco Use Types Packs/Day [...] st Contact Info) Description 02/14/2024 9:00 AM MINE SHIFTER Virtual Visit [facility] Neurology [address] 2nd [place] [phone] Yemi Bacon MD [address] [place], [place] [id number] [place], [place] [address] Natacha Meade [address] [address] documented as of this encounter Visit Diagnoses Not on filedocumented in this encounter Care Teams Frame Aligner Relationship Specialty Start Date End Date Nicanor Thomas MD [facility] [address] [address] PCP - General 07/13/05 Natacha Meade [facility] [address] [place] [address] [phone] Pharmacist Pharmacist 11/09/23 Natacha Meade [facility] [address] [place] [address] [phone] Assigned MTM Pharmacist 11/25/23 Yemi Bacon MD [address] [place], [place] [id number], [place] 57[address] Assigned Neuroscience Provider 11/25/23 documented as of this encounter
--- OUTSIDE RECORDS SUMMARY | 2024-01-06 21:57 | XMS_ITS | Encounter Summary ---
Author Organization [place] Address [address] [place] [address]. [place] [address] Care Team Providers Care Scraper Operator Name Role Phone Nicanor Thomas MD Primary Care Provider Natacha Meade [facility] Unavailable [phone] Natacha Meade [facility] Unavailable [phone] Yemi Bacon MD Unavailable Encounter Details Date Type Department Care Team (Late st Contact Info) Description 11/23/2023 MyC Medical Advice [facility] Neurology Clinic [address] [address] Yemi Bacon MD [address] [place] [address] [id number] [place] [address] Social History Tobacco Use Types [...] st Contact Info) Description 02/14/2024 9:00 AM RECORDER HELPER GRAVITY PROSPECTING Virtual Visit [facility] Neurology [address] [place] [phone] Yemi Bacon MD [address] [place], [place] [id number] [place], [place] [address] Natacha Meade [address] [address] documented as of this encounter Visit Diagnoses Not on filedocumented in this encounter Care Teams Scraper Operator Relationship Specialty Start Date End Date Nicanor Thomas MD [facility] [address] [address] PCP - General 07/13/05 Natacha Meade [facility] [address] [place] [phone] Pharmacist Pharmacist 11/09/23 Natacha Meade [facility] [address] [place] [address] [phone] Assigned MTM Pharmacist 11/25/23 Yemi Bacon MD [address] [place], [place] [id number] [place], [place] 9[address] Assigned Neuroscience Provider 11/25/23 documented as of this encounter
--- OUTSIDE RECORDS SUMMARY | 2024-01-06 21:57 | XMS_ITS | Encounter Summary ---
Author Organization [place] Address [address] [place] [address]. [place] [address] Care Team Providers Care Materials And Processes Manager Name Role Phone Nicanor Thomas MD Primary Care Provider Natacha Meade [facility] Unavailable [phone] Natacha Meade [facility] Unavailable [phone] Yemi Bacon MD Unavailable Encounter Details Date Type Department Care Team (Late st Contact Info) Description 11/17/2023 MyC Medical Advice [facility] Neurology Clinic [address] [address] Yemi Bacon MD [address] [place] [address] [id number] [place] [address] Social History Tobacco Use Types [...] st Contact Info) Description 02/14/2024 9:00 AM CONFIGURATION MANAGEMENT SPECIALIST Virtual Visit [facility] Neurology [address]nd [place] [phone] Yemi Bacon MD [address] [place], [place] [id number] [place], [place] [address] Natacha Meade [address] [address] documented as of this encounter Visit Diagnoses Not on filedocumented in this encounter Care Teams Materials And Processes Manager Relationship Specialty Start Date End Date Nicanor Thomas MD [facility] [address] [address] PCP - General 07/13/05 Natacha Meade [facility] [address] [place] [address] [phone] Pharmacist Pharmacist 11/09/23 Natacha Meade [facility] [address] [place] [address] [phone] Assigned MTM Pharmacist 11/25/23 Yemi Bacon MD [address] [place], [place] [id number] [place], [place] 46[address] Assigned Neuroscience Provider 11/25/23 documented as of this encounter
--- OUTSIDE RECORDS SUMMARY | 2024-01-06 21:57 | XMS_ITS | Encounter Summary ---
Author Organization [place] Address [address] [place] [address]. [place] [address] Care Team Providers Care Compliance Spec Name Role Phone Nicanor Thomas MD Primary Care Provider Natacha Meade [facility] Unavailable [phone] Reason for Referral * Therapeutic Services (Routine: Next available opening) - Pending Review Specialty Diagnoses / Procedures Referred By Paolo llanos Referred To Contact Diagnoses ALS (amyotrophic lateral sclerosis) (H) Yemi Bacon MD [address] [place] [address] Referral ID Status Reason Start Date Expiration Date V isits Requested Visits Authorized [id number] Pending Review 11/08/2023 11/07/2024 1 1 Question Answer Course of Action: Evaluation and Treatment Speech Treatment Diagnosis: Dysphagia Specialty Services: Per Associated Diagnosis Scheduling Instructions: als clinic Comments als clinic * Occupational Therapy (Routine: Next available opening) - Pending Review Specialty Diagnoses / Procedures Referred By Paolo llanos Referred To Contact Diagnoses ALS (amyotrophic lateral sclerosis) (H) Yemi Bacon MD [address] [place] [address] Referral ID Status Reason Start Date Expiration Date V isits Requested Visits Authorized [id number] Pending Review 11/08/2023 11/07/2024 1 1 Question [...] (amyotrophic lateral sclerosis) (H) Yemi Bacon MD [address] [place] [address] [id number] [place] [address] Referral ID Status Reason Start Date Expiration Date V isits Requested Visits Authorized [id number] Pending Review 11/08/2023 11/07/2024 1 1 Question [...] Care Team (Late Contact Info) Description 11/08/2023 [facility] [address] 3rd [place] [address] Irma Batista LPN ALS (amyotrophic lateral sclerosis) [...] st Contact Info) Description 02/14/2024 9:00 AM FARM IMPLEMENT ENGINE MECHANIC Virtual Visit [facility] Neurology MTM [address] [facility] 2nd [place] [address] Yemi Bacon MD [address] [facility] [id number] [place] [address] [address] Scheduled Referrals Name Type Priority Associated Diagnoses Order Schedule Physical Therapy Other Sports Coach Or Instructor Referral Referral Routine: Next available opening ALS (amyotrophic lateral sclerosis) (H) Expected: 11/08/2023 (Approximate), Expires: 11/07/2024 Occupational Therapy Other Sports Coach Or Instructor Referral Referral Routine: Next available opening ALS (amyotrophic lateral sclerosis) (H) Expected: 11/08/2023 (Approximate), Expires: 11/07/2024 Speech Therapy Other Sports Coach Or Instructor Referral Referral Routine: Next available opening ALS (amyotrophic lateral sclerosis) (H) Expected: 11/08/2023 (Approximate), Expires: 11/07/2024 documented as of this encounter Visit Diagnoses Diagnosis ALS (amyotrophic lateral sclerosis) (H)- Primary Amyotrophic lateral sclerosis documented in this encounter Care Teams Compliance Spec Relationship Specialty Start Date End Date Nicanor Thomas MD [facility] [address] [place] [address] PCP - General 07/13/05 Natacha Meade [facility] [address] [place] [address] Pharmacist Pharmacist 11/09/23 documented as of this encounter
--- OUTSIDE RECORDS SUMMARY | 2024-01-06 21:57 | XMS_ITS | Encounter Summary ---
Author Organization [facility] Address [address] [place] [address]. [place] [address] Care Team Providers Care Cco & President Name Role Phone Nicanor Thomas MD Primary Care Provider Natacha Meade [facility] Unavailable [phone] Reason for Visit * Reason Comments Medication Therapy Management * Med Therapy Management (Routine: Next available opening) - Closed Specialty Diagnoses / Procedures Referred By Contsuellen t Referred To Contact Pharmacist Diagnoses ALS (amyotrophic lateral sclerosis) (H) Yemi Bacon MD [address] [place] [address] Referral ID Status Reason Start Date Expiration Date Visits Re quested Visits Authorized [id number] Closed 11/04/2023 11/03/2024 1 1 Encounter Details Date Type Department Care Team (Late st Contact Info) Description 11/09/2023 9:00 AM CDT Virtual Visit [facility] Multiple Sclerosis [address] [address] Yemi Bacon MD [address] [place] [address] Natacha Meade, [address] [id number] ALS (amyotrophic lateral sclerosis) (H) (Primary Dx); [...] Patient Instructions * Patient Instructions* Natacha Meade, [facility] - 11/09/2023 9:00 AM CDT [...] orders have not already been sent to [facility], we will get these faxed [...] to take Radicava can be found here: [email or web address] Radicava will be filled at [facility] (unless your insurance requires a [...] receive an email or text message from [employer] with a link to a survey related to your ???clinical pharmacist. To schedule another MTM appointment, please call the clinic directly or you may call the MTM scheduling line at [phone] or toll-free at . My Clinical Pharmacist's contact information: Please feel free to contact me with any questions or concerns you have. Natacha Meade, PharmD, [facility] Medication Therapy Management Pharmacist [facility] Neurology documented in this encounter Progress Notes [...] for Radicava started and send prescription to [facility] unless insurance requires different pharmacy. [...] orders have not already been sent to [facility], we will get these faxed [...] to take Radicava can be found here: [email or web address] Radicava will be filled at [facility] (unless your insurance requires a [...] and requests to have these completed at [facility] near her home. She [...] summary of these recommendations was sent via [employer]. Natacha Meade, PharmD, BCACP Medication Therapy Management [facility]ist [facility] Telemedicine Visit Details Type of service: Telephone visit Start Time: 9:00 AM End Time: 9:41 AM Medication Therapy Recommendations No medication therapy recommendations to display documented in this encounter Plan of Treatment Upcoming Encounters Date Type Department Care Team (Late st Contact Info) Description 02/14/2024 9:00 AM ROLL UP HELPER Virtual Visit [facility] Neurology [facility] [address] [facility] 2nd [place] [address] Yemi Bacon MD [address] [place] [address] [id number] [place] [address] Natacha Meade RPH [address] [place] [address] Scheduled Referrals Name Type Priority Associated Diagnoses [...] menopause documented in this encounter Care Teams Cco & President Relationship Specialty Start Date End Date Nicanor Thomas MD [facility] [address] [address] PCP - General 07/13/05 Natacha Meade [facility] [address] [place] [address] Pharmacist Pharmacist 11/09/23 documented as of this encounter
--- OUTSIDE RECORDS SUMMARY | 2024-01-06 21:57 | XMS_ITS | Encounter Summary ---
Author Organization [facility] Address [address] [place] [address]. [place] [address] Care Team Providers Care Boring Machine Operator Name Role Phone Nicanor Thomas MD Primary Care Provider Natacha Meade [facility] Unavailable [phone] Encounter Details Date Type Department Care Team (Late st Contact Info) Description 11/10/2023 Allied Health/Nurse Visit [facility] [place] [facility] [address] 3rd [place] [address] Yemi Bacon MD [address] [place] [address] [id number] [place] [address] ALS (amyotrophic lateral sclerosis) (H) [...] motor neuron disorders PI: Yemi Bacon MD Retail Support Manager: Karla Albarran [email or web address] documented in this encounter Plan of Treatment Upcoming Encounters Date Type Department Care Team (Late st Contact Info) Description 02/14/2024 9:00 AM BOBBIN CLEANING MACHINE OPERATOR Virtual Visit [facility] [place] [facility] [address] 2nd [place] [phone] Yemi Bacon MD [address] [place] [address] [id number] [place], [place] [address] Natacha Meade RPH [address] [place] [id number] documented as of this encounter Visit Diagnoses Diagnosis ALS (amyotrophic lateral sclerosis) (H)- Primary Amyotrophic lateral sclerosis documented in this encounter Care Teams Boring Machine Operator Relationship Specialty Start Date End Date Nicanor Thomas MD [facility] [address] [place] [address] PCP - General 07/13/05 Natacha Meade RPH [address] [place] [address] [phone] Pharmacist Pharmacist 11/09/23 documented as of this encounter
--- OUTSIDE RECORDS SUMMARY | 2024-01-06 21:57 | XMS_ITS | Encounter Summary ---
Author Organization [facility] Address [address] [place] [address]. [place] [address] Care Team Providers Care Evaporator Supervisor Name Role Phone Nicanor Thomas MD Primary Care Provider Natacha Meade [facility] Unavailable [phone] Natacha Meade [facility] Unavailable [phone] Yemi Bacon MD Unavailable Encounter Details Date Type Department Care Team (Late st Contact Info) Description 11/09/2023 MyC Medical Advice [facility] Multiple Sclerosis Clinic [address] [address] Natacha Meade, [address] [address] Social History Tobacco Use Types [...] st Contact Info) Description 02/14/2024 9:00 AM CUSTOMER SERVICE CONSULTANT Virtual Visit [facility] Neurology [address] [place] [phone] Yemi Bacon MD [address] [place], [place] [id number] [place], [place] [address] Natacha Meade [address] [phone] documented as of this encounter Visit Diagnoses Not on filedocumented in this encounter Care Teams Evaporator Supervisor Relationship Specialty Start Date End Date Nicanor Thomas MD [facility] [address] [address] PCP - General 07/13/05 Natacha Meade [facility] [address] [place] [address] [phone] Pharmacist Pharmacist 11/09/23 Natacha Meade [facility] [address] [place] [address] [phone] Assigned MTM Pharmacist 11/25/23 Yemi Bacon MD [address] [place], [place] [id number] [place], [place] [address] Assigned Neuroscience Provider 11/25/23 documented as of this encounter
--- OUTSIDE RECORDS SUMMARY | 2024-01-06 21:57 | XMS_ITS | Encounter Summary ---
Author Organization [facility] Address [address] [place] [address]. [place] [address] Care Team Providers Care Single Needle Operator Name Role Phone Nicanor Thomas MD Primary Care Provider Natacha Meade [facility] Unavailable [phone] Encounter Details Date Type Department Care Team (Late st Contact Info) Description 11/10/2023 MyC Medical Advice [facility] Neurology Clinic [address] [place] [address] Yemi Bacon MD [address] [place] [address] Social History Tobacco Use Types Packs/Day [...] (Late Contact Info) Description 02/14/2024 9:00 AM RECORDS MANAGEMENT ENGINEER Virtual Visit [facility] Neurology [address] [place] [address] Yemi Bacon MD [address] [place] [address]435 Natacha Meade RPH [address] [place], [place] 365[address] documented as of this encounter Visit Diagnoses Not on filedocumented in this encounter Care Teams Single Needle Operator Relationship Specialty Start Date End Date Nicanor Thomas MD [facility] [address] [place] [address] PCP - General 07/13/05 Natacha Meade RPH [address] [place] [address] [phone] Pharmacist Pharmacist 11/09/23 documented as of this encounter
--- OUTSIDE RECORDS SUMMARY | 2024-01-06 21:58 | XMS_ITS | Encounter Summary ---
Author Organization [facility] Address [address] [place] [address]. [place] [address] Care Team Providers Care Janitorial Services Supervisor Name Role Phone Nicanor Thomas MD Primary Care Provider Encounter Details Date Type Department Care Team (Late Contact Info) Description 11/02/2023 1:00 PM CDT Office Visit [facility] Pulmonary Function Testing [address] [place] [address] Muscle weakness (generalized) Social History Tobacco [...] (Late Contact Info) Description 02/14/2024 9:00 AM ARRESTING GEAR OPERATOR Virtual Visit [facility] Neurology [facility] [address] [place] [address] 2nd [place] [address] Yemi Bacon MD [address] [place] [address] [id number] [place] [address] Natacha Meade, [facility] [address] [place] [address] documented as of this encounter Procedures Procedure Name Priority Date/Time Associated Diagnosis Comments ID MIP/MEP Routine 11/02/2023 1:02 PM CDT Muscle weakness (generalized) ID RESPIRATORY FLOW VOLUME LOOP Routine 11/02/2023 1:02 PM CDT Muscle weakness (generalized) PFT GENERAL LAB TESTING Routine 11/02/2023 12:50 PM CDT Muscle weakness (generalized) documented in this encounter Results * Pulmonary Function Test (11/02/2023 12:50 PM CDT) FVC-Pred 3.14 L [facility] PFT FVC-Pre 3.29 L [facility] PFT FVC-%Pred-Pre 104 % [facility] PFT FEV1-Pre 2.67 L [facility] PFT FEV1-%Pred-Pre 107 % [facility] PFT [id number] 80 % [facility] PFT [id number] 81 % [facility] PFT FEFMax-Pred 6.63 L/sec [facility] PFT FEFMax-Pre 5.47 L/sec [facility] PFT FEFMax-%Pred-Pr e 82 % [facility] PFT [id number] 2.27 L/sec [facility] PFT [id number] 2.74 L/sec [facility] PFT [id number]-%Pred-P re 120 % [facility] PFT ExpTime-Pre 5.71 sec [facility] PFT FIFMax-Pre 2.04 L/sec [facility] PFT MEP-Pre 70 cmH2O [facility] PFT MIP-Pre -50 cmH2O [facility] PFT [id number] 81 % [facility] PFT [id number] 82 % [facility] PFT 11/02/2023 12:5 0 PM CDT Narrative [facility] PFT - 11/03/2023 6:37 PM CDT The FVC, FEV1, FEV1/FVC ratio and QWC60-52% are within normal limits. IMPRESSION: Normal Spirometry. MIP and MEP are reduced. ?This interpretation has been electronically signed: ??RIOS CHRISTIANSON 11/03/2023 ??06:09:20 PM? Yemi Bacon MD PFT ORDERABLES CANDIJose C PFT documented in this encounter Visit Diagnoses Diagnosis Muscle weakness (generalized) documented in this encounter Care Teams Janitorial Services Supervisor Relationship Specialty Start Date End Date Nicanor Thomas MD [facility] [address] [address] PCP - General 07/13/05 documented as of this encounter
--- OUTSIDE RECORDS SUMMARY | 2024-01-06 21:58 | XMS_ITS | Encounter Summary ---
Author Organization [facility] Address [address] [place] [address] Care Team Providers Care Product Finisher Name Role Phone Unavailable Primary Care Provider Unavailabl e Reason for Visit * Reason Comments ALS Education Encounter Details Date Type Department Care Team ([facility] st Contact Info) Description 12/28/2023 1:00 PM CDT Telemedicine Department of Neurology in [place], [place] [address] [place] [phone] Lizandro López M.D. [address] [place] [phone] Beata Morris M.P.H., R.N. [address] [place] [phone] Sclerosis Lateral Amyotrophic (HCC) Social History Tobacco Use Types Packs/Day [...] living situation today? I have a [facility] place to live 10/22/2023 Sex and Gender Information Value Date Recorded Sex Assigned at Female 10/22/2023 5:48 PM CDT Gender Identity Female 10/22/2023 5:48 PM CDT Sexual Orientation Straight 10/22/2023 5: 48 PM CDT documented as of this encounter Patient Instructions * Attachments The following attachments cannot be sent through Care Everywhere. * Amyotrophic Lateral Sclerosis (ALS): Information for Patients and Their Families (Guinean) * Exercising When You Have Neurologic Weakness (Guinean) documented in this encounter Progress Notes * Beata Morris M.P.H., R.N. - 12/28/2023 1:00 PM CDT Education topic: ALS I met with Magaly PyleDoron Ashish and her , Jameson, today for discussion of ALS diagnosis, symptoms,and symptom management per order of Dr. López. Patient identified by name and date. Discussion included the following: ALS causes muscle weakness of the voluntary muscles including the limbs, speech, chewing, swallowing, and breathing. The cause of ALS is unknown, and there is no cure at thistime. It is a progressive disease, getting more severe with progression. It is treated by symptom management. The average life expectancy with ALS is two to five years from onset of symptoms. Up to ten percent of people diagnosed with ALS live ten years or more. Up to five percent live twenty yearsor more. Five to ten percent of ALS is the familial form. Ninety to ninety-five percent of ALS is the sporadic form. A small percentage of people with ALS have cognitive changes. ALS does not affect the senses, bowel or bladder, sexual function, heart, or intestines. It is not considered painful. The drugs Riluzole (Rilutek) and Edaravone (Radicava) are approved for use in ALS. They are thoughtto slow the progression of ALS and add up to two to six months to the life expectancy for riluzole and possibly slow progression by about 30 percent for edaravone. Potential side effects, cost, and need for liver function testing was discussed. Riluzole is taken as a tablet, liquid, or oral film. Edaravone is an IV infusion or oral liquid taken approximately 10/14 days per month. Qalsody (tofersen) was FDA approved in 2022 and is for patients with the SOD1 genetic mutation. ALS clinics manage the symptoms of ALS with a multidisciplinary team approach. It is recommended that these appointments be scheduled every three months. Typically included on the team are a neurologist, nurse, pc installation engineer, physical therapist, occupational therapist, speech pathologist, swallow therapist, social and human services assistant, gun stocker, and willow machine operator or respiratory therapist. Representatives from the ALS Association often attend ALS clinics. The pc installation engineer recommends an exercise program and assesses mobility, activities of daily living, and equipment needs. The pc installation engineer refers treatment and therapy to a physical therapist and occupational therapist. Various aids can be discussed including braces, walkers, wheelchairs, lifts, bathing and eating aids. Handicap accessibility of the home can also be addressed. Pulmonary function is tested at the ALS clinics and, when appropriate, the Sleep Center can evaluate the need for a BiPAP machine. As the disease progresses and the pulmonary function decreases, it is advisable to consider tracheostomy and ventilator or hospice. An advance directive is suggested tostate your wishes should you be unable to tell your healthcare workers what you want done. This form can be obtained from [facility] or from your local clinic. A copy of your completed directive should be provided to your clinic or medical doctor as well as anyone else you wish to have a copy. Youcan also appoint a durable medical power of consumer attorney if you wish. Speech pathologists provide assessment and treatment of communication and swallow needs. They can help you obtain an augmentative communication device and other communication computer technology. Pro-active voice banking was discussed. Swallow is evaluated regularly at your clinic and diet adjustments, food preparation, and safe swallowing techniques are discussed as needed. Formal swallow studies can also be performed. A percutaneous endoscopic gastrostomy (PEG) feeding tube can be used to avoid aspiration, maintain weight, provide hydration, and as a means of taking medications. It is advised to have the PEG tube placed before the pulmonary function is compromised beyond a safe level for receiving anesthesia. We discussed local and national ALS Association chapters and clinics. Telephone numbers and websiteaddresses for the organizations were provided. Mrs. Hinojosa is registered with her local [place] ALSA Chapter. ALS research and clinical trials were discussed and website addresses provided for additional resources: ALS Association National -- www.als.org ALS Therapy Development Broad Top -- www.als.net [facility] [[facility]] Clinical Trials -- www.clinicaltrials.gov National ALS registry -- www.cdc.gov/als The annual influenza vaccine and the pneumonia vaccine are recommended. The pneumonia vaccine requires a booster after five to ten years. It is also recommended that you do not smoke, avoid second hand smoke, eat a healthy diet, drink six to eight glasses of liquid daily, conserve energy, and avoidpeople with colds and flu. Patients should continue with their primary care provider to manage general health needs. Patient is planning to continue followup for ALS symptom management at [facility] in [place], [place]. She is transferring her ALS care from [facility] to [facility] to stay connected with research. I provided my business card/telephone number and encouraged contacting me with any further questions or concerns. You may also reach out through Patient Online Services by sending a message to your neurologist. Patient's questions were answered. Patient verbalized understanding of our discussion today. Consult conducted via real-time audio/video technology by Beata Morris M.P.H., R.N. in [facility] to the patient in Patient's Home documented in this encounter Plan of Treatment Upcoming Encounters Date Type Department Care Team (Latest Contact Info) Description 01/12/2024 7:30 AM CDT Multidisciplinary Visit Department of Neurology in [place], [place] [address] [place] [address] Lizandro López M.D. [address] [place] [address] documented as of this encounter Visit Diagnoses Diagnosis Sclerosis Lateral Amyotrophic (HCC) documented in this encounter
--- OUTSIDE RECORDS SUMMARY | 2024-01-06 21:58 | XMS_ITS | Encounter Summary ---
Author Organization [facility] Address [address] [place] [address] Care Team Providers Care Flue Blower Name Role Phone Unavailable Primary Care Provider Unavailabl e Encounter Details Date Type Department Care Team (Latest Contact Info) Description 12/30/2023 7:23 AM CDT - 12/30/2023 11:59 PM CDT Hospital Encounter Department of Pulmonary Medicine in [place], [place] [address] [place] [address] Lizandro López M.D. 200 [place] [phone] Sclerosis Lateral Amyotrophic (HCC) Discharge Disposition: Home or Self Care Social History Tobacco Use Types Packs/Day Years Used Date Smoking Tobacco: Never Smokeless Tobacco: Never Alcohol Use Standard Drinks/Week Comments Yes 5 (1 standard drink = 0.6 oz pur e alcohol) [facility] Utilities Answer Date Recorded In the past 12 months has [employer], gas, oil, or water [employer] threatened to shut off services in your [...] your living situation today? I have a [facility] place to live 10/22/2023 Sex and Gender Information Value Date Recorded Sex Assigned at Female 10/22/2023 5:48 PM CDT Gender Identity Female 10/22/2023 5:48 PM CDT Sexual Orientation Straight 10/22/2023 5: 48 PM CDT documented as of this encounter Medications at Time of Discharge Medication Sig Dispensed Refills Start Date End Date ALPRAZolam (Xanax) 0.5 mg tablet Take 0.5 mg by mouth as needed for anxiety. ALPRAZolam XR (Xanax XR) 0.5 mg 24 hr tablet Take 0.5 mg by mouth as needed for anxiety. edaravone (Radicava ORS Starter Kit Susp) 105 mg/5 mL suspension Take 5 mL (105 mg total) by mouth daily before morning meal. Take for 14 days followed by a 14-day drug free period. 70 mL 10/27/2023 levothyroxine (SYNTHROID, LEVOTHROID) 50 mcg tablet Take 1 tablet by mouth daily. riluzole (Rilutek) 50 mg tablet Take 1 tablet (50 mg total) by mouth 2 (two) times a day. Indication: ALS 60 tablet 11 10/27/2023 venlafaxine XR (EFFEXOR-XR) 37.5 mg 24 hr capsule Take 1 capsule by mouth every other day. documented as of this encounter Plan of Treatment Upcoming Encounters Date Type Department Care Team (Latest Contact Info) Description 01/12/2024 7:30 AM CDT Multidisciplinary Visit Department of Neurology in [place], [place] [address] [place] [address] Lizandro López M.D. [address] [place] [address] Pending Results Name Type Priority Associated Diagnoses Date /Time PUL Home Overnight Oximetry PFT Routine Sclerosis Lateral Amyotrophic (HCC) 01/01/2024 documented as of this encounter Procedures Procedure Name Priority Date/Time Associated Diagnosis Comments PUL HOME OVERNIGHT OXIMETRY Routine 01/01/2024 Sclerosis Lateral Amyotrophic (HCC) Procedure Note - Mt Koroma M.D. - 01/06/2024This note is in progress. IMPRESSION: Preliminary report. Interpretation to follow. Please contact the [facility] at [phone] withquestions regarding this report. Physician: Mt Koroma M.D. [id number] Mihai Holm M.D. [id number] documented in this encounter Visit Diagnoses Diagnosis Sclerosis Lateral Amyotrophic (HCC) documented in this encounter
--- OUTSIDE RECORDS SUMMARY | 2024-01-06 21:58 | XMS_ITS | Encounter Summary ---
Author Organization [facility] Address [address] [place] [address] Care Team Providers Care Wooden Boat Builder Name Role Phone Unavailable Primary Care Provider Unavailabl e Reason for Visit * Reason Onset Date Comments Communication 11/08/2023 Encounter Details Date Type Department Care Team (Late st Contact Info) Description 11/08/2023 Clinical Communication Department of Neurology in [address] [phone] Lizandro López M.D. [address] [place] [phone] Communication Social History Tobacco Use Types Packs/Day Years Used Date Smoking Tobacco: Never Smokeless Tobacco: Never Alcohol Use Standard Drinks/Week Comments Yes 5 (1 standard drink = 0.6 oz pur e alcohol) [facility] Utilities Answer Date Recorded In the past 12 months has [facility] [employer], gas, oil, or water [employer] threatened to shut off services in your [...] your living situation today? I have a [facility] place to live 10/22/2023 Sex [...] CDT Multidisciplinary Visit Department of Neurology in [place], [place] [address] [place] [address] Lizandro López M.D. [address] [place] [address] documented as of this encounter Visit Diagnoses Not on filedocumented in this encounter
--- OUTSIDE RECORDS SUMMARY | 2024-01-06 21:58 | XMS_ITS | Encounter Summary ---
Author Organization [facility] Address [address] [place] [address] Care Team Providers Care Kettle Cook Name Role Phone Unavailable Primary Care Provider Unavailabl e Encounter Details Date Type Department Care Team (Late st Contact Info) Description 10/27/2023 Orders Only Pharmacy Prior Auth [phone] Margy Teran Social History Tobacco Use Types Packs/Day Years Used Date Smoking Tobacco: Never Smokeless Tobacco: Never Alcohol Use Standard Drinks/Week Comments Yes 5 (1 standard drink = 0.6 oz pur e alcohol) [facility] Utilities Answer Date Recorded In the past 12 months has e [employer], gas, oil, or water [employer] threatened to shut off services in your [...] situation today? I have a [facility] place to live 10/22/2023 Sex and [...] CDT Multidisciplinary Visit Department of Neurology in [place], [place] [address] [place] [address] Lizandro López M.D. [address] [place] [address] documented as of this encounter Visit Diagnoses Not on filedocumented in this encounter
--- OUTSIDE RECORDS SUMMARY | 2024-01-06 21:58 | XMS_ITS | Encounter Summary ---
Author Organization [facility] Address [address] [place] [address]. [place] [address] Care Team Providers Care Division Director Name Role Phone Nicanor Thomas MD Primary Care Provider Encounter Details Date Type Department Care Team (Late st Contact Info) Description 10/28/2023 Orders Only [facility] [address] [place] [address] Irma Batista LPN Muscle weakness [...] st Contact Info) Description 02/14/2024 9:00 AM ON AWAKE COUNSELOR Virtual Visit [facility] Neurology [address] [place] [address] Yemi Bacon MD [address] [place] [address] [id number] [place], [place] [phone] Natacha Meade [address] [place] [address] documented as of this encounter Results * Pulmonary Function Test (11/02/2023 12:50 PM CDT) FVC-Pred 3.14 L BREEZE PFT FVC-Pre 3.29 L BREEZE PFT FVC-%Pred-Pre 104 % [facility]ZE PFT FEV1-Pre 2.67 L BREEZE PFT FEV1-%Pred-Pre 107 % [facility]REEZE PFT [id number] 80 % BREEZE PFT [id number] 81 % BREEZE PFT FEFMax-Pred 6.63 L/sec BREEZE PFT FEFMax-Pre 5.47 L/sec BREEZE PFT FEFMax-%Pred-Pr e 82 % BREEZE PFT [id number] 2.27 L/sec BREEZE PFT [id number] 2.74 L/sec BREEZE PFT OVV3752-%Pred-P re 120 % BREEZE PFT ExpTime-Pre 5.71 sec BREEZE PFT FIFMax-Pre 2.04 L/sec BREEZE PFT MEP-Pre 70 cmH2O BREEZE PFT MIP-Pre -50 cmH2O BREEZE PFT [id number] 81 % BREEZE PFT [id number] 82 % BREEZE PFT 11/02/2023 12:5 0 PM CDT Narrative BREEZE PFT - 11/03/2023 6:37 PM CDT The FVC, FEV1, FEV1/FVC ratio and SGB57-30% are within normal limits. IMPRESSION: Normal Spirometry. MIP and MEP are reduced. ?This interpretation has been electronically signed: ??RIOS CHRISTIANSON 11/03/2023 ??06:09:20 PM? Yemi Bacon MD PFT ORDERABLES BREEZE PFT documented in this encounter Visit Diagnoses Diagnosis Muscle weakness (generalized)- Primary Muscle weakness (generalized) documented in this encounter Care Teams Division Director Relationship Specialty Start Date End Date Nicanor Thomas MD [facility] [address] [place] [address] PCP - General 07/13/05 documented as of this encounter
--- OUTSIDE RECORDS SUMMARY | 2024-01-06 21:58 | XMS_ITS ---
Author Organization [facility] Address [address] [place] [address] Care Team Providers Care Inspector Materials And Processes Name Role Phone Unavailable Unavailable Unavailable Surgery Details Not on file Complications Check Surgery Details section. Procedure Estimated Blood Loss Check Surgery Details section. Procedure Findings Check Surgery Details section. Procedure Specimens Taken Check Surgery Details section.
--- OUTSIDE RECORDS SUMMARY | 2024-01-06 21:58 | XMS_ITS | Encounter Summary ---
Author Organization [facility] Address [address] [place] [address] Care Team Providers Care Slider Assembler Name Role Phone Unavailable Primary Care Provider Unavailabl e Reason for Visit * Reason Onset Date Comments Letter to support Out of Network 11/15/2023 Encounter Details Date Type Department Care Team (Latest Contact Info) Description 11/15/2023 Clinical Communication Department of Neurology in [address] [phone] Lizandro López M.D. 200 [place] [phone] Letter to support Out of Network () Social History Tobacco Use Types Packs/Day Years Used Date Smoking Tobacco: Never Smokeless Tobacco: Never Alcohol Use Standard Drinks/Week Comments Yes 5 (1 standard drink = 0.6 oz pur e alcohol) [facility] Utilities Answer Date Recorded In the past 12 months has [employer], gas, oil, or water [employer] threatened to shut off services in your [...] your living situation today? I have a [facility] place to live 10/22/2023 Sex and Gender Information Value Date Recorded Sex Assigned at Female 10/22/2023 5:48 PM CDT Gender Identity Female 10/22/2023 5:48 PM CDT Sexual Orientation Straight 10/22/2023 5: 48 PM CDT documented as of this encounter Miscellaneous Notes * Telephone Encounter - Kristen Dash - 11/18/2023 2:57 PM CDT [facility] faxed in prior auth approval for out of network exception for Dr. López. Documents scanned into chart. * Telephone Encounter - Santos De La Vega - 11/15/2023 8:54 AM CDT Provider created a letter to support the out of network visits with clinical notes. Faxed to [facility] [place]. Fax- [phone] documented in this encounter Plan of Treatment Upcoming Encounters Date Type Department Care Team (Latest Contact Info) Description 01/12/2024 7:30 AM CDT Multidisciplinary Visit Department of Neurology in [place], [place] [address] [place] [phone] Lizandro López M.D. [address] [place] [phone] documented as of this encounter Visit Diagnoses Not on filedocumented in this encounter
--- OUTSIDE RECORDS SUMMARY | 2024-01-06 21:58 | XMS_ITS | Encounter Summary ---
Author Organization [facility] Address [address] [place] [address]. [place] [address] Care Team Providers Care Research Laboratory Manager Name Role Phone Nicanor Thomas MD Primary Care Provider Halina Natacha [facility] Unavailable [phone] Reason for Referral * Consultation (Routine: Next available opening) - Pending Review Specialty Diagnoses / Procedures Referred By Paolo llanos Referred To Contact Genetics, Clinical Diagnoses ALS (amyotrophic lateral sclerosis) (H) Yemi Bacon MD [address] [facility] [id number] [place] [address] Referral ID Status Reason Start Date Expiration Date V isits Requested Visits Authorized [id number] Pending Review 11/04/2023 11/03/2024 1 1 Question Answer Reason for Referral: Neuromuscular Scheduling Instructions: [facility] will call you to coordinate your care as prescribed by your provider. If you don't hear from a title insurance sales representative within 2 business days, please call [phone]. Additional Information: ALS panel - Lisset Quiros [...] plan with any benefit or coverage questions. [facility] will call you to coordinate your care as prescribed by your provider. If you don't hear from a title insurance sales representative within 2 business days, please call [phone]. * Med Therapy Management (Routine: Next available opening) - Closed Specialty Diagnoses / Procedures Referred By Paolo llanos Referred To Contact Pharmacist Diagnoses ALS (amyotrophic lateral sclerosis) (H) Yemi Bacon MD [address] [facility] [id number] [place] [address] Referral ID Status Reason Start Date Expiration Date Visits Re quested Visits Authorized [id number] Closed 11/04/2023 11/03/2024 1 1 Question Answer Type of MTM: Specialty Specialty: Neurology Course of Action: Other Reason for Referral: radicava and Ermaedextimo - Natacha Meade please Comments [facility] Medication Therapy Management department will contact [...] prescription and non-prescription medications (such as vitamins, tpks-utw-erfhrhs medications, and herbals) or a detailed medication [...] (H) Lizandro López MD [address] [place] [address] Referral ID Status Reason Start Date Expiration Date V isits Requested Visits Authorized [id number] Pending Review 10/27/2023 10/26/2024 1 1 Encounter Details Date Type Department Care Team ([facility] st Contact Info) Description 11/02/2023 1:30 PM CDT Office Visit [facility] Neurology Clinic [address] 3rd [place] [phone] Yemi Bacon MD [address] [place] [address] [id number] [place] [address] ALS (amyotrophic lateral sclerosis) (H) (Primary Dx); [...] clinic. I agree with your seeing an roll edge stitcher hand. One more blood test; you can have it done at any [facility] clinic. Please call Keli @ [phone] for questions or concerns during regular business hours. For a more efficient way to communicate, use commercetoolst and address the message to your physician. Remember, MyChart is only read during business hours. Do not leave urgent messages on voicemail or MyChart. If situation is urgent, contact the Neurology Clinic @ [phone] and ask to speak to a Triage [...] clinic. I agree with your seeing an roll edge stitcher hand. One more blood test; you can have it done at any [facility] clinic. [MuSK Ab; MG is not explained [...] st Contact Info) Description 02/14/2024 9:00 AM AIR HAMMER OPERATOR Virtual Visit [facility] Neurology [facility] [address] [facility] 2nd [place] [phone] Yemi Bacon MD [address] [place] [address] [id number] [place] [address] Natacha Meade, [address] [address] Scheduled Referrals Name Type Priority Associated Diagnoses Orde r Schedule Med Therapy Management Referral Referral Routine: Next available opening ALS (amyotrophic lateral sclerosis) (H) Ordered: 11/04/2023 Adult Genetics & Metabolism Sign Painter Helper Referral Referral Routine: Next available opening ALS (amyotrophic lateral sclerosis) (H) Expected: 11/04/2023 (Approximate), Expires: 11/03/2024 documented as of this encounter Results * Muscle-Specific Kinase Antibody Screen with Reflex to Titer (11/10/2023 3:59 PM CDT) Muscle-Specific Kinase Antibody Screen <1:10 <1:10 11/14/2023 10:59 PM CDT [facility] Comment: MuSK Antibody, IgG is not detected. [...] developed and its performance characteristics determined by [facility]. It has not been cleared or approved by the U.S. Food and Drug Administration. This test was performed in a CLIA-certified laboratory and is intended for clinical purposes. Performed By: [facility] [address] [place] [address] Practice Nurse: Fidel Cornell MD, PhD CLIA Number: [id number] Blood BLOOD SPECIMEN / Unknown Venipuncture / Unknown 11/10/2023 3:59 PM CDT 11/10/2023 3:59 PM CDT Yemi Bacon MD LAB - BLOOD ORDERABL ES [facility] [address] [place] [address], [facility] [phone] documented in this encounter Visit Diagnoses Diagnosis ALS (amyotrophic lateral sclerosis) (H)- Primary Amyotrophic lateral sclerosis Acquired amyotrophic lateral sclerosis (H) documented in this encounter Care Teams Research Laboratory Manager Relationship Specialty Start Date End Date Nicanor Thomas MD [facility] [address] [place] [address] PCP - General 07/13/05 Natacha Meade [facility] [address] [place] [address] Pharmacist Pharmacist 11/09/23 documented as of this encounter
--- OUTSIDE RECORDS SUMMARY | 2024-01-06 21:58 | XMS_ITS | Encounter Summary ---
Author Organization [facility] Address [address] [place] [address]. [place] [address] Care Team Providers Care Gui Developer Name Role Phone Nicanor Thomas MD Primary Care Provider Reason for Visit * Reason Onset Date Comments Referral 10/28/2023 ALS Multidiscipl inary Clinic Encounter Details Date Type Department Care Team (Late st Contact Info) Description 10/28/2023 [facility] Neurology Clinic [address] [place] [address] None Referral (ALS Multidisciplinary Clinic/) [...] Hailey Multani - 10/28/2023 10:44 AM CDT [facility] Call Center Phone Message May a detailed message be left on voicemail: yes Reason for Call: Appointment Intake Referring Provider Name: Lizandro López affiliated with [facility]. Diagnosis and/or Symptoms: ALS Multidisciplinary Clinic Basket Hand Braider sending TE per protocols, please review and assist with scheduling Action Taken: Message routed to: [facility] neurology Travel Screening: Not Applicable Date of Service: documented in this encounter Plan of Treatment Upcoming Encounters Date Type Department Care Team (Late st Contact Info) Description 02/14/2024 9:00 AM SPRAY DRY OPERATOR Virtual Visit [facility] Neurology [place] [address] [facility] 2nd [place] [address] Yemi Bacon MD [address] [place] [address] [id number] [place] [address] Natacha Meade, [facility] [address] [place], [place] [phone] documented as of this encounter Visit Diagnoses Not on filedocumented in this encounter Care Teams Gui Developer Relationship Specialty Start Date End Date Nicanor Thomas MD [facility] [address] [place] [address] PCP - General 07/13/05 documented as of this encounter
--- OUTSIDE RECORDS SUMMARY | 2024-01-06 21:58 | XMS_ITS | Encounter Summary ---
Author Organization [facility] Address [address] [place] [address] Care Team Providers Care Phytopathologist Name Role Phone Unavailable Primary Care Provider Unavailabl e Reason for Referral * Medication Prior Authorization - Closed Specialty Diagnoses / Procedures Referred By Paolo llanos Referred To Contact Lizandro López M.D. [address] [place] [address] Referral ID Status Reason Start Date Expiration Date Visits Re quested Visits Authorized [id number] Closed 1 1 Reason for Visit * Reason Onset Date Comments Rx Prior Authorization 10/26/2023 Radicava Encounter Details Date Type Department Care Team (Latest Contact Info) Description 10/26/2023 Clinical Communication Department of Neurology in [place], [place] [address] [place] [phone] Lizandro López M.D. 200 [place] [phone] Rx Prior Authorization (Radicava ) Social History Tobacco Use Types Packs/Day Years Used Date Smoking Tobacco: Never Smokeless Tobacco: Never Alcohol Use Standard Drinks/Week Comments Yes 5 (1 standard drink = 0.6 oz pur e alcohol) [facility] Utilities Answer Date Recorded In [...] your living situation today? I have a [facility] place to live 10/22/2023 Sex [...] CDT Multidisciplinary Visit Department of Neurology in [place], [place] [address] [place] [phone] Lizandro López M.D. [address] [place] [phone] documented as of this encounter Visit Diagnoses Not on filedocumented in this encounter
--- OUTSIDE RECORDS SUMMARY | 2024-01-06 21:58 | XMS_ITS | Referral Summary ---
Author Organization [facility] Address [address] [place] [id number] Care Team Providers Care Data Management Consultant Name Role Phone Unavailable Primary Care Provider Unavailabl e Source Comments Patient records contain information from all sites at [facility]. For routine questions regarding patient records, call [phone] during business hours, M-F 8:00 AM - 5:00 PM Central Time. Record requests for emergency care only can be directed to [phone] at any time.[facility] Encounters Date Type Department Care Team Description 12/30/2023 7:23 AM CDT - 12/30/2023 11:59 PM CDT Hospital Encounter Department of Pulmonary Medicine in [place], [place] [address] [place] [address] Tyson Carreon M.D. Sclerosis Lateral Amyotrophic (HCC) Discharge Disposition: Home or Self Care 12/28/2023 1:00 PM CDT Telemedicine Department of Neurology in [place], [place] [address] [place] [phone] Tyson Carreon M.D. Teigen, Katherine E M.P.H., R.N. Sclerosis Lateral Amyotrophic (HCC) 12/19/2023 Orders Only Department of Neurology in [address] [phone] Tsyon Carreon M.D. Sclerosis Lateral Amyotrophic (HCC) (Primary Dx) 11/15/2023 Clinical Communication Department of Neurology in [address] [place] [phone] Tyson Carreon M.D. Letter to support Out of Network ([employer] Cross [place]) 11/08/2023 Clinical Communication Department of Neurology in [address] [phone] Tyson Carreon M.D. Communication 11/07/2023 Clinical Communication Department of Cardiovascular Diseases in [address] [phone] Tyson Carreon M.D. Med Question 10/28/2023 Orders Only Pharmacy Prior Auth RO [phone] Claudio Chel Gonzalez 10/27/2023 Orders Only Pharmacy Prior Auth RO [phone] Margy Teran 10/26/2023 Clinical Communication Department of Neurology in [place], [place] [address] [place] [address] Tyson Carreon M.D. Rx Prior Authorization ([employer] ) 10/25/2023 3:30 PM CDT Office Visit Department of Neurology in [address] [phone] Tyson Carreon M.D. Sclerosis Lateral Amyotrophic (HCC) (Primary Dx) Discharge Disposition: Home or Self Care 10/19/2023 7:11 AM CDT - 10/19/2023 11:59 PM CDT Hospital Encounter Department of Neurology in [place], [place] [address] [place] [phone] Tyson Carreon M.D. Other Motor Neuron Disease (HCC) Discharge Disposition: Home or Self Care 10/18/2023 Clinical Communication Department of Neurology in [address] [phone] Tyson Carreon M.D. Follow-up Orders (MRI in [place] ) 10/17/2023 2:11 PM CDT - 10/17/2023 11:59 PM CDT Hospital Encounter Department of Laboratory Medicine in [address] [phone] Tyson Carreon M.D. Other Motor Neuron Disease (HCC) Discharge Disposition: Home or Self Care 10/17/2023 1:00 PM CDT Office Visit Department of Neurology in [address] [phone] Tyson Carreon M.D. Sclerosis Lateral Amyotrophic (HCC) (Primary Dx); Other Motor Neuron Disease (HCC); Anterior Horn Cell Disease (HCC) Discharge Disposition: Home or Self Care 10/12/2023 Clinical Communication Department of Neurology in [address] [phone] Tyson Carreon M.D. Order Request (F/u clinical [...] Indication: ALS 60 tablet 11 10/27/2023 Active Active Problems No known active problems Social History Tobacco Use Types Packs/Day Years Used Date Smoking Tobacco: Never Smokeless Tobacco: Never Tobacco Cessation:Counseling Given: Not Answered Alcohol Use Standard Drinks/Week Comments Yes 5 (1 standard drink = 0.6 oz pur e alcohol) [facility] Utilities Answer Date Recorded In the past 12 months has th e electric, [employer], oil, or water [employer] threatened to shut off services in your [...] your living situation today? I have a [facility] place to live 10/22/2023 Sex and [...] CDT Multidisciplinary Visit Department of Neurology in [place], [place] [address] [place] [address] Tyson Carreon M.D. [address] [place] [phone] Procedures Procedure Name Priority Date/Time Associated Diagnosis Comments PUL HOME OVERNIGHT OXIMETRY Routine 01/01/2024 Sclerosis Lateral Amyotrophic (HCC) Procedure Note - Mt Koroma M.D. - 01/06/2024This note is in progress. IMPRESSION: Preliminary report. Interpretation to follow. Please contact the [facility] at [phone] withquestions regarding this report. Physician: Mt Koroma M.D. [id number] Mihai Holm M.D. [id number] OUTSIDE MR NEURO Routine 10/19/2023 3:35 PM CDT OUTSIDE MR NEURO Routine 10/19/2023 3:30 PM CDT EMG Routine 10/19/2023 7:11 AM CDT Other Motor Neuron Disease (HCC) LYME AB MODIFIED 2-TIER W/REFLEX, S Routine 10/17/2023 11:00 PM CDT Other Motor Neuron Disease (HCC) NEUROFILAMENT LIGHT CHAIN, P Routine 10/17/2023 2:49 PM CDT Other Motor Neuron Disease (HCC) GANGLIOSIDE AB PANEL, S Routine 10/17/2023 2:46 PM CDT Other Motor Neuron Disease (HCC) MYELOPATHY, AUTOIMM/PARANEO, SERUM Routine 10/17/2023 2:46 PM CDT Other Motor Neuron Disease (HCC) HC ORGANIC ACID 1 QUANT 2 Routine 10/17/2023 2:43 PM CDT HC T4 FREE Routine 10/17/2023 2:43 PM CDT [...] ? Final Report Study Number: 1 [employer] Media Services Director: Kylie Alcocer [phone] or [phone] Referred by: TYSON CARREON ([phone] or [phone]) Referred for: Query bulbar onset ALS Referral [...] and cervical myotomes. Alberto Alcocer (127 or [phone])/ACV NERVE CONDUCTIONS ??Record Rep ?? Normal ??Normal [...] Electromyography Final Report Study Number: 1 [employer] Media Services Director: Kylie Alcocer [phone] or [phone] Referred by: TYSON CARREON (127 or [phone]) Referred for: Query bulbar onset ALS Referral [...] and cervical myotomes. Alberto Alcocer (127 or [phone])/ACV NERVE CONDUCTIONS Record Rep Normal Normal Distal [...] - B LOOD ORDERABLES Performing Organization Address City/[facility] Co de Phone Number [facility] [address] [place] [address] ECLR [facility] [address] * (ABNORMAL) Neurofilament Light Chain (NfL) (10/17/2023 2:49 PM CDT) Neurofilament Light Chain, P 70.7(H) <=25.4 pg/mL 10/19/2023 3:29 PM CDT [facility] Comment: ----ADDITIONAL INFORMATION---- The testing method is a digital immunoassay for the quantitative determination of NfL in plasma manufactured by [employer] and performed on the [employer]-X analyzer. Values obtained with different methods may be different and cannot be used interchangeably. This test was developed and its performance characteristics determined by [facility] in a manner consistent with CLIA requirements. This test has not been cleared or approved by the U.S. Food and Drug Administration. Blood (Blood, Venous) 10/17/2023 2:49 PM CDT 10/18/2023 8:38 AM CDT Tyson Carreon M.D. LAB BLOOD NON ADD-ON [facility] [address] [place] [address] [facility] [address] [place] [address] * Myelopathy, Autoimmune/Paraneoplastic Evaluation (10/17/2023 2:46 PM [...] developed and its performance characteristics determined by [facility] in a manner consistent with CLIA requirements. This test has not been cleared or approved by the U.S. Food and Drug Administration. AGNA-1, S Negative Negative 10/24/2023 5:13 PM CDT DTL Comment: ----ADDITIONAL INFORMATION---- This test was developed and its performance characteristics determined by [facility] in a manner consistent with CLIA requirements. This test has not been cleared or approved by the U.S. Food and Drug Administration. NAEEM-1, S Negative Negative 10/24/2023 5:13 PM CDT DTL Comment: ----ADDITIONAL INFORMATION---- This test was developed and its performance characteristics determined by [facility] in a manner consistent with CLIA requirements. This test has not been cleared or approved by the U.S. Food and Drug Administration. NAEEM-2, S Negative Negative 10/24/2023 5:13 PM CDT DTL Comment: ----ADDITIONAL INFORMATION---- This test was developed and its performance characteristics determined by [facility] in a manner consistent with CLIA requirements. This test has not been cleared or approved by the U.S. Food and Drug Administration. NAEEM-3, S Negative Negative 10/24/2023 5:13 PM CDT DTL Comment: ----ADDITIONAL INFORMATION---- This test was developed and its performance characteristics determined by [facility] in a manner consistent with CLIA requirements. This test has not been cleared or approved by the U.S. Food and Drug Administration. AP3B2 IFA, S Negative Negative 10/24/2023 5:13 PM CDT DTL Comment: ----ADDITIONAL INFORMATION---- This test was developed and its performance characteristics determined by [facility] in a manner consistent with CLIA requirements. This test has not been cleared or approved by the U.S. Food and Drug Administration. CRMP-5-IgG Western Blot, S Negative Negative 10/24/2023 5:13 PM CDT DTL Comment: ----ADDITIONAL INFORMATION---- This test was developed and its performance characteristics determined by [facility] in a manner consistent with CLIA requirements. This test has not been cleared or approved by the U.S. Food and Drug Administration. DPPX Ab CBA, S Negative Negative 10/24/2023 5:13 PM CDT DTL Comment: ----ADDITIONAL INFORMATION---- This test was developed and its performance characteristics determined by [facility] in a manner consistent with CLIA requirements. This test has not been cleared or approved by the U.S. Food and Drug Administration. JOSE-B-R Ab CBA, S Negative Negative 2023 5:13 PM CDT DTL Comment: ----ADDITIONAL INFORMATION---- This test was developed and its performance characteristics determined by [facility] in a manner consistent with CLIA requirements. This test has not been cleared or approved by the U.S. Food and Drug Administration. GAD65 Ab Assay, S 0.00 <=0.02 nmol/L 10/24/2023 5:13 PM CDT DTL Comment: ----ADDITIONAL INFORMATION---- This test was developed and its performance characteristics determined by [facility] in a manner consistent with CLIA requirements. This test has not been cleared or approved by the U.S. Food and Drug Administration. GFAP IFA, S Negative Negative 10/24/2023 5:13 PM CDT DTL Comment: ----ADDITIONAL INFORMATION---- This test was developed and its performance characteristics determined by [facility] in a manner consistent with CLIA requirements. This test has not been cleared or approved by the U.S. Food and Drug Administration. mGluR1 Ab IFA, S Negative Negative 10/24/19 24 5:13 PM CDT DTL Comment: ----ADDITIONAL INFORMATION---- This test was developed and its performance characteristics determined by [facility] in a manner consistent with CLIA requirements. This test has not been cleared or approved by the U.S. Food and Drug Administration. MOG FACS, S Negative Negative 10/24/2023 5:13 PM CDT DTL Comment: ----ADDITIONAL INFORMATION---- This test was developed and its performance characteristics determined by [facility] in a manner consistent with CLIA requirements. This test has not been cleared or approved by the U.S. Food and Drug Administration. NIF IFA, S Negative Negative 10/24/2023 5:13 PM CDT DTL Comment: ----ADDITIONAL INFORMATION---- This test was developed and its performance characteristics determined by [facility] in a manner consistent with CLIA requirements. This test has not been cleared or approved by the U.S. Food and Drug Administration. NMO/AQP4 FACS, S Negative Negative 10/24/19 24 5:13 PM CDT DTL Comment: ----ADDITIONAL INFORMATION---- This test was developed and its performance characteristics determined by [facility] in a manner consistent with CLIA requirements. This test has not been cleared or approved by the U.S. Food and Drug Administration. Neurochondrin IFA, S Negative Negative 10/24/2023 5:13 PM CDT DTL Comment: ----ADDITIONAL INFORMATION---- This test was developed and its performance characteristics determined by [facility] in a manner consistent with CLIA requirements. This test has not been cleared or approved by the U.S. Food and Drug Administration. CLIPPER AND TURNER-1, S Negative Negative 10/24/2023 5:13 PM CDT DTL Comment: ----ADDITIONAL INFORMATION---- This test was developed and its performance characteristics determined by [facility] in a manner consistent with CLIA requirements. This test has not been cleared or approved by the U.S. Food and Drug Administration. CLIPPER AND TURNER-2, S Negative Negative 10/24/2023 5:13 PM CDT DTL Comment: ----ADDITIONAL INFORMATION---- This test was developed and its performance characteristics determined by [facility] in a manner consistent with CLIA requirements. This test has not been cleared or approved by the U.S. Food and Drug Administration. Septin-7 IFA, S Negative Negative 4 5:13 PM CDT DTL Comment: ----ADDITIONAL INFORMATION---- This test was developed and its performance characteristics determined by [facility] in a manner consistent with CLIA requirements. This test has not been cleared or approved by the U.S. Food and Drug Administration. TRIM46 Ab IFA, S Negative Negative 10/24/19 24 5:13 PM CDT DTL Comment: ----ADDITIONAL INFORMATION---- This test was developed and its performance characteristics determined by [facility] in a manner consistent with CLIA requirements. This test has not been cleared or approved by the U.S. Food and Drug Administration. Blood (Blood, Venous) 10/17/2023 2:46 PM CDT 10/18/2023 10:15 AM CDT Tyson Carreon M.D. LAB BLOOD ADD-ON [facility] [address] [place] [address], [facility] DT 200 [facility] [address] [place] [address] * Ganglioside Antibody Panel (10/17/2023 2:46 PM CDT) IgG Monos. GM1 Negative Negative 10/25/2023 2:11 PM CDT DTL Comment: ----ADDITIONAL INFORMATION---- This test was developed and its performance characteristics determined by [facility] in a manner consistent with CLIA requirements. This test has not been cleared or approved by the U.S. Food and Drug Administration. IgM Monos. GM1 Negative Negative 10/25/2023 2:11 PM CDT DTL Comment: ----ADDITIONAL INFORMATION---- This test was developed and its performance characteristics determined by [facility] in a manner consistent with CLIA requirements. This test has not been cleared or approved by the U.S. Food and Drug Administration. IgG Asialo. GM1 Negative Negative 4 2:11 PM CDT DTL Comment: ----ADDITIONAL INFORMATION---- This test was developed and its performance characteristics determined by [facility] in a manner consistent with CLIA requirements. This test has not been cleared or approved by the U.S. Food and Drug Administration. IgM Asialo. GM1 Negative Negative 4 2:11 PM CDT DTL Comment: ----ADDITIONAL INFORMATION---- This test was developed and its performance characteristics determined by [facility] in a manner consistent with CLIA requirements. This test has not been cleared or approved by the U.S. Food and Drug Administration. IgG Disialo. GD1b Negative Negative 024 2:11 PM CDT DTL Comment: ----ADDITIONAL INFORMATION---- This test was developed and its performance characteristics determined by [facility] in a manner consistent with CLIA requirements. This test has not been cleared or approved by the U.S. Food and Drug Administration. IgM Disialo. GD1b Negative Negative 024 2:11 PM CDT DTL Comment: ----ADDITIONAL INFORMATION---- This test was developed and its performance characteristics determined by [facility] in a manner consistent with CLIA requirements. This test has not been cleared or approved by the U.S. Food and Drug Administration. Blood (Blood, Venous) 10/17/2023 2:46 PM CDT 10/18/2023 10:15 AM CDT Tyson Carreon M.D. LAB BLOOD NON ADD-ON [facility] [address] [place] [address], [facility] DT [address] [place] [address] * Quantitative M-protein Study (10/17/2023 2:43 PM CDT) Immunoglobulin A (IgA), S 87 61 - 356 mg/dL 10/18/2023 8:16 AM CDT [facility] Immunoglobulin M (IgM), S 187 37 - 286 mg/dL 10/18/2023 8:15 AM CDT [facility] Immunoglobulin G (IgG), S 1220 767 - 1590 mg/dL 10/18/2023 8:15 AM CDT [facility] Therapeutic Antibody Administered? Unspecified 10/18/2023 7:09 AM CDT [facility] Flag, M-protein Isotype Negative Negative 10/19/2023 8:50 AM CDT [facility] QMPTS Interpretation No monoclonal protein detected. 10/19/2023 8:50 AM CDT [facility] Comment: ----ADDITIONAL INFORMATION---- The submitted sample was assayed by five separate immunopurifications for IgG, IgA, IgM, kappa and lambda. ??The result reflects the findings of either no monoclonal protein detected or those monoclonal immunoglobulins that were detected. This test was developed and its performance characteristics determined by [facility] in a manner consistent with CLIA requirements. This test has not been cleared or approved by the U.S. Food and Drug Administration. Blood (Blood, Venous) 10/17/2023 2:43 PM CDT 10/18/2023 6:28 AM CDT Narrative [facility] - 10/19/2023 8:50 AM CDT Specimen Information: Specimen ID: [id number] Specimen Type: Blood Specimen Collection Start Date: 10/17/2023 11:00 PM Specimen Received Date: 10/18/2023 ??6:28 AM Specimen ID: [id number] Specimen Type: Blood Specimen Collection Start Date: 10/17/2023 ??2:43 PM Specimen Received Date: 10/18/2023 ??7:09 AM Tyson Carreon M.D. LAB BLOOD ADD-ON [facility] [address] [place] [address] [facility] [address] [place] [address] [place] [address] [facility] [place] [address] * T4 (Thyroxine), Free, Serum (10/17/2023 2:43 PM CDT) [facility] Signature T4 (Thyroxine), Free, S 0.9 0.9 - 1.7 ng/dL 10/17/2023 3:57 PM CDT RDWG Blood 10/17/2023 2:43 PM CDT 10/17/2023 2:49 PM CDT Tyson Carreon M.D. LAB BLOOD ADD-ON Performing Organization Address City/[facility]/ZIP Co de Phone Number [facility] [address] [place] [address], [facility] RDWG [facility] [place] [address] [place] [address] * Methylmalonic Acid (MMA), Quantitative, Serum (10/17/2023 2:43 PM CDT) Methylmalonic Acid, QN, S 0.22 <=0.40 nmol/mL 10/20/2023 8:15 AM CDT DTL Comment: No cellular B-12 deficiency. ----ADDITIONAL INFORMATION---- This test was developed and its performance characteristics determined by [facility] in a manner consistent with CLIA requirements. This test has not been cleared or approved by the U.S. Food and Drug Administration. Blood 10/17/2023 2:43 PM CDT 10/18/2023 1:29 PM CDT Tyson Carreon M.D. LAB BLOOD NON ADD-ON Performing Organization Address City/[facility]/ZIP Co de Phone Number [facility] [address] [place] [address], [facility] DTL 200 [facility] [address] [place] [address] * Antinuclear Ab [place], S (10/17/2023 2:43 PM CDT) Antinuclear Ab Screen by IFA, S Negative Negative 10/19/2023 8:45 AM CDT ECLR Comment:No titer performed, COURT screen is negative. Blood (Blood, Venous) 10/17/2023 2:43 PM CDT 10/17/2023 9:02 PM CDT Tyson Carreon M.D. LAB BLOOD NON ADD-ON [facility] [address] [place] [address], [facility] ECLR [address] [address] * (ABNORMAL) Thyroid Function [place] (10/17/2023 2:43 PM CDT) TSH, Sensitive 10.3(H) 0.3 - 4.2 mIU/L 10/17/2023 3:35 PM CDT RDWG Blood (Blood, Venous) 10/17/2023 2:43 PM CDT 10/17/2023 2:49 PM CDT Tyson Carreon M.D. LAB BLOOD ADD-ON Performing Organization Address City/[facility]/ZIP Co de Phone Number [facility] [address] [place] [address], [facility] RDWG [facility] [place] [address] [place] [address] * Pernicious Anemia [place] (10/17/2023 2:43 PM CDT) Pathologist [facility] Vitamin B12 Assay, S 248 180 - 914 ng/L 10/18/2023 11:55 AM CDT [facility] Comment:B-12 <400; MMA test was performed. Blood (Blood, Venous) 10/17/2023 2:43 PM CDT 10/18/2023 8:35 AM CDT Narrative [facility] - 10/18/2023 11:55 AM CDT Specimen Information: Specimen ID: [id number] Specimen Type: Blood Specimen Collection Start Date: 10/17/2023 ??2:43 PM Specimen Received Date: 10/18/2023 ??8:35 AM Specimen ID: [id number] Specimen Type: Blood Specimen Collection Start Date: 10/17/2023 ??2:43 PM Specimen Received Date: 10/18/2023 ??8:52 AM Tyson Carreon M.D. LAB BLOOD NON ADD-ON [facility] [address] [place] [address] [facility] - [facility] [address] [place] [address] * Hexosaminidase A and Total Hexosaminidase, Leukocytes (10/17/2023 2:43 PM CDT) [facility] Hexosaminidase Total, WBC 23.9 16.4 - 36.2 [...] years), consider ruling out the B1 variant ([facility] test MUGS). Please contact the [employer] healthcare consultant or genetic counselor timber poisoner ( ) if you have any questions. 10/21/2023 2:17 PM CDT DTL Comment: ----ADDITIONAL INFORMATION---- Heat Inactivation, Fluorometric This test was developed and its performance characteristics determined by [facility] in a manner consistent with CLIA requirements. This test has not been cleared or approved by the U.S. Food and Drug Administration. Blood (Blood, Peripheral Draw) 10/17/2023 2:43 PM CDT 10/18/2023 7:40 AM CDT Tyson Carreon M.D. LAB GENETIC TESTING [facility] [address] [place] [address], [facility] DTL [address] [facility] [address] [place] [address] * Cryopreservation for Molecular Genetic Studies (10/17/2023 [...] is not a DNA banking service. If regional intermodal truck driver, guaranteed specimen storage is required, DNA banking [...] M.D. LAB GENETIC TESTING Performing Organization Address City/[facility]/ZIP Co de Phone Number [facility] [address] [place] [address], [facility] DTL [address] [facility] [address] [place] [address] * (ABNORMAL) Thyroperoxidase (TPO) Antibodies (10/17/2023 2:43 PM CDT) Thyroperoxidase Ab, S 125.9(H) <34.0 IU/mL 10/18/2023 3:45 AM CDT ECLR Blood 10/17/2023 2:43 PM CDT 10/17/2023 9:04 PM CDT Tyson Carreon M.D. LAB BLOOD ADD-ON Performing Organization Address [facility] Co de Phone Number [facility] [address] [place], [place] [id number], [facility] ECLR [facility] [address] * Copper (10/17/2023 2:43 PM CDT) Copper, S 115 77 - 206 mcg/dL 10/18/2023 10:42 AM CDT [facility] Comment: ----ADDITIONAL INFORMATION---- This test was developed and its performance characteristics determined by [facility] in a manner consistent with CLIA requirements. This test has not been cleared or approved by the U.S. Food and Drug Administration. Blood (Blood, Venous) 10/17/2023 2:43 PM CDT 10/17/2023 9:48 PM CDT Tyson Carreon M.D. LAB BLOOD NON ADD-ON Performing Organization Address City/[facility]/ZIP Co de Phone Number [facility] [address] [place] [address] [facility] [address] [place] [address] * Phosphorus Inorganic (10/17/2023 2:43 PM CDT) Phosphorus (Inorganic), P 3.0 2.5 - 4.5 mg/dL 10/17/2023 3:17 PM CDT [facility] Blood (Blood, Venous) 10/17/2023 2:43 PM CDT 10/17/2023 2:49 PM CDT Tyson Carreon M.D. LAB BLOOD ADD-ON [facility] [address] [address], [facility] in [address] [place] [address] * (ABNORMAL) Parathyroid Hormone (PTH) (10/17/2023 2:43 PM CDT) Parathyroid Hormone (PTH), S 74(H) 15 - 65 pg/mL 10/17/2023 3:27 PM CDT [facility] Comment: Biotin has been identified by the senior front end web developer as a potential interfering substance. Higher concentrations of biotin may be found in multivitamins, hair/nail supplements, and workout supplements. If the result does not match clinical observations, repeat testing after patient refrains from the use of supplements for at least 12 hours. Blood (Blood, Venous) 10/17/2023 2:43 PM CDT 10/17/2023 2:49 PM CDT Tyson Carreon M.D. LAB BLOOD ADD-ON Performing Organization Address City/[facility]/ZIP Co de Phone Number [facility] [address] [place] [phone], [facility] [place] [facility] in [address] [phone] * Creatinine with Estimated GFR (10/17/2023 2:43 PM CDT) Creatinine 0.78 0.59 - 1.04 mg/dL 10/17/2023 3:17 PM CDT [facility] Estimated GFR (eGFR) 87 >=60 mL/min/BSA 10/17/2023 3:17 PM CDT [facility] Comment: Estimated GFR calculated using the 2020 CKD_EPI creatinine equation. Blood (Blood, Venous) 10/17/2023 2:43 PM CDT 10/17/2023 2:49 PM CDT Tyson Carreon M.D. LAB BLOOD ADD-ON [facility] [address] [place] [address], [facility] in [place] [address] [place] [address] * CK (Creatine Kinase) (10/17/2023 2:43 PM CDT) Creatine Kinase, P 163 26 - 192 U/L 10/17/2023 3:17 PM CDT [facility] Blood (Blood, Venous) 10/17/2023 2:43 PM CDT 10/17/2023 2:49 PM CDT Tyson Carreon M.D. LAB BLOOD ADD-ON Performing Organization Address City/[facility]/ZIP Co de Phone Number [facility] [address] [place] [address], [facility] [place] [facility] [place] [address] * Calcium, Total (10/17/2023 2:43 PM CDT) Calcium, Total, P 9.3 8.6 - 10.0 mg/dL 10/17/2023 3:17 PM CDT [facility] Blood (Blood, Venous) 10/17/2023 2:43 PM CDT 10/17/2023 2:49 PM CDT Tyson Carreon M.D. LAB BLOOD ADD-ON [facility] [address] [place] [address], [facility] in [place] [address] [place] [phone] * Vitamin E Level (10/17/2023 2:39 PM CDT) A-Tocopherol, Vitamin E 13.6 5.5 - 17.0 mg/L 10/19/2023 8:25 AM T [facility] Comment: ----ADDITIONAL INFORMATION---- This test was developed and its performance characteristics determined by [facility] in a manner consistent with CLIA requirements. This test has not been cleared or approved by the U.S. Food and Drug Administration. Blood (Blood, Venous) 10/17/2023 2:39 PM CDT 10/18/2023 11:23 AM CDT Tyson Carreon M.D. LAB BLOOD NON ADD-ON [facility] [address] [place] [address] [facility] [address] [place] [phone] from Last 3 Months
--- OUTSIDE RECORDS SUMMARY | 2024-01-06 21:58 | XMS_ITS | Encounter Summary ---
Author Organization [facility] Address [address] [place] [address] Care Team Providers Care Networking Technician Name Role Phone Unavailable Primary Care Provider Unavailabl e Encounter Details Date Type Department Care Team (Late st Contact Info) Description 10/28/2023 Orders Only Pharmacy Prior Auth [facility] [phone] Chel Synder Social History Tobacco Use Types Packs/Day Years Used Date Smoking Tobacco: Never Smokeless Tobacco: Never Alcohol Use Standard Drinks/Week Comments Yes 5 (1 standard drink = 0.6 oz pur e alcohol) [facility] Utilities Answer Date Recorded In [...] CDT Multidisciplinary Visit Department of Neurology in [place], [place] [address] [place] [phone] Lizandro López M.D. [address] [place] [phone] documented as of this encounter Visit Diagnoses Not on filedocumented in this encounter
--- OUTSIDE RECORDS SUMMARY | 2024-01-06 21:58 | XMS_ITS | Encounter Summary ---
Author Organization [facility] Address [address] [place] [address] Care Team Providers Care Preanalytics Team Lead Name Role Phone Unavailable Primary Care Provider Unavailabl e Reason for Visit * Reason Onset Date Comments Med Question 11/07/2023 Encounter Details Date Type Department Care Team (Latest Contact Info) Description 11/07/2023 Clinical Communication Department of Cardiovascular Diseases in [address] [phone] Lizandro López M.D. [address] [place] [phone] Med Question Social History Tobacco Use Types Packs/Day Years Used Date Smoking Tobacco: Never Smokeless Tobacco: Never Alcohol Use Standard Drinks/Week Comments Yes 5 (1 standard drink = 0.6 oz pur e alcohol) [facility] Utilities Answer Date Recorded In the past 12 months has [employer], gas, oil, or water [employer] threatened to shut off services in your [...] your living situation today? I have a [facility] place to live 10/22/2023 Sex and Gender Information Value Date Recorded Sex Assigned at Female 10/22/2023 5:48 PM CDT Gender Identity Female 10/22/2023 5:48 PM CDT Sexual Orientation Straight 10/22/2023 5: 48 PM CDT documented as of this encounter Plan of Treatment Upcoming Encounters Date Type Department Care Team (Latest Contact Info) Description 01/12/2024 7:30 AM CDT Multidisciplinary Visit Department of Neurology in [place], [place] [address] [place] [address] Lizandro López M.D. [address] [place] [address] documented as of this encounter Visit Diagnoses Not on filedocumented in this encounter
--- OUTSIDE RECORDS SUMMARY | 2024-01-06 21:58 | XMS_ITS | Encounter Summary ---
Author Organization [facility] Address [address] [place] [address] Care Team Providers Care Audit Officer Name Role Phone Unavailable Primary Care Provider Unavailabl e Reason for Referral * Outpatient (Routine) - Authorized Specialty Diagnoses / Procedures Referred By Paolo t Referred To Contact Diagnoses Sclerosis Lateral Amyotrophic (HCC) Lizandro López M.D. [address] [place] [phone] [facility] Referral ID Status Reason Start Date Expiration Date V isits Requested Visits Authorized [id number] Authorized 12/19/2023 06/19/2025 1 1 Encounter Details Date Type Department Care Team (Late st Contact Info) Description 12/19/2023 Orders Only Department of Neurology in [address] [phone] Lizandro López M.D. [address] [place] [phone] Sclerosis Lateral Amyotrophic (HCC) (Primary Dx) Social History Tobacco Use Types Packs/Day Years Used Date Smoking Tobacco: Never Smokeless Tobacco: Never Alcohol Use Standard Drinks/Week Comments Yes 5 (1 standard drink = 0.6 oz pur e alcohol) [facility] Utilities Answer Date Recorded In the past 12 months has [employer], gas, oil, or water [employer] threatened to shut off services in your [...] CDT Multidisciplinary Visit Department of Neurology in [place], [place] [address] [place] [address] Lizandro López M.D. 200 [place] [address] Scheduled Referrals Name Type Priority Associated Diagnoses Order Schedule Neurology ALS multidisciplinary clinic Outpatient Referral Routine Sclerosis Lateral Amyotrophic (HCC) Expected: 12/19/2023, Expires: 03/19/2025 documented as of this encounter Visit Diagnoses Diagnosis Sclerosis Lateral Amyotrophic (HCC)- Primary documented in this encounter
--- OUTSIDE RECORDS SUMMARY | 2024-01-06 21:58 | XMS_ITS | Clinical Summary ---
Author Organization [facility] Address [address] [place] [address] Care Team Providers Care Manager Front Name Role Phone Unavailable Primary Care Provider Unavailabl e Source Comments Patient records contain information from all sites at [facility]. For routine questions regarding patient records, call [phone] during business hours, M-F 8:00 AM - 5:00 PM Central Time. Record requests for emergency care only can be directed to [phone] at any time.[facility] Allergies Active Allergy Reactions Criticality Noted Date [...] Hospital Encounter Department of Pulmonary Medicine in [place], [place] [address] [place] [address] Tyson Carreon M.D. Sclerosis Lateral Amyotrophic (HCC) Discharge Disposition: Home or Self Care 12/28/2023 1:00 PM CDT Telemedicine Department of Neurology in [place], [place] [address] [place] [address] Tyson Carreon M.D. Teigen, Katherine E, M.P.H., R.N. Sclerosis Lateral Amyotrophic (HCC) 12/19/2023 Orders Only Department of Neurology in [address] [phone] Tyson Carreon M.D. Sclerosis Lateral Amyotrophic (HCC) (Primary Dx) 11/15/2023 Clinical Communication Department of Neurology in [address] [phone] Tyson Carreon M.D. Letter to support Out of Network ([facility]) 11/08/2023 Clinical Communication Department of Neurology in [address] [phone] Tyson Carreon M.D. Communication 11/07/2023 Clinical Communication Department of Cardiovascular Diseases in [address] [phone] Tyson Carreon M.D. Med Question 10/28/2023 Orders Only Pharmacy Prior Auth RO [phone] Chel Snyder 10/27/2023 Orders Only Pharmacy Prior Auth RO [phone] Margy Teran 10/26/2023 Clinical Communication Department of Neurology in [place], [place] [address] [place] [address] Tyson Carreon M.D. Rx Prior Authorization ([facility] ) 10/25/2023 3:30 PM CDT Office Visit Department of Neurology in [address] [phone] Tyson Carreon M.D. Sclerosis Lateral Amyotrophic (HCC) (Primary Dx) Discharge Disposition: Home or Self Care 10/19/2023 7:11 AM CDT - 10/19/2023 11:59 PM CDT Hospital Encounter Department of Neurology in [address] [address] Tyson Carreon M.D. Other Motor Neuron Disease (HCC) Discharge Disposition: Home or Self Care 10/18/2023 Clinical Communication Department of Neurology in [address] [phone] Tyson Carreon M.D. Follow-up Orders (MRI in [place] ) 10/17/2023 2:11 PM CDT - 10/17/2023 11:59 PM CDT Hospital Encounter Department of Laboratory Medicine in [address] [phone] Tyson Carreon M.D. Other Motor Neuron Disease (HCC) Discharge Disposition: Home or Self Care 10/17/2023 1:00 PM CDT Office Visit Department of Neurology in [address] [phone] Tyson Carreon M.D. Sclerosis Lateral Amyotrophic (HCC) (Primary Dx); Other Motor Neuron Disease (HCC); Anterior Horn Cell Disease (HCC) Discharge Disposition: Home or Self Care 10/12/2023 Clinical Communication Department of Neurology in [address] [phone] Tyson Carreon M.D. Order Request (F/u clinical visit ) from Last 3 Months Social History Tobacco Use Types Packs/Day Years Used Date Smoking Tobacco: Never Smokeless Tobacco: Never Tobacco Cessation:Counseling Given: Not Answered Alcohol Use Standard Drinks/Week Comments Yes 5 (1 standard drink = 0.6 oz pur e alcohol) [facility] Utilities Answer Date Recorded In the past 12 months has th e [employer], oil, or water [employer] threatened to shut off services in your [...] your living situation today? [facility] 10/22/2023 Sex and [...] CDT Multidisciplinary Visit Department of Neurology in [place], [place] [address] [place] [address] Tyson Carreon M.D. [address] [place] [phone] Health Maintenance Due Date Last Done Comments CT Colonography 1964 Cologuard 1964 Colonoscopy 1965 Colorectal Cancer Screening 1964 FIT 1964 Fasting Glucose for Diabetes Screening 1964 HIV Screening 1964 Hepatitis C Screening 1964 Lipid (Cholesterol) Screening 1964 Mammogram 1964 Hepatitis B Vaccines (1 of 3 - 19+ 3-dose series) 1983 Depression Screening (Annual PHQ-2) 04/04/2023 COVID-19 Vaccine ( - season) 2023 05/14/2022, 02/08/2021, 04/15/2020, Additional history exists Influenza Vaccine (#1) 2024 2, 01/22/2020, 01/11/2019, Additional history exists Thyroid Stimulating Hormone (TSH) test for thyroid function 10/16/2024 10/17/2023 DTaP,Tdap,and Td Vaccines (2 - Td or Tdap) 12/21/2027 12/20/2017 Zoster Vaccines Completed 08/01/2023, 01/06/2023 Pneumococcal vaccine [...] contact the [facility] at [phone] withquestions regarding this report. Physician: [place] Kor[place] M.D. [id number] Mihai Holm M.D. [id number] OUTSIDE MR NEURO Routine 10/19/2023 3:35 PM [...] Not In System IMG MRI PROCEDURE S HARSH NA * EMG (10/19/2023 7:11 AM CDT) 10/19/2023 7:30 AM CDT Narrative EMG - 10/19/2023 3:21 PM CDT Table formatting from the original result was not included. 19-Oct-2023 ? Electromyography ? Final Report Study Number: 1 EMG Dryer Operator: Kylie Alcocer 127 or [phone] Referred by: TYSON CARREON (127 or [phone]) Referred for: Query bulbar onset ALS Referral [...] and cervical myotomes. Alberto Alcocer (127 or [phone])/ACV NERVE CONDUCTIONS ??Record Rep ?? Normal ??Normal [...] Electromyography Final Report Study Number: 1 EMG Dryer Operator: Kylie Alcocer 127 or [phone] Referred by: TYSON CARREON (127 or [phone]) Referred for: Query bulbar onset ALS Referral [...] and cervical myotomes. Alberto Alcocer (127 or [phone])/ACV NERVE CONDUCTIONS Record Rep Normal Normal Distal [...] - B LOOD ORDERABLES Performing Organization Address City/[facility]/ZIP Co de Phone Number [facility] [address] [place] [address], [facility] ECLR [facility] [place] [address] [place] [address] * (ABNORMAL) Neurofilament Light Chain (NfL) (10/17/2023 2:49 PM CDT) Neurofilament Light Chain, P 70.7(H) <=25.4 pg/mL 10/19/2023 3:29 PM CDT [facility] Comment: ----ADDITIONAL INFORMATION---- The testing method is a digital immunoassay for the quantitative determination of NfL in plasma manufactured by [employer] and performed on the Infolinks-X analyzer. Values obtained with different methods may be different and cannot be used interchangeably. This test was developed and its performance characteristics determined by [facility] in a manner consistent with CLIA requirements. This test has not been cleared or approved by the U.S. Food and Drug Administration. Blood (Blood, Venous) 10/17/2023 2:49 PM CDT 10/18/2023 8:38 AM CDT Tyson Carreon M.D. LAB BLOOD NON ADD-ON Performing Organization Address City/[facility]/ZIP Co de Phone Number [facility] [address] [place] [address] [facility] [address] [place] [address] * Myelopathy, Autoimmune/Paraneoplastic Evaluation (10/17/2023 2:46 PM [...] and its performance characteristics determined by [facility] in a manner consistent with CLIA requirements. This test has not been cleared or approved by the U.S. Food and Drug Administration. AGNA-1, S Negative Negative 10/24/2023 5:13 PM CDT [facility] Comment: ----ADDITIONAL INFORMATION---- This test was developed and its performance characteristics determined by [facility] in a manner consistent with CLIA requirements. This test has not been cleared or approved by the U.S. Food and Drug Administration. NAEEM-1, S Negative Negative 10/24/2023 5:13 PM CDT [facility] Comment: ----ADDITIONAL INFORMATION---- This test was developed and its performance characteristics determined by [facility] in a manner consistent with CLIA requirements. This test has not been cleared or approved by the U.S. Food and Drug Administration. NAEEM-2, S Negative Negative 10/24/2023 5:13 PM CDT [facility]TL Comment: ----ADDITIONAL INFORMATION---- This test was developed and its performance characteristics determined by [facility] in a manner consistent with CLIA requirements. This test has not been cleared or approved by the U.S. Food and Drug Administration. NAEEM-3, S Negative Negative 10/24/2023 5:13 PM CDT [facility]TL Comment: ----ADDITIONAL INFORMATION---- This test was developed and its performance characteristics determined by [facility] in a manner consistent with CLIA requirements. This test has not been cleared or approved by the U.S. Food and Drug Administration. AP3B2 IFA, S Negative Negative 10/24/2023 5:13 PM CDT DTL Comment: ----ADDITIONAL INFORMATION---- This test was developed and its performance characteristics determined by [facility] in a manner consistent with CLIA requirements. This test has not been cleared or approved by the U.S. Food and Drug Administration. CRMP-5-IgG Western Blot, S Negative Negative 10/24/2023 5:13 PM CDT DTL Comment: ----ADDITIONAL INFORMATION---- This test was developed and its performance characteristics determined by [facility] in a manner consistent with CLIA requirements. This test has not been cleared or approved by the U.S. Food and Drug Administration. DPPX Ab CBA, S Negative Negative 10/24/2023 5:13 PM CDT DTL Comment: ----ADDITIONAL INFORMATION---- This test was developed and its performance characteristics determined by [facility] in a manner consistent with CLIA requirements. This test has not been cleared or approved by the U.S. Food and Drug Administration. JOSE-B-R Ab CBA, S Negative Negative 2023 5:13 PM CDT DTL Comment: ----ADDITIONAL INFORMATION---- This test was developed and its performance characteristics determined by [facility] in a manner consistent with CLIA requirements. This test has not been cleared or approved by the U.S. Food and Drug Administration. GAD65 Ab Assay, S 0.00 <=0.02 nmol/L 10/24/2023 5:13 PM CDT DTL Comment: ----ADDITIONAL INFORMATION---- This test was developed and its performance characteristics determined by [facility] in a manner consistent with CLIA requirements. This test has not been cleared or approved by the U.S. Food and Drug Administration. GFAP IFA, S Negative Negative 10/24/2023 5:13 PM CDT DTL Comment: ----ADDITIONAL INFORMATION---- This test was developed and its performance characteristics determined by [facility] in a manner consistent with CLIA requirements. This test has not been cleared or approved by the U.S. Food and Drug Administration. mGluR1 Ab IFA, S Negative Negative 10/24/19 24 5:13 PM CDT DTL Comment: ----ADDITIONAL INFORMATION---- This test was developed and its performance characteristics determined by [facility] in a manner consistent with CLIA requirements. This test has not been cleared or approved by the U.S. Food and Drug Administration. MOG FACS, S Negative Negative 10/24/2023 5:13 PM CDT DTL Comment: ----ADDITIONAL INFORMATION---- This test was developed and its performance characteristics determined by [facility] in a manner consistent with CLIA requirements. This test has not been cleared or approved by the U.S. Food and Drug Administration. NIF IFA, S Negative Negative 10/24/2023 5:13 PM CDT DTL Comment: ----ADDITIONAL INFORMATION---- This test was developed and its performance characteristics determined by [facility] in a manner consistent with CLIA requirements. This test has not been cleared or approved by the U.S. Food and Drug Administration. NMO/AQP4 FACS, S Negative Negative 10/24/19 24 5:13 PM CDT DTL Comment: ----ADDITIONAL INFORMATION---- This test was developed and its performance characteristics determined by [facility] in a manner consistent with CLIA requirements. This test has not been cleared or approved by the U.S. Food and Drug Administration. Neurochondrin IFA, S Negative Negative 10/24/2023 5:13 PM CDT DTL Comment: ----ADDITIONAL INFORMATION---- This test was developed and its performance characteristics determined by [facility] in a manner consistent with CLIA requirements. This test has not been cleared or approved by the U.S. Food and Drug Administration. BENZENE WASHER OPERATOR-1, S Negative Negative 10/24/2023 5:13 PM CDT DTL Comment: ----ADDITIONAL INFORMATION---- This test was developed and its performance characteristics determined by [facility] in a manner consistent with CLIA requirements. This test has not been cleared or approved by the U.S. Food and Drug Administration. BENZENE WASHER OPERATOR-2, S Negative Negative 10/24/2023 5:13 PM CDT DTL Comment: ----ADDITIONAL INFORMATION---- This test was developed and its performance characteristics determined by [facility] in a manner consistent with CLIA requirements. This test has not been cleared or approved by the U.S. Food and Drug Administration. Septin-7 IFA, S Negative Negative 4 5:13 PM CDT DTL Comment: ----ADDITIONAL INFORMATION---- This test was developed and its performance characteristics determined by [facility] in a manner consistent with CLIA requirements. This test has not been cleared or approved by the U.S. Food and Drug Administration. TRIM46 Ab IFA, S Negative Negative 10/24/19 24 5:13 PM CDT DTL Comment: ----ADDITIONAL INFORMATION---- This test was developed and its performance characteristics determined by [facility] in a manner consistent with CLIA requirements. This test has not been cleared or approved by the U.S. Food and Drug Administration. Blood (Blood, Venous) 10/17/2023 2:46 PM CDT 10/18/2023 10:15 AM CDT Tyson Carreon M.D. LAB BLOOD ADD-ON [facility] [address] [place] [address], [facility] DTL [address] [facility] [address] [place] [address] * Ganglioside Antibody Panel (10/17/2023 2:46 PM CDT) Pathologist [facility] IgG Monos. GM1 Negative Negative 10/25/2023 2:11 PM CDT DTL Comment: ----ADDITIONAL INFORMATION---- This test was developed and its performance characteristics determined by [facility] in a manner consistent with CLIA requirements. This test has not been cleared or approved by the U.S. Food and Drug Administration. IgM Monos. GM1 Negative Negative 10/25/2023 2:11 PM CDT DTL Comment: ----ADDITIONAL INFORMATION---- This test was developed and its performance characteristics determined by [facility] in a manner consistent with CLIA requirements. This test has not been cleared or approved by the U.S. Food and Drug Administration. IgG Asialo. GM1 Negative Negative 4 2:11 PM CDT DTL Comment: ----ADDITIONAL INFORMATION---- This test was developed and its performance characteristics determined by [facility] in a manner consistent with CLIA requirements. This test has not been cleared or approved by the U.S. Food and Drug Administration. IgM Asialo. GM1 Negative Negative 4 2:11 PM CDT DTL Comment: ----ADDITIONAL INFORMATION---- This test was developed and its performance characteristics determined by [facility] in a manner consistent with CLIA requirements. This test has not been cleared or approved by the U.S. Food and Drug Administration. IgG Disialo. GD1b Negative Negative 024 2:11 PM CDT DTL Comment: ----ADDITIONAL INFORMATION---- This test was developed and its performance characteristics determined by [facility] in a manner consistent with CLIA requirements. This test has not been cleared or approved by the U.S. Food and Drug Administration. IgM Disialo. GD1b Negative Negative 024 2:11 PM CDT DTL Comment: ----ADDITIONAL INFORMATION---- This test was developed and its performance characteristics determined by [facility] in a manner consistent with CLIA requirements. This test has not been cleared or approved by the U.S. Food and Drug Administration. Blood (Blood, Venous) 10/17/2023 2:46 PM CDT 10/18/2023 10:15 AM CDT Tyson Carreon M.D. LAB BLOOD NON ADD-ON [facility] [address] [place] [address], [facility] DT [address] [facility] [address] [place] [address] * Quantitative M-protein Study (10/17/2023 2:43 PM CDT) Pathologist [facility] Immunoglobulin A (IgA), S 87 61 - [...] and its performance characteristics determined by [facility] in a manner consistent with CLIA requirements. This test has not been cleared or approved by the U.S. Food and Drug Administration. Blood (Blood, Venous) 10/17/2023 2:43 PM CDT 10/18/2023 6:28 AM CDT Narrative [facility] - 10/19/2023 8:50 AM CDT Specimen Information: Specimen ID: [id number] Specimen Type: Blood Specimen Collection Start Date: 10/17/2023 11:00 PM Specimen Received Date: 10/18/2023 ??6:28 AM Specimen ID: [id number] Specimen Type: Blood Specimen Collection Start Date: 10/17/2023 ??2:43 PM Specimen Received Date: 10/18/2023 ??7:09 AM Tyson Carreon M.D. LAB BLOOD ADD-ON Performing Organization Address City/[facility]/ZIP Co de Phone Number [facility] [address] [place] [address] [facility] [address] [place] [address] [place] [address] * T4 (Thyroxine), Free, Serum (10/17/2023 2:43 PM CDT) T4 (Thyroxine), Free, S 0.9 0.9 - 1.7 ng/dL 10/17/2023 3:57 PM CDT [facility] Blood 10/17/2023 2:43 PM CDT 10/17/2023 2:49 PM CDT Tyson Carreon M.D. LAB BLOOD ADD-ON [facility] [address] [facility] [place] [address], [facility] [employer] [facility] in [place] [address] [place] [address] [place] [address] * Methylmalonic Acid (MMA), Quantitative, Serum (10/17/2023 2:43 PM CDT) Methylmalonic Acid, QN, S 0.22 <=0.40 nmol/mL 10/20/2023 8:15 AM CDT DTL Comment: No cellular B-12 deficiency. ----ADDITIONAL INFORMATION---- This test was developed and its performance characteristics determined by [facility] in a manner consistent with CLIA requirements. This test has not been cleared or approved by the U.S. Food and Drug Administration. Blood 10/17/2023 2:43 PM CDT 10/18/2023 1:29 PM CDT Tyson Carreon M.D. LAB BLOOD NON ADD-ON Performing Organization Address City/[facility]/ZIP Co de Phone Number [facility] [address] [place] [address], [facility] DTL [address] [facility] [address] [place] [address] * Antinuclear Ab [place], S (10/17/2023 2:43 PM CDT) Antinuclear Ab Screen by IFA, S Negative Negative 10/19/2023 8:45 AM CDT ECLR Comment:No titer performed, COURT screen is negative. Blood (Blood, Venous) 10/17/2023 2:43 PM CDT 10/17/2023 9:02 PM CDT Tyson Carreon M.D. LAB BLOOD NON ADD-ON Performing Organization Address City/[facility] Co de Phone Number [facility] [address] [place] [address], [facility] ECLR [address] [place] [phone] * (ABNORMAL) Thyroid Function [place] (10/17/2023 2:43 PM CDT) TSH, Sensitive 10.3(H) 0.3 - 4.2 mIU/L 10/17/2023 3:35 PM CDT [facility] Blood (Blood, Venous) 10/17/2023 2:43 PM CDT 10/17/2023 2:49 PM CDT Tyson Carreon M.D. LAB BLOOD ADD-ON [facility] [address] [place] [address], [place] R[facility] [place] [address] [place] [address] * Pernicious Anemia [place] (10/17/2023 2:43 PM CDT) Vitamin B12 Assay, S 248 180 - 914 ng/L 10/18/2023 11:55 AM CDT [facility] Comment:B-12 <400; MMA test was performed. Blood (Blood, Venous) 10/17/2023 2:43 PM CDT 10/18/2023 8:35 AM CDT Narrative [facility] - 10/18/2023 11:55 AM CDT Specimen Information: Specimen ID: [id number] Specimen Type: Blood Specimen Collection Start Date: 10/17/2023 ??2:43 PM Specimen Received Date: 10/18/2023 ??8:35 AM Specimen ID: [id number] Specimen Type: Blood Specimen Collection Start Date: 10/17/2023 ??2:43 PM Specimen Received Date: 10/18/2023 ??8:52 AM Tyson Carreon M.D. LAB BLOOD NON ADD-ON [facility] [address] [place] [address] [place] [id number] [place] [address] * Hexosaminidase A and Total Hexosaminidase, Leukocytes (10/17/2023 2:43 PM CDT) Hexosaminidase Total, WBC 23.9 16.4 - 36.2 [...] test MUGS). Please contact the [employer] storage consultant or genetic counselor patient relations representative ( ) if you have any questions. 10/21/2023 2:17 PM CDT DTL Comment: ----ADDITIONAL INFORMATION---- Heat Inactivation, Fluorometric This test was developed and its performance characteristics determined by [facility] in a manner consistent with CLIA requirements. This test has not been cleared or approved by the U.S. Food and Drug Administration. Blood (Blood, Peripheral Draw) 10/17/2023 2:43 PM CDT 10/18/2023 7:40 AM CDT Tyson Carreon M.D. LAB GENETIC TESTING [facility] [address] [place] [address], [facility] DT [address] [facility] [address] [place] [address] * Cryopreservation for Molecular Genetic Studies (10/17/2023 [...] is not a DNA banking service. If shelter, guaranteed specimen storage is required, DNA banking [...] M.D. LAB GENETIC TESTING Performing Organization Address [facility]/ZIP Co de Phone Number [facility] [address] [place] [address], [facility] DTL 200 [facility] [address] [place] [address] * (ABNORMAL) Thyroperoxidase (TPO) Antibodies (10/17/2023 2:43 PM CDT) Pathologist [facility] Thyroperoxidase Ab, S 125.9(H) <34.0 IU/mL 10/18/2023 3:45 AM CDT E[facility] Blood 10/17/2023 2:43 PM CDT 10/17/2023 9:04 PM CDT Tyson Carreon M.D. LAB BLOOD ADD-ON [facility] [address] [place] [address], [facility] ECLR [facility] in [address] [address] * Copper (10/17/2023 2:43 PM CDT) Copper, S 115 77 - 206 mcg/dL 10/18/2023 10:42 AM CDT [facility] Comment: ----ADDITIONAL INFORMATION---- This test was developed and its performance characteristics determined by [facility] in a manner consistent with CLIA requirements. This test has not been cleared or approved by the U.S. Food and Drug Administration. Blood (Blood, Venous) 10/17/2023 2:43 PM CDT 10/17/2023 9:48 PM CDT Tyson Carreon M.D. LAB BLOOD NON ADD-ON Performing Organization Address City/[facility]/ZIP Co de Phone Number [facility] [address] [place] [address] [facility] [address] [place] [address] * Phosphorus Inorganic (10/17/2023 2:43 PM CDT) Phosphorus (Inorganic), P 3.0 2.5 - 4.5 mg/dL 10/17/2023 3:17 PM CDT RDW Blood (Blood, Venous) 10/17/2023 2:43 PM CDT 10/17/2023 2:49 PM CDT Tyson Carreon M.D. LAB BLOOD ADD-ON Performing Organization Address [facility] Co de Phone Number [facility] [address] [place] [phone], [facility] [place] [address] [place] [phone] * (ABNORMAL) Parathyroid Hormone (PTH) (10/17/2023 2:43 PM CDT) Parathyroid Hormone (PTH), S 74(H) 15 - 65 pg/mL 10/17/2023 3:27 PM CDT [facility] Comment: Biotin has been identified by the academic counselor as a potential interfering substance. Higher concentrations of biotin may be found in multivitamins, hair/nail supplements, and workout supplements. If the result does not match clinical observations, repeat testing after patient refrains from the use of supplements for at least 12 hours. Blood (Blood, Venous) 10/17/2023 2:43 PM CDT 10/17/2023 2:49 PM CDT Tyson Carreon M.D. LAB BLOOD ADD-ON Performing Organization Address City/[facility]/ZIP Co de Phone Number [facility] [address] [address], [facility] RDWG [facility] in [place] [address] * Creatinine with Estimated GFR (10/17/2023 2:43 PM CDT) Creatinine 0.78 0.59 - 1.04 mg/dL 10/17/2023 3:17 PM CDT [facility] Estimated GFR (eGFR) 87 >=60 mL/min/BSA 10/17/2023 3:17 PM CDT [facility] Comment: Estimated GFR calculated using the 2020 CKD_EPI creatinine equation. Blood (Blood, Venous) 10/17/2023 2:43 PM CDT 10/17/2023 2:49 PM CDT Tyson Carreon M.D. LAB BLOOD ADD-ON Performing Organization Address [facility] Co de Phone Number [facility] [address] [place] [address], [facility] [place] [address] * CK (Creatine Kinase) (10/17/2023 2:43 PM CDT) Creatine Kinase, P 163 26 - 192 U/L 10/17/2023 3:17 PM CDT [facility] Blood (Blood, Venous) 10/17/2023 2:43 PM CDT 10/17/2023 2:49 PM CDT Tyson Carreon M.D. LAB BLOOD ADD-ON Performing Organization Address City/[facility]/ZIP Co de Phone Number [facility] [address] [place] [address], [facility] in [place] [address] [place] [address] * Calcium, Total (10/17/2023 2:43 PM CDT) Calcium, Total, P 9.3 8.6 - 10.0 mg/dL 10/17/2023 3:17 PM CDT [facility] Blood (Blood, Venous) 10/17/2023 2:43 PM CDT 10/17/2023 2:49 PM CDT Tyson Carreon M.D. LAB BLOOD ADD-ON Performing Organization Address [facility] Co de Phone Number [facility] [address] [place] [address] in [address] [address] * Vitamin E Level (10/17/2023 2:39 PM CDT) A-Tocopherol, Vitamin E 13.6 5.5 - 17.0 mg/L 10/19/2023 8:25 AM CDT [facility] Comment: ----ADDITIONAL INFORMATION---- This test was developed and its performance characteristics determined by [facility] in a manner consistent with CLIA requirements. This test has not been cleared or approved by the U.S. Food and Drug Administration. Blood (Blood, Venous) 10/17/2023 2:39 PM CDT 10/18/2023 11:23 AM CDT Tyson Carreon M.D. LAB BLOOD NON ADD-ON [facility] [place] [address] [place] [address] [facility] [address] [place] [address] from Last 3 [place] [address]
--- OUTSIDE RECORDS SUMMARY | 2024-01-06 21:58 | XMS_ITS | Encounter Summary ---
Author Organization [facility] Address [address] [place] [address]. [place] [address] Care Team Providers Care Final Inspection Supervisor Name Role Phone Nicanor Thomas MD Primary Care Provider Reason for Referral * Consultation (Routine) - Pending Review Specialty Diagnoses / Procedures Referred By Paolo llanos Referred To Contact Neurology Diagnoses Acquired amyotrophic lateral sclerosis (H) Lizandro López MD [address] [place] [address] Referral ID Status Reason Start Date Expiration Date V isits Requested Visits Authorized [id number] Pending Review 10/27/2023 10/26/2024 1 1 Question Answer Reason for Referral: Other Scheduling Instructions: [facility] will call you to coordinate your care as prescribed by your provider. If you don't hear from a inside sales representative within 2 business days, please call . My Clinical Question Is: ALS Multidisciplinary Clinic Comments Referral Transcribed by external fax Provider: Lizandro López affiliated with [facility]. VA: No If yes was is the VA Authorization Number: Phone number: [phone] Fax number: [phone] Please be aware that coverage of these services is subject to the terms and limitations of your health insurance plan. Call member services at your health plan with any benefit or coverage questions. [facility] will call you to coordinate your care as prescribed by your provider. If you don't hear from a inside sales representative within 2 business days, please [...] st Contact Info) Description 02/14/2024 9:00 AM REGISTERED DIETICIAN Virtual Visit [facility] Neurology [facility] [address] [facility] [address] [place] [phone] Yemi Bacon MD [address] [place] [address] [id number] [place], [place] [phone] Natacha [place], [address] [address] Scheduled Referrals Name Type Priority Associated Diagnoses Orde r Schedule Adult Neurology Boiler Tester Referral Referral Routine Acquired amyotrophic lateral sclerosis (H) Expected: 10/27/2023 (Approximate), Expires: 10/26/2024 documented as of this encounter Visit Diagnoses Diagnosis Acquired amyotrophic lateral sclerosis (H)- Primary documented in this encounter Care Teams Final Inspection Supervisor Relationship Specialty Start Date End Date Nicanor Thomas MD [facility] [address] [place] [address] PCP - General 07/13/05 documented as of this encounter
--- OUTSIDE RECORDS SUMMARY | 2024-01-06 21:59 | XMS_ITS | Encounter Summary ---
Author Organization [facility] Address [address] [place] [address] Care Team Providers Care Patroller Name Role Phone Unavailable Primary Care Provider Unavailabl e Encounter Details Date Type Department Care Team (Latest Contact Info) Description 10/17/2023 2:11 PM CDT - 10/17/2023 11:59 PM CDT Hospital Encounter Department of Laboratory Medicine in [address] [phone] Lizandro López M.D. 200 [place] [phone] Other Motor Neuron Disease (HCC) Discharge Disposition: [...] CDT Multidisciplinary Visit Department of Neurology in [place], [place] [address] [place] [address] Lizandro López M.D. [address] [place] [address] documented as of this encounter Procedures Procedure [...] CDT Other Motor Neuron Disease (HCC) HC T4 FREE Routine 10/17/2023 2:43 PM CDT HC ORGANIC ACID 1 QUANT 2 Routine [...] - B LOOD ORDERABLES Performing Organization Address [facility] Co de Phone Number [facility] [address] [place] [address], [facility] ECLR [facility] [place] [address] * (ABNORMAL) Neurofilament Light Chain (NfL) (10/17/2023 2:49 PM CDT) Neurofilament Light Chain, P 70.7(H) <=25.4 pg/mL 10/19/2023 3:29 PM CDT [facility] Comment: ----ADDITIONAL INFORMATION---- The testing method is a digital immunoassay for the quantitative determination of NfL in plasma manufactured by [employer] and performed on the Oligomerix HD-X analyzer. Values obtained with different methods [...] LAB BLOOD NON ADD-ON Performing Organization Address City/[facility]/ZIP Co de Phone Number [facility] [place] [address] [place] [address] [facility] [address] [place] [address] * Ganglioside Antibody Panel (10/17/2023 2:46 PM [...] Lizandro López M.D. LAB BLOOD NON ADD-ON [facility] [address] [place] [address], [facility] DT [address] [place] [address] * Myelopathy, Autoimmune/Paraneoplastic Evaluation (10/17/2023 2:46 PM [...] by the U.S. Food and Drug Administration. SIGN PAINTER-1, S Negative Negative 10/24/2023 5:13 PM CDT [facility] Comment: ----ADDITIONAL INFORMATION---- This test was developed and its performance characteristics determined by [facility] in a manner consistent with CLIA requirements. This test has not been cleared or approved by the U.S. Food and Drug Administration. SIGN PAINTER-2, S Negative Negative 10/24/2023 5:13 PM CDT [...] M.D. LAB BLOOD ADD-ON Performing Organization Address [facility] de Phone Number [facility] [address] DTL [address] [address] * Methylmalonic Acid (MMA), Quantitative, Serum (10/17/2023 [...] LAB BLOOD NON ADD-ON Performing Organization Address [facility]/ZIP Co de Phone Number [facility] [address] [place] [address], [facility] DTL [address] [address] * T4 (Thyroxine), Free, Serum (10/17/2023 2:43 PM CDT) T4 (Thyroxine), Free, S 0.9 0.9 - 1.7 ng/dL 10/17/2023 3:57 PM CDT [facility] Blood 10/17/2023 2:43 PM CDT 10/17/2023 2:49 PM CDT Lizandro López M.D. LAB BLOOD ADD-ON Performing Organization Address [facility] Co de Phone Number [facility] [address] [place] [address], [facility] RDWG [facility] in [address] [address] * (ABNORMAL) Thyroperoxidase (TPO) Antibodies (10/17/2023 2:43 PM CDT) [facility] Thyroperoxidase Ab, S 125.9(H) <34.0 IU/mL 10/18/2023 3:45 AM CDT [facility] Blood 10/17/2023 2:43 PM CDT 10/17/2023 9:04 PM CDT Lizandro López M.D. LAB BLOOD ADD-ON Performing Organization Address [facility] de Phone Number [facility] [address] [place] [address], [facility] ECLR [facility] [place] [address] * Cryopreservation for Molecular Genetic Studies (10/17/2023 2:43 PM CDT) Pathologist [facility] Comment A DNA specimen has been stored for future genomic studies. This specimen has been stored at the request of the ordering physician for anticipated future testing. In some instances, a portion of the specimen may remain available (by consent) for use by the individual and/or family. This is not a DNA banking service. If termite treater, guaranteed specimen storage is required, DNA banking [...] M.D. LAB GENETIC TESTING Performing Organization Address City/[facility]/ZIP Co de Phone Number [facility] [address] [place] [address], [facility] DTL [address] [place] [address] * (ABNORMAL) Thyroid Function [place] (10/17/2023 2:43 PM CDT) [facility] TSH, Sensitive 10.3(H) 0.3 - 4.2 mIU/L 10/17/2023 3:35 PM CDT [facility] Blood (Blood, Venous) 10/17/2023 2:43 PM CDT 10/17/2023 2:49 PM CDT Lizandro López M.D. LAB BLOOD ADD-ON [facility] [address] [place] [address], [facility] RDWG [facility] in [place] [address] [place] [address] * Pernicious Anemia [place] (10/17/2023 2:43 PM CDT) [facility] Vitamin B12 Assay, S 248 180 - 914 ng/L 10/18/2023 11:55 AM CDT [facility] Comment:B-12 <400; MMA test was performed. Blood (Blood, Venous) 10/17/2023 2:43 PM CDT 10/18/2023 8:35 AM CDT Narrative [facility] - 10/18/2023 11:55 AM CDT Specimen Information: Specimen ID: [id number] Specimen Type: Blood Specimen Collection Start Date: 10/17/2023 ??2:43 PM Specimen Received Date: 10/18/2023 ??8:35 AM Specimen ID: [id number] Specimen Type: Blood Specimen Collection Start Date: 10/17/2023 ??2:43 PM Specimen Received Date: 10/18/2023 ??8:52 AM Lizandro López M.D. LAB BLOOD NON ADD-ON [facility] [address] [place] [place] [address] [facility] [address] [place] [address] * Creatinine with Estimated GFR (10/17/2023 2:43 PM CDT) [facility] Creatinine 0.78 0.59 - 1.04 mg/dL 10/17/2023 3:17 PM CDT [facility] Estimated GFR (eGFR) 87 >=60 mL/min/BSA 10/17/2023 3:17 PM CDT [facility] Comment: Estimated GFR calculated using the 2020 CKD_EPI creatinine equation. Blood (Blood, Venous) 10/17/2023 2:43 PM CDT 10/17/2023 2:49 PM CDT Lizandro López M.D. LAB BLOOD ADD-ON [facility] [address] [place] [address], [facility] R[facility] in [address] [place] [address] * Phosphorus Inorganic (10/17/2023 2:43 PM CDT) Phosphorus (Inorganic), P 3.0 2.5 - 4.5 mg/dL 10/17/2023 3:17 PM CDT [facility] Blood (Blood, Venous) 10/17/2023 2:43 PM CDT 10/17/2023 2:49 PM CDT Lizandro López M.D. LAB BLOOD ADD-ON [facility] [address] [place] [address], [facility] [address] [address] * Calcium, Total (10/17/2023 2:43 PM CDT) Calcium, Total, P 9.3 8.6 - 10.0 mg/dL 10/17/2023 3:17 PM CDT [facility] Blood (Blood, Venous) 10/17/2023 2:43 PM CDT 10/17/2023 2:49 PM CDT Lizandro López M.D. LAB BLOOD ADD-ON [facility] [address] [place] [address] [address] * (ABNORMAL) Parathyroid Hormone (PTH) (10/17/2023 2:43 PM CDT) Parathyroid Hormone (PTH), S 74(H) 15 - 65 pg/mL 10/17/2023 3:27 PM CDT [facility] Comment: Biotin has been identified by the financial market dealer as a potential interfering substance. Higher concentrations of biotin may be found in multivitamins, hair/nail supplements, and workout supplements. If the result does not match clinical observations, repeat testing after patient refrains from the use of supplements for at least 12 hours. Blood (Blood, Venous) 10/17/2023 2:43 PM CDT 10/17/2023 2:49 PM CDT Lizandro López M.D. LAB BLOOD ADD-ON [facility] [address] [place] [address], [facility] R[facility] [place] [address] [place] [address] * Quantitative M-protein Study (10/17/2023 2:43 PM CDT) Pathologist [facility] Immunoglobulin A (IgA), S 87 61 - [...] PM CDT 10/18/2023 6:28 AM CDT Narrative [facility] - 10/19/2023 8:50 AM CDT Specimen Information: Specimen ID: [id number] Specimen Type: Blood Specimen Collection Start Date: 10/17/2023 11:00 PM Specimen Received Date: 10/18/2023 ??6:28 AM Specimen ID: [id number] Specimen Type: Blood Specimen Collection Start Date: 10/17/2023 ??2:43 PM Specimen Received Date: 10/18/2023 ??7:09 AM Lizandro López M.D. LAB BLOOD ADD-ON [facility] [address] [place] [address] [facility] [address] [place] [address] [facility] [address] [place] [address] * Antinuclear Ab [place], S (10/17/2023 2:43 PM CDT) Pathologist [facility] Antinuclear Ab Screen by IFA, S Negative Negative 10/19/2023 8:45 AM CDT [facility] Comment:No titer performed, COURT screen is negative. Blood (Blood, Venous) 10/17/2023 2:43 PM CDT 10/17/2023 9:02 PM CDT Lizandro López M.D. LAB BLOOD NON ADD-ON Performing Organization Address City/[facility]/ZIP Co de Phone Number [facility] [address] [place] [address], [facility] ECLR [address] [place] [address] * Hexosaminidase A and Total Hexosaminidase, Leukocytes (10/17/2023 2:43 PM CDT) Pathologist [facility] Hexosaminidase Total, WBC 23.9 16.4 - 36.2 [...] test MUGS). Please contact the [employer] medical cost consultant or genetic counselor data migration consultant ( ) if you have any [...] CDT Lizandro López M.D. LAB GENETIC TESTING [facility] [address] [place] [address], [facility] DT [address] [facility] [address] [place] [address] * Copper (10/17/2023 2:43 PM CDT) [facility] Copper, S 115 77 - 206 mcg/dL 10/18/2023 10:42 AM CDT [facility] Comment: ----ADDITIONAL INFORMATION---- This test was developed and its performance characteristics determined by [facility] in a manner consistent with CLIA requirements. This test has not been cleared or approved by the U.S. Food and Drug Administration. Blood (Blood, Venous) 10/17/2023 2:43 PM CDT 10/17/2023 9:48 PM CDT Lizandro López M.D. LAB BLOOD NON ADD-ON [facility] [address] [place] [address] [facility] [address] [place] [address] * CK (Creatine Kinase) (10/17/2023 2:43 PM CDT) Creatine Kinase, P 163 26 - 192 U/L 10/17/2023 3:17 PM CDT [facility] Blood (Blood, Venous) 10/17/2023 2:43 PM CDT 10/17/2023 2:49 PM CDT Lizandro López M.D. LAB BLOOD ADD-ON Performing Organization Address [facility] Co de Phone Number [facility] [address] [place] [address], [facility] RDWG [facility] [place] [address] [place] [address] * Vitamin E Level (10/17/2023 2:39 PM CDT) Pathologist [facility] A-Tocopherol, Vitamin E 13.6 5.5 - 17.0 mg/L 10/19/2023 8:25 AM CDT [facility] Comment: ----ADDITIONAL INFORMATION---- This test was developed and its performance characteristics determined by [facility] in a manner consistent with CLIA requirements. This test has not been cleared or approved by the U.S. Food and Drug Administration. Blood (Blood, Venous) 10/17/2023 2:39 PM CDT 10/18/2023 11:23 AM CDT Lizandro López M.D. LAB BLOOD NON ADD-ON Performing Organization Address City/[facility]/ZIP Co de Phone Number [facility] [address] [place] [address] [facility] [address] [place] [address] documented in this encounter Visit Diagnoses Diagnosis Other Motor Neuron Disease (HCC) documented in this encounter
--- OUTSIDE RECORDS SUMMARY | 2024-01-06 21:59 | XMS_ITS | Encounter Summary ---
Author Organization [facility] Address [address] [place] [address] Care Team Providers Care Payable Processor Name Role Phone Unavailable Primary Care Provider Unavailabl e Reason for Visit * Reason Onset Date Comments Follow-up Orders 10/18/2023 MRI in [facility] Encounter Details Date Type Department Care Team (Latest Contact Info) Description 10/18/2023 Clinical Communication Department of Neurology in [address] [phone] Lizandro López M.D. [address] [place] [phone] Follow-up Orders (MRI in [place] ) Social History Tobacco Use Types Packs/Day Years Used Date Smoking Tobacco: Never Smokeless Tobacco: Never Alcohol Use Standard Drinks/Week Comments Yes 5 (1 standard drink = 0.6 oz pur e alcohol) [facility] Utilities Answer Date Recorded In the past 12 months has [employer], gas, oil, or water [employer] threatened to shut off services in your [...] your living situation today? I have a [facility] place to live 10/22/2023 Sex and [...] CDT Multidisciplinary Visit Department of Neurology in [place], [place] [address] [place] [address] Lizandro López M.D. [address] [place] [address] documented as of this encounter Visit Diagnoses Not on filedocumented in this encounter
--- OUTSIDE RECORDS SUMMARY | 2024-01-06 21:59 | XMS_ITS | Encounter Summary ---
Author Organization [facility] Address [address] [place] [address] Care Team Providers Care Tape Duplicator Name Role Phone Unavailable Primary Care Provider Unavailabl e Reason for Referral * Outpatient (Routine) - Closed Specialty Diagnoses / Procedures Referred By Paolo t Referred To Contact Neurology Lizandro López M.D. [address] [place] [address] [facility] Region Referral ID Status Reason Start Date Expiration Date Visits Re quested Visits Authorized [id number] Closed 10/12/2023 04/12/2025 1 1 Reason for Visit * Reason Onset Date Comments Order Request 10/12/2023 F/u clinical vis it Encounter Details Date Type Department Care Team (Latest Contact Info) Description 10/12/2023 Clinical Communication Department of Neurology in [address] [phone] Lizandro López M.D. [address] [place] [phone] Order Request (F/u clinical visit ) Social [...] CDT Multidisciplinary Visit Department of Neurology in [place], [place] [address] [place] [address] Lizandro López M.D. [address] [place] [address] Scheduled Referrals Name Type Priority Associated Diagnoses Orde r Schedule Neurology office visit (clinic) Outpatient Referral Routine Expected: 10/12/2023, Expires: 01/11/2025 documented as of this encounter Visit Diagnoses Not on filedocumented in this encounter
--- OUTSIDE RECORDS SUMMARY | 2024-01-06 21:59 | XMS_ITS | Encounter Summary ---
Author Organization [facility] Address [address] [place] [address] Care Team Providers Care Bell Spinner Sousaphones Name Role Phone Unavailable Primary Care Provider Unavailabl e Reason for Referral * MRI/CAT/PET Scan (Routine) - Authorized Specialty Diagnoses / Procedures Referred By Robertac t Referred To Contact Radiology Diagnoses Other Motor Neuron Disease (HCC) Procedures MR Cervical Spine without and with IV Contrast Tyson Carreon M.D. [address] [place] [address] [facility] Referral ID Status Reason Start Date Expiration Date V isits Requested Visits Authorized [id number] Authorized 10/18/2023 10/17/2024 1 1 * MRI/CAT/PET Scan (Routine) - Authorized Specialty Diagnoses / Procedures Referred By Contac t Referred To Contact Radiology Diagnoses Anterior Horn Cell Disease (HCC) Procedures MR Brain without and with IV Contrast Tyson Carreon M.D. [address] [place] [address] [facility] Referral ID Status Reason Start Date Expiration Date V isits Requested Visits Authorized [id number] Authorized 10/18/2023 10/17/2024 1 1 * Outpatient (Routine) - Closed Specialty Diagnoses / Procedures Referred By Contac t Referred To Contact Neurology Tyson Carreon M.D. [address] [place] [address] [facility] Referral ID Status Reason Start Date Expiration Date Visits Re quested Visits Authorized [id number] Closed 10/17/2023 04/17/2025 1 1 * Speech Pathology (Routine) - Authorized Specialty Diagnoses / Procedures Referred By Contac t Referred To Contact Diagnoses Other Motor Neuron Disease (HCC) Procedures FACILITIES SPECIALIST Speech language evaluate and treat Tyson Carreon M.D. [address] [place] [address] [facility] Referral ID Status Reason Start Date Expiration Date V isits Requested Visits Authorized [id number] Authorized 10/17/2023 10/16/2024 1 1 * Outpatient (Routine) - Closed Specialty Diagnoses / Procedures Referred By Contac t Referred To Contact Diagnoses Other Motor Neuron Disease (HCC) Procedures EMG Tyson Carreon M.D. [address] [place] [address] [facility] Referral ID Status Reason Start Date Expiration Date Visits Re quested Visits Authorized [id number] Closed 10/17/2023 10/16/2024 1 1 Reason for Visit * Reason Comments Dysphagia * Outpatient (Routine) - Closed Specialty Diagnoses / Procedures Referred By Contac t Referred To Contact Neurology Tyson Carreon M.D. [address] [place] [phone] [facility] Referral ID Status Reason Start Date Expiration Date Visits Re quested Visits Authorized [id number] Closed 10/12/2023 04/12/2025 1 1 Encounter Details Date Type Department Care Team ([facility] st Contact Info) Description 10/17/2023 1:00 PM CDT Office Visit Department of Neurology in [place], [place] [address] [place] [phone] Tyson Carreon M.D. [address] [place] [address] Sclerosis Lateral Amyotrophic (HCC) (Primary Dx); Other Motor Neuron Disease (HCC); Anterior Horn Cell Disease (HCC) Discharge Disposition: Home or Self Care Social History Tobacco Use Types Packs/Day Years Used Date Smoking Tobacco: Never Smokeless Tobacco: Never Alcohol Use Standard Drinks/Week Comments Yes 5 (1 standard drink = 0.6 oz pur e alcohol) [facility] Utilities Answer Date Recorded In the [...] situation today? 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 She [...] A and Total Hexosaminidase, Leukocytes Antinuclear Ab [place], S Quantitative M-protein Study Parathyroid Hormone (PTH) Calcium, Total Phosphorus Inorganic Creatinine with Estimated GFR Vitamin E Level Ganglioside Antibody Panel Pernicious Anemia [place] Thyroid Function [place] Cryopreservation for Molecular Genetic Studies Neurology office visit (clinic) FACILITIES SPECIALIST Speech language evaluate and treat EMG Pulmonary [...] CDT Multidisciplinary Visit Department of Neurology in [place], [place] [address] [place] [address] Tyson Carreon M.D. [address] [place] [address] Scheduled Orders Name Type Priority Associated Diagnoses [...] ? Final Report Study Number: 1 EMG Monomer Purification Operator: Kylie Alcocer 127 or [phone] Referred by: TYSON CARREON (127 or [phone]) Referred for: Query bulbar onset ALS Referral [...] and cervical myotomes. Alberto Alcocer (127 or [phone])/ACV NERVE CONDUCTIONS ??Record Rep ?? Normal ??Normal [...] Electromyography Final Report Study Number: 1 EMG Monomer Purification Operator: Kylie Alcocer 127 or [phone] Referred by: TYSON CARREON (127 or [phone]) Referred for: Query bulbar onset ALS Referral [...] and cervical myotomes. Alberto Alcocer (127 or [phone])/ACV NERVE CONDUCTIONS Record Rep Normal Normal Distal [...] Carreon M.D. NEUROLOGY ORDERABLES Performing Organization Address City/[facility]/ZIP Co de Phone Number [facility] EMG * Lyme Ab Modified 2-Tier [...] - B LOOD ORDERABLES Performing Organization Address City/[facility] Co de Phone Number [facility] [address] [place] [address], [facility] ECLR [facility] [place] [address] * (ABNORMAL) Neurofilament Light Chain (NfL) (10/17/2023 2:49 PM CDT) Neurofilament Light Chain, P 70.7(H) <=25.4 pg/mL 10/19/2023 3:29 PM CDT [facility] Comment: ----ADDITIONAL INFORMATION---- The testing method is a digital immunoassay for the quantitative determination of NfL in plasma manufactured by [employer] and performed on the Cardback-X analyzer. Values obtained with different methods may be different and cannot be used interchangeably. This test was developed and its performance characteristics determined by [facility] in a manner consistent with CLIA requirements. This test has not been cleared or approved by the U.S. Food and Drug Administration. Blood (Blood, Venous) 10/17/2023 2:49 PM CDT 10/18/2023 8:38 AM CDT Tyson Carreon M.D. LAB BLOOD NON ADD-ON [facility] [address] [place] [address] [facility] [address] [place] [address] * Ganglioside Antibody Panel (10/17/2023 2:46 PM CDT) IgG Monos. GM1 Negative Negative 10/25/2023 2:11 PM CDT [facility] Comment: ----ADDITIONAL INFORMATION---- This test was developed and its performance characteristics determined by [facility] in a manner consistent with CLIA requirements. This test has not been cleared or approved by the U.S. Food and Drug Administration. IgM Monos. GM1 Negative Negative 10/25/2023 2:11 PM CDT [facility] Comment: ----ADDITIONAL INFORMATION---- This test was developed and its performance characteristics determined by [facility] in a manner consistent with CLIA requirements. This test has not been cleared or approved by the U.S. Food and Drug Administration. IgG Asialo. GM1 Negative Negative 4 2:11 PM CDT [facility] Comment: ----ADDITIONAL INFORMATION---- This test was developed and its performance characteristics determined by [facility] in a manner consistent with CLIA requirements. This test has not been cleared or approved by the U.S. Food and Drug Administration. IgM Asialo. GM1 Negative Negative 4 2:11 PM CDT [facility] Comment: ----ADDITIONAL INFORMATION---- This test was developed and its performance characteristics determined by [facility] in a manner consistent with CLIA requirements. This test has not been cleared or approved by the U.S. Food and Drug Administration. IgG Disialo. GD1b Negative Negative 024 2:11 PM CDT [facility] Comment: ----ADDITIONAL INFORMATION---- This test was developed and its performance characteristics determined by [facility] in a manner consistent with CLIA requirements. This test has not been cleared or approved by the U.S. Food and Drug Administration. IgM Disialo. GD1b Negative Negative 2:11 PM CDT [facility] Comment: ----ADDITIONAL INFORMATION---- This test was developed and its performance characteristics determined by [facility] in a manner consistent with CLIA requirements. This test has not been cleared or approved by the U.S. Food and Drug Administration. Blood (Blood, Venous) 10/17/2023 2:46 PM CDT 10/18/2023 10:15 AM CDT Tyson Carreon M.D. LAB BLOOD NON ADD-ON [facility] [address] [place] [address], [facility] DTL [address] [facility] [address] [place] [address] * Myelopathy, Autoimmune/Paraneoplastic Evaluation (10/17/2023 2:46 PM [...] performance characteristics determined by [facility] in a manner consistent with CLIA requirements. This test has not been cleared or approved by the U.S. Food and Drug Administration. AGNA-1, S Negative Negative 10/24/2023 5:13 PM CDT [facility] Comment: ----ADDITIONAL INFORMATION---- This test was developed and its performance characteristics determined by [facility] in a manner consistent with CLIA requirements. This test has not been cleared or approved by the U.S. Food and Drug Administration. NAEEM-1, S Negative Negative 10/24/2023 5:13 PM CDT [facility] Comment: ----ADDITIONAL INFORMATION---- This test was developed and its performance characteristics determined by [facility] in a manner consistent with CLIA requirements. This test has not been cleared or approved by the U.S. Food and Drug Administration. NAEEM-2, S Negative Negative 10/24/2023 5:13 PM CDT [facility] Comment: ----ADDITIONAL INFORMATION---- This test was developed and its performance characteristics determined by [facility] in a manner consistent with CLIA requirements. This test has not been cleared or approved by the U.S. Food and Drug Administration. NAEEM-3, S Negative Negative 10/24/2023 5:13 PM CDT [facility] Comment: ----ADDITIONAL INFORMATION---- This test was developed and its performance characteristics determined by [facility] in a manner consistent with CLIA requirements. This test has not been cleared or approved by the U.S. Food and Drug Administration. AP3B2 IFA, S Negative Negative 10/24/2023 5:13 PM CDT [facility] Comment: ----ADDITIONAL INFORMATION---- This test was developed and its performance characteristics determined by [facility] in a manner consistent with CLIA requirements. This test has not been cleared or approved by the U.S. Food and Drug Administration. CRMP-5-IgG Western Blot, S Negative Negative 10/24/2023 5:13 PM CDT [facility] Comment: ----ADDITIONAL INFORMATION---- This test was developed and its performance characteristics determined by [facility] in a manner consistent with CLIA requirements. This test has not been cleared or approved by the U.S. Food and Drug Administration. DPPX Ab CBA, S Negative Negative 10/24/2023 5:13 PM CDT [facility] Comment: ----ADDITIONAL INFORMATION---- This test was developed and its performance characteristics determined by [facility] in a manner consistent with CLIA requirements. This test has not been cleared or approved by the U.S. Food and Drug Administration. JOSE-B-R Ab CBA, S Negative Negative 2023 5:13 PM CDT [facility] Comment: ----ADDITIONAL INFORMATION---- This test was developed and its performance characteristics determined by [facility] in a manner consistent with CLIA requirements. This test has not been cleared or approved by the U.S. Food and Drug Administration. GAD65 Ab Assay, S 0.00 <=0.02 nmol/L 10/24/2023 5:13 PM CDT [facility] Comment: ----ADDITIONAL INFORMATION---- This test was developed and its performance characteristics determined by [facility] in a manner consistent with CLIA requirements. This test has not been cleared or approved by the U.S. Food and Drug Administration. GFAP IFA, S Negative Negative 10/24/2023 5:13 PM CDT [facility] Comment: ----ADDITIONAL INFORMATION---- This test was developed and its performance characteristics determined by [facility] in a manner consistent with CLIA requirements. This test has not been cleared or approved by the U.S. Food and Drug Administration. mGluR1 Ab IFA, S Negative Negative 10/24/19 24 5:13 PM CDT [facility] Comment: ----ADDITIONAL INFORMATION---- This test was developed and its performance characteristics determined by [facility] in a manner consistent with CLIA requirements. This test has not been cleared or approved by the U.S. Food and Drug Administration. MOG FACS, S Negative Negative 10/24/2023 5:13 PM CDT [facility] Comment: ----ADDITIONAL INFORMATION---- This test was developed and its performance characteristics determined by [facility] in a manner consistent with CLIA requirements. This test has not been cleared or approved by the U.S. Food and Drug Administration. NIF IFA, S Negative Negative 10/24/2023 5:13 PM CDT [facility] Comment: ----ADDITIONAL INFORMATION---- This test was developed and its performance characteristics determined by [facility] in a manner consistent with CLIA requirements. This test has not been cleared or approved by the U.S. Food and Drug Administration. NMO/AQP4 FACS, S Negative Negative 10/24/19 24 5:13 PM CDT [facility] Comment: ----ADDITIONAL INFORMATION---- This test was developed and its performance characteristics determined by [facility] in a manner consistent with CLIA requirements. This test has not been cleared or approved by the U.S. Food and Drug Administration. Neurochondrin IFA, S Negative Negative 10/24/2023 5:13 PM CDT [facility] Comment: ----ADDITIONAL INFORMATION---- This test was developed and its performance characteristics determined by [facility] in a manner consistent with CLIA requirements. This test has not been cleared or approved by the U.S. Food and Drug Administration. DRY ICE MACHINE OPERATOR-1, S Negative Negative 10/24/2023 5:13 PM CDT [facility] Comment: ----ADDITIONAL INFORMATION---- This test was developed and its performance characteristics determined by [facility] in a manner consistent with CLIA requirements. This test has not been cleared or approved by the U.S. Food and Drug Administration. DRY ICE MACHINE OPERATOR-2, S Negative Negative 10/24/2023 5:13 PM CDT [facility] Comment: ----ADDITIONAL INFORMATION---- This test was developed and its performance characteristics determined by [facility] in a manner consistent with CLIA requirements. This test has not been cleared or approved by the U.S. Food and Drug Administration. Septin-7 IFA, S Negative Negative 4 5:13 PM CDT [facility] Comment: ----ADDITIONAL INFORMATION---- This test was developed and its performance characteristics determined by [facility] in a manner consistent with CLIA requirements. This test has not been cleared or approved by the U.S. Food and Drug Administration. TRIM46 Ab IFA, S Negative Negative 10/24/19 24 5:13 PM CDT [facility] Comment: ----ADDITIONAL INFORMATION---- This test was developed and its performance characteristics determined by [facility] in a manner consistent with CLIA requirements. This test has not been cleared or approved by the U.S. Food and Drug Administration. Blood (Blood, Venous) 10/17/2023 2:46 PM CDT 10/18/2023 10:15 AM CDT Tyson Carreon M.D. LAB BLOOD ADD-ON [facility] [address] [place] [address], [facility] [address] [place] [address] * Cryopreservation for Molecular Genetic Studies (10/17/2023 [...] is not a DNA banking service. If usp, guaranteed specimen storage is required, DNA banking [...] M.D. LAB GENETIC TESTING Performing Organization Address [facility]/ZIP Co de Phone Number [facility] [address] [place] [address], [facility] DTL [address] [place] [address] * (ABNORMAL) Thyroid Function [place] (10/17/2023 2:43 PM CDT) TSH, Sensitive 10.3(H) 0.3 - 4.2 mIU/L 10/17/2023 3:35 PM CDT [facility] Blood (Blood, Venous) 10/17/2023 2:43 PM CDT 10/17/2023 2:49 PM CDT Tyson Carreon M.D. LAB BLOOD ADD-ON [facility] [address] [place] [address], [facility] RDW[facility] [place] [address] [address] * Pernicious Anemia [place] (10/17/2023 2:43 PM CDT) Vitamin B12 Assay, S 248 180 - 914 ng/L 10/18/2023 11:55 AM CDT [facility] Comment:B-12 <400; MMA test was performed. Blood (Blood, Venous) 10/17/2023 2:43 PM CDT 10/18/2023 8:35 AM CDT Narrative [facility] - 10/18/2023 11:55 AM CDT Specimen Information: Specimen ID: [id number] Specimen Type: Blood Specimen Collection Start Date: 10/17/2023 ??2:43 PM Specimen Received Date: 10/18/2023 ??8:35 AM Specimen ID: [id number] Specimen Type: Blood Specimen Collection Start Date: 10/17/2023 ??2:43 PM Specimen Received Date: 10/18/2023 ??8:52 AM Tyson Carreon M.D. LAB BLOOD NON ADD-ON [facility] [address] [place] [address] [place] [address] [place] [address] * Creatinine with Estimated GFR (10/17/2023 2:43 PM CDT) Creatinine 0.78 0.59 - 1.04 mg/dL 10/17/2023 3:17 PM CDT [facility] Estimated GFR (eGFR) 87 >=60 mL/min/BSA 10/17/2023 3:17 PM CDT [facility] Comment: Estimated GFR calculated using the 2020 CKD_EPI creatinine equation. Blood (Blood, Venous) 10/17/2023 2:43 PM CDT 10/17/2023 2:49 PM CDT Tyson Carreon M.D. LAB BLOOD ADD-ON [facility] [address] [place] [address], [facility] R[facility] [place] [address] [place] [address] * Phosphorus Inorganic (10/17/2023 2:43 PM CDT) Phosphorus (Inorganic), P 3.0 2.5 - 4.5 mg/dL 10/17/2023 3:17 PM CDT [facility] Blood (Blood, Venous) 10/17/2023 2:43 PM CDT 10/17/2023 2:49 PM CDT Tyson Carreon M.D. LAB BLOOD ADD-ON Performing Organization Address City/[facility]/ZIP Co de Phone Number [facility] [address] [address], [facility] [place] [address] [place] [address] * Calcium, Total (10/17/2023 2:43 PM CDT) Calcium, Total, P 9.3 8.6 - 10.0 mg/dL 10/17/2023 3:17 PM CDT [facility] Blood (Blood, Venous) 10/17/2023 2:43 PM CDT 10/17/2023 2:49 PM CDT Tyson Carreon M.D. LAB BLOOD ADD-ON [facility] [address] [place] [address], [facility] [place] [address] * (ABNORMAL) Parathyroid Hormone (PTH) (10/17/2023 2:43 PM CDT) Parathyroid Hormone (PTH), S 74(H) 15 - 65 pg/mL 10/17/2023 3:27 PM CDT [facility] Comment: Biotin has been identified by the exercise manager as a potential interfering substance. Higher concentrations of biotin may be found in multivitamins, hair/nail supplements, and workout supplements. If the result does not match clinical observations, repeat testing after patient refrains from the use of supplements for at least 12 hours. Blood (Blood, Venous) 10/17/2023 2:43 PM CDT 10/17/2023 2:49 PM CDT Tyson Carreon M.D. LAB BLOOD ADD-ON [facility] [address] [place] [address], [facility] [place] [address] [place] [phone] * Quantitative M-protein Study (10/17/2023 2:43 PM [...] performance characteristics determined by [facility] in a manner consistent with CLIA requirements. This test has not been cleared or approved by the U.S. Food and Drug Administration. Blood (Blood, Venous) 10/17/2023 2:43 PM CDT 10/18/2023 6:28 AM CDT Narrative [facility] - 10/19/2023 8:50 AM CDT Specimen Information: Specimen ID: [id number] Specimen Type: Blood Specimen Collection Start Date: 10/17/2023 11:00 PM Specimen Received Date: 10/18/2023 ??6:28 AM Specimen ID: [id number] Specimen Type: Blood Specimen Collection Start Date: 10/17/2023 ??2:43 PM Specimen Received Date: 10/18/2023 ??7:09 AM Tyson Carreon M.D. LAB BLOOD ADD-ON Performing Organization Address City/[facility]/ZIP Co de Phone Number [facility] [address] [place], [place] [phone] [place] [address] [place], [place] [address] [place] [address] [address] [place] [address] [place] [address] * Antinuclear Ab [place], S (10/17/2023 2:43 PM CDT) [facility] Antinuclear Ab Screen by IFA, S Negative Negative 10/19/2023 8:45 AM CDT [facility] Comment:No titer performed, COURT screen is negative. Blood (Blood, Venous) 10/17/2023 2:43 PM CDT 10/17/2023 9:02 PM CDT Tyson Carreon M.D. LAB BLOOD NON ADD-ON [facility] [address] [place] [address], [place] E[facility] [address] [place] [phone] * Hexosaminidase A and Total Hexosaminidase, Leukocytes [...] years), consider ruling out the B1 variant ([facility] test MUGS). Please contact the Biochemical Genetics systems consultant or genetic counselor medical communication specialist ( ) if you have any questions. 10/21/2023 2:17 PM CDT [facility] Comment: ----ADDITIONAL INFORMATION---- Heat Inactivation, Fluorometric This test was developed and its performance characteristics determined by [facility] in a manner consistent with CLIA requirements. This test has not been cleared or approved by the U.S. Food and Drug Administration. Blood (Blood, Peripheral Draw) 10/17/2023 2:43 PM CDT 10/18/2023 7:40 AM CDT Tyson Carreon M.D. LAB GENETIC TESTING [facility] [address] [place] [address], [facility] DTL [address] [facility] [address] [place] [address] * Copper (10/17/2023 2:43 PM CDT) Pathologist [facility] Copper, S 115 77 - 206 mcg/dL 10/18/2023 10:42 AM CDT [facility] Comment: ----ADDITIONAL INFORMATION---- This test was developed and its performance characteristics determined by [facility] in a manner consistent with CLIA requirements. This test has not been cleared or approved by the U.S. Food and Drug Administration. Blood (Blood, Venous) 10/17/2023 2:43 PM CDT 10/17/2023 9:48 PM CDT Tyson Carreon M.D. LAB BLOOD NON ADD-ON Performing Organization Address City/[facility]/ZIP Co de Phone Number [facility] [address] [place] [address] [facility] [address] [place] [address] * CK (Creatine Kinase) (10/17/2023 2:43 PM CDT) Creatine Kinase, P 163 26 - 192 U/L 10/17/2023 3:17 PM CDT [facility] Blood (Blood, Venous) 10/17/2023 2:43 PM CDT 10/17/2023 2:49 PM CDT Tyson Carreon M.D. LAB BLOOD ADD-ON Performing Organization Address City/[facility]/ZIP Co de Phone Number [facility] [address] [place] [address], [facility] [place] [address] [place] [phone] * Vitamin E Level (10/17/2023 2:39 PM CDT) A-Tocopherol, Vitamin E 13.6 5.5 - 17.0 mg/L 10/19/2023 8:25 AM CDT [facility] Comment: ----ADDITIONAL INFORMATION---- This test was developed and its performance characteristics determined by [facility] in a manner consistent with CLIA requirements. This test has not been cleared or approved by the U.S. Food and Drug Administration. Blood (Blood, Venous) 10/17/2023 2:39 PM CDT 10/18/2023 11:23 AM CDT Tyson Carreon M.D. LAB BLOOD NON ADD-ON [facility] [address] [place] [address] [facility] [address] [place] [address] 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
--- OUTSIDE RECORDS SUMMARY | 2024-01-06 21:59 | XMS_ITS | Encounter Summary ---
Author Organization [facility] Address [address] [place] [address] Care Team Providers Care Paint Crew Supervisor Name Role Phone Unavailable Primary Care Provider Unavailabl e Reason for Referral * Outpatient (Routine) - Closed Specialty Diagnoses / Procedures Referred By Paolo llanos Referred To Contact Diagnoses Other Motor Neuron Disease (HCC) Procedures EMG [place] [address] [facility] Referral ID Status Reason Start Date Expiration Date Visits Re quested Visits Authorized [id number] Closed 10/17/2023 10/16/2024 1 1 Reason for Visit * Outpatient (Routine) - Closed Specialty Diagnoses / Procedures Referred By Paolo llanos Referred To Contact Diagnoses Other Motor Neuron Disease (HCC) Procedures EMG [place] [address] [facility] Referral ID Status Reason Start Date Expiration Date Visits Re quested Visits Authorized [id number] Closed 10/17/2023 10/16/2024 1 1 Encounter Details Date Type Department Care Team (Latest Contact Info) Description 10/19/2023 7:11 AM CDT - 10/19/2023 11:59 PM CDT Hospital Encounter Department of Neurology in [place], [place] [address] [place] [phone] Tyson Carreon M.D. [address] [place] [address] Other Motor Neuron Disease (HCC) Discharge Disposition: Home or Self Care Social History Tobacco Use Types Packs/Day Years Used Date Smoking Tobacco: Never Smokeless Tobacco: Never Alcohol Use Standard Drinks/Week Comments Yes 5 (1 standard drink = 0.6 oz pur e alcohol) [facility] Utilities Answer Date Recorded In the past 12 months has e [employer], gas, oil, or water [employer] threatened to shut off services in your [...] your living situation today? I have a [facility] place to live 10/22/2023 Sex and Gender [...] CDT Multidisciplinary Visit Department of Neurology in [place], [place] [address] [place] [phone] Tyson Carreon M.D. [address] [place] [phone] documented as of this encounter Procedures Procedure [...] ? Final Report Study Number: 1 EMG Email Campaign Manager: Kylie Alcocer 127 or [phone] Referred by: TYSON CARREON (127 or [phone]) Referred for: Query bulbar onset ALS Referral [...] and cervical myotomes. Alberto Alcocer (127 or [phone])/ACV NERVE CONDUCTIONS ??Record Rep ?? Normal ??Normal [...] Electromyography Final Report Study Number: 1 EMG Email Campaign Manager: Kylie Alcocer 127 or [phone] Referred by: TYSON CARREON (127 or [phone]) Referred for: Query bulbar onset ALS Referral [...] and cervical myotomes. Alberto Alcocer (127 or [phone])/ACV NERVE CONDUCTIONS Record Rep Normal Normal Distal [...] CDT Tyson Carreon M.D. NEUROLOGY ORDERABLES EMG documented in this encounter Visit Diagnoses Diagnosis Other Motor Neuron Disease (HCC) documented in this encounter
--- OUTSIDE RECORDS SUMMARY | 2024-01-06 21:59 | XMS_ITS | Encounter Summary ---
Author Organization [facility] Address [address] [place] [address] Care Team Providers Care Bar Staff Name Role Phone Unavailable Primary Care Provider Unavailabl e Reason for Referral * Medication Prior Authorization - Closed Specialty Diagnoses / Procedures Referred By Paolo llanos Referred To Contact Lizandro Carreon M.D. [address] [place] [address] Referral ID Status Reason Start Date Expiration Date Visits Re quested Visits Authorized [id number] Closed 1 1 * Outpatient (Routine) - Authorized Specialty Diagnoses / Procedures Referred By Contsuellen t Referred To Contact Neurology Diagnoses Sclerosis Lateral Amyotrophic (HCC) Lizandro Carreon M.D. [address] [place] [address] Referral ID Status Reason Start Date Expiration Date V isits Requested Visits Authorized [id number] Authorized 10/26/2023 04/26/2025 1 1 * Outpatient (Routine) - Authorized Specialty Diagnoses / Procedures Referred By Contac t Referred To Contact Speech Language Pathology Diagnoses Sclerosis Lateral Amyotrophic (HCC) Lizandro Carreon M.D. [address] [place] [address] Referral ID Status Reason Start Date Expiration Date Visits Requested Visits Authorized [id number] Authorized Patient Preference 10/26/2023 04/26/2025 1 1 * Outpatient (Routine) - Authorized Specialty Diagnoses / Procedures Referred By Paolo llanos Referred To Contact Respiratory Therapy Diagnoses Sclerosis Lateral Amyotrophic (HCC) Lizandro Carreon M.D. [address] [place] [address] Referral ID Status Reason Start Date Expiration Date V isits Requested Visits Authorized [id number] Authorized 10/26/2023 04/26/2025 1 1 Reason for Visit * Reason Comments motor neuron disease Follow up * Outpatient (Routine) - Closed Specialty Diagnoses / Procedures Referred By Paolo llanos Referred To Contact Neurology Lizandro Carreon M.D. [address] [place] [address] [facility] Region Referral ID Status Reason Start Date Expiration Date Visits Re quested Visits Authorized [id number] Closed 10/17/2023 04/17/2025 1 1 Encounter Details Date Type Department Care Team (Late st Contact Info) Description 10/25/2023 3:30 PM CDT Office Visit Department of Neurology in [address] [phone] Lizandro Carreon M.D. [address] [place] [address] Sclerosis Lateral Amyotrophic (HCC) (Primary Dx) Discharge Disposition: Home or Self Care Social History Tobacco Use Types Packs/Day Years Used Date Smoking Tobacco: Never Smokeless Tobacco: Never Alcohol Use Standard Drinks/Week Comments Yes 5 (1 standard drink = 0.6 oz pur e alcohol) [facility] Utilities Answer Date Recorded In the past 12 months has [employer], gas, oil, or water [employer] threatened to shut off services in your [...] your living situation today? I have a [facility] place to live 10/22/2023 Sex and [...] Calcium and phosphorous She underwent EMG in [place] which showed long duration polyphasic varying motor [...] cord with and without contrast done in [place] and I have reviewed these. Overall these [...] like to see a neuromuscular subspecialist in [place], I could expedite this but there are [...] diagnoses (which were out of network at [place]), as these were medically necessary and also many of labs would have been send-out to [place] or another tertiary referral center as many [...] We discussed clinical research studies in ALS. detention complications - ALS is a disorder that [...] CDT Multidisciplinary Visit Department of Neurology in [place], [place] [address] [place] [address] Lizandro Carreon M.D. [address] [place] [address] Scheduled Orders Name Type Priority Associated Diagnoses Orde r Schedule Hepatic Function Panel Lab Add-On Sclerosis Lateral Amyotrophic (HCC) Expected: 10/25/2023, Expires: 01/24/2025 CBC with Differential, Blood Lab Add-On Sclerosis Lateral Amyotrophic (HCC) Expected: 10/25/2023, Expires: 01/24/2025 documented as of this encounter Visit Diagnoses Diagnosis Sclerosis Lateral Amyotrophic (HCC)- Primary documented in this encounter
[2024-01-06 22:10] LABS: Albumin* 4.5 g/dL (3.3-5.0); Chloride* 103 mmol/L (96-114); Potassium* 4.2 mmol/L (3.6-5.1); Sodium* 138 mmol/L (135-149)
[2024-01-06 22:13] LABS: Alanine Aminotransferase* 26 U/L (4-35); Alkaline Phosphatase* 70 U/L (40-150); Anion Gap 7 mEq/L (7-15); Aspartate Amino Transferase* 37 U/L (12-35); Bilirubin Total* 0.4 mg/dL (0.1-1.5); Blood Urea Nitrogen* 22 mg/dL (7-30); Carbon Dioxide* 28 mmol/L (20-32); Creatinine* 1.1 mg/dL (0.5-1.5); Estimated Glomerular Filt Rate 58 ml/min; Glucose* 91 mg/dL (60-115); Total Protein* 7.1 g/dL (6.0-8.3)
[2024-01-06 22:14] LABS: Calcium* 9.8 mg/dL (8.4-10.6)
== END 2024-01-06 21:50 | disposition home or self-care (01) ==
LOC: NPINS 21:49
PROVIDERS: PCP Physician Assistant Medical; Visit Provider Family Medicine
DX: R13.10 Dysphagia, unspecified (principal); U09.9 Post COVID-19 condition, unspecified; R06.00 Dyspnea, unspecified; N95.1 Menopausal and female climacteric states; Z63.79 Other stressful life events affecting family and household; R47.81 Slurred speech; E03.9 Hypothyroidism, unspecified; L20.9 Atopic dermatitis, unspecified; K59.00 Constipation, unspecified; M25.50 Pain in unspecified joint
CPT/HCPCS: 80053

== ENCOUNTER 2024-08-13 07:28 | Outpatient (CLI) | payer MEDICARE, BC, SELFPAY | END 2024-08-13 07:29 | disposition home or self-care (01) | LOC: FRMREF 07:28 | PROVIDERS: PCP Physician Assistant Medical; Visit Provider Physician Assistant Medical | DX: E03.9 Hypothyroidism, unspecified (principal) | CPT/HCPCS: 84443 ==

== ENCOUNTER 2024-09-18 11:35 | Outpatient (CLI) | payer MEDICARE, BC, SELFPAY | END 2024-09-18 11:36 | disposition home or self-care (01) | LOC: FRMREF 11:37 | PROVIDERS: PCP Physician Assistant Medical; Visit Provider Physician Assistant Medical | DX: Z11.9 Encounter for screening for infectious and parasitic diseases, unspecified (principal) | CPT/HCPCS: 86618 ==

== ENCOUNTER 2024-09-26 23:00 | Emergency (ER) | payer MEDICARE, BC, SELFPAY ==
--- OUTSIDE RECORDS SUMMARY | 2024-09-26 23:03 | XMS_ITS | Data Portability ---
Author Organization [facility], Main Office Address [address] [place] [address] Assessment Encounter Date Assessment Date Assessment LastModified by Organization Details LastModified Time 08/04/2018 08/04/2018 1. Neoplasm uncertain etiology right chest. We discussed potential basal anesthetized 1% lidocaine with epinephrine tangential shave biopsy performed tissue submitted wound care instructions given. Reviewed topical therapy such as Efudex, versus standard therapy versus Mohs surgery. 2. History of basal carcinoma left tenriism region, status post Mohs surgery in the past, no evidence of recurrence. Discussed signs symptoms basal cell, squamous cell melanoma. Follow-up pending pathology [id number] Not available 08/05/2018 00:15:48 03/01/2022 03/01/2022 1. Neoplasm uncertain etiology left vertex the area was anesthetized with 1% lidocaine with epinephrine, a tangential shave biopsy performed, tissue submitted and wound care instructions given. Discussed the potential vascular nature 2. History of basal carcinoma left tenriism not evaluated Today's visit is performed as a courtesy. Follow-up pending pathology [email or web address] Not available 03/02/2022 00:19:56 Plan of Treatment Reminders Order Date Submit Date Provider Last Modified By Organization Details Last Modified Time Details Appointments None record ed. Lab pathol ogy, skin 022 03/01/20 22 [facility], [address] [place] [address], [facility] [address], [place], [address], 18:58:18 pathol ogy, skin 019 08/05/19 19 [facility], [address] [place] [address] [address], [place], [address], 12:40:08 Referral None record ed. Procedures None record ed. Surgeries None record ed. Imaging None record ed. Medication Orders None record ed. Patient TargetsNo targets recorded. Patient InstructionsNo instructions recorded. Reason for Referral None Reported. Results Created Date Observation Date Name Description Value Unit Range Abnormal Flag Note LastModifiedBy Organization Detail LastModifiedTime Result Notes None recorded. Medical Equipment None Reported. Medications Name Sig Start Date Stop Date Status Note LastModified by Organization Details LastModified Time venlafaxine ER 37.5 mg capsule,extende d release 24 hr TAKE ONE CAPSULE BY MOUTH EVERY DAY active Not Available Not Available No t Available azithromycin 250 mg tablet active Not Available Not Availabl e Not Available benzonatate 100 mg capsule active Not Available Not Available N ot Available levothyroxine 50 mcg tablet TAKE ONE TABLET BY MOUTH EVERY DAY . active Not Available Not Available No t Available Cheratussin AC 10 mg-100 mg/5 mL oral liquid active Not Available Not Availab le Not Available Vitals None Recorded Social History None recorded. Functional Status None recorded. Mental Status None recorded. Family History Nothing Reported. Medical History No medical history recorded. Gynecological HistoryNo gynecological history recorded. Obstetrics History GPAL:G 0 P 0 0 0 0 Past Encounters Encounter ID Performer Location Encounter Start Date Encounter Closed Date Diagnosis/Indication Diagnosis SNOMED-CT Code Diagnosis ICD10 Code Diagnosis Note [id number] Sherice Elkins MD [facility] [address] [facility] [place] [address] 08/04/2018 12:00:16 08/05/2018 00:40:57 Neoplasm of uncertain behavior of skin 29205867 D48.5 History of malignant basal cell neoplasm of skin 202557405 Z85.828 Solar lentigo 76954012 L 81.4 [id number] Sherice Elkins MD Main Office [address] [facility] [place] [address] 03/01/2022 16:19:10 03/02/2022 00:28:22 Neoplasm of uncertain behavior of skin 43455757 D48.5 Health Concerns Section Related Observation LastModified by Organization Detai ls LastModified Time None Recorded Concern Status LastModified by Organization Details LastModified Time None Recorded Advance Directives Directive None Recorded Payers Insurance Date Sequence Insurance Name Policy Number Policy Butts Covered Member ID Butts Member ID Guarantor Name 03/01/2022 1 [employer] (PPO) [id number] Magaly Hinojosa [id number] Magaly Hinojosa Notes Date Note Type Note Provider Name and Address Organization Details Recorded Time 08/04/2018 text/html 53-year-old adrienne amato with lesion on the right chest present for months not healing, does not bleed does not scab no prior treatments. She has a history of basal carcinoma on the left lateral tenriism treated with Mohs surgery in the past. She notes no pain or discomfort at this site. Social history , children and grandchildren. Does not smoke. Raised in [place] with marked moderate sun exposure. Past medical history reviewed from intake. Family history no melanoma. Review of systems overall feels in excellent health no issues with bleeding, clotting. Sherice Elkins MD [address] [place], [address], Formerly named [facility] 08/05/2018 00:40:50 03/01/2022 text/html 56-year-old adrienne amato presents today as a work in for a biopsy of a site she demonstrated to me and work on her left scalp. Apparently only present for 4 years. Thought to be vascular. Does not hurt does not bleed but may have changed in color shape and size. She has a prior history of basal carcinoma treated elsewhere in the past with Mohs surgery on the left tenriism Family history social history unchanged her has retired. Sherice Elkins MD [address] [employer], [place], [address], Formerly named [facility] 03/02/2022 00:27:38 OBGyn Episode No OBEpisode recorded.
--- OUTSIDE RECORDS SUMMARY | 2024-09-26 23:03 | XMS_ITS | Encounter Summary ---
Author Organization [facility] Address [address] [place] [address]. [place] [address] Care Team Providers Care Certified Medication Aide Name Role Phone Nicanor Thomas MD Primary Care Provider Natacha Meade [facility] Unavailable [phone] Natacha Meade [facility] Unavailable [phone] Yemi Bacon MD Unavailable Encounter Details Date Type Department Care Team (Late st Contact Info) Description 12/06/2023 [facility] Medical Advice [facility] [address] [place] [address] Yemi Bacon MD [address] [place] [address] [id number] [place] [address] Social History Tobacco Use Types Packs/Day Years Used Date Smoking Tobacco: Never Alcohol Use Standard Drinks/Week Comments Yes 0 (1 standard drink = 0.6 oz pur e alcohol) 3 drinks weekly PHQ-2 Answer Date Recorded PHQ-2 Score 2 11/10/2023 Adolescent Education Answer Date Record ed Getting School Help Needed Not on file 11/01 Comments No Sex and Gender Information Value Date Recorded Sex Assigned at Not on file 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 Gender Identity Not on file Sexual Orientation Not on file documented as of this encounter Plan of Treatment Not on file documented as of this encounter Visit Diagnoses Not on filedocumented in this encounter Care Teams Certified Medication Aide Relationship Specialty Start Date End Date Nicanor Thomas MD [facility] [address] [place] [address] PCP - General 07/13/05 Natacha Meade [facility] [address] [place], [place] [address] Pharmacist Pharmacist 11/09/23 02/08/24 Natacha Meade [facility] [address] [place], [place] [phone] Assigned MTM Pharmacist 11/25/23 Yemi Bacon MD 9 [facility] [id number] [place], [place] [id number] Assigned Neuroscience Provider 11/25/23 documented as of this encounter
--- OUTSIDE RECORDS SUMMARY | 2024-09-26 23:03 | XMS_ITS | Encounter Summary ---
Author Organization [facility] Address [address] [place] [address]. [place] [address] Care Team Providers Care Supervisor Glycerin Name Role Phone Nicanor Thomas MD Primary Care Provider Natacha Meade [facility] Unavailable [phone] Natacha Meade [facility] Unavailable [phone] Yemi Bacon MD Unavailable Encounter Details Date Type Department Care Team (Late st Contact Info) Description 12/30/2023 [facility] Medical Advice 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 Gender Identity Not on file Sexual Orientation Not on file documented as of this encounter Plan of Treatment Not on file documented as of this encounter Visit Diagnoses Not on filedocumented in this encounter Care Teams Supervisor Glycerin Relationship Specialty Start Date End Date Nicanor Thomas MD [facility] [address] [place] [address] PCP - General 07/13/05 Natacha Meade [facility] 9 [place], [place] [address] Pharmacist Pharmacist 11/09/23 02/08/24 Natacha Meade [facility] 9 [place], [place] [id number] Assigned MTM Pharmacist 11/25/23 Yemi Bacon MD 9 [facility] [id number] [place], [place] [id number] Assigned Neuroscience Provider 11/25/23 documented as of this encounter
--- OUTSIDE RECORDS SUMMARY | 2024-09-26 23:03 | XMS_ITS | Encounter Summary ---
Author Organization [facility] Address [address] [place] [address]. [place] [address] Care Team Providers Care Electron Beam Photo Mask Maker Name Role Phone Nicanor Thomas MD Primary Care Provider Natacha Meade [facility] Unavailable [phone] Natacha Meade [facility] Unavailable [phone] Yemi Bacon MD Unavailable Encounter Details Date Type Department Care Team (Late st Contact Info) Description 11/09/2023 [facility] [place] [facility] [address] [address] Natacha Meade, [address] [address] Social History Tobacco Use Types [...] on file 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 Gender Identity Not on file Sexual Orientation Not on file documented as of this encounter Plan of Treatment Not on file documented as of this encounter Visit Diagnoses Not on filedocumented in this encounter Care Teams Electron Beam Photo Mask Maker Relationship Specialty Start Date End Date Nicanor Thomas MD [facility] [address] [place] [address] PCP - General 07/13/05 Natacha Meade [facility] [address] [place] [address] Pharmacist Pharmacist 11/09/23 02/08/24 Natacha Meade [facility] [address] [place], [place] [address] Assigned MTM Pharmacist 11/25/23 Yemi Bacon MD 9 [facility] [id number] [place] [id number] Assigned Neuroscience Provider 11/25/23 documented as of this encounter
--- OUTSIDE RECORDS SUMMARY | 2024-09-26 23:03 | XMS_ITS | Clinical Summary ---
Author Organization [facility] Address [address] [place] [address]. [place] [address] Care Team Providers Care Brick Or Block Maker Name Role Phone Nicanor Thomas MD Primary Care Provider Natacha Meade [facility] Unavailable [phone] Yemi Bacon MD Unavailable Allergies Active Allergy Reactions Criticality Noted Date Comments Penicillins Rash High 06/18/2013 Medications levothyroxine (SYNTHROID/LEVO THROID) 50 MCG tablet Take 50 mcg by [...] Take 50 mg by mouth Twice daily 4 Active edaravone (RADICAVA ORS) 105 MG/5ML suspensionIndic ations:ALS (amyotrophic lateral sclerosis) (H) Take 5 mLs (105 mg) by mouth daily For 10 days out of 14 days in the morning on an empty stomach. Then do not take medication for 14 days. Shake well before each use. 50 mL 11 4 Active edaravone (RADICAVA ORS STARTER KIT) 105 MG/5ML suspensionIndic ations:ALS (amyotrophic lateral sclerosis) (H) Take 5 mLs (105 mg) by mouth daily For 14 days in the morning on an empty stomach. Then do not take medication for 14 days. Shake well before each use. 70 mL 4 Active dextromethorpha n-quiNIDine (NUEDEXTA) 20-10 MG capsuleIndicati ons:ALS (amyotrophic lateral sclerosis) (H) Take 1 capsule by mouth once daily for 7 days and then increase to 1 capsule by mouth twice daily 60 capsule 2 4 Active Immunizations Immunization Administration Dates Next Due COVID-19 MONOVALENT 12+ (Pfizer) 04/15/2020,03/05 V4z3-21 Novel Flu 02/10/2009 Hepatitis A (VAQTA)(ADULT 19+) 11/15/2022,2013 Influenza (intradermal) 01/30/2014 Influenza (prior to 2023) 01/22/2020,01/2018,01/02/2013,2011,01/12/2011,01/07/2010 Influenza Vaccine 18-64 (Flublok) 01/26/2022,01/2019 Influenza Vaccine >6 months,quad, PF 12/2016,01/21/2016,01/08/2015,2008 TDAP (Adacel,Boostrix) 12/20/2017 Typhoid IM 11/15/2022,03/22/2014 Zoster recombinant adjuvante d (Shingrix) 08/01/2023,01/06/2023 Family History Medical History Relation Comments [...] on file 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 Gender Identity Not on file Sexual Orientation [...] 11/02/2023 2:01 PM CDT Plan of Treatment Health Maintenance Due Date Last Done Comments ADVANCE CARE PLANNING 1965 ANNUAL REVIEW OF HM ORDERS 1964 CT COLONOGRAPHY 1964 FIT 1965 FLEX SIG 1964 sDNA (Cologuard) 1964 COLONOSCOPY 1974 COLORECTAL CANCER SCREENING 1974 HIV SCREENING 1979 HEPATITIS C SCREENING 1982 MEDICARE ANNUAL WELLNESS VISIT 07/20/2006 07/20/2005 TSH W/FREE T4 REFLEX 07/20/2006 07/20/2005 PAP 07/20/2008 07/20/2005 DIABETES SCREENING 08/03/2008 08/03/2005 MAMMO SCREENING 01/02/2009 01/02/2007 LIPID 08/03/2010 08/03/2005 PNEUMOCOCCAL VACCINE 50+ YEARS (1 of 1 - PCV) 2014 COVID-19 VACCINE ( season) 2023 03/03/2023, 05/14/2022, 02/08/2021, Additional history exists RSV VACCINE (1 - Risk 60-74 years 1-dose series) 2024 PHQ-2 (once per calendar year) 2024 11/10/2023 INFLUENZA VACCINE (Season Ended) 2024 01/26/2022, 01/22/2020, 01/11/2019, Additional history exists DTAP/TDAP/TD VACCINE (2 - Td or Tdap) 12/21/2027 12/20/2017 ZOSTER VACCINE Completed 08/01/2023, 01/06/2023 HPV VACCINE Aged Out No longer eligi ble based on patient's age to complete this topic MENINGITIS VACCINE Aged Out No longer eligible based on patient's age to complete this topic Procedures Procedure Name Priority Date/Time Associated Diagnosis Comments HC MAMMOGRAM, SCREENING BILATERAL Routine 01/02/2007 3:39 PM CDT HCL GLUCOSE Routine 08/03/2005 9:11 AM CDT Screening-Diabetes Mellitus CL AFF A.M.A. LIPID PANEL Routine 08/03/2005 9:11 AM CDT Screening-Lipoid Disorders ZZHCL TSH W/FREE T4 REFLEX Routine 07/20/2005 11:40 AM CDT Irregular Menstruation HCL PAP THIN LAYER SCREEN Routine 07/20/2005 12:00 AM CDT Routine Medical Exam from Last 3 Months or Most Recently Relevant to Health Maintenance Results * MAMMOGRAM, SCREENING (01/02/2007 3:39 PM CDT) Anatomical Region Laterality Modality Other 01/02/2007 3:39 PM CDT Impressions 01/04/2007 3:42 PM CDT EXAM: BILATERAL SCREENING MAMMOGRAPHY HISTORY/COMPARISON: Routine,baseline Breast parenchyma: Heterogeneous. FINDINGS: Negative. IMPRESSION: Category 1. Negative. This exam was evaluated with the assistance of computer aided detection (CAD). us Yemi Brown MD SPECIAL IMAGING STUDIES Petey aman * GLUCOSE (08/03/2005 9:11 AM CDT) Glucose 88 60 - 110 mg/dL [facility] 08/03/2005 9:11 AM CDT 08/03/2005 9:13 AM CDT Nicanor Thomas MD LABORATORY Final R esult Performing Organization Address [facility] Co de Phone Number [address] [address] * (ABNORMAL) A.M.A. LIPID PANEL (08/03/2005 9:11 AM CDT) Cholesterol 147 0 - 200 mg/dL [facility] Comment: LDL Cholesterol is the primary guide to therapy: LDL-cholesterol goal in high risk patients is <100 mg/dL and in very high risk patients is <70 mg/dL. The NCEP recommends further evaluation of: patients with cholesterol <200 mg/dL if additional risk factors are present, cholesterol >240 mg/dL, triglycerides >150 mg/dL, or HDL <40 mg/dL. Triglycerides 73 0 - 150 mg/dL [facility] HDL Cholesterol 45(L) 50 - 110 mg/dL [facility] LDL Cholesterol Calculated 87 0 - 129 mg/dL [facility] Comment: LDL Cholesterol is the primary guide to therapy: LDL-cholesterol goal in high risk patients is <100 mg/dL and in very high risk patients is <70 mg/dL. VLDL-Cholesterol 15 0 - 30 mg/dL [facility] Cholesterol/HDL Ratio 3.2 0.0 - 5.0 [facility] 08/03/2005 9:11 AM CDT 08/03/2005 9:13 AM CDT Nicanor Thomas MD LABORATORY Final R esult Performing Organization Address City/[facility]/ZIP Co de Phone Number [address] [address] * TSH W/FREE T4 REFLEX (07/20/2005 11:40 AM CDT) TSH 3.64 0.4 - 5.0 mU/L [facility] 07/20/2005 11:4 0 AM CDT 07/20/2005 11:42 AM CDT us Nicanor Thomas MD LABORATORY Final R esult [facility] [address] [place] [address] * A THIN LAYER PAP SCREEN (07/20/2005 12:00 AM CDT) PAP [facility] Copath Report Patient Name: MAGALY HINOJOSA MR#: [id number] Specimen #: [id number] Collected: 07/20/2005 Received: 07/21/2005 Reported: 07/22/2005 08:34 Ordering Phy(s): NICANOR THOMAS SPECIMEN/STAIN PROCESS: Pap thin layer prep screening (SurePath) Pap-Cyto x 1, Reflex HPV x 1 SOURCE: Cervical, endocervical Pap thin layer prep screening ([facility]) SPECIMEN ADEQUACY: Satisfactory for evaluation. -Transformation zone component present. CYTOLOGIC INTERPRETATION: Negative for Intraepithelial Lesion or Malignancy Electronically signed out by: HUBER Finn (ASCP) Processed and screened at [facility], [facility] CLINICAL HISTORY: Irregular Bleeding Other: spotting, Previous normal pap Date of Last Pap: 3 Other: history previous abnormal 8 years ago/colpo normal paps since that time), TESTING LAB LOCATION: [address] [address] COLLECTION SITE: Client: [facility] Location: [facility] (R) COPATH 07/20/2005 07/21/2005 10: 18 AM CDT us Nicanor Thomas MD LABORATORY Final R esult COPATH from Last 3 Months or Most Recently Relevant to Health Maintenance Insurance [facility] INDIVIDUAL MEDICARE [facility] INDIVIDUAL MEDICARE * Guarantor: Magaly Hinojosa Account Type Relation to Patient Date of Phone Billing Address Medication Therapy Self 1965 [place] [address] [facility] INDIVIDUAL Care Teams Brick Or Block Maker Relationship Specialty Start Date End Date Nicanor Thomas MD [facility] [address], [place] [id number] PCP - General 07/13/05 Natacha Meade [facility] [address] [place] [address] Assigned MTM Pharmacist 11/25/23 Yemi Bacon MD 9 [facility] [address] Assigned Neuroscience Provider 11/25/23
--- OUTSIDE RECORDS SUMMARY | 2024-09-26 23:03 | XMS_ITS | Encounter Summary ---
Author Organization [facility] Address [address] [place] [address]. [place] [address] Care Team Providers Care Shop Supervisor Name Role Phone Nicanor Thomas MD Primary Care Provider Natacha Meade [facility] Unavailable [phone] Natacha Meade [facility] Unavailable [phone] Yemi Bacon MD Unavailable Encounter Details Date Type Department Care Team (Late st Contact Info) Description 11/23/2023 [facility] Medical Advice 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 Gender Identity Not on file Sexual Orientation Not on file documented as of this encounter Plan of Treatment Not on file documented as of this encounter Visit Diagnoses Not on filedocumented in this encounter Care Teams Shop Supervisor Relationship Specialty Start Date End Date Nicanor Thomas MD [facility] [address] [place] [address] PCP - General 07/13/05 Natacha Meade [facility] 9 [place], [place] [address] Pharmacist Pharmacist 11/09/23 02/08/24 Natacha Meade [facility] 9 [place], [place] [phone] Assigned MTM Pharmacist 11/25/23 Yemi Bacon MD 9 [facility] [id number] [place], [place] [id number] Assigned Neuroscience Provider 11/25/23 documented as of this encounter
--- OUTSIDE RECORDS SUMMARY | 2024-09-26 23:03 | XMS_ITS | Encounter Summary ---
Author Organization [place] Address [address] [place] [address]. [place] [address] Care Team Providers Care Transitional Studies Instructor Name Role Phone Nicanor Thomas MD Primary Care Provider Natacha Meade [facility] Unavailable [phone] Natacha Meade [facility] Unavailable [phone] Yemi Bacon MD Unavailable Encounter Details Date Type Department Care Team (Late st Contact Info) Description 11/17/2023 [facility] Adv[facility] Neurology Clinic [address] [place] [address] Yemi Bacon MD [address] [place] [address] [id number] [place] [address] Social History Tobacco Use Types [...] on file 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 Gender Identity Not on file Sexual Orientation Not on file documented as of this encounter Plan of Treatment Not on file documented as of this encounter Visit Diagnoses Not on filedocumented in this encounter Care Teams Transitional Studies Instructor Relationship Specialty Start Date End Date Nicanor Thomas MD [facility] [address] [place] [address] PCP - General 07/13/05 Natacha Meade [facility] 9 [place], [place] [phone] Pharmacist Pharmacist 11/09/23 02/08/24 Natacha Meade [facility] 9 [place], [place] [id number] Assigned MTM Pharmacist 11/25/23 Yemi Bacon MD 9 [facility] [id number] [place], [place] [id number] Assigned Neuroscience Provider 11/25/23 documented as of this encounter
--- OUTSIDE RECORDS SUMMARY | 2024-09-26 23:03 | XMS_ITS | Encounter Summary ---
Author Organization [place] Address [address] [place] [address]. [place] [address] Care Team Providers Care Lift Mechanic Name Role Phone Nicanor Thomas MD Primary Care Provider Natacha Meade [facility] Unavailable [phone] Natacha Meade [facility] Unavailable [phone] Yemi Bacon MD Unavailable Encounter Details Date Type Department Care Team (Late st Contact Info) Description 11/23/2023 [facility] Medical Advice [facility] Neurology Clinic [address] [place] [address] Yemi Bacon MD [address] [place] [address] [id number] [place] [address] Social History Tobacco Use Types [...] on file 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 Gender Identity Not on file Sexual Orientation Not on file documented as of this encounter Plan of Treatment Not on file documented as of this encounter Visit Diagnoses Not on filedocumented in this encounter Care Teams Lift Mechanic Relationship Specialty Start Date End Date Nicanor Thomas MD [facility] [address] [place] [address] PCP - General 07/13/05 Natacha Meade [facility] 9 [place], [place] [address] Pharmacist Pharmacist 11/09/23 02/08/24 Natacha Meade [facility] 9 [place], [place] [phone] Assigned MTM Pharmacist 11/25/23 Yemi Bacon MD 9 [facility] [id number] [place], [place] [id number] Assigned Neuroscience Provider 11/25/23 documented as of this encounter
--- OUTSIDE RECORDS SUMMARY | 2024-09-26 23:03 | XMS_ITS | Encounter Summary ---
Author Organization [facility] Address [address] [place] [address]. [place] [address] Care Team Providers Care Lunchroom Food Service Supervisor Name Role Phone Nicanor Thomas MD Primary Care Provider Natacha Meade [facility] Unavailable [phone] Natacha Meade [facility] Unavailable [phone] Yemi Bacon MD Unavailable Encounter Details Date Type Department Care Team (Late st Contact Info) Description 11/11/2023 [facility] Medical Advice [facility] Neurology Clinic [address] [place] [address] Yemi Bacon MD [address] [place] [address] [id number] [place] [address] Social History Tobacco Use Types [...] on file 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 Gender Identity Not on file Sexual Orientation Not on file documented as of this encounter Plan of Treatment Not on file documented as of this encounter Visit Diagnoses Not on filedocumented in this encounter Care Teams Lunchroom Food Service Supervisor Relationship Specialty Start Date End Date Nicanor Thomas MD [facility] [address] [place] [address] PCP - General 07/13/05 Natacha Meade [facility] 9 [place], [place] [address] Pharmacist Pharmacist 11/09/23 02/08/24 Natacha Meade [facility] 9 [place], [place] [phone] Assigned MTM Pharmacist 11/25/23 Yemi Bacon MD 9 [facility] [id number] [place], [place] [id number] Assigned Neuroscience Provider 11/25/23 documented as of this encounter
--- OUTSIDE RECORDS SUMMARY | 2024-09-26 23:03 | XMS_ITS | Encounter Summary ---
Author Organization [facility] Address [address] [place] [address]. [place] [address] Care Team Providers Care Sand Slinger Operator Name Role Phone Nicanor Thomas MD Primary Care Provider Natacha Meade [facility] Unavailable [phone] Natacha Meade [facility] Unavailable [phone] Yemi Bacon MD Unavailable Encounter Details Date Type Department Care Team (Late st Contact Info) Description 12/29/2023 [facility] Medical Advice [facility] Neurology Clinic [address] [place] [address] Yemi Bacon MD [address] [place] [address] [id number] [place] [address] Social History Tobacco Use Types [...] on file Legal Sex Female 3:[address]ENTIST Gender Identity Not on file Sexual Orientation Not on file documented as of this encounter Plan of Treatment Not on file documented as of this encounter Visit Diagnoses Not on filedocumented in this encounter Care Teams Sand Slinger Operator Relationship Specialty Start Date End Date Nicanor Thomas MD [facility] [address] [place] [address] PCP - General 07/13/05 Natacha Meade [facility] 9 [place], [place] [address] Pharmacist Pharmacist 11/09/23 02/08/24 Natacha Meade [facility] 9 [place], [place] [phone] Assigned MTM Pharmacist 11/25/23 Yemi Bacon MD 9 [facility] [id number] [place], [place] [id number] Assigned Neuroscience Provider 11/25/23 documented as of this encounter
--- OUTSIDE RECORDS SUMMARY | 2024-09-26 23:03 | XMS_ITS | Encounter Summary ---
Author Organization [place] Address [address] [place] [address]. [place] [address] Care Team Providers Care Salvage Clerk Name Role Phone Nicanor Thomas MD Primary Care Provider Natacha Meade [facility] Unavailable [phone] Natacha Meade [facility] Unavailable [phone] Yemi Bacon MD Unavailable Encounter Details Date Type Department Care Team (Late st Contact Info) Description 12/13/2023 [facility] [address] [address] Katerina Cervantes, HIDE AND SKIN CLASSER [address] [place] [address] Social History Tobacco Use Types Packs/Day [...] on file 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 Gender Identity Not on file Sexual Orientation Not on file documented as of this encounter Plan of Treatment Not on file documented as of this encounter Visit Diagnoses Not on filedocumented in this encounter Care Teams Salvage Clerk Relationship Specialty Start Date End Date Nicanor Thomas MD [facility] [address] [place] [address] PCP - General 07/13/05 Natacha Meade [facility] 9 [place], [place] [address] Pharmacist Pharmacist 11/09/23 02/08/24 Natacha Meade [facility] 9 [place], [place] [phone] Assigned MTM Pharmacist 11/25/23 Yemi Bacon MD 9 [facility] [id number] [place], [place] [id number] Assigned Neuroscience Provider 11/25/23 documented as of this encounter
--- OUTSIDE RECORDS SUMMARY | 2024-09-26 23:03 | XMS_ITS | Encounter Summary ---
Author Organization [place] Address [address] [place] [address]. [place] [address] Care Team Providers Care Band Log Mill And Carriage Operator Name Role Phone Nicanor Thomas MD Primary Care Provider Natacha Meade [facility] Unavailable [phone] Natacha Meade [facility] Unavailable [phone] Yemi Bacon MD Unavailable Encounter Details Date Type Department Care Team (Late st Contact Info) Description 11/25/2023 [facility] [place] Advice [facility] [address] [address] Natacha Meade, [address] [address] Social History Tobacco Use Types [...] on file 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[employer] Gender Identity Not on file Sexual Orientation Not on file documented as of this encounter Plan of Treatment Not on file documented as of this encounter Visit Diagnoses Not on filedocumented in this encounter Care Teams Band Log Mill And Carriage Operator Relationship Specialty Start Date End Date Nicanor Thomas MD [facility] [address] [place] [address] PCP - General 07/13/05 Natacha Meade [facility] 909 [place] [address] Pharmacist Pharmacist 11/09/23 02/08/24 Natacha Meade [facility] 909 [place], [place] [address] Assigned MTM Pharmacist 11/25/23 Yemi Bacon MD 9 [facility] [id number] [place], [place] [phone] Assigned Neuroscience Provider 11/25/23 documented as of this encounter
--- OUTSIDE RECORDS SUMMARY | 2024-09-26 23:03 | XMS_ITS | Encounter Summary ---
Author Organization [place] Address [address] [place] [address]. 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 Gender Identity Not on file Sexual Orientation Not on file documented as of this encounter Plan of Treatment Not on file documented as of this encounter Visit Diagnoses Not on filedocumented in this encounter Care Teams Inspector Packager Relationship Specialty Start Date End Date Nicanor Thomas MD [facility] [address] [place] [address] PCP - General 07/13/05 Natacha Meade [facility] 9 [place] [address] Pharmacist Pharmacist 11/09/23 02/08/24 Natcaha Meade [facility] [address] [place] [address] Assigned MTM Pharmacist 11/25/23 Yemi Bacon MD [address] [place] [address] [id number] [place] [address] Assigned Neuroscience Provider 11/25/23 documented as of this encounter
--- OUTSIDE RECORDS SUMMARY | 2024-09-26 23:03 | XMS_ITS | Encounter Summary ---
Author Organization [facility] Address [address] [place] [address]. [place] [address] Care Team Providers Care C.O.D. Clerk Name Role Phone Nicanor Thomas MD Primary Care Provider Natacha Meade [facility] Unavailable [phone] Natacha Meade [facility] Unavailable [phone] Yemi Bacon MD Unavailable Encounter Details Date Type Department Care Team (Late st Contact Info) Description 12/26/2023 [facility] [place] [facility] Neurology Clinic [address] [place] [address] Yemi Bacon MD [address] [place] [address] [id number] [place] [address] Social History Tobacco Use Types [...] on file 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 Clerk Relationship Specialty Start Date End Date Nicanor Thomas MD [facility] [address] [place] [address] PCP - General 07/13/05 Natacha Meade [facility] 9 [place], [place] [address] Pharmacist Pharmacist 11/09/23 02/08/24 Natacha Meade [facility] 9 [place], [place] [phone] Assigned MTM Pharmacist 11/25/23 Yemi Bacon MD 9 [facility] [id number] [place], [place] [id number] Assigned Neuroscience Provider 11/25/23 documented as of this encounter
--- OUTSIDE RECORDS SUMMARY | 2024-09-26 23:03 | XMS_ITS | Clinical Summary ---
Author Organization [facility] Address [address] [place] [id number] Care Team Providers Care Transport Tech Name Role Phone Unavailable Primary Care Provider Unavailabl e Source Comments Patient records contain information from all sites at [facility]. For routine questions regarding patient records, call [phone] during business hours, M-F 8:00 AM - 5:00 PM Central Time. Record requests for emergency care only can be directed to [phone] at any time.[facility] Allergies Active Allergy Reactions Criticality Noted Date Comments Penicillin V Rash Low 01/27/2022 Penicillins Rash High 06/18/2013 Medications * This document contains information received from the source organization and may not represent a complete record from that organization. levothyroxine (SYNTHROID, LEVOTHROID) 50 mcg tablet Take 1 tablet by mouth daily. Active riluzole (Rilutek) 50 mg tablet Take 1 tablet (50 mg total) by mouth 2 (two) times a day. Indication: ALS 60 tablet 11 Active Additional Information Patient not taking.Reported on 04/10/2024 pravastatin (PravachoL) 10 mg tablet Take 10 mg by mouth daily. Active maraviroc (Selzentry) 300 mg tablet Take 300 mg by mouth 2 (two) times a day. Starting at once daily Active IODINE ORAL Take by mouth. Act starr multivitamin tablet Take 1 tablet by mouth daily. Active ASHWAGANDHA EXTRACT ORAL Take by mouth. Ac tive theanine 200 mg capsule Take 200 mg by mouth 2 (two) times a day. Active cyanocobalamin (vitamin B-12) 100 mcg tablet Take 2,500 mcg by mouth daily. Active riluzole (Rilutek) 50 mg tablet Take 1 tablet (50 mg total) by mouth 2 (two) times a day. 60 tablet 11 4 01/26/20 Active dextromethorpha n-quiNIDine (Nuedexta) 20-10 mg per capsule Take 1 capsule by mouth daily. 90 capsule 3 4 01/26/20 25 Active edaravone (Radicava ORS) 105 mg/5 mL suspension Take 5 mL (105 mg total) by mouth daily before morning meal. Take for 10 days out of a 14-day period followed by a 14-day drug free period. 50 mL 11 Active maraviroc (Selzentry) 300 mg tablet Active levothyroxine 50 mcg tablet Take 50 mcg by mouth daily. 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 Date Type Department Care Team Description 08/01/2024 Orders Only Department of Neurology in [place], [place] [address] [place] [address] Yasir son, Eva Pyle M.D. 07/17/2024 11:10 AM CDT - 07/17/2024 11:59 PM CDT Hospital Encounter Department of Laboratory Medicine and Pathology, [facility] in [place], [place] [address] [place] [address] Staff, Lizandro Buck M.D., Ph.D. Sclerosis Lateral Amyotrophic (HCC) Discharge Disposition: Home or Self Care 07/17/2024 7:30 AM CDT Multidisciplinary Visit Department of Neurology in [place], [place] [address] [place] [address] Elizabeth Willard Jr., M.D. Dysphagia Oropharyngeal Phase [R13.12] (Primary Dx); Sclerosis Lateral Amyotrophic (HCC) 07/16/2024 10:00 AM CDT Diagnostic Division of Pulmonary Medicine in [place], [place] [address] [place] [address] Elizabeth Willard Jr., M.D. Sclerosis Lateral Amyotrophic (HCC) 06/27/2024 Orders Only Department of Neurology in [place], [place] [address] [place] [address] Devon Walker Sclerosis Lateral Amyotrophic (HCC) (Primary Dx) from Last 3 Months Family History Medical History Relation Name Comments Alcohol abuse Father 1 Adalberto Buellton Hypertension Father 1 Adalberto Taran Parkinson disease Father 1 Adalberto Buellton Alcohol abuse Father 2 Adalberto Buellton Hypertension Father 2 Adalberto Buellton Parkinson disease Father 2 Adalberto Taran Alcohol abuse Mother 1 Iris Buellton Coronary artery disease Mother 1 Iris Buellton Hypertension Mother 1 Iris Taran Alcohol abuse Mother 2 Iris Taran Coronary artery disease Mother 2 Iris Buellton Hypertension Mother 2 Iris Taran Relation Name Status Comments Father 1 Adalberto Taran Alive Father 2 Adalberto Taran Alive Mother 1 Iris Buellton Alive Mother 2 Iris Taran Alive Social History Tobacco Use Types Packs/Day Years Used Date Smoking Tobacco: Never Smokeless Tobacco: Never Tobacco Cessation:Counseling Given: Not Answered Alcohol Use Standard Drinks/Week Comments Yes 3 (1 standard drink = 0.6 oz pur e alcohol) [facility] Utilities Answer Date Recorded In the past 12 months has e electric, gas, oil, or water [employer] threatened to shut off services in your home? No 10/22/2023 Hunger Vital Sign Answer Date Recorded [...] things needed for daily living? No 10/22/2023 Housing Stability Answer Date Recorded What is your living situation today? 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 Oxygen Saturation 98% 10/17/2023 1:0 2 PM CDT Inhaled Oxygen Concentration - - Weight 57.1 kg (125 lb 14.1 oz) 07/17/2024 2:16 PM CDT Height 168.1 cm (5' 6.18) 10/17/2023 1 :02 PM CDT Body Mass Index 20.21 10/17/2023 1:02 PM CDT Plan of Treatment Upcoming Encounters Date Type Department Care Team (Latest Contact Info) Description 10/09/2024 7:30 AM CDT Multidisciplinary Visit Department of Neurology in [place], [place] [address] [place] [address] Elizabeth Willard Jr., M.D. [address] [place] [phone] 10/09/2024 12:10 PM CDT Appointment Department of Laboratory Medicine and Pathology, [facility], in [place], [place] [address] [place] [address] Staff, Lizandro Buck M.D., Ph.D. [address] [place] [phone] Health Maintenance Due Date Last Done Comments CT Colonography 1964 Cologuard 1964 Colonoscopy 1964 Colorectal Cancer Screening 1964 FIT 1964 Fasting Glucose for Diabetes Screening 1964 HIV Screening 1964 Hepatitis C Screening 1964 Lipid (Cholesterol) Screening 1964 Mammogram 1964 Pneumococcal vaccine (50+ years) (1 of 1 - PCV) 2014 COVID-19 Vaccine ( - season) 2023 03/03/2023, 05/14/2022, 02/08/2021, Additional history exists Influenza Vaccine (#1) 2024 , 01/22/2020, 01/11/2019, Additional history exists RSV vaccine - (32-36 weeks) or 60+ years (1 - Risk 60-74 years 1-dose series) 2024 Depression Screening (Annual PHQ-2) 04/04/2024 Thyroid Stimulating Hormone (TSH) test for thyroid function 10/16/2024 10/17/2023 DTaP,Tdap,and Td Vaccines (2 - Td or Tdap) 12/21/2027 12/20/2017 Zoster Vaccines Completed 08/01/2023, 01/06/2023 Hepatitis B Vaccines Aged Out No long er eligible based on patient's age to complete this topic IPV Vaccines Aged Out No longer eligi ble based on patient's age to complete this topic Medical Devices Implanted Type Area Therapy Manager Device Identifier Shelf Expiration Date Model / Serial / Lot Shoulder Implant Shoulder Implant Shoulder Description:Right shoulder p ins and screws Wrist Implant Wrist Implant Wrist Description:Left wrist screw s placed Procedures Procedure Name Priority Date/Time Associated Diagnosis Comments [facility] ORDER, B Routine 07/17/2024 11:39 AM CDT Sclerosis Lateral Amyotrophic (HCC) [facility] ORDER, B Routine 07/17/2024 11:39 AM CDT Sclerosis Lateral Amyotrophic (HCC) PUL HOME OVERNIGHT OXIMETRY Routine 07/13/2024 Sclerosis Lateral Amyotrophic (HCC) THYROID FUNCTION CASCADE, S Routine 10/17/2023 2:43 PM CDT Other Motor Neuron Disease (HCC) from Last 3 Months or Most Recently Relevant to Health Maintenance Results * [facility], Blood (07/17/2024 11:39 AM CDT) Only the most recent of2 resultswithin the time period is included. Number of Specimens 4 07/17/2024 11:39 AM CDT HSS Blood (Blood, Venous) 07/17/2024 11:39 AM CDT 07/17/2024 11:39 AM CDT Lizandro Aburto M.D., Ph.D. LAB RESEARCH NO RESUL T ROUTING Final Result Performing Organization Address [facility] de Phone Number [facility] [address] [place] [address], [facility] [address] [place] [address] * Home Overnight Oximetry (07/13/2024) 07/13/2024 Impressions [facility] - 07/17/2024 4:18 PM CDT Normal study. Physician: Calvin Del Rosario M.D., [id number] Narrative Procedure Note Calvin Del Rosario M.D., M.P.H. - 07/17/2024 IMPRESSION: Normal study. Physician: Calvin Del Rosario M.D., [id number] Elizabeth Willard Jr., M.D. PFT ORDERABLES Final Re sult Performing Organization Address [facility] de Phone Number [facility] * (ABNORMAL) Thyroid Function [place] (10/17/2023 2:43 PM CDT) TSH, Sensitive 10.3(H) 0.3 - 4.2 mIU/L 10/17/2023 3:35 PM CDT [facility] Blood (Blood, Venous) 10/17/2023 2:43 PM CDT 10/17/2023 2:49 PM CDT Lizandro López M.D. LAB BLOOD ADD-ON Final Resul t [facility] [address] [place] [address], [facility] in [place] [address] [place] [phone] from Last 3 Months or Most Recently Relevant to Health Maintenance Insurance MEDICARE [facility]
--- OUTSIDE RECORDS SUMMARY | 2024-09-26 23:03 | XMS_ITS | Encounter Summary ---
Author Organization [facility] Address [address] [place] [address]. [place] [address] Care Team Providers Care Fish Net Stringer Name Role Phone Nicanor Thomas MD Primary Care Provider Natacha eMade [facility] Unavailable [phone] Natacha Meade [facility] Unavailable [phone] Yemi Bacon MD Unavailable Encounter Details Date Type Department Care Team (Late st Contact Info) Description 11/23/2023 [facility] Medical Advice [facility] [address] [place] [address] Yemi Bacon MD [address] [place] [address] [id number] [place] [address] Social History Tobacco Use Types [...] on file 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 Gender Identity Not on file Sexual Orientation Not on file documented as of this encounter Plan of Treatment Not on file documented as of this encounter Visit Diagnoses Not on filedocumented in this encounter Care Teams Fish Net Stringer Relationship Specialty Start Date End Date Nicanor Thomas MD [facility] [address] [place] [address] PCP - General 07/13/05 Natacha Meade [facility] [address] [place], [place] [address] Pharmacist Pharmacist 11/09/23 02/08/24 Natacha Meade [facility] [address] [place], [place] [id number] Assigned MTM Pharmacist 11/25/23 Yemi Bacon MD [address] [facility] [id number] [place], [place] [id number] Assigned Neuroscience Provider 11/25/23 documented as of this encounter
--- OUTSIDE RECORDS SUMMARY | 2024-09-26 23:03 | XMS_ITS | Encounter Summary ---
Author Organization [facility] Address [address] [place] [address]. [place] [address] Care Team Providers Care Proposal Writer Name Role Phone Nicanor Thomas MD Primary Care Provider Natacha Meade [facility] Unavailable [phone] Natacha Meade [facility] Unavailable [phone] Yemi Bacon MD Unavailable Encounter Details Date Type Department Care Team (Late st Contact Info) Description 11/23/2023 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 Gender Identity Not on file Sexual Orientation Not on file documented as of this encounter Plan of Treatment Not on file documented as of this encounter Visit Diagnoses Not on filedocumented in this encounter Care Teams Proposal Writer Relationship Specialty Start Date End Date Nicanor Thomas MD [facility] [address] [place] [address] PCP - General 07/13/05 Natacha Meade [facility] [address] [place], [place] [address] Pharmacist Pharmacist 11/09/23 02/08/24 Natacha Meade [facility] [address] [place], [place] [phone] Assigned MTM Pharmacist 11/25/23 Yemi Bacon MD 9 [facility] [id number] [place], [place] [phone] Assigned Neuroscience Provider 11/25/23 documented as of this encounter
[2024-09-26 23:10] VITALS: BP 135/84; PULSE 94; RESP 20; TEMP 36.6; O2SAT 89; BMI 18.2
--- NOTE | 2024-09-27 | ED.NURSE ---
RN went into patient room to attempt to carry out orders MD placed; X-ray, Continuous pulse oximetry and COVID swab. Patients spoke on her behalf and declined the tests (X-ray and COVID swab) that were offered at this time. Advised MD of this and that patients was becoming angry. RN made contact with patient when they pressed the call light in the room. Patients was very irritated at this time wondering where the Dr. was. Advised that there are other patients here as well. This RN asked the what their goal of care was at this time and he stated that the Dr was going to get his fucking ass chewed. Patient seated comfortably on the bed, SpO2 @ 90%, patient and had refused supplemental oxygen at this time. A short while later, patients opened the door to the exam room and was standing and staring into the nurses station, at this time I notified Michael (foam charger) about the husbands off putting and aggressive behavior. Security was notified at this time and responded to the ER for standby.
--- NOTE | 2024-09-27 00:01 | ED.GENADULT ---
HPI - General Adult General Date Seen: 09/27/24 Chief complaint: Shortness of Breath/Dyspnea Stated complaint: has ALS, cough, dehydrated Time Seen by Provider: 09/27/24 00:01 Source: patient and family Mode of arrival: ambulatory Limitations: physical limitation History of Present Illness HPI narrative: Patient is a 59-year-old female with a two year history of ALS. She was in her usual state of health until yesterday when she developed a sore throat and a headache. She was seen in urgent care today and had a negative chest x-ray and a normal strep test. She was told to follow-up if her symptoms worsened and her headache has gotten worse despite ibuprofen. She is struggling to eat and drink more so than usual. Her cough and sore throat have been so severe that she has not been able to sleep for the last two nights. She is accompanied by her . She has difficulty speaking but does answer to yes and no questions. He does the rest of the answering for her. She sees an ALS team at [facility] every quarter. Local physician is Donnie. No fevers or chills. No nausea, vomiting. No significant runny nose. She acknowledges that her cough is exhausting and she is not able to bring anything up. Related Data Home Medications ?Medication ?Instructions ?Recorded ?Confirmed edaravone 105 mg/5 mL oral 105 mg PO 08/13/24 09/26/24 suspension (Radicava ORS) riluzole 50 mg tablet 50 mg PO BID 08/13/24 09/26/24 alprazolam 0.5 mg tablet 0.5 mg PO 3XD PRN anxiety 09/26/24 09/26/24 dextromethorphan 20 mg-quinidine 1 cap PO DAILY 09/26/24 09/26/24 10 mg capsule (Nuedexta) Previous Rx's ?Medication ?Instructions ?Recorded levothyroxine 50 mcg tablet 50 mcg PO DAILY #90 tabs 08/14/24 oxycodone 5 mg/5 mL oral solution 5 mg (5 mL) PO Q4-6H PRN pain #30 09/27/24 mL Allergies Allergy/AdvReac Type Severity Reaction Status Date / Time penicillin V Allergy Mild Rash Verified 09/26/24 12:15 Review of Systems Narrative: Review of systems is positive for all of her ALS symptoms which include difficulty swallowing, weak cough, inability to speak. Review of systems is as outlined above otherwise noted to be negative. [facility] Medical History (Updated 09/27/24 @ 02:58 by Yemi Dominguez MD) Hypothyroidism ?E03.9 - Hypothyroidism, unspecified (ICD-10) Anxiety ?F41.9 - Anxiety disorder, unspecified (ICD-10) ALS (amyotrophic lateral sclerosis) ?G12.21 - Amyotrophic lateral sclerosis (ICD-10) Thyroid mass ?E07.9 - Disorder of thyroid, unspecified (ICD-10) Retinal tear of left eye ?H33.312 - Horseshoe tear of retina without detachment, left eye (ICD-10) Endometrial carcinoma ?C54.1 - Malignant neoplasm of endometrium (ICD-10) Surgical History History of fine needle aspiration with imaging guidance ?Z98.890 - Other specified postprocedural states (ICD-10) S/P ORIF (open reduction internal fixation) fracture (03/30/22) ?Z98.890 - Other specified postprocedural states (ICD-10) ?Z87.81 - Personal history of (healed) traumatic fracture (ICD-10) Status post right rotator cuff repair (01/24/09) ?Z98.890 - Other specified postprocedural states (ICD-10) History of hysterectomy with bilateral oophorectomy ?Z90.710 - Acquired absence of both cervix and uterus (ICD-10) ?Z90.722 - Acquired absence of ovaries, bilateral (ICD-10) Family History Other Abdominal aortic aneurysm (AAA) Colonic polyp Coronary artery disease Thyroid disease Social History (Updated 09/27/24 @ 02:58 by Yemi Dominguez MD) 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: , 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, 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 What is your current living situation?: I presently have a place to live Problems where you live: no known problems In the past 12 months, utilities in danger of being shut off: no In past 12 months, lack of transportation kept you from medical appts, meetings, work, or getting things needed for daily living: no In the past 12 mos, have been you worried that your food would run out before you had money to buy more?: never true In the past 12 mos, the food you bought just didn't last and you didn't have money to buy more?: never true Smoking Status: Never smoker Do you use any of these nicotine containing products: None Second hand tobacco smoke exposure: No How often do you have a drink containing alcohol: never How many standard drinks containing alcohol do you have on a typical day: 1 or 2 How often do you have six or more drinks on one occasion: Never AUDIT-C Alcohol total score: 0 Non-prescribed substance use: denies use Caffeine: Yes (2 cups daily) How often does anyone, including family, friends and others, physically hurt you: never How often does anyone, including family, friends and others, insult or talk down to you: never How often does anyone, including family, friends and others, threaten you with harm: never How often does anyone, including family, friends and others, scream or curse at you: never Are you using contraception or practicing any form of control: No Exam Narrative: Exam Narrative: Vitals noted. HEENT: Conjunctiva clear. Tympanic membranes are pearly white bilaterally. Posterior pharynx is erythematous without exudate. Neck is supple without adenopathy, thyromegaly, carotid bruit. Lungs: Clear to auscultation in all bailey. No wheezes, rales, rhonchi. Heart: Regular rate and rhythm without murmur. Abdomen: Soft and nontender. No guarding, rigidity, rebound. Bowel sounds are normal. No palpable masses. Extremities: No cyanosis or edema. Good distal pulses. Skin: No abnormalities noted of the exposed skin. Neurologic: She has a very weak cough in some difficulty coordinating her swallow. No aspiration. Const: Vital Signs, click to edit/add: Vital Signs - 24 hr 09/26/24 23:10 09/27/24 00:31 09/27/24 00:44 Temperature 98 F Pulse Rate [Pulse Oximeter] 94 Respiratory Rate 20 Blood Pressure [Ri ght Upper Arm] 135/84 Pulse Oximetry 89 87 L 84 L Oxygen Delivery Me thod Room Air Nasal Cannula Oxygen Flow Rate 2.5 09/27/24 00:45 09/27/24 01:14 Temperature Pulse Rate [Pulse Oximeter] Respiratory Rate Blood Pressure [Ri ght Upper Arm] Pulse Oximetry 84 L 90 Oxygen Delivery Me thod Room Air Room Air Oxygen Flow Rate 2 Course Course ED Course: Patient was seen and examined. IV is established and she is given a L of normal saline. Fentanyl 25 mcg IV is given with some relief of her pain. Reevaluation(s) Reevaluation #1: CBC, BMP, lactate are all normal. Chest x-ray from earlier today is reviewed and is negative. A 2nd dose of fentanyl 25 mcg IV is given. Reevaluation #2: Patient is feeling better and is ready for discharge. She did rest for a while after receiving the fentanyl. Oxygen saturation varied from the upper 80s to low 90s. She has a card from her neurologist stating not use oxygen and her sats may be low based on her ALS. Vital Signs Vital signs: Initial Vital Signs Temperature 98 F 09/26/24 23:10 Temperature Source Temporal Artery Scan 09/26/24 23:10 Pulse Rate 94 09/26/24 23:10 Respiratory Rate 20 09/26/24 23:10 Blood Pressure 135/84 09/26/24 23:10 Blood Pressure Mean 101 09/26/24 23:10 Blood Pressure Position Sitting 09/26/24 23:10 Pulse Oximetry 89 09/26/24 23:10 Oxygen Delivery Method Room Air 09/26/24 23:10 Vital Signs Temperature 98 F 09/26/24 23:10 Pulse Rate 94 09/26/24 23:10 Respiratory Rate 20 09/26/24 23:10 Blood Pressure 135/84 09/26/24 23:10 Pulse Oximetry 89 09/26/24 23:10 Oxygen Delivery Method Room Air 09/26/24 23:10 Temperature 98 F 09/26/24 23:10 Pulse Rate 94 09/26/24 23:10 Respiratory Rate 20 09/26/24 23:10 Blood Pressure 135/84 09/26/24 23:10 Pulse Oximetry 90 09/27/24 01:14 Oxygen Delivery Method Room Air 09/27/24 01:14 Oxygen Flow Rate 2 09/27/24 00:45 Medications Administered Medications: Discontinued Medications Generic Name Dose Route Start Last Admin Trade Name Freq PRN Reason Stop Dose Admin Fentanyl 25 mcg 09/27/24 00:19 09/27/24 00:31 Fentanyl 100 Mcg/2 Ml Inj IVP 09/27/24 00:20 25 mcg ONCE ONE Administration Fentanyl 25 mcg 09/27/24 01:15 09/27/24 01:24 Fentanyl 100 Mcg/2 Ml Inj IVP 09/27/24 01:16 25 mcg ONCE ONE Administration Sodium Chloride 1,000 mls @ 1,000 mls/hr 09/27/24 00:20 09/27/24 01:19 0.9 % Sodium Chloride 1000 Ml IV 09/27/24 01:19 Infused .Q1H WILLIAN Infusion Oxycodone HCl 5 mg 09/27/24 01:12 09/27/24 01:26 Oxycodone 1 Mg/Ml Oral Soln PO 5 mg Q4H PRN Administration Pain Oxycodone HCl 5 mg 09/27/24 01:28 09/27/24 01:32 Oxycodone 1 Mg/Ml Oral Soln PO 5 mg Q4H PRN Administration Oxycodone HCl 5 mg 09/27/24 01:29 09/27/24 01:33 Oxycodone 1 Mg/Ml Oral Soln PO 5 mg Q4H PRN Administration Oxycodone HCl 5 mg 09/27/24 01:30 09/27/24 01:33 Oxycodone 1 Mg/Ml Oral Soln PO 5 mg Q4H PRN Administration Medical Decision Making Lab Data Labs: Lab Results 09/27/24 Range/Units 00:19 WBC 7.14 (4.50-11.00) K/uL RBC 4.70 (4.00-5.20) m/uL Hgb 13.9 (12.0-16.0) gm/dL Hct 42.4 (33.0-51.0) % MCV 90 (80-100) fL MCH 30 (26-34) pg MCHC 33 (32-36) gm/dL RDW Coeff of Lima 12.5 (11.5-15.5) % Plt Count 292 (140-440) K/uL Neut % (Auto) 75.9 H (42.0-72.0) % Lymph % (Auto) 4.3 L (20-44) % Mingo % (Auto) 9.9 (0.0-11.0) % Eos % (Auto) 8.4 H (0.0-7.0) % Baso % (Auto) 0.4 (0.0-3.0) % Neut # (Auto) 5.40 (1.7-7.0) K/uL Lymph # (Auto) 0.30 L (0.90-2.90) K/uL Mingo # (Auto) 0.70 (0.00-0.90) K/UL Eos # (Auto) 0.60 H (0.00-0.50) K/uL Baso # (Auto) 0.03 (0.00-0.30) K/uL Abs Immat Gran (auto) 0.08 (0.00-0.30) K/uL Imm/Tot Granulo (auto) 1.1 % Sodium 141 (135-149) mmol/L Potassium 3.8 (3.6-5.1) mmol/L Chloride 101 (96-114) mmol/L Carbon Dioxide 30 (20-32) mmol/L Anion Gap 10 (7-15) mEq/L BUN 17 (7-30) mg/dL Creatinine 0.8 (0.5-1.5) mg/dL Estimated Creat Clear 60.51 Estimated GFR 84 ml/min Glucose 129 H (60-115) mg/dL Lactate 1.0 (0.5-1.9) mmol/L Calcium 10.2 (8.4-10.6) mg/dL Discharge Plan Discharge Clinical Impression: ALS (amyotrophic lateral sclerosis), Viral URI with cough Patient Disposition: Home w/ Parent or Adult Condition: Improved Additional Instructions: Push fluids, deep breathing, cough to clear airway. Tylenol or Ibuprofen for mild pain. Oxycodone 5 mg every 4 hours as needed for severe pain. Return to ER for SOB, refractory pain. Follow up in the clinic if no better in the next 3 days. Prescriptions: New oxycodone 5 mg/5 mL solution 5 mg PO Q4-6H PRN (Reason: pain) Qty: 30 0RF No Action Nuedexta 20-10 mg capsule 1 cap PO DAILY Radicava ORS 105 mg/5 mL suspension 105 mg PO Patient Comments: [NO ORIGINAL SIG] riluzole 50 mg tablet 50 mg PO BID alprazolam 0.5 mg tablet 0.5 mg PO 3XD PRN (Reason: anxiety) levothyroxine 50 mcg tablet 50 mcg PO DAILY Qty: 90 3RF Follow Up/Referrals: Jl Fields, PAKaitlinC [Primary Care Provider, Family Practice] Stand Alone Forms: MyHealth Info Instructions
[2024-09-27 00:28] LABS: Basophils Absolute Auto 0.03 K/uL (0.00-0.30); Basophils Percent Auto 0.4 % (0.0-3.0); Eosinophils Percent Auto 8.4 % (0.0-7.0); Hematocrit 42.4 % (33.0-51.0); Hemoglobin* 13.9 gm/dL (12.0-16.0); Immature Granulocytes Abs Auto 0.08 K/uL (0.00-0.30); Immature Granulocytes Pct Auto 1.1 %; Lymphocytes Percent Auto 4.3 % (20-44); Mean Corpuscular HGB Conc 33 gm/dL (32-36); Mean Corpuscular Hemoglobin 30 pg (26-34); Mean Corpuscular Volume 90 fL (80-100); Monocytes Percent Auto 9.9 % (0.0-11.0); Neutrophils Percent Auto 75.9 % (42.0-72.0); Platelet Count* 292 K/uL (140-440); RDW Coefficient of Variation % 12.5 % (11.5-15.5); White Blood Count* 7.14 K/uL (4.50-11.00)
[2024-09-27 00:31] VITALS: O2SAT 87
[2024-09-27 00:31] LABS: Slide Review Reflex No
[2024-09-27] MEDS: fentaNYL 100 MCG/2 ML inj 25 MCG IVP ×2 (00:31→01:24)
[2024-09-27] MEDS: 0.9 % SODIUM CHLORIDE 1000 ml 1,000 ML IV (00:31)
--- OUTSIDE RECORDS SUMMARY | 2024-09-27 00:38 | XMS_ITS | Encounter Summary ---
Author Organization [place] Address [address] [place] [address]. [place] [address] Care Team Providers Care Bias Binding Folder Name Role Phone Nicanor Thomas MD Primary Care Provider Natacha Meade [facility] Unavailable [phone] Natacha Meade [facility] Unavailable [phone] Yemi Bacon MD Unavailable Encounter Details Date Type Department Care Team (Late st Contact Info) Description 11/23/2023 [facility] Medical Advice [facility] [address] [place] [address] Yemi Bacon MD [address] [place] [address] [id number] [place] [address] Social History Tobacco Use Types [...] on file Legal 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 Gender Identity Not on file Sexual Orientation Not on file documented as of this encounter Plan of Treatment Not on file documented as of this encounter Visit Diagnoses Not on filedocumented in this encounter Care Teams Bias Binding Folder Relationship Specialty Start Date End Date Nicanor Thomas MD [facility] [address] [place] [address] PCP - General 07/13/05 Natacha Meade [facility] [address] [place], [place] [id number] Pharmacist Pharmacist 11/09/23 02/08/24 Natacha Meade [facility] [address] [place], [place] [id number] Assigned MTM Pharmacist 11/25/23 Yemi Bacon MD 9 [facility] [id number] [place], [place] [id number] Assigned Neuroscience Provider 11/25/23 documented as of this encounter
--- OUTSIDE RECORDS SUMMARY | 2024-09-27 00:38 | XMS_ITS | Encounter Summary ---
Author Organization [place] Address [address] [place] [address]. [place] [address] Care Team Providers Care Dance Professor Name Role Phone Nicanor Thomas MD Primary Care Provider Natacha Meade [facility] Unavailable [phone] Natacha Meade [facility] Unavailable [phone] Yemi Bacon MD Unavailable Encounter Details Date Type Department Care Team (Late st Contact Info) Description 12/29/2023 [facility] Medical Advice [facility] Neurology Clinic [address] [place] [address] Yemi Bacon MD [address] [place] [address] [id number] [place] [address] Social History Tobacco Use Types [...] on file 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 Gender Identity Not on file Sexual Orientation Not on file documented as of this encounter Plan of Treatment Not on file documented as of this encounter Visit Diagnoses Not on filedocumented in this encounter Care Teams Dance Professor Relationship Specialty Start Date End Date Nicanor Thomas MD [facility] [address] [place] [address] PCP - General 07/13/05 Natacha Meade [facility] 9 [place], [place] [id number] Pharmacist Pharmacist 11/09/23 02/08/24 Natacha Meade [facility] 9 [place], [place] [id number] Assigned MTM Pharmacist 11/25/23 Yemi Bacon MD 9 [facility] [id number] [place], [place] [id number] Assigned Neuroscience Provider 11/25/23 documented as of this encounter
--- OUTSIDE RECORDS SUMMARY | 2024-09-27 00:38 | XMS_ITS | Encounter Summary ---
Author Organization [place] Address [address] [place] [address]. [place] [address] Care Team Providers Care Smeller Name Role Phone Nicanor Thomas MD Primary Care Provider Natacha Meade [facility] Unavailable [phone] Natacha Meade [facility] Unavailable [phone] Yemi Bacon MD Unavailable Encounter Details Date Type Department Care Team (Late st Contact Info) Description 11/09/2023 [facility] [address] [address] Natacha Meade, [address] [address] Social History Tobacco Use Types [...] on file 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 Gender Identity Not on file Sexual Orientation Not on file documented as of this encounter Plan of Treatment Not on file documented as of this encounter Visit Diagnoses Not on filedocumented in this encounter Care Teams Smeller Relationship Specialty Start Date End Date Nicanor Thomas MD [facility] [address] [place] [address] PCP - General 07/13/05 Natacha Meade [facility] [address] [place] [address] Pharmacist Pharmacist 11/09/23 02/08/24 Natacha Meade [facility] [address] [place], [place] [address] Assigned MTM Pharmacist 11/25/23 Yemi Bacon MD 9 [facility] [id number] [place], [place] [id number] Assigned Neuroscience Provider 11/25/23 documented as of this encounter
--- OUTSIDE RECORDS SUMMARY | 2024-09-27 00:38 | XMS_ITS | Encounter Summary ---
Author Organization [place] Address [address] [place] [address]. [place] [address] Care Team Providers Care Canvas Repairer Name Role Phone Nicanor Thomas MD Primary Care Provider Natacha Meade [facility] Unavailable [phone] Natacha Meade [facility] Unavailable [phone] eYmi Bacon MD Unavailable Encounter Details Date Type Department Care Team (Late st Contact Info) Description 12/13/2023 [facility] Medical Advice [facility] [address] [address] Katerina Cervantes, DISABILITY COORDINATOR [address] [place] [address] Social History Tobacco Use Types Packs/Day [...] on file Legal 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 Gender Identity Not on file Sexual Orientation Not on file documented as of this encounter Plan of Treatment Not on file documented as of this encounter Visit Diagnoses Not on filedocumented in this encounter Care Teams Canvas Repairer Relationship Specialty Start Date End Date Nicanor Thomas MD [facility] [address] [place] [address] PCP - General 07/13/05 Natacha Meade [facility] 9 [place], [place] [phone] Pharmacist Pharmacist 11/09/23 02/08/24 Natacha Meade [facility] 9 [place], [place] [phone] Assigned MTM Pharmacist 11/25/23 Yemi Bacon MD 9 [facility] [id number] [place], [place] [phone] Assigned Neuroscience Provider 11/25/23 documented as of this encounter
--- OUTSIDE RECORDS SUMMARY | 2024-09-27 00:38 | XMS_ITS | Clinical Summary ---
Author Organization [facility] Address [address] [place] [address] Care Team Providers Care Health Analytics Consultant Name Role Phone Unavailable Primary Care Provider Unavailabl e Source Comments Patient records contain information from all sites at [facility]. For routine questions regarding patient records, call [phone] during business hours, M-F 8:00 AM - 5:00 PM Central Time. Record requests for emergency care only can be directed to [phone] at any time.[facility] Allergies Active Allergy Reactions Criticality Noted [...] 08/01/2024 Orders Only Department of Neurology in [place], [place] [address] [place] [address] Yasir son, Eva Pyle M.D. 07/17/2024 11:10 AM CDT - 07/17/2024 11:59 PM CDT Hospital Encounter Department of Laboratory Medicine and Pathology, [facility] in [place], [place] [address] [place] [address] Staff, Lizandro Buck M.D., Ph.D. Sclerosis Lateral Amyotrophic (HCC) Discharge Disposition: Home or Self Care 07/17/2024 7:30 AM CDT Multidisciplinary Visit Department of Neurology in [place], [place] [address] [place] [address] Elizabeth Willard Jr., M.D. Dysphagia Oropharyngeal Phase [R13.12] (Primary Dx); Sclerosis Lateral Amyotrophic (HCC) 07/16/2024 10:00 AM CDT Diagnostic Division of Pulmonary Medicine in [place], [place] [address] [place] [address] Elizabeth Willard Jr., M.D. Sclerosis Lateral Amyotrophic (HCC) 06/27/2024 Orders Only Department of Neurology in [place], [place] [address] [place] [address] Devon Walker Sclerosis Lateral Amyotrophic (HCC) (Primary Dx) from Last 3 Months Family History Medical History Relation Name Comments Alcohol abuse Father 1 Adalberto Billingsley Hypertension Father 1 Adalberto Taran Parkinson disease Father 1 Adalberto [place]ley Alcohol abuse Father 2 Adalberto [place]ley Hypertension Father 2 Adalberto [place]ley Parkinson disease Father 2 Adalberto Taran Alcohol abuse Mother 1 Iris Billingsley Coronary artery disease Mother 1 Iris [place]ley Hypertension Mother 1 Iris Taran Alcohol abuse Mother 2 Iris Taran Coronary artery disease Mother 2 Iris Bill[place]ley Hypertension Mother 2 Iris Taran Relation Name Status Comments Father 1 Adalberto Taran Alive Father 2 Adalberto Taran Alive Mother 1 Iris [place]ley Alive Mother 2 Iris Taran Alive Social History Tobacco Use Types Packs/Day Years Used Date Smoking Tobacco: Never Smokeless Tobacco: Never Tobacco Cessation:Counseling Given: Not Answered Alcohol Use Standard Drinks/Week Comments Yes 3 (1 standard drink = 0.6 oz pur e alcohol) [facility] Utilities Answer Date Recorded In the past 12 months has e electric, gas, oil, or water [employer] threatened to shut off services in your [...] your living situation today? 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 [address] [place] [phone] 10/09/2024 12:10 PM CDT Appointment Department of Laboratory Medicine and Pathology, [facility], in [place], [place] [address] [place] [address] Staff, Lizandro Buck M.D., Ph.D. [address] [place] [phone] Health Maintenance Due Date Last Done Comments [...] this topic Medical Devices Implanted Type Area Cook Dinner Device Identifier Shelf Expiration Date Model / Serial / Lot Shoulder Implant Shoulder Implant Shoulder Description:Right shoulder p ins and screws Wrist Implant Wrist Implant Wrist Description:Left wrist screw s placed Procedures Procedure Name Priority Date/Time Associated Diagnosis Comments [facility] RESEARCH ORDER, B Routine 07/17/2024 11:39 AM CDT Sclerosis Lateral Amyotrophic (HCC) [facility] RESEARCH ORDER, B Routine 07/17/2024 11:39 AM CDT Sclerosis Lateral Amyotrophic (HCC) PUL HOME OVERNIGHT OXIMETRY Routine 07/13/2024 Sclerosis Lateral Amyotrophic (HCC) THYROID FUNCTION CASCADE, S Routine 10/17/2023 2:43 PM CDT Other Motor Neuron Disease (HCC) from Last 3 Months or Most Recently Relevant to Health Maintenance Results * [facility] Research, Blood (07/17/2024 11:39 AM CDT) Only the most recent of2 resultswithin the time period is included. Number of Specimens 4 07/17/2024 11:39 AM CDT HSS Blood (Blood, Venous) 07/17/2024 11:39 AM CDT 07/17/2024 11:39 AM CDT Lizandro Aburto M.D., Ph.D. LAB RESEARCH NO RESUL T ROUTING Final Result Performing Organization Address [facility] de Phone Number [facility] [address] [place] [address], [facility] [address] [place] [address] * Home Overnight Oximetry (07/13/2024) 07/13/2024 Impressions [facility] EA - 07/17/2024 4:18 PM CDT Normal study. Physician: Calvin Del Rosario M.D., [id number] Narrative Procedure Note Calvin Del Rosario M.D., M.P.H. - 07/17/2024 IMPRESSION: Normal study. Physician: Calvin Del Rosario M.D., [id number] Elizabeth Willard Jr., M.D. PFT ORDERABLES Final Re sult Performing Organization Address [facility] de Phone Number [facility] * (ABNORMAL) Thyroid Function Ada (10/17/2023 2:43 PM CDT) TSH, Sensitive 10.3(H) 0.3 - 4.2 mIU/L 10/17/2023 3:35 PM CDT [facility] Blood (Blood, Venous) 10/17/2023 2:43 PM CDT 10/17/2023 2:49 PM CDT Lizandro López M.D. LAB BLOOD ADD-ON Final Resul t [facility] [address] [place] [address], [facility] in [place] [address] [address] from Last 3 Months or Most Recently Relevant to Health Maintenance Insurance MEDICARE [facility]
--- OUTSIDE RECORDS SUMMARY | 2024-09-27 00:38 | XMS_ITS | Encounter Summary ---
Author Organization [place] Address [address] [place] [address]. [place] [address] Care Team Providers Care Foreign Broadcast Specialist Name Role Phone Nicanor Thomas MD Primary Care Provider Natacha Meade [facility] Unavailable [phone] Natacha Meade [facility] Unavailable [phone] Yemi Bacon MD Unavailable Encounter Details Date Type Department Care Team (Late st Contact Info) Description 12/26/2023 [facility] Medical Advice [facility] Neurology Clinic [address] [place] [address] Yemi Bacon MD [address] [place] [address] [id number] [place] [address] Social History Tobacco Use Types [...] on file 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 Gender Identity Not on file Sexual Orientation Not on file documented as of this encounter Plan of Treatment Not on file documented as of this encounter Visit Diagnoses Not on filedocumented in this encounter Care Teams Foreign Broadcast Specialist Relationship Specialty Start Date End Date Nicanor Thomas MD [facility] [address] [place] [address] PCP - General 07/13/05 Natacha Meade [facility] 9 [place], [place] [address] Pharmacist Pharmacist 11/09/23 02/08/24 Natacha Meade [facility] 9 [place], [place] [phone] Assigned MTM Pharmacist 11/25/23 Yemi Bacon MD 9 [facility] [id number] [place], [place] [id number] Assigned Neuroscience Provider 11/25/23 documented as of this encounter
--- OUTSIDE RECORDS SUMMARY | 2024-09-27 00:38 | XMS_ITS | Encounter Summary ---
Author Organization [place] Address [address] [place] [address]. [place] [address] Care Team Providers Care Career Orientation Teacher Name Role Phone Nicanor Thomas MD Primary Care Provider Natacha Meade [facility] Unavailable [phone] Natacha Meade [facility] Unavailable [phone] Yemi Bacon MD Unavailable Encounter Details Date Type Department Care Team (Late st Contact Info) Description 11/25/2023 [facility] Medical Advice 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 Gender Identity Not on file Sexual Orientation Not on file documented as of this encounter Plan of Treatment Not on file documented as of this encounter Visit Diagnoses Not on filedocumented in this encounter Care Teams Career Orientation Teacher Relationship Specialty Start Date End Date Nicanor Thomas MD [facility] [address] [place] [address] PCP - General 07/13/05 Natacha Meade [facility] 909 [place] [address] Pharmacist Pharmacist 11/09/23 02/08/24 Natacha Meade [facility] 909 [place], [place] [address] Assigned MTM Pharmacist 11/25/23 Yemi Bacon MD 9 [facility] [id number] [place], [place] [id number] Assigned Neuroscience Provider 11/25/23 documented as of this encounter
--- OUTSIDE RECORDS SUMMARY | 2024-09-27 00:38 | XMS_ITS | Encounter Summary ---
Author Organization [place] Address [address] [place] [address]. [place] [address] Care Team Providers Care Revenue Research Analyst Name Role Phone Nicanor Thomas MD Primary Care Provider Natacha Meade [facility] Unavailable [phone] Natacha Meade [facility] Unavailable [phone] Yemi Bacon MD Unavailable Encounter Details Date Type Department Care Team (Late st Contact Info) Description 12/06/2023 [facility] Medical Advice [facility] Neurology Clinic [address] [place] [address] Yemi Bacon MD [address] [place] [address] [id number] [place] [address] Social History Tobacco Use Types [...] on file 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 Gender Identity Not on file Sexual Orientation Not on file documented as of this encounter Plan of Treatment Not on file documented as of this encounter Visit Diagnoses Not on filedocumented in this encounter Care Teams Revenue Research Analyst Relationship Specialty Start Date End Date Nicanor Thomas MD [facility] [address] [place] [address] PCP - General 07/13/05 Natacha Meade [facility] 9 [place], [place] [address] Pharmacist Pharmacist 11/09/23 02/08/24 Natacha Meade [facility] 9 [place], [place] [phone] Assigned MTM Pharmacist 11/25/23 Yemi Bacon MD 9 [facility] [id number] [place], [place] [id number] Assigned Neuroscience Provider 11/25/23 documented as of this encounter
--- OUTSIDE RECORDS SUMMARY | 2024-09-27 00:38 | XMS_ITS | Clinical Summary ---
Author Organization [place] Address [address] [place] [address]. 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 LIPID PANEL (08/03/2005 9:11 AM CDT) Cholesterol 147 0 - 200 mg/dL [facility] Comment: LDL Cholesterol is the primary guide to therapy: LDL-cholesterol goal in high risk patients is <100 mg/dL and in very high risk patients is <70 mg/dL. The NCEP recommends further evaluation of: patients with cholesterol <200 mg/dL if additional risk factors are present, cholesterol >240 mg/dL, triglycerides >150 mg/dL, or HDL <40 mg/dL. Triglycerides 73 0 - 150 mg/dL [facility] HDL Cholesterol 45(L) 50 - 110 mg/dL [facility] LDL Cholesterol Calculated 87 0 - 129 mg/dL [facility] Comment: LDL Cholesterol is the primary guide to therapy: LDL-cholesterol goal in high risk patients is <100 mg/dL and in very high risk patients is <70 mg/dL. VLDL-Cholesterol 15 0 - 30 mg/dL [facility] Cholesterol/HDL Ratio 3.2 0.0 - 5.0 [facility] 08/03/2005 9:11 AM CDT 08/03/2005 9:13 AM CDT Nicanor Thomas MD LABORATORY Final R esult Performing Organization Address City/[facility]/ZIP Co de Phone Number [address] [address] * TSH W/FREE T4 REFLEX (07/20/2005 11:40 AM CDT) TSH 3.64 0.4 - 5.0 mU/L [facility] 07/20/2005 11:4 0 AM CDT 07/20/2005 11:42 AM CDT us Nicanor Thomas MD LABORATORY Final R esult [facility] [address] [place] [address] * A THIN LAYER PAP SCREEN (07/20/2005 12:00 AM CDT) PAP [facility] COPATH Copath Report Patient Name: MAGALY HINOJOSA MR#: [id number] Specimen #: [id number] Collected: 07/20/2005 Received: 07/21/2005 Reported: 07/22/2005 08:34 Ordering Phy(s): NICANOR THOMAS SPECIMEN/STAIN PROCESS: Pap thin layer prep screening (Sure[facility]) Pap-Cyto x 1, Reflex HPV x 1 SOURCE: Cervical, endocervical Pap thin layer prep screening ([facility]) SPECIMEN ADEQUACY: Satisfactory for evaluation. -Transformation zone component present. CYTOLOGIC INTERPRETATION: Negative for Intraepithelial Lesion or Malignancy Electronically signed out by: HUBER Finn (ASCP) Processed and screened at [facility] CLINICAL HISTORY: Irregular Bleeding Other: spotting, Previous normal pap Date of Last Pap: 3 Other: history previous abnormal 8 years ago/colpo normal paps since that time), TESTING LAB LOCATION: [address] [address] COLLECTION SITE: Client: [facility] Location: [facility] (R) COPATH 07/20/2005 07/21/2005 10: 18 AM CDT us Nicanor Thomas MD LABORATORY Final R esult COPATH from Last 3 Months or Most Recently Relevant to Health Maintenance Insurance [facility] INDIVIDUAL MEDICARE [facility] INDIVIDUAL MEDICARE * Guarantor: Magaly Hinojosa Account Type Relation to Patient Date of Phone Billing Address Medication Therapy Self [address] [place] [address] [facility] IN[facility]IDUAL Care Teams Tunneling Machine Operator Relationship Specialty Start Date End Date Nicanor Thomas MD [facility] [address], [place] [id number] PCP - General 07/13/05 Natacha Meade [facility] [address] [place] [address] Assigned MTM Pharmacist 11/25/23 Yemi Bacon MD 9 [facility], [place] [address] Assigned Neuroscience Provider 11/25/23
--- OUTSIDE RECORDS SUMMARY | 2024-09-27 00:38 | XMS_ITS | Encounter Summary ---
Author Organization [place] Address [address] [place] [address]. [place] [address] Care Team Providers Care Hot Shot Name Role Phone Nicanor Thomas MD Primary Care Provider Natacha Meade [facility] Unavailable [phone] Natacha Meade [facility] Unavailable [phone] Yemi Bacon MD Unavailable Encounter Details Date Type Department Care Team (Late st Contact Info) Description 12/30/2023 [facility] Medical Advice [facility] Neurology Clinic [address] [place] [address] Yemi Bacon MD [address] [place] [address] [id number] [place] [address] Social History Tobacco Use Types [...] on file 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 Gender Identity Not on file Sexual Orientation Not on file documented as of this encounter Plan of Treatment Not on file documented as of this encounter Visit Diagnoses Not on filedocumented in this encounter Care Teams Hot Shot Relationship Specialty Start Date End Date Nicanor Thomas MD [facility] [address] [place] [address] PCP - General 07/13/05 Natacha Meade [facility] 9 [place], [place] [address] Pharmacist Pharmacist 11/09/23 02/08/24 Natacha Meade [facility] 9 [place], [place] [phone] Assigned MTM Pharmacist 11/25/23 Yemi Bacon MD 9 [facility] [id number] [place], [place] [id number] Assigned Neuroscience Provider 11/25/23 documented as of this encounter
--- OUTSIDE RECORDS SUMMARY | 2024-09-27 00:38 | XMS_ITS | Encounter Summary ---
Author Organization [place] Address [address] [place] [address]. [place] [address] Care Team Providers Care Music Autographer Name Role Phone Nicanor Thomas MD Primary Care Provider Natacha Meade [facility] Unavailable [phone] Natacha Meade [facility] Unavailable [phone] Yemi Bacon MD Unavailable Encounter Details Date Type Department Care Team (Late st Contact Info) Description 11/23/2023 [facility] Medical Advice [facility] Neurology Clinic [address] [place] [address] Yemi Bacon MD [address] [place] [address] [id number] [place] [address] Social History Tobacco Use Types [...] on file 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 Gender Identity Not on file Sexual Orientation Not on file documented as of this encounter Plan of Treatment Not on file documented as of this encounter Visit Diagnoses Not on filedocumented in this encounter Care Teams Music Autographer Relationship Specialty Start Date End Date Nicanro Thomas MD [facility] [address] [place] [address] PCP - General 07/13/05 Natacha Meade [facility] 9 [place], [place] [address] Pharmacist Pharmacist 11/09/23 02/08/24 Natacha Meade [facility] 9 [place], [place] [phone] Assigned MTM Pharmacist 11/25/23 Yemi Bacon MD 9 [facility] [id number] [place], [place] [id number] Assigned Neuroscience Provider 11/25/23 documented as of this encounter
--- OUTSIDE RECORDS SUMMARY | 2024-09-27 00:38 | XMS_ITS | Encounter Summary ---
Author Organization [place] Address [address] [place] [address]. [place] [address] Care Team Providers Care Traffic Worker Name Role Phone Nicanor Thomas MD Primary Care Provider Natacha Meade [facility] Unavailable [phone] Natacha Meade [facility] Unavailable [phone] Yemi Bacon MD Unavailable Encounter Details Date Type Department Care Team (Late st Contact Info) Description 11/23/2023 [facility] Medical Advice [facility] Neurology Clinic [address] [place] [address] Yemi Bacon MD [address] [place] [address] [id number] [place] [address] Social History Tobacco Use Types [...] on file 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 Gender Identity Not on file Sexual Orientation Not on file documented as of this encounter Plan of Treatment Not on file documented as of this encounter Visit Diagnoses Not on filedocumented in this encounter Care Teams Traffic Worker Relationship Specialty Start Date End Date Nicanor Thomas MD [facility] [address] [place] [address] PCP - General 07/13/05 Natacha Meade [facility] 9 [place], [place] [address] Pharmacist Pharmacist 11/09/23 02/08/24 Natacha Meade [facility] 9 [place], [place] [id number] Assigned MTM Pharmacist 11/25/23 Yemi Bacon MD 9 [facility] [id number] [place], [place] [id number] Assigned Neuroscience Provider 11/25/23 documented as of this encounter
--- OUTSIDE RECORDS SUMMARY | 2024-09-27 00:38 | XMS_ITS | Encounter Summary ---
Author Organization [place] Address [address] [place] [address]. 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 Gender Identity Not on file Sexual Orientation Not on file documented as of this encounter Plan of Treatment Not on file documented as of this encounter Visit Diagnoses Not on filedocumented in this encounter Care Teams Driver Education Road Instructor Relationship Specialty Start Date End Date Nicanor Thomas MD [facility] [address] [place] [address] PCP - General 07/13/05 Natacha Meade [facility] 9 [place] [address] Pharmacist Pharmacist 11/09/23 02/08/24 Natacha Meade [facility] [address] [place] [address] Assigned MTM Pharmacist 11/25/23 Yemi Bacon MD [address] [place] [address] [id number] [place] [address] Assigned Neuroscience Provider 11/25/23 documented as of this encounter
--- OUTSIDE RECORDS SUMMARY | 2024-09-27 00:38 | XMS_ITS | Encounter Summary ---
Author Organization [place] Address [address] [place] [address]. [place] [address] Care Team Providers Care Fern Gatherer Name Role Phone Nicanor Thomas MD Primary Care Provider Natacha Meade [facility] Unavailable [phone] Natacha Meade [facility] Unavailable [phone] Yemi Bacon MD Unavailable Encounter Details Date Type Department Care Team (Late st Contact Info) Description 11/23/2023 [facility] Medical Advice [facility] Neurology Clinic [address] [place] [address] Yemi Bacon MD [address] [place] [address] [id number] [place] [address] Social History Tobacco Use Types [...] on file 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 Gender Identity Not on file Sexual Orientation Not on file documented as of this encounter Plan of Treatment Not on file documented as of this encounter Visit Diagnoses Not on filedocumented in this encounter Care Teams Fern Gatherer Relationship Specialty Start Date End Date Nicanor Thomas MD [facility] [address] [place] [address] PCP - General 07/13/05 Natacha Meade [facility] 9 [place], [place] [address] Pharmacist Pharmacist 11/09/23 02/08/24 Natacha Meade [facility] 9 [place], [place] [phone] Assigned MTM Pharmacist 11/25/23 Yemi Bacon MD 9 [facility] [id number] [place], [place] [id number] Assigned Neuroscience Provider 11/25/23 documented as of this encounter
--- OUTSIDE RECORDS SUMMARY | 2024-09-27 00:39 | XMS_ITS | Encounter Summary ---
Author Organization [place] Address [address] [place] [address]. [place] [address] Care Team Providers Care Admissions Nurse Name Role Phone Nicanor Thomas MD Primary Care Provider Natacha Meade [facility] Unavailable [phone] Natacha Meade [facility] Unavailable [phone] Yemi Bacon MD Unavailable Encounter Details Date Type Department Care Team (Late st Contact Info) Description 11/11/2023 [facility] [place] [facility] Neurology Clinic [address] [place] [address] Yemi Bacon MD [address] [place] [address] [id number] [place] [address] Social History Tobacco Use Types [...] on file 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 Gender Identity Not on file Sexual Orientation Not on file documented as of this encounter Plan of Treatment Not on file documented as of this encounter Visit Diagnoses Not on filedocumented in this encounter Care Teams Admissions Nurse Relationship Specialty Start Date End Date Nicanor Thomas MD [facility] [address] [place] [address] PCP - General 07/13/05 Natacha Meade [facility] 9 [place], [place] [address] Pharmacist Pharmacist 11/09/23 02/08/24 Natacha Meade [facility] 9 [place], [place] [phone] Assigned MTM Pharmacist 11/25/23 Yemi Bacon MD 9 [facility] [id number] [place], [place] [id number] Assigned Neuroscience Provider 11/25/23 documented as of this encounter
--- OUTSIDE RECORDS SUMMARY | 2024-09-27 00:39 | XMS_ITS | Encounter Summary ---
Author Organization [place] Address [address] [place] [address]. [place] [address] Care Team Providers Care Refining Still Operator Name Role Phone Nicanor Thomas MD Primary Care Provider Natacha Meade [facility] Unavailable [phone] Natacha Meade [facility] Unavailable [phone] Yemi Bacon MD Unavailable Encounter Details Date Type Department Care Team (Late st Contact Info) Description 11/17/2023 [facility] [place] [facility] [address] [place] [address] Yemi Bacon MD [address] [place] [address] [id number] [place] [address] Social History Tobacco Use Types [...] file 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 Gender Identity Not on file Sexual Orientation Not on file documented as of this encounter Plan of Treatment Not on file documented as of this encounter Visit Diagnoses Not on filedocumented in this encounter Care Teams Refining Still Operator Relationship Specialty Start Date End Date Nicanor Thomas MD [facility] [address] [place] [address] PCP - General 07/13/05 Natacha Meade [facility] 9 [place], [place] [address] Pharmacist Pharmacist 11/09/23 02/08/24 Natacha Meade [facility] 9 [place], [place] [id number] Assigned MTM Pharmacist 11/25/23 Yemi Bacon MD 9 [facility] [id number] [place], [place] [id number] Assigned Neuroscience Provider 11/25/23 documented as of this encounter
[2024-09-27 00:44] VITALS: O2SAT 84
[2024-09-27 00:44] LABS: Chloride* 101 mmol/L (96-114); Potassium* 3.8 mmol/L (3.6-5.1); Sodium* 141 mmol/L (135-149)
[2024-09-27 00:45] VITALS: O2SAT 84
[2024-09-27 00:47] LABS: Anion Gap 10 mEq/L (7-15); Blood Urea Nitrogen* 17 mg/dL (7-30); Calcium* 10.2 mg/dL (8.4-10.6); Carbon Dioxide* 30 mmol/L (20-32); Creatinine* 0.8 mg/dL (0.5-1.5); Est. Creatinine Clearance* 60.51; Estimated Glomerular Filt Rate 84 ml/min; Glucose* 129 mg/dL (60-115)
[2024-09-27 01:14] VITALS: O2SAT 90
[2024-09-27] MEDS: OXYCODONE 1 MG/ML ORAL SOLN 5 MG PO ×4 (01:26→01:33)
== END 2024-09-27 01:43 | disposition home or self-care (01) ==
PROVIDERS: Emergency Provider Family Medicine; PCP Physician Assistant Medical
DX: G12.21 Amyotrophic lateral sclerosis (principal); J06.9 Acute upper respiratory infection, unspecified; R05.9 Cough, unspecified; R51.9 Headache, unspecified; J02.9 Acute pharyngitis, unspecified
CPT/HCPCS: 36415; 80048; 83605; 85025; 87631; 94761; 96374; 96376; 99283; 99284; A9270; J3010; J7030